=== PATIENT | female | born 1945 | race Caucasian/White ===

== ENCOUNTER → 2018-04-28 08:15 | Outpatient (CLI) | payer MEDICARE, OTHER, SELFPAY ==
[2018-04-28 10:06] LABS: Thyroid Stimulating Hormone 9.02 uIU/mL (0.47-4.68)
== END ==
PROVIDERS: PCP Physician Assistant; Visit Provider Internal Medicine Endocrinology, Diabetes & Metabolism
DX: E03.9 Hypothyroidism, unspecified (principal); Z86.39 Personal history of other endocrine, nutritional and metabolic disease
CPT/HCPCS: 36415; 84443

== ENCOUNTER → 2018-07-01 08:51 | Outpatient (CLI) | payer MEDICARE, OTHER, SELFPAY ==
[2018-07-01 10:56] LABS: Thyroid Stimulating Hormone 1.25 uIU/mL (0.47-4.68)
== END ==
PROVIDERS: PCP Physician Assistant; Visit Provider Internal Medicine Endocrinology, Diabetes & Metabolism
DX: E03.9 Hypothyroidism, unspecified (principal)
CPT/HCPCS: 36415; 84443

== ENCOUNTER → 2018-09-05 15:11 | Outpatient (CLI) | payer MEDICARE, OTHER, SELFPAY ==
--- NOTE | 2018-09-05 | DI.MG.S_ITS ---
BILATERAL DIGITAL SCREENING MAMMOGRAM 3D/2D WITH CAD: 09/05/2018 CLINICAL: Routine screening. Comparison is made to exams dated: 08/25/2017 mammogram, 08/17/2016 mammogram, and 08/16/2015 mammogram - [facility]. The tissue of both breasts is predominantly fatty. Current study was also evaluated with a Computer Aided Detection (CAD) system. No significant masses, calcifications, or other findings are seen in either breast. There has been no significant interval change. IMPRESSION: NEGATIVE There is no mammographic evidence of malignancy. A 1 year screening mammogram is recommended. This exam was interpreted at Station ID: [id number]. NOTE: For mammograms, a report in lay terms will be sent to the patient. Approximately 15% of breast malignancies will not be visualized mammographically. In the management of a palpable breast mass, a negative mammogram must not discourage biopsy of a clinically suspicious lesion. Electronically Signed By: Mayela felix/mal:09/05/2018 15:46:05 letter sent: Normal Exam ACR BI-RADS Category 1: Negative [id number]
== END ==
PROVIDERS: PCP Physician Assistant; Visit Provider Physician Assistant
DX: Z12.31 Encounter for screening mammogram for malignant neoplasm of breast (principal)
CPT/HCPCS: 77063; 77067

== ENCOUNTER → 2018-09-22 11:57 | Outpatient (CLI) | payer MEDICARE, OTHER, SELFPAY | PROVIDERS: Family Provider Physician Assistant; PCP Physician Assistant; Visit Provider Orthopaedic Surgery Foot and Ankle Surgery | DX: Z01.818 Encounter for other preprocedural examination (principal); Z01.812 Encounter for preprocedural laboratory examination; F51.01 Primary insomnia; G47.33 Obstructive sleep apnea (adult) (pediatric) | CPT/HCPCS: 93005; 99214 ==

== ENCOUNTER 2018-09-27 07:42 | Day surgery (SDC) | payer MEDICARE, OTHER, SELFPAY ==
[2018-09-21 14:24] VITALS: BMI 30.2
[2018-09-27] VITALS (7 sets, daily range): BP systolic 120–141; BP diastolic 53–68; PULSE 54–74; RESP 9–17; TEMP 36.3–36.6; O2SAT 90–100; BMI 30.2
[2018-09-27] MEDS: LACTATED RINGERS 1,000 ML 42 ML IV (08:29)
--- NOTE | 2018-09-27 09:18 | PM.PREOP ---
Pre-operative Note Interval Note Pre-op Check: Yes History & Physical Reviewed by Physician and Yes Exam Performed Changes: No
--- NOTE | 2018-09-27 09:32 | P.OP_ITS ---
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 Reconstruction angular deformity toe left, 3rd T2 CPT 22716 2. Removal of painful orthopedic hardware, implant deep, left 2nd toe MTP joint T1 cpt 89307 Same procedure as scheduled: Yes Indications: The patient is a 73-year-old female with history of multiple surgical procedures to her left foot by other physicians. Patient has had a failed angular corrections on the 2nd and 3rd toes. She has a painful angular deformity of the left 3rd toe with lateral collateral ligament failure and crossover and extensor contracture. The patient also has loss of fixation in the metatarsal neck of her 2nd toe with a intra-articular screw causing 2nd MTP pain, joint degeneration and arthritis. The patient has requested revision left 3rd toe angular deformity repair as well as removal of the intra-articular screw at the 2nd MTP joint. The patient understands the object of the surgery is to correct her angular deformity at the 3rd toe. Patient understands that persistent pain, recurrence of deformity, failure of hardware, and general dissatisfaction with the procedure are possibilities. Additionally the patient requests hardware removal from the 2nd MTP joint. Patient understands that this should help with the hardware related pain in this joint but will not change the degenerative changes at the 2nd MTP joint. The risks benefits and alternatives to the procedure were explained to the patient in detail including but not limited to infection, recurrent deformity, incomplete correction, persistent pain, DVT, pulmonary embolism, some interact hardware, progressive arthritis. The patient has elected to proceed with surgery. Consent was signed in the office. Patient understands she will be heel weight-bearing after the surgery and that it is important to elevate above the heart level for the 1st 2 weeks after surgery to reduce swelling and pain. The patient will start the use of aspirin 325 mg for DVT prophylaxis on postoperative day 1. Surgeon: Petrona Hermosillo Click Yes if Unassisted: Yes Anesthesia Type: General and Local Operative Notes Findings: 3rd toe extensor tendon contracture. Angular deformity of the left 3rd toe with incompetence of the lateral collateral ligament. preserved MTPJ articular surface. intact Plantar plate Intra-articular penetration of the small screw at the 2nd MTP joint. extensive Degenerative changes 2nd MTPJ. Closure Type: primary Specimen(s): none sent Implants & Drains: Arthrex 2.2 mm x 4 mm micro titanium corkscrew anchor 0.045 K-wire Applied: other (Dressing) Estimated Blood Loss (mL): 2 Blood products transfused: none Tourniquet time (min): 56 Procedure in detail: Patient was seen in the site of surgery marked in the preoperative area. This was the left foot 2nd and 3rd toes. The patient was then brought back to the operating room placed on the operative table in the supine position and general anesthesia was administered. Bony prominences were padded. A well-padded thigh tourniquet was placed. An SCD was placed on the non operative leg. The left lower extremity was prepped and draped in the standard sterile fashion. Formal time-out procedure was called to confirm the patient, procedure, side and site of surgery, administration of preoperative antibiotics. All personnel were agreed. 2 g of Ancef were administered for the preoperative antibiotic. Correction of angular deformity 3rd toe MTP joint: An Esmarch bandage was used for exsanguination and the tourniquet was elevated to 250 mm of mercury. This stayed there for 56 min. A curved incision was then made over the left 3rd toe MTP joint deviating medially to the interspace between the 2nd and 3rd toes in an Lazy S fashion. Left 3rd toe MTP the joint and extensor tendons were exposed. The extensor tendons were taut. This was Z lengthened for later repair. Capsulotomy was made entering the 3rd MTP joint. Metatarsal head cartilage and proximal phalanx base cartilage was intact. The lateral collateral ligamentous structures were notably deficient and there was medial deviation of the toe at the MTP joint. Plantar plate was visualized and intact. The joint was irrigated. Lateral collateral ligament structures for a very attenuated even back at the metatarsal neck attachment. These were carefully preserved. Lateral collateral ligament was reconstructed using Arthrex micro corkscrew anchor 2.2 x 4 mm. The K-wire guidewire was placed and confirmed on mini C-arm images then the anchor was placed into the base of the proximal phalanx. Additionally due to the attenuated lateral collateral tissues I was concerned for stability of fixation with the suture anchor along therefore a 045 K-wire was placed from the base of the proximal phalanx out the distal phalanx and then retrograde across the MTP joint to hold the MTP joint reduced and act as a temporary back up to the repair. This was confirmed on C- arm. Next The 2 fiber wires from the suturing were then utilized to suture through the remaining lateral collateral tissues at the metatarsal neck. These were tied down. This corrected the deformity well. Final mini C-arm images were taken to confirm hardware placement and alignment. Second MTP joint hardware removal: Attention was then turned to the 2nd MTP joint. The subcutaneous dissection was taken medially over the extensor tendons for the 2nd MTP joint. These were retracted medial and lateral and a capsulotomy was made over the 2nd MTP joint. The loose intra-articular screw was visualized and removed using a rongeur. The MTP joint surface was inspected and found to be significantly degenerative with cartilage loss of sclerosis and osteophytes. The joint was noted to be stable on drawer testing. The wound was then irrigated. The tourniquet was released and hemostasis achieved. The wound was closed in a layered fashion. The extensor tendons over the 3rd MTP joint were repaired using a 4 0 Vicryl. Capsulotomy was closed with 3 O Vicryl. Subcutaneously 4 0 Monocryl was used for repair and then 4 O nylon in the skin. 7 cc of 0.25% Marcaine was used for local anesthesia. Pin cap was placed on the K-wire. A sterile dressing was placed with gauze Xeroform and Kerlix Coleman wrap and the patient was placed into a postoperative boot. Patient was awoken from anesthesia and taken to recovery room in good condition. All counts were correct. There were no known no immediate complications from this procedure. Complications: none Condition: stable Disposition: PACU Plan for aftercare: The patient will be heel weight-bearing in the boot for approximately 4 weeks until her K-wires removed. Sutures remain in place approximately 3 weeks. She will strictly elevate above her heart level the next 2-3 weeks to reduce swelling. She will start taking 325 mg of aspirin daily on postop day 1 for DVT prophylaxis.
[2018-09-27] MEDS: CEFAZOLIN 2 GM/100 ML FROZ.PIGGY IV (09:43)
--- NOTE | 2018-09-27 10:07 | SUR.OPER ---
Supine on padded OR bed, head on pillow, arms secured on padded arm boards at <90 degrees abduction, legs uncrossed, safety belt at abdomen, tape over blanket over nonoperative leg. Blankets as bolsters under operative hip and leg place by surgeon.
[2018-09-27] MEDS: BUPIVACAINE 0.25% (PF) VIAL 30 ML INJ (11:01)
--- NOTE | 2018-09-27 11:21 | SUR.OPER ---
Pump for post operative walker boot sent with patient to Recovery in ziplock bag with patient label attached.
[2018-09-27] MEDS: fentaNYL 100 MCG/2 ML INJ 50 MCG IV ×2 (11:25→11:42)
[2018-09-27] MEDS: HYDROCODONE/ACET 5/325 TABLET 1 TAB PO (12:24)
--- NOTE | 2018-09-27 15:16 | SUR.PHASEII ---
late entry: 1445 assumed care from prem, pt has had her l foot elevated and iced, medicated with po pain meds. pt now states pain in down to 01/01. friend arrived and d/c instructions discussed at length with both, both voiced an understanding. pt then ready to go home, this rn assisted pt to dress and pt left when ready and in stable condition, dressing to l foot remained in boot and c/d/i.
== END 2018-09-27 13:30 | disposition home or self-care (01) ==
PROVIDERS: PCP Physician Assistant; Visit Provider Orthopaedic Surgery Foot and Ankle Surgery
PROC: 0QBP0ZZ Excision of Left Metatarsal, Open Approach (ICD-10-PCS; CPT 28292; principal; 2018-09-27 09:45)
PROC: (CPT 27691; 2018-09-27 09:45)
DX: M20.62 Acquired deformities of toe(s), unspecified, left foot (principal); T84.84XA Pain due to internal orthopedic prosthetic devices, implants and grafts, initial encounter; G47.33 Obstructive sleep apnea (adult) (pediatric); E03.9 Hypothyroidism, unspecified
CPT/HCPCS: 28313; 20680; J0690; J1100; J2704; J3010

== ENCOUNTER → 2018-10-19 08:32 | Outpatient (CLI) | payer MEDICARE, OTHER, SELFPAY ==
[2018-10-19 10:46] LABS: Thyroid Stimulating Hormone 2.34 uIU/mL (0.47-4.68)
== END ==
PROVIDERS: Family Provider Physician Assistant; PCP Physician Assistant; Visit Provider Internal Medicine Endocrinology, Diabetes & Metabolism
DX: E03.9 Hypothyroidism, unspecified (principal)
CPT/HCPCS: 36415; 84443

== ENCOUNTER → 2019-02-27 08:12 | Outpatient (CLI) | payer MEDICARE, OTHER, SELFPAY ==
[2019-02-27 09:00] LABS: Add Manual Diff / Slide Review NO; Basophils Absolute Auto 0 /uL (0-100); Basophils Percent Auto 0.8 % (0-2); Eosinophils Absolute Auto 100 /uL (0-450); Eosinophils Percent Auto 3.8 % (2-4); Hematocrit 38.3 % (36-46); Hemoglobin 12.8 g/dL (12.0-16.0); Lymphocytes Absolute Auto 800 /uL (1100-4500); Lymphocytes Percent Auto 22.8 % (25-40); Mean Corpuscular HGB Conc 33.4 % (30-36); Mean Corpuscular Hemoglobin 30.6 PG (26-34); Mean Corpuscular Volume 91.5 fL (80-100); Monocytes Absolute Auto 300 /uL (0-900); Monocytes Percent Auto 9.8 % (3-14); Neutrophils Absolute Auto 2200 /uL (1500-7000); Neutrophils Percent Auto 62.8 % (50-75); Platelet Count 215 X10^3/uL (150-400); Red Blood Cell Count 4.18 X10^6/uL (4.0-5.2); Red Cell Distribution Width 13.5 % (11.6-14.8); White Blood Cell Count 3.6 X10^3/uL (4.5-11.0)
[2019-02-27 09:30] LABS: Alanine Aminotransferase 28 IU/L (9-52); Albumin 4.3 g/dL (3.5-5.0); Albumin Globulin Ratio 1.5 (1.0-2.8); Alkaline Phosphatase 74 U/L (38-126); Aspartate Aminotransferase 25 IU/L (14-36); BUN Creatinine Ratio 21.7 (6-22); Bilirubin Total 0.5 mg/dL (0.2-1.3); Blood Urea Nitrogen 13 mg/dL (7-17); Carbon Dioxide 28 mmol/L (22-32); Chloride 99 mmol/L (98-107); Cholesterol 141 mg/dL (140-199); Estimated Glomerular Filt Rate > 60.0 mL/min (>60); Globulin 2.8 g/dL (1.7-4.1); Glucose 89 mg/dL (80-110); HDL Cholesterol 49 mg/dL (40-60); HEMOLYSIS < 15 (0-50); LDL Cholesterol Calculated 76 mg/dL (<100); Potassium 4.5 mmol/L (3.4-5.1); Sodium 136 mmol/L (137-145); Total Protein 7.1 g/dL (6.3-8.2); Triglycerides 79 mg/dL (35-150)
[2019-02-27 09:51] LABS: Thyroid Stimulating Hormone 1.17 uIU/mL (0.47-4.68)
== END ==
PROVIDERS: PCP Physician Assistant; Visit Provider Physician Assistant
DX: E78.2 Mixed hyperlipidemia (principal); I10 Essential (primary) hypertension; E03.9 Hypothyroidism, unspecified
CPT/HCPCS: 36415; 80053; 80061; 84443; 85025

== ENCOUNTER → 2019-03-17 08:32 | Outpatient (CLI) | payer MEDICARE, OTHER, SELFPAY ==
--- NOTE | 2019-03-17 | DI.MG.S_ITS ---
UNILATERAL LEFT DIGITAL DIAGNOSTIC MAMMOGRAM 3D/2D: 03/17/2019 CLINICAL: Left lump with pain. Comparison is made to exams dated: 09/05/2018 mammogram, 08/25/2017 mammogram, and 08/17/2016 mammogram - [facility]. There are scattered fibroglandular elements in left breast. No significant masses, calcifications, or other findings are seen in the breast. IMPRESSION: INCOMPLETE: NEEDS ADDITIONAL IMAGING EVALUATION A targeted ultrasound of the left breast is recommended and will be performed immediately following this exam. Ultrasound is recommended. This exam was interpreted at Station ID: [id number]. NOTE: For mammograms, a report in lay terms will be sent to the patient. Approximately 15% of breast malignancies will not be visualized mammographically. In the management of a palpable breast mass, a negative mammogram must not discourage biopsy of a clinically suspicious lesion. Electronically Signed By: Mayela felix/mal:03/17/2019 09:22:48 ACR BI-RADS Category 0: Incomplete [id number]
--- NOTE | 2019-03-17 | DI.US.S_ITS ---
ULTRASOUND OF LEFT BREAST: 03/17/2019 CLINICAL: Left areola tenderness. Comparison is made to exams dated: 03/17/2019 mammogram, 09/05/2018 mammogram, 08/25/2017 mammogram, 08/17/2016 mammogram, and 08/16/2015 mammogram - [facility]. Color flow and real-time ultrasound of the left breast were performed on the areas of interest. Florentino scale images of the real-time examination were reviewed. There is no ultrasound abnormality to correspond with the palpable finding by the patient in the subareolar region. IMPRESSION: SUSPICIOUS OF MALIGNANCY No suspicious lesion within the subareolar region to correspond with the palpable abnormality. Of note, the patient describes a raised, erythematous region on the left areola. Paget's disease cannot be excluded. Surgical consultation for subareolar excisional biopsy is recommended. This exam was interpreted at Station ID: [id number]. Electronically Signed By: Mayela felix/:03/21/2019 15:23:29 letter sent: Biopsy Required Ultrasound BI-RADS: 4 Suspicious abnormality
== END ==
PROVIDERS: PCP Physician Assistant; Visit Provider Physician Assistant
DX: R92.8 Other abnormal and inconclusive findings on diagnostic imaging of breast (principal); N64.4 Mastodynia; M85.851 Other specified disorders of bone density and structure, right thigh; Z78.0 Asymptomatic menopausal state; Z82.62 Family history of osteoporosis
CPT/HCPCS: 76642; 77065; 77080; G0279

== ENCOUNTER 2019-06-26 14:30 | Outpatient (RCR) | payer MEDICARE, OTHER, SELFPAY ==
--- NOTE | 2019-03-14 12:03 | PT.OIE ---
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) Obstructive sleep apnea of adult (Chronic) Primary insomnia (Chronic) Allergic rhinitis (Acute) Chronic cough (Acute) HTN (hypertension) (Acute) Hyperlipidemia (Acute) Hypothyroidism (Acute) Lichen sclerosus et atrophicus (Acute) GLORIA on CPAP (Acute) Osteoarthritis (Acute) Osteopenia (Acute) Vitamin D deficiency (Acute) Past Surgical History (Last Updated 09/21/18 @ 14:50 by Jaclyn Tello RN) History of facelift (Acute) Hx of bilateral breast reduction surgery (Acute) Hx of bladder repair surgery (Acute) Hx of partial thyroidectomy (Acute) Hx of partial thyroidectomy (Acute) S/P UVPP (uvulopalatopharyngoplasty) (Acute) S/P foot surgery, right (Acute) S/P trigger finger release (Acute) History of breast mammoplasty (Resolved) Provider Visit Care Team Role Provider Type Hamida Schaefer PA-C Attending Provider Advanced Rounder And Backer Primary Care Provider Specialty: Internal Medicine Address: [address] [place] [address], [facility] Email: Physical Therapy Initial Evaluation PT-OP-A Visit Information Start: 03/13/19 17:35 Freq: Status: Active Protocol: Document 03/14/19 08:10 [facility] (Rec: 03/14/19 09:10 [facility] [id number]) Out-Patient Physical Therapy Visit Information Visit Information Visit Type Initial Evaluation Visit Start Time 08:15 Visit Stop Time 09:00 Total Visit Minutes 45 Visit Number 1 Number of PREVENTION COORDINATOR Visits 0 PT-OP-B Current Condition Start: 03/13/19 17:35 Freq: Status: Active Protocol: Document 03/14/19 08:10 [facility] (Rec: 03/14/19 09:10 [facility] [id number]) Current Condition History of Current Condition Onset Date 6 weeks ago flare up Current Complaints R shoulder pain History of Current Condition Pt reports a few years ago, she was decorating the [employer] tree and reached up high and it felt like someone stabbed a dagger into her shoulder then saw the MD and got a MRI which showed a small tear in the rotator cuff and a small bone spur and torn biceps. Pt reports she has had 4 instances since then that have set it off. Pt reports when it does it then it sets her back several weeks. There is no specific movement that seems to flare it up. Reports she was travelling this time and her ROM as very limited for reaching out and up and still is. Pt stopped doing her upper body exercises when this initially happened d/t being concerned to hurt it more. Prior Treatments and Tests MRI years ago Future Testing and Treatments Planned Follow up with ortho Treatment Goals Patient/Caregiver Goals Start PT before seeing ortho; make her shoulder managable, livable and reliable. PT-OP-C Subjective Start: 03/13/19 17:35 Freq: Status: Active Protocol: Document 03/14/19 08:10 [facility] (Rec: 03/14/19 09:10 [facility] [id number]) Patient Questionnaires Quick Dash- Upper Extremity Quick Dash UE Score 25 Quick Dash UE Impairment 20 to 39% Impaired (Score 20- 39) OP-PT Pain Assessment Location R shoulder Pain Location Details R ant lat shoulder Scale Used Numeric (1 - 10) Description Sharp Other Pain Aggravating Factors driving, reaching Pain Alleviating Factors Rest Other Pain Alleviating Factors cream PT-OP-J Posture/Palpation/Skin Start: 03/13/19 17:35 Freq: Status: Active Protocol: Document 03/14/19 08:10 [facility] (Rec: 03/14/19 09:10 [facility] [id number]) Posture Evaluation Eddie Postural Classification System Eddie Postural Classifications Vertical/Posterior Comments Posture Comments inc kyphosis & fwd head & shoulders PT-OP-K Range of Motion Start: 03/13/19 17:35 Freq: Status: Active Protocol: Document 03/14/19 08:10 [facility] (Rec: 03/14/19 09:10 [facility] [id number]) Shoulder Goniometric Range of Motion Shoulder Measured in Degrees Right Passive Testing Position Supine Flexion 140 Abduction 114 External Rotation at 90 degrees 78 Abduction Internal Rotation 38 Left Active Testing Position Standing Flexion 168 Extension 71 Abduction 160 External Rotation at 90 degrees 85 Abduction External Rotation at 0 degrees Abduction 78 Internal Rotation 80 Internal Rotation Behind Back (text) T6 Right Active Testing Position Standing Flexion 88 Extension 40 Abduction 93 External Rotation at 0 degrees Abduction 50 Internal Rotation Behind Back (text) sacrum PT-OP-L Special Tests Start: 03/13/19 17:35 Freq: Status: Active Protocol: Document 03/14/19 08:10 [facility] (Rec: 03/14/19 09:10 [facility] [id number]) Special Tests Shoulder Special Tests speeds Test Results positive yergesons Test Results negative Barbosa Agustin Impingement Test Results positive Neer Impingement Test Results positive Empty Can Test Results positive PT-OP-M Strength Start: 03/13/19 17:35 Freq: Status: Active Protocol: Document 03/14/19 08:10 [facility] (Rec: 03/14/19 09:10 [facility] [id number]) Shoulder Strength Shoulder Manual Muscle Testing Right Flexion 3- Fair- Extension 4- Good- Abduction (C5) 3- Fair- External Rotation 4- Good- Internal Rotation 4 Good Left Flexion 4- Good- Extension 4+ Good+ Abduction (C5) 4- Good- External Rotation 5 Normal Internal Rotation 5 Normal PT-OP-Q Treatments Start: 03/13/19 17:35 Freq: Status: Active Protocol: Document 03/14/19 08:10 [facility] (Rec: 03/14/19 09:10 [facility] [id number]) Therapeutic Exercises Standing Exercises shoulder ext Standing Exercise Name row Side bilateral Equipment Used L1 Reps/Minutes 15 stretch Standing Exercise Name UT Side bilateral Reps/Minutes 20 sec Self-Care/Home Management Treatment Education Other Education edu on mechanics & anatomy of shoulder PT-OP-T Assessment and Plan Start: 03/13/19 17:35 Freq: Status: Active Protocol: Document 03/14/19 08:10 [facility] (Rec: 03/14/19 09:10 [facility] [id number]) Physical Therapy Assessment Rehab Potential Rehabilitation Potential Good Evaluation Complexity Number of Personal Factors/Comorbidities 3 or More Number of Body Systems Impaired 4 or More Clinical Presentation at Evaluation Evolving Impairments Impairments Activity Tolerance Functional Activities Functional Mobility Pain Posture ROM Soft Tissue Mobility Strength Goals DASH Skilled Nursing Goal (LTG) DASH score to less than 8 to show improved functional ability LTG Duration 05/14/19 ROM Short Term Goal (STG) Pt will have full PROM to allow improvement in motion. STG Duration 04/13/29 Tiler'S Assistant Goal (LTG) Pt will have R full AROM as compared to L side to allow greater ease with ADLs. LTG Duration 05/14/19 strength Short Term Goal (STG) Pt will be indep with HEP STG Duration 04/13/19 Skilled Nursing Goal (LTG) Pt will have 5/5 in B UE allowing return to typical activities without pain. LTG Duration 05/14/19 Assessment Summary Assessment Pt reports to PT with flare of of R shoulder pain 6 weeks ago with hx of chronic issue and MRI indicating biceps & rotator cuff tears with AC joint calcification. She is motivated to improve her mobility and will follow up with an orthopedic in the next month to determine next step. She has limited ROM, impaired ADLs, dec strength and pain with activity that limits her significantly d/t R shoulder pain. Physical Therapy Plan Frequency and Duration Frequency of Treatment 2x/Week Duration of Treatment 2 months Plan of Care Start Date 03/14/29 Plan of Care End Date 05/14/19 Therapeutic Interventions Therapeutic Interventions Aquatic Therapy Home Exercise Program Joint Mobilizations Manual Therapy Neuromuscular Re-education Patient/Caregiver Education Self-Care/Home Management Soft Tissue Mobilization Taping Therapeutic Activities Therapeutic Exercises Modalities Cold Pack/Ice Massage Electric Stimulation Hot Packs Infrared Therapy Iontophoresis Ultrasound Next Visit Focus/Plan Next Note Type Treatment Note Next Visit Plan LS stretch, scapular stability , PROM & joint GILLIAN mcgrath
--- NOTE | 2019-03-14 12:03 | PT.OPPOC ---
Current Diagnoses Incomplete rotator cuff tear or rupture of right shoulder, not specified as traumatic (03/14/19) Provider Visit Care Team Role Provider Type Hamida Schaefer PA-C Attending Provider Advanced [employer] Primary Care Provider Specialty: Internal Medicine Address: [address] [place] [address], [id number] Email: Plan Of Care PT-OP-T Assessment and Plan Start: 03/13/19 17:35 Freq: Status: Active Protocol: Document 03/14/19 08:10 [facility] (Rec: 03/14/19 09:10 [facility] [id number]) Physical Therapy Assessment Rehab Potential Rehabilitation Potential Good Evaluation Complexity Number of Personal Factors/Comorbidities 3 or More Number of Body Systems Impaired 4 or More Clinical Presentation at Evaluation Evolving Impairments Impairments Activity Tolerance Functional Activities Functional Mobility Pain Posture ROM Soft Tissue Mobility Strength Goals DASH Long-Term Goal (LTG) DASH score to less than 8 to show improved functional ability LTG Duration 05/14/19 ROM Short Term Goal (STG) Pt will have full PROM to allow improvement in motion. STG Duration 04/13/29 Senior Process Analyst Goal (LTG) Pt will have R full AROM as compared to L side to allow greater ease with ADLs. LTG Duration 05/14/19 strength Short Term Goal (STG) Pt will be indep with HEP STG Duration 04/13/19 Senior Process Analyst Goal (LTG) Pt will have 5/5 in B UE allowing return to typical activities without pain. LTG Duration 05/14/19 Assessment Summary Assessment Pt reports to PT with flare of of R shoulder pain 6 weeks ago with hx of chronic issue and MRI indicating biceps & rotator cuff tears with AC joint calcification. She is motivated to improve her mobility and will follow up with an orthopedic in the next month to determine next step. She has limited ROM, impaired ADLs, dec strength and pain with activity that limits her significantly d/t R shoulder pain. Physical Therapy Plan Frequency and Duration Frequency of Treatment 2x/Week Duration of Treatment 2 months Plan of Care Start Date 03/14/29 Plan of Care End Date 05/14/19 Therapeutic Interventions Therapeutic Interventions Aquatic Therapy Home Exercise Program Joint Mobilizations Manual Therapy Neuromuscular Re-education Patient/Caregiver Education Self-Care/Home Management Soft Tissue Mobilization Taping Therapeutic Activities Therapeutic Exercises Modalities Cold Pack/Ice Massage Electric Stimulation Hot Packs Infrared Therapy Iontophoresis Ultrasound Next Visit Focus/Plan Next Note Type Treatment Note Next Visit Plan LS stretch, scapular stability , PROM & joint mobs, AAROM Plan of Care Dates Plan of Care Start Date 03/14/29 Plan of Care End Date 05/14/19 Please Sign and Return: I have reviewed this Plan of Care and certify that the skilled therapy services above are required to meet the patient?s needs. Physician Signature Date Printed Name and Credentials Clinical Instructor Signature Printed Name and Credentials
--- NOTE | 2019-03-17 08:15 | PT.OTN ---
Current Diagnoses Incomplete rotator cuff tear or rupture of right shoulder, not specified as traumatic (03/17/19) Physical Therapy Treatment Note PT-OP-A Visit Information Start: 03/13/19 17:35 Freq: Status: Active Protocol: Document 03/17/19 07:28 [facility] (Rec: 03/17/19 08:15 [facility] [id number]) Out-Patient Physical Therapy Visit Information Visit Information Visit Type Treatment Note Visit Start Time 07:35 Visit Stop Time 08:25 Total Visit Minutes 50 Visit Number 2/10 Number of LICENSED OPTICAL DISPENSER Visits 0 PT-OP-B Current Condition Start: 03/13/19 17:35 Freq: Status: Active Protocol: Document 03/14/19 08:10 [facility] (Rec: 03/14/19 09:10 [facility] [id number]) Current Condition History of Current Condition Onset Date 6 weeks ago flare up Current Complaints R shoulder pain History of Current Condition Pt reports a few years ago, she was decorating the [employer] tree and reached up high and it felt like someone stabbed a dagger into her shoulder then saw the MD and got a MRI which showed a small tear in the rotator cuff and a small bone spur and torn biceps. Pt reports she has had 4 instances since then that have set it off. Pt reports when it does it then it sets her back several weeks. There is no specific movement that seems to flare it up. Reports she was travelling this time and her ROM as very limited for reaching out and up and still is. Pt stopped doing her upper body exercises when this initially happened d/t being concerned to hurt it more. Prior Treatments and Tests MRI years ago Future Testing and Treatments Planned Follow up with ortho Treatment Goals Patient/Caregiver Goals Start PT before seeing ortho; make her shoulder managable, livable and reliable. PT-OP-C Subjective Start: 03/13/19 17:35 Freq: Status: Active Protocol: Document 03/17/19 07:28 [facility] (Rec: 03/17/19 08:15 [facility] [id number]) OP-PT Subjective Patient Comments Patient Comments Pt reports exercises went okay . PT-OP-J Posture/Palpation/Skin Start: 03/13/19 17:35 Freq: Status: Active Protocol: Document 03/14/19 08:10 [facility] (Rec: 03/14/19 09:10 [facility] [id number]) Posture Evaluation Eddie Postural Classification System [facility] Postural Classifications Vertical/Posterior Comments Posture Comments inc kyphosis & fwd head & shoulders PT-OP-K Range of Motion Start: 03/13/19 17:35 Freq: Status: Active Protocol: Document 03/14/19 08:10 [facility] (Rec: 03/14/19 09:10 [facility] [id number]) Shoulder Goniometric Range of Motion Shoulder Measured in Degrees Right Passive Testing Position Supine Flexion 140 Abduction 114 External Rotation at 90 degrees 78 Abduction Internal Rotation 38 Left Active Testing Position Standing Flexion 168 Extension 71 Abduction 160 External Rotation at 90 degrees 85 Abduction External Rotation at 0 degrees Abduction 78 Internal Rotation 80 Internal Rotation Behind Back (text) T6 Right Active Testing Position Standing Flexion 88 Extension 40 Abduction 93 External Rotation at 0 degrees Abduction 50 Internal Rotation Behind Back (text) sacrum PT-OP-L Special Tests Start: 03/13/19 17:35 Freq: Status: Active Protocol: Document 03/14/19 08:10 [facility] (Rec: 03/14/19 09:10 [facility] [id number]) Special Tests Shoulder Special Tests speeds Test Results positive yergesons Test Results negative Barbosa Agustin Impingement Test Results positive Neer Impingement Test Results positive Empty Can Test Results positive PT-OP-M Strength Start: 03/13/19 17:35 Freq: Status: Active Protocol: Document 03/14/19 08:10 [facility] (Rec: 03/14/19 09:10 [facility] [id number]) Shoulder Strength Shoulder Manual Muscle Testing Right Flexion 3- Fair- Extension 4- Good- Abduction (C5) 3- Fair- External Rotation 4- Good- Internal Rotation 4 Good Left Flexion 4- Good- Extension 4+ Good+ Abduction (C5) 4- Good- External Rotation 5 Normal Internal Rotation 5 Normal PT-OP-Q Treatments Start: 03/13/19 17:35 Freq: Status: Active Protocol: Document 03/17/19 07:28 [facility] (Rec: 03/17/19 08:15 [facility] [id number]) Therapeutic Exercises Standing Exercises IR Standing Exercise Name w/towel Reps/Minutes 12 pully Standing Exercise Name flex, abd, IR Reps/Minutes 15 Comments flex & abd seated shoulder ext Standing Exercise Name row Side bilateral Equipment Used L1 Reps/Minutes 15 stretch Standing Exercise Name UT, LS, pec Side bilateral Reps/Minutes 20 sec Manual Therapy Treatment Soft Tissue Mobilization UT Body Location UT Mobilization Type Rolling Intensity/Depth Moderate Joint Mobilizations GH Joint GH Direction distraction, inf glide & post glide PT-OP-R Modalities Start: 03/13/19 17:35 Freq: Status: Active Protocol: Document 03/17/19 07:28 [facility] (Rec: 03/17/19 08:15 [facility] [id number]) Hot Pack/Cold Pack Treatment Cold Pack Location R shoulder Patient Position Supine Treatment Duration (minutes) 10 PT-OP-T Assessment and Plan Start: 03/13/19 17:35 Freq: Status: Active Protocol: Document 03/17/19 07:28 [facility] (Rec: 03/17/19 08:15 [facility] [id number]) Physical Therapy Assessment Goals DASH Prison Goal (LTG) DASH score to less than 8 to show improved functional ability LTG Duration 05/14/19 ROM Short Term Goal (STG) Pt will have full PROM to allow improvement in motion. STG Duration 04/13/29 Plastic Welder Goal (LTG) Pt will have R full AROM as compared to L side to allow greater ease with ADLs. LTG Duration 05/14/19 strength Short Term Goal (STG) Pt will be indep with HEP STG Duration 04/13/19 Prison Goal (LTG) Pt will have 5/5 in B UE allowing return to typical activities without pain. LTG Duration 05/14/19 Assessment Summary Assessment Pt was able to tolerate all exercises without c/o inc in pain. She did well with exercises iwth cueing for form . She felt all stretches appropriately. Improved ROM with repetition with exercises . Physical Therapy Plan Frequency and Duration Frequency of Treatment 2x/Week Duration of Treatment 2 months Plan of Care Start Date 03/14/29 Plan of Care End Date 05/14/19 Next Visit Focus/Plan Next Note Type Treatment Note Next Visit Plan Tbar AAROM, cont to progress ROM
--- NOTE | 2019-03-20 14:32 | PT.OTN ---
Current Diagnoses Incomplete rotator cuff tear or rupture of right shoulder, not specified as traumatic (03/20/19) Physical Therapy Treatment Note PT-OP-A Visit Information Start: 03/13/19 17:35 Freq: Status: Active Protocol: Document 03/20/19 13:47 [facility] (Rec: 03/20/19 14:32 [facility] [id number]) Out-Patient Physical Therapy Visit Information Visit Information Visit Type Treatment Note Visit Start Time 13:50 Visit Stop Time 14:40 Total Visit Minutes 50 Visit Number 3/10 Number of DOLLY DRIVER Visits 0 PT-OP-B Current Condition Start: 03/13/19 17:35 Freq: Status: Active Protocol: Document 03/14/19 08:10 [facility] (Rec: 03/14/19 09:10 [facility] [id number]) Current Condition History of Current Condition Onset Date 6 weeks ago flare up Current Complaints R shoulder pain History of Current Condition Pt reports a few years ago, she was decorating the [employer] tree and reached up high and it felt like someone stabbed a dagger into her shoulder then saw the MD and got a MRI which showed a small tear in the rotator cuff and a small bone spur and torn biceps. Pt reports she has had 4 instances since then that have set it off. Pt reports when it does it then it sets her back several weeks. There is no specific movement that seems to flare it up. Reports she was travelling this time and her ROM as very limited for reaching out and up and still is. Pt stopped doing her upper body exercises when this initially happened d/t being concerned to hurt it more. Prior Treatments and Tests MRI years ago Future Testing and Treatments Planned Follow up with ortho Treatment Goals Patient/Caregiver Goals Start PT before seeing ortho; make her shoulder managable, livable and reliable. PT-OP-C Subjective Start: 03/13/19 17:35 Freq: Status: Active Protocol: Document 03/20/19 13:47 [facility] (Rec: 03/20/19 14:32 [facility] [id number]) OP-PT Subjective Patient Comments Patient Comments Pt reports feeling physically exhausted and arms were tired after last session. She hasn't had a chance to do exercises. Reports she was reaching fwd and had a pain this weekend when making salad PT-OP-J Posture/Palpation/Skin Start: 03/13/19 17:35 Freq: Status: Active Protocol: Document 03/14/19 08:10 [facility] (Rec: 03/14/19 09:10 [facility] [id number]) Posture Evaluation Eddie Postural Classification System Eddie Postural Classifications Vertical/Posterior Comments Posture Comments inc kyphosis & fwd head & shoulders PT-OP-K Range of Motion Start: 03/13/19 17:35 Freq: Status: Active Protocol: Document 03/14/19 08:10 [facility] (Rec: 03/14/19 09:10 [facility] [id number]) Shoulder Goniometric Range of Motion Shoulder Measured in Degrees Right Passive Testing Position Supine Flexion 140 Abduction 114 External Rotation at 90 degrees 78 Abduction Internal Rotation 38 Left Active Testing Position Standing Flexion 168 Extension 71 Abduction 160 External Rotation at 90 degrees 85 Abduction External Rotation at 0 degrees Abduction 78 Internal Rotation 80 Internal Rotation Behind Back (text) T6 Right Active Testing Position Standing Flexion 88 Extension 40 Abduction 93 External Rotation at 0 degrees Abduction 50 Internal Rotation Behind Back (text) sacrum PT-OP-L Special Tests Start: 03/13/19 17:35 Freq: Status: Active Protocol: Document 03/14/19 08:10 [facility] (Rec: 03/14/19 09:10 [facility] [id number]) Special Tests Shoulder Special Tests speeds Test Results positive yergesons Test Results negative Barbosa Agustin Impingement Test Results positive Neer Impingement Test Results positive Empty Can Test Results positive PT-OP-M Strength Start: 03/13/19 17:35 Freq: Status: Active Protocol: Document 03/14/19 08:10 [facility] (Rec: 03/14/19 09:10 [facility] [id number]) Shoulder Strength Shoulder Manual Muscle Testing Right Flexion 3- Fair- Extension 4- Good- Abduction (C5) 3- Fair- External Rotation 4- Good- Internal Rotation 4 Good Left Flexion 4- Good- Extension 4+ Good+ Abduction (C5) 4- Good- External Rotation 5 Normal Internal Rotation 5 Normal PT-OP-Q Treatments Start: 03/13/19 17:35 Freq: Status: Active Protocol: Document 03/20/19 13:47 [facility] (Rec: 03/20/19 14:32 [facility] [id number]) Therapeutic Exercises Supine Exercises tbar Supine Exercise Name flex & ER Side right Reps/Minutes 10 ea Standing Exercises IR Standing Exercise Name w/towel Reps/Minutes 10 pully Standing Exercise Name flex, abd, IR Reps/Minutes 15 Comments flex & abd seated shoulder ext Standing Exercise Name row Side bilateral Equipment Used L1 Reps/Minutes 15 stretch Standing Exercise Name UT, LS, pec Side bilateral Reps/Minutes 30 sec Manual Therapy Treatment Soft Tissue Mobilization UT Body Location UT Mobilization Type Rolling Intensity/Depth Moderate Joint Mobilizations GH Joint GH Direction distraction, inf glide & post glide PT-OP-R Modalities Start: 03/13/19 17:35 Freq: Status: Active Protocol: Document 03/20/19 13:47 [facility] (Rec: 03/20/19 14:32 [facility] [id number]) Hot Pack/Cold Pack Treatment Cold Pack Location R shoulder Patient Position Supine Treatment Duration (minutes) 10 PT-OP-T Assessment and Plan Start: 03/13/19 17:35 Freq: Status: Active Protocol: Document 03/20/19 13:47 [facility] (Rec: 03/20/19 14:32 [facility] [id number]) Physical Therapy Assessment Goals DASH Rice Cleaning Machine Tender Goal (LTG) DASH score to less than 8 to show improved functional ability LTG Duration 05/14/19 ROM Short Term Goal (STG) Pt will have full PROM to allow improvement in motion. STG Duration 04/13/29 Prison Goal (LTG) Pt will have R full AROM as compared to L side to allow greater ease with ADLs. LTG Duration 05/14/19 strength Short Term Goal (STG) Pt will be indep with HEP STG Duration 04/13/19 Prison Goal (LTG) Pt will have 5/5 in B UE allowing return to typical activities without pain. LTG Duration 05/14/19 Assessment Summary Assessment Pt cont to improve with tolerance to inc range with PROM & AAROM exercises. She required very min cueing for HEP exercises with cueing to stay in painfree range. Physical Therapy Plan Frequency and Duration Frequency of Treatment 2x/Week Duration of Treatment 2 months Plan of Care Start Date 03/14/29 Plan of Care End Date 05/14/19 Next Visit Focus/Plan Next Note Type Treatment Note Next Visit Plan Advance ROM as tolerated & scapular stability
--- NOTE | 2019-03-23 11:19 | PT.OTN ---
Current Diagnoses Incomplete rotator cuff tear or rupture of right shoulder, not specified as traumatic (03/23/19) Physical Therapy Treatment Note PT-OP-A Visit Information Start: 03/13/19 17:35 Freq: Status: Active Protocol: Document 03/23/19 10:29 [facility] (Rec: 03/23/19 11:19 [facility] [id number]) Out-Patient Physical Therapy Visit Information Visit Information Visit Type Treatment Note Visit Start Time 10:30 Visit Stop Time 11:20 Total Visit Minutes 50 Visit Number 4/10 Number of SECONDS HANDLER Visits 0 PT-OP-B Current Condition Start: 03/13/19 17:35 Freq: Status: Active Protocol: Document 03/14/19 08:10 [facility] (Rec: 03/14/19 09:10 [facility] [id number]) Current Condition History of Current Condition Onset Date 6 weeks ago flare up Current Complaints R shoulder pain History of Current Condition Pt reports a few years ago, she was decorating the [employer] tree and reached up high and it felt like someone stabbed a dagger into her shoulder then saw the MD and got a MRI which showed a small tear in the rotator cuff and a small bone spur and torn biceps. Pt reports she has had 4 instances since then that have set it off. Pt reports when it does it then it sets her back several weeks. There is no specific movement that seems to flare it up. Reports she was travelling this time and her ROM as very limited for reaching out and up and still is. Pt stopped doing her upper body exercises when this initially happened d/t being concerned to hurt it more. Prior Treatments and Tests MRI years ago Future Testing and Treatments Planned Follow up with ortho Treatment Goals Patient/Caregiver Goals Start PT before seeing ortho; make her shoulder managable, livable and reliable. PT-OP-C Subjective Start: 03/13/19 17:35 Freq: Status: Active Protocol: Document 03/23/19 10:29 [facility] (Rec: 03/23/19 11:19 [facility] [id number]) OP-PT Subjective Patient Comments Patient Comments Pt reports she has done a lot of yard work and hasn't done the exercises d/t fatigue. 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 PT-OP-J Posture/Palpation/Skin Start: 03/13/19 17:35 Freq: Status: Active Protocol: Document 03/14/19 08:10 [facility] (Rec: 03/14/19 09:10 [facility] [id number]) Posture Evaluation Eddie Postural Classification System Eddie Postural Classifications Vertical/Posterior Comments Posture Comments inc kyphosis & fwd head & shoulders PT-OP-K Range of Motion Start: 03/13/19 17:35 Freq: Status: Active Protocol: Document 03/14/19 08:10 [facility] (Rec: 03/14/19 09:10 [facility] [id number]) Shoulder Goniometric Range of Motion Shoulder Measured in Degrees Right Passive Testing Position Supine Flexion 140 Abduction 114 External Rotation at 90 degrees 78 Abduction Internal Rotation 38 Left Active Testing Position Standing Flexion 168 Extension 71 Abduction 160 External Rotation at 90 degrees 85 Abduction External Rotation at 0 degrees Abduction 78 Internal Rotation 80 Internal Rotation Behind Back (text) T6 Right Active Testing Position Standing Flexion 88 Extension 40 Abduction 93 External Rotation at 0 degrees Abduction 50 Internal Rotation Behind Back (text) sacrum PT-OP-L Special Tests Start: 03/13/19 17:35 Freq: Status: Active Protocol: Document 03/14/19 08:10 [facility] (Rec: 03/14/19 09:10 [facility] [id number]) Special Tests Shoulder Special Tests speeds Test Results positive yergesons Test Results negative Barbosa Agustin Impingement Test Results positive Neer Impingement Test Results positive Empty Can Test Results positive PT-OP-M Strength Start: 03/13/19 17:35 Freq: Status: Active Protocol: Document 03/14/19 08:10 [facility] (Rec: 03/14/19 09:10 [facility] [id number]) Shoulder Strength Shoulder Manual Muscle Testing Right Flexion 3- Fair- Extension 4- Good- Abduction (C5) 3- Fair- External Rotation 4- Good- Internal Rotation 4 Good Left Flexion 4- Good- Extension 4+ Good+ Abduction (C5) 4- Good- External Rotation 5 Normal Internal Rotation 5 Normal PT-OP-Q Treatments Start: 03/13/19 17:35 Freq: Status: Active Protocol: Document 03/23/19 10:29 [facility] (Rec: 03/23/19 11:19 [facility] [id number]) Cardio Equipment Upper Body Ergometer (UBE) Duration (Minutes) 4 RPM 60 Seat Position 9 Height 3.5 Other fwd/back Therapeutic Exercises Supine Exercises tbar Supine Exercise Name flex & ER Side right Reps/Minutes 10 ea Standing Exercises ER Standing Exercise Name B ER Side bilateral Equipment Used lvl 1 Reps/Minutes 15 pully Standing Exercise Name flex, abd, IR Reps/Minutes 20 Comments flex & abd seated shoulder ext Standing Exercise Name row Side bilateral Equipment Used L1 Reps/Minutes 15 stretch Standing Exercise Name UT, LS, pec Side bilateral Reps/Minutes 30 sec Manual Therapy Treatment Soft Tissue Mobilization UT Body Location UT Mobilization Type Rolling Intensity/Depth Moderate Joint Mobilizations GH Joint GH Direction distraction, inf glide & post glide PT-OP-R Modalities Start: 03/13/19 17:35 Freq: Status: Active Protocol: Document 03/23/19 10:29 [facility] (Rec: 03/23/19 11:19 [facility] [id number]) Hot Pack/Cold Pack Treatment Cold Pack Location R shoulder Patient Position Supine Treatment Duration (minutes) 10 PT-OP-T Assessment and Plan Start: 03/13/19 17:35 Freq: Status: Active Protocol: Document 03/23/19 10:29 [facility] (Rec: 03/23/19 11:19 [facility] [id number]) Physical Therapy Assessment Goals DASH Retirement Goal (LTG) DASH score to less than 8 to show improved functional ability LTG Duration 05/14/19 ROM Short Term Goal (STG) Pt will have full PROM to allow improvement in motion. STG Duration 04/13/29 Beverage Distiller Goal (LTG) Pt will have R full AROM as compared to L side to allow greater ease with ADLs. LTG Duration 05/14/19 strength Short Term Goal (STG) Pt will be indep with HEP STG Duration 04/13/19 Retirement Goal (LTG) Pt will have 5/5 in B UE allowing return to typical activities without pain. LTG Duration 05/14/19 Assessment Summary Assessment Pt instructed to cont with stretches on days that she has done a lot of fatigueing work and do strengthening at least a few times a week. She is progressing with ROM overall and is tolerating increasing ROM overhead and into IR. Physical Therapy Plan Frequency and Duration Frequency of Treatment 2x/Week Duration of Treatment 2 months Plan of Care Start Date 03/14/29 Plan of Care End Date 05/14/19 Next Visit Focus/Plan Next Note Type Treatment Note Next Visit Plan Advance ROM as tolerated & scapular stability; KT tape
--- NOTE | 2019-04-06 09:50 | PT.OTN ---
Current Diagnoses Incomplete rotator cuff tear or rupture of right shoulder, not specified as traumatic (04/06/19) Physical Therapy Treatment Note PT-OP-A Visit Information Start: 03/13/19 17:35 Freq: Status: Active Protocol: Document 04/06/19 09:04 [facility] (Rec: 04/06/19 09:46 [facility] [id number]) Out-Patient Physical Therapy Visit Information Visit Information Visit Type Treatment Note Visit Start Time 09:00 Visit Stop Time 09:50 Total Visit Minutes 50 Visit Number 5/10 Number of AN/SQQ 89(V)15 SONAR SYSTEM JOURNEYMAN Visits 0 PT-OP-B Current Condition Start: 03/13/19 17:35 Freq: Status: Active Protocol: Document 03/14/19 08:10 [facility] (Rec: 03/14/19 09:10 [facility] [id number]) Current Condition History of Current Condition Onset Date 6 weeks ago flare up Current Complaints R shoulder pain History of Current Condition Pt reports a few years ago, she was decorating the [employer] tree and reached up high and it felt like someone stabbed a dagger into her shoulder then saw the MD and got a MRI which showed a small tear in the rotator cuff and a small bone spur and torn biceps. Pt reports she has had 4 instances since then that have set it off. Pt reports when it does it then it sets her back several weeks. There is no specific movement that seems to flare it up. Reports she was travelling this time and her ROM as very limited for reaching out and up and still is. Pt stopped doing her upper body exercises when this initially happened d/t being concerned to hurt it more. Prior Treatments and Tests MRI years ago Future Testing and Treatments Planned Follow up with ortho Treatment Goals Patient/Caregiver Goals Start PT before seeing ortho; make her shoulder managable, livable and reliable. PT-OP-C Subjective Start: 03/13/19 17:35 Freq: Status: Active Protocol: Document 04/06/19 09:04 [facility] (Rec: 04/06/19 09:46 [facility] [id number]) OP-PT Subjective Patient Comments Patient Comments Pt reports pain comes and goes with random activities. Reports this AM was doing well until just now reaching across body for toilet paper. PT-OP-J Posture/Palpation/Skin Start: 03/13/19 17:35 Freq: Status: Active Protocol: Document 03/14/19 08:10 [facility] (Rec: 03/14/19 09:10 [facility] [id number]) Posture Evaluation Eddie Postural Classification System [facility] Postural Classifications Vertical/Posterior Comments Posture Comments inc kyphosis & fwd head & shoulders PT-OP-K Range of Motion Start: 03/13/19 17:35 Freq: Status: Active Protocol: Document 03/14/19 08:10 [facility] (Rec: 03/14/19 09:10 [facility] [id number]) Shoulder Goniometric Range of Motion Shoulder Measured in Degrees Right Passive Testing Position Supine Flexion 140 Abduction 114 External Rotation at 90 degrees 78 Abduction Internal Rotation 38 Left Active Testing Position Standing Flexion 168 Extension 71 Abduction 160 External Rotation at 90 degrees 85 Abduction External Rotation at 0 degrees Abduction 78 Internal Rotation 80 Internal Rotation Behind Back (text) T6 Right Active Testing Position Standing Flexion 88 Extension 40 Abduction 93 External Rotation at 0 degrees Abduction 50 Internal Rotation Behind Back (text) sacrum PT-OP-L Special Tests Start: 03/13/19 17:35 Freq: Status: Active Protocol: Document 03/14/19 08:10 [facility] (Rec: 03/14/19 09:10 [facility] [id number]) Special Tests Shoulder Special Tests speeds Test Results positive yergesons Test Results negative Barbosa Agustin Impingement Test Results positive Neer Impingement Test Results positive Empty Can Test Results positive PT-OP-M Strength Start: 03/13/19 17:35 Freq: Status: Active Protocol: Document 03/14/19 08:10 [facility] (Rec: 03/14/19 09:10 [facility] [id number]) Shoulder Strength Shoulder Manual Muscle Testing Right Flexion 3- Fair- Extension 4- Good- Abduction (C5) 3- Fair- External Rotation 4- Good- Internal Rotation 4 Good Left Flexion 4- Good- Extension 4+ Good+ Abduction (C5) 4- Good- External Rotation 5 Normal Internal Rotation 5 Normal PT-OP-Q Treatments Start: 03/13/19 17:35 Freq: Status: Active Protocol: Document 04/06/19 09:04 [facility] (Rec: 04/06/19 09:46 [facility] [id number]) Cardio Equipment Upper Body Ergometer (UBE) Duration (Minutes) 6 RPM 60 Seat Position 9 Height 4 Other fwd/back Therapeutic Exercises Standing Exercises ER Standing Exercise Name B ER Side bilateral Equipment Used lvl 1 Reps/Minutes 20 IR Side right Equipment Used lvl 1 Reps/Minutes 15 pully Standing Exercise Name flex, abd, IR Reps/Minutes 20 Comments flex & abd seated shoulder ext Standing Exercise Name ext Side bilateral Equipment Used L1 Reps/Minutes 20 Manual Therapy Treatment Soft Tissue Mobilization pec Body Location Pec Mobilization Type Strumming Intensity/Depth Moderate Joint Mobilizations GH Joint GH Direction post glide & translation Taping KT Body Location R shoulder Treatment Focus for improved scapular mechanics Comments deltoid & supraspinatus Y; y strip over AC for stability PT-OP-R Modalities Start: 03/13/19 17:35 Freq: Status: Active Protocol: Document 04/06/19 09:04 [facility] (Rec: 04/06/19 09:46 [facility] [id number]) Hot Pack/Cold Pack Treatment Cold Pack Location R shoulder Patient Position Supine Treatment Duration (minutes) 10 PT-OP-T Assessment and Plan Start: 03/13/19 17:35 Freq: Status: Active Protocol: Document 04/06/19 09:04 [facility] (Rec: 04/06/19 09:46 [facility] [id number]) Physical Therapy Assessment Goals DASH [facility] Goal (LTG) DASH score to less than 8 to show improved functional ability LTG Duration 05/14/19 ROM Short Term Goal (STG) Pt will have full PROM to allow improvement in motion. STG Duration 04/13/29 [facility] Goal (LTG) Pt will have R full AROM as compared to L side to allow greater ease with ADLs. LTG Duration 05/14/19 strength Short Term Goal (STG) Pt will be indep with HEP STG Duration 04/13/19 It Operations Specialist Goal (LTG) Pt will have 5/5 in B UE allowing return to typical activities without pain. LTG Duration 05/14/19 Assessment Summary Assessment Pt cont to improve with ROM but has cont difficulty with against gravity ROM. She requires cueing for posture Physical Therapy Plan Frequency and Duration Frequency of Treatment 2x/Week Duration of Treatment 2 months Plan of Care Start Date 03/14/29 Plan of Care End Date 05/14/19 Next Visit Focus/Plan Next Note Type Treatment Note Next Visit Plan Advance ROM as tolerated & scapular stability; asess tolerance to KT tape
--- NOTE | 2019-04-10 11:15 | PT.OTN ---
Current Diagnoses Incomplete rotator cuff tear or rupture of right shoulder, not specified as traumatic (04/10/19) Physical Therapy Treatment Note PT-OP-A Visit Information Start: 03/13/19 17:35 Freq: Status: Active Protocol: Document 04/10/19 10:40 [facility] (Rec: 04/10/19 11:15 [facility] [id number]) Out-Patient Physical Therapy Visit Information Visit Information Visit Type Treatment Note Visit Start Time 10:35 Visit Stop Time 11:25 Total Visit Minutes 50 Visit Number 05/01 Number of MOLD PRESSER Visits 0 PT-OP-B Current Condition Start: 03/13/19 17:35 Freq: Status: Active Protocol: Document 03/14/19 08:10 [facility] (Rec: 03/14/19 09:10 [facility] [id number]) Current Condition History of Current Condition Onset Date 6 weeks ago flare up Current Complaints R shoulder pain History of Current Condition Pt reports a few years ago, she was decorating the [employer] tree and reached up high and it felt like someone stabbed a dagger into her shoulder then saw the MD and got a MRI which showed a small tear in the rotator cuff and a small bone spur and torn biceps. Pt reports she has had 4 instances since then that have set it off. Pt reports when it does it then it sets her back several weeks. There is no specific movement that seems to flare it up. Reports she was travelling this time and her ROM as very limited for reaching out and up and still is. Pt stopped doing her upper body exercises when this initially happened d/t being concerned to hurt it more. Prior Treatments and Tests MRI years ago Future Testing and Treatments Planned Follow up with ortho Treatment Goals Patient/Caregiver Goals Start PT before seeing ortho; make her shoulder managable, livable and reliable. PT-OP-C Subjective Start: 03/13/19 17:35 Freq: Status: Active Protocol: Document 04/10/19 10:40 [facility] (Rec: 04/10/19 11:15 [facility] [id number]) OP-PT Subjective Patient Comments Patient Comments Pt reports tape helped. She has had some pains but none this AM so far. Patient Reported Progress Improving PT-OP-J Posture/Palpation/Skin Start: 03/13/19 17:35 Freq: Status: Active Protocol: Document 03/14/19 08:10 [facility] (Rec: 03/14/19 09:10 [facility] [id number]) Posture Evaluation [facility] Postural Classification System [facility] Postural Classifications Vertical/Posterior Comments Posture Comments inc kyphosis & fwd head & shoulders PT-OP-K Range of Motion Start: 03/13/19 17:35 Freq: Status: Active Protocol: Document 03/14/19 08:10 [facility] (Rec: 03/14/19 09:10 [facility] [id number]) Shoulder Goniometric Range of Motion Shoulder Measured in Degrees Right Passive Testing Position Supine Flexion 140 Abduction 114 External Rotation at 90 degrees 78 Abduction Internal Rotation 38 Left Active Testing Position Standing Flexion 168 Extension 71 Abduction 160 External Rotation at 90 degrees 85 Abduction External Rotation at 0 degrees Abduction 78 Internal Rotation 80 Internal Rotation Behind Back (text) T6 Right Active Testing Position Standing Flexion 88 Extension 40 Abduction 93 External Rotation at 0 degrees Abduction 50 Internal Rotation Behind Back (text) sacrum PT-OP-L Special Tests Start: 03/13/19 17:35 Freq: Status: Active Protocol: Document 03/14/19 08:10 [facility] (Rec: 03/14/19 09:10 [facility] [id number]) Special Tests Shoulder Special Tests speeds Test Results positive yergesons Test Results negative Barbosa Agustin Impingement Test Results positive Neer Impingement Test Results positive Empty Can Test Results positive PT-OP-M Strength Start: 03/13/19 17:35 Freq: Status: Active Protocol: Document 03/14/19 08:10 [facility] (Rec: 03/14/19 09:10 [facility] [id number]) Shoulder Strength Shoulder Manual Muscle Testing Right Flexion 3- Fair- Extension 4- Good- Abduction (C5) 3- Fair- External Rotation 4- Good- Internal Rotation 4 Good Left Flexion 4- Good- Extension 4+ Good+ Abduction (C5) 4- Good- External Rotation 5 Normal Internal Rotation 5 Normal PT-OP-Q Treatments Start: 03/13/19 17:35 Freq: Status: Active Protocol: Document 04/10/19 10:40 [facility] (Rec: 04/10/19 11:15 [facility] [id number]) Cardio Equipment Upper Body Ergometer (UBE) Duration (Minutes) 6 RPM 60 Seat Position 9 Height 4 Other fwd/back Therapeutic Exercises Sidelying Exercises abd Sidelying Exercise Name to 90 Side right Reps/Minutes 20 Standing Exercises breathing Standing Exercise Name diaphragmatic Reps/Minutes 20 Comments in mirror flex Standing Exercise Name tbar press up, then flex Reps/Minutes 15 ea Comments in mirror ER Standing Exercise Name B ER Side bilateral Equipment Used lvl 1 Reps/Minutes 20 IR Side right Equipment Used lvl 1 Reps/Minutes 20 shoulder ext Standing Exercise Name ext Side bilateral Equipment Used L1 Reps/Minutes 15 Manual Therapy Treatment Joint Mobilizations GH Joint GH Direction post glide & translation& inf Taping KT Body Location R shoulder Treatment Focus for improved scapular mechanics Comments deltoid & supraspinatus Y; y strip over AC for stability PT-OP-R Modalities Start: 03/13/19 17:35 Freq: Status: Active Protocol: Document 04/10/19 10:40 [facility] (Rec: 04/10/19 11:15 [facility] [id number]) Hot Pack/Cold Pack Treatment Cold Pack Location R shoulder Patient Position Supine Treatment Duration (minutes) 10 PT-OP-T Assessment and Plan Start: 03/13/19 17:35 Freq: Status: Active Protocol: Document 04/10/19 10:40 [facility] (Rec: 04/10/19 11:15 [facility] [id number]) Physical Therapy Assessment Goals DASH Museum Curator Goal (LTG) DASH score to less than 8 to show improved functional ability LTG Duration 05/14/19 ROM Short Term Goal (STG) Pt will have full PROM to allow improvement in motion. STG Duration 04/13/29 Museum Curator Goal (LTG) Pt will have R full AROM as compared to L side to allow greater ease with ADLs. LTG Duration 05/14/19 strength Short Term Goal (STG) Pt will be indep with HEP STG Duration 04/13/19 Museum Curator Goal (LTG) Pt will have 5/5 in B UE allowing return to typical activities without pain. LTG Duration 05/14/19 Assessment Summary Assessment No c/o pain with new exercises . Cont edu to not use neck wjith breathing & UE motions. She had full 90/90 IR after mobs. Physical Therapy Plan Frequency and Duration Frequency of Treatment 2x/Week Duration of Treatment 2 months Plan of Care Start Date 03/14/29 Plan of Care End Date 05/14/19 Next Visit Focus/Plan Next Note Type Treatment Note Next Visit Plan cont to advance scap stability
--- NOTE | 2019-04-12 16:00 | PT.OTN ---
Current Diagnoses Incomplete rotator cuff tear or rupture of right shoulder, not specified as traumatic (04/12/19) Physical Therapy Treatment Note PT-OP-A Visit Information Start: 03/13/19 17:35 Freq: Status: Active Protocol: Document 04/12/19 15:24 [facility] (Rec: 04/12/19 16:00 [facility] [id number]) Out-Patient Physical Therapy Visit Information Visit Information Visit Type Treatment Note Visit Start Time 15:15 Visit Stop Time 16:05 Total Visit Minutes 50 Visit Number 05/31 Number of TWIST MAKER Visits 0 PT-OP-B Current Condition Start: 03/13/19 17:35 Freq: Status: Active Protocol: Document 03/14/19 08:10 [facility] (Rec: 03/14/19 09:10 [facility] [id number]) Current Condition History of Current Condition Onset Date 6 weeks ago flare up Current Complaints R shoulder pain History of Current Condition Pt reports a few years ago, she was decorating the [employer] tree and reached up high and it felt like someone stabbed a dagger into her shoulder then saw the MD and got a MRI which showed a small tear in the rotator cuff and a small bone spur and torn biceps. Pt reports she has had 4 instances since then that have set it off. Pt reports when it does it then it sets her back several weeks. There is no specific movement that seems to flare it up. Reports she was travelling this time and her ROM as very limited for reaching out and up and still is. Pt stopped doing her upper body exercises when this initially happened d/t being concerned to hurt it more. Prior Treatments and Tests MRI years ago Future Testing and Treatments Planned Follow up with ortho Treatment Goals Patient/Caregiver Goals Start PT before seeing ortho; make her shoulder managable, livable and reliable. PT-OP-C Subjective Start: 03/13/19 17:35 Freq: Status: Active Protocol: Document 04/12/19 15:24 [facility] (Rec: 04/12/19 16:00 [facility] [id number]) OP-PT Subjective Patient Comments Patient Comments Pt reports she was doing gardening and had several instances of pain when reaching & digging up PT-OP-J Posture/Palpation/Skin Start: 03/13/19 17:35 Freq: Status: Active Protocol: Document 03/14/19 08:10 [facility] (Rec: 03/14/19 09:10 [facility] [id number]) Posture Evaluation [facility] Postural Classification System [facility] Postural Classifications Vertical/Posterior Comments Posture Comments inc kyphosis & fwd head & shoulders PT-OP-K Range of Motion Start: 03/13/19 17:35 Freq: Status: Active Protocol: Document 03/14/19 08:10 [facility] (Rec: 03/14/19 09:10 [facility] [id number]) Shoulder Goniometric Range of Motion Shoulder Measured in Degrees Right Passive Testing Position Supine Flexion 140 Abduction 114 External Rotation at 90 degrees 78 Abduction Internal Rotation 38 Left Active Testing Position Standing Flexion 168 Extension 71 Abduction 160 External Rotation at 90 degrees 85 Abduction External Rotation at 0 degrees Abduction 78 Internal Rotation 80 Internal Rotation Behind Back (text) T6 Right Active Testing Position Standing Flexion 88 Extension 40 Abduction 93 External Rotation at 0 degrees Abduction 50 Internal Rotation Behind Back (text) sacrum PT-OP-L Special Tests Start: 03/13/19 17:35 Freq: Status: Active Protocol: Document 03/14/19 08:10 [facility] (Rec: 03/14/19 09:10 [facility] [id number]) Special Tests Shoulder Special Tests speeds Test Results positive yergesons Test Results negative Barbosa Agustin Impingement Test Results positive Neer Impingement Test Results positive Empty Can Test Results positive PT-OP-M Strength Start: 03/13/19 17:35 Freq: Status: Active Protocol: Document 03/14/19 08:10 [facility] (Rec: 03/14/19 09:10 [facility] [id number]) Shoulder Strength Shoulder Manual Muscle Testing Right Flexion 3- Fair- Extension 4- Good- Abduction (C5) 3- Fair- External Rotation 4- Good- Internal Rotation 4 Good Left Flexion 4- Good- Extension 4+ Good+ Abduction (C5) 4- Good- External Rotation 5 Normal Internal Rotation 5 Normal PT-OP-Q Treatments Start: 03/13/19 17:35 Freq: Status: Active Protocol: Document 04/12/19 15:24 [facility] (Rec: 04/12/19 16:00 [facility] [id number]) Cardio Equipment Upper Body Ergometer (UBE) Duration (Minutes) 6 RPM 60 Seat Position 9 Height 4.5 Other fwd/back Therapeutic Exercises Supine Exercises serratus punch Supine Exercise Name punch Side right Equipment Used 1# Reps/Minutes 20 Prone Exercises scaption Prone Exercise Name over tball Side bilateral Reps/Minutes 2x10 Comments comfortable range HAbd Prone Exercise Name over tball Side bilateral Reps/Minutes 15 Standing Exercises ball Standing Exercise Name ABC at wall Reps/Minutes 1x flex Standing Exercise Name tbar press up, then flex Reps/Minutes 15 ea Comments in mirror Manual Therapy Treatment Soft Tissue Mobilization pec Body Location Pec Mobilization Type Strumming Intensity/Depth Moderate UT Body Location UT Mobilization Type Rolling Intensity/Depth Moderate Joint Mobilizations AC Joint AC Direction ventral GH Joint GH Direction post glide & translation& inf PT-OP-R Modalities Start: 03/13/19 17:35 Freq: Status: Active Protocol: Document 04/12/19 15:24 [facility] (Rec: 04/12/19 16:00 [facility] [id number]) Hot Pack/Cold Pack Treatment Cold Pack Location R shoulder Patient Position Supine Treatment Duration (minutes) 10 PT-OP-T Assessment and Plan Start: 03/13/19 17:35 Freq: Status: Active Protocol: Document 04/12/19 15:24 [facility] (Rec: 04/12/19 16:00 [facility] [id number]) Physical Therapy Assessment Goals DASH [facility] Goal (LTG) DASH score to less than 8 to show improved functional ability LTG Duration 05/14/19 ROM Short Term Goal (STG) Pt will have full PROM to allow improvement in motion. STG Duration 04/13/29 Jail Goal (LTG) Pt will have R full AROM as compared to L side to allow greater ease with ADLs. LTG Duration 05/14/19 strength Short Term Goal (STG) Pt will be indep with HEP STG Duration 04/13/19 Jail Goal (LTG) Pt will have 5/5 in B UE allowing return to typical activities without pain. LTG Duration 05/14/19 Assessment Summary Assessment Pt able to tolerate progression with strengthening today but does require ceuing for posture and scapular positioning. Physical Therapy Plan Frequency and Duration Frequency of Treatment 2x/Week Duration of Treatment 2 months Plan of Care Start Date 03/14/29 Plan of Care End Date 05/14/19 Next Visit Focus/Plan Next Note Type Treatment Note Next Visit Plan cont to advance scap stability & overhead motion
--- NOTE | 2019-04-19 14:27 | PT.OTN ---
Current Diagnoses Incomplete rotator cuff tear or rupture of right shoulder, not specified as traumatic (04/19/19) Physical Therapy Treatment Note PT-OP-A Visit Information Start: 03/13/19 17:35 Freq: Status: Active Protocol: Document 04/19/19 13:50 [facility] (Rec: 04/19/19 14:27 [facility] [id number]) Out-Patient Physical Therapy Visit Information Visit Information Visit Type Treatment Note Visit Start Time 13:45 Visit Stop Time 14:35 Total Visit Minutes 50 Visit Number 8/10 Number of STEAMER OPERATOR Visits 0 PT-OP-B Current Condition Start: 03/13/19 17:35 Freq: Status: Active Protocol: Document 03/14/19 08:10 [facility] (Rec: 03/14/19 09:10 [facility] [id number]) Current Condition History of Current Condition Onset Date 6 weeks ago flare up Current Complaints R shoulder pain History of Current Condition Pt reports a few years ago, she was decorating the [employer] tree and reached up high and it felt like someone stabbed a dagger into her shoulder then saw the MD and got a MRI which showed a small tear in the rotator cuff and a small bone spur and torn biceps. Pt reports she has had 4 instances since then that have set it off. Pt reports when it does it then it sets her back several weeks. There is no specific movement that seems to flare it up. Reports she was travelling this time and her ROM as very limited for reaching out and up and still is. Pt stopped doing her upper body exercises when this initially happened d/t being concerned to hurt it more. Prior Treatments and Tests MRI years ago Future Testing and Treatments Planned Follow up with ortho Treatment Goals Patient/Caregiver Goals Start PT before seeing ortho; make her shoulder managable, livable and reliable. PT-OP-C Subjective Start: 03/13/19 17:35 Freq: Status: Active Protocol: Document 04/19/19 13:50 [facility] (Rec: 04/19/19 14:27 [facility] [id number]) OP-PT Subjective Patient Comments Patient Comments Reports she has been sporadic with exercises. Pt reports yesterday she woke up with her neck sore and did her exercises and that helped. PT-OP-J Posture/Palpation/Skin Start: 03/13/19 17:35 Freq: Status: Active Protocol: Document 03/14/19 08:10 [facility] (Rec: 03/14/19 09:10 [facility] [id number]) Posture Evaluation Eddie Postural Classification System Eddie Postural Classifications Vertical/Posterior Comments Posture Comments inc kyphosis & fwd head & shoulders PT-OP-K Range of Motion Start: 03/13/19 17:35 Freq: Status: Active Protocol: Document 03/14/19 08:10 [facility] (Rec: 03/14/19 09:10 [facility] [id number]) Shoulder Goniometric Range of Motion Shoulder Measured in Degrees Right Passive Testing Position Supine Flexion 140 Abduction 114 External Rotation at 90 degrees 78 Abduction Internal Rotation 38 Left Active Testing Position Standing Flexion 168 Extension 71 Abduction 160 External Rotation at 90 degrees 85 Abduction External Rotation at 0 degrees Abduction 78 Internal Rotation 80 Internal Rotation Behind Back (text) T6 Right Active Testing Position Standing Flexion 88 Extension 40 Abduction 93 External Rotation at 0 degrees Abduction 50 Internal Rotation Behind Back (text) sacrum PT-OP-L Special Tests Start: 03/13/19 17:35 Freq: Status: Active Protocol: Document 03/14/19 08:10 [facility] (Rec: 03/14/19 09:10 [facility] [id number]) Special Tests Shoulder Special Tests speeds Test Results positive yergesons Test Results negative Barbosa Agustin Impingement Test Results positive Neer Impingement Test Results positive Empty Can Test Results positive PT-OP-M Strength Start: 03/13/19 17:35 Freq: Status: Active Protocol: Document 03/14/19 08:10 [facility] (Rec: 03/14/19 09:10 [facility] [id number]) Shoulder Strength Shoulder Manual Muscle Testing Right Flexion 3- Fair- Extension 4- Good- Abduction (C5) 3- Fair- External Rotation 4- Good- Internal Rotation 4 Good Left Flexion 4- Good- Extension 4+ Good+ Abduction (C5) 4- Good- External Rotation 5 Normal Internal Rotation 5 Normal PT-OP-Q Treatments Start: 03/13/19 17:35 Freq: Status: Active Protocol: Document 04/19/19 13:50 [facility] (Rec: 04/19/19 14:27 [facility] [id number]) Cardio Equipment Upper Body Ergometer (UBE) Duration (Minutes) 6 RPM 60 Seat Position 9 Height 4.5 Other fwd/back Therapeutic Exercises Supine Exercises serratus punch Supine Exercise Name punch Side right Equipment Used 2# Reps/Minutes 20 Prone Exercises scaption Prone Exercise Name over tball Side bilateral Reps/Minutes 15 Comments comfortable range HAbd Prone Exercise Name over tball Side bilateral Equipment Used 1# Reps/Minutes 15 Sidelying Exercises ER Sidelying Exercise Name ER Side right Equipment Used 2# Reps/Minutes 15 abd Sidelying Exercise Name to 90 Side right Equipment Used 1#; 2# Reps/Minutes 15x2 Standing Exercises flex Standing Exercise Name tbar press up, then flex Reps/Minutes 15 ea Comments in mirror Manual Therapy Treatment Soft Tissue Mobilization pec Body Location Pec Mobilization Type Strumming Intensity/Depth Moderate Joint Mobilizations GH Joint GH Direction post glide & translation& inf & distaction PT-OP-R Modalities Start: 03/13/19 17:35 Freq: Status: Active Protocol: Document 04/19/19 13:50 [facility] (Rec: 04/19/19 14:27 [facility] [id number]) Hot Pack/Cold Pack Treatment Cold Pack Location R shoulder Patient Position Supine Treatment Duration (minutes) 10 PT-OP-T Assessment and Plan Start: 03/13/19 17:35 Freq: Status: Active Protocol: Document 04/19/19 13:50 [facility] (Rec: 04/19/19 14:27 [facility] [id number]) Physical Therapy Assessment Goals DASH Veterinarian Helper Goal (LTG) DASH score to less than 8 to show improved functional ability LTG Duration 05/14/19 ROM Short Term Goal (STG) Pt will have full PROM to allow improvement in motion. STG Duration 04/13/29 Prison Goal (LTG) Pt will have R full AROM as compared to L side to allow greater ease with ADLs. LTG Duration 05/14/19 strength Short Term Goal (STG) Pt will be indep with HEP STG Duration 04/13/19 Prison Goal (LTG) Pt will have 5/5 in B UE allowing return to typical activities without pain. LTG Duration 05/14/19 Assessment Summary Assessment Improved soft tissue mobility of pec and UT today. Improved PROM to full without c/o pain. She is improving in tolerance to strengthening exercises. Physical Therapy Plan Frequency and Duration Frequency of Treatment 2x/Week Duration of Treatment 2 months Plan of Care Start Date 03/14/29 Plan of Care End Date 05/14/19 Next Visit Focus/Plan Next Note Type Treatment Note Next Visit Plan cont to advance scap stability & overhead motion
--- NOTE | 2019-04-27 11:18 | PT.OTN ---
Current Diagnoses Incomplete rotator cuff tear or rupture of right shoulder, not specified as traumatic (04/27/19) Physical Therapy Treatment Note PT-OP-A Visit Information Start: 03/13/19 17:35 Freq: Status: Active Protocol: Document 04/27/19 10:35 [facility] (Rec: 04/27/19 11:18 [facility] [id number]) Out-Patient Physical Therapy Visit Information Visit Information Visit Type Treatment Note Visit Start Time 10:37 Visit Stop Time 11:25 Total Visit Minutes 48 Visit Number 08/01 Number of ARMORED CAR GUARD AND DRIVER Visits 0 PT-OP-B Current Condition Start: 03/13/19 17:35 Freq: Status: Active Protocol: Document 03/14/19 08:10 [facility] (Rec: 03/14/19 09:10 [facility] [id number]) Current Condition History of Current Condition Onset Date 6 weeks ago flare up Current Complaints R shoulder pain History of Current Condition Pt reports a few years ago, she was decorating the [employer] tree and reached up high and it felt like someone stabbed a dagger into her shoulder then saw the MD and got a MRI which showed a small tear in the rotator cuff and a small bone spur and torn biceps. Pt reports she has had 4 instances since then that have set it off. Pt reports when it does it then it sets her back several weeks. There is no specific movement that seems to flare it up. Reports she was travelling this time and her ROM as very limited for reaching out and up and still is. Pt stopped doing her upper body exercises when this initially happened d/t being concerned to hurt it more. Prior Treatments and Tests MRI years ago Future Testing and Treatments Planned Follow up with ortho Treatment Goals Patient/Caregiver Goals Start PT before seeing ortho; make her shoulder managable, livable and reliable. PT-OP-C Subjective Start: 03/13/19 17:35 Freq: Status: Active Protocol: Document 04/27/19 10:35 [facility] (Rec: 04/27/19 11:18 [facility] [id number]) OP-PT Subjective Patient Comments Patient Comments Pt reports she feels like her shoulder is doing better and she is working on her mechanics. Patient Reported Progress Improving PT-OP-J Posture/Palpation/Skin Start: 03/13/19 17:35 Freq: Status: Active Protocol: Document 03/14/19 08:10 [facility] (Rec: 03/14/19 09:10 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 (Rec: 03/14/19 09:10 [facility] [id number]) Shoulder Goniometric Range of Motion Shoulder Measured in Degrees Right Passive Testing Position Supine Flexion 140 Abduction 114 External Rotation at 90 degrees 78 Abduction Internal Rotation 38 Left Active Testing Position Standing Flexion 168 Extension 71 Abduction 160 External Rotation at 90 degrees 85 Abduction External Rotation at 0 degrees Abduction 78 Internal Rotation 80 Internal Rotation Behind Back (text) T6 Right Active Testing Position Standing Flexion 88 Extension 40 Abduction 93 External Rotation at 0 degrees Abduction 50 Internal Rotation Behind Back (text) sacrum PT-OP-L Special Tests Start: 03/13/19 17:35 Freq: Status: Active Protocol: Document 03/14/19 08:10 [facility] (Rec: 03/14/19 09:10 [facility] [id number]) Special Tests Shoulder Special Tests speeds Test Results positive yergesons Test Results negative Barbosa Agustin Impingement Test Results positive Neer Impingement Test Results positive Empty Can Test Results positive PT-OP-M Strength Start: 03/13/19 17:35 Freq: Status: Active Protocol: Document 03/14/19 08:10 [facility] (Rec: 03/14/19 09:10 [facility] [id number]) Shoulder Strength Shoulder Manual Muscle Testing Right Flexion 3- Fair- Extension 4- Good- Abduction (C5) 3- Fair- External Rotation 4- Good- Internal Rotation 4 Good Left Flexion 4- Good- Extension 4+ Good+ Abduction (C5) 4- Good- External Rotation 5 Normal Internal Rotation 5 Normal PT-OP-Q Treatments Start: 03/13/19 17:35 Freq: Status: Active Protocol: Document 04/27/19 10:35 [facility] (Rec: 04/27/19 11:18 [facility] [id number]) Cardio Equipment Upper Body Ergometer (UBE) Duration (Minutes) 6 RPM 60 Seat Position 9 Height 4.5 Other fwd/back Therapeutic Exercises Supine Exercises flexion Supine Exercise Name AROM Side right Equipment Used 0#, 1# Reps/Minutes 15x2 Prone Exercises scaption Prone Exercise Name over tball Side bilateral Reps/Minutes 15 Comments comfortable range HAbd Prone Exercise Name over tball Side bilateral Equipment Used 1#, 2# Reps/Minutes 2x10 Sidelying Exercises abd Sidelying Exercise Name to 90 Side right Equipment Used 2# Reps/Minutes 15x2 Standing Exercises pully Standing Exercise Name flex Reps/Minutes 15 Manual Therapy Treatment Soft Tissue Mobilization pec Body Location Pec Mobilization Type Strumming Intensity/Depth Moderate UT Body Location UT Mobilization Type Rolling Intensity/Depth Moderate Joint Mobilizations GH Joint GH Direction post glide & translation& inf & distaction PT-OP-R Modalities Start: 03/13/19 17:35 Freq: Status: Active Protocol: Document 04/27/19 10:35 [facility] (Rec: 04/27/19 11:18 [facility] [id number]) Hot Pack/Cold Pack Treatment Cold Pack Location R shoulder Patient Position Supine Treatment Duration (minutes) 10 PT-OP-T Assessment and Plan Start: 03/13/19 17:35 Freq: Status: Active Protocol: Document 04/27/19 10:35 [facility] (Rec: 04/27/19 11:18 [facility] [id number]) Physical Therapy Assessment Goals DASH Residential Goal (LTG) DASH score to less than 8 to show improved functional ability LTG Duration 05/14/19 ROM Short Term Goal (STG) Pt will have full PROM to allow improvement in motion. STG Duration 04/13/29 Residential Goal (LTG) Pt will have R full AROM as compared to L side to allow greater ease with ADLs. LTG Duration 05/14/19 strength Short Term Goal (STG) Pt will be indep with HEP STG Duration 04/13/19 Production Control Technologist Goal (LTG) Pt will have 5/5 in B UE allowing return to typical activities without pain. LTG Duration 05/14/19 Assessment Summary Assessment Pt was able to tolerate inc resistance and had signifcantly improved scaculohumeral mechanics today . She has difficulty with going into pure flex and IR. Physical Therapy Plan Frequency and Duration Frequency of Treatment 2x/Week Duration of Treatment 2 months Plan of Care Start Date 03/14/29 Plan of Care End Date 05/14/19 Next Visit Focus/Plan Next Note Type Treatment Note Next Visit Plan cont to advance scap stability & overhead motion
--- NOTE | 2019-05-01 12:07 | PT.OTN ---
Current Diagnoses Incomplete rotator cuff tear or rupture of right shoulder, not specified as traumatic (05/01/19) Physical Therapy Treatment Note PT-OP-A Visit Information Start: 03/13/19 17:35 Freq: Status: Active Protocol: Document 05/01/19 11:28 [facility] (Rec: 05/01/19 12:03 [facility] [id number]) Out-Patient Physical Therapy Visit Information Visit Information Visit Type Progress Note Visit Note 10 total visits Visit Start Time 11:15 Visit Stop Time 12:05 Total Visit Minutes 50 Visit Number 12/01 Number of DIAMOND EXPERT Visits 0 PT-OP-B Current Condition Start: 03/13/19 17:35 Freq: Status: Active Protocol: Document 03/14/19 08:10 [facility] (Rec: 03/14/19 09:10 [facility] [id number]) Current Condition History of Current Condition Onset Date 6 weeks ago flare up Current Complaints R shoulder pain History of Current Condition Pt reports a few years ago, she was decorating the [employer] tree and reached up high and it felt like someone stabbed a dagger into her shoulder then saw the MD and got a MRI which showed a small tear in the rotator cuff and a small bone spur and torn biceps. Pt reports she has had 4 instances since then that have set it off. Pt reports when it does it then it sets her back several weeks. There is no specific movement that seems to flare it up. Reports she was travelling this time and her ROM as very limited for reaching out and up and still is. Pt stopped doing her upper body exercises when this initially happened d/t being concerned to hurt it more. Prior Treatments and Tests MRI years ago Future Testing and Treatments Planned Follow up with ortho Treatment Goals Patient/Caregiver Goals Start PT before seeing ortho; make her shoulder managable, livable and reliable. PT-OP-C Subjective Start: 03/13/19 17:35 Freq: Status: Active Protocol: Document 05/01/19 11:28 [facility] (Rec: 05/01/19 12:06 [facility] [id number]) OP-PT Subjective Patient Comments Patient Comments Pt reports she gardened all weekend but didn't get to exercises Patient Reported Progress Improving PT-OP-J Posture/Palpation/Skin Start: 03/13/19 17:35 Freq: Status: Active Protocol: Document 03/14/19 08:10 [facility] (Rec: 03/14/19 09:10 [facility] [id number]) Posture Evaluation [facility] Postural Classification System [facility] Postural Classifications Vertical/Posterior Comments Posture Comments inc kyphosis & fwd head & shoulders PT-OP-K Range of Motion Start: 03/13/19 17:35 Freq: Status: Active Protocol: Document 05/01/19 11:28 [facility] (Rec: 05/01/19 12:03 [facility] [id number]) Shoulder Goniometric Range of Motion Shoulder Measured in Degrees Right Active Flexion 160 Extension 72 Abduction 171 External Rotation at 90 degrees 100 Abduction Internal Rotation 56 Internal Rotation Behind Back (text) T10 PT-OP-L Special Tests Start: 03/13/19 17:35 Freq: Status: Active Protocol: Document 03/14/19 08:10 [facility] (Rec: 03/14/19 09:10 [facility] [id number]) Special Tests Shoulder Special Tests speeds Test Results positive yergesons Test Results negative Barbosa Agustin Impingement Test Results positive Neer Impingement Test Results positive Empty Can Test Results positive PT-OP-M Strength Start: 03/13/19 17:35 Freq: Status: Active Protocol: Document 05/01/19 11:28 [facility] (Rec: 05/01/19 12:03 [facility] [id number]) Shoulder Strength Shoulder Manual Muscle Testing Right Flexion 4 Good Extension 5 Normal Abduction (C5) 4 Good External Rotation 4 Good Internal Rotation 5 Normal Left Flexion 5 Normal Extension 5 Normal Abduction (C5) 5 Normal External Rotation 5 Normal Internal Rotation 5 Normal PT-OP-Q Treatments Start: 03/13/19 17:35 Freq: Status: Active Protocol: Document 05/01/19 11:28 [facility] (Rec: 05/01/19 12:03 [facility] [id number]) Therapeutic Exercises Standing Exercises abd Standing Exercise Name abd Side left Equipment Used L1 Reps/Minutes 20 flex Standing Exercise Name flex Side bilateral Equipment Used L2 Reps/Minutes 15 ER Standing Exercise Name B ER Side bilateral Equipment Used lvl 2 Reps/Minutes 20 Manual Therapy Treatment Soft Tissue Mobilization pec Body Location Pec Mobilization Type Strumming Intensity/Depth Moderate Joint Mobilizations 1st rib Joint 1st & 2nd Direction AP FM PT-OP-R Modalities Start: 03/13/19 17:35 Freq: Status: Active Protocol: Document 05/01/19 11:28 [facility] (Rec: 05/01/19 12:03 [facility] [id number]) Hot Pack/Cold Pack Treatment Cold Pack Location R shoulder Patient Position Supine Treatment Duration (minutes) 10 PT-OP-T Assessment and Plan Start: 03/13/19 17:35 Freq: Status: Active Protocol: Document 05/01/19 11:28 [facility] (Rec: 05/01/19 12:03 [facility] [id number]) Physical Therapy Assessment Goals DASH Burglar Alarm Operator Goal (LTG) DASH score to less than 8 to show improved functional ability LTG Duration 05/14/19 ROM Short Term Goal (STG) Pt will have full PROM to allow improvement in motion. STG Duration achieved Detention Goal (LTG) Pt will have R full AROM as compared to L side to allow greater ease with ADLs. LTG Duration achieved strength Short Term Goal (STG) Pt will be indep with HEP STG Duration achieved Detention Goal (LTG) Pt will have 5/5 in B UE allowing return to typical activities without pain. LTG Duration 05/14/19 Assessment Summary Assessment Pt has full AROM at this time besides minor limits in IR. She has improved in strength and will be working with HEP to cont to strengthen. Physical Therapy Plan Frequency and Duration Frequency of Treatment 2x/Week Duration of Treatment 2 months Plan of Care Start Date 03/14/29 Plan of Care End Date 05/14/19 Next Visit Focus/Plan Next Note Type Treatment Note Next Visit Plan cont to advance scap stability & overhead motion
--- NOTE | 2019-05-08 11:55 | PT.OTN ---
Current Diagnoses Incomplete rotator cuff tear or rupture of right shoulder, not specified as traumatic (05/08/19) Physical Therapy Treatment Note PT-OP-A Visit Information Start: 03/13/19 17:35 Freq: Status: Active Protocol: Document 05/08/19 10:54 [facility] (Rec: 05/08/19 11:55 [facility] [id number]) Out-Patient Physical Therapy Visit Information Visit Information Visit Type Treatment Note Visit Start Time 11:13 Visit Stop Time 12:03 Total Visit Minutes 50 Visit Number 2/ Number of CROWN ASSEMBLY MACHINE SET UP MECHANIC Visits 0 PT-OP-B Current Condition Start: 03/13/19 17:35 Freq: Status: Active Protocol: Document 03/14/19 08:10 [facility] (Rec: 03/14/19 09:10 [facility] [id number]) Current Condition History of Current Condition Onset Date 6 weeks ago flare up Current Complaints R shoulder pain History of Current Condition Pt reports a few years ago, she was decorating the [employer] tree and reached up high and it felt like someone stabbed a dagger into her shoulder then saw the MD and got a MRI which showed a small tear in the rotator cuff and a small bone spur and torn biceps. Pt reports she has had 4 instances since then that have set it off. Pt reports when it does it then it sets her back several weeks. There is no specific movement that seems to flare it up. Reports she was travelling this time and her ROM as very limited for reaching out and up and still is. Pt stopped doing her upper body exercises when this initially happened d/t being concerned to hurt it more. Prior Treatments and Tests MRI years ago Future Testing and Treatments Planned Follow up with ortho Treatment Goals Patient/Caregiver Goals Start PT before seeing ortho; make her shoulder managable, livable and reliable. PT-OP-C Subjective Start: 03/13/19 17:35 Freq: Status: Active Protocol: Document 05/08/19 10:54 [facility] (Rec: 05/08/19 11:55 [facility] [id number]) OP-PT Subjective Patient Comments Patient Comments Reports her shoulder had been doing well overall but did mow the lawn yesterday and shoulder is a little sore from that. Patient Reported Progress Improving PT-OP-J Posture/Palpation/Skin Start: 03/13/19 17:35 Freq: Status: Active Protocol: Document 03/14/19 08:10 [facility] (Rec: 03/14/19 09:10 [facility] [id number]) Posture Evaluation Eddie Postural Classification System Eddie Postural Classifications Vertical/Posterior Comments Posture Comments inc kyphosis & fwd head & shoulders PT-OP-K Range of Motion Start: 03/13/19 17:35 Freq: Status: Active Protocol: Document 05/01/19 11:28 [facility] (Rec: 05/01/19 12:03 [facility] [id number]) Shoulder Goniometric Range of Motion Shoulder Right Active Flexion 160 Extension 72 Abduction 171 External Rotation at 90 degrees 100 Abduction Internal Rotation 56 Internal Rotation Behind Back (text) T10 PT-OP-L Special Tests Start: 03/13/19 17:35 Freq: Status: Active Protocol: Document 03/14/19 08:10 [facility] (Rec: 03/14/19 09:10 [facility] [id number]) Special Tests Shoulder Special Tests speeds Test Results positive yergesons Test Results negative Barbosa Agustin Impingement Test Results positive Neer Impingement Test Results positive Empty Can Test Results positive PT-OP-M Strength Start: 03/13/19 17:35 Freq: Status: Active Protocol: Document 05/01/19 11:28 [facility] (Rec: 05/01/19 12:03 [facility] [id number]) Shoulder Strength Shoulder Manual Muscle Testing Right Flexion 4 Good Extension 5 Normal Abduction (C5) 4 Good External Rotation 4 Good Internal Rotation 5 Normal Left Flexion 5 Normal Extension 5 Normal Abduction (C5) 5 Normal External Rotation 5 Normal Internal Rotation 5 Normal PT-OP-Q Treatments Start: 03/13/19 17:35 Freq: Status: Active Protocol: Document 05/08/19 10:54 [facility] (Rec: 05/08/19 11:55 [facility] [id number]) Cardio Equipment Upper Body Ergometer (UBE) Duration (Minutes) 6 RPM 60 Seat Position 9 Height 4.5 Other fwd/back Gym Equipment Cable Column (Body Solid) Lat Pull Down Resistance 20 Reps/Time 2x10 Therapeutic Exercises Prone Exercises ER Prone Exercise Name 90/90 Side bilateral Reps/Minutes 2x10 Standing Exercises abd Standing Exercise Name abd Side left Equipment Used L1 Reps/Minutes 20 flex Standing Exercise Name flex Side bilateral Equipment Used L2 Reps/Minutes 2x10 ER Standing Exercise Name B ER Side bilateral Equipment Used lvl 2 Reps/Minutes 20 IR Standing Exercise Name stretching Side right Reps/Minutes 20 Comments towel Manual Therapy Treatment Joint Mobilizations thoracic Joint T3-7 Direction PA & UPA R GH Joint GH Direction post glide & translation& inf & distaction PT-OP-R Modalities Start: 03/13/19 17:35 Freq: Status: Active Protocol: Document 05/08/19 10:54 [facility] (Rec: 05/08/19 11:55 [facility] [id number]) Hot Pack/Cold Pack Treatment Cold Pack Location R shoulder Patient Position Supine Treatment Duration (minutes) 10 PT-OP-T Assessment and Plan Start: 03/13/19 17:35 Freq: Status: Active Protocol: Document 05/08/19 10:54 [facility] (Rec: 05/08/19 11:55 [facility] [id number]) Physical Therapy Assessment Goals DASH Freight Rate Clerk Goal (LTG) DASH score to less than 8 to show improved functional ability 05/08-.6 LTG Duration 06/13/19 ROM Short Term Goal (STG) Pt will have full PROM to allow improvement in motion. STG Duration achieved Senior Care Goal (LTG) Pt will have R full AROM as compared to L side to allow greater ease with ADLs. LTG Duration achieved strength Short Term Goal (STG) Pt will be indep with HEP STG Duration achieved Senior Care Goal (LTG) Pt will have 5/5 in B UE allowing return to typical activities without pain. LTG Duration 05/14/19 Assessment Summary Assessment Pt cont to improve with strength, ROM and fucntional mobility. SHe would benefit from cont PT to cont to address current deficits. Physical Therapy Plan Frequency and Duration Frequency of Treatment 1-2x/Week Duration of Treatment 2 months Plan of Care Start Date 05/08/19 Plan of Care End Date 07/08/19 Therapeutic Interventions Therapeutic Interventions Aquatic Therapy Home Exercise Program Joint Mobilizations Manual Therapy Patient/Caregiver Education Self-Care/Home Management Soft Tissue Mobilization Taping Therapeutic Activities Therapeutic Exercises Modalities Cold Pack/Ice Massage Electric Stimulation Hot Packs Infrared Therapy Iontophoresis Ultrasound Next Visit Focus/Plan Next Note Type Treatment Note Next Visit Plan cont to advance scap stability & overhead motion
--- NOTE | 2019-05-08 11:55 | PT.OPPOC ---
Current Diagnoses Incomplete rotator cuff tear or rupture of right shoulder, not specified as traumatic (05/08/19) Provider Visit Care Team Role Provider Type Hamida Schaefer PA-C Attending Provider Advanced Straightener Primary Care Provider Specialty: Internal Medicine Address: [address] [place] [address], [id number] Email: Plan Of Care PT-OP-T Assessment and Plan Start: 03/13/19 17:35 Freq: Status: Active Protocol: Document 05/08/19 10:54 [facility] (Rec: 05/08/19 11:55 [facility] [id number]) Physical Therapy Assessment Goals DASH Vehicle Controls Engineer Goal (LTG) DASH score to less than 8 to show improved functional ability 05/08-.6 LTG Duration 06/13/19 ROM Short Term Goal (STG) Pt will have full PROM to allow improvement in motion. STG Duration achieved Mcc Goal (LTG) Pt will have R full AROM as compared to L side to allow greater ease with ADLs. LTG Duration achieved strength Short Term Goal (STG) Pt will be indep with HEP STG Duration achieved Mcc Goal (LTG) Pt will have 5/5 in B UE allowing return to typical activities without pain. LTG Duration 05/14/19 Assessment Summary Assessment Pt cont to improve with strength, ROM and fucntional mobility. SHe would benefit from cont PT to cont to address current deficits. Physical Therapy Plan Frequency and Duration Frequency of Treatment 1-2x/Week Duration of Treatment 2 months Plan of Care Start Date 05/08/19 Plan of Care End Date 07/08/19 Therapeutic Interventions Therapeutic Interventions Aquatic Therapy Home Exercise Program Joint Mobilizations Manual Therapy Patient/Caregiver Education Self-Care/Home Management Soft Tissue Mobilization Taping Therapeutic Activities Therapeutic Exercises Modalities Cold Pack/Ice Massage Electric Stimulation Hot Packs Infrared Therapy Iontophoresis Ultrasound Next Visit Focus/Plan Next Note Type Treatment Note Next Visit Plan cont to advance scap stability & overhead motion Plan of Care Dates Plan of Care Start Date 05/08/19 Plan of Care End Date 07/08/19 Please Sign and Return: I have reviewed this Plan of Care and certify that the skilled therapy services above are required to meet the patient?s needs. Physician Signature Date Printed Name and Credentials Clinical Instructor Signature Printed Name and Credentials
--- NOTE | 2019-05-24 13:49 | PT.OTN ---
Current Diagnoses Incomplete rotator cuff tear or rupture of right shoulder, not specified as traumatic (05/24/19) Physical Therapy Treatment Note PT-OP-A Visit Information Start: 03/13/19 17:35 Freq: Status: Active Protocol: Document 05/24/19 11:28 [facility] (Rec: 05/24/19 13:49 [facility] [id number]) Out-Patient Physical Therapy Visit Information Visit Information Visit Type Treatment Note Visit Start Time 11:20 Visit Stop Time 12:10 Total Visit Minutes 50 Visit Number 3/ Number of SECURITIES TELLER Visits 0 PT-OP-B Current Condition Start: 03/13/19 17:35 Freq: Status: Active Protocol: Document 03/14/19 08:10 [facility] (Rec: 03/14/19 09:10 [facility] [id number]) Current Condition History of Current Condition Onset Date 6 weeks ago flare up Current Complaints R shoulder pain History of Current Condition Pt reports a few years ago, she was decorating the [employer] tree and reached up high and it felt like someone stabbed a dagger into her shoulder then saw the MD and got a MRI which showed a small tear in the rotator cuff and a small bone spur and torn biceps. Pt reports she has had 4 instances since then that have set it off. Pt reports when it does it then it sets her back several weeks. There is no specific movement that seems to flare it up. Reports she was travelling this time and her ROM as very limited for reaching out and up and still is. Pt stopped doing her upper body exercises when this initially happened d/t being concerned to hurt it more. Prior Treatments and Tests MRI years ago Future Testing and Treatments Planned Follow up with ortho Treatment Goals Patient/Caregiver Goals Start PT before seeing ortho; make her shoulder managable, livable and reliable. PT-OP-C Subjective Start: 03/13/19 17:35 Freq: Status: Active Protocol: Document 05/24/19 11:28 [facility] (Rec: 05/24/19 13:49 [facility] [id number]) OP-PT Subjective Patient Comments Patient Comments Pt reports she had another flare uop when carrying a bucket and it started to fall and she reached fast to catch it and got pain in R bracium. Reports pain is still lingering some. PT-OP-J Posture/Palpation/Skin Start: 03/13/19 17:35 Freq: Status: Active Protocol: Document 03/14/19 08:10 [facility] (Rec: 03/14/19 09:10 [facility] [id number]) Posture Evaluation Eddie Postural Classification System [facility] Postural Classifications Vertical/Posterior Comments Posture Comments inc kyphosis & fwd head & shoulders PT-OP-K Range of Motion Start: 03/13/19 17:35 Freq: Status: Active Protocol: Document 05/01/19 11:28 [facility] (Rec: 05/01/19 12:03 [facility] [id number]) Shoulder Goniometric Range of Motion Shoulder Right Active Flexion 160 Extension 72 Abduction 171 External Rotation at 90 degrees 100 Abduction Internal Rotation 56 Internal Rotation Behind Back (text) T10 PT-OP-L Special Tests Start: 03/13/19 17:35 Freq: Status: Active Protocol: Document 03/14/19 08:10 [facility] (Rec: 03/14/19 09:10 [facility] [id number]) Special Tests Shoulder Special Tests speeds Test Results positive yergesons Test Results negative Barbosa Agustin Impingement Test Results positive Neer Impingement Test Results positive Empty Can Test Results positive PT-OP-M Strength Start: 03/13/19 17:35 Freq: Status: Active Protocol: Document 05/01/19 11:28 [facility] (Rec: 05/01/19 12:03 [facility] [id number]) Shoulder Strength Shoulder Manual Muscle Testing Right Flexion 4 Good Extension 5 Normal Abduction (C5) 4 Good External Rotation 4 Good Internal Rotation 5 Normal Left Flexion 5 Normal Extension 5 Normal Abduction (C5) 5 Normal External Rotation 5 Normal Internal Rotation 5 Normal PT-OP-Q Treatments Start: 03/13/19 17:35 Freq: Status: Active Protocol: Document 05/24/19 11:28 [facility] (Rec: 05/24/19 13:49 [facility] [id number]) Cardio Equipment Upper Body Ergometer (UBE) Duration (Minutes) 6 RPM 60 Seat Position 9 Height 4.5 Other fwd/back Therapeutic Exercises Standing Exercises posture Standing Exercise Name wall posture w/45/90 ER Reps/Minutes 10 Manual Therapy Treatment Soft Tissue Mobilization supraspinatus Body Location tendon TFM pec Body Location Pec Mobilization Type Strumming Intensity/Depth Moderate UT Body Location UT Mobilization Type Rolling Intensity/Depth Moderate Joint Mobilizations AC Joint AC Direction ventral FM GH Joint GH Direction post glide & translation& inf & distaction PT-OP-R Modalities Start: 03/13/19 17:35 Freq: Status: Active Protocol: Document 05/24/19 11:28 [facility] (Rec: 05/24/19 13:49 [facility] [id number]) Hot Pack/Cold Pack Treatment Cold Pack Location R shoulder Patient Position Supine Treatment Duration (minutes) 10 PT-OP-T Assessment and Plan Start: 03/13/19 17:35 Freq: Status: Active Protocol: Document 05/24/19 11:28 [facility] (Rec: 05/24/19 13:49 [facility] [id number]) Physical Therapy Assessment Goals DASH Half-Way Goal (LTG) DASH score to less than 8 to show improved functional ability 05/08-.6 LTG Duration 06/13/19 ROM Short Term Goal (STG) Pt will have full PROM to allow improvement in motion. STG Duration achieved Half-Way Goal (LTG) Pt will have R full AROM as compared to L side to allow greater ease with ADLs. LTG Duration achieved strength Short Term Goal (STG) Pt will be indep with HEP STG Duration achieved Retail Client Solutions Analyst Goal (LTG) Pt will have 5/5 in B UE allowing return to typical activities without pain. LTG Duration 05/14/19 Assessment Summary Assessment Pt had improvement with ROM after manual therapy. She was educated on importance of posture to dec subacromial impingement Physical Therapy Plan Frequency and Duration Frequency of Treatment 1-2x/Week Duration of Treatment 2 months Plan of Care Start Date 05/08/19 Plan of Care End Date 07/08/19 Next Visit Focus/Plan Next Note Type Treatment Note Next Visit Plan cont to advance scap stability & overhead motion
--- NOTE | 2019-05-29 17:07 | PT.OTN ---
Current Diagnoses Incomplete rotator cuff tear or rupture of right shoulder, not specified as traumatic (05/29/19) Physical Therapy Treatment Note PT-OP-A Visit Information Start: 03/13/19 17:35 Freq: Status: Active Protocol: Document 05/29/19 11:23 [facility] (Rec: 05/29/19 17:06 [facility] [id number]) Out-Patient Physical Therapy Visit Information Visit Information Visit Type Treatment Note Visit Start Time 11:17 Visit Stop Time 12:07 Total Visit Minutes 50 Visit Number 4/10 Number of CASH POSTING CLERK Visits 0 PT-OP-B Current Condition Start: 03/13/19 17:35 Freq: Status: Active Protocol: Document 03/14/19 08:10 [facility] (Rec: 03/14/19 09:10 [facility] [id number]) Current Condition History of Current Condition Onset Date 6 weeks ago flare up Current Complaints R shoulder pain History of Current Condition Pt reports a few years ago, she was decorating the [employer] tree and reached up high and it felt like someone stabbed a dagger into her shoulder then saw the MD and got a MRI which showed a small tear in the rotator cuff and a small bone spur and torn biceps. Pt reports she has had 4 instances since then that have set it off. Pt reports when it does it then it sets her back several weeks. There is no specific movement that seems to flare it up. Reports she was travelling this time and her ROM as very limited for reaching out and up and still is. Pt stopped doing her upper body exercises when this initially happened d/t being concerned to hurt it more. Prior Treatments and Tests MRI years ago Future Testing and Treatments Planned Follow up with ortho Treatment Goals Patient/Caregiver Goals Start PT before seeing ortho; make her shoulder managable, livable and reliable. PT-OP-C Subjective Start: 03/13/19 17:35 Freq: Status: Active Protocol: Document 05/29/19 11:23 [facility] (Rec: 05/29/19 17:06 [facility] [id number]) OP-PT Subjective Patient Comments Patient Comments Pt reprots she has not been compliant with exercises with shoulder. Notes PT-OP-J Posture/Palpation/Skin Start: 03/13/19 17:35 Freq: Status: Active Protocol: Document 03/14/19 08:10 [facility] (Rec: 03/14/19 09:10 [facility] [id number]) Posture Evaluation [facility] Postural Classification System [facility] Postural Classifications Vertical/Posterior Comments Posture Comments inc kyphosis & fwd head & shoulders PT-OP-K Range of Motion Start: 03/13/19 17:35 Freq: Status: Active Protocol: Document 05/01/19 11:28 [facility] (Rec: 05/01/19 12:03 [facility] [id number]) Shoulder Goniometric Range of Motion Shoulder Right Active Flexion 160 Extension 72 Abduction 171 External Rotation at 90 degrees 100 Abduction Internal Rotation 56 Internal Rotation Behind Back (text) T10 PT-OP-L Special Tests Start: 03/13/19 17:35 Freq: Status: Active Protocol: Document 03/14/19 08:10 [facility] (Rec: 03/14/19 09:10 [facility] [id number]) Special Tests Shoulder Special Tests speeds Test Results positive yergesons Test Results negative Barbosa Agustin Impingement Test Results positive Neer Impingement Test Results positive Empty Can Test Results positive PT-OP-M Strength Start: 03/13/19 17:35 Freq: Status: Active Protocol: Document 05/01/19 11:28 [facility] (Rec: 05/01/19 12:03 [facility] [id number]) Shoulder Strength Shoulder Manual Muscle Testing Right Flexion 4 Good Extension 5 Normal Abduction (C5) 4 Good External Rotation 4 Good Internal Rotation 5 Normal Left Flexion 5 Normal Extension 5 Normal Abduction (C5) 5 Normal External Rotation 5 Normal Internal Rotation 5 Normal PT-OP-Q Treatments Start: 03/13/19 17:35 Freq: Status: Active Protocol: Document 05/29/19 11:23 [facility] (Rec: 05/29/19 17:06 [facility] [id number]) Cardio Equipment Upper Body Ergometer (UBE) Duration (Minutes) 6 RPM 60 Seat Position 9 Height 4.5 Other fwd/back Therapeutic Exercises Standing Exercises posture Standing Exercise Name wall posture w/45/90 ER Reps/Minutes 10 flex Standing Exercise Name flex Side bilateral Equipment Used L2 Reps/Minutes 2x10 ER Standing Exercise Name B ER Side bilateral Equipment Used lvl 2 Reps/Minutes 20 Manual Therapy Treatment Joint Mobilizations GH Joint GH Direction post glide & translation& inf & distaction Self-Care/Home Management Treatment Education Other Education anatomy & postural anatomy PT-OP-R Modalities Start: 03/13/19 17:35 Freq: Status: Active Protocol: Document 05/29/19 11:23 [facility] (Rec: 05/29/19 17:06 [facility] [id number]) Hot Pack/Cold Pack Treatment Cold Pack Location R shoulder Patient Position Supine Treatment Duration (minutes) 10 PT-OP-T Assessment and Plan Start: 03/13/19 17:35 Freq: Status: Active Protocol: Document 05/29/19 11:23 [facility] (Rec: 05/29/19 17:06 [facility] [id number]) Physical Therapy Assessment Goals DASH [facility] Goal (LTG) DASH score to less than 8 to show improved functional ability 05/08-.6 LTG Duration 06/13/19 ROM Short Term Goal (STG) Pt will have full PROM to allow improvement in motion. STG Duration achieved [facility] Goal (LTG) Pt will have R full AROM as compared to L side to allow greater ease with ADLs. LTG Duration achieved strength Short Term Goal (STG) Pt will be indep with HEP STG Duration achieved Vocal Artist Goal (LTG) Pt will have 5/5 in B UE allowing return to typical activities without pain. LTG Duration 05/14/19 Assessment Summary Assessment Pt improved with flex overhead with cueing. With retraction with flex, she was able to control dec UT use. Physical Therapy Plan Frequency and Duration Frequency of Treatment 1-2x/Week Duration of Treatment 2 months Plan of Care Start Date 05/08/19 Plan of Care End Date 07/08/19 Next Visit Focus/Plan Next Note Type Treatment Note Next Visit Plan cont to advance scap stability & overhead motion
--- NOTE | 2019-06-05 12:03 | PT.OTN ---
Current Diagnoses Incomplete rotator cuff tear or rupture of right shoulder, not specified as traumatic (06/05/19) Physical Therapy Treatment Note PT-OP-A Visit Information Start: 03/13/19 17:35 Freq: Status: Active Protocol: Document 06/05/19 11:24 [facility] (Rec: 06/05/19 12:03 [facility] [id number]) Out-Patient Physical Therapy Visit Information Visit Information Visit Type Treatment Note Visit Start Time 11:18 Visit Stop Time 12:08 Total Visit Minutes 50 Visit Number 5/10 Number of MACHINE CARTON MARKER Visits 0 PT-OP-B Current Condition Start: 03/13/19 17:35 Freq: Status: Active Protocol: Document 03/14/19 08:10 [facility] (Rec: 03/14/19 09:10 [facility] [id number]) Current Condition History of Current Condition Onset Date 6 weeks ago flare up Current Complaints R shoulder pain History of Current Condition Pt reports a few years ago, she was decorating the [employer] tree and reached up high and it felt like someone stabbed a dagger into her shoulder then saw the MD and got a MRI which showed a small tear in the rotator cuff and a small bone spur and torn biceps. Pt reports she has had 4 instances since then that have set it off. Pt reports when it does it then it sets her back several weeks. There is no specific movement that seems to flare it up. Reports she was travelling this time and her ROM as very limited for reaching out and up and still is. Pt stopped doing her upper body exercises when this initially happened d/t being concerned to hurt it more. Prior Treatments and Tests MRI years ago Future Testing and Treatments Planned Follow up with ortho Treatment Goals Patient/Caregiver Goals Start PT before seeing ortho; make her shoulder managable, livable and reliable. PT-OP-C Subjective Start: 03/13/19 17:35 Freq: Status: Active Protocol: Document 06/05/19 11:24 [facility] (Rec: 06/05/19 12:03 [facility] [id number]) OP-PT Subjective Patient Comments Patient Comments Pt reports being sore since last session. Notes did ER & wall posture exercise PT-OP-J Posture/Palpation/Skin Start: 03/13/19 17:35 Freq: Status: Active Protocol: Document 03/14/19 08:10 [facility] (Rec: 03/14/19 09:10 [facility] [id number]) Posture Evaluation [facility] Postural Classification System [facility] Postural Classifications Vertical/Posterior Comments Posture Comments inc kyphosis & fwd head & shoulders PT-OP-K Range of Motion Start: 03/13/19 17:35 Freq: Status: Active Protocol: Document 05/01/19 11:28 [facility] (Rec: 05/01/19 12:03 [facility] [id number]) Shoulder Goniometric Range of Motion Shoulder Right Active Flexion 160 Extension 72 Abduction 171 External Rotation at 90 degrees 100 Abduction Internal Rotation 56 Internal Rotation Behind Back (text) T10 PT-OP-L Special Tests Start: 03/13/19 17:35 Freq: Status: Active Protocol: Document 03/14/19 08:10 [facility] (Rec: 03/14/19 09:10 [facility] [id number]) Special Tests Shoulder Special Tests speeds Test Results positive yergesons Test Results negative Barbosa Agustin Impingement Test Results positive Neer Impingement Test Results positive Empty Can Test Results positive PT-OP-M Strength Start: 03/13/19 17:35 Freq: Status: Active Protocol: Document 05/01/19 11:28 [facility] (Rec: 05/01/19 12:03 [facility] [id number]) Shoulder Strength Shoulder Manual Muscle Testing Right Flexion 4 Good Extension 5 Normal Abduction (C5) 4 Good External Rotation 4 Good Internal Rotation 5 Normal Left Flexion 5 Normal Extension 5 Normal Abduction (C5) 5 Normal External Rotation 5 Normal Internal Rotation 5 Normal PT-OP-Q Treatments Start: 03/13/19 17:35 Freq: Status: Active Protocol: Document 06/05/19 11:24 [facility] (Rec: 06/05/19 12:03 [facility] [id number]) Therapeutic Exercises Standing Exercises isometric Standing Exercise Name ER Side right Reps/Minutes 5 sec x6 posture Standing Exercise Name wall posture w/45/90 ER Reps/Minutes 15 flex Standing Exercise Name flex Side bilateral Equipment Used L2 Reps/Minutes 2x10 ER Standing Exercise Name B ER Side bilateral Equipment Used lvl 2 Reps/Minutes 20x2 Comments at mirror then at wall Manual Therapy Treatment Joint Mobilizations thoracic Joint T3-7 Direction PA & UPA R 1st rib Joint 1st Direction caudaul PT-OP-R Modalities Start: 03/13/19 17:35 Freq: Status: Active Protocol: Document 06/05/19 11:24 [facility] (Rec: 06/05/19 12:03 [facility] [id number]) Hot Pack/Cold Pack Treatment Cold Pack Location R shoulder Patient Position Supine Treatment Duration (minutes) 10 PT-OP-T Assessment and Plan Start: 03/13/19 17:35 Freq: Status: Active Protocol: Document 06/05/19 11:24 [facility] (Rec: 06/05/19 12:03 [facility] [id number]) Physical Therapy Assessment Goals DASH Custodial Goal (LTG) DASH score to less than 8 to show improved functional ability 05/08-.6 LTG Duration 06/13/19 ROM Short Term Goal (STG) Pt will have full PROM to allow improvement in motion. STG Duration achieved Custodial Goal (LTG) Pt will have R full AROM as compared to L side to allow greater ease with ADLs. LTG Duration achieved strength Short Term Goal (STG) Pt will be indep with HEP STG Duration achieved Lead Miner Goal (LTG) Pt will have 5/5 in B UE allowing return to typical activities without pain. LTG Duration 05/14/19 Assessment Summary Assessment Pt required max cueing with exercises for form and posture and with working on staying in comfortable range. FOcus was on her home program and proper performance and disengagment of her UT mm. Physical Therapy Plan Frequency and Duration Frequency of Treatment 1-2x/Week Duration of Treatment 2 months Plan of Care Start Date 05/08/19 Plan of Care End Date 07/08/19 Next Visit Focus/Plan Next Note Type Treatment Note Next Visit Plan cont to advance scap stability & overhead motion
--- NOTE | 2019-06-15 14:41 | PT.OTN ---
Current Diagnoses Incomplete rotator cuff tear or rupture of right shoulder, not specified as traumatic (06/15/19) Physical Therapy Treatment Note PT-OP-A Visit Information Start: 03/13/19 17:35 Freq: Status: Active Protocol: Document 06/15/19 14:37 [facility] (Rec: 06/15/19 14:41 [facility] [id number]) Out-Patient Physical Therapy Visit Information Visit Information Visit Type Treatment Note Visit Start Time 09:00 Visit Stop Time 09:45 Total Visit Minutes 45 Visit Number 6/10 Number of SUPPLY CHAIN VICE PRESIDENT Visits 1 PT-OP-B Current Condition Start: 03/13/19 17:35 Freq: Status: Active Protocol: Document 03/14/19 08:10 [facility] (Rec: 03/14/19 09:10 [facility] [id number]) Current Condition History of Current Condition Onset Date 6 weeks ago flare up Current Complaints R shoulder pain History of Current Condition Pt reports a few years ago, she was decorating the [employer] tree and reached up high and it felt like someone stabbed a dagger into her shoulder then saw the MD and got a MRI which showed a small tear in the rotator cuff and a small bone spur and torn biceps. Pt reports she has had 4 instances since then that have set it off. Pt reports when it does it then it sets her back several weeks. There is no specific movement that seems to flare it up. Reports she was travelling this time and her ROM as very limited for reaching out and up and still is. Pt stopped doing her upper body exercises when this initially happened d/t being concerned to hurt it more. Prior Treatments and Tests MRI years ago Future Testing and Treatments Planned Follow up with ortho Treatment Goals Patient/Caregiver Goals Start PT before seeing ortho; make her shoulder managable, livable and reliable. PT-OP-C Subjective Start: 03/13/19 17:35 Freq: Status: Active Protocol: Document 06/15/19 14:37 [facility] (Rec: 06/15/19 14:41 [facility] [id number]) OP-PT Subjective Patient Comments Patient Comments Pt states she trying to do her HEP. PT-OP-J Posture/Palpation/Skin Start: 03/13/19 17:35 Freq: Status: Active Protocol: Document 03/14/19 08:10 [facility] (Rec: 03/14/19 09:10 [facility] [id number]) Posture Evaluation [facility] Postural Classification System [facility] Postural Classifications Vertical/Posterior Comments Posture Comments inc kyphosis & fwd head & shoulders PT-OP-K Range of Motion Start: 03/13/19 17:35 Freq: Status: Active Protocol: Document 05/01/19 11:28 [facility] (Rec: 05/01/19 12:03 [facility] [id number]) Shoulder Goniometric Range of Motion Shoulder Right Active Flexion 160 Extension 72 Abduction 171 External Rotation at 90 degrees 100 Abduction Internal Rotation 56 Internal Rotation Behind Back (text) T10 PT-OP-L Special Tests Start: 03/13/19 17:35 Freq: Status: Active Protocol: Document 03/14/19 08:10 [facility] (Rec: 03/14/19 09:10 [facility] [id number]) Special Tests Shoulder Special Tests speeds Test Results positive yergesons Test Results negative Barbosa Agustin Impingement Test Results positive Neer Impingement Test Results positive Empty Can Test Results positive PT-OP-M Strength Start: 03/13/19 17:35 Freq: Status: Active Protocol: Document 05/01/19 11:28 [facility] (Rec: 05/01/19 12:03 [facility] [id number]) Shoulder Strength Shoulder Manual Muscle Testing Right Flexion 4 Good Extension 5 Normal Abduction (C5) 4 Good External Rotation 4 Good Internal Rotation 5 Normal Left Flexion 5 Normal Extension 5 Normal Abduction (C5) 5 Normal External Rotation 5 Normal Internal Rotation 5 Normal PT-OP-Q Treatments Start: 03/13/19 17:35 Freq: Status: Active Protocol: Document 06/15/19 14:37 [facility] (Rec: 06/15/19 14:41 [facility] [id number]) Cardio Equipment Upper Body Ergometer (UBE) Duration (Minutes) 6 RPM 60 Seat Position 9 Height 4.5 Other fwd/back Therapeutic Exercises Standing Exercises isometric Standing Exercise Name ER Side right Reps/Minutes 5 sec x6 posture Standing Exercise Name wall posture w/45/90 ER Reps/Minutes 15 flex Standing Exercise Name flex Side bilateral Equipment Used L2 Reps/Minutes 2x10 ER Standing Exercise Name B ER Side bilateral Equipment Used lvl 2 Reps/Minutes 20x2 Comments at mirror then at wall Manual Therapy Treatment Soft Tissue Mobilization UT Body Location UT Mobilization Type Rolling Intensity/Depth Moderate Joint Mobilizations 1st rib Joint 1st Direction caudaul GH Joint GH Direction post glide & translation& inf & distraction PT-OP-R Modalities Start: 03/13/19 17:35 Freq: Status: Active Protocol: Document 06/15/19 14:37 [facility] (Rec: 06/15/19 14:41 [facility] [id number]) Hot Pack/Cold Pack Treatment Cold Pack Comments Pt didn't have time for ice. PT-OP-T Assessment and Plan Start: 03/13/19 17:35 Freq: Status: Active Protocol: Document 06/15/19 14:37 [facility] (Rec: 06/15/19 14:41 [facility] [id number]) Physical Therapy Assessment Assessment Summary Assessment Pt need cues with posture. She had improved ROM with decrease C/O pain. Physical Therapy Plan Frequency and Duration Frequency of Treatment 1-2x/Week Duration of Treatment 2 months Plan of Care Start Date 05/08/19 Plan of Care End Date 07/08/19 Next Visit Focus/Plan Next Note Type Treatment Note Next Visit Plan cont to advance scap stability & overhead motion
--- NOTE | 2019-06-26 15:39 | PT.OTN ---
Current Diagnoses Incomplete rotator cuff tear or rupture of right shoulder, not specified as traumatic (06/26/19) Physical Therapy Treatment Note PT-OP-A Visit Information Start: 03/13/19 17:35 Freq: Status: Active Protocol: Document 06/26/19 14:45 [facility] (Rec: 06/26/19 15:39 [facility] [id number]) Out-Patient Physical Therapy Visit Information Visit Information Visit Type Discharge Summary Visit Start Time 14:35 Visit Stop Time 15:25 Total Visit Minutes 50 Visit Number 05/31 Number of CLINICAL SUPPORT SPECIALIST Visits 0 PT-OP-B Current Condition Start: 03/13/19 17:35 Freq: Status: Active Protocol: Document 03/14/19 08:10 [facility] (Rec: 03/14/19 09:10 [facility] [id number]) Current Condition History of Current Condition Onset Date 6 weeks ago flare up Current Complaints R shoulder pain History of Current Condition Pt reports a few years ago, she was decorating the [employer] tree and reached up high and it felt like someone stabbed a dagger into her shoulder then saw the MD and got a MRI which showed a small tear in the rotator cuff and a small bone spur and torn biceps. Pt reports she has had 4 instances since then that have set it off. Pt reports when it does it then it sets her back several weeks. There is no specific movement that seems to flare it up. Reports she was travelling this time and her ROM as very limited for reaching out and up and still is. Pt stopped doing her upper body exercises when this initially happened d/t being concerned to hurt it more. Prior Treatments and Tests MRI years ago Future Testing and Treatments Planned Follow up with ortho Treatment Goals Patient/Caregiver Goals Start PT before seeing ortho; make her shoulder managable, livable and reliable. PT-OP-C Subjective Start: 03/13/19 17:35 Freq: Status: Active Protocol: Document 06/26/19 14:45 [facility] (Rec: 06/26/19 15:39 [facility] [id number]) OP-PT Subjective Patient Comments Patient Comments Pt reports she feels ready for d/c. She is occasionally doing her exercises but feels like she has hit a plateau. Patient Questionnaires Quick Dash- Upper Extremity Quick Dash UE Score 13 PT-OP-J Posture/Palpation/Skin Start: 03/13/19 17:35 Freq: Status: Active Protocol: Document 03/14/19 08:10 [facility] (Rec: 03/14/19 09:10 [facility] [id number]) Posture Evaluation [facility] Postural Classification System [facility] Postural Classifications Vertical/Posterior Comments Posture Comments inc kyphosis & fwd head & shoulders PT-OP-K Range of Motion Start: 03/13/19 17:35 Freq: Status: Active Protocol: Document 05/01/19 11:28 [facility] (Rec: 05/01/19 12:03 [facility] [id number]) Shoulder Goniometric Range of Motion Shoulder Right Active Flexion 160 Extension 72 Abduction 171 External Rotation at 90 degrees 100 Abduction Internal Rotation 56 Internal Rotation Behind Back (text) T10 PT-OP-L Special Tests Start: 03/13/19 17:35 Freq: Status: Active Protocol: Document 03/14/19 08:10 [facility] (Rec: 03/14/19 09:10 [facility] [id number]) Special Tests Shoulder Special Tests speeds Test Results positive yergesons Test Results negative Barbosa Agustin Impingement Test Results positive Neer Impingement Test Results positive Empty Can Test Results positive PT-OP-M Strength Start: 03/13/19 17:35 Freq: Status: Active Protocol: Document 06/26/19 14:45 [facility] (Rec: 06/26/19 14:49 [facility] [id number]) Shoulder Strength Shoulder Manual Muscle Testing Right Flexion 4 Good Extension 5 Normal Abduction (C5) 4 Good External Rotation 4+ Good+ Internal Rotation 4+ Good+ PT-OP-Q Treatments Start: 03/13/19 17:35 Freq: Status: Active Protocol: Document 06/26/19 14:45 [facility] (Rec: 06/26/19 15:39 [facility] [id number]) Therapeutic Exercises Standing Exercises posture Standing Exercise Name wall posture w/45/90 ER Reps/Minutes 15 abd Standing Exercise Name resisted Side right Equipment Used lvl 1 Reps/Minutes 15 flex Standing Exercise Name flex w/retraction Side bilateral Equipment Used L2 Reps/Minutes 2x10 ER Standing Exercise Name B ER Side bilateral Equipment Used lvl 2 Reps/Minutes 20 shoulder ext Standing Exercise Name row Side bilateral Equipment Used lvl 2 Reps/Minutes 15 stretch Standing Exercise Name elbows straight pec stretch & 90/90 ER Side bilateral Reps/Minutes 30 sec ea Manual Therapy Treatment Soft Tissue Mobilization pec Body Location Pec Mobilization Type Strumming Intensity/Depth Moderate UT Body Location UT Mobilization Type Rolling Intensity/Depth Moderate Joint Mobilizations GH Joint GH Direction post, inf & distraction glides Self-Care/Home Management Treatment Education Other Education review of importance of HEP & posture PT-OP-R Modalities Start: 03/13/19 17:35 Freq: Status: Active Protocol: Document 06/26/19 14:45 [facility] (Rec: 06/26/19 15:39 [facility] [id number]) Hot Pack/Cold Pack Treatment Cold Pack Location R shoulder Patient Position Supine Treatment Duration (minutes) 10 PT-OP-T Assessment and Plan Start: 03/13/19 17:35 Freq: Status: Active Protocol: Document 06/26/19 14:45 [facility] (Rec: 06/26/19 15:39 [facility] [id number]) Physical Therapy Assessment Goals DASH Snf Goal (LTG) DASH score to less than 8 to show improved functional ability 05/08-.6 LTG Duration 06/13/19 ROM Short Term Goal (STG) Pt will have full PROM to allow improvement in motion. STG Duration achieved Snf Goal (LTG) Pt will have R full AROM as compared to L side to allow greater ease with ADLs. LTG Duration achieved strength Short Term Goal (STG) Pt will be indep with HEP STG Duration achieved Snf Goal (LTG) Pt will have 5/5 in B UE allowing return to typical activities without pain. LTG Duration 05/14/19 Assessment Summary Assessment Pt has made good improvement with PT but is starting to plateau with PT at this time. She is encouraged to cont HEP to cont to strengthen shoulders and work on posture in order to improve efficiency of scapular mechanics. Physical Therapy Plan Discharge Physical Therapy Discharge Reasons Plateau in Progress
--- NOTE | 2019-06-26 15:39 | PT.OPDS ---
Current Diagnoses Incomplete rotator cuff tear or rupture of right shoulder, not specified as traumatic (06/26/19) Provider Visit Care Team Role Provider Type Hamida Schaefer PA-C Attending Provider Advanced Electrical Assembly Supervisor Primary Care Provider Specialty: Internal Medicine Address: [address] [place] [address], [facility] Email: Visit Number Visit Number 05/31 Discharge Summary PT-OP-B Current Condition Start: 03/13/19 17:35 Freq: Status: Active Protocol: Document 03/14/19 08:10 [facility] (Rec: 03/14/19 09:10 [facility] [id number]) Current Condition History of Current Condition Onset Date 6 weeks ago flare up Current Complaints R shoulder pain History of Current Condition Pt reports a few years ago, she was decorating the [employer] tree and reached up high and it felt like someone stabbed a dagger into her shoulder then saw the MD and got a MRI which showed a small tear in the rotator cuff and a small bone spur and torn biceps. Pt reports she has had 4 instances since then that have set it off. Pt reports when it does it then it sets her back several weeks. There is no specific movement that seems to flare it up. Reports she was travelling this time and her ROM as very limited for reaching out and up and still is. Pt stopped doing her upper body exercises when this initially happened d/t being concerned to hurt it more. Prior Treatments and Tests MRI years ago Future Testing and Treatments Planned Follow up with ortho Treatment Goals Patient/Caregiver Goals Start PT before seeing ortho; make her shoulder managable, livable and reliable. PT-OP-C Subjective Start: 03/13/19 17:35 Freq: Status: Active Protocol: Document 06/26/19 14:45 [facility] (Rec: 06/26/19 15:39 [facility] [id number]) OP-PT Subjective Patient Comments Patient Comments Pt reports she feels ready for d/c. She is occasionally doing her exercises but feels like she has hit a plateau. Patient Questionnaires Quick Dash- Upper Extremity Quick Dash UE Score 13 PT-OP-J Posture/Palpation/Skin Start: 03/13/19 17:35 Freq: Status: Active Protocol: Document 03/14/19 08:10 [facility] (Rec: 03/14/19 09:10 [facility] [id number]) Posture Evaluation [facility] Postural Classification System [facility] Postural Classifications Vertical/Posterior Comments Posture Comments inc kyphosis & fwd head & shoulders PT-OP-K Range of Motion Start: 03/13/19 17:35 Freq: Status: Active Protocol: Document 05/01/19 11:28 [facility] (Rec: 05/01/19 12:03 [facility] [id number]) Shoulder Goniometric Range of Motion Shoulder Right Active Flexion 160 Extension 72 Abduction 171 External Rotation at 90 degrees 100 Abduction Internal Rotation 56 Internal Rotation Behind Back (text) T10 PT-OP-L Special Tests Start: 03/13/19 17:35 Freq: Status: Active Protocol: Document 03/14/19 08:10 [facility] (Rec: 03/14/19 09:10 [facility] [id number]) Special Tests Shoulder Special Tests speeds Test Results positive yergesons Test Results negative Barbosa Agustin Impingement Test Results positive Neer Impingement Test Results positive Empty Can Test Results positive PT-OP-M Strength Start: 03/13/19 17:35 Freq: Status: Active Protocol: Document 06/26/19 14:45 [facility] (Rec: 06/26/19 14:49 [facility] [id number]) Shoulder Strength Shoulder Manual Muscle Testing Right Flexion 4 Good Extension 5 Normal Abduction (C5) 4 Good External Rotation 4+ Good+ Internal Rotation 4+ Good+ PT-OP-T Assessment and Plan Start: 03/13/19 17:35 Freq: Status: Active Protocol: Document 06/26/19 14:45 [facility] (Rec: 06/26/19 15:39 [facility] [id number]) Physical Therapy Assessment Goals DASH Fpc Goal (LTG) DASH score to less than 8 to show improved functional ability 05/08-13.6 LTG Duration 06/13/19 ROM Short Term Goal (STG) Pt will have full PROM to allow improvement in motion. STG Duration achieved Fpc Goal (LTG) Pt will have R full AROM as compared to L side to allow greater ease with ADLs. LTG Duration achieved strength Short Term Goal (STG) Pt will be indep with HEP STG Duration achieved Dental Therapist Goal (LTG) Pt will have 5/5 in B UE allowing return to typical activities without pain. LTG Duration 05/14/19 Assessment Summary Assessment Pt has made good improvement with PT but is starting to plateau with PT at this time. She is encouraged to cont HEP to cont to strengthen shoulders and work on posture in order to improve efficiency of scapular mechanics. Physical Therapy Plan Discharge Physical Therapy Discharge Reasons Plateau in Progress
== END 2019-06-28 09:46 | disposition home or self-care (01) ==
LOC: PHYS 14:30
PROVIDERS: PCP Physician Assistant; Visit Provider Physician Assistant
DX: M75.111 Incomplete rotator cuff tear or rupture of right shoulder, not specified as traumatic (principal)
CPT/HCPCS: 97110; 97140; 97162; 97535

== ENCOUNTER → 2019-10-09 09:06 | Outpatient (CLI) | payer MEDICARE, OTHER, SELFPAY ==
--- NOTE | 2019-10-09 | DI.RAD.S_ITS ---
PROCEDURE: XR CHEST 2V INDICATIONS: WHEEZING TECHNIQUE: 2 views of the chest were acquired. COMPARISON: None. FINDINGS: Surgical changes and devices: None. Lungs and pleura: Lungs are clear. No pleural effusions or pneumothorax. Mediastinum: Mediastinal contours are normal. Heart size is normal. Bones and chest wall: No suspicious bony abnormalities. Soft tissues appear unremarkable. IMPRESSION: No acute cardiopulmonary disease. Dictated by: Estefani Castillo M.D. on 10/09/2019 at 11:05 Approved by: Estefani Castillo M.D. on 10/09/2019 at 11:05
[2019-10-09 09:55] LABS: Add Manual Diff / Slide Review NO; Basophils Absolute Auto 0 /uL (0-100); Basophils Percent Auto 0.7 % (0-2); Eosinophils Absolute Auto 100 /uL (0-450); Eosinophils Percent Auto 2.7 % (2-4); Hematocrit 36.8 % (36-46); Hemoglobin 12.4 g/dL (12.0-16.0); Lymphocytes Absolute Auto 800 /uL (1100-4500); Lymphocytes Percent Auto 19.1 % (25-40); Mean Corpuscular HGB Conc 33.7 % (30-36); Mean Corpuscular Hemoglobin 31.2 PG (26-34); Mean Corpuscular Volume 92.5 fL (80-100); Monocytes Absolute Auto 400 /uL (0-900); Neutrophils Absolute Auto 3000 /uL (1500-7000); Neutrophils Percent Auto 68.5 % (50-75); Platelet Count 232 X10^3/uL (150-400); Red Blood Cell Count 3.98 X10^6/uL (4.0-5.2); Red Cell Distribution Width 13.1 % (11.6-14.8); White Blood Cell Count 4.3 X10^3/uL (4.5-11.0)
[2019-10-09 10:01] LABS: Alanine Aminotransferase 19 IU/L (<35); Albumin 4.3 g/dL (3.5-5.0); Albumin Globulin Ratio 1.5 (1.0-2.8); Alkaline Phosphatase 78 U/L (38-126); Aspartate Aminotransferase 28 IU/L (14-36); Bilirubin Total 0.5 mg/dL (0.2-1.3); Blood Urea Nitrogen 12 mg/dL (7-17); Calcium 9.1 mg/dL (8.4-10.2); Carbon Dioxide 27 mmol/L (22-32); Chloride 101 mmol/L (98-107); Cholesterol 151 mg/dL (140-199); Estimated Glomerular Filt Rate > 60.0 mL/min (>60); Globulin 2.8 g/dL (1.7-4.1); Glucose 91 mg/dL (80-110); HDL Cholesterol 49 mg/dL (40-60); HEMOLYSIS < 15 (0-50); LDL Cholesterol Calculated 86 mg/dL (<100); Potassium 4.4 mmol/L (3.4-5.1); Sodium 139 mmol/L (137-145); Total Protein 7.1 g/dL (6.3-8.2); Triglycerides 78 mg/dL (35-150)
[2019-10-09 10:17] LABS: Free T4, Direct Thyroxine 1.22 ng/dL (0.78-2.19)
[2019-10-09 10:31] LABS: Thyroid Stimulating Hormone 2.71 uIU/mL (0.47-4.68)
[2019-10-09 10:32] LABS: Ferritin 17.7 ng/mL (11.1-264)
[2019-10-09 17:03] LABS: Vitamin D 25 Hydroxy (D3) 19.1 ng/mL (30.0-100.0)
[2019-10-11 14:57] LABS: Triiodothyronine T3 Total 111 ng/dL (76-181)
== END ==
PROVIDERS: PCP Internal Medicine; Visit Provider Internal Medicine
DX: R91.8 Other nonspecific abnormal finding of lung field (principal); E03.9 Hypothyroidism, unspecified; L65.9 Nonscarring hair loss, unspecified; M85.9 Disorder of bone density and structure, unspecified; E78.2 Mixed hyperlipidemia; I10 Essential (primary) hypertension
CPT/HCPCS: 36415; 71046; 80053; 80061; 82306; 82728; 84439; 84443; 84480; 85025

== ENCOUNTER → 2020-01-31 09:35 | Outpatient (CLI) | payer MEDICARE, OTHER, SELFPAY ==
[2020-01-31 10:08] LABS: Add Manual Diff / Slide Review NO; Basophils Absolute Auto 0 /uL (0-100); Eosinophils Absolute Auto 100 /uL (0-450); Eosinophils Percent Auto 3.9 % (2-4); Hematocrit 36.7 % (36-46); Hemoglobin 12.5 g/dL (12.0-16.0); Lymphocytes Absolute Auto 900 /uL (1100-4500); Lymphocytes Percent Auto 24.1 % (25-40); Mean Corpuscular HGB Conc 34.1 % (30-36); Mean Corpuscular Hemoglobin 31.5 PG (26-34); Mean Corpuscular Volume 92.3 fL (80-100); Monocytes Absolute Auto 400 /uL (0-900); Monocytes Percent Auto 10.7 % (3-14); Neutrophils Absolute Auto 2300 /uL (1500-7000); Neutrophils Percent Auto 60.3 % (50-75); Platelet Count 240 X10^3/uL (150-400); Red Blood Cell Count 3.98 X10^6/uL (4.0-5.2); Red Cell Distribution Width 13.4 % (11.6-14.8); White Blood Cell Count 3.9 X10^3/uL (4.5-11.0)
[2020-01-31 10:14] LABS: Reticulocyte Count, Percent 1.4 % (1.06-2.63)
[2020-01-31 10:55] LABS: HEMOLYSIS < 15 (0-50); Iron 66 ug/dL (37-170)
[2020-01-31 11:05] LABS: Percent Iron Saturation 17 % (15-50); Total Iron Binding Capacity 380 ug/dL (265-497); Transferrin 311 mg/dL (206-381)
[2020-01-31 11:27] LABS: Ferritin 28 ng/mL (11-264)
== END ==
PROVIDERS: PCP Internal Medicine; Referring Provider Internal Medicine; Visit Provider Internal Medicine
DX: E61.1 Iron deficiency (principal)
CPT/HCPCS: 36415; 82728; 83540; 83550; 85025; 85045

== ENCOUNTER → 2020-05-09 14:43 | Outpatient (CLI) | payer MEDICARE, OTHER, SELFPAY ==
--- NOTE | 2020-05-09 | DI.MG.S_ITS ---
BILATERAL DIGITAL SCREENING MAMMOGRAM 3D/2D WITH CAD: 05/09/2020 CLINICAL: Routine screening. Comparison is made to exams dated: 03/17/2019 mammogram, 09/05/2018 mammogram, 08/25/2017 mammogram, and 08/17/2016 mammogram - [facility]. There are scattered fibroglandular elements in both breasts. Current study was also evaluated with a Computer Aided Detection (CAD) system. No significant masses, calcifications, or other findings are seen in either breast. There has been no significant interval change. IMPRESSION: NEGATIVE There is no mammographic evidence of malignancy. A 1 year screening mammogram is recommended. This exam was interpreted at Station ID: [id number]. NOTE: For mammograms, a report in lay terms will be sent to the patient. Approximately 15% of breast malignancies will not be visualized mammographically. In the management of a palpable breast mass, a negative mammogram must not discourage biopsy of a clinically suspicious lesion. Electronically Signed By: Germán gardiner/mal:05/09/2020 16:46:54 letter sent: Normal Exam ACR BI-RADS Category 1: Negative 3341F
== END ==
PROVIDERS: PCP Internal Medicine; Referring Provider Internal Medicine; Visit Provider Internal Medicine
DX: Z12.31 Encounter for screening mammogram for malignant neoplasm of breast (principal)
CPT/HCPCS: 77063; 77067

== ENCOUNTER → 2020-12-30 09:03 | Outpatient (CLI) | payer MEDICARE, OTHER, SELFPAY ==
[2020-12-30 10:18] LABS: Add Manual Diff / Slide Review NO; Basophils Absolute Auto 0 /uL (0-100); Basophils Percent Auto 1.1 % (0-2); Eosinophils Absolute Auto 100 /uL (0-450); Eosinophils Percent Auto 4.6 % (2-4); Hematocrit 38.1 % (36-46); Hemoglobin 12.7 g/dL (12.0-16.0); Lymphocytes Absolute Auto 700 /uL (1100-4500); Lymphocytes Percent Auto 21.2 % (25-40); Mean Corpuscular HGB Conc 33.3 % (30-36); Mean Corpuscular Hemoglobin 31.1 PG (26-34); Mean Corpuscular Volume 93.5 fL (80-100); Monocytes Absolute Auto 300 /uL (0-900); Monocytes Percent Auto 9.9 % (3-14); Neutrophils Absolute Auto 2000 /uL (1500-7000); Neutrophils Percent Auto 63.2 % (50-75); Platelet Count 229 X10^3/uL (150-400); Red Blood Cell Count 4.07 X10^6/uL (4.0-5.2); Red Cell Distribution Width 13.1 % (11.6-14.8); White Blood Cell Count 3.2 X10^3/uL (4.5-11.0)
[2020-12-30 10:47] LABS: Alanine Aminotransferase 23 IU/L (<35); Albumin 4.3 g/dL (3.5-5.0); Albumin Globulin Ratio 1.4 (1.0-2.8); Alkaline Phosphatase 76 U/L (38-126); Aspartate Aminotransferase 29 IU/L (14-36); BUN Creatinine Ratio 35.7 (6-22); Bilirubin Total 0.2 mg/dL (0.2-1.3); Blood Urea Nitrogen 20 mg/dL (7-17); Calcium 9.3 mg/dL (8.4-10.2); Carbon Dioxide 33 mmol/L (22-32); Chloride 102 mmol/L (98-107); Cholesterol 154 mg/dL (140-199); Estimated Glomerular Filt Rate > 60.0 mL/min (>60); Glucose 95 mg/dL (80-110); HDL Cholesterol 54 mg/dL (40-60); HEMOLYSIS < 15 (0-50); LDL Cholesterol Calculated 84 mg/dL (<100); Potassium 4.6 mmol/L (3.4-5.1); Sodium 139 mmol/L (137-145); Total Protein 7.3 g/dL (6.3-8.2); Triglycerides 78 mg/dL (35-150)
[2020-12-30 11:22] LABS: TSH w/ Reflex to FT4 1.09 uIU/mL (0.47-4.68)
== END ==
PROVIDERS: PCP Internal Medicine; Referring Provider Internal Medicine; Visit Provider Internal Medicine
DX: E78.2 Mixed hyperlipidemia (principal); I10 Essential (primary) hypertension; E03.9 Hypothyroidism, unspecified; M19.90 Unspecified osteoarthritis, unspecified site
CPT/HCPCS: 36415; 80053; 80061; 84443; 85025

== ENCOUNTER → 2021-01-16 10:23 | Outpatient (CLI) | payer MEDICARE, OTHER, SELFPAY ==
[2021-01-16 11:14] LABS: Add Manual Diff / Slide Review NO; Basophils Absolute Auto 0 /uL (0-100); Basophils Percent Auto 0.7 % (0-2); Eosinophils Absolute Auto 100 /uL (0-450); Eosinophils Percent Auto 3.4 % (2-4); Hematocrit 37.8 % (36-46); Hemoglobin 12.5 g/dL (12.0-16.0); Lymphocytes Absolute Auto 700 /uL (1100-4500); Lymphocytes Percent Auto 17.9 % (25-40); Mean Corpuscular Hemoglobin 30.5 PG (26-34); Mean Corpuscular Volume 92.5 fL (80-100); Monocytes Absolute Auto 400 /uL (0-900); Monocytes Percent Auto 9.5 % (3-14); Neutrophils Absolute Auto 2800 /uL (1500-7000); Neutrophils Percent Auto 68.5 % (50-75); Platelet Count 229 X10^3/uL (150-400); Red Blood Cell Count 4.09 X10^6/uL (4.0-5.2); Red Cell Distribution Width 13.2 % (11.6-14.8); White Blood Cell Count 4.2 X10^3/uL (4.5-11.0)
== END ==
PROVIDERS: PCP Internal Medicine; Referring Provider Internal Medicine; Visit Provider Internal Medicine
DX: E78.2 Mixed hyperlipidemia (principal); I10 Essential (primary) hypertension; E03.9 Hypothyroidism, unspecified; M19.90 Unspecified osteoarthritis, unspecified site
CPT/HCPCS: 36415; 85025

== ENCOUNTER → 2021-05-13 09:39 | Outpatient (CLI) | payer MEDICARE, OTHER, SELFPAY ==
--- NOTE | 2021-05-13 | DI.MG.S_ITS ---
BILATERAL DIGITAL SCREENING MAMMOGRAM 3D/2D WITH CAD: 05/13/2021 CLINICAL: Routine screening. Comparison is made to exams dated: 05/09/2020 mammogram, 03/17/2019 mammogram, 09/05/2018 mammogram, and 08/25/2017 mammogram - [facility]. There are scattered fibroglandular elements in both breasts. Current study was also evaluated with a Computer Aided Detection (CAD) system. No significant masses, calcifications, or other findings are seen in either breast. There has been no significant interval change. IMPRESSION: NEGATIVE There is no mammographic evidence of malignancy. A 1 year screening mammogram is recommended. This exam was interpreted at Station ID: [id number]. NOTE: For mammograms, a report in lay terms will be sent to the patient. Approximately 15% of breast malignancies will not be visualized mammographically. In the management of a palpable breast mass, a negative mammogram must not discourage biopsy of a clinically suspicious lesion. Electronically Signed By: Juan Jose brizuela/mal:05/13/2021 10:25:50 letter sent: Normal Exam ACR BI-RADS Category 1: Negative 3341F
== END ==
PROVIDERS: PCP Internal Medicine; Referring Provider Internal Medicine; Visit Provider Internal Medicine
DX: Z12.31 Encounter for screening mammogram for malignant neoplasm of breast (principal)
CPT/HCPCS: 77063; 77067

== ENCOUNTER → 2021-06-19 10:09 | Outpatient (CLI) | payer MEDICARE, OTHER, SELFPAY ==
[2021-06-19 11:13] LABS: Add Manual Diff / Slide Review NO; Basophils Absolute Auto 0 /uL (0-100); Eosinophils Absolute Auto 200 /uL (0-450); Eosinophils Percent Auto 4.4 % (2-4); Hematocrit 36.3 % (36-46); Hemoglobin 12.1 g/dL (12.0-16.0); Lymphocytes Absolute Auto 700 /uL (1100-4500); Lymphocytes Percent Auto 19.5 % (25-40); Mean Corpuscular HGB Conc 33.4 % (30-36); Mean Corpuscular Hemoglobin 30.9 PG (26-34); Mean Corpuscular Volume 92.5 fL (80-100); Monocytes Absolute Auto 400 /uL (0-900); Neutrophils Absolute Auto 2500 /uL (1500-7000); Neutrophils Percent Auto 64.1 % (50-75); Platelet Count 237 X10^3/uL (150-400); Red Blood Cell Count 3.93 X10^6/uL (4.0-5.2); Red Cell Distribution Width 13.5 % (11.6-14.8); White Blood Cell Count 3.8 X10^3/uL (4.5-11.0)
[2021-06-19 11:32] LABS: BUN Creatinine Ratio 27.3 (6-22); Blood Urea Nitrogen 15 mg/dL (7-17); Calcium 9.1 mg/dL (8.4-10.2); Carbon Dioxide 25 mmol/L (22-32); Chloride 102 mmol/L (98-107); Estimated Glomerular Filt Rate > 60.0 mL/min (>60); Glucose 83 mg/dL (80-110); HEMOLYSIS < 15 (0-50); Potassium 4.3 mmol/L (3.4-5.1); Sodium 133 mmol/L (137-145)
== END ==
PROVIDERS: PCP Internal Medicine; Referring Provider Internal Medicine; Visit Provider Internal Medicine
DX: I10 Essential (primary) hypertension (principal); D72.819 Decreased white blood cell count, unspecified; I73.00 Raynaud's syndrome without gangrene
CPT/HCPCS: 36415; 80048; 85025

== ENCOUNTER → 2022-05-15 10:28 | Outpatient (CLI) | payer MEDICARE, OTHER, SELFPAY ==
[2022-05-15 11:46] LABS: COVID19 -Nasal RAPID Negative (Negative)
== END ==
PROVIDERS: PCP Internal Medicine; Visit Provider Surgery
DX: Z20.822 Contact with and (suspected) exposure to COVID-19 (principal); Z01.812 Encounter for preprocedural laboratory examination
CPT/HCPCS: 87635; C9803

== ENCOUNTER 2022-05-18 12:19 | Day surgery (SDC) | payer MEDICARE, OTHER, SELFPAY ==
--- NOTE | 2022-05-18 12:46 | PM.HP.1 ---
History of Present Illness History of Present Illness Date Patient Seen: 05/18/22 Time Patient Seen: 12:46 Chief complaint: SDC Narrative: Personal history of colon polyps. Patient History Medical History Allergic rhinitis Chronic cough HTN (hypertension) Hyperlipidemia Hypothyroidism associated with surgical procedure Lichen sclerosus et atrophicus Obstructive sleep apnea of adult Osteoarthritis Osteopenia Primary insomnia Varicosities of leg Vitamin D deficiency Surgical History History of breast mammoplasty History of facelift Hx of bilateral breast reduction surgery Hx of bladder repair surgery Hx of partial thyroidectomy Hx of partial thyroidectomy S/P foot surgery, right S/P trigger finger release S/P UVPP (uvulopalatopharyngoplasty) Family & Social History Family History Mother Heart attack Social History: household members none,other Tobacco & Substance use: Smoking Status Never smoker alcohol intake current Meds Home Medications and Allergies Home Medications Medication Instructions Recorded Confirmed Type atorvastatin 10 mg tablet 10 mg PO DAILY 09/21/18 09/22/19 History levothyroxine 100 mcg tablet 100 mcg PO DAILY 09/21/18 09/22/19 History (Synthroid) lisinopril 10 mg tablet 10 mg PO DAILY 09/21/18 09/22/19 History meloxicam 7.5 mg tablet 7.5 mg PO DAILY 09/21/18 09/22/19 History tolterodine 4 mg capsule,extended 4 mg PO DAILY 09/21/18 09/22/19 History release 24 hr (Detrol LA) Resmed Airsense 10 CPAP #1 ea 03/22/19 09/22/19 History clobetasol 0.025 % topical cream 1 applictn topical DAILY 04/19/19 09/22/19 History conjugated estrogens 0.625 mg/gram vaginal 04/19/19 09/22/19 History vaginal cream (Premarin) Allergies Allergy/AdvReac Type Severity Reaction Status Date / Time codeine [CODEINE] Allergy Mild NAUSEA/VOMI Verified 04/19/19 11:34 TING Review of Systems Review of Systems ROS: Yes All systems reviewed with the patient and are negative except as otherwise documented Exam Const General: cooperative HENMT Head: normal to inspection Eyes General: appearance normal, both eyes and all related structures Neck Neck: normal visual inspection Chest Chest: normal inspection of the chest Resp Effort & Inspection: normal respiratory effort Cardio Rate: regular rate GI Inspection: normal to inspection Skin General: no rashes or lesions noted Neuro General: patient alert and patient awake Extrem General: normal to inspection and no pedal edema Psych Appearance: grossly normal Assessment & Plan Assessment & Plan narrative: 76-year-old female with a personal history of colon polyps here for surveillance. Colonoscopy is pursued today. Time Spent With Patient Critical Care time: I spent a total of [] minutes of critical care time on this patient's care today; this time is exclusive of procedural time.
--- NOTE | 2022-05-18 12:47 | PM.PREOP ---
Pre-operative Note COVID-19 COVID-19 status: Negative Result date/Date tested (Pos, Neg/Pending): 05/15/22 Criteria for continued procedure: Possibility delay results in more complex future surgery or treatment Interval Note History & Physical reviewed/Exam performed by Physician: Yes Changes to H&P: No ASA Class (for procedural sedation): II
[2022-05-18 12:49] VITALS: BP 141/78; PULSE 80; RESP 16; TEMP 36.7; O2SAT 96; BMI 29.2
[2022-05-18] MEDS: SODIUM CHLORIDE 0.9% 1,000 ML 100 ML IV (13:10)
--- NOTE | 2022-05-18 14:49 | P.OP.COLON_ITS ---
Operative Date/Time/Diagnoses Date of procedure: 05/18/22 Time of procedure: 14:49 Pre-op diagnosis: Personal history of colon polyps Post-op diagnosis: same Procedure & Clinicians Study performed: Colonoscopy Same procedure as scheduled: Yes Indications: Personal history of colon polyps Surgeon: Adalid Lowry Procedure Notes SCOAP/Timeout: Done Procedure in detail: After the risks and benefits were explained, written and verbal informed consent was obtained. The patient was brought into the procedure room and placed into the left lateral decubitus position. Please see nurse medical device sales consultant notes for sedation details. Digital rectal examination was accomplished. The scope was introduced into the patient and advanced under direct visualization to the cecum as identified by the appendiceal orifice and ileocecal valve. The scope was slowly withdrawn to carefully examine the mucosa for any defects or lesions. Comprehensive imaging was accomplished throughout the rectum including the dentate line. The colon was decompressed, the scope was then removed from the patient who tolerated the procedure well. Pediatric colonoscope Bowel prep adequate Scope withdrawal time: 6 minutes Sedation minutes: 21 Specimen(s): none sent Complications: none Impression: Patient had a very tortuous rectosigmoid region. Navigation through this location was difficult. In the sigmoid were scattered diverticula. No significant polyps mass lesions or inflammatory features identified throughout. Endoscopic diagnosis 1. Diverticulosis 2. Twisty colon Post-procedure Plan for aftercare: 1. Continue to follow along in primary care. 2. Surveillance colonoscopy would typically be recommended for 7-10 years based on today's examination. Therefore it is not recommended at this time. Disposition: PACU
[2022-05-18 14:52] VITALS: BP 116/57; PULSE 65; RESP 16; TEMP 36.2; O2SAT 97
[2022-05-18 14:57] VITALS: BP 127/60; PULSE 67; RESP 16; O2SAT 97
[2022-05-18 15:02] VITALS: BP 110/69; PULSE 65; RESP 17; O2SAT 98
[2022-05-18 15:03] VITALS: BP 142/75; PULSE 63; RESP 15; O2SAT 100
== END 2022-05-18 15:18 | disposition home or self-care (01) ==
PROVIDERS: PCP Internal Medicine; Referring Provider Internal Medicine Gastroenterology; Visit Provider Internal Medicine Gastroenterology
PROC: 0DJD8ZZ Inspection of Lower Intestinal Tract, Via Natural or Artificial Opening Endoscopic (ICD-10-PCS; CPT 45378; principal; 2022-05-18 13:30)
DX: Z12.11 Encounter for screening for malignant neoplasm of colon (principal); Z86.010 Personal history of colon polyps; K57.30 Diverticulosis of large intestine without perforation or abscess without bleeding; I10 Essential (primary) hypertension; G47.33 Obstructive sleep apnea (adult) (pediatric)
CPT/HCPCS: G0105; J2704

== ENCOUNTER → 2022-05-21 12:25 | Outpatient (CLI) | payer MEDICARE, OTHER, SELFPAY ==
--- NOTE | 2022-05-21 | DI.MG.S_ITS ---
BILATERAL DIGITAL SCREENING MAMMOGRAM 3D/2D WITH CAD: 05/21/2022 CLINICAL: Routine screening. Comparison is made to exams dated: 05/13/2021 mammogram, 05/09/2020 mammogram, and 09/05/2018 mammogram - [facility]. There are scattered fibroglandular elements in both breasts. Current study was also evaluated with a Computer Aided Detection (CAD) system. No significant masses, calcifications, or other findings are seen in either breast. There has been no significant interval change. IMPRESSION: NEGATIVE There is no mammographic evidence of malignancy. A 1 year screening mammogram is recommended. Based on the Tyrer Cuzick model (a risk assessment model) the patient's lifetime risk is 3.7% and her 10 year risk is 3.3%. According to the ACR, ACS, and NCCN guidelines, an annual breast MRI exam along with mammogram is recommended if the patient's lifetime risk is 20% or greater. This exam was interpreted at Station ID: [id number]. NOTE: For mammograms, a report in lay terms will be sent to the patient. Approximately 15% of breast malignancies will not be visualized mammographically. In the management of a palpable breast mass, a negative mammogram must not discourage biopsy of a clinically suspicious lesion. Electronically Signed By: Pravin Vuong M.D., jr/mal:05/21/2022 13:00:52 letter sent: Normal Exam ACR BI-RADS Category 1: Negative 3341F
== END ==
PROVIDERS: PCP Internal Medicine; Referring Provider Internal Medicine; Visit Provider Internal Medicine
DX: Z12.31 Encounter for screening mammogram for malignant neoplasm of breast (principal)
CPT/HCPCS: 77063; 77067

== ENCOUNTER → 2023-05-24 14:33 | Outpatient (CLI) | payer MEDICARE, OTHER, SELFPAY ==
--- NOTE | 2023-05-24 | DI.MG.S_ITS ---
BILATERAL DIGITAL SCREENING MAMMOGRAM 3D/2D WITH CAD: 05/24/2023 Comparison is made to exams dated: 05/21/2022 mammogram, 05/13/2021 mammogram, and 05/09/2020 mammogram - [facility]. There are scattered areas of fibroglandular density in both breasts (category b / 25%-50% glandular tissue). Current study was also evaluated with a Computer Aided Detection (CAD) system. No significant masses, calcifications, or other findings are seen in either breast. There has been no significant interval change. IMPRESSION: NEGATIVE There is no mammographic evidence of malignancy. A 1 year screening mammogram is recommended. Based on the Tyrer Cuzick model (a risk assessment model) the patient's lifetime risk is 3.4% and her 10 year risk is 3.4%. According to the ACR, ACS, and NCCN guidelines, an annual breast MRI exam along with mammogram is recommended if the patient's lifetime risk is 20% or greater. This exam was interpreted at Station ID: [id number]. NOTE: For mammograms, a report in lay terms will be sent to the patient. Approximately 15% of breast malignancies will not be visualized mammographically. In the management of a palpable breast mass, a negative mammogram must not discourage biopsy of a clinically suspicious lesion. Electronically Signed By: Darryn muñiz/mal:05/24/2023 15:18:33 letter sent: Normal Exam ACR BI-RADS Category 1: Negative 3341F
== END ==
PROVIDERS: Family Provider Orthopaedic Surgery Foot and Ankle Surgery; PCP Physician Assistant; Referring Provider Physician Assistant; Visit Provider Physician Assistant
DX: Z12.31 Encounter for screening mammogram for malignant neoplasm of breast (principal)
CPT/HCPCS: 77063; 77067

== ENCOUNTER → 2023-06-18 09:08 | Outpatient (CLI) | payer MEDICARE, OTHER, SELFPAY ==
[2023-06-18 10:36] LABS: Add Manual Diff / Slide Review NO; Basophils Absolute Auto 0 /uL (0-100); Basophils Percent Auto 0.9 % (0-2); Eosinophils Absolute Auto 100 /uL (0-450); Eosinophils Percent Auto 3.4 % (2-4); Hemoglobin 12.6 g/dL (12.0-16.0); Lymphocytes Absolute Auto 600 /uL (1100-4500); Mean Corpuscular Hemoglobin 31.1 PG (26-34); Mean Corpuscular Volume 91.4 fL (80-100); Monocytes Absolute Auto 400 /uL (0-900); Neutrophils Absolute Auto 2500 /uL (1500-7000); Neutrophils Percent Auto 68.7 % (50-75); Platelet Count 239 X10^3/uL (150-400); Red Blood Cell Count 4.04 X10^6/uL (4.0-5.2); Red Cell Distribution Width 13.6 % (11.6-14.8); White Blood Cell Count 3.7 X10^3/uL (4.5-11.0)
[2023-06-18 11:05] LABS: Alanine Aminotransferase 27 IU/L (<35); Albumin 4.3 g/dL (3.5-5.0); Albumin Globulin Ratio 1.5 (1.0-2.8); Alkaline Phosphatase 98 U/L (38-126); Aspartate Aminotransferase 31 IU/L (14-36); BUN Creatinine Ratio 25.9 (6-22); Bilirubin Total 0.5 mg/dL (0.2-1.3); Blood Urea Nitrogen 15 mg/dL (7-17); Calcium 9.1 mg/dL (8.4-10.2); Carbon Dioxide 27 mmol/L (22-32); Chloride 99 mmol/L (98-107); Cholesterol 152 mg/dL (140-199); Estimated Glomerular Filt Rate > 60 mL/min (>60); Globulin 2.8 g/dL (1.7-4.1); Glucose 82 mg/dL (80-110); HDL Cholesterol 53 mg/dL (40-60); HEMOLYSIS < 15 (0-50); LDL Cholesterol Calculated 80 mg/dL (<100); Potassium 4.4 mmol/L (3.4-5.1); Sodium 133 mmol/L (137-145); Total Protein 7.1 g/dL (6.3-8.2); Triglycerides 93 mg/dL (35-150)
[2023-06-18 11:28] LABS: TSH w/ Reflex to FT4 1.69 uIU/mL (0.47-4.68)
== END ==
PROVIDERS: Family Provider Orthopaedic Surgery Foot and Ankle Surgery; PCP Family Medicine; Referring Provider Family Medicine; Visit Provider Family Medicine
DX: D70.9 Neutropenia, unspecified (principal); E78.5 Hyperlipidemia, unspecified; E89.0 Postprocedural hypothyroidism; I10 Essential (primary) hypertension
CPT/HCPCS: 36415; 80053; 80061; 84443; 85025

== ENCOUNTER → 2023-06-21 08:06 | Outpatient (CLI) | payer MEDICARE, OTHER, SELFPAY ==
--- NOTE | 2023-06-21 08:08 | DI.US.S_ITS ---
PROCEDURE: US ABDOMEN LIMITED INDICATIONS: mass RLQ. ? hernia TECHNIQUE: Real-time focused scanning was performed of the inguinal region, with image documentation. COMPARISON: None. FINDINGS: Complex cystic and solid masslike lesion at the palpable area of concern in the right lower quadrant measuring 3.9 x 2.8 x 1.6 cm. IMPRESSION: Complex cystic and solid masslike lesion at the palpable area of concern. A hernia cannot be confirmed based on the provided images. Recommend further characterization with contrast enhanced CT of the pelvis. Approved by: Juan Jose Hartman M.D. on 06/21/2023 at 21:12
== END ==
PROVIDERS: Family Provider Orthopaedic Surgery Foot and Ankle Surgery; PCP Family Medicine; Referring Provider Family Medicine; Visit Provider Family Medicine
DX: R19.03 Right lower quadrant abdominal swelling, mass and lump (principal)
CPT/HCPCS: 76705

== ENCOUNTER → 2023-06-24 13:34 | Outpatient (CLI) | payer MEDICARE, OTHER, SELFPAY ==
--- NOTE | 2023-06-24 13:35 | DI.CT.S_ITS ---
PROCEDURE: CT ABDOMEN PELVIS W CON INDICATIONS: abd mass, f/u on US TECHNIQUE: After the administration of oral and IV contrast, axial sections were acquired from the lung bases to the pubic symphysis. Coronal and sagittal reformats were performed. For radiation dose reduction, the following was used: automated exposure control, adjustment of mA and/or kV according to patient size. COMPARISON: None. FINDINGS: Image quality: Excellent. Lung bases: Unremarkable. There is a small to moderate hiatal hernia seen. Heart: No significant findings. ABDOMEN: Liver: Incidental note is made of focal fatty infiltration adjacent to the falciform ligament, which is not regarded to be pathologic. The liver is normal in size and demonstrates no suspicious lesions. At least 1 calcified granuloma can be seen within the liver. Gallbladder: Unremarkable. Biliary ducts: Unremarkable. Pancreas: Unremarkable. Spleen: Calcified granulomas can be seen within the spleen. The spleen demonstrates normal size and demonstrates no suspicious lesion. Adrenal Glands: Unremarkable. Kidneys and Ureters: Unremarkable. Stomach and Bowel: Stomach, small bowel loops, and colon are unremarkable. Peritoneum: No abnormal intraperitoneal fluid. No free air. Ventral Wall: No hernia. Abdominal Nodes: No retroperitoneal or mesenteric adenopathy by size criteria. Vessels: Aorta and inferior vena cava are normal in size. PELVIS: Pelvic Organs: A fibroid uterus can be seen. No adnexal masses are seen on either side. Bladder: Unremarkable. Pelvic Nodes: There is a prominent right groin lymph node seen that measures 17 x 8 mm in greatest axial dimension. Miscellaneous: Within the right groin, there is a hernia seen, which contains fat and fluid. No bowel can be seen within this hernia. No additional mass can be seen within this region. Bones: [id number] dextroconvex scoliotic curvature is seen. Mild grade 1 L4-L5 anterolisthesis is seen. Degenerative changes are seen, which are overall worst at the L1-L2 level. IMPRESSION: Within the right groin, there is a hernia seen that contains fat and fluid. Prominent (yet not frankly enlarged) right groin lymph node. Additional findings: Small to moderate hiatal hernia Prior granulomatous exposure. Dextroconvex scoliosis Focal L1-L2 degenerative change Dictated by: Derik Sanchez M.D. on 06/24/2023 at 16:06 Approved by: Derik Sanchez M.D. on 06/24/2023 at 16:09
== END ==
PROVIDERS: Family Provider Orthopaedic Surgery Foot and Ankle Surgery; PCP Family Medicine; Referring Provider Family Medicine; Visit Provider Family Medicine
DX: K45.8 Other specified abdominal hernia without obstruction or gangrene (principal); K44.9 Diaphragmatic hernia without obstruction or gangrene; R19.03 Right lower quadrant abdominal swelling, mass and lump; M41.9 Scoliosis, unspecified; M47.816 Spondylosis without myelopathy or radiculopathy, lumbar region
CPT/HCPCS: 74177; Q9967

== ENCOUNTER → 2023-08-27 11:50 | Outpatient (CLI) | payer MEDICARE, OTHER, SELFPAY ==
--- NOTE | 2023-08-27 11:51 | DI.MRI.S_ITS ---
PROCEDURE: MR SHOULDER RT WO CON INDICATIONS: Unspecified rotator cuff tear or rupture of right shoulder, TECHNIQUE: Noncontrast oblique coronal T2 fast spin echo with fat saturation, oblique sagittal T1 spin echo and T2 fast spin echo with fat saturation, axial T1 spin echo and T2 fast spin echo with fat saturation through the shoulder. COMPARISON: Merged With [facility], MR, SHOULDER WITHOUT CONTRAST, 02/25/2015, 16:31. FINDINGS: Image quality: Diagnostic. Patient motion is noted. Rotator cuff: Full-thickness rupture of distal supraspinatus and infraspinatus at their insertions on the humeral head is seen with up to 3.9 cm medial retraction of torn tendon fibers to the level of glenoid. Low-grade intrasubstance partial-thickness tear involving distal subscapularis is seen. Sagittal images demonstrate mild to moderate supraspinatus muscle atrophy and mild infraspinatus muscle atrophy. Bones and bursae: No bone marrow contusions or fractures. Ejdd-lg-mhxkphar acromioclavicular joint osteoarthritic changes are seen with joint space narrowing and marginal osteophyte formation. Superior migration of humeral head is seen. Moderate glenohumeral joint osteoarthritic changes are also noted. The acromion demonstrates conventional anatomy, without an os acromiale. There is moderate to large joint effusion and subacromial subdeltoid bursal fluid. No gross loose bodies. Capsule and soft tissues: Signal abnormality and contour irregularity involving superior anterior labrum at 12 to 1 o'clock position is seen suggestive of superior anterior labral tear. The long head of the biceps tendon is markedly attenuated with surrounding fluid and intrasubstance T2 hyperintense signal. The rotator interval appears normal, without fibrosis. The coracohumeral ligament is normal in thickness. IMPRESSION: 1. Full-thickness rupture of distal supraspinatus and infraspinatus at their insertions on greater tuberosity with up to 3.9 cm medial retraction of torn tendon fibers to the level of glenoid. Low-grade intrasubstance partial-thickness tear involving distal subscapularis. Ifek-zv-ilmsdnrm supraspinatus muscle atrophy and mild infraspinatus muscle atrophy. 2. 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 Superior migration of humeral head in relation to glenoid. Moderate to large joint effusion and subacromial subdeltoid bursal fluid. No gross loose bodies. 3. Finding is suggestive of superior anterior labral tear at 12 to 1 o'clock position. 4. Moderate grade partial-thickness tear involving proximal long head of biceps tendon. Dictated by: Brian Oconnor M.D. on 08/27/2023 at 14:15 Approved by: Brian Oconnor M.D. on 08/27/2023 at 14:29
--- NOTE | 2023-08-27 11:51 | DI.MRI.S_ITS ---
PROCEDURE: MR CERVICAL SPINE WO CON INDICATIONS: radiculopathy, cervical region TECHNIQUE: Noncontrast sagittal T1 spin echo and T2 fast spin echo, sagittal STIR, foraminal oblique sagittal T2 fast spin echo, and axial gradient echo or T2 fast spin echo through the cervical spine. COMPARISON: None. FINDINGS: Image quality: Excellent. Alignment and Curvature: There is normal bony alignment. Bone Marrow: Marrow demonstrates normal overall signal. Spinal Cord: Visualized spinal cord has normal size and signal. No cerebellar tonsillar herniation. Paraspinous Soft Tissues: No paravertebral masses. Prevertebral soft tissues are normal in thickness. C2-C3: Uncovertebral hypertrophy on the right causes mild right foraminal stenosis. The left foramen and central canal are patent. C3-C4: Uncovertebral hypertrophy causes mild bilateral foraminal stenosis. The central canal is patent. C4-C5: Uncovertebral hypertrophy causes moderate right and mild left foraminal stenosis. The central canal is patent. C5-C6: Diffuse disc bulge causes moderate bilateral foraminal stenosis. The central canal is patent. C6-C7: Diffuse disc bulge and uncovertebral hypertrophy. The foramina and central canal are patent. C7-T1: No significant disc bulge. The foramina and central canal are patent. T1-T2: Central disc protrusion. No foraminal or central canal stenosis. IMPRESSION: 1. Multilevel cervical spondylosis causing foraminal stenosis as detailed above. Foraminal stenosis is primarily due to uncovertebral hypertrophy. 2. No abnormal spinal cord signal. Dictated by: Joe Tirado M.D. on 08/27/2023 at 15:35 Approved by: Joe Tirado M.D. on 08/27/2023 at 15:44
== END ==
PROVIDERS: Family Provider Family Medicine; PCP Family Medicine; Referring Provider Orthopaedic Surgery; Visit Provider Physical Medicine & Rehabilitation
DX: M54.12 Radiculopathy, cervical region (principal); M75.101 Unspecified rotator cuff tear or rupture of right shoulder, not specified as traumatic; S46.811A Strain of other muscles, fascia and tendons at shoulder and upper arm level, right arm, initial encounter; M62.511 Muscle wasting and atrophy, not elsewhere classified, right shoulder; M19.011 Primary osteoarthritis, right shoulder; S46.111A Strain of muscle, fascia and tendon of long head of biceps, right arm, initial encounter; M47.812 Spondylosis without myelopathy or radiculopathy, cervical region; M48.02 Spinal stenosis, cervical region
CPT/HCPCS: 72141; 73221

== ENCOUNTER 2023-09-06 12:45 | Outpatient (RCR) | payer MEDICARE, OTHER, SELFPAY ==
--- NOTE | 2023-07-06 17:22 | PT.OPPOC ---
Physical, Occupational & Speech Therapy At [facility] Current Diagnoses Pain in right shoulder (07/06/23) Pain in right knee (07/06/23) Pain in left knee (07/06/23) Cervicalgia (07/06/23) Muscle weakness (generalized) (07/06/23) Difficulty in walking, not elsewhere classified (07/06/23) Abnormal posture (07/06/23) Strain of muscle(s) and tendon(s) of the rotator cuff of right shoulder, initial encounter (07/06/23) Strain of muscle(s) and tendon(s) of the rotator cuff of right shoulder, subsequent encounter (07/06/23) Visit Care Team Role Provider Type Petrona Hermosillo MD Other Providers Physician Specialty: Orthopedics Orthopedic Surgery Address: [address] [place] [address], [address] Email: [email or web address] Ruben Wheeler DO Attending Provider Physician Family Provider Primary Care Provider Referring Provider Specialty: Family Practice Address: [address] [place] [address], [address], [facility] Email: [email or web address] Plan Of Care PT-OP-T Assessment and Plan Start: 07/05/23 18:06 Freq: Status: Active Protocol: Document 07/06/23 13:31 [facility] (Rec: 07/06/23 14:20 [facility] [id number]) Physical Therapy Assessment Rehab Potential Rehabilitation Potential Good Evaluation Complexity Number of Personal Factors/Comorbidities 3 or More Number of Body Systems Impaired 4 or More Clinical Presentation at Evaluation Evolving Impairments Impairments Activity Tolerance,Balance, Functional Activities, Functional Mobility,Gait,Pain, Posture,ROM,Soft Tissue Mobility,Strength Goals activities Short Term Goal (STG) Pt will be able to lay in bed comfortably and sleep w/o inc pain in shoulde ro knees STG Duration 08/22 Coil Rewind Machine Operator Goal (LTG) Pt will be able to return to vacumming and gardening tasks w/o inc B knee or R shoulder pain greater than 2/10 LTG Duration 11 ROM Short Term Goal (STG) Pt will improve AROM flex to at least 110 deg and abd to at least 90 deg STG Duration 08/22 Coil Rewind Machine Operator Goal (LTG) Pt will have AROM equal to that of LUE to allow for ADLs w/o pain including dressing, bathing and doing hair. LTG Duration 09/28/23 quick dash Impairment 61.4 Short Term Goal (STG) Pt will improve score to no higher than 41 to show improved functional ability. STG Duration 08/22 Alf Goal (LTG) Pt will improve score to no higher than 20 to show improved functional ability. LTG Duration 09/28/23 LEFS Impairment 30/80 Short Term Goal (STG) Pt will improve score to at least 40/80 to show improved functional ability w/daily tasks. STG Duration 08/22/23 Alf Goal (LTG) Pt iwll improve score to at least 55/80 to show improved functional ability w/daily tasks. LTG Duration 09/28/23 Assessment Summary Assessment Pt presents w/chronic pain that has worsened in B knees ( L>R) and R shoulder. 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 Pt likely has a neck component to her symptoms as well as she has a history of neck pain along w/radicular symptoms and does have fwd head positioning which likely contributes. Pt's knees are consistant w/OA, which pt has prior dx of and has some issues w/knee tracking likely d/t foot/ankle and hip mechanics. She would benefit from skilled PT to work on LE and core strength B and B scapular and thoracic stability and R shoulder strength in order to improve mechanics and ROM. Physical Therapy Plan Frequency and Duration Frequency of Treatment 2x/Week Duration of treatment (weeks) 12 Plan of Care Start Date 07/06/23 Plan of Care End Date 09/28/23 Therapeutic Interventions Therapeutic Interventions Balance Training,Gait Training ,Home Exercise Program,Joint Mobilizations,Manual Therapy, Neuromuscular Re-education, Orthotic/Prosthetic Management ,Patient/Caregiver Education, Self-Care/Home Management,Soft Tissue Mobilization,Taping, Therapeutic Activities, Therapeutic Exercises Modalities Cold Pack/Ice Massage,Electric Stimulation,Hot Packs, Infrared Therapy,Iontophoresis ,Traction- Mechanical, Ultrasound Next Visit Focus/Plan Next Note Type Treatment Note Next Visit Plan UE neural tension, hip abd/ext testing, cervcal ROM, give core exercises (DL press, bridges), sit to stand, AAROM w/cane UE; manual for AC and SC jt mobility Plan of Care Dates Plan of Care Start Date 07/06/23 Plan of Care End Date 09/28/23 Electronically Signed by: Chaparrita Rebolledo, PT 07/07/23 3891 If you are in agreement with this Plan of Care, please return a signed and dated copy. I have reviewed this Plan of Care and certify that the skilled therapy services above are required to meet the patient?s needs. Physician Signature Date Printed Name and Credentials Clinical Instructor Signature Printed Name and Credentials
--- NOTE | 2023-07-06 18:22 | PT.OIE ---
Current Diagnoses Pain in right shoulder (07/06/23) Pain in right knee (07/06/23) Pain in left knee (07/06/23) Cervicalgia (07/06/23) Muscle weakness (generalized) (07/06/23) Difficulty in walking, not elsewhere classified (07/06/23) Abnormal posture (07/06/23) Strain of muscle(s) and tendon(s) of the rotator cuff of right shoulder, initial encounter (07/06/23) Strain of muscle(s) and tendon(s) of the rotator cuff of right shoulder, subsequent encounter (07/06/23) Past Medical History (Last Updated 06/18/23 @ 08:27 by Ruben Wheeler DO) Allergic rhinitis Chronic cough HTN (hypertension) Hyperlipidemia Hypothyroidism associated with surgical procedure Lichen sclerosus et atrophicus Neutropenia Obstructive sleep apnea of adult Osteoarthritis Osteopenia Primary insomnia Varicosities of leg Vitamin D deficiency Past Surgical History (Last Reviewed 05/18/22 @ 12:46 by Adalid Lowry MD) History of breast mammoplasty History of facelift Hx of bilateral breast reduction surgery Hx of bladder repair surgery Hx of partial thyroidectomy Hx of partial thyroidectomy S/P foot surgery, right S/P trigger finger release S/P UVPP (uvulopalatopharyngoplasty) Visit Care Team Role Provider Type Petrona Hermosillo MD Other Providers Physician Specialty: Orthopedics Orthopedic Surgery Address: [address] [place] [address], [id number] Email: [email or web address] Ruben Wheeler DO Attending Provider Physician Family Provider Primary Care Provider Referring Provider Specialty: Family Practice Address: [address] [place] [address], [address], [address] Email: [email or web address] Physical Therapy Initial Evaluation PT-OP-A Visit Information Start: 07/05/23 18:06 Freq: Status: Active Protocol: Document 07/06/23 13:31 [facility] (Rec: 07/06/23 14:20 [facility] [id number]) Out-Patient Physical Therapy Visit Information Visit Information Visit Type Initial Evaluation Visit Note 12/01 Visit Start Time 13:31 Visit Stop Time 14:20 Total Visit Minutes 49 Visit Number 1 Number of MARKETING PERFORMANCE ANALYST Visits 0 PT-OP-B Current Condition Start: 07/05/23 18:06 Freq: Status: Active Protocol: Document 07/06/23 13:31 [facility] (Rec: 07/06/23 14:20 [facility] [id number]) Current Condition History of Current Condition Current Complaints B knee pain and R shoulder pain History of Current Condition Pt reports R shoulder has periodically flared up. She had a MRI about 8 years ago, which said she had a tear in her RC and a bone spur and a bicep tear. Periodically when we moves wrong, she gets pain and it can tiake a while to go away. She mowed her lawn in early May (not self propelled ) and it aggrevated her R>L shoulder and it started to get better about 3 weeks ago. Recently the bicep gets really 'hard and is creating a lot of pull and stress up neck to base of skull which is new. The pain used to be sharpness on the top on the shoulder w/ reaching up. When she saw the MD, he did a very aggressive testing and flared it again. She notes it can be a real nagging pain sleeping at night . Reaching up, reaching down to wipe and reaching to wash hair is very painful. She has limited what she does d/t pain . She does have history of neck pain. Laying flat on the bed, pulls in ant shoulder and when laying on L side, the arm collapsing fwd hurts. She is avoiding pulling weeds. Pt reports B knee pain and recently even walking to the mailbox is painful. She feels like knees are like a puppet where each 3 bone moves separately. L knee froze the other day when standing and she had to hold to her friend so she could gently release her knee. B knees are problem but L is worse than R. She has seen ortho who is talking about TKA. She had 2 tours set to go where there would be a lot of walking and she knew that would be too much pain. Pt reports she started having falls where her knee collapsed when she was doing yard maintence a few years ago. She never really hurt herself but it hasn't happened often but it happened more in the past few years. Treatment Goals Patient/Caregiver Goals Be able to do ADLs w/o pain, be able to vacuum, be able to go for walks without inc pain PT-OP-C Subjective Start: 07/05/23 18:06 Freq: Status: Active Protocol: Document 07/06/23 13:31 [facility] (Rec: 07/06/23 14:20 [facility] [id number]) Patient Questionnaires Lower Extremity Functional Scale LEFS Score 30/80 Quick Dash- Upper Extremity Quick Dash UE Score 61.4 OP-PT Pain Assessment Location R shoulder Pain Location Details ant brachium & UT region to cranium Description With Movement Frequency Frequent Variations/Patterns ache in post lat forearm ( not sure)-only occ Pain Aggravating Factors ADL's,Lifting Other Pain Aggravating Factors laying, reaching, lifting anything w/o elbow by side Other Pain Alleviating Factors tylenol, maloxicam, aspercream , salonpas, supporting UE B knees Pain Location Details ant knee Description Sharp,With Movement Frequency Frequent Pain Aggravating Factors Standing,Walking,Stair Climbing,Bending Pain Alleviating Factors Medication,Inactivity PT-OP-D Balance Start: 07/05/23 18:06 Freq: Status: Active Protocol: Document 07/06/23 13:31 [facility] (Rec: 07/06/23 14:20 [facility] [id number]) Balance Tests Single Limb Standing Single Limb- Right >30 sec but leans to R and uses UEs Single Limb- Left 20 sec but leans to L and uses UEs PT-OP-G Mobility & Gait Start: 07/05/23 18:06 Freq: Status: Active Protocol: Document 07/06/23 13:31 [facility] (Rec: 07/06/23 14:20 [facility] [id number]) OP Gait Assessment Comments Gait Comments pt has harder impact onto LLE and leans over LLE in stance, occ RLE add PT-OP-J Posture/Palpation/Skin Start: 07/05/23 18:06 Freq: Status: Active Protocol: Document 07/06/23 13:31 [facility] (Rec: 07/06/23 14:20 [facility] [id number]) Posture Evaluation Eddie Postural Classification System Eddie Postural Classifications Posterior/Anterior Comments Posture Comments Fwd head and rounded shoulders PT-OP-K Range of Motion Start: 07/05/23 18:06 Freq: Status: Active Protocol: Document 07/06/23 13:31 [facility] (Rec: 07/06/23 14:20 [facility] [id number]) Cervical Spine Range of Motion Cervical Spine Active Degrees Rotation Left 71 Rotation Right 62 Shoulder Goniometric Range of Motion Shoulder Right Active Flexion 87 Extension 39 Abduction 61 External Rotation at 0 degrees Abduction 35 Internal Rotation Behind Back (text) L2 Left Active Flexion 140 Extension 76 Abduction 158 External Rotation at 90 degrees 87 Abduction External Rotation at 0 degrees Abduction 81 Internal Rotation Behind Back (text) T6 Knee Goniometric Range of Motion Knee Right Flexion Active (degrees) 117 Extension Active (degrees) 12 Comments tight w/flex, discomfort w/ext Left Flexion Active (degrees) 121 Extension Active (degrees) 8 Comments tight w/flex, discomfort w/ext PT-OP-L Special Tests Start: 07/05/23 18:06 Freq: Status: Active Protocol: Document 07/06/23 13:31 [facility] (Rec: 07/06/23 14:20 [facility] [id number]) Special Tests Cervical Spine Special Tests Vertebral Artery Test Results no symptoms Comments ausciltation of heart (4 loc) WNL & carotid WNL Spurling's Test Test Results neg Shoulder Special Tests speeds Test Results positive Barbosa Agustin Impingement Test Results positive Neer Impingement Test Results positive Empty Can Test Results positive PT-OP-M Strength Start: 07/05/23 18:06 Freq: Status: Active Protocol: Document 07/06/23 13:31 [facility] (Rec: 07/06/23 14:20 [facility] [id number]) Shoulder Strength Shoulder Manual Muscle Testing Right Flexion 2+ Poor+ Extension 3+ Fair+ Abduction (C5) 2+ Poor+ External Rotation 3 Fair Internal Rotation 3+ Fair+ Left Flexion 4 Good Extension 4+ Good+ Abduction (C5) 4 Good External Rotation 4 Good Internal Rotation 4+ Good+ Hip Strength Hip Manual Muscle Testing Right Flexion (L2) 3 Fair External Rotation 3+ Fair+ Internal Rotation 3 Fair Left Flexion (L2) 3 Fair External Rotation 3 Fair Internal Rotation 3 Fair Knee Strength Knee Manual Muscle Testing Right Flexion (S2) 4+ Good+ Extension (L3) 4 Good Left Flexion (S2) 4- Good- Extension (L3) 3+ Fair+ Comments pain w/both Ankle/Foot Strength Ankle and Foot Manual Muscle Testing Right Dorsiflexion (L4) 5 Normal Plantarflexion (S1) 5 Normal Comments PF tested setaed B Left Dorsiflexion (L4) 3+ Fair+ Plantarflexion (S1) 5 Normal Comments recently foot and sticks to floor an ddoesn't lift up PT-OP-T Assessment and Plan Start: 07/05/23 18:06 Freq: Status: Active Protocol: Document 07/06/23 13:31 [facility] (Rec: 07/06/23 14:20 [facility] [id number]) Physical Therapy Assessment Rehab Potential Rehabilitation Potential Good Evaluation Complexity Number of Personal Factors/Comorbidities 3 or More Number of Body Systems Impaired 4 or More Clinical Presentation at Evaluation Evolving Impairments Impairments Activity Tolerance,Balance, Functional Activities, Functional Mobility,Gait,Pain, Posture,ROM,Soft Tissue Mobility,Strength Goals activities Short Term Goal (STG) Pt will be able to lay in bed comfortably and sleep w/o inc pain in shoulde ro knees STG Duration 08/22 Clinical Dietician Goal (LTG) Pt will be able to return to vacumming and gardening tasks w/o inc B knee or R shoulder pain greater than 2/10 LTG Duration 09/28 ROM Short Term Goal (STG) Pt will improve AROM flex to at least 110 deg and abd to at least 90 deg STG Duration 08/22 Intermediate Goal (LTG) Pt will have AROM equal to that of LUE to allow for ADLs w/o pain including dressing, bathing and doing hair. LTG Duration 09/28/23 quick dash Impairment 61.4 Short Term Goal (STG) Pt will improve score to no higher than 41 to show improved functional ability. STG Duration 08/22 Clinical Dietician Goal (LTG) Pt will improve score to no higher than 20 to show improved functional ability. LTG Duration 09/28/23 LEFS Impairment 30/80 Short Term Goal (STG) Pt will improve score to at least 40/80 to show improved functional ability w/daily tasks. STG Duration 08/22/23 Intermediate Goal (LTG) Pt iwll improve score to at least 55/80 to show improved functional ability w/daily tasks. LTG Duration 09/28/23 Assessment Summary Assessment Pt presents w/chronic pain that has worsened in B knees ( L>R) and R shoulder. 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 Pt likely has a neck component to her symptoms as well as she has a history of neck pain along w/radicular symptoms and does have fwd head positioning which likely contributes. Pt's knees are consistant w/OA, which pt has prior dx of and has some issues w/knee tracking likely d/t foot/ankle and hip mechanics. She would benefit from skilled PT to work on LE and core strength B and B scapular and thoracic stability and R shoulder strength in order to improve mechanics and ROM. Physical Therapy Plan Frequency and Duration Frequency of Treatment 2x/Week Duration of treatment (weeks) 12 Plan of Care Start Date 07/06/23 Plan of Care End Date 09/28/23 Therapeutic Interventions Therapeutic Interventions Balance Training,Gait Training ,Home Exercise Program,Joint Mobilizations,Manual Therapy, Neuromuscular Re-education, Orthotic/Prosthetic Management ,Patient/Caregiver Education, Self-Care/Home Management,Soft Tissue Mobilization,Taping, Therapeutic Activities, Therapeutic Exercises Modalities Cold Pack/Ice Massage,Electric Stimulation,Hot Packs, Infrared Therapy,Iontophoresis ,Traction- Mechanical, Ultrasound Next Visit Focus/Plan Next Note Type Treatment Note Next Visit Plan UE neural tension, hip abd/ext testing, cervcal ROM, give core exercises (DL press, bridges), sit to stand, AAROM w/cane UE; manual for AC and SC jt mobility
--- NOTE | 2023-07-08 15:48 | PT.OTN ---
Current Diagnoses Pain in right shoulder (07/08/23) Pain in right knee (07/08/23) Pain in left knee (07/08/23) Cervicalgia (07/08/23) Muscle weakness (generalized) (07/08/23) Difficulty in walking, not elsewhere classified (07/08/23) Abnormal posture (07/08/23) Strain of muscle(s) and tendon(s) of the rotator cuff of right shoulder, initial encounter (07/08/23) Strain of muscle(s) and tendon(s) of the rotator cuff of right shoulder, subsequent encounter (07/08/23) Physical Therapy Treatment Note PT-OP-A Visit Information Start: 07/05/23 18:06 Freq: Status: Active Protocol: Document 07/08/23 13:38 [facility] (Rec: 07/08/23 15:48 [facility] [id number]) Out-Patient Physical Therapy Visit Information Visit Information Visit Type Treatment Note Visit Note 01/01 Visit Start Time 13:35 Visit Stop Time 14:15 Total Visit Minutes 40 Visit Number 2 Number of BLUEPRINTING AND PHOTOCOPY SUPERVISOR Visits 0 PT-OP-B Current Condition Start: 07/05/23 18:06 Freq: Status: Active Protocol: Document 07/06/23 13:31 [facility] (Rec: 07/06/23 14:20 [facility] [id number]) Current Condition History of Current Condition Current Complaints B knee pain and R shoulder pain History of Current Condition Pt reports R shoulder has periodically flared up. She had a MRI about 8 years ago, which said she had a tear in her RC and a bone spur and a bicep tear. Periodically when we moves wrong, she gets pain and it can tiake a while to go away. She mowed her lawn in early May (not self propelled ) and it aggrevated her R>L shoulder and it started to get better about 3 weeks ago. Recently the bicep gets really 'hard and is creating a lot of pull and stress up neck to base of skull which is new. The pain used to be sharpness on the top on the shoulder w/ reaching up. When she saw the MD, he did a very aggressive testing and flared it again. She notes it can be a real nagging pain sleeping at night . Reaching up, reaching down to wipe and reaching to wash hair is very painful. She has limited what she does d/t pain . She does have history of neck pain. Laying flat on the bed, pulls in ant shoulder and when laying on L side, the arm collapsing fwd hurts. She is avoiding pulling weeds. Pt reports B knee pain and recently even walking to the mailbox is painful. She feels like knees are like a puppet where each 3 bone moves separately. L knee froze the other day when standing and she had to hold to her friend so she could gently release her knee. B knees are problem but L is worse than R. She has seen ortho who is talking about TKA. She had 2 tours set to go where there would be a lot of walking and she knew that would be too much pain. Pt reports she started having falls where her knee collapsed when she was doing yard maintence a few years ago. She never really hurt herself but it hasn't happened often but it happened more in the past few years. Treatment Goals Patient/Caregiver Goals Be able to do ADLs w/o pain, be able to vacuum, be able to go for walks without inc pain PT-OP-C Subjective Start: 07/05/23 18:06 Freq: Status: Active Protocol: Document 07/08/23 13:38 [facility] (Rec: 07/08/23 15:48 [facility] [id number]) OP-PT Subjective Patient Comments Patient Comments Pt reports R UE had pain from neck to hand after IE PT-OP-D Balance Start: 07/05/23 18:06 Freq: Status: Active Protocol: Document 07/06/23 13:31 [facility] (Rec: 07/06/23 14:20 [facility] [id number]) Balance Tests Single Limb Standing Single Limb- Right >30 sec but leans to R and uses UEs Single Limb- Left 20 sec but leans to L and uses UEs PT-OP-G Mobility & Gait Start: 07/05/23 18:06 Freq: Status: Active Protocol: Document 07/06/23 13:31 [facility] (Rec: 07/06/23 14:20 [facility] [id number]) OP Gait Assessment Comments Gait Comments pt has harder impact onto LLE and leans over LLE in stance, occ RLE add PT-OP-J Posture/Palpation/Skin Start: 07/05/23 18:06 Freq: Status: Active Protocol: Document 07/06/23 13:31 [facility] (Rec: 07/06/23 14:20 [facility] [id number]) Posture Evaluation Eddie Postural Classification System Eddie Postural Classifications Posterior/Anterior Comments Posture Comments Fwd head and rounded shoulders PT-OP-K Range of Motion Start: 07/05/23 18:06 Freq: Status: Active Protocol: Document 07/08/23 13:38 [facility] (Rec: 07/08/23 15:48 [facility] [id number]) Cervical Spine Range of Motion Cervical Spine Active Degrees Flexion 64 Extension 42 Rotation Left 71 Rotation Right 62 Lateral Flexion Left 32 Lateral Flexion Right 17 Comments pull post flex, pull ant w/ext , discomfort in R w/B SB PT-OP-L Special Tests Start: 07/05/23 18:06 Freq: Status: Active Protocol: Document 07/08/23 13:38 [facility] (Rec: 07/08/23 15:48 [facility] [id number]) Special Tests Neural Special Tests- Upper Body Median Nerve Tension Test Results positive R Radial Nerve Tension Test Results pos R Ulnar Nerve Tension Test Results pos R PT-OP-M Strength Start: 07/05/23 18:06 Freq: Status: Active Protocol: Document 07/08/23 13:38 [facility] (Rec: 07/08/23 15:48 [facility] [id number]) Hip Strength Hip Manual Muscle Testing Right Extension (S1) 3 Fair Abduction 3 Fair Left Extension (S1) 3 Fair Abduction 3 Fair PT-OP-Q Treatments Start: 07/05/23 18:06 Freq: Status: Active Protocol: Document 07/08/23 13:38 [facility] (Rec: 07/08/23 15:48 [facility] [id number]) Therapeutic Exercises Supine Exercises axial elongation Reps/Minutes 5 sec x8 shoulder Supine Exercise Name AAROM Side right Reps/Minutes 4 Comments self lifting (tried bar but unable d/t pain) flex Supine Exercise Name DL flex isometric w/DF Side bilateral Reps/Minutes 30 sec Comments inc time for education bridge Side bilateral Reps/Minutes 5 sec x12 Standing Exercises hip abd Standing Exercise Name alt Side bilateral Equipment Used orange band Reps/Minutes 10 sit to stand Side bilateral Reps/Minutes 15 total Comments tried w/ball and w/band around knees-best w/orange band Manual Therapy Treatment Soft Tissue Mobilization superior Body Location R UT, LS, scalenes Mobilization Type Rolling Intensity/Depth Moderate Body Position Supine Comments w/AAROM cervical rot pec Body Location R Mobilization Type Rolling Intensity/Depth Moderate Joint Mobilizations GH Joint R post Grade II PT-OP-T Assessment and Plan Start: 07/05/23 18:06 Freq: Status: Active Protocol: Document 07/08/23 13:38 [facility] (Rec: 07/08/23 15:48 [facility] [id number]) Physical Therapy Assessment Goals activities Short Term Goal (STG) Pt will be able to lay in bed comfortably and sleep w/o inc pain in shoulde ro knees STG Duration 08/22 Health And Nutrition Specialist Goal (LTG) Pt will be able to return to vacumming and gardening tasks w/o inc B knee or R shoulder pain greater than 2/10 LTG Duration 09/28 ROM Short Term Goal (STG) Pt will improve AROM flex to at least 110 deg and abd to at least 90 deg STG Duration 08/22 Health And Nutrition Specialist Goal (LTG) Pt will have AROM equal to that of LUE to allow for ADLs w/o pain including dressing, bathing and doing hair. LTG Duration 09/28/23 quick dash Impairment 61.4 Short Term Goal (STG) Pt will improve score to no higher than 41 to show improved functional ability. STG Duration 08/22 Health And Nutrition Specialist Goal (LTG) Pt will improve score to no higher than 20 to show improved functional ability. LTG Duration 09/28/23 LEFS Impairment 30/80 Short Term Goal (STG) Pt will improve score to at least 40/80 to show improved functional ability w/daily tasks. STG Duration 08/22/23 Health And Nutrition Specialist Goal (LTG) Pt iwll improve score to at least 55/80 to show improved functional ability w/daily tasks. LTG Duration 09/28/23 Assessment Summary Assessment Inc time needed re: training w /exercises and pt did well once education given and adjusted and pt needed to stay in comfortable range and to go slowly Physical Therapy Plan Next Visit Focus/Plan Next Note Type Treatment Note Next Visit Plan Review :core exercises (DL press, bridges), sit to stand, AAROM UE, hip abd standing; manual for AC and SC jt mobility
--- NOTE | 2023-07-13 14:29 | PT.OTN ---
Current Diagnoses Pain in right shoulder (07/13/23) Pain in right knee (07/13/23) Pain in left knee (07/13/23) Cervicalgia (07/13/23) Muscle weakness (generalized) (07/13/23) Difficulty in walking, not elsewhere classified (07/13/23) Abnormal posture (07/13/23) Strain of muscle(s) and tendon(s) of the rotator cuff of right shoulder, initial encounter (07/13/23) Strain of muscle(s) and tendon(s) of the rotator cuff of right shoulder, subsequent encounter (07/13/23) Physical Therapy Treatment Note PT-OP-A Visit Information Start: 07/05/23 18:06 Freq: Status: Active Protocol: Document 07/13/23 13:38 [facility] (Rec: 07/13/23 14:28 [facility] [id number]) Out-Patient Physical Therapy Visit Information Visit Information Visit Type Treatment Note Visit Note 01/29 Visit Start Time 13:37 Visit Stop Time 14:26 Total Visit Minutes 49 Visit Number 3 Number of REIMBURSEMENT MANAGER Visits 0 PT-OP-B Current Condition Start: 07/05/23 18:06 Freq: Status: Active Protocol: Document 07/06/23 13:31 [facility] (Rec: 07/06/23 14:20 [facility] [id number]) Current Condition History of Current Condition Current Complaints B knee pain and R shoulder pain History of Current Condition Pt reports R shoulder has periodically flared up. She had a MRI about 8 years ago, which said she had a tear in her RC and a bone spur and a bicep tear. Periodically when we moves wrong, she gets pain and it can tiake a while to go away. She mowed her lawn in early May (not self propelled ) and it aggrevated her R>L shoulder and it started to get better about 3 weeks ago. Recently the bicep gets really 'hard and is creating a lot of pull and stress up neck to base of skull which is new. The pain used to be sharpness on the top on the shoulder w/ reaching up. When she saw the MD, he did a very aggressive testing and flared it again. She notes it can be a real nagging pain sleeping at night . Reaching up, reaching down to wipe and reaching to wash hair is very painful. She has limited what she does d/t pain . She does have history of neck pain. Laying flat on the bed, pulls in ant shoulder and when laying on L side, the arm collapsing fwd hurts. She is avoiding pulling weeds. Pt reports B knee pain and recently even walking to the mailbox is painful. She feels like knees are like a puppet where each 3 bone moves separately. L knee froze the other day when standing and she had to hold to her friend so she could gently release her knee. B knees are problem but L is worse than R. She has seen ortho who is talking about TKA. She had 2 tours set to go where there would be a lot of walking and she knew that would be too much pain. Pt reports she started having falls where her knee collapsed when she was doing yard maintence a few years ago. She never really hurt herself but it hasn't happened often but it happened more in the past few years. Treatment Goals Patient/Caregiver Goals Be able to do ADLs w/o pain, be able to vacuum, be able to go for walks without inc pain PT-OP-C Subjective Start: 07/05/23 18:06 Freq: Status: Active Protocol: Document 07/13/23 13:38 [facility] (Rec: 07/13/23 14:28 [facility] [id number]) OP-PT Subjective Patient Comments Patient Comments Pt reports R knee gave way in the living room PT-OP-D Balance Start: 07/05/23 18:06 Freq: Status: Active Protocol: Document 07/06/23 13:31 [facility] (Rec: 07/06/23 14:20 [facility] [id number]) Balance Tests Single Limb Standing Single Limb- Right >30 sec but leans to R and uses UEs Single Limb- Left 20 sec but leans to L and uses UEs PT-OP-G Mobility & Gait Start: 07/05/23 18:06 Freq: Status: Active Protocol: Document 07/06/23 13:31 [facility] (Rec: 07/06/23 14:20 [facility] [id number]) OP Gait Assessment Comments Gait Comments pt has harder impact onto LLE and leans over LLE in stance, occ RLE add PT-OP-J Posture/Palpation/Skin Start: 07/05/23 18:06 Freq: Status: Active Protocol: Document 07/06/23 13:31 [facility] (Rec: 07/06/23 14:20 [facility] [id number]) Posture Evaluation [facility] Postural Classification System Eddie Postural Classifications Posterior/Anterior Comments Posture Comments Fwd head and rounded shoulders PT-OP-K Range of Motion Start: 07/05/23 18:06 Freq: Status: Active Protocol: Document 07/08/23 13:38 [facility] (Rec: 07/08/23 15:48 [facility] [id number]) Cervical Spine Range of Motion Cervical Spine Active Degrees Flexion 64 Extension 42 Rotation Left 71 Rotation Right 62 Lateral Flexion Left 32 Lateral Flexion Right 17 Comments pull post flex, pull ant w/ext , discomfort in R w/B SB PT-OP-L Special Tests Start: 07/05/23 18:06 Freq: Status: Active Protocol: Document 07/08/23 13:38 [facility] (Rec: 07/08/23 15:48 [facility] [id number]) Special Tests Neural Special Tests- Upper Body Median Nerve Tension Test Results positive R Radial Nerve Tension Test Results pos R Ulnar Nerve Tension Test Results pos R PT-OP-M Strength Start: 07/05/23 18:06 Freq: Status: Active Protocol: Document 07/08/23 13:38 [facility] (Rec: 07/08/23 15:48 [facility] [id number]) Hip Strength Hip Manual Muscle Testing Right Extension (S1) 3 Fair Abduction 3 Fair Left Extension (S1) 3 Fair Abduction 3 Fair PT-OP-Q Treatments Start: 07/05/23 18:06 Freq: Status: Active Protocol: Document 07/13/23 13:38 [facility] (Rec: 07/13/23 14:28 [facility] [id number]) Therapeutic Exercises Supine Exercises axial elongation Reps/Minutes 15 Comments max cues to avoid lifting shoulder Supine Exercise Name AAROM Side right Reps/Minutes 4 Comments self lifting flex Supine Exercise Name DL flex isometric w/DF Side bilateral Reps/Minutes 30 sec Comments inc time for education bridge Side bilateral Reps/Minutes 5 sec x8; 10 sec x2 Comments cues for segmental lift Standing Exercises hip abd Standing Exercise Name alt Side bilateral Equipment Used orange band Reps/Minutes 10 Comments cues no lean sit to stand Side bilateral Resistance orange band Reps/Minutes 10 Comments w/band around knees Manual Therapy Treatment Soft Tissue Mobilization post Body Location R lats, teres Mobilization Type Sustained Pressure Intensity/Depth Moderate Comments w/PROM flex superior Body Location R UT, LS, scalenes & SCM Mobilization Type Rolling Intensity/Depth Moderate Body Position Supine Comments w/AAROM cervical rot pec Body Location R Mobilization Type Rolling Intensity/Depth Moderate Joint Mobilizations sternum Joint R AP manubrium FM w/cervical Flex AC Joint R calvicle ant FM SC Joint R inf FM s/l GH Joint R post & distraction Grade II PT-OP-R Modalities Start: 07/05/23 18:06 Freq: Status: Active Protocol: Document 07/13/23 13:38 [facility] (Rec: 07/13/23 14:29 [facility] [id number]) Hot Pack/Cold Pack Treatment Cold Pack Location R shoulder Patient Position Supine Treatment Duration (minutes) 10 PT-OP-T Assessment and Plan Start: 07/05/23 18:06 Freq: Status: Active Protocol: Document 07/13/23 13:38 [facility] (Rec: 07/13/23 14:28 [facility] [id number]) Physical Therapy Assessment Goals activities Short Term Goal (STG) Pt will be able to lay in bed comfortably and sleep w/o inc pain in shoulde ro knees STG Duration 08/22 Data Warehouse Administrator Goal (LTG) Pt will be able to return to vacumming and gardening tasks w/o inc B knee or R shoulder pain greater than 2/10 LTG Duration 09/28 ROM Short Term Goal (STG) Pt will improve AROM flex to at least 110 deg and abd to at least 90 deg STG Duration 08/22 [facility] Goal (LTG) Pt will have AROM equal to that of LUE to allow for ADLs w/o pain including dressing, bathing and doing hair. LTG Duration 09/28/23 quick dash Impairment 61.4 Short Term Goal (STG) Pt will improve score to no higher than 41 to show improved functional ability. STG Duration 08/22 Data Warehouse Administrator Goal (LTG) Pt will improve score to no higher than 20 to show improved functional ability. LTG Duration 09/28/23 LEFS Impairment 30/80 Short Term Goal (STG) Pt will improve score to at least 40/80 to show improved functional ability w/daily tasks. STG Duration 08/22/23 [facility] Goal (LTG) Pt iwll improve score to at least 55/80 to show improved functional ability w/daily tasks. LTG Duration 09/28/23 Assessment Summary Assessment Pt had improved tolerance of PROM after manual treatment w/ improved flex. She required cues for all exercises throughout and will require further training with these Physical Therapy Plan Frequency and Duration Frequency of Treatment 2x/Week Duration of treatment (weeks) 12 Plan of Care Start Date 07/06/23 Plan of Care End Date 09/28/23 Next Visit Focus/Plan Next Note Type Treatment Note Next Visit Plan Review :core exercises (DL press, bridges), sit to stand, AAROM UE, hip abd standing; manual for AC and SC jt mobility & GH mobility; try pulleys (gentle) & table slides for AAROM ; STM to pec, teres & lats
--- NOTE | 2023-07-15 14:51 | PT.OTN ---
Current Diagnoses Pain in right shoulder (07/15/23) Pain in right knee (07/15/23) Pain in left knee (07/15/23) Cervicalgia (07/15/23) Muscle weakness (generalized) (07/15/23) Difficulty in walking, not elsewhere classified (07/15/23) Abnormal posture (07/15/23) Strain of muscle(s) and tendon(s) of the rotator cuff of right shoulder, initial encounter (07/15/23) Strain of muscle(s) and tendon(s) of the rotator cuff of right shoulder, subsequent encounter (07/15/23) Physical Therapy Treatment Note PT-OP-A Visit Information Start: 07/05/23 18:06 Freq: Status: Active Protocol: Document 07/15/23 13:46 [facility] (Rec: 07/15/23 14:51 [id number]) Out-Patient Physical Therapy Visit Information Visit Information Visit Type Treatment Note Visit Note 03/01 Visit Start Time 13:47 Visit Stop Time 14:41 Total Visit Minutes 54 Visit Number 4 Number of HI LOW TRUCK DRIVER Visits 1 PT-OP-B Current Condition Start: 07/05/23 18:06 Freq: Status: Active Protocol: Document 07/06/23 13:31 [facility] (Rec: 07/06/23 14:20 [facility] [id number]) Current Condition History of Current Condition Current Complaints B knee pain and R shoulder pain History of Current Condition Pt reports R shoulder has periodically flared up. She had a MRI about 8 years ago, which said she had a tear in her RC and a bone spur and a bicep tear. Periodically when we moves wrong, she gets pain and it can tiake a while to go away. She mowed her lawn in early May (not self propelled ) and it aggrevated her R>L shoulder and it started to get better about 3 weeks ago. Recently the bicep gets really 'hard and is creating a lot of pull and stress up neck to base of skull which is new. The pain used to be sharpness on the top on the shoulder w/ reaching up. When she saw the MD, he did a very aggressive testing and flared it again. She notes it can be a real nagging pain sleeping at night . Reaching up, reaching down to wipe and reaching to wash hair is very painful. She has limited what she does d/t pain . She does have history of neck pain. Laying flat on the bed, pulls in ant shoulder and when laying on L side, the arm collapsing fwd hurts. She is avoiding pulling weeds. Pt reports B knee pain and recently even walking to the mailbox is painful. She feels like knees are like a puppet where each 3 bone moves separately. L knee froze the other day when standing and she had to hold to her friend so she could gently release her knee. B knees are problem but L is worse than R. She has seen ortho who is talking about TKA. She had 2 tours set to go where there would be a lot of walking and she knew that would be too much pain. Pt reports she started having falls where her knee collapsed when she was doing yard maintence a few years ago. She never really hurt herself but it hasn't happened often but it happened more in the past few years. Treatment Goals Patient/Caregiver Goals Be able to do ADLs w/o pain, be able to vacuum, be able to go for walks without inc pain PT-OP-C Subjective Start: 07/05/23 18:06 Freq: Status: Active Protocol: Document 07/15/23 13:46 (Rec: 07/15/23 14:51 [id number]) OP-PT Subjective Patient Comments Patient Comments Pt reports she felt better yesterday than the day before. She has been busy the last few days. PT-OP-D Balance Start: 07/05/23 18:06 Freq: Status: Active Protocol: Document 07/06/23 13:31 [facility] (Rec: 07/06/23 14:20 [facility] [id number]) Balance Tests Single Limb Standing Single Limb- Right >30 sec but leans to R and uses UEs Single Limb- Left 20 sec but leans to L and uses UEs PT-OP-G Mobility & Gait Start: 07/05/23 18:06 Freq: Status: Active Protocol: Document 07/06/23 13:31 [facility] (Rec: 07/06/23 14:20 [facility] [id number]) OP Gait Assessment Comments Gait Comments pt has harder impact onto LLE and leans over LLE in stance, occ RLE add PT-OP-J Posture/Palpation/Skin Start: 07/05/23 18:06 Freq: Status: Active Protocol: Document 07/06/23 13:31 [facility] (Rec: 07/06/23 14:20 [facility] [id number]) Posture Evaluation [facility] Postural Classification System [facility] Postural Classifications Posterior/Anterior Comments Posture Comments Fwd head and rounded shoulders PT-OP-K Range of Motion Start: 07/05/23 18:06 Freq: Status: Active Protocol: Document 07/08/23 13:38 [facility] (Rec: 07/08/23 15:48 [facility] [id number]) Cervical Spine Range of Motion Cervical Spine Active Degrees Flexion 64 Extension 42 Rotation Left 71 Rotation Right 62 Lateral Flexion Left 32 Lateral Flexion Right 17 Comments pull post flex, pull ant w/ext , discomfort in R w/B SB PT-OP-L Special Tests Start: 07/05/23 18:06 Freq: Status: Active Protocol: Document 07/08/23 13:38 [facility] (Rec: 07/08/23 15:48 [facility] [id number]) Special Tests Neural Special Tests- Upper Body Median Nerve Tension Test Results positive R Radial Nerve Tension Test Results pos R Ulnar Nerve Tension Test Results pos R PT-OP-M Strength Start: 07/05/23 18:06 Freq: Status: Active Protocol: Document 07/08/23 13:38 [facility] (Rec: 07/08/23 15:48 [facility] [id number]) Hip Strength Hip Manual Muscle Testing Right Extension (S1) 3 Fair Abduction 3 Fair Left Extension (S1) 3 Fair Abduction 3 Fair PT-OP-Q Treatments Start: 07/05/23 18:06 Freq: Status: Active Protocol: Document 07/15/23 13:46 [facility] (Rec: 07/15/23 14:51 [facility] [id number]) Therapeutic Exercises Supine Exercises shoulder Supine Exercise Name AAROM (done in sitting) Side right Reps/Minutes 4 Comments self lifting flex Supine Exercise Name DL flex isometric w/DF Side bilateral Reps/Minutes 30 sec Comments inc time for education bridge Side bilateral Reps/Minutes 5 sec x8; 10 sec x2 Comments cues for segmental lift Sitting Exercises AAROM Sitting Exercise Name FF, Scaption, Abd Side right Equipment Used Table/pillow case Comments Gentle ROM, not pushing into pain Standing Exercises sit to stand Side bilateral Reps/Minutes 10 Comments w/band around knees Manual Therapy Treatment Soft Tissue Mobilization post Body Location R lats, teres Mobilization Type Sustained Pressure Intensity/Depth Moderate Comments w/PROM flex superior Body Location R UT, LS, scalenes & SCM Mobilization Type Rolling Intensity/Depth Moderate Body Position Supine Comments w/AAROM cervical rot pec Body Location R Mobilization Type Rolling Intensity/Depth Moderate PT-OP-R Modalities Start: 07/05/23 18:06 Freq: Status: Active Protocol: Document 07/15/23 13:46 [facility] (Rec: 07/15/23 14:51 [facility] [id number]) Hot Pack/Cold Pack Treatment Cold Pack Location R shoulder Patient Position Supine Treatment Duration (minutes) 10 Comments bolster under knees PT-OP-T Assessment and Plan Start: 07/05/23 18:06 Freq: Status: Active Protocol: Document 07/15/23 13:46 [facility] (Rec: 07/15/23 14:51 [facility] [id number]) Physical Therapy Assessment Goals activities Short Term Goal (STG) Pt will be able to lay in bed comfortably and sleep w/o inc pain in shoulde ro knees STG Duration 08/22 Usp Goal (LTG) Pt will be able to return to vacumming and gardening tasks w/o inc B knee or R shoulder pain greater than 2/10 LTG Duration 09/28 ROM Short Term Goal (STG) Pt will improve AROM flex to at least 110 deg and abd to at least 90 deg STG Duration 08/22 Usp Goal (LTG) Pt will have AROM equal to that of LUE to allow for ADLs w/o pain including dressing, bathing and doing hair. LTG Duration 09/28/23 quick dash Impairment 61.4 Short Term Goal (STG) Pt will improve score to no higher than 41 to show improved functional ability. STG Duration 08/22 Usp Goal (LTG) Pt will improve score to no higher than 20 to show improved functional ability. LTG Duration 09/28/23 LEFS Impairment 30/80 Short Term Goal (STG) Pt will improve score to at least 40/80 to show improved functional ability w/daily tasks. STG Duration 08/22/23 Case Planner Goal (LTG) Pt iwll improve score to at least 55/80 to show improved functional ability w/daily tasks. LTG Duration 09/28/23 Assessment Summary Assessment Pt tolerated addition of new AAROM well, no increase in pain, staying within pain free range, pt had increased ROM with repititions of AAROM this session. Verbal cues required for decreasing recruitment of cervical musculature during shoulder ROM. Physical Therapy Plan Frequency and Duration Frequency of Treatment 2x/Week Duration of treatment (weeks) 12 Plan of Care Start Date 07/06/23 Plan of Care End Date 09/28/23 Therapeutic Interventions Therapeutic Interventions Balance Training,Gait Training ,Home Exercise Program,Joint Mobilizations,Manual Therapy, Neuromuscular Re-education, Orthotic/Prosthetic Management ,Patient/Caregiver Education, Self-Care/Home Management,Soft Tissue Mobilization,Taping, Therapeutic Activities, Therapeutic Exercises Modalities Cold Pack/Ice Massage,Electric Stimulation,Hot Packs, Infrared Therapy,Iontophoresis ,Traction- Mechanical, Ultrasound Next Visit Focus/Plan Next Note Type Treatment Note Next Visit Plan Review :core exercises (DL press, bridges), sit to stand, AAROM UE, hip abd standing; manual for AC and SC jt mobility & GH mobility; try pulleys (gentle) & table slides for AAROM ; STM to pec, teres & lats
--- NOTE | 2023-07-21 16:04 | PT.OTN ---
Current Diagnoses Pain in right shoulder (07/21/23) Pain in right knee (07/21/23) Pain in left knee (07/21/23) Cervicalgia (07/21/23) Muscle weakness (generalized) (07/21/23) Difficulty in walking, not elsewhere classified (07/21/23) Abnormal posture (07/21/23) Strain of muscle(s) and tendon(s) of the rotator cuff of right shoulder, initial encounter (07/21/23) Strain of muscle(s) and tendon(s) of the rotator cuff of right shoulder, subsequent encounter (07/21/23) Physical Therapy Treatment Note PT-OP-A Visit Information Start: 07/05/23 18:06 Freq: Status: Active Protocol: Document 07/21/23 12:54 SW (Rec: 07/21/23 13:44 SW [id number]) Out-Patient Physical Therapy Visit Information Visit Information Visit Type Treatment Note Visit Note 03/31 Visit Start Time 13:00 Visit Stop Time 13:55 Total Visit Minutes 55 Visit Number 5 Number of GENERAL MERCHANDISE SALESPERSON Visits 2 PT-OP-B Current Condition Start: 07/05/23 18:06 Freq: Status: Active Protocol: Document 07/06/23 13:31 [facility] (Rec: 07/06/23 14:20 [facility] [id number]) Current Condition History of Current Condition Current Complaints B knee pain and R shoulder pain History of Current Condition Pt reports R shoulder has periodically flared up. She had a MRI about 8 years ago, which said she had a tear in her RC and a bone spur and a bicep tear. Periodically when we moves wrong, she gets pain and it can tiake a while to go away. She mowed her lawn in early May (not self propelled ) and it aggrevated her R>L shoulder and it started to get better about 3 weeks ago. Recently the bicep gets really 'hard and is creating a lot of pull and stress up neck to base of skull which is new. The pain used to be sharpness on the top on the shoulder w/ reaching up. When she saw the MD, he did a very aggressive testing and flared it again. She notes it can be a real nagging pain sleeping at night . Reaching up, reaching down to wipe and reaching to wash hair is very painful. She has limited what she does d/t pain . She does have history of neck pain. Laying flat on the bed, pulls in ant shoulder and when laying on L side, the arm collapsing fwd hurts. She is avoiding pulling weeds. Pt reports B knee pain and recently even walking to the mailbox is painful. She feels like knees are like a puppet where each 3 bone moves separately. L knee froze the other day when standing and she had to hold to her friend so she could gently release her knee. B knees are problem but L is worse than R. She has seen ortho who is talking about TKA. She had 2 tours set to go where there would be a lot of walking and she knew that would be too much pain. Pt reports she started having falls where her knee collapsed when she was doing yard maintence a few years ago. She never really hurt herself but it hasn't happened often but it happened more in the past few years. Treatment Goals Patient/Caregiver Goals Be able to do ADLs w/o pain, be able to vacuum, be able to go for walks without inc pain PT-OP-C Subjective Start: 07/05/23 18:06 Freq: Status: Active Protocol: Document 07/21/23 12:54 (Rec: 07/21/23 13:44 [id number]) OP-PT Subjective Patient Comments Patient Comments Pt reports washing duvets and taking sheets off bed, 7/8 pain PT-OP-D Balance Start: 07/05/23 18:06 Freq: Status: Active Protocol: Document 07/06/23 13:31 [facility] (Rec: 07/06/23 14:20 [facility] [id number]) Balance Tests Single Limb Standing Single Limb- Right >30 sec but leans to R and uses UEs Single Limb- Left 20 sec but leans to L and uses UEs PT-OP-G Mobility & Gait Start: 07/05/23 18:06 Freq: Status: Active Protocol: Document 07/06/23 13:31 [facility] (Rec: 07/06/23 14:20 [facility] [id number]) OP Gait Assessment Comments Gait Comments pt has harder impact onto LLE and leans over LLE in stance, occ RLE add PT-OP-J Posture/Palpation/Skin Start: 07/05/23 18:06 Freq: Status: Active Protocol: Document 07/06/23 13:31 [facility] (Rec: 07/06/23 14:20 [facility] [id number]) Posture Evaluation [facility] Postural Classification System Eddie Postural Classifications Posterior/Anterior Comments Posture Comments Fwd head and rounded shoulders PT-OP-K Range of Motion Start: 07/05/23 18:06 Freq: Status: Active Protocol: Document 07/08/23 13:38 [facility] (Rec: 07/08/23 15:48 [facility] [id number]) Cervical Spine Range of Motion Cervical Spine Active Degrees Flexion 64 Extension 42 Rotation Left 71 Rotation Right 62 Lateral Flexion Left 32 Lateral Flexion Right 17 Comments pull post flex, pull ant w/ext , discomfort in R w/B SB PT-OP-L Special Tests Start: 07/05/23 18:06 Freq: Status: Active Protocol: Document 07/08/23 13:38 [facility] (Rec: 07/08/23 15:48 [facility] [id number]) Special Tests Neural Special Tests- Upper Body Median Nerve Tension Test Results positive R Radial Nerve Tension Test Results pos R Ulnar Nerve Tension Test Results pos R PT-OP-M Strength Start: 07/05/23 18:06 Freq: Status: Active Protocol: Document 07/08/23 13:38 [facility] (Rec: 07/08/23 15:48 [facility] [id number]) Hip Strength Hip Manual Muscle Testing Right Extension (S1) 3 Fair Abduction 3 Fair Left Extension (S1) 3 Fair Abduction 3 Fair PT-OP-Q Treatments Start: 07/05/23 18:06 Freq: Status: Active Protocol: Document 07/21/23 12:54 SW (Rec: 07/21/23 13:44 SW [id number]) Therapeutic Exercises Supine Exercises shoulder Supine Exercise Name AAROM Side right Reps/Minutes 4 Comments self lifting flex Supine Exercise Name DL flex isometric w/DF Side bilateral Reps/Minutes 30 sec Comments inc time for education Sitting Exercises Pulleys Sitting Exercise Name AAROM Side right Equipment Used Pulleys Comments Gentle ROM, not pushing into pain AAROM Sitting Exercise Name FF, Scaption, Abd, IR, ER Side right Equipment Used Table/pillow case Comments Gentle ROM, not pushing into pain Manual Therapy Treatment Soft Tissue Mobilization post Body Location R lats, teres Mobilization Type Sustained Pressure Intensity/Depth Moderate Comments w/PROM flex superior Body Location R UT, LS, scalenes & SCM Mobilization Type Rolling Intensity/Depth Moderate Body Position Supine Comments w/AAROM cervical rot pec Body Location R Mobilization Type Rolling Intensity/Depth Moderate PT-OP-R Modalities Start: 07/05/23 18:06 Freq: Status: Active Protocol: Document 07/21/23 12:54 SW (Rec: 07/21/23 13:44 SW [id number]) Hot Pack/Cold Pack Treatment Cold Pack Location R shoulder Patient Position Supine Treatment Duration (minutes) 12 Comments bolster under knees PT-OP-T Assessment and Plan Start: 07/05/23 18:06 Freq: Status: Active Protocol: Document 07/21/23 12:54 SW (Rec: 07/21/23 13:44 SW [id number]) Physical Therapy Assessment Goals activities Short Term Goal (STG) Pt will be able to lay in bed comfortably and sleep w/o inc pain in shoulde ro knees STG Duration 08/22 Vertical Lathe Operator Goal (LTG) Pt will be able to return to vacumming and gardening tasks w/o inc B knee or R shoulder pain greater than 2/10 LTG Duration 09/28 ROM Short Term Goal (STG) Pt will improve AROM flex to at least 110 deg and abd to at least 90 deg STG Duration 08/22 Vertical Lathe Operator Goal (LTG) Pt will have AROM equal to that of LUE to allow for ADLs w/o pain including dressing, bathing and doing hair. LTG Duration 09/28/23 quick dash Impairment 61.4 Short Term Goal (STG) Pt will improve score to no higher than 41 to show improved functional ability. STG Duration 08/22 Vertical Lathe Operator Goal (LTG) Pt will improve score to no higher than 20 to show improved functional ability. LTG Duration 09/28/23 LEFS Impairment 30/80 Short Term Goal (STG) Pt will improve score to at least 40/80 to show improved functional ability w/daily tasks. STG Duration 08/22/23 Nursing Home Goal (LTG) Pt iwll improve score to at least 55/80 to show improved functional ability w/daily tasks. LTG Duration 09/28/23 Assessment Summary Assessment Pt demonstrated decreased pain and increased ROM post manual therapy today. Tolerated addition of derrick's today in gentle pain free range. Pt appeared less guarded today by end of session. Session concentrated on shoulder today , pt has session again tomorrow, plan to focus on knees. Physical Therapy Plan Frequency and Duration Frequency of Treatment 2x/Week Duration of treatment (weeks) 12 Plan of Care Start Date 07/06/23 Plan of Care End Date 09/28/23 Therapeutic Interventions Therapeutic Interventions Balance Training,Gait Training ,Home Exercise Program,Joint Mobilizations,Manual Therapy, Neuromuscular Re-education, Orthotic/Prosthetic Management ,Patient/Caregiver Education, Self-Care/Home Management,Soft Tissue Mobilization,Taping, Therapeutic Activities, Therapeutic Exercises Modalities Cold Pack/Ice Massage,Electric Stimulation,Hot Packs, Infrared Therapy,Iontophoresis ,Traction- Mechanical, Ultrasound
--- NOTE | 2023-07-22 13:18 | PT.OTN ---
Current Diagnoses Pain in right shoulder (07/22/23) Pain in right knee (07/22/23) Pain in left knee (07/22/23) Cervicalgia (07/22/23) Muscle weakness (generalized) (07/22/23) Difficulty in walking, not elsewhere classified (07/22/23) Abnormal posture (07/22/23) Strain of muscle(s) and tendon(s) of the rotator cuff of right shoulder, initial encounter (07/22/23) Strain of muscle(s) and tendon(s) of the rotator cuff of right shoulder, subsequent encounter (07/22/23) Physical Therapy Treatment Note PT-OP-A Visit Information Start: 07/05/23 18:06 Freq: Status: Active Protocol: Document 07/22/23 10:58 SW (Rec: 07/22/23 12:59 [id number]) Out-Patient Physical Therapy Visit Information Visit Information Visit Type Treatment Note Visit Note 05/01 Visit Start Time 11:02 Visit Stop Time 11:57 Total Visit Minutes 55 Visit Number 6 Number of PREPARATION SUPERVISOR CANNING Visits 3 PT-OP-B Current Condition Start: 07/05/23 18:06 Freq: Status: Active Protocol: Document 07/06/23 13:31 [facility] (Rec: 07/06/23 14:20 [facility] [id number]) Current Condition History of Current Condition Current Complaints B knee pain and R shoulder pain History of Current Condition Pt reports R shoulder has periodically flared up. She had a MRI about 8 years ago, which said she had a tear in her RC and a bone spur and a bicep tear. Periodically when we moves wrong, she gets pain and it can tiake a while to go away. She mowed her lawn in early May (not self propelled ) and it aggrevated her R>L shoulder and it started to get better about 3 weeks ago. Recently the bicep gets really 'hard and is creating a lot of pull and stress up neck to base of skull which is new. The pain used to be sharpness on the top on the shoulder w/ reaching up. When she saw the MD, he did a very aggressive testing and flared it again. She notes it can be a real nagging pain sleeping at night . Reaching up, reaching down to wipe and reaching to wash hair is very painful. She has limited what she does d/t pain . She does have history of neck pain. Laying flat on the bed, pulls in ant shoulder and when laying on L side, the arm collapsing fwd hurts. She is avoiding pulling weeds. Pt reports B knee pain and recently even walking to the mailbox is painful. She feels like knees are like a puppet where each 3 bone moves separately. L knee froze the other day when standing and she had to hold to her friend so she could gently release her knee. B knees are problem but L is worse than R. She has seen ortho who is talking about TKA. She had 2 tours set to go where there would be a lot of walking and she knew that would be too much pain. Pt reports she started having falls where her knee collapsed when she was doing yard maintence a few years ago. She never really hurt herself but it hasn't happened often but it happened more in the past few years. Treatment Goals Patient/Caregiver Goals Be able to do ADLs w/o pain, be able to vacuum, be able to go for walks without inc pain PT-OP-C Subjective Start: 07/05/23 18:06 Freq: Status: Active Protocol: Document 07/22/23 10:58 SW (Rec: 07/22/23 13:13 [id number]) OP-PT Subjective Patient Comments Patient Comments Pt reports her shoulder is doing well today just a little sore, she has not demanded too much of it the last day. PT-OP-D Balance Start: 07/05/23 18:06 Freq: Status: Active Protocol: Document 07/06/23 13:31 [facility] (Rec: 07/06/23 14:20 [facility] [id number]) Balance Tests Single Limb Standing Single Limb- Right >30 sec but leans to R and uses UEs Single Limb- Left 20 sec but leans to L and uses UEs PT-OP-G Mobility & Gait Start: 07/05/23 18:06 Freq: Status: Active Protocol: Document 07/06/23 13:31 [facility] (Rec: 07/06/23 14:20 [facility] [id number]) OP Gait Assessment Comments Gait Comments pt has harder impact onto LLE and leans over LLE in stance, occ RLE add PT-OP-J Posture/Palpation/Skin Start: 07/05/23 18:06 Freq: Status: Active Protocol: Document 07/06/23 13:31 [facility] (Rec: 07/06/23 14:20 [facility] [id number]) Posture Evaluation [facility] Postural Classification System [facility] Postural Classifications Posterior/Anterior Comments Posture Comments Fwd head and rounded shoulders PT-OP-K Range of Motion Start: 07/05/23 18:06 Freq: Status: Active Protocol: Document 07/08/23 13:38 [facility] (Rec: 07/08/23 15:48 [facility] [id number]) Cervical Spine Range of Motion Cervical Spine Active Degrees Flexion 64 Extension 42 Rotation Left 71 Rotation Right 62 Lateral Flexion Left 32 Lateral Flexion Right 17 Comments pull post flex, pull ant w/ext , discomfort in R w/B SB PT-OP-L Special Tests Start: 07/05/23 18:06 Freq: Status: Active Protocol: Document 07/08/23 13:38 [facility] (Rec: 07/08/23 15:48 [facility] [id number]) Special Tests Neural Special Tests- Upper Body Median Nerve Tension Test Results positive R Radial Nerve Tension Test Results pos R Ulnar Nerve Tension Test Results pos R PT-OP-M Strength Start: 07/05/23 18:06 Freq: Status: Active Protocol: Document 07/08/23 13:38 [facility] (Rec: 07/08/23 15:48 [facility] [id number]) Hip Strength Hip Manual Muscle Testing Right Extension (S1) 3 Fair Abduction 3 Fair Left Extension (S1) 3 Fair Abduction 3 Fair PT-OP-Q Treatments Start: 07/05/23 18:06 Freq: Status: Active Protocol: Document 07/22/23 10:58 SW (Rec: 07/22/23 12:59 SW [id number]) Therapeutic Exercises Supine Exercises SLR Reps/Minutes 2x10 Comments cues for core stabilization bridge Side bilateral Reps/Minutes 5 sec x8; 10 sec x2 Comments cues for segmental lift Sitting Exercises Shoulder Iso Sitting Exercise Name IR/ER, Flex/ext, abd Side right Resistance Isometric Equipment Used therapist assist Reps/Minutes x20 sec Comments pain free, gentle contraction Standing Exercises hip abd Standing Exercise Name alt Side bilateral Equipment Used Green Band Reps/Minutes 10 Comments cues no lean sit to stand Side bilateral Resistance Level 3 Green Reps/Minutes 10 Comments w/band around knees Manual Therapy Treatment Soft Tissue Mobilization post Body Location R lats, teres Mobilization Type Sustained Pressure Intensity/Depth Moderate Comments w/PROM flex superior Body Location R UT, LS, scalenes & SCM Mobilization Type Rolling Intensity/Depth Moderate Body Position Supine Comments w/AAROM cervical rot pec Body Location R Mobilization Type Rolling Intensity/Depth Moderate PT-OP-R Modalities Start: 07/05/23 18:06 Freq: Status: Active Protocol: Document 07/22/23 10:58 SW (Rec: 07/22/23 13:13 [id number]) Hot Pack/Cold Pack Treatment Cold Pack Location R shoulder Patient Position Supine Treatment Duration (minutes) 12 Comments bolster under knees PT-OP-T Assessment and Plan Start: 07/05/23 18:06 Freq: Status: Active Protocol: Document 07/22/23 10:58 SW (Rec: 07/22/23 12:59 [id number]) Physical Therapy Assessment Goals activities Short Term Goal (STG) Pt will be able to lay in bed comfortably and sleep w/o inc pain in shoulde ro knees STG Duration 08/22 Senior Care Goal (LTG) Pt will be able to return to vacumming and gardening tasks w/o inc B knee or R shoulder pain greater than 2/10 LTG Duration 09/28 ROM Short Term Goal (STG) Pt will improve AROM flex to at least 110 deg and abd to at least 90 deg STG Duration 08/22 Shoe Clerk Goal (LTG) Pt will have AROM equal to that of LUE to allow for ADLs w/o pain including dressing, bathing and doing hair. LTG Duration 09/28/23 quick dash Impairment 61.4 Short Term Goal (STG) Pt will improve score to no higher than 41 to show improved functional ability. STG Duration 08/22 Senior Care Goal (LTG) Pt will improve score to no higher than 20 to show improved functional ability. LTG Duration 09/28/23 LEFS Impairment 30/80 Short Term Goal (STG) Pt will improve score to at least 40/80 to show improved functional ability w/daily tasks. STG Duration 08/22/23 Shoe Clerk Goal (LTG) Pt iwll improve score to at least 55/80 to show improved functional ability w/daily tasks. LTG Duration 09/28/23 Assessment Summary Assessment Pt had good tolerance to prior session shoulder exercises, started gentle isometric shoulder strengthening exercises today. Continued progression of LE strength with increased resistance, focused on hip hinge mechanics at variable heights of the table. Physical Therapy Plan Frequency and Duration Frequency of Treatment 2x/Week Duration of treatment (weeks) 12 Plan of Care Start Date 07/06/23 Plan of Care End Date 09/28/23 Therapeutic Interventions Therapeutic Interventions Balance Training,Gait Training ,Home Exercise Program,Joint Mobilizations,Manual Therapy, Neuromuscular Re-education, Orthotic/Prosthetic Management ,Patient/Caregiver Education, Self-Care/Home Management,Soft Tissue Mobilization,Taping, Therapeutic Activities, Therapeutic Exercises Modalities Cold Pack/Ice Massage,Electric Stimulation,Hot Packs, Infrared Therapy,Iontophoresis ,Traction- Mechanical, Ultrasound Next Visit Focus/Plan Next Note Type Treatment Note Next Visit Plan Review :core exercises (DL press, bridges), sit to stand, AAROM UE, hip abd standing; manual for AC and SC jt mobility & GH mobility; try pulleys (gentle) & table slides for AAROM ; STM to pec, teres & lats
--- NOTE | 2023-07-28 16:34 | PT.OTN ---
Current Diagnoses Pain in right shoulder (07/28/23) Pain in right knee (07/28/23) Pain in left knee (07/28/23) Cervicalgia (07/28/23) Muscle weakness (generalized) (07/28/23) Difficulty in walking, not elsewhere classified (07/28/23) Abnormal posture (07/28/23) Strain of muscle(s) and tendon(s) of the rotator cuff of right shoulder, subsequent encounter (07/28/23) Physical Therapy Treatment Note PT-OP-A Visit Information Start: 07/05/23 18:06 Freq: Status: Active Protocol: Document 07/28/23 10:58 (Rec: 07/28/23 11:46 [id number]) Out-Patient Physical Therapy Visit Information Visit Information Visit Type Treatment Note Visit Note 05/31 Visit Start Time 11:02 Visit Stop Time 11:57 Total Visit Minutes 55 Visit Number 7 Number of INTERNET SPECIALIST Visits 4 PT-OP-B Current Condition Start: 07/05/23 18:06 Freq: Status: Active Protocol: Document 07/06/23 13:31 [facility] (Rec: 07/06/23 14:20 [facility] [id number]) Current Condition History of Current Condition Current Complaints B knee pain and R shoulder pain History of Current Condition Pt reports R shoulder has periodically flared up. She had a MRI about 8 years ago, which said she had a tear in her RC and a bone spur and a bicep tear. Periodically when we moves wrong, she gets pain and it can tiake a while to go away. She mowed her lawn in early May (not self propelled ) and it aggrevated her R>L shoulder and it started to get better about 3 weeks ago. Recently the bicep gets really 'hard and is creating a lot of pull and stress up neck to base of skull which is new. The pain used to be sharpness on the top on the shoulder w/ reaching up. When she saw the MD, he did a very aggressive testing and flared it again. She notes it can be a real nagging pain sleeping at night . Reaching up, reaching down to wipe and reaching to wash hair is very painful. She has limited what she does d/t pain . She does have history of neck pain. Laying flat on the bed, pulls in ant shoulder and when laying on L side, the arm collapsing fwd hurts. She is avoiding pulling weeds. Pt reports B knee pain and recently even walking to the mailbox is painful. She feels like knees are like a puppet where each 3 bone moves separately. L knee froze the other day when standing and she had to hold to her friend so she could gently release her knee. B knees are problem but L is worse than R. She has seen ortho who is talking about TKA. She had 2 tours set to go where there would be a lot of walking and she knew that would be too much pain. Pt reports she started having falls where her knee collapsed when she was doing yard maintence a few years ago. She never really hurt herself but it hasn't happened often but it happened more in the past few years. Treatment Goals Patient/Caregiver Goals Be able to do ADLs w/o pain, be able to vacuum, be able to go for walks without inc pain PT-OP-C Subjective Start: 07/05/23 18:06 Freq: Status: Active Protocol: Document 07/28/23 10:58 (Rec: 07/28/23 11:46 [id number]) OP-PT Subjective Patient Comments Patient Comments Pt reports not good sleep last night, Positioning with shoulder has been difficult. PT-OP-D Balance Start: 07/05/23 18:06 Freq: Status: Active Protocol: Document 07/06/23 13:31 [facility] (Rec: 07/06/23 14:20 [facility] [id number]) Balance Tests Single Limb Standing Single Limb- Right >30 sec but leans to R and uses UEs Single Limb- Left 20 sec but leans to L and uses UEs PT-OP-G Mobility & Gait Start: 07/05/23 18:06 Freq: Status: Active Protocol: Document 07/06/23 13:31 [facility] (Rec: 07/06/23 14:20 [facility] [id number]) OP Gait Assessment Comments Gait Comments pt has harder impact onto LLE and leans over LLE in stance, occ RLE add PT-OP-J Posture/Palpation/Skin Start: 07/05/23 18:06 Freq: Status: Active Protocol: Document 07/06/23 13:31 [facility] (Rec: 07/06/23 14:20 [facility] [id number]) Posture Evaluation Eddie Postural Classification System Eddie Postural Classifications Posterior/Anterior Comments Posture Comments Fwd head and rounded shoulders PT-OP-K Range of Motion Start: 07/05/23 18:06 Freq: Status: Active Protocol: Document 07/08/23 13:38 [facility] (Rec: 07/08/23 15:48 [facility] [id number]) Cervical Spine Range of Motion Cervical Spine Active Degrees Flexion 64 Extension 42 Rotation Left 71 Rotation Right 62 Lateral Flexion Left 32 Lateral Flexion Right 17 Comments pull post flex, pull ant w/ext , discomfort in R w/B SB PT-OP-L Special Tests Start: 07/05/23 18:06 Freq: Status: Active Protocol: Document 07/08/23 13:38 [facility] (Rec: 07/08/23 15:48 [facility] [id number]) Special Tests Neural Special Tests- Upper Body Median Nerve Tension Test Results positive R Radial Nerve Tension Test Results pos R Ulnar Nerve Tension Test Results pos R PT-OP-M Strength Start: 07/05/23 18:06 Freq: Status: Active Protocol: Document 07/08/23 13:38 [facility] (Rec: 07/08/23 15:48 [facility] [id number]) Hip Strength Hip Manual Muscle Testing Right Extension (S1) 3 Fair Abduction 3 Fair Left Extension (S1) 3 Fair Abduction 3 Fair PT-OP-Q Treatments Start: 07/05/23 18:06 Freq: Status: Active Protocol: Document 07/28/23 10:58 [facility] (Rec: 07/28/23 11:46 SW [id number]) Therapeutic Exercises Supine Exercises shoulder Supine Exercise Name AAROM Side right Reps/Minutes 4 Comments self lifting flex Supine Exercise Name DL flex isometric w/DF Side bilateral Reps/Minutes 30 sec Comments inc time for education Sitting Exercises Wand AAROM Side right Reps/Minutes x5 Comments Too painful Scapular retraction Side bilateral Resistance AROM Reps/Minutes x10 Shoulder Iso Sitting Exercise Name IR/ER, Flex/ext, abd Side right Resistance Isometric Equipment Used therapist assist Reps/Minutes x20 sec Comments pain free, gentle contraction AAROM Sitting Exercise Name FF, Scaption, Abd, IR, ER Side right Equipment Used Table/pillow case Comments Gentle ROM, not pushing into pain Manual Therapy Treatment Soft Tissue Mobilization post Body Location R lats, teres Mobilization Type Sustained Pressure Intensity/Depth Moderate Comments w/PROM flex superior Body Location R UT, LS, scalenes & SCM Mobilization Type Rolling Intensity/Depth Moderate Body Position Supine Comments w/AAROM cervical rot pec Body Location R Mobilization Type Rolling Intensity/Depth Moderate Self-Care/Home Management Treatment Education Patient Education Body Mechanics,Joint Protection,Pain Management, Posture Other Education Sleep positioning PT-OP-R Modalities Start: 07/05/23 18:06 Freq: Status: Active Protocol: Document 07/28/23 10:58 [facility] (Rec: 07/28/23 11:46 [id number]) Hot Pack/Cold Pack Treatment Cold Pack Location R shoulder Patient Position Supine Treatment Duration (minutes) 12 Comments bolster under knees PT-OP-T Assessment and Plan Start: 07/05/23 18:06 Freq: Status: Active Protocol: Document 07/28/23 10:58 [facility] (Rec: 07/28/23 11:46 [id number]) Physical Therapy Assessment Goals activities Short Term Goal (STG) Pt will be able to lay in bed comfortably and sleep w/o inc pain in shoulde ro knees STG Duration 08/22 Promotions Coordinator Goal (LTG) Pt will be able to return to vacumming and gardening tasks w/o inc B knee or R shoulder pain greater than 2/10 LTG Duration 09/28 ROM Short Term Goal (STG) Pt will improve AROM flex to at least 110 deg and abd to at least 90 deg STG Duration 08/22 [facility] Goal (LTG) Pt will have AROM equal to that of LUE to allow for ADLs w/o pain including dressing, bathing and doing hair. LTG Duration 09/28/23 quick dash Impairment 61.4 Short Term Goal (STG) Pt will improve score to no higher than 41 to show improved functional ability. STG Duration 08/22 [facility] Goal (LTG) Pt will improve score to no higher than 20 to show improved functional ability. LTG Duration 09/28/23 LEFS Impairment 30/80 Short Term Goal (STG) Pt will improve score to at least 40/80 to show improved functional ability w/daily tasks. STG Duration 08/22/23 [facility] Goal (LTG) Pt iwll improve score to at least 55/80 to show improved functional ability w/daily tasks. LTG Duration 09/28/23 Assessment Summary Assessment Pt. arrived to PT with pain in R shoulder upon awakening this morning, positioning has been difficult. Educated patient on sleep positioning in supine/sidelying. Continued gentle isometric shoulder strengthening today, good feedback from last session w/ out increase in pain. Physical Therapy Plan Frequency and Duration Frequency of Treatment 2x/Week Duration of treatment (weeks) 12 Plan of Care Start Date 07/06/23 Plan of Care End Date 09/28/23 Therapeutic Interventions Therapeutic Interventions Balance Training,Gait Training ,Home Exercise Program,Joint Mobilizations,Manual Therapy, Neuromuscular Re-education, Orthotic/Prosthetic Management ,Patient/Caregiver Education, Self-Care/Home Management,Soft Tissue Mobilization,Taping, Therapeutic Activities, Therapeutic Exercises Modalities Cold Pack/Ice Massage,Electric Stimulation,Hot Packs, Infrared Therapy,Iontophoresis ,Traction- Mechanical, Ultrasound Next Visit Focus/Plan Next Note Type Treatment Note Next Visit Plan Review :core exercises (DL press, bridges), sit to stand, AAROM UE, hip abd standing; manual for AC and SC jt mobility & GH mobility; try pulleys (gentle) & table slides for AAROM ; STM to pec, jelena & lats
--- NOTE | 2023-08-04 18:24 | PT.OTN ---
Current Diagnoses Pain in right shoulder (08/04/23) Pain in right knee (08/04/23) Pain in left knee (08/04/23) Cervicalgia (08/04/23) Muscle weakness (generalized) (08/04/23) Difficulty in walking, not elsewhere classified (08/04/23) Abnormal posture (08/04/23) Strain of muscle(s) and tendon(s) of the rotator cuff of right shoulder, subsequent encounter (08/04/23) Physical Therapy Treatment Note PT-OP-A Visit Information Start: 07/05/23 18:06 Freq: Status: Active Protocol: Document 08/04/23 12:47 [facility] (Rec: 08/04/23 18:24 [facility] [id number]) Out-Patient Physical Therapy Visit Information Visit Information Visit Type Treatment Note Visit Note 07/01 Visit Start Time 12:47 Visit Stop Time 13:45 Total Visit Minutes 58 Visit Number 8 Number of RN CHILD Visits 0 PT-OP-B Current Condition Start: 07/05/23 18:06 Freq: Status: Active Protocol: Document 07/06/23 13:31 [facility] (Rec: 07/06/23 14:20 [facility] [id number]) Current Condition History of Current Condition Current Complaints B knee pain and R shoulder pain History of Current Condition Pt reports R shoulder has periodically flared up. She had a MRI about 8 years ago, which said she had a tear in her RC and a bone spur and a bicep tear. Periodically when we moves wrong, she gets pain and it can tiake a while to go away. She mowed her lawn in early May (not self propelled ) and it aggrevated her R>L shoulder and it started to get better about 3 weeks ago. Recently the bicep gets really 'hard and is creating a lot of pull and stress up neck to base of skull which is new. The pain used to be sharpness on the top on the shoulder w/ reaching up. When she saw the MD, he did a very aggressive testing and flared it again. She notes it can be a real nagging pain sleeping at night . Reaching up, reaching down to wipe and reaching to wash hair is very painful. She has limited what she does d/t pain . She does have history of neck pain. Laying flat on the bed, pulls in ant shoulder and when laying on L side, the arm collapsing fwd hurts. She is avoiding pulling weeds. Pt reports B knee pain and recently even walking to the mailbox is painful. She feels like knees are like a puppet where each 3 bone moves separately. L knee froze the other day when standing and she had to hold to her friend so she could gently release her knee. B knees are problem but L is worse than R. She has seen ortho who is talking about TKA. She had 2 tours set to go where there would be a lot of walking and she knew that would be too much pain. Pt reports she started having falls where her knee collapsed when she was doing yard maintence a few years ago. She never really hurt herself but it hasn't happened often but it happened more in the past few years. Treatment Goals Patient/Caregiver Goals Be able to do ADLs w/o pain, be able to vacuum, be able to go for walks without inc pain PT-OP-C Subjective Start: 07/05/23 18:06 Freq: Status: Active Protocol: Document 08/04/23 12:47 [facility] (Rec: 08/04/23 18:24 [facility] [id number]) OP-PT Subjective Patient Comments Patient Comments Pt reports this AM she washed and curled her hair and that just takes a lot out of her. It typically hits about 30 min after this acivity for exercises. She feels like something else besides the 2 old injuries is going on in R shoulder. PT-OP-D Balance Start: 07/05/23 18:06 Freq: Status: Active Protocol: Document 07/06/23 13:31 [facility] (Rec: 07/06/23 14:20 [facility] [id number]) Balance Tests Single Limb Standing Single Limb- Right >30 sec but leans to R and uses UEs Single Limb- Left 20 sec but leans to L and uses UEs PT-OP-G Mobility & Gait Start: 07/05/23 18:06 Freq: Status: Active Protocol: Document 07/06/23 13:31 [facility] (Rec: 07/06/23 14:20 [facility] [id number]) OP Gait Assessment Comments Gait Comments pt has harder impact onto LLE and leans over LLE in stance, occ RLE add PT-OP-J Posture/Palpation/Skin Start: 07/05/23 18:06 Freq: Status: Active Protocol: Document 07/06/23 13:31 [facility] (Rec: 07/06/23 14:20 [facility] [id number]) Posture Evaluation [facility] Postural Classification System Eddie Postural Classifications Posterior/Anterior Comments Posture Comments Fwd head and rounded shoulders PT-OP-K Range of Motion Start: 07/05/23 18:06 Freq: Status: Active Protocol: Document 07/08/23 13:38 [facility] (Rec: 07/08/23 15:48 [facility] [id number]) Cervical Spine Range of Motion Cervical Spine Active Degrees Flexion 64 Extension 42 Rotation Left 71 Rotation Right 62 Lateral Flexion Left 32 Lateral Flexion Right 17 Comments pull post flex, pull ant w/ext , discomfort in R w/B SB PT-OP-L Special Tests Start: 07/05/23 18:06 Freq: Status: Active Protocol: Document 07/08/23 13:38 [facility] (Rec: 07/08/23 15:48 [facility] [id number]) Special Tests Neural Special Tests- Upper Body Median Nerve Tension Test Results positive R Radial Nerve Tension Test Results pos R Ulnar Nerve Tension Test Results pos R PT-OP-M Strength Start: 07/05/23 18:06 Freq: Status: Active Protocol: Document 07/08/23 13:38 [facility] (Rec: 07/08/23 15:48 [facility] [id number]) Hip Strength Hip Manual Muscle Testing Right Extension (S1) 3 Fair Abduction 3 Fair Left Extension (S1) 3 Fair Abduction 3 Fair PT-OP-Q Treatments Start: 07/05/23 18:06 Freq: Status: Active Protocol: Document 08/04/23 12:47 [facility] (Rec: 08/04/23 18:24 [facility] [id number]) Manual Therapy Treatment Soft Tissue Mobilization post Body Location R lats, teres & subscap Mobilization Type Sustained Pressure Intensity/Depth Moderate Comments w/PROM flex superior Body Location R UT, LS, scalenes & SCM Mobilization Type Rolling Intensity/Depth Moderate Body Position Supine pec Body Location R pec major and minor Mobilization Type Rolling,Sustained Pressure Intensity/Depth Moderate Joint Mobilizations ribs Comments caual rib 1 FM GH Grade II Comments R post translation & lat gapping FM Self-Care/Home Management Treatment Education Other Education 8 min: discussion re: seeing an ortho as another option as they may be able to do an injection or something more to help w/pain. edu re: doing seated table slides as those will likely be a less painful exercise. discussed option of trying tape. PT-OP-R Modalities Start: 07/05/23 18:06 Freq: Status: Active Protocol: Document 08/04/23 12:47 [facility] (Rec: 08/04/23 18:24 [facility] [id number]) Hot Pack/Cold Pack Treatment Cold Pack Location R shoulder Patient Position Supine Treatment Duration (minutes) 15 Comments bolster under knees PT-OP-T Assessment and Plan Start: 07/05/23 18:06 Freq: Status: Active Protocol: Document 08/04/23 12:47 [facility] (Rec: 08/04/23 18:24 [facility] [id number]) Physical Therapy Assessment Goals activities Short Term Goal (STG) Pt will be able to lay in bed comfortably and sleep w/o inc pain in shoulde ro knees STG Duration 08/22 Psychologist Private Practice Goal (LTG) Pt will be able to return to vacumming and gardening tasks w/o inc B knee or R shoulder pain greater than 2/10 LTG Duration 09/28 ROM Short Term Goal (STG) Pt will improve AROM flex to at least 110 deg and abd to at least 90 deg STG Duration 08/22 Psychologist Private Practice Goal (LTG) Pt will have AROM equal to that of LUE to allow for ADLs w/o pain including dressing, bathing and doing hair. LTG Duration 09/28/23 quick dash Impairment 61.4 Short Term Goal (STG) Pt will improve score to no higher than 41 to show improved functional ability. STG Duration 08/22 Psychologist Private Practice Goal (LTG) Pt will improve score to no higher than 20 to show improved functional ability. LTG Duration 09/28/23 LEFS Impairment 30/80 Short Term Goal (STG) Pt will improve score to at least 40/80 to show improved functional ability w/daily tasks. STG Duration 08/22/23 [facility] Goal (LTG) Pt iwll improve score to at least 55/80 to show improved functional ability w/daily tasks. LTG Duration 09/28/23 Assessment Summary Assessment Pt initially would not allow passive flex past about 100 deg and improved to about 135 after manual and improved IR from about 10 deg to about 30 deg after manual. Physical Therapy Plan Frequency and Duration Frequency of Treatment 2x/Week Duration of treatment (weeks) 12 Plan of Care Start Date 07/06/23 Plan of Care End Date 09/28/23 Next Visit Focus/Plan Next Note Type Progress Note Next Visit Plan R shoulder taping, cont to try GH mobs
--- NOTE | 2023-08-05 12:49 | PT.OTN ---
Current Diagnoses Pain in right shoulder (08/05/23) Pain in right knee (08/05/23) Pain in left knee (08/05/23) Cervicalgia (08/05/23) Muscle weakness (generalized) (08/05/23) Difficulty in walking, not elsewhere classified (08/05/23) Abnormal posture (08/05/23) Strain of muscle(s) and tendon(s) of the rotator cuff of right shoulder, subsequent encounter (08/05/23) Physical Therapy Treatment Note PT-OP-A Visit Information Start: 07/05/23 18:06 Freq: Status: Active Protocol: Document 08/05/23 10:05 [facility] (Rec: 08/05/23 12:49 [facility] [id number]) Out-Patient Physical Therapy Visit Information Visit Information Visit Type Progress Note Visit Note 12/01 Visit Start Time 10:05 Visit Number 9 Number of LPN INSTRUCTOR Visits 0 PT-OP-B Current Condition Start: 07/05/23 18:06 Freq: Status: Active Protocol: Document 07/06/23 13:31 [facility] (Rec: 07/06/23 14:20 [facility] [id number]) Current Condition History of Current Condition Current Complaints B knee pain and R shoulder pain History of Current Condition Pt reports R shoulder has periodically flared up. She had a MRI about 8 years ago, which said she had a tear in her RC and a bone spur and a bicep tear. Periodically when we moves wrong, she gets pain and it can tiake a while to go away. She mowed her lawn in early May (not self propelled ) and it aggrevated her R>L shoulder and it started to get better about 3 weeks ago. Recently the bicep gets really 'hard and is creating a lot of pull and stress up neck to base of skull which is new. The pain used to be sharpness on the top on the shoulder w/ reaching up. When she saw the MD, he did a very aggressive testing and flared it again. She notes it can be a real nagging pain sleeping at night . Reaching up, reaching down to wipe and reaching to wash hair is very painful. She has limited what she does d/t pain . She does have history of neck pain. Laying flat on the bed, pulls in ant shoulder and when laying on L side, the arm collapsing fwd hurts. She is avoiding pulling weeds. Pt reports B knee pain and recently even walking to the mailbox is painful. She feels like knees are like a puppet where each 3 bone moves separately. L knee froze the other day when standing and she had to hold to her friend so she could gently release her knee. B knees are problem but L is worse than R. She has seen ortho who is talking about TKA. She had 2 tours set to go where there would be a lot of walking and she knew that would be too much pain. Pt reports she started having falls where her knee collapsed when she was doing yard maintence a few years ago. She never really hurt herself but it hasn't happened often but it happened more in the past few years. Treatment Goals Patient/Caregiver Goals Be able to do ADLs w/o pain, be able to vacuum, be able to go for walks without inc pain PT-OP-C Subjective Start: 07/05/23 18:06 Freq: Status: Active Protocol: Document 08/05/23 10:05 [facility] (Rec: 08/05/23 12:49 [facility] [id number]) OP-PT Subjective Patient Comments Patient Comments Pt reports ached all night in R shoulder and had difficulty w/positioning. Pt did Virool 1/4 mile loop and it felt okay. The less knee felt a little loose PT-OP-D Balance Start: 07/05/23 18:06 Freq: Status: Active Protocol: Document 07/06/23 13:31 [facility] (Rec: 07/06/23 14:20 [facility] [id number]) Balance Tests Single Limb Standing Single Limb- Right >30 sec but leans to R and uses UEs Single Limb- Left 20 sec but leans to L and uses UEs PT-OP-G Mobility & Gait Start: 07/05/23 18:06 Freq: Status: Active Protocol: Document 07/06/23 13:31 [facility] (Rec: 07/06/23 14:20 [facility] [id number]) OP Gait Assessment Comments Gait Comments pt has harder impact onto LLE and leans over LLE in stance, occ RLE add PT-OP-J Posture/Palpation/Skin Start: 07/05/23 18:06 Freq: Status: Active Protocol: Document 07/06/23 13:31 [facility] (Rec: 07/06/23 14:20 [facility] [id number]) Posture Evaluation [facility] Postural Classification System [facility] Postural Classifications Posterior/Anterior Comments Posture Comments Fwd head and rounded shoulders PT-OP-K Range of Motion Start: 07/05/23 18:06 Freq: Status: Active Protocol: Document 08/05/23 10:05 [facility] (Rec: 08/05/23 12:49 [facility] [id number]) Shoulder Goniometric Range of Motion Shoulder Right Active Flexion 87 Extension 48 Abduction 70 External Rotation at 0 degrees Abduction 52 Internal Rotation Behind Back (text) L5 PT-OP-L Special Tests Start: 07/05/23 18:06 Freq: Status: Active Protocol: Document 07/08/23 13:38 [facility] (Rec: 07/08/23 15:48 [facility] [id number]) Special Tests Neural Special Tests- Upper Body Median Nerve Tension Test Results positive R Radial Nerve Tension Test Results pos R Ulnar Nerve Tension Test Results pos R PT-OP-M Strength Start: 07/05/23 18:06 Freq: Status: Active Protocol: Document 07/08/23 13:38 [facility] (Rec: 07/08/23 15:48 [facility] [id number]) Hip Strength Hip Manual Muscle Testing Right Extension (S1) 3 Fair Abduction 3 Fair Left Extension (S1) 3 Fair Abduction 3 Fair PT-OP-Q Treatments Start: 07/05/23 18:06 Freq: Status: Active Protocol: Document 08/05/23 10:05 [facility] (Rec: 08/05/23 12:49 [facility] [id number]) Manual Therapy Treatment Soft Tissue Mobilization quad Body Location L patella tendon & lat quad Mobilization Type Rolling Joint Mobilizations tib fib Joint caudal and AP FM L tibfem Comments AP femur, PA tibia, lat femur, med tib FM patellofemoral Joint sup, inf, med Self-Care/Home Management Treatment Education Other Education 8 min: review discussion re: seeing an ortho as another option as they may be able to do an injection or something more to help w/pain as PN showed small progress w/ shoulder. edu on monitro skin w/tape and to take off in 5 days or if irritates skin. okay to shower. discussion on knee braces and edu that one the there is a hole for patella is bets but sometimes combersome so taping may be better PT-OP-R Modalities Start: 07/05/23 18:06 Freq: Status: Active Protocol: Document 08/04/23 12:47 [facility] (Rec: 08/04/23 18:24 [facility] [id number]) Hot Pack/Cold Pack Treatment Cold Pack Location R shoulder Patient Position Supine Treatment Duration (minutes) 15 Comments bolster under knees PT-OP-T Assessment and Plan Start: 07/05/23 18:06 Freq: Status: Active Protocol: Document 08/05/23 10:05 [facility] (Rec: 08/05/23 12:49 [facility] [id number]) Physical Therapy Assessment Goals activities Short Term Goal (STG) Pt will be able to lay in bed comfortably and sleep w/o inc pain in shoulde ro knees 08/05-last night was uncomfortable d/t shoulder. Every other night seems to have issues w/shoulder sleeping; knees okay STG Duration 08/22 Leather Craftsman Goal (LTG) Pt will be able to return to vacumming and gardening tasks w/o inc B knee or R shoulder pain greater than 2/10 08/05-not vacuuming. She did ok w/pulling weeds but didn't have to do any overhead activity LTG Duration 09/28 ROM Short Term Goal (STG) Pt will improve AROM flex to at least 110 deg and abd to at least 90 deg 08/05-mild improvement in AROM; improved PRM STG Duration 08/22 Leather Craftsman Goal (LTG) Pt will have AROM equal to that of LUE to allow for ADLs w/o pain including dressing, bathing and doing hair. LTG Duration 09/28/23 quick dash Impairment 61.4 Short Term Goal (STG) Pt will improve score to no higher than 41 to show improved functional ability. 08/05-60-.2 STG Duration 08/22 Leather Craftsman Goal (LTG) Pt will improve score to no higher than 20 to show improved functional ability. LTG Duration 09/28/23 LEFS Impairment 30/80 Short Term Goal (STG) Pt will improve score to at least 40/80 to show improved functional ability w/daily tasks. 08/05/36/80 STG Duration 08/22/23 Leather Craftsman Goal (LTG) Pt iwll improve score to at least 55/80 to show improved functional ability w/daily tasks. LTG Duration 09/28/23 Assessment Summary Assessment Focus has primarily been on R shoulder as that was pts main concern. She has made small improvements witht his, and has been compliant w/HEP. Pt encouraged to pursue orthopedic consult at this time as progress ahs been slow . She has focused mroe on UE than LE exercsies at home, so no significant progress seen w /LEs. Plan to transition to more work on LEs to improve knee pain. Cont PT to wrok on B knee paina nd R shoulder pain. Physical Therapy Plan Frequency and Duration Frequency of Treatment 2x/Week Duration of treatment (weeks) 12 Plan of Care Start Date 07/06/23 Plan of Care End Date 09/28/23 Therapeutic Interventions Therapeutic Interventions Balance Training,Gait Training ,Home Exercise Program,Joint Mobilizations,Manual Therapy, Neuromuscular Re-education, Orthotic/Prosthetic Management ,Patient/Caregiver Education, Self-Care/Home Management,Soft Tissue Mobilization,Taping, Therapeutic Activities, Therapeutic Exercises Modalities Cold Pack/Ice Massage,Electric Stimulation,Hot Packs, Infrared Therapy,Iontophoresis ,Traction- Mechanical, Ultrasound Next Visit Focus/Plan Next Note Type Treatment Note Next Visit Plan R shoulder taping, cont to try GH mobs & hip strengthening
--- NOTE | 2023-08-11 13:28 | PT.OTN ---
Current Diagnoses Pain in right shoulder (08/11/23) Pain in right knee (08/11/23) Pain in left knee (08/11/23) Cervicalgia (08/11/23) Muscle weakness (generalized) (08/11/23) Difficulty in walking, not elsewhere classified (08/11/23) Abnormal posture (08/11/23) Strain of muscle(s) and tendon(s) of the rotator cuff of right shoulder, subsequent encounter (08/11/23) Physical Therapy Treatment Note PT-OP-A Visit Information Start: 07/05/23 18:06 Freq: Status: Active Protocol: Document 08/11/23 10:19 [facility] (Rec: 08/11/23 10:58 [facility] [id number]) Out-Patient Physical Therapy Visit Information Visit Information Visit Type Treatment Note Visit Start Time 10:06 Visit Stop Time 10:55 Visit Number 49 Number of HAND DECORATOR Visits 1 PT-OP-B Current Condition Start: 07/05/23 18:06 Freq: Status: Active Protocol: Document 07/06/23 13:31 [facility] (Rec: 07/06/23 14:20 [facility] [id number]) Current Condition History of Current Condition Current Complaints B knee pain and R shoulder pain History of Current Condition Pt reports R shoulder has periodically flared up. She had a MRI about 8 years ago, which said she had a tear in her RC and a bone spur and a bicep tear. Periodically when we moves wrong, she gets pain and it can tiake a while to go away. She mowed her lawn in early May (not self propelled ) and it aggrevated her R>L shoulder and it started to get better about 3 weeks ago. Recently the bicep gets really 'hard and is creating a lot of pull and stress up neck to base of skull which is new. The pain used to be sharpness on the top on the shoulder w/ reaching up. When she saw the MD, he did a very aggressive testing and flared it again. She notes it can be a real nagging pain sleeping at night . Reaching up, reaching down to wipe and reaching to wash hair is very painful. She has limited what she does d/t pain . She does have history of neck pain. Laying flat on the bed, pulls in ant shoulder and when laying on L side, the arm collapsing fwd hurts. She is avoiding pulling weeds. Pt reports B knee pain and recently even walking to the mailbox is painful. She feels like knees are like a puppet where each 3 bone moves separately. L knee froze the other day when standing and she had to hold to her friend so she could gently release her knee. B knees are problem but L is worse than R. She has seen ortho who is talking about TKA. She had 2 tours set to go where there would be a lot of walking and she knew that would be too much pain. Pt reports she started having falls where her knee collapsed when she was doing yard maintence a few years ago. She never really hurt herself but it hasn't happened often but it happened more in the past few years. Treatment Goals Patient/Caregiver Goals Be able to do ADLs w/o pain, be able to vacuum, be able to go for walks without inc pain PT-OP-C Subjective Start: 07/05/23 18:06 Freq: Status: Active Protocol: Document 08/11/23 10:19 (Rec: 08/11/23 10:58 [id number]) OP-PT Subjective Patient Comments Patient Comments Pt reports her shoulder was really sore the first 3 days after taping, eased up on the 4th day. PT-OP-D Balance Start: 07/05/23 18:06 Freq: Status: Active Protocol: Document 07/06/23 13:31 [facility] (Rec: 07/06/23 14:20 [facility] [id number]) Balance Tests Single Limb Standing Single Limb- Right >30 sec but leans to R and uses UEs Single Limb- Left 20 sec but leans to L and uses UEs PT-OP-G Mobility & Gait Start: 07/05/23 18:06 Freq: Status: Active Protocol: Document 07/06/23 13:31 [facility] (Rec: 07/06/23 14:20 [facility] [id number]) OP Gait Assessment Comments Gait Comments pt has harder impact onto LLE and leans over LLE in stance, occ RLE add PT-OP-J Posture/Palpation/Skin Start: 07/05/23 18:06 Freq: Status: Active Protocol: Document 07/06/23 13:31 [facility] (Rec: 07/06/23 14:20 [facility] [id number]) Posture Evaluation [facility] Postural Classification System [facility] Postural Classifications Posterior/Anterior Comments Posture Comments Fwd head and rounded shoulders PT-OP-K Range of Motion Start: 07/05/23 18:06 Freq: Status: Active Protocol: Document 08/05/23 10:05 [facility] (Rec: 08/05/23 12:49 [facility] [id number]) Shoulder Goniometric Range of Motion Shoulder Right Active Flexion 87 Extension 48 Abduction 70 External Rotation at 0 degrees Abduction 52 Internal Rotation Behind Back (text) L5 PT-OP-L Special Tests Start: 07/05/23 18:06 Freq: Status: Active Protocol: Document 07/08/23 13:38 [facility] (Rec: 07/08/23 15:48 [facility] [id number]) Special Tests Neural Special Tests- Upper Body Median Nerve Tension Test Results positive R Radial Nerve Tension Test Results pos R Ulnar Nerve Tension Test Results pos R PT-OP-M Strength Start: 07/05/23 18:06 Freq: Status: Active Protocol: Document 07/08/23 13:38 [facility] (Rec: 07/08/23 15:48 [facility] [id number]) Hip Strength Hip Manual Muscle Testing Right Extension (S1) 3 Fair Abduction 3 Fair Left Extension (S1) 3 Fair Abduction 3 Fair PT-OP-Q Treatments Start: 07/05/23 18:06 Freq: Status: Active Protocol: Document 08/11/23 10:19 [facility] (Rec: 08/11/23 10:58 [facility] [id number]) Cardio Equipment Recumbent Elliptical (Biodex) Duration (Minutes) 5 Resistance 4 Seat Position 7 Therapeutic Exercises Standing Exercises Hip Ext Side bilateral Reps/Minutes @ rail Comments cues for compensations hip abd Standing Exercise Name alt Side bilateral Equipment Used Green Band Reps/Minutes 10 Comments cues no lean sit to stand Side bilateral Resistance Level 3 Green Reps/Minutes 10 Comments w/band around knees, cues for eccentric control Manual Therapy Treatment Soft Tissue Mobilization superior Body Location R UT, LS, scalenes & SCM Mobilization Type Rolling Intensity/Depth Moderate Body Position Supine Joint Mobilizations GH Grade II Comments R post translation & lat gapping FM Self-Care/Home Management Treatment Education Patient Education Safety Other Education 8 min: Reviewed Kinesio Tape. Educated patient on skin protection, max 5 days of taping as long as there are no adverse reactions prior, and importance of time for the skin to breathe between taping . Removal of Ktape/education on correct removal of the tape to protect skin. PT-OP-R Modalities Start: 07/05/23 18:06 Freq: Status: Active Protocol: Document 08/11/23 10:19 [facility] (Rec: 08/11/23 10:58 [id number]) Hot Pack/Cold Pack Treatment Cold Pack Location R shoulder, L knee Patient Position Supine Treatment Duration (minutes) 10 Comments bolster under knees PT-OP-T Assessment and Plan Start: 07/05/23 18:06 Freq: Status: Active Protocol: Document 08/11/23 10:19 [facility] (Rec: 08/11/23 10:58 [id number]) Physical Therapy Assessment Goals activities Short Term Goal (STG) Pt will be able to lay in bed comfortably and sleep w/o inc pain in shoulde ro knees 08/05-last night was uncomfortable d/t shoulder. Every other night seems to have issues w/shoulder sleeping; knees okay STG Duration 08/22 [employer] Tender [employer]els Goal (LTG) Pt will be able to return to vacumming and gardening tasks w/o inc B knee or R shoulder pain greater than 2/10 08/05-not vacuuming. She did ok w/pulling weeds but didn't have to do any overhead activity LTG Duration 09/28 ROM Short Term Goal (STG) Pt will improve AROM flex to at least 110 deg and abd to at least 90 deg 08/05-mild improvement in AROM; improved PRM STG Duration 08/22 Halfway Goal (LTG) Pt will have AROM equal to that of LUE to allow for ADLs w/o pain including dressing, bathing and doing hair. LTG Duration 09/28/23 quick dash Impairment 61.4 Short Term Goal (STG) Pt will improve score to no higher than 41 to show improved functional ability. 08/05-60-.2 STG Duration 08/22 Halfway Goal (LTG) Pt will improve score to no higher than 20 to show improved functional ability. LTG Duration 09/28/23 LEFS Impairment 30/80 Short Term Goal (STG) Pt will improve score to at least 40/80 to show improved functional ability w/daily tasks. 08/05/36/80 STG Duration 08/22/23 Halfway Goal (LTG) Pt iwll improve score to at least 55/80 to show improved functional ability w/daily tasks. LTG Duration 09/28/23 Assessment Summary Assessment Focused on LE strengthening this date, tolerated well with minimal c/o of bilateral knee pain during standing strength exercises. Pt reports she has not been doing as much with her knees d/t her shoulder being more painful. Educated patient on K Tape, see self care. Physical Therapy Plan Frequency and Duration Frequency of Treatment 2x/Week Duration of treatment (weeks) 12 Plan of Care Start Date 07/06/23 Plan of Care End Date 09/28/23 Therapeutic Interventions Therapeutic Interventions Balance Training,Gait Training ,Home Exercise Program,Joint Mobilizations,Manual Therapy, Neuromuscular Re-education, Orthotic/Prosthetic Management ,Patient/Caregiver Education, Self-Care/Home Management,Soft Tissue Mobilization,Taping, Therapeutic Activities, Therapeutic Exercises Modalities Cold Pack/Ice Massage,Electric Stimulation,Hot Packs, Infrared Therapy,Iontophoresis ,Traction- Mechanical, Ultrasound Next Visit Focus/Plan Next Note Type Treatment Note Next Visit Plan R shoulder taping, cont to try GH mobs & hip strengthening
--- NOTE | 2023-08-12 12:14 | PT.OTN ---
Current Diagnoses Pain in right shoulder (08/12/23) Pain in right knee (08/12/23) Pain in left knee (08/12/23) Cervicalgia (08/12/23) Muscle weakness (generalized) (08/12/23) Difficulty in walking, not elsewhere classified (08/12/23) Abnormal posture (08/12/23) Strain of muscle(s) and tendon(s) of the rotator cuff of right shoulder, subsequent encounter (08/12/23) Physical Therapy Treatment Note PT-OP-A Visit Information Start: 07/05/23 18:06 Freq: Status: Active Protocol: Document 08/12/23 11:05 (Rec: 08/12/23 12:14 [id number]) Out-Patient Physical Therapy Visit Information Visit Information Visit Type Treatment Note Visit Start Time 11:01 Visit Stop Time 12:00 Total Visit Minutes 59 Visit Number 11 Number of RN PROGRESSIVE CARE Visits 2 PT-OP-B Current Condition Start: 07/05/23 18:06 Freq: Status: Active Protocol: Document 07/06/23 13:31 [facility] (Rec: 07/06/23 14:20 [facility] [id number]) Current Condition History of Current Condition Current Complaints B knee pain and R shoulder pain History of Current Condition Pt reports R shoulder has periodically flared up. She had a MRI about 8 years ago, which said she had a tear in her RC and a bone spur and a bicep tear. Periodically when we moves wrong, she gets pain and it can tiake a while to go away. She mowed her lawn in early May (not self propelled ) and it aggrevated her R>L shoulder and it started to get better about 3 weeks ago. Recently the bicep gets really 'hard and is creating a lot of pull and stress up neck to base of skull which is new. The pain used to be sharpness on the top on the shoulder w/ reaching up. When she saw the MD, he did a very aggressive testing and flared it again. She notes it can be a real nagging pain sleeping at night . Reaching up, reaching down to wipe and reaching to wash hair is very painful. She has limited what she does d/t pain . She does have history of neck pain. Laying flat on the bed, pulls in ant shoulder and when laying on L side, the arm collapsing fwd hurts. She is avoiding pulling weeds. Pt reports B knee pain and recently even walking to the mailbox is painful. She feels like knees are like a puppet where each 3 bone moves separately. L knee froze the other day when standing and she had to hold to her friend so she could gently release her knee. B knees are problem but L is worse than R. She has seen ortho who is talking about TKA. She had 2 tours set to go where there would be a lot of walking and she knew that would be too much pain. Pt reports she started having falls where her knee collapsed when she was doing yard maintence a few years ago. She never really hurt herself but it hasn't happened often but it happened more in the past few years. Treatment Goals Patient/Caregiver Goals Be able to do ADLs w/o pain, be able to vacuum, be able to go for walks without inc pain PT-OP-C Subjective Start: 07/05/23 18:06 Freq: Status: Active Protocol: Document 08/12/23 11:05 (Rec: 08/12/23 12:14 [id number]) OP-PT Subjective Patient Comments Patient Comments Pt reports shoulder, has been ok, have not asked much of it. Bottom is sore after yesterday. PT-OP-D Balance Start: 07/05/23 18:06 Freq: Status: Active Protocol: Document 07/06/23 13:31 [facility] (Rec: 07/06/23 14:20 [facility] [id number]) Balance Tests Single Limb Standing Single Limb- Right >30 sec but leans to R and uses UEs Single Limb- Left 20 sec but leans to L and uses UEs PT-OP-G Mobility & Gait Start: 07/05/23 18:06 Freq: Status: Active Protocol: Document 07/06/23 13:31 [facility] (Rec: 07/06/23 14:20 [facility] [id number]) OP Gait Assessment Comments Gait Comments pt has harder impact onto LLE and leans over LLE in stance, occ RLE add PT-OP-J Posture/Palpation/Skin Start: 07/05/23 18:06 Freq: Status: Active Protocol: Document 07/06/23 13:31 [facility] (Rec: 07/06/23 14:20 [facility] [id number]) Posture Evaluation Eddie Postural Classification System [facility] Postural Classifications Posterior/Anterior Comments Posture Comments Fwd head and rounded shoulders PT-OP-K Range of Motion Start: 07/05/23 18:06 Freq: Status: Active Protocol: Document 08/05/23 10:05 [facility] (Rec: 08/05/23 12:49 [facility] [id number]) Shoulder Goniometric Range of Motion Shoulder Right Active Flexion 87 Extension 48 Abduction 70 External Rotation at 0 degrees Abduction 52 Internal Rotation Behind Back (text) L5 PT-OP-L Special Tests Start: 07/05/23 18:06 Freq: Status: Active Protocol: Document 07/08/23 13:38 [facility] (Rec: 07/08/23 15:48 [facility] [id number]) Special Tests Neural Special Tests- Upper Body Median Nerve Tension Test Results positive R Radial Nerve Tension Test Results pos R Ulnar Nerve Tension Test Results pos R PT-OP-M Strength Start: 07/05/23 18:06 Freq: Status: Active Protocol: Document 07/08/23 13:38 [facility] (Rec: 07/08/23 15:48 [facility] [id number]) Hip Strength Hip Manual Muscle Testing Right Extension (S1) 3 Fair Abduction 3 Fair Left Extension (S1) 3 Fair Abduction 3 Fair PT-OP-Q Treatments Start: 07/05/23 18:06 Freq: Status: Active Protocol: Document 08/12/23 11:05 SW (Rec: 08/12/23 12:14 SW [id number]) Gym Equipment Shuttle Recovery bilateral squat Resistance 50 (1 old, 1 new) Shuttle Recovery Platform Stable Reps/Time 2 x 20 Therapeutic Exercises Supine Exercises shoulder Supine Exercise Name AAROM, Trialed AROM too painful Side right Reps/Minutes 4 Comments self lifting Sitting Exercises Table slides Sitting Exercise Name AAROM shldr abd, scaption, flexion Side right AAROM Sitting Exercise Name FF, Scaption, Abd, IR, ER Side right Equipment Used Table/pillow case Comments Gentle ROM, not pushing into pain Standing Exercises Side Step Standing Exercise Name lateral step Side bilateral Resistance [place] TB above knees Hip Ext Side bilateral Reps/Minutes @ rail Comments cues for compensations hip abd Standing Exercise Name alt Side bilateral Equipment Used Green Band Reps/Minutes 10 Comments cues no lean sit to stand Side bilateral Resistance Level 3 Green Reps/Minutes 10 Comments w/band around knees, cues for eccentric control Manual Therapy Treatment Soft Tissue Mobilization post Body Location R lats, teres & subscap Mobilization Type Sustained Pressure Intensity/Depth Moderate Comments w/PROM flex superior Body Location R UT, LS, scalenes & SCM Mobilization Type Rolling Intensity/Depth Moderate Body Position Supine pec Body Location R pec major and minor Mobilization Type Rolling,Sustained Pressure Intensity/Depth Moderate PT-OP-R Modalities Start: 07/05/23 18:06 Freq: Status: Active Protocol: Document 08/12/23 11:05 (Rec: 08/12/23 12:14 [id number]) Hot Pack/Cold Pack Treatment Cold Pack Location R shoulder, bilat knee Patient Position Supine Treatment Duration (minutes) 15 Comments bolster under knees PT-OP-T Assessment and Plan Start: 07/05/23 18:06 Freq: Status: Active Protocol: Document 08/12/23 11:05 (Rec: 08/12/23 12:14 [id number]) Physical Therapy Assessment Goals activities Short Term Goal (STG) Pt will be able to lay in bed comfortably and sleep w/o inc pain in shoulde ro knees 08/05-last night was uncomfortable d/t shoulder. Every other night seems to have issues w/shoulder sleeping; knees okay STG Duration 08/22 Halfway Goal (LTG) Pt will be able to return to vacumming and gardening tasks w/o inc B knee or R shoulder pain greater than 2/10 08/05-not vacuuming. She did ok w/pulling weeds but didn't have to do any overhead activity LTG Duration 09/28 ROM Short Term Goal (STG) Pt will improve AROM flex to at least 110 deg and abd to at least 90 deg 08/05-mild improvement in AROM; improved PRM STG Duration 08/22 Halfway Goal (LTG) Pt will have AROM equal to that of LUE to allow for ADLs w/o pain including dressing, bathing and doing hair. LTG Duration 09/28/23 quick dash Impairment 61.4 Short Term Goal (STG) Pt will improve score to no higher than 41 to show improved functional ability. 08/05-60-.2 STG Duration 08/22 Halfway Goal (LTG) Pt will improve score to no higher than 20 to show improved functional ability. LTG Duration 09/28/23 LEFS Impairment 30/80 Short Term Goal (STG) Pt will improve score to at least 40/80 to show improved functional ability w/daily tasks. 36/80 STG Duration 08/22/23 Melon Packer Goal (LTG) Pt iwll improve score to at least 55/80 to show improved functional ability w/daily tasks. LTG Duration 09/28/23 Assessment Summary Assessment Pt reports glutes being a little sore today, denies pain in bialteral knees post last session. Continued LE strength , minimal reproduction of symptoms in bilateral knees throughout ther ex. Re visited shldr manual for pain. Continued R shldr AAROM, trialed progress to AROM, pt unable to tolerate at this time. Pt continues to be compliant with HEP, acknowledges she hasn't been as consistant with all of them , continue encouragement. Patient may benefit from continued skilled PT to progress LE strengthening for bilateral knee pain. Physical Therapy Plan Frequency and Duration Frequency of Treatment 2x/Week Duration of treatment (weeks) 12 Plan of Care Start Date 07/06/23 Plan of Care End Date 09/28/23 Therapeutic Interventions Therapeutic Interventions Balance Training,Gait Training ,Home Exercise Program,Joint Mobilizations,Manual Therapy, Neuromuscular Re-education, Orthotic/Prosthetic Management ,Patient/Caregiver Education, Self-Care/Home Management,Soft Tissue Mobilization,Taping, Therapeutic Activities, Therapeutic Exercises Modalities Cold Pack/Ice Massage,Electric Stimulation,Hot Packs, Infrared Therapy,Iontophoresis ,Traction- Mechanical, Ultrasound Next Visit Focus/Plan Next Note Type Treatment Note Next Visit Plan R shoulder taping, cont to try GH mobs & hip strengthening
--- NOTE | 2023-08-12 12:27 | PT.OTN ---
Current Diagnoses Pain in right shoulder (08/12/23) Pain in right knee (08/12/23) Pain in left knee (08/12/23) Cervicalgia (08/12/23) Muscle weakness (generalized) (08/12/23) Difficulty in walking, not elsewhere classified (08/12/23) Abnormal posture (08/12/23) Strain of muscle(s) and tendon(s) of the rotator cuff of right shoulder, subsequent encounter (08/12/23) Physical Therapy Treatment Note PT-OP-A Visit Information Start: 07/05/23 18:06 Freq: Status: Active Protocol: Document 08/12/23 11:05 (Rec: 08/12/23 12:14 [id number]) Out-Patient Physical Therapy Visit Information Visit Information Visit Type Treatment Note Visit Start Time 11:01 Visit Stop Time 12:00 Total Visit Minutes 59 Visit Number 11 Number of HULL INSPECTOR Visits 2 PT-OP-B Current Condition Start: 07/05/23 18:06 Freq: Status: Active Protocol: Document 07/06/23 13:31 [facility] (Rec: 07/06/23 14:20 [facility] [id number]) Current Condition History of Current Condition Current Complaints B knee pain and R shoulder pain History of Current Condition Pt reports R shoulder has periodically flared up. She had a MRI about 8 years ago, which said she had a tear in her RC and a bone spur and a bicep tear. Periodically when we moves wrong, she gets pain and it can tiake a while to go away. She mowed her lawn in early May (not self propelled ) and it aggrevated her R>L shoulder and it started to get better about 3 weeks ago. Recently the bicep gets really 'hard and is creating a lot of pull and stress up neck to base of skull which is new. The pain used to be sharpness on the top on the shoulder w/ reaching up. When she saw the MD, he did a very aggressive testing and flared it again. She notes it can be a real nagging pain sleeping at night . Reaching up, reaching down to wipe and reaching to wash hair is very painful. She has limited what she does d/t pain . She does have history of neck pain. Laying flat on the bed, pulls in ant shoulder and when laying on L side, the arm collapsing fwd hurts. She is avoiding pulling weeds. Pt reports B knee pain and recently even walking to the mailbox is painful. She feels like knees are like a puppet where each 3 bone moves separately. L knee froze the other day when standing and she had to hold to her friend so she could gently release her knee. B knees are problem but L is worse than R. She has seen ortho who is talking about TKA. She had 2 tours set to go where there would be a lot of walking and she knew that would be too much pain. Pt reports she started having falls where her knee collapsed when she was doing yard maintence a few years ago. She never really hurt herself but it hasn't happened often but it happened more in the past few years. Treatment Goals Patient/Caregiver Goals Be able to do ADLs w/o pain, be able to vacuum, be able to go for walks without inc pain PT-OP-C Subjective Start: 07/05/23 18:06 Freq: Status: Active Protocol: Document 08/12/23 11:05 (Rec: 08/12/23 12:14 [id number]) OP-PT Subjective Patient Comments Patient Comments Pt reports shoulder, has been ok, have not asked much of it. Bottom is sore after yesterday. PT-OP-D Balance Start: 07/05/23 18:06 Freq: Status: Active Protocol: Document 07/06/23 13:31 [facility] (Rec: 07/06/23 14:20 [facility] [id number]) Balance Tests Single Limb Standing Single Limb- Right >30 sec but leans to R and uses UEs Single Limb- Left 20 sec but leans to L and uses UEs PT-OP-G Mobility & Gait Start: 07/05/23 18:06 Freq: Status: Active Protocol: Document 07/06/23 13:31 [facility] (Rec: 07/06/23 14:20 [facility] [id number]) OP Gait Assessment Comments Gait Comments pt has harder impact onto LLE and leans over LLE in stance, occ RLE add PT-OP-J Posture/Palpation/Skin Start: 07/05/23 18:06 Freq: Status: Active Protocol: Document 07/06/23 13:31 [facility] (Rec: 07/06/23 14:20 [facility] [id number]) Posture Evaluation Eddie Postural Classification System [facility] Postural Classifications Posterior/Anterior Comments Posture Comments Fwd head and rounded shoulders PT-OP-K Range of Motion Start: 07/05/23 18:06 Freq: Status: Active Protocol: Document 08/05/23 10:05 [facility] (Rec: 08/05/23 12:49 [facility] [id number]) Shoulder Goniometric Range of Motion Shoulder Right Active Flexion 87 Extension 48 Abduction 70 External Rotation at 0 degrees Abduction 52 Internal Rotation Behind Back (text) L5 PT-OP-L Special Tests Start: 07/05/23 18:06 Freq: Status: Active Protocol: Document 07/08/23 13:38 [facility] (Rec: 07/08/23 15:48 [facility] [id number]) Special Tests Neural Special Tests- Upper Body Median Nerve Tension Test Results positive R Radial Nerve Tension Test Results pos R Ulnar Nerve Tension Test Results pos R PT-OP-M Strength Start: 07/05/23 18:06 Freq: Status: Active Protocol: Document 07/08/23 13:38 [facility] (Rec: 07/08/23 15:48 [facility] [id number]) Hip Strength Hip Manual Muscle Testing Right Extension (S1) 3 Fair Abduction 3 Fair Left Extension (S1) 3 Fair Abduction 3 Fair PT-OP-Q Treatments Start: 07/05/23 18:06 Freq: Status: Active Protocol: Document 08/12/23 11:05 SW (Rec: 08/12/23 12:14 SW [id number]) Gym Equipment Shuttle Recovery bilateral squat Resistance 50 (1 old, 1 new) Shuttle Recovery Platform Stable Reps/Time 2 x 20 Therapeutic Exercises Supine Exercises shoulder Supine Exercise Name AAROM, Trialed AROM too painful Side right Reps/Minutes 4 Comments self lifting Sitting Exercises Table slides Sitting Exercise Name AAROM shldr abd, scaption, flexion Side right AAROM Sitting Exercise Name FF, Scaption, Abd, IR, ER Side right Equipment Used Table/pillow case Comments Gentle ROM, not pushing into pain Standing Exercises Side Step Standing Exercise Name lateral step Side bilateral Resistance [place] TB above knees Hip Ext Side bilateral Reps/Minutes @ rail Comments cues for compensations hip abd Standing Exercise Name alt Side bilateral Equipment Used Green Band Reps/Minutes 10 Comments cues no lean sit to stand Side bilateral Resistance Level 3 Green Reps/Minutes 10 Comments w/band around knees, cues for eccentric control Manual Therapy Treatment Soft Tissue Mobilization post Body Location R lats, teres & subscap Mobilization Type Sustained Pressure Intensity/Depth Moderate Comments w/PROM flex superior Body Location R UT, LS, scalenes & SCM Mobilization Type Rolling Intensity/Depth Moderate Body Position Supine pec Body Location R pec major and minor Mobilization Type Rolling,Sustained Pressure Intensity/Depth Moderate PT-OP-R Modalities Start: 07/05/23 18:06 Freq: Status: Active Protocol: Document 08/12/23 11:05 (Rec: 08/12/23 12:14 [id number]) Hot Pack/Cold Pack Treatment Cold Pack Location R shoulder, bilat knee Patient Position Supine Treatment Duration (minutes) 15 Comments bolster under knees PT-OP-T Assessment and Plan Start: 07/05/23 18:06 Freq: Status: Active Protocol: Document 08/12/23 11:05 (Rec: 08/12/23 12:14 [id number]) Physical Therapy Assessment Goals activities Short Term Goal (STG) Pt will be able to lay in bed comfortably and sleep w/o inc pain in shoulde ro knees 08/05-last night was uncomfortable d/t shoulder. Every other night seems to have issues w/shoulder sleeping; knees okay STG Duration 08/22 Senior Living Goal (LTG) Pt will be able to return to vacumming and gardening tasks w/o inc B knee or R shoulder pain greater than 2/10 08/05-not vacuuming. She did ok w/pulling weeds but didn't have to do any overhead activity LTG Duration 09/28 ROM Short Term Goal (STG) Pt will improve AROM flex to at least 110 deg and abd to at least 90 deg 08/05-mild improvement in AROM; improved PRM STG Duration 08/22 Senior Living Goal (LTG) Pt will have AROM equal to that of LUE to allow for ADLs w/o pain including dressing, bathing and doing hair. LTG Duration 09/28/23 quick dash Impairment 61.4 Short Term Goal (STG) Pt will improve score to no higher than 41 to show improved functional ability. 08/05-60-.2 STG Duration 08/22 Senior Living Goal (LTG) Pt will improve score to no higher than 20 to show improved functional ability. LTG Duration 09/28/23 LEFS Impairment 30/80 Short Term Goal (STG) Pt will improve score to at least 40/80 to show improved functional ability w/daily tasks. 36/80 STG Duration 08/22/23 Reinforcer Goal (LTG) Pt iwll improve score to at least 55/80 to show improved functional ability w/daily tasks. LTG Duration 09/28/23 Assessment Summary Assessment Pt had minor reaction, to K tape that was removed yesterday, redness ~ 1 anterior R shoulder, instructed patient to monitor, pt left K tape on for ~ 5 days. Pt reports glutes being a little sore today, denies pain in bialteral knees post last session. Continued LE strength, minimal reproduction of symptoms in bilateral knees throughout ther ex. Re visited shldr manual for pain. Continued R shldr AAROM, trialed progress to AROM, pt unable to tolerate at this time. Pt continues to be compliant with HEP, acknowledges she hasn't been as consistant with all of them , continue encouragement. Patient may benefit from continued skilled PT to progress LE strengthening for bilateral knee pain. Physical Therapy Plan Frequency and Duration Frequency of Treatment 2x/Week Duration of treatment (weeks) 12 Plan of Care Start Date 07/06/23 Plan of Care End Date 09/28/23 Therapeutic Interventions Therapeutic Interventions Balance Training,Gait Training ,Home Exercise Program,Joint Mobilizations,Manual Therapy, Neuromuscular Re-education, Orthotic/Prosthetic Management ,Patient/Caregiver Education, Self-Care/Home Management,Soft Tissue Mobilization,Taping, Therapeutic Activities, Therapeutic Exercises Modalities Cold Pack/Ice Massage,Electric Stimulation,Hot Packs, Infrared Therapy,Iontophoresis ,Traction- Mechanical, Ultrasound Next Visit Focus/Plan Next Note Type Treatment Note Next Visit Plan R shoulder taping, cont to try GH mobs & hip strengthening
--- NOTE | 2023-08-18 13:00 | PT.OTN ---
Current Diagnoses Pain in right shoulder (08/18/23) Pain in right knee (08/18/23) Pain in left knee (08/18/23) Cervicalgia (08/18/23) Muscle weakness (generalized) (08/18/23) Difficulty in walking, not elsewhere classified (08/18/23) Abnormal posture (08/18/23) Strain of muscle(s) and tendon(s) of the rotator cuff of right shoulder, subsequent encounter (08/18/23) Physical Therapy Treatment Note PT-OP-A Visit Information Start: 07/05/23 18:06 Freq: Status: Active Protocol: Document 08/18/23 11:51 (Rec: 08/18/23 13:00 [id number]) Out-Patient Physical Therapy Visit Information Visit Information Visit Type Treatment Note Visit Note pt late Visit Start Time 11:49 Visit Stop Time 12:30 Total Visit Minutes 56 Visit Number 12 Number of MACHINE SPRAYER Visits 3 PT-OP-B Current Condition Start: 07/05/23 18:06 Freq: Status: Active Protocol: Document 07/06/23 13:31 [facility] (Rec: 07/06/23 14:20 [facility] [id number]) Current Condition History of Current Condition Current Complaints B knee pain and R shoulder pain History of Current Condition Pt reports R shoulder has periodically flared up. She had a MRI about 8 years ago, which said she had a tear in her RC and a bone spur and a bicep tear. Periodically when we moves wrong, she gets pain and it can tiake a while to go away. She mowed her lawn in early May (not self propelled ) and it aggrevated her R>L shoulder and it started to get better about 3 weeks ago. Recently the bicep gets really 'hard and is creating a lot of pull and stress up neck to base of skull which is new. The pain used to be sharpness on the top on the shoulder w/ reaching up. When she saw the MD, he did a very aggressive testing and flared it again. She notes it can be a real nagging pain sleeping at night . Reaching up, reaching down to wipe and reaching to wash hair is very painful. She has limited what she does d/t pain . She does have history of neck pain. Laying flat on the bed, pulls in ant shoulder and when laying on L side, the arm collapsing fwd hurts. She is avoiding pulling weeds. Pt reports B knee pain and recently even walking to the mailbox is painful. She feels like knees are like a puppet where each 3 bone moves separately. L knee froze the other day when standing and she had to hold to her friend so she could gently release her knee. B knees are problem but L is worse than R. She has seen ortho who is talking about TKA. She had 2 tours set to go where there would be a lot of walking and she knew that would be too much pain. Pt reports she started having falls where her knee collapsed when she was doing yard maintence a few years ago. She never really hurt herself but it hasn't happened often but it happened more in the past few years. Treatment Goals Patient/Caregiver Goals Be able to do ADLs w/o pain, be able to vacuum, be able to go for walks without inc pain PT-OP-C Subjective Start: 07/05/23 18:06 Freq: Status: Active Protocol: Document 08/18/23 11:51 (Rec: 08/18/23 13:00 [id number]) OP-PT Subjective Patient Comments Patient Comments Pt reports alergies today, feels appropriate for session today. Pt reports saw Ortho on Wednesday, reported arthritis present but still waiting on MRI results. PT-OP-D Balance Start: 07/05/23 18:06 Freq: Status: Active Protocol: Document 07/06/23 13:31 [facility] (Rec: 07/06/23 14:20 [facility] [id number]) Balance Tests Single Limb Standing Single Limb- Right >30 sec but leans to R and uses UEs Single Limb- Left 20 sec but leans to L and uses UEs PT-OP-G Mobility & Gait Start: 07/05/23 18:06 Freq: Status: Active Protocol: Document 07/06/23 13:31 [facility] (Rec: 07/06/23 14:20 [facility] [id number]) OP Gait Assessment Comments Gait Comments pt has harder impact onto LLE and leans over LLE in stance, occ RLE add PT-OP-J Posture/Palpation/Skin Start: 07/05/23 18:06 Freq: Status: Active Protocol: Document 07/06/23 13:31 [facility] (Rec: 07/06/23 14:20 [facility] [id number]) Posture Evaluation [facility] Postural Classification System [facility] Postural Classifications Posterior/Anterior Comments Posture Comments Fwd head and rounded shoulders PT-OP-K Range of Motion Start: 07/05/23 18:06 Freq: Status: Active Protocol: Document 08/05/23 10:05 [facility] (Rec: 08/05/23 12:49 [facility] [id number]) Shoulder Goniometric Range of Motion Shoulder Right Active Flexion 87 Extension 48 Abduction 70 External Rotation at 0 degrees Abduction 52 Internal Rotation Behind Back (text) L5 PT-OP-L Special Tests Start: 07/05/23 18:06 Freq: Status: Active Protocol: Document 07/08/23 13:38 [facility] (Rec: 07/08/23 15:48 [facility] [id number]) Special Tests Neural Special Tests- Upper Body Median Nerve Tension Test Results positive R Radial Nerve Tension Test Results pos R Ulnar Nerve Tension Test Results pos R PT-OP-M Strength Start: 07/05/23 18:06 Freq: Status: Active Protocol: Document 07/08/23 13:38 [facility] (Rec: 07/08/23 15:48 [facility] [id number]) Hip Strength Hip Manual Muscle Testing Right Extension (S1) 3 Fair Abduction 3 Fair Left Extension (S1) 3 Fair Abduction 3 Fair PT-OP-Q Treatments Start: 07/05/23 18:06 Freq: Status: Active Protocol: Document 08/18/23 11:51 SW (Rec: 08/18/23 13:00 SW [id number]) Therapeutic Exercises Supine Exercises shoulder Supine Exercise Name AAROM Side right Reps/Minutes 4 Comments self lifting Sitting Exercises Wand AAROM Sitting Exercise Name Scaption, FF Side right Reps/Minutes x5 Shoulder Iso Sitting Exercise Name IR/ER, Flex/ext, abd Side right Resistance Isometric Equipment Used @ wall Reps/Minutes x20 sec Comments pain free, gentle contraction Pulleys Sitting Exercise Name AAROM FF, Scaption, Abd Side right Equipment Used Pulleys Comments Gentle ROM, not pushing into pain AAROM Sitting Exercise Name FF, Scaption, Abd, IR, ER Side right Equipment Used Table/pillow case Comments Gentle ROM, not pushing into pain Standing Exercises Rows Standing Exercise Name Rows Side bilateral Resistance [place] TB Reps/Minutes 2 x 10 Manual Therapy Treatment Soft Tissue Mobilization post Body Location R lats, teres & subscap Mobilization Type Sustained Pressure Intensity/Depth Moderate Comments w/PROM flex superior Body Location R UT, LS, scalenes & SCM Mobilization Type Rolling Intensity/Depth Moderate Body Position Supine PT-OP-R Modalities Start: 07/05/23 18:06 Freq: Status: Active Protocol: Document 08/18/23 11:51 SW (Rec: 08/18/23 13:00 SW [id number]) Hot Pack/Cold Pack Treatment Cold Pack Location R shoulder, bilat knee Patient Position Supine Treatment Duration (minutes) 15 Comments bolster under knees PT-OP-T Assessment and Plan Start: 07/05/23 18:06 Freq: Status: Active Protocol: Document 08/18/23 11:51 SW (Rec: 08/18/23 13:00 SW [id number]) Physical Therapy Assessment Goals activities Short Term Goal (STG) Pt will be able to lay in bed comfortably and sleep w/o inc pain in shoulde ro knees 08/05-last night was uncomfortable d/t shoulder. Every other night seems to have issues w/shoulder sleeping; knees okay STG Duration 08/22 Sec Reporting Consultant Goal (LTG) Pt will be able to return to vacumming and gardening tasks w/o inc B knee or R shoulder pain greater than 2/10 08/05-not vacuuming. She did ok w/pulling weeds but didn't have to do any overhead activity LTG Duration 09/28 ROM Short Term Goal (STG) Pt will improve AROM flex to at least 110 deg and abd to at least 90 deg 08/05-mild improvement in AROM; improved PRM STG Duration 08/22 Sec Reporting Consultant Goal (LTG) Pt will have AROM equal to that of LUE to allow for ADLs w/o pain including dressing, bathing and doing hair. LTG Duration 09/28/23 quick dash Impairment 61.4 Short Term Goal (STG) Pt will improve score to no higher than 41 to show improved functional ability. 08/05-60-.2 STG Duration 08/22 Sec Reporting Consultant Goal (LTG) Pt will improve score to no higher than 20 to show improved functional ability. LTG Duration 09/28/23 LEFS Impairment 30/80 Short Term Goal (STG) Pt will improve score to at least 40/80 to show improved functional ability w/daily tasks. 36/80 STG Duration 08/22/23 Sec Reporting Consultant Goal (LTG) Pt iwll improve score to at least 55/80 to show improved functional ability w/daily tasks. LTG Duration 09/28/23 Assessment Summary Assessment Pt had apt w/ ortho, waiting on MRI results. Pt shoulder feeling good today. Visited shoulder isometrics today, FF isometrics reproduced pain, corrected patient posture no relief, relieved with rest. Progressed shoulder strength with rows, tolerated well with no pain reproduction, plan to followup on pt tolerance tomorrow. Pt did not tolerate wand ROM exercises well today, able to do pulleys in a gentle pain free range. Plan to visit bilateral knees tomorrow and progress as tolerated. Plan to apply kinesio tape to Left knee, pt reported good feedback. Continued STM prn today, overall patient able to tolerate more exercises in R shoulder with decreased need for manual therapy. Physical Therapy Plan Frequency and Duration Frequency of Treatment 2x/Week Duration of treatment (weeks) 12 Plan of Care Start Date 07/06/23 Plan of Care End Date 09/28/23 Therapeutic Interventions Therapeutic Interventions Balance Training,Gait Training ,Home Exercise Program,Joint Mobilizations,Manual Therapy, Neuromuscular Re-education, Orthotic/Prosthetic Management ,Patient/Caregiver Education, Self-Care/Home Management,Soft Tissue Mobilization,Taping, Therapeutic Activities, Therapeutic Exercises Modalities Cold Pack/Ice Massage,Electric Stimulation,Hot Packs, Infrared Therapy,Iontophoresis ,Traction- Mechanical, Ultrasound Next Visit Focus/Plan Next Note Type Treatment Note Next Visit Plan R shoulder taping, cont to try GH mobs & hip strengthening
--- NOTE | 2023-08-19 12:58 | PT.OTN ---
Current Diagnoses Pain in right shoulder (08/19/23) Pain in right knee (08/19/23) Pain in left knee (08/19/23) Cervicalgia (08/19/23) Muscle weakness (generalized) (08/19/23) Difficulty in walking, not elsewhere classified (08/19/23) Abnormal posture (08/19/23) Strain of muscle(s) and tendon(s) of the rotator cuff of right shoulder, subsequent encounter (08/19/23) Physical Therapy Treatment Note PT-OP-A Visit Information Start: 07/05/23 18:06 Freq: Status: Active Protocol: Document 08/19/23 11:41 (Rec: 08/19/23 12:58 [id number]) Out-Patient Physical Therapy Visit Information Visit Information Visit Type Treatment Note Visit Start Time 11:45 Visit Stop Time 12:45 Total Visit Minutes 60 Visit Number 13 Number of RN CLINICAL REVIEW Visits 4 PT-OP-B Current Condition Start: 07/05/23 18:06 Freq: Status: Active Protocol: Document 07/06/23 13:31 [facility] (Rec: 07/06/23 14:20 [facility] [id number]) Current Condition History of Current Condition Current Complaints B knee pain and R shoulder pain History of Current Condition Pt reports R shoulder has periodically flared up. She had a MRI about 8 years ago, which said she had a tear in her RC and a bone spur and a bicep tear. Periodically when we moves wrong, she gets pain and it can tiake a while to go away. She mowed her lawn in early May (not self propelled ) and it aggrevated her R>L shoulder and it started to get better about 3 weeks ago. Recently the bicep gets really 'hard and is creating a lot of pull and stress up neck to base of skull which is new. The pain used to be sharpness on the top on the shoulder w/ reaching up. When she saw the MD, he did a very aggressive testing and flared it again. She notes it can be a real nagging pain sleeping at night . Reaching up, reaching down to wipe and reaching to wash hair is very painful. She has limited what she does d/t pain . She does have history of neck pain. Laying flat on the bed, pulls in ant shoulder and when laying on L side, the arm collapsing fwd hurts. She is avoiding pulling weeds. Pt reports B knee pain and recently even walking to the mailbox is painful. She feels like knees are like a puppet where each 3 bone moves separately. L knee froze the other day when standing and she had to hold to her friend so she could gently release her knee. B knees are problem but L is worse than R. She has seen ortho who is talking about TKA. She had 2 tours set to go where there would be a lot of walking and she knew that would be too much pain. Pt reports she started having falls where her knee collapsed when she was doing yard maintence a few years ago. She never really hurt herself but it hasn't happened often but it happened more in the past few years. Treatment Goals Patient/Caregiver Goals Be able to do ADLs w/o pain, be able to vacuum, be able to go for walks without inc pain PT-OP-C Subjective Start: 07/05/23 18:06 Freq: Status: Active Protocol: Document 08/19/23 11:41 (Rec: 08/19/23 12:58 [id number]) OP-PT Subjective Patient Comments Patient Comments Pt reports she slept on shoulder wrong and it is really aggravated today, it was ok until she went to go to bed. Thinks she may have a sinus infection, reports she is ok to participate in PT this session. PT-OP-D Balance Start: 07/05/23 18:06 Freq: Status: Active Protocol: Document 07/06/23 13:31 [facility] (Rec: 07/06/23 14:20 [facility] [id number]) Balance Tests Single Limb Standing Single Limb- Right >30 sec but leans to R and uses UEs Single Limb- Left 20 sec but leans to L and uses UEs PT-OP-G Mobility & Gait Start: 07/05/23 18:06 Freq: Status: Active Protocol: Document 07/06/23 13:31 [facility] (Rec: 07/06/23 14:20 [facility] [id number]) OP Gait Assessment Comments Gait Comments pt has harder impact onto LLE and leans over LLE in stance, occ RLE add PT-OP-J Posture/Palpation/Skin Start: 07/05/23 18:06 Freq: Status: Active Protocol: Document 07/06/23 13:31 [facility] (Rec: 07/06/23 14:20 [facility] [id number]) Posture Evaluation [facility] Postural Classification System [facility] Postural Classifications Posterior/Anterior Comments Posture Comments Fwd head and rounded shoulders PT-OP-K Range of Motion Start: 07/05/23 18:06 Freq: Status: Active Protocol: Document 08/05/23 10:05 [facility] (Rec: 08/05/23 12:49 [facility] [id number]) Shoulder Goniometric Range of Motion Shoulder Right Active Flexion 87 Extension 48 Abduction 70 External Rotation at 0 degrees Abduction 52 Internal Rotation Behind Back (text) L5 PT-OP-L Special Tests Start: 07/05/23 18:06 Freq: Status: Active Protocol: Document 07/08/23 13:38 [facility] (Rec: 07/08/23 15:48 [facility] [id number]) Special Tests Neural Special Tests- Upper Body Median Nerve Tension Test Results positive R Radial Nerve Tension Test Results pos R Ulnar Nerve Tension Test Results pos R PT-OP-M Strength Start: 07/05/23 18:06 Freq: Status: Active Protocol: Document 07/08/23 13:38 [facility] (Rec: 07/08/23 15:48 [facility] [id number]) Hip Strength Hip Manual Muscle Testing Right Extension (S1) 3 Fair Abduction 3 Fair Left Extension (S1) 3 Fair Abduction 3 Fair PT-OP-Q Treatments Start: 07/05/23 18:06 Freq: Status: Active Protocol: Document 08/19/23 11:41 SW (Rec: 08/19/23 12:58 SW [id number]) Cardio Equipment Recumbent Elliptical (Biodex) Duration (Minutes) 6 Resistance 4 Seat Position 7 Gym Equipment Shuttle Recovery bilateral squat Resistance 50 (2 teal) Shuttle Recovery Platform Stable Reps/Time 2 x 20 Therapeutic Exercises Supine Exercises bridge Side bilateral Reps/Minutes 2 x 10 Comments cues for segmental lift Standing Exercises Hip Flex Standing Exercise Name Hip flex, knee extension Side bilateral Resistance Green TB above knee Side Step Standing Exercise Name lateral step Side bilateral Resistance Green TB above knees Hip Ext Side bilateral Resistance Green TB Reps/Minutes @ rail Comments cues for compensations hip abd Standing Exercise Name alt Side bilateral Equipment Used Green Band Reps/Minutes 10 Comments cues no lean sit to stand Side bilateral Resistance Level 3 Green Reps/Minutes 10 Comments w/band around knees, cues for eccentric control Manual Therapy Treatment Taping Knee Body Location bilateral knees Treatment Focus Stabilization Type of Tape Kinesio Tape Skin Inspection clean, intact, no redness present Comments educated patient on safety and duration of K tape PT-OP-R Modalities Start: 07/05/23 18:06 Freq: Status: Active Protocol: Document 08/19/23 11:41 SW (Rec: 08/19/23 12:58 [id number]) Hot Pack/Cold Pack Treatment Cold Pack Location R shoulder, bilat knee Patient Position Supine Treatment Duration (minutes) 15 Comments bolster under knees PT-OP-T Assessment and Plan Start: 07/05/23 18:06 Freq: Status: Active Protocol: Document 08/19/23 11:41 SW (Rec: 08/19/23 12:58 [id number]) Physical Therapy Assessment Goals activities Short Term Goal (STG) Pt will be able to lay in bed comfortably and sleep w/o inc pain in shoulde ro knees 08/05-last night was uncomfortable d/t shoulder. Every other night seems to have issues w/shoulder sleeping; knees okay STG Duration 08/22 Grade Foreman Goal (LTG) Pt will be able to return to vacumming and gardening tasks w/o inc B knee or R shoulder pain greater than 2/10 08/05-not vacuuming. She did ok w/pulling weeds but didn't have to do any overhead activity LTG Duration 09/28 ROM Short Term Goal (STG) Pt will improve AROM flex to at least 110 deg and abd to at least 90 deg 08/05-mild improvement in AROM; improved PRM STG Duration 08/22 Chcf Goal (LTG) Pt will have AROM equal to that of LUE to allow for ADLs w/o pain including dressing, bathing and doing hair. LTG Duration 09/28/23 quick dash Impairment 61.4 Short Term Goal (STG) Pt will improve score to no higher than 41 to show improved functional ability. 08/05-60-.2 STG Duration 08/22 Grade Foreman Goal (LTG) Pt will improve score to no higher than 20 to show improved functional ability. LTG Duration 09/28/23 LEFS Impairment 30/80 Short Term Goal (STG) Pt will improve score to at least 40/80 to show improved functional ability w/daily tasks. 36/80 STG Duration 08/22/23 Chcf Goal (LTG) Pt iwll improve score to at least 55/80 to show improved functional ability w/daily tasks. LTG Duration 09/28/23 Assessment Summary Assessment Pt shoulder aggravated today. Treatment focus on bilateral knees and LE strengthening. Pt has been concentrating on her shoulder and has not been as compliant with her LE HEP, continued previous strengthening exercises and progressed resistance with side stepping, patient tolerated well. Pt c/o pain in back with bridges, relieved with cues to segmentally lift and activate glutes prior to ascending. Physical Therapy Plan Frequency and Duration Frequency of Treatment 2x/Week Duration of treatment (weeks) 12 Plan of Care Start Date 07/06/23 Plan of Care End Date 09/28/23 Therapeutic Interventions Therapeutic Interventions Balance Training,Gait Training ,Home Exercise Program,Joint Mobilizations,Manual Therapy, Neuromuscular Re-education, Orthotic/Prosthetic Management ,Patient/Caregiver Education, Self-Care/Home Management,Soft Tissue Mobilization,Taping, Therapeutic Activities, Therapeutic Exercises Modalities Cold Pack/Ice Massage,Electric Stimulation,Hot Packs, Infrared Therapy,Iontophoresis ,Traction- Mechanical, Ultrasound Next Visit Focus/Plan Next Note Type Treatment Note Next Visit Plan cont to try GH mobs & hip strengthening
--- NOTE | 2023-08-25 16:05 | PT.OTN ---
Current Diagnoses Pain in right shoulder (08/25/23) Pain in right knee (08/25/23) Pain in left knee (08/25/23) Cervicalgia (08/25/23) Muscle weakness (generalized) (08/25/23) Difficulty in walking, not elsewhere classified (08/25/23) Abnormal posture (08/25/23) Strain of muscle(s) and tendon(s) of the rotator cuff of right shoulder, subsequent encounter (08/25/23) Physical Therapy Treatment Note PT-OP-A Visit Information Start: 07/05/23 18:06 Freq: Status: Active Protocol: Document 08/25/23 15:15 [facility] (Rec: 08/25/23 16:05 [facility] [id number]) Out-Patient Physical Therapy Visit Information Visit Information Visit Type Treatment Note Visit Start Time 15:16 Visit Stop Time 16:00 Total Visit Minutes 44 Visit Number 14 Number of CLINICAL VETERINARIAN Visits 0 PT-OP-B Current Condition Start: 07/05/23 18:06 Freq: Status: Active Protocol: Document 07/06/23 13:31 [facility] (Rec: 07/06/23 14:20 [facility] [id number]) Current Condition History of Current Condition Current Complaints B knee pain and R shoulder pain History of Current Condition Pt reports R shoulder has periodically flared up. She had a MRI about 8 years ago, which said she had a tear in her RC and a bone spur and a bicep tear. Periodically when we moves wrong, she gets pain and it can tiake a while to go away. She mowed her lawn in early May (not self propelled ) and it aggrevated her R>L shoulder and it started to get better about 3 weeks ago. Recently the bicep gets really 'hard and is creating a lot of pull and stress up neck to base of skull which is new. The pain used to be sharpness on the top on the shoulder w/ reaching up. When she saw the MD, he did a very aggressive testing and flared it again. She notes it can be a real nagging pain sleeping at night . Reaching up, reaching down to wipe and reaching to wash hair is very painful. She has limited what she does d/t pain . She does have history of neck pain. Laying flat on the bed, pulls in ant shoulder and when laying on L side, the arm collapsing fwd hurts. She is avoiding pulling weeds. Pt reports B knee pain and recently even walking to the mailbox is painful. She feels like knees are like a puppet where each 3 bone moves separately. L knee froze the other day when standing and she had to hold to her friend so she could gently release her knee. B knees are problem but L is worse than R. She has seen ortho who is talking about TKA. She had 2 tours set to go where there would be a lot of walking and she knew that would be too much pain. Pt reports she started having falls where her knee collapsed when she was doing yard maintence a few years ago. She never really hurt herself but it hasn't happened often but it happened more in the past few years. Treatment Goals Patient/Caregiver Goals Be able to do ADLs w/o pain, be able to vacuum, be able to go for walks without inc pain PT-OP-C Subjective Start: 07/05/23 18:06 Freq: Status: Active Protocol: Document 08/25/23 15:15 [facility] (Rec: 08/25/23 16:05 [facility] [id number]) OP-PT Subjective Patient Comments Patient Comments pt reports she started augmentum and she has thrown up the first time. Her stomach doens't feel as certain as it should. She hasn't been able to do her exercises a lot. She she not energy between her R shoulder pain and her sinus infection. She has back to back MRIs scheduled for her shoulder and neck for this Wednesday. PT-OP-D Balance Start: 07/05/23 18:06 Freq: Status: Active Protocol: Document 07/06/23 13:31 [facility] (Rec: 07/06/23 14:20 [facility] [id number]) Balance Tests Single Limb Standing Single Limb- Right >30 sec but leans to R and uses UEs Single Limb- Left 20 sec but leans to L and uses UEs PT-OP-G Mobility & Gait Start: 07/05/23 18:06 Freq: Status: Active Protocol: Document 07/06/23 13:31 [facility] (Rec: 07/06/23 14:20 [facility] [id number]) OP Gait Assessment Comments Gait Comments pt has harder impact onto LLE and leans over LLE in stance, occ RLE add PT-OP-J Posture/Palpation/Skin Start: 07/05/23 18:06 Freq: Status: Active Protocol: Document 07/06/23 13:31 [facility] (Rec: 07/06/23 14:20 [facility] [id number]) Posture Evaluation [facility] Postural Classification System [facility] Postural Classifications Posterior/Anterior Comments Posture Comments Fwd head and rounded shoulders PT-OP-K Range of Motion Start: 07/05/23 18:06 Freq: Status: Active Protocol: Document 08/05/23 10:05 [facility] (Rec: 08/05/23 12:49 [facility] [id number]) Shoulder Goniometric Range of Motion Shoulder Right Active Flexion 87 Extension 48 Abduction 70 External Rotation at 0 degrees Abduction 52 Internal Rotation Behind Back (text) L5 PT-OP-L Special Tests Start: 07/05/23 18:06 Freq: Status: Active Protocol: Document 07/08/23 13:38 [facility] (Rec: 07/08/23 15:48 [facility] [id number]) Special Tests Neural Special Tests- Upper Body Median Nerve Tension Test Results positive R Radial Nerve Tension Test Results pos R Ulnar Nerve Tension Test Results pos R PT-OP-M Strength Start: 07/05/23 18:06 Freq: Status: Active Protocol: Document 07/08/23 13:38 [facility] (Rec: 07/08/23 15:48 [facility] [id number]) Hip Strength Hip Manual Muscle Testing Right Extension (S1) 3 Fair Abduction 3 Fair Left Extension (S1) 3 Fair Abduction 3 Fair PT-OP-Q Treatments Start: 07/05/23 18:06 Freq: Status: Active Protocol: Document 08/25/23 15:15 [facility] (Rec: 08/25/23 16:05 [facility] [id number]) Therapeutic Exercises Supine Exercises bridge Side bilateral Reps/Minutes 5x w/o hold; 6 x 5 sec hold Comments cues for segmental lift Standing Exercises stretch Standing Exercise Name gastroc lean fwd Side bilateral Reps/Minutes 30 sec ea Side Step Standing Exercise Name lateral step Side bilateral Resistance Green TB at ankles Reps/Minutes 20ft ea Hip Ext Side bilateral Resistance Green TB Reps/Minutes 2x10 Comments cues for posture and to slow hip abd Standing Exercise Name alt Side bilateral Equipment Used Green Band Reps/Minutes 2x10 Comments cues no lean & foot fwd sit to stand Side bilateral Resistance Level 3 Green Reps/Minutes 15 Comments w/band around knees, cues for eccentric control Manual Therapy Treatment Soft Tissue Mobilization quad Body Location L patella tendon & lat quad Mobilization Type Rolling Joint Mobilizations hip Joint L on axis ER and inf FM Comments manual facilitaiton at end range patellofemoral Joint sup, inf, med L Taping Knee Body Location bilateral knees; Y for med knee glide for patellar suppor Treatment Focus Stabilization Type of Tape Kinesio Tape Skin Inspection clean, intact, no redness present Comments educated patient on safety and duration of K tape PT-OP-R Modalities Start: 07/05/23 18:06 Freq: Status: Active Protocol: Document 08/19/23 11:41 (Rec: 08/19/23 12:58 [id number]) Hot Pack/Cold Pack Treatment Cold Pack Location R shoulder, bilat knee Patient Position Supine Treatment Duration (minutes) 15 Comments bolster under knees PT-OP-T Assessment and Plan Start: 07/05/23 18:06 Freq: Status: Active Protocol: Document 08/25/23 15:15 [facility] (Rec: 08/25/23 16:05 [facility] [id number]) Physical Therapy Assessment Goals activities Short Term Goal (STG) Pt will be able to lay in bed comfortably and sleep w/o inc pain in shoulde ro knees 08/05-last night was uncomfortable d/t shoulder. Every other night seems to have issues w/shoulder sleeping; knees okay STG Duration 08/22 Halfway Goal (LTG) Pt will be able to return to vacumming and gardening tasks w/o inc B knee or R shoulder pain greater than 2/10 08/05-not vacuuming. She did ok w/pulling weeds but didn't have to do any overhead activity LTG Duration 09/28 ROM Short Term Goal (STG) Pt will improve AROM flex to at least 110 deg and abd to at least 90 deg 08/05-mild improvement in AROM; improved PRM STG Duration 08/22 Halfway Goal (LTG) Pt will have AROM equal to that of LUE to allow for ADLs w/o pain including dressing, bathing and doing hair. LTG Duration 09/28/23 quick dash Impairment 61.4 Short Term Goal (STG) Pt will improve score to no higher than 41 to show improved functional ability. 08/05-60-.2 STG Duration 08/22 Halfway Goal (LTG) Pt will improve score to no higher than 20 to show improved functional ability. LTG Duration 09/28/23 LEFS Impairment 30/80 Short Term Goal (STG) Pt will improve score to at least 40/80 to show improved functional ability w/daily tasks. 36/80 STG Duration 08/22/23 Halfway Goal (LTG) Pt iwll improve score to at least 55/80 to show improved functional ability w/daily tasks. LTG Duration 09/28/23 Assessment Summary Assessment Pt educated on the importance of hip and ankle motion and strength for knee tracking and focus on imprvoing hip track to imrpove pt ability to ER w/ sit to stand as even w/max ceus, pt has difficulty w/this . She requiers ceus for posture and position w/ standing leg exercises. less cues for bridges needed today Physical Therapy Plan Frequency and Duration Frequency of Treatment 2x/Week Duration of treatment (weeks) 12 Plan of Care Start Date 07/06/23 Plan of Care End Date 09/28/23 Next Visit Focus/Plan Next Note Type Treatment Note Next Visit Plan focus on knee pain and working on hip and LE stability
--- NOTE | 2023-09-01 16:57 | PT.OTN ---
Current Diagnoses Pain in right shoulder (09/01/23) Pain in right knee (09/01/23) Pain in left knee (09/01/23) Cervicalgia (09/01/23) Muscle weakness (generalized) (09/01/23) Difficulty in walking, not elsewhere classified (09/01/23) Abnormal posture (09/01/23) Strain of muscle(s) and tendon(s) of the rotator cuff of right shoulder, subsequent encounter (09/01/23) Physical Therapy Treatment Note PT-OP-A Visit Information Start: 07/05/23 18:06 Freq: Status: Active Protocol: Document 09/01/23 13:06 (Rec: 09/01/23 15:39 [id number]) Out-Patient Physical Therapy Visit Information Visit Information Visit Type Treatment Note Visit Start Time 13:02 Visit Stop Time 13:55 Total Visit Minutes 53 Visit Number 15 Number of PRODUCTION SUPPLY EQUIPMENT TENDER Visits 1 PT-OP-B Current Condition Start: 07/05/23 18:06 Freq: Status: Active Protocol: Document 07/06/23 13:31 [facility] (Rec: 07/06/23 14:20 [facility] [id number]) Current Condition History of Current Condition Current Complaints B knee pain and R shoulder pain History of Current Condition Pt reports R shoulder has periodically flared up. She had a MRI about 8 years ago, which said she had a tear in her RC and a bone spur and a bicep tear. Periodically when we moves wrong, she gets pain and it can tiake a while to go away. She mowed her lawn in early May (not self propelled ) and it aggrevated her R>L shoulder and it started to get better about 3 weeks ago. Recently the bicep gets really 'hard and is creating a lot of pull and stress up neck to base of skull which is new. The pain used to be sharpness on the top on the shoulder w/ reaching up. When she saw the MD, he did a very aggressive testing and flared it again. She notes it can be a real nagging pain sleeping at night . Reaching up, reaching down to wipe and reaching to wash hair is very painful. She has limited what she does d/t pain . She does have history of neck pain. Laying flat on the bed, pulls in ant shoulder and when laying on L side, the arm collapsing fwd hurts. She is avoiding pulling weeds. Pt reports B knee pain and recently even walking to the mailbox is painful. She feels like knees are like a puppet where each 3 bone moves separately. L knee froze the other day when standing and she had to hold to her friend so she could gently release her knee. B knees are problem but L is worse than R. She has seen ortho who is talking about TKA. She had 2 tours set to go where there would be a lot of walking and she knew that would be too much pain. Pt reports she started having falls where her knee collapsed when she was doing yard maintence a few years ago. She never really hurt herself but it hasn't happened often but it happened more in the past few years. Treatment Goals Patient/Caregiver Goals Be able to do ADLs w/o pain, be able to vacuum, be able to go for walks without inc pain PT-OP-C Subjective Start: 07/05/23 18:06 Freq: Status: Active Protocol: Document 09/01/23 13:06 (Rec: 09/01/23 15:39 [id number]) OP-PT Subjective Patient Comments Patient Comments Pt reports she is doing ok with all things considered. PT-OP-D Balance Start: 07/05/23 18:06 Freq: Status: Active Protocol: Document 07/06/23 13:31 [facility] (Rec: 07/06/23 14:20 [facility] [id number]) Balance Tests Single Limb Standing Single Limb- Right >30 sec but leans to R and uses UEs Single Limb- Left 20 sec but leans to L and uses UEs PT-OP-G Mobility & Gait Start: 07/05/23 18:06 Freq: Status: Active Protocol: Document 07/06/23 13:31 [facility] (Rec: 07/06/23 14:20 [facility] [id number]) OP Gait Assessment Comments Gait Comments pt has harder impact onto LLE and leans over LLE in stance, occ RLE add PT-OP-J Posture/Palpation/Skin Start: 07/05/23 18:06 Freq: Status: Active Protocol: Document 07/06/23 13:31 [facility] (Rec: 07/06/23 14:20 [facility] [id number]) Posture Evaluation [facility] Postural Classification System [facility] Postural Classifications Posterior/Anterior Comments Posture Comments Fwd head and rounded shoulders PT-OP-K Range of Motion Start: 07/05/23 18:06 Freq: Status: Active Protocol: Document 08/05/23 10:05 [facility] (Rec: 08/05/23 12:49 [facility] [id number]) Shoulder Goniometric Range of Motion Shoulder Right Active Flexion 87 Extension 48 Abduction 70 External Rotation at 0 degrees Abduction 52 Internal Rotation Behind Back (text) L5 PT-OP-L Special Tests Start: 07/05/23 18:06 Freq: Status: Active Protocol: Document 07/08/23 13:38 [facility] (Rec: 07/08/23 15:48 [facility] [id number]) Special Tests Neural Special Tests- Upper Body Median Nerve Tension Test Results positive R Radial Nerve Tension Test Results pos R Ulnar Nerve Tension Test Results pos R PT-OP-M Strength Start: 07/05/23 18:06 Freq: Status: Active Protocol: Document 07/08/23 13:38 [facility] (Rec: 07/08/23 15:48 [facility] [id number]) Hip Strength Hip Manual Muscle Testing Right Extension (S1) 3 Fair Abduction 3 Fair Left Extension (S1) 3 Fair Abduction 3 Fair PT-OP-Q Treatments Start: 07/05/23 18:06 Freq: Status: Active Protocol: Document 09/01/23 13:06 [facility] (Rec: 09/01/23 15:39 [facility] [id number]) Cardio Equipment Recumbent Elliptical (Biodex) Duration (Minutes) 6 Resistance 4 Seat Position 7 Gym Equipment Shuttle Recovery bilateral squat Resistance 50 (2 teal) Shuttle Recovery Platform Stable Reps/Time 2 x 20 Therapeutic Exercises Standing Exercises SLS Standing Exercise Name SLS with mirror feedback Side bilateral Equipment Used @ bar prn Comments verbal/visual cues for compensations Side Step Standing Exercise Name lateral step Side bilateral Resistance Green TB at ankles Reps/Minutes 20ft ea Hip Ext Side bilateral Resistance Green TB Reps/Minutes 2x10 Comments cues for posture and to slow sit to stand Side bilateral Resistance Level 3 Green Reps/Minutes 15 Comments w/band around knees, cues for eccentric control Manual Therapy Treatment Soft Tissue Mobilization quad Body Location L patella tendon & lat quad Mobilization Type Rolling Joint Mobilizations patellofemoral Joint sup, inf, med L PT-OP-R Modalities Start: 07/05/23 18:06 Freq: Status: Active Protocol: Document 09/01/23 13:06 (Rec: 09/01/23 16:44 [id number]) Hot Pack/Cold Pack Treatment Cold Pack Location R shoulder, bilat knee Patient Position Supine Treatment Duration (minutes) 10 Comments bolster under knees, discontinued early today d/t pt discomfort in R shldr PT-OP-T Assessment and Plan Start: 07/05/23 18:06 Freq: Status: Active Protocol: Document 09/01/23 13:06 (Rec: 09/01/23 15:39 [id number]) Physical Therapy Assessment Goals activities Short Term Goal (STG) Pt will be able to lay in bed comfortably and sleep w/o inc pain in shoulde ro knees 08/05-last night was uncomfortable d/t shoulder. Every other night seems to have issues w/shoulder sleeping; knees okay STG Duration 08/22 Clerk Guide Goal (LTG) Pt will be able to return to vacumming and gardening tasks w/o inc B knee or R shoulder pain greater than 2/10 08/05-not vacuuming. She did ok w/pulling weeds but didn't have to do any overhead activity LTG Duration 09/28 ROM Short Term Goal (STG) Pt will improve AROM flex to at least 110 deg and abd to at least 90 deg 08/05-mild improvement in AROM; improved PRM STG Duration 08/22 Clerk Guide Goal (LTG) Pt will have AROM equal to that of LUE to allow for ADLs w/o pain including dressing, bathing and doing hair. LTG Duration 09/28/23 quick dash Impairment 61.4 Short Term Goal (STG) Pt will improve score to no higher than 41 to show improved functional ability. 08/05-60-.2 STG Duration 08/22 Clerk Guide Goal (LTG) Pt will improve score to no higher than 20 to show improved functional ability. LTG Duration 09/28/23 LEFS Impairment 30/80 Short Term Goal (STG) Pt will improve score to at least 40/80 to show improved functional ability w/daily tasks. 08/05/36/80 STG Duration 08/22/23 Clerk Guide Goal (LTG) Pt iwll improve score to at least 55/80 to show improved functional ability w/daily tasks. LTG Duration 09/28/23 Assessment Summary Assessment Progressed SLS for strengthening and LE alignment , mod verbal and visual cueing required. Good tolerance throuhougt session w/ no c/o of increased symptoms in bilateral knees. Pt reports next week is her last session. Physical Therapy Plan Frequency and Duration Frequency of Treatment 2x/Week Duration of treatment (weeks) 12 Plan of Care Start Date 07/06/23 Plan of Care End Date 09/28/23 Therapeutic Interventions Therapeutic Interventions Balance Training,Gait Training ,Home Exercise Program,Joint Mobilizations,Manual Therapy, Neuromuscular Re-education, Orthotic/Prosthetic Management ,Patient/Caregiver Education, Self-Care/Home Management,Soft Tissue Mobilization,Taping, Therapeutic Activities, Therapeutic Exercises Modalities Cold Pack/Ice Massage,Electric Stimulation,Hot Packs, Infrared Therapy,Iontophoresis ,Traction- Mechanical, Ultrasound Next Visit Focus/Plan Next Note Type Treatment Note Next Visit Plan focus on knee pain and working on hip and LE stability
--- NOTE | 2023-09-06 18:21 | PT.OTN ---
Current Diagnoses Pain in right shoulder (09/06/23) Pain in right knee (09/06/23) Pain in left knee (09/06/23) Cervicalgia (09/06/23) Muscle weakness (generalized) (09/06/23) Difficulty in walking, not elsewhere classified (09/06/23) Abnormal posture (09/06/23) Strain of muscle(s) and tendon(s) of the rotator cuff of right shoulder, subsequent encounter (09/06/23) Physical Therapy Treatment Note PT-OP-A Visit Information Start: 07/05/23 18:06 Freq: Status: Active Protocol: Document 09/06/23 12:46 [facility] (Rec: 09/06/23 18:21 [facility] [id number]) Out-Patient Physical Therapy Visit Information Visit Information Visit Type Treatment Note Visit Start Time 12:48 Visit Stop Time 13:30 Total Visit Minutes 42 Visit Number 16 Number of HAIR 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 She had a MRI about 8 years ago, which said she had a tear in her RC and a bone spur and a bicep tear. Periodically when we moves wrong, she gets pain and it can tiake a while to go away. She mowed her lawn in early May (not self propelled ) and it aggrevated her R>L shoulder and it started to get better about 3 weeks ago. Recently the bicep gets really 'hard and is creating a lot of pull and stress up neck to base of skull which is new. The pain used to be sharpness on the top on the shoulder w/ reaching up. When she saw the MD, he did a very aggressive testing and flared it again. She notes it can be a real nagging pain sleeping at night . Reaching up, reaching down to wipe and reaching to wash hair is very painful. She has limited what she does d/t pain . She does have history of neck pain. Laying flat on the bed, pulls in ant shoulder and when laying on L side, the arm collapsing fwd hurts. She is avoiding pulling weeds. Pt reports B knee pain and recently even walking to the mailbox is painful. She feels like knees are like a puppet where each 3 bone moves separately. L knee froze the other day when standing and she had to hold to her friend so she could gently release her knee. B knees are problem but L is worse than R. She has seen ortho who is talking about TKA. She had 2 tours set to go where there would be a lot of walking and she knew that would be too much pain. Pt reports she started having falls where her knee collapsed when she was doing yard maintence a few years ago. She never really hurt herself but it hasn't happened often but it happened more in the past few years. Treatment Goals Patient/Caregiver Goals Be able to do ADLs w/o pain, be able to vacuum, be able to go for walks without inc pain PT-OP-C Subjective Start: 07/05/23 18:06 Freq: Status: Active Protocol: Document 09/06/23 12:46 [facility] (Rec: 09/06/23 18:21 [facility] [id number]) OP-PT Subjective Patient Comments Patient Comments Pt reports she hasn't been doing the HEP for knees. Her knees have been on pretty good behavoir PT-OP-D Balance Start: 07/05/23 18:06 Freq: Status: Active Protocol: Document 07/06/23 13:31 [facility] (Rec: 07/06/23 14:20 [facility] [id number]) Balance Tests Single Limb Standing Single Limb- Right >30 sec but leans to R and uses UEs Single Limb- Left 20 sec but leans to L and uses UEs PT-OP-G Mobility & Gait Start: 07/05/23 18:06 Freq: Status: Active Protocol: Document 07/06/23 13:31 [facility] (Rec: 07/06/23 14:20 [facility] [id number]) OP Gait Assessment Comments Gait Comments pt has harder impact onto LLE and leans over LLE in stance, occ RLE add PT-OP-J Posture/Palpation/Skin Start: 07/05/23 18:06 Freq: Status: Active Protocol: Document 07/06/23 13:31 [facility] (Rec: 07/06/23 14:20 [facility] [id number]) Posture Evaluation [facility] Postural Classification System [facility] Postural Classifications Posterior/Anterior Comments Posture Comments Fwd head and rounded shoulders PT-OP-K Range of Motion Start: 07/05/23 18:06 Freq: Status: Active Protocol: Document 08/05/23 10:05 [facility] (Rec: 08/05/23 12:49 [facility] [id number]) Shoulder Goniometric Range of Motion Shoulder Right Active Flexion 87 Extension 48 Abduction 70 External Rotation at 0 degrees Abduction 52 Internal Rotation Behind Back (text) L5 PT-OP-L Special Tests Start: 07/05/23 18:06 Freq: Status: Active Protocol: Document 07/08/23 13:38 [facility] (Rec: 07/08/23 15:48 [facility] [id number]) Special Tests Neural Special Tests- Upper Body Median Nerve Tension Test Results positive R Radial Nerve Tension Test Results pos R Ulnar Nerve Tension Test Results pos R PT-OP-M Strength Start: 07/05/23 18:06 Freq: Status: Active Protocol: Document 07/08/23 13:38 [facility] (Rec: 07/08/23 15:48 [facility] [id number]) Hip Strength Hip Manual Muscle Testing Right Extension (S1) 3 Fair Abduction 3 Fair Left Extension (S1) 3 Fair Abduction 3 Fair PT-OP-Q Treatments Start: 07/05/23 18:06 Freq: Status: Active Protocol: Document 09/06/23 12:46 [facility] (Rec: 09/06/23 18:21 [facility] [id number]) Therapeutic Exercises Sitting Exercises stretch Sitting Exercise Name seated knee to opp chest & figure 4 Side left Reps/Minutes 30 sec Standing Exercises SLS Standing Exercise Name SLS with mirror feedback Side bilateral Equipment Used @ [facility] prn Comments verbal/visual cues for compensations Side Step Standing Exercise Name lateral step Side bilateral Resistance Green TB at ankles Reps/Minutes 15ft ea Hip Ext Side bilateral Resistance Green TB Reps/Minutes 20 Comments cues for posture and to slow hip abd Standing Exercise Name alt Side bilateral Equipment Used Green Band Reps/Minutes 20 Comments cues no lean & foot fwd sit to stand Side bilateral Resistance Level 3 Green Reps/Minutes 10 Comments w/band around knees, cues for eccentric control Self-Care/Home Management Treatment Education Other Education 24 min:Edu ideas to prep for surgery: discussed how to dress and wash, Edu that a shower chair can sometimes be helpful for the initial few showers and occ ppl find canes helpful for balance when arm is in a sling. Edu re: prepping meals and setting up rides for appts prior to surgery along w/setting up assist for first shower and initial dressing PT-OP-R Modalities Start: 07/05/23 18:06 Freq: Status: Active Protocol: Document 09/01/23 13:06 (Rec: 09/01/23 16:44 [id number]) Hot Pack/Cold Pack Treatment Cold Pack Location R shoulder, bilat knee Patient Position Supine Treatment Duration (minutes) 10 Comments bolster under knees, discontinued early today d/t pt discomfort in R shldr PT-OP-T Assessment and Plan Start: 07/05/23 18:06 Freq: Status: Active Protocol: Document 09/06/23 12:46 [facility] (Rec: 09/06/23 18:21 [facility] [id number]) Physical Therapy Assessment Goals activities Short Term Goal (STG) Pt will be able to lay in bed comfortably and sleep w/o inc pain in shoulde ro knees 08/05-last night was uncomfortable d/t shoulder. Every other night seems to have issues w/shoulder sleeping; knees okay STG Duration shoudler still uncomfortalbe - to get surggery B And B Gang Worker Goal (LTG) Pt will be able to return to vacumming and gardening tasks w/o inc B knee or R shoulder pain greater than 2/10 08/05-not vacuuming. She did ok w/pulling weeds but didn't have to do any overhead activity LTG Duration R shoulder still limits ROM Short Term Goal (STG) Pt will improve AROM flex to at least 110 deg and abd to at least 90 deg 08/05-mild improvement in AROM; improved PRM STG Duration painful w/limited progress w/ PT Fpc Goal (LTG) Pt will have AROM equal to that of LUE to allow for ADLs w/o pain including dressing, bathing and doing hair. LTG Duration painful w/limited progress w/ PT quick dash Impairment 61.4 Short Term Goal (STG) Pt will improve score to no higher than 41 to show improved functional ability. 08/05-60-.2 STG Duration n/t but no change at PN B And B Gang Worker Goal (LTG) Pt will improve score to no higher than 20 to show improved functional ability. LTG Duration n/t but no change at PN LEFS Impairment 30/80 Short Term Goal (STG) Pt will improve score to at least 40/80 to show improved functional ability w/daily tasks. 36 STG Duration n/t but pt reports less instances of knees bothering her B And B Gang Worker Goal (LTG) Pt iwll improve score to at least 55/80 to show improved functional ability w/daily tasks. LTG Duration 09/28/23 Assessment Summary Assessment Pt did well with exercises w/ min cues and was encouraged to work on this at home when able after shoulder surgery. She did not have good progress w/R estuardo w/PT and saw ortho who recommended R reverse TSA which pt plans to pursue. LImited time spent on knees but pt is noting less acting up recently. Pt DC d/t going on vacation then planning to get surgery. Physical Therapy Plan Discharge Physical Therapy Discharge Reasons Patient Request
== END 2023-09-09 08:07 | disposition home or self-care (01) ==
LOC: PHYS 12:45
PROVIDERS: Absent Provider Orthopaedic Surgery Foot and Ankle Surgery; Family Provider Family Medicine; PCP Family Medicine; Referring Provider Family Medicine; Visit Provider Family Medicine
DX: M25.511 Pain in right shoulder (principal); M25.561 Pain in right knee; M25.562 Pain in left knee; S46.011D Strain of muscle(s) and tendon(s) of the rotator cuff of right shoulder, subsequent encounter; M62.81 Muscle weakness (generalized); R29.3 Abnormal posture; R26.2 Difficulty in walking, not elsewhere classified; M54.2 Cervicalgia
CPT/HCPCS: 97010; 97110; 97140; 97162; 97535

== ENCOUNTER → 2023-09-07 14:39 | Outpatient (CLI) | payer MEDICARE, OTHER, SELFPAY ==
[2023-09-07 15:21] LABS: Add Manual Diff / Slide Review NO; Basophils Absolute Auto 0 /uL (0-100); Basophils Percent Auto 0.8 % (0-2); Eosinophils Absolute Auto 200 /uL (0-450); Eosinophils Percent Auto 3.1 % (2-4); Hematocrit 36.3 % (36-46); Hemoglobin 12.2 g/dL (12.0-16.0); Lymphocytes Absolute Auto 800 /uL (1100-4500); Lymphocytes Percent Auto 16.2 % (25-40); Mean Corpuscular HGB Conc 33.7 % (30-36); Mean Corpuscular Hemoglobin 30.7 PG (26-34); Mean Corpuscular Volume 91.2 fL (80-100); Monocytes Absolute Auto 400 /uL (0-900); Monocytes Percent Auto 7.8 % (3-14); Neutrophils Absolute Auto 3600 /uL (1500-7000); Neutrophils Percent Auto 72.1 % (50-75); Platelet Count 280 X10^3/uL (150-400); Red Blood Cell Count 3.98 X10^6/uL (4.0-5.2); Red Cell Distribution Width 13.9 % (11.6-14.8); White Blood Cell Count 5.1 X10^3/uL (4.5-11.0)
[2023-09-07 15:29] LABS: Appearance Urine UA CLEAR; Bilirubin Urine UA NEGATIVE (NEGATIVE); Color Urine UA YELLOW; Glucose Urine UA NEGATIVE (Negative); Ketones Urine UA NEGATIVE (NEGATIVE); Leukocyte Esterase Urine UA TRACE (NEGATIVE); Nitrite Urine UA NEGATIVE (Negative); Occult Blood Urine UA NEGATIVE (Negative); Protein Urine UA NEGATIVE (Negative); Specific Gravity Urine UA <=1.005 (1.000-1.035); Urobilinogen Urine UA 0.2 E.U./dL (0.2)
[2023-09-07 15:51] LABS: BUN Creatinine Ratio 32.1 (6-22); Blood Urea Nitrogen 17 mg/dL (7-17); Calcium 9.2 mg/dL (8.4-10.2); Carbon Dioxide 24 mmol/L (22-32); Chloride 98 mmol/L (98-107); Estimated Glomerular Filt Rate > 60 mL/min (>60); Glucose 89 mg/dL (80-110); HEMOLYSIS < 15 (0-50); Potassium 4.1 mmol/L (3.4-5.1); Sodium 131 mmol/L (137-145)
[2023-09-07 15:58] LABS: Bacteria Urine Occasional (0-1); Culture Indicated Urine Specimen Cultured; RBC Urine None Seen (0-5/HPF); Squamous Epithelial Cell Urine 1-5 /HPF (0-5/HPF); WBC Urine 1-5/HPF (0-5/HPF)
== END ==
PROVIDERS: Family Provider Family Medicine; PCP Family Medicine; Referring Provider Orthopaedic Surgery; Visit Provider Orthopaedic Surgery
DX: Z01.818 Encounter for other preprocedural examination (principal); Z01.812 Encounter for preprocedural laboratory examination; N39.0 Urinary tract infection, site not specified
CPT/HCPCS: 36415; 80048; 81001; 85025; 87086; 93005; 93010

== ENCOUNTER → 2023-09-22 15:14 | Outpatient (CLI) | payer MEDICARE, OTHER, SELFPAY ==
--- NOTE | 2023-09-22 15:16 | DI.CT.S_ITS ---
PROCEDURE: CT SHOULDER RIGHT WITHOUT CON INDICATIONS: Primary osteoarthritis, right shoulder TECHNIQUE: Noncontrast 1-1.5 mm thick sections acquired from the acromioclavicular joint to the inferior scapula, with coronal and sagittal reformatting. COMPARISON: None. FINDINGS: Image quality: Excellent. Bones: There is amlc-pl-rnwiliyh acromioclavicular joint osteoarthritis with joint space narrowing, subchondral sclerosis and downward osteophyte formation depressing the musculotendinous junction of supraspinatus. Moderate glenohumeral joint osteoarthritic changes are also noted with joint space narrowing, subchondral sclerosis and marginal osteophyte formation. There is slight superior migration of humeral head in relation to glenoid. No acute fracture or dislocation. No suspicious bony lesions. Visualized right upper ribs are grossly intact. Soft tissues: There is no definite full-thickness rotator cuff tendon rupture. No significant rotator cuff muscle atrophy is seen on sagittal images. No abnormal soft tissue calcifications are noted. No significant joint effusion or subacromial subdeltoid bursal fluid. Small to moderate amount of subcoracoid bursal fluid is seen. No calcified intra-articular loose bodies. Visualized right lung field is clear. IMPRESSION: 1. Vama-mv-owhzqqxa acromioclavicular joint osteoarthritis and moderate glenohumeral joint osteoarthritis. No shoulder fracture or dislocation. No suspicious bony lesions. 2. Slight superior migration of humeral head in relation to glenoid with narrowing of subacromial space. No definite full-thickness rotator cuff tendon rupture is seen. No significant rotator cuff muscle atrophy. 3. Small to moderate amount of subcoracoid bursal fluid. No gross intra-articular loose bodies. No abnormal soft tissue calcifications. Dictated by: Brian Oconnor M.D. on 09/22/2023 at 17:41 Approved by: Brian Oconnor M.D. on 09/22/2023 at 17:46
== END ==
PROVIDERS: Family Provider Family Medicine; PCP Family Medicine; Referring Provider Orthopaedic Surgery; Visit Provider Orthopaedic Surgery
DX: M19.011 Primary osteoarthritis, right shoulder (principal)
CPT/HCPCS: 73200

== ENCOUNTER 2023-10-06 12:55 | Inpatient (IN) | payer MEDICARE, OTHER, SELFPAY ==
[2023-09-28 09:40] VITALS: BMI 31.5
[2023-10-06] VITALS (8 sets, daily range): BP systolic 126–177; BP diastolic 81–86; PULSE 75–84; RESP 15–23; TEMP 36.1–36.8; O2SAT 93–96; BMI 30.9
--- NOTE | 2023-10-06 06:00 | DI.RAD.S_ITS ---
PROCEDURE: XR SHOULDER RT MIN 2V INDICATIONS: RTSA TECHNIQUE: 1 views of the shoulder were acquired. COMPARISON: None. FINDINGS: Bones: No fractures or dislocations. Postsurgical changes from reverse right shoulder arthroplasty. The hardware appears intact without surrounding fracture or lucency. No suspicious bony lesions. Visualized ribs appear intact. Soft tissues: Overlying postsurgical changes are seen. IMPRESSION: Expected postoperative changes from reverse right shoulder arthroplasty. Dictated by: Jose Morrissey M.D. on 10/06/2023 at 16:15 Approved by: Jose Morrissey M.D. on 10/06/2023 at 16:16
--- NOTE | 2023-10-06 13:35 | PM.PREOP ---
Pre-operative Note Interval Note History & Physical reviewed/Exam performed by Physician: Yes Changes to H&P: No
[2023-10-06] MEDS: LACTATED RINGERS 1,000 ML 42 ML IV (13:42)
--- NOTE | 2023-10-06 14:08 | SUR.PREOP ---
Time out 1348 Block start time 1349 Monitoring initiated and maintained throughout procedure. Oxygen and medications given by anesthesiologist. Patient remained stable throughout procedure, no adverse reactions noted. Block end time 1358 .
[2023-10-06] MEDS: CEFAZOLIN 2 GM/100 ML PREMIX 100 ML IV (14:10)
[2023-10-06] MEDS: TRANEXAMIC ACID 1,000 MG VIAL 1000 MG INJ (14:25)
--- NOTE | 2023-10-06 14:48 | SUR.OPER ---
Beach chair with Maquet shoulder positioner. Lower body on padded OR bed. Head in foam padded head cradle, secured with straps. Non-operative arm secured <90 degrees abduction ON PADDED ARM BOARD. Pillow under knees. Safety belt at thigh. Cloth tape over blanket over lower legs.
--- NOTE | 2023-10-06 15:48 | P.OP_ITS ---
Operative Date/Time/Diagnoses Date of procedure: 10/06/23 Time of procedure: 15:49 Pre-op diagnosis: Right rotator cuff arthropathy Post-op diagnosis: same Procedure & Clinicians Procedure: Right reverse total shoulder arthroplasty Same procedure as scheduled: Yes Indications: Indications: This is a 78-year-old female who has right shoulder rotator cuff arthropathy. Symptoms have been present for years, insidious onset. Patient has failed conservative therapy including injections, physical therapy, anti- inflammatories and activity modification. After extensive discussion in clinic, they wished to go forward with surgery. Risks and benefits were described including the risk of infection, bleeding, damage to internal structures in cluding nerves. We also discussed the risk of failure of surgery and the need for revision surgery as well as the risk of anesthesia. The patient expressed understanding with these risks and wished to go forward with surgery. Surgeon: Jackson Durand Click Yes if Unassisted: Yes Anesthesia Type: General Operative Notes Findings: Findings: Osteoarthritis of the glenoid and humeral head as well as a defient rotator cuff as noted on preoperative imaging and under direct visualization Closure Type: primary Specimen(s): none sent Prosthetic devices, grafts, tissues, transplants, or devices: Tornier implants Base plate: standard 25 mm Glenosphere: Size 33, +3 Stem: Perform 2 Poly: +0 concentric Estimated Blood Loss (mL): 50 Blood products transfused: none Procedure in detail: Patient was seen in the preoperative holding unit. The correct right shoulder was identified and marked with my initials. Again we discussed the risks and benefits of surgery and they wished to go forward with surgery. The patient was brought back to the operating room and placed supine on the operating table. Smooth endotracheal intubation was performed by anesthesia. All prominences were padded and they were placed into the beach chair position. Intravenous antibiotics were given. The right shoulder was then prepped with the standard sterile preparation and draping. A time-out was then performed in my initials were again identified on the correct shoulder. 1 g of IV tranexamic acid was given. A standard deltopectoral incision was made. Skin flaps were made. The cephalic vein was identified and retracted laterally. This was protected throughout the remainder of the case. Sharp dissection was made along the deltoid, subacromial and subcoracoid space to release adhesions. The conjoined tendon was identified and the axillary nerve was palpated and continuous using the tug test. It was protected throughout the remainder of the case. A brown retractor was placed underneath the deltoid muscle and a darach retractor underneath the conjoint tendon. The anterior circumflex artery and associated veins on the lower border of the subscapularis were identified and tied off using 0-Vicryl. The biceps tendon was identified in the bicipital groove. This was released from its sheath, and taken from its origin on the glenoid and tied into the pectoralis tendon for a solid tenodesis. We then began a subscapularis peel. The subscapularis was tagged with an Ethibond suture. A 360 degree circumferential release of the subscapularis was performed with protection of the axillary nerve. The coracohumeral ligament was released at the base of the coracoid. The coracoacromial ligament was left intact. The shoulder was then dislocated. Osteophytes were removed using combination of rongeur and osteotome. The rotator cuff was noted to be insufficient. An intramedullary guide was used set at version of 20?. Using an oscillating saw a conservative humeral head cut was made. Impaction reamers were reamed up to a size 2 stem with a built-in angle 135?. A neck protector was placed. Attention was then turned to the glenoid. After retracting the humeral head posteriorly a circumferential release was performed of the capsule with protection of the axillary nerve. The labrum was then released starting at the biceps anchor and going around the rim a small amount of triceps was released from the inferior glenoid. A center guide pin was then placed using the guide, followed by Reamer. After adequate cartilage was removed the center drill hole was drilled and measured. The base plate was then implanted and screwed into p lace. The superior drill hole was drilled and filled in a nonlocking fashion, followed by the inferior and anterior holes in locking fashion, the posterior hole was also filled. A 33, +3 glenosphere was then selected and screwed into place onto the base plate. Turning back to the humerus, the humeral head was delivered and trialed with a 0 concentric. The arm was taken through range of motion and this was felt to be stable. The trial was then removed and a dilute Betadine wash was then performed with 1 L of sterile saline. Before placing the final implant, drill holes were made in the bicipital groove for the subscapularis repair, and sutures were passed through the drill holes. The final stem was then impacted into the humerus. The shoulder was then reduced and again brought through range of motion and was felt to be stable. The interval was then closed using #2 Ethibond. The subscapularis was then repaired using a modified racking hitch with nice loupes. The deltopectoral interval was then closed with #2 Ethibond. The skin was closed with 2-0 PDS and Monocryl followed by Aquacel dressing. Patient was awoken from anesthesia and brought back to the postoperative recov fabi unit without issue. They were placed into a sling. Complications: none Post-operative Condition: stable Disposition: PACU Plan for aftercare: Postoperative instructions: Sling to remain on for 6 weeks. No external rotation past neutral for 6 weeks. Okay for him to come off her shower. Okay to shower over the Aquacel dressing. If any water gets underneath the dressing, remove the dressing. First postoperative visit in 2 weeks.
== END 2023-10-06 17:00 | disposition home or self-care (01) | DRG 483 ==
PROVIDERS: Admitting Provider Orthopaedic Surgery; Family Provider Family Medicine; PCP Family Medicine; Referring Provider Orthopaedic Surgery; Visit Provider Orthopaedic Surgery
PROC: 0RRJ00Z Replacement of Right Shoulder Joint with Reverse Ball and Socket Synthetic Substitute, Open Approach (ICD-10-PCS; CPT 23472; principal; 2023-10-06 14:45)
DX: M19.011 Primary osteoarthritis, right shoulder (principal)
CPT/HCPCS: 64415; 73030; C1776; J0690; J1100; J2250; J3010

== ENCOUNTER → 2023-12-28 12:11 | Outpatient (CLI) | payer MEDICARE, OTHER, SELFPAY ==
--- NOTE | 2023-12-28 12:14 | DI.RAD.S_ITS ---
Bone Density Report Name: GLORIA ZAMORA Age: 78 Sex: Female Ethnicity: White Date of : 1945 Indication: postmenopausal; screening for osteoporosis; Referring Provider: KUMAR MUIR Study: Bone densitometry was performed. Exam Date: December 28, 2023 Accession number: [id number] Bone Density: Region BMD T-score Z-score Classification AP Spine(L1, L2, L3) 1.079 0.6 3.0 Normal Femoral Neck (Left) 0.624 -2.0 0.1 Osteopenia Total Hip (Left) 0.852 -0.7 1.1 Normal Femoral Neck (Right) 0.602 -2.2 -0.1 Osteopenia Total Hip (Right) 0.804 -1.1 0.7 Osteopenia Total Hip Mean 0.828 -0.9 0.9 Normal World Health Organization criteria for BMD impression classify patients as: Normal (T-score at or above -1.0), Osteopenia (T-score between -1.0 and -2.5), or Osteoporosis (T-score at or below -2.5). 10-year Fracture Risk(1): Major Osteoporotic Fracture 14% Hip Fracture 3.9% Reported Risk Factors: [place] (), Neck BMD=0.602, BMI=31.3 (1) FRAX(R) Version 3.08. Fracture probability calculated for an untreated patient. Fracture probability may be lower if the patient has received treatment. Previous Exams: -- Region Exam Age BMD T-score BMD Change BMD Change Date g/cm2 vs Baseline vs Previous -- AP Spine (L1-L3) 12/28/2023 78 1.079 0.6 0.028 (2.6%)# 0.028 (2.6%)# 03/17/2019 73 1.051 0.3 Total Hip(Left) 12/28/2023 78 0.852 -0.7 -0.050 (-5.6%)# -0.050 (-5.6%)# 03/17/2019 73 0.902 -0.3 Total Hip(Right) 12/28/2023 78 0.804 -1.1 -0.070 (-8.0%)# -0.070 (-8.0%)# 03/17/2019 73 0.875 -0.6 -- *Denotes significance at 95% confidence level, LSC for AP Spine = 0.022 g/cm2, LSC for Total Hip = 0.027 g/cm2 # Denotes dissimilar scan types or analysis methods Impression: The patient has low bone mass, based on the Right Femoral Neck T-score. The patient has an estimated ten-year risk of hip fracture of 3.9% and an estimated ten-year risk of major fracture of 14%, based on the WHO FRAX algorithm. No significant bone loss was observed. Discussion: BONE DENSITY IS LOW AT ONE OR MORE SKELETAL SITES. THE PATIENT'S BMD AND CLINICAL RISK FACTORS CONTRIBUTE TO THIS PATIENT'S INCREASED RISK OF FRACTURE. This patient's lowest T-score is low at one or more skeletal sites. It meets the World Health Organization's (WHO) criteria for low bone mass (T-score between -1.0 and -2.5). The patient's 10-year risk of hip fracture as calculated by FRAX exceeds the threshold where pharmacological therapy is recommended by the National Osteoporosis Foundation (NOF). However, all treatment decisions require clinical judgment and consideration of individual patient factors, including patient preferences, comorbidities, previous drug use, risk factors not captured in the FRAX model (e.g., frailty, falls, vitamin D deficiency, increased bone turnover, interval significant decline in bone density) and possible under or overestimation of fracture risk by FRAX. The patient should follow a healthful lifestyle (good nutrition with adequate calcium and vitamin D, and appropriate weight-bearing exercise). Follow-Up: Consider a repeat BMD and Vertebral Fracture Assessment (VFA) exam in 2 years or sooner if medically necessary, to reassess this patient's status. Reported by: MELANIE GALINDO M.D. on 12/28/2023 12:45:00 PM.
== END ==
PROVIDERS: Family Provider Family Medicine; PCP Family Medicine; Referring Provider Family Medicine; Visit Provider Family Medicine
DX: M81.0 Age-related osteoporosis without current pathological fracture (principal)
CPT/HCPCS: 77080

== ENCOUNTER → 2024-02-08 12:06 | Outpatient (CLI) | payer MEDICARE, OTHER, SELFPAY ==
--- NOTE | 2024-02-08 12:07 | DI.MRI.S_ITS ---
PROCEDURE: MR SHOULDER LT WO CON INDICATIONS: rupture of left shoulder, not specified as traumat TECHNIQUE: Noncontrast oblique coronal T2 fast spin echo with fat saturation, oblique sagittal T1 spin echo and T2 fast spin echo with fat saturation, axial T1 spin echo and T2 fast spin echo with fat saturation through the shoulder. COMPARISON: [facility], MR, MR SHOULDER RT WO CON, 08/27/2023, 12:26. FINDINGS: Image quality: Excellent. Rotator cuff: Low to moderate grade articular and bursal surface partial thickness tear involving distal supraspinatus at its insertion on the humeral head is seen extending to musculotendinous junction. Distal infraspinatus and subscapularis tendinosis is noted. No full-thickness rotator cuff tendon rupture. Sagittal images demonstrate mild to moderate supraspinatus muscle atrophy. Bones and bursae: No bone marrow contusions or fractures. Mild to moderate acromioclavicular joint osteoarthritic changes are seen with joint space narrowing and downward osteophyte formation depressing the musculotendinous junction of supraspinatus. The acromion demonstrates conventional anatomy, without an os acromiale. Small amount of joint effusion and subacromial subdeltoid bursal fluid is seen, no gross loose bodies. Capsule and soft tissues: The labrum is grossly intact. Intrasubstance T2 hyperintense signal within proximal long head of biceps is seen at the level of humeral head. The rotator interval appears normal, without fibrosis. The coracohumeral ligament is normal in thickness. IMPRESSION: 1. Low to moderate grade articular and bursal surface partial thickness tear involving distal supraspinatus extending to musculotendinous junction. Distal infraspinatus and subscapularis tendinosis. No full-thickness rotator cuff tendon rupture. Mild to moderate supraspinatus muscle atrophy. 2. No marrow edema. No fracture or dislocation. [id number] acromioclavicular joint osteoarthritis. Small amount of joint effusion and subacromial subdeltoid bursal fluid, no gross loose bodies. 3. No evidence of focal labral tear. 4. Moderate grade intrasubstance partial-thickness tear involving proximal long head of biceps. Dictated by: Brian Oconnor M.D. on 02/08/2024 at 16:30 Approved by: Brian Oconnor M.D. on 02/08/2024 at 16:33
== END ==
PROVIDERS: Family Provider Family Medicine; PCP Family Medicine; Referring Provider Orthopaedic Surgery; Visit Provider Orthopaedic Surgery
DX: M75.112 Incomplete rotator cuff tear or rupture of left shoulder, not specified as traumatic (principal); M19.012 Primary osteoarthritis, left shoulder; S46.112A Strain of muscle, fascia and tendon of long head of biceps, left arm, initial encounter
CPT/HCPCS: 73221

== ENCOUNTER → 2024-02-24 10:18 | Outpatient (CLI) | payer MEDICARE, OTHER, SELFPAY ==
[2024-02-24 11:45] LABS: TSH w/ Reflex to FT4 2.91 uIU/mL (0.47-4.68)
== END ==
PROVIDERS: Family Provider Family Medicine; PCP Family Medicine; Referring Provider Family Medicine; Visit Provider Family Medicine
DX: E89.0 Postprocedural hypothyroidism (principal)
CPT/HCPCS: 36415; 84443

== ENCOUNTER → 2024-03-19 15:24 | Outpatient (CLI) | payer MEDICARE, OTHER, SELFPAY ==
[2024-03-19 16:20] LABS: Influenza A - CEPHEID Flu A NEGATIVE (NEGATIVE); Influenza B - CEPHEID Flu B NEGATIVE (NEGATIVE); Respiratory Syncytial Virus Negative (Negative)
[2024-03-19 20:13] LABS: COVID-19 CEPHEID 4-PLEX PCR Negative (Negative)
== END ==
PROVIDERS: Family Provider Family Medicine; PCP Family Medicine; Visit Provider Physician Assistant Medical
DX: R05.9 Cough, unspecified (principal)
CPT/HCPCS: 0241U

== ENCOUNTER → 2024-03-19 15:44 | Outpatient (CLI) | payer MEDICARE, OTHER, SELFPAY ==
--- NOTE | 2024-03-19 15:47 | DI.RAD.S_ITS ---
PROCEDURE: XR CHEST 2V INDICATIONS: SOB TECHNIQUE: 2 views of the chest were acquired. COMPARISON: [facility], CR, XR CHEST 2V, 10/09/2019, 9:44. FINDINGS: Surgical changes and devices: Right shoulder arthroplasty. Lungs and pleura: Lungs are clear. No pleural effusions or pneumothorax. Mediastinum: Mediastinal contours are normal. Heart size is normal. Bones and chest wall: No suspicious bony abnormalities. Soft tissues appear unremarkable. IMPRESSION: No acute cardiopulmonary abnormality is seen. Dictated by: Brendon Mcguire M.D. on 03/19/2024 at 16:31 Approved by: Brendon Mcguire M.D. on 03/19/2024 at 16:32
== END ==
PROVIDERS: Family Provider Family Medicine; PCP Family Medicine; Referring Provider Physician Assistant Medical; Visit Provider Physician Assistant Medical
DX: R06.02 Shortness of breath (principal); R05.9 Cough, unspecified
CPT/HCPCS: 0241U; 71046

== ENCOUNTER → 2024-06-12 13:56 | Outpatient (CLI) | payer MEDICARE, OTHER, SELFPAY ==
--- NOTE | 2024-06-12 13:57 | DI.MG.S_ITS ---
BILATERAL DIGITAL SCREENING MAMMOGRAM 3D/2D WITH CAD: 06/12/2024 CLINICAL: Routine screening. Comparison is made to exams dated: 05/24/2023 mammogram, 05/21/2022 mammogram, and 05/13/2021 mammogram - [facility]. There are scattered areas of fibroglandular density in both breasts (category b / 25%-50% glandular tissue). Current study was also evaluated with a Computer Aided Detection (CAD) system. No significant masses, calcifications, or other findings are seen in either breast. There has been no significant interval change. IMPRESSION: NEGATIVE There is no mammographic evidence of malignancy. A 1 year screening mammogram is recommended. Based on the Tyrer Cuzick model (a risk assessment model) the patient's lifetime risk is 3.1% and her 10 year risk is 0.0%. According to the ACR, ACS, and NCCN guidelines, an annual breast MRI exam along with mammogram is recommended if the patient's lifetime risk is 20% or greater. This exam was interpreted at Station ID: [id number]. NOTE: For mammograms, a report in lay terms will be sent to the patient. Approximately 15% of breast malignancies will not be visualized mammographically. In the management of a palpable breast mass, a negative mammogram must not discourage biopsy of a clinically suspicious lesion. Electronically Signed By: Juan Jose brizuela/mal:06/13/2024 09:30:42 letter sent: Normal Exam ACR BI-RADS Category 1: Negative [id number]
== END ==
PROVIDERS: Family Provider Family Medicine; PCP Family Medicine; Referring Provider Family Medicine; Visit Provider Family Medicine
DX: Z12.31 Encounter for screening mammogram for malignant neoplasm of breast (principal); R92.323 Mammographic fibroglandular density, bilateral breasts
CPT/HCPCS: 77063; 77067

== ENCOUNTER → 2024-09-21 10:46 | Outpatient (CLI) | payer MEDICARE, OTHER, SELFPAY ==
--- NOTE | 2024-09-21 10:49 | EKG_ITS ---
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
[2024-09-21 12:22] LABS: Add Manual Diff / Slide Review NO; Basophils Absolute Auto 0 /uL (0-100); Basophils Percent Auto 0.8 % (0-2); Eosinophils Absolute Auto 200 /uL (0-450); Eosinophils Percent Auto 3.5 % (2-4); Hematocrit 37.6 % (36-46); Hemoglobin 12.5 g/dL (12.0-16.0); Lymphocytes Absolute Auto 700 /uL (1100-4500); Lymphocytes Percent Auto 14.5 % (25-40); Mean Corpuscular HGB Conc 33.3 % (30-36); Mean Corpuscular Hemoglobin 30.4 PG (26-34); Mean Corpuscular Volume 91.4 fL (80-100); Monocytes Absolute Auto 400 /uL (0-900); Monocytes Percent Auto 9.2 % (3-14); Neutrophils Absolute Auto 3200 /uL (1500-7000); Platelet Count 280 X10^3/uL (150-400); Red Blood Cell Count 4.11 X10^6/uL (4.0-5.2); Red Cell Distribution Width 14.1 % (11.6-14.8); White Blood Cell Count 4.5 X10^3/uL (4.5-11.0)
[2024-09-21 12:33] LABS: Hemoglobin A1C% w Est Avg Glu 5.8 % (4.0-6.0)
[2024-09-21 13:01] LABS: Appearance Urine UA CLEAR; Bilirubin Urine UA NEGATIVE (NEGATIVE); Color Urine UA YELLOW; Glucose Urine UA NEGATIVE (Negative); Ketones Urine UA NEGATIVE (NEGATIVE); Leukocyte Esterase Urine UA NEGATIVE (NEGATIVE); Nitrite Urine UA NEGATIVE (Negative); Occult Blood Urine UA NEGATIVE (Negative); Protein Urine UA NEGATIVE (Negative); Specific Gravity Urine UA <=1.005 (1.000-1.035); Urobilinogen Urine UA 0.2 E.U./dL (0.2)
[2024-09-21 13:07] LABS: Alanine Aminotransferase 20 IU/L (<35); Albumin 4.3 g/dL (3.5-5.0); Albumin Globulin Ratio 1.5 (1.0-2.8); Alkaline Phosphatase 107 U/L (38-126); Aspartate Aminotransferase 27 IU/L (14-36); BUN Creatinine Ratio 27.6 (6-22); Bilirubin Total 0.6 mg/dL (0.2-1.3); Blood Urea Nitrogen 16 mg/dL (7-17); Calcium 9.4 mg/dL (8.4-10.2); Carbon Dioxide 27 mmol/L (22-32); Chloride 100 mmol/L (98-107); Cholesterol 155 mg/dL (140-199); Estimated Glomerular Filt Rate > 60 mL/min (>60); Globulin 2.9 g/dL (1.7-4.1); Glucose 87 mg/dL (80-110); HDL Cholesterol 57 mg/dL (40-60); HEMOLYSIS < 15 (0-50); LDL Cholesterol Calculated 81 mg/dL (<100); Potassium 4.5 mmol/L (3.4-5.1); Sodium 135 mmol/L (137-145); Total Protein 7.2 g/dL (6.3-8.2); Triglycerides 86 mg/dL (35-150)
[2024-09-21 13:27] LABS: Bacteria Urine None Seen; Culture Indicated Urine Cult Not Indicated; RBC Urine None Seen (0-5/HPF); Squamous Epithelial Cell Urine 1-5 /HPF (0-5/HPF); Urine Volume 10mL (spun); WBC Urine 0-1/HPF (0-5/HPF)
[2024-09-21 13:39] LABS: TSH w/ Reflex to FT4 3.95 uIU/mL (0.47-4.68)
== END ==
PROVIDERS: Family Provider Family Medicine; PCP Family Medicine; Referring Provider Orthopaedic Surgery; Visit Provider Orthopaedic Surgery
DX: Z01.818 Encounter for other preprocedural examination (principal); R73.9 Hyperglycemia, unspecified; I10 Essential (primary) hypertension; E78.5 Hyperlipidemia, unspecified; Z01.812 Encounter for preprocedural laboratory examination; N39.0 Urinary tract infection, site not specified; E89.0 Postprocedural hypothyroidism
CPT/HCPCS: 36415; 80053; 80061; 81001; 83036; 84443; 85025; 93005

== ENCOUNTER 2024-10-10 11:43 | Day surgery (SDC) | payer MEDICARE, OTHER, SELFPAY ==
[2024-10-04 09:24] VITALS: BMI 31.7
[2024-10-10] VITALS (9 sets, daily range): BP systolic 119–159; BP diastolic 53–78; PULSE 73–87; RESP 12–18; TEMP 36.2–37.2; O2SAT 93–97; BMI 31.7
--- NOTE | 2024-10-10 06:00 | DI.RAD.S_ITS ---
PROCEDURE: XR KNEE LT 1TO2V INDICATIONS: TKA TECHNIQUE: 2 view(s) of the knee acquired. COMPARISON: None. FINDINGS: Bones: Patient is status post knee joint arthroplasty. Hardware components are in expected positions. Visualized bony structures are intact. Soft tissues: Overlying postoperative changes are noted. IMPRESSION: Expected post-operative appearance of a knee arthroplasty. Dictated by: Germán Kee M.D. on 10/11/2024 at 14:00 Approved by: Germán Kee M.D. on 10/11/2024 at 14:01
[2024-10-10] MEDS: CELECOXIB 200 MG CAPSULE 400 MG PO (12:39)
[2024-10-10] MEDS: ACETAMINOPHEN 325 MG TABLET 975 MG PO (12:40)
[2024-10-10] MEDS: LACTATED RINGERS 1,000 ML 42 ML IV ×2 (13:27→18:33)
[2024-10-10] MEDS: VANCOMYCIN 1,000 MG/200 ML PIGGYBACK 200 MG IV (14:59)
--- NOTE | 2024-10-10 15:39 | PM.PREOP ---
Pre-operative Note Interval Note History & Physical reviewed/Exam performed by Physician: Yes Changes to H&P: No
--- NOTE | 2024-10-10 15:40 | P.OP_ITS ---
Operative Date/Time/Diagnoses Date of procedure: 10/10/24 Time of procedure: 16:30 Pre-op diagnosis: Left knee OA Post-op diagnosis: same Procedure & Clinicians Procedure: Left total knee arthroplasty Same procedure as scheduled: Yes Indications: The patient has had progressively worsening left knee pain with radiographic changes consistent with arthritis. Non-operative management has failed and the patient has requested total knee replacement. The risks, benefits and alternatives to surgery were discussed with the patient prior to proceeding. Risks discussed included, but were not limited to, failure to relieve pain, stiffness, infection, nerve damage, deep venous thrombosis, pulmonary embolism, stroke, coma, heart attack, permanent paralysis and , as well as the potential need for eventual revision of the prosthetic. Surgeon: Gudelia Ramos Block Feeder: Brice Campbell Anesthesia Type: Spinal and Peripheral nerve block Operative Notes Findings: Severe left knee OA, adequate stability Closure Type: primary Specimen(s): none sent Prosthetic devices, grafts, tissues, transplants, or devices: [facility] BCS 2 size femur 4, tibia size 3, patella 32 x 7-1/2, poly 9 Estimated Blood Loss (mL): 250 Blood products transfused: none Tourniquet time (min): 92 Procedure in detail: The patient was seen in the pre-operative area, where the patient identified the left knee as the operative site and this was marked with my initials. The patient received pre-operative antibiotics, and was taken to the operating room and placed on the operative table in the supine position. After satisfactory anesthesia, a multimedia authoring specialist out was performed. The left leg was encircled with a tourniquet about the proximal thigh, and the leg was prepared from the toes to the tourniquet with ChloroPrep in the usual fashion and draped through sterile drapes. The leg was elevated and exsanguinated with Eschmark bandage and the tourniquet inflated to [250] mmHg pressure. A PA was used during the procedure was essential for intraoperative retraction and safe implantation of the components. The knee was approached through an approximately 18 cm incision centered over t he patella and carried into the knee through a medial parapatellar arthrotomy. Portion of the medial and lateral meniscus was resected. Soft tissue was carefully mobilized around the patella the patella was measured with a caliper. Bone was resected from the patella and the patellar height was reconstituted with up an appropriate sized patellar component. A cover was then placed on the patella. A small amount of additional medial and lateral meniscus was resected. Preston pins were placed for robot assisted navigation. Two pins were placed in the femur and the tibial guide was pinned to the tibia. A plan was taken and meticulously navigated in order to optimize range of motion and stability with good balance throughout range of motion. Cori robotic bur was used for the distal femoral resection. It looked like an appropriate distal femoral cut and the cut was made without difficulty. The rotation was assessed and the appropriate size femoral guide was placed on the distal femur and finishing cuts were made. There was no evidence of notching. The anterior, posterior and chamfer cuts were then made. The posterior osteophytes and soft tissues were then removed. The posterior capsule was injected with part of a mixture of 60 ml 0.25% Marcaine mixed with 20 ml Exparel for post operative pain control. The remainder of this mixture was injected into the capsule and subcutaneous tissues during cement curing. The tibial guide was carefully navigated with a Cori robotic navigation. It looked like an appropriate cut. The cut was made without difficulty.. The rotation was assessed. The patient was placed in extension residual medial and lateral meniscus as well as any residual bone was carefully resected. [No] additional tibia was resected. Hemostasis was achieved especially posteriorly. Additional local was injected into the posterior capsule. The extension gap was assessed. It was checked with the gap pbx inspector. The femoral component was trial was placed and the notch was finished. Trial tibial and femoral components were then placed and the knee placed through a range of motion. Range of motion was [0-130], with good stability throughout the range. The trials were then removed, and the tibia was finished. The bone was prepared with pulsatile lavage, and dried with a sponge. Cement was applied and the final prosthetics placed. Excess cement was removed during and after cement curing. A brief Betadine soak was performed. After confirming there was no extruded cement posteriorly, the final tibial insert was placed. The knee was copiously irrigated and the tourniquet deflated. Hemostasis was obtained with the Bovie cautery. The capsule was closed with interrupted # 1 Vicryl suture. The subcutaneous layer was closed with barbed sutures, and the skin with a running 3-0 V-Lock suture and skin kathleen. A lux dressing was applied and the patient was taken to recovery having tolerated the procedure well. Complications: none Post-operative Condition: stable Disposition: Acute Care Plan for aftercare: The patient will be maintained on a standard total knee replacement protocol with weight bearing as tolerated. The patient will receive aspirin and sequential compression devices for DVT prophylaxis. The patient will be discharged home when safe for the home environment.
--- NOTE | 2024-10-10 15:40 | PM.PREOP ---
Pre-operative Note Interval Note History & Physical reviewed/Exam performed by Physician: Yes Changes to H&P: No
[2024-10-10] MEDS: CEFAZOLIN 2 GM/100 ML PREMIX 100 ML IV (17:50)
--- NOTE | 2024-10-10 18:05 | SUR.OPER ---
Supine on padded OR bed. Pillow under head, arms secured on padded armboards <90 degree abduction. Safety belt across torso. Non-operative leg secured with tape over blanket over lower leg. Operative leg secured in DeMayo/Gordy/Nathe positioner. Foam padded brace at thigh of operative leg.
[2024-10-10] MEDS: BUPIVACAINE LIPOSOME 266 MG/20 ML VIAL INJ (18:11)
[2024-10-10] MEDS: BUPIVACAINE 0.25% (PF) 60 ML, EPINEPHrine 0.3 MG INJ (18:11)
[2024-10-10] MEDS: TRANEXAMIC ACID 1,000 MG VIAL 1000 MG INJ ×2 (18:12→19:32)
[2024-10-10] MEDS: ACETAMINOPHEN 325 MG TABLET 650 MG PO (20:24)
[2024-10-10] MEDS: OXYCODONE IR 5 MG TABLET PO ×2 (20:24→23:06)
[2024-10-10] MEDS: ONDANSETRON 4 MG/2 ML INJ IV ×2 (20:24→23:06)
[2024-10-10] MEDS: LACTATED RINGERS 1,000 ML 100 ML IV (21:02)
[2024-10-10] MEDS: ATORVASTATIN 20 MG TABLET 10 MG PO (21:04)
[2024-10-10] MEDS: ASPIRIN EC 81 MG TABLET PO (21:04)
[2024-10-10] MEDS: DOCUSATE 100 MG CAPSULE PO (21:04)
[2024-10-10] MEDS: lisinopriL 10 MG TABLET PO (21:04)
[2024-10-10] MEDS: IBUPROFEN 400 MG TABLET PO (21:05)
[2024-10-11] VITALS: BP 128/61; PULSE 72; RESP 16; O2SAT 94
[2024-10-11] MEDS: CEFAZOLIN 2 GM/100 ML PREMIX 100 ML IV (01:25)
[2024-10-11] MEDS: ACETAMINOPHEN 325 MG TABLET 650 MG PO ×2 (03:34→11:01)
[2024-10-11 04:00] VITALS: BP 144/66; PULSE 67; RESP 16; TEMP 36.4; O2SAT 99
[2024-10-11 05:06] LABS: Hematocrit 30.9 % (36-46); Hemoglobin 10.3 g/dL (12.0-16.0)
[2024-10-11] MEDS: LEVOTHYROXINE 100 MCG TABLET PO (06:06)
[2024-10-11] MEDS: OXYCODONE IR 5 MG TABLET PO ×2 (06:42→11:00)
--- NOTE | 2024-10-11 08:22 | P.DS_ITS ---
History of Present Illness History of Present Illness Chief complaint: OPB Narrative: Kaila is a pleasant 79-year-old female who is postop day#1 s/p left total knee arthroplasty by Dr. Ramos. This morning she reports she is doing well, pain mild-moderate but well controlled w/ oral oxycodone. Denies history of blood clot, plans take ASA b.i.d. for DVT prophylaxis postop. Has postop pain medication at home already, has postop physical therapy appointments already scheduled with [facility]. She does live alone but has a family friend who will be staying with her for the first few days home from the hospital. Has walker and ice machine at home. She davis been up and urinating on her own w/o issue. Denies fever, chills, chest pain, SOB, nausea, vomiting. Discharge Providers Provider Discharge Date: 10/11/24 Primary care physician: Ruben Wheeler DO Consults: 10/10/24 06:00 Consult to Anesthesiology Routine Comment: Consulting Provider: Anesthesiologist Reason for consultation: Regional block for post operative pain control Has provider been notified: No 10/10/24 20:01 Consult to Discharge Planning Routine Comment: Consult to Occupational Therapy Evaluate & Treat Comment: Physician Instructions: Evaluate and treat Consult to Physical Therapy Evaluate & Treat Comment: Physician Instructions: postop TKA protocol Discharge provider: Chantal Christopher PA-C Summary Hospital Course Discharge Diagnosis: Stable status post left total knee arthroplasty Hospital Course: Uncomplicated hospital course Exam Vital Signs (past 8 hours): - 10/11/24 04:00 Temperature 97.6 F Pulse Rate 67 Respiratory Rate 16 Blood Pressure 144/66 H Pulse Oximetry 99 Oxygen Flow Rate 0 Oxygen Delivery Method Room Air Oxygen Flow Rate 0 Narrative Exam Narrative: Patient lying comfortably in bed during our interview today. No acute distress. AOx3. Grossly normal alignment of the LLE with moderate swelling to the left knee/ankle. 5/5 strength with DF, PF, EHL bilaterally. Gross sensation intact throughout bilateral lower extremities. Calves soft and non-tender bilaterally. SCDs are on and functioning Brisk capillary refill, pulses intact. Post-surgical lux dressing clean, dry, functioning and intact over the left knee without drainage. 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 Allergic rhinitis Osteoarthritis (~1997) Obstructive sleep apnea of adult Primary insomnia Lichen sclerosus et atrophicus Vitamin D deficiency Chronic cough Osteopenia HTN (hypertension) (~2009) Hyperlipidemia Surgical History (Updated 10/04/24 @ 10:01 by Jaclyn Tello RN) 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) Hx of LASIK Anesthesia History of hand surgery (~2022) History of breast mammoplasty S/P foot surgery, right S/P UVPP (uvulopalatopharyngoplasty) Hx of bilateral breast reduction surgery S/P trigger finger release History of facelift Hx of bladder repair surgery Hx of partial thyroidectomy Hx of partial thyroidectomy Family History Mother Heart attack Brother History of heart disease Social History household members: none occupational status: previously employed Smoking Status: Never smoker alcohol intake: current substance use type: does not use Discharge Assessment & Plan Assessment and Plan Assessment: Stable status post left total knee arthroplasty Plan of Treatment: 1) Plan to discharge to home today with family friend pending PT evaluation. 2) Continue multimodal pain management with ice to the knee for additional pain control. Has postop pain medication at already. 3) ASA b.i.d. for DVT prophylaxis. 4) Start outpatient physical therapy to work on range of motion and mobility. Weightbearing as tolerated. 5) Keep dressing intact, clean, dry until 2 week postop appointment. No soaking the incision site in pools or tubs. No topical ointments or creams to the incision site. 6) Follow up at [facility] in 2 weeks for a postop appointment and wound check. All patient's questions were answered, they demonstrates understanding and are in agreement with the plan. Call our office if any questions or concerns arise. Discharge Plan Discharge Plan Patient Disposition: Home Discharge orders & Medications Discharge Orders: Discharge (Order); Ordered 10/11/24 Ordered By: Chantal Christopher Prescriptions: New aspirin 81 mg Tablet,Delayed Release (Dr/Ec) 81 mg PO BID Qty: 90 0RF docusate sodium 100 mg Capsule 100 mg PO BID PRN (Reason: Constipation) Qty: 30 0RF ondansetron 4 mg Tablet,Disintegrating 4 mg PO Q4-8H PRN (Reason: Nausea And Vomiting) Qty: 10 0RF oxycodone 5 mg Tablet 5 mg PO Q4-6H PRN (Reason: Pain, Moderate (4-6)) Qty: 30 0RF Continued pantoprazole [Protonix] 40 mg tablet,delayed release (DR/EC) 40 mg PO DAILY Qty: 30 2RF Patient Comments: not taking atorvastatin 10 mg tablet 10 mg PO DAILY Qty: 90 3RF levothyroxine [Synthroid] 100 mcg tablet 100 mcg PO DAILY Qty: 90 3RF lisinopril 10 mg tablet 10 mg PO BEDTIME Qty: 90 3RF meloxicam 15 mg tablet 15 mg PO DAILY Qty: 90 3RF clobetasol 0.05 % cream 1 applic topical DAILY Qty: 60 3RF Premarin 0.625 mg/gram cream 0.3125 mg Vaginal QWEEK Qty: 30 3RF (DME) Resmed Airsense 10 CPAP Qty: 1 Dose Instruction: As directed Patient Comments: Pressure: 5-12 cmH2O DME: [facility] Instructions: As directed Changed acetaminophen 650 mg Tablet Extended Release 650 mg PO Q6H PRN (Reason: Pain) Qty: 90 0RF Follow up/Referrals: Ruben Wheeler DO [Primary Care Provider] - Gudelia Ramos MD [Physician] - 10/25/24 2:00 pm (appt:10/25 @ 2:[address] Ramos @ [facility] maggy herrera please arrive 15 pior to your scheduled appointment time ) Diet/Activity/Treatments Diet: Diet as Tolerated Activity: Weightbearing as tolerated. Walk frequently! Cold/Heat Therapy: Ice to knee as needed for pain. Skin/Wound/Dressing Care Report to your healthcare provider any signs of infection, such as:: chills, fever, night sweats, unusual drainage and unusual redness Dressing: May remove LISSY wrap and shower on 10/13/2024. Leave dressing in place until follow up in office. No bathing or otherwise soaking incision. Call the office if the dressing becomes saturated inside. Visit Report/Discharge Packet Instructions: DI for Knee Replacement, DI for Prescription Opioid Use Stand Alone Forms: Patient Portal/API Discharge Data Primary Care Provider: Ruben Wheeler Attending Provider: Gudelia Ramos
[2024-10-11] MEDS: DOCUSATE 100 MG CAPSULE PO (08:55)
[2024-10-11] MEDS: IBUPROFEN 400 MG TABLET PO (08:55)
[2024-10-11] MEDS: ASPIRIN EC 81 MG TABLET PO (08:55)
--- NOTE | 2024-10-11 09:10 | PT.IIE ---
Current Diagnoses Unilateral primary osteoarthritis, left knee (10/10/24) Surgery Performed Operation Date: 10/10/24 13:45 Actual Procedures p Total Knee Arthroplasty - Robot(Left) - Gudelia Ramos MD Surgical History (Last Updated 10/04/24 @ 10:01 by Jaclyn Tello, RN) Anesthesia History of breast mammoplasty History of facelift History of hand surgery (~2022) 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) Hx of bilateral breast reduction surgery Hx of bladder repair surgery Hx of LASIK Hx of partial thyroidectomy Hx of partial thyroidectomy S/P foot surgery, right S/P trigger finger release S/P UVPP (uvulopalatopharyngoplasty) Medical History (Last Updated 10/04/24 @ 10:16 by Jaclyn Tello, RN) Allergic rhinitis Cataracts, bilateral (~2014) Chicken pox (~1949) Chronic cough Encounter for subsequent annual wellness visit (AWV) in Medicare patient Foot pain Hearing loss (~2021) Hiatal hernia History of COVID-19 (05/2024) History of urinary incontinence HTN (hypertension) (~2009) Hyperlipidemia Hypothyroidism associated with surgical procedure (~1959) Lichen sclerosus et atrophicus Measles Neutropenia Obstructive sleep apnea of adult Osteoarthritis (~1997) Osteopenia Primary insomnia Rosacea Serum sodium decreased Shoulder pain (~2014) Varicosities of leg Vision disorder Vitamin D deficiency Physical Therapy Inpatient Evaluation/Re-Eval M1 PT/OT-IP Prior Functional Status Start: 10/11/24 11:02 Freq: NEEDED Status: Discharge Protocol: Document 10/11/24 11:03 [facility] (Rec: 10/11/24 11:11 [facility] [id number]) Medical Review Prior Functional Status Communication I Mobility and Gait Pt states had pain when walking. Activities of Daily Living and IADL's Pt had pain during ADL and ADL needs. Social History Household Members none Living Arrangements House Number of Floors (Floors) One Floor Number of Stairs To Enter/Railing? 1 step to enter. Home Environment High Toilet,Walk in Shower Home Equipment Front Wheel Walker,Hand Held Shower,Leak Operator Paraffin Plant Additional Social History Comment Pt's friends to stay with her initially and help take her to outpt PT appointments. M1 PT/OT-IP Prior Functional Status Start: 10/11/24 12:41 Freq: NEEDED Status: Active Protocol: Document 10/11/24 09:10 AB (Rec: 10/11/24 12:58 AB [id number]) Medical Review Prior Functional Status Medical History Reviewed Yes Communication able to make needs known Mobility and Gait pt stated that she was independent with all mobilities and ambulation without AD but started using her trekking poles for outdoor /uneven surfaces ambulation Activities of Daily Living and IADL's per OT note: Pt had pain during ADL and ADL needs. Social History Household Members none Living Arrangements House Number of Floors (Floors) One Floor Number of Stairs To Enter/Railing? 1 step to enter Home Environment Standard Height Toilet,Walk in Shower Home Equipment Front Wheel Walker,Shower Seat without Backrest,Hand Held Shower,Leak Operator Paraffin Plant,Grab Bars Near Toilet Additional Social History Comment pt stated that her friend Emmie will stay with her for a few days and afterwards, will have her other friends to assist if needed M2 PT-IP Current Condition Start: 10/11/24 12:41 Freq: NEEDED Status: Active Protocol: Document 10/11/24 09:10 AB (Rec: 10/11/24 12:58 AB [id number]) Physical Therapy Current Condition Current Condition Evaluation Date 10/11/24 Treatment Diagnosis s/p L TKA; difficulty in walking Onset Date 10/10/24 M3 PT-IP Subjective Start: 10/11/24 12:41 Freq: NEEDED Status: Active Protocol: Document 10/11/24 09:10 AB (Rec: 10/11/24 12:58 [id number]) Subjective Physical Therapy Visit Type Type Initial Evaluation Visit Start Time 09:10 Visit Stop Time 10:15 Number of REGISTER REPAIRER Visits 0 Physical Therapy Visit Comments Patient Comments agreeable to do PT Therapy Pain Assessment Pain When Pain Assessed At Rest Pain Present Pain Present Pain Reported Location left knee Intensity 4 Scale Used Numeric (0 - 10) Pain Management Techniques Apply Cold,Distraction, Elevation,Modification of Treatment,Re-positioning, Timing of Activity with Medications M4 PT-IP Mobility and Gait Start: 10/11/24 12:41 Freq: NEEDED Status: Active Protocol: Document 10/11/24 09:10 AB (Rec: 10/11/24 12:58 AB [id number]) PT-Bed Mobility Assessment Supine to Sit Supine to Sit Standby Assistance Sit to Supine Sit to Supine Standby Assistance PT-Transfer Assessment Sit to and From Stand Sit to and from Stand Minimal Assistance,1 Person Assistance,Use of Upper Extremities Equipment Transfer Assistive Device Gait Belt,Front Wheeled Walker Orthotic/Prosthetic Devices or Brace: No Transfers Transfer Destination Bed,Chair Transfer Technique ambulated Transfer Ability Level of Assist Contact Guard Assistance,1 Person Assistance,Use of Upper Extremities Comments Mobility Comments pt supine in bed. pt caregiver / friends in room with her. obtained PLOF and home set up. post-op folder provided and reviewed contents. HEP reviewed with pt. completed heel slides and seated flexion stretching on chair. pt c/o nausea but does not want to take nausea medication. BP sittin/61 .completed sit to stand from chair min A and cues. ambulated from chair to EOB using FWW CGA. continues to c/o nausea. completed sit<>supine SBA with cues provided for techniques. informed caregiver on cueing pt to complete bed mboility. caregiver training conducted. educated caregiver on how to use safety belt and how to assist pt. caregiver was able to put safety belt on pt and assisted pt with sit to stand. pt ambulated out to the hallway. completed up/down platform step using FWW with caregiver assisting. PT educated on techniques. pt c/ o increase nausea and needing to sit down. pt sat on chair. pt asked for nausea medication. nurse aware. pt transfered from chair to w/ c using FWW CGA. assisted pt back to her room. pt refused further activities. call light and table placed next to pt. ice pack provided. Left pt with friends in room. pt and friends without further concerns. Gait Assessment Gait Gait Assistance Required: Contact Guard Assist Distance (Feet) 20 Able to Maintain Weight Bearing Status Yes During Gait Assistive Devices Assistive Device Gait Belt,Front Wheeled Walker Orthotic/Prosthetic Devices or Brace: Yes Gait Deviations General Gait Pattern Antalgic,Decreased Stride Length,Decreased Feet Clearance,Flexed Trunk Factors Limiting Gait Function Factors Limiting Gait Function Decreased Activity Tolerance, Decreased Strength,Limited Range of Motion,Pain,Poor Balance,Poor Safety Awareness Stair Climbing Assessment Evaluation Level of Assist On Stairs Minimal Assistance Devices Stair Climbing Assistive Devices Front Wheel Walker Technique/Endurance Stair Climbing Direction Ascend and Descend Stair Climbing Technique Step to Step Number of Steps Climbed 1 Query Text: Stair Climbing Set # Repetitions (reps) 1 PT-Balance Assessment Sitting Balance and Reactions Static Sitting Balance Ability Normal Dynamic Sitting Balance Ability Good Standing Balance and Reactions Static Standing Balance Ability Fair Dynamic Standing Balance Ability Fair Device Used FWW M5 PT-IP Objective Assessments Start: 10/11/24 12:41 Freq: NEEDED Status: Active Protocol: Document 10/11/24 09:10 AB (Rec: 10/11/24 12:58 AB [id number]) Orientation Orientation/Cognition Level of Alertness Alert Orientation Name,Place,Situation Safety Awareness Decreased Safety Awareness Memory Description No Deficits Noted Gross Range of Motion Lower Extremity ROM Impairments L knee flexion: ~ 70 deg Strength Lower Extremity Strength Assessment Left Impaired Hip 4-/5 Knee 4-/5 Coordination Assessment Gross Coordination Gross Coordination WNL Sensation Assessment Sensation Gross Sensation WNL Muscle Tone Muscle Tone WNL Yes M6 PT-IP Treatment Start: 10/11/24 12:41 Freq: NEEDED Status: Active Protocol: Document 10/11/24 09:10 AB (Rec: 10/11/24 12:58 AB [id number]) Physical Therapy Treatment Exercises Exercises Heel Slides,Seated Knee Flexion/Extension Education Education Provided Precautions,Weight Bearing Status,Post-Op Packet,Safety M7 PT-IP Assessment and Plan Start: 10/11/24 12:41 Freq: NEEDED Status: Active Protocol: Document 10/11/24 09:10 AB (Rec: 10/11/24 12:58 AB [id number]) PT Summary Assessment and Plan Potential Rehabilitation Potential Good Status of Condition at Evaluation Evolving Summary Impairments Pain,ROM,Strength,Balance, Coordination,Sensation,Tone, Cognition,Bed Mobility, Transfers,Gait,Activity Tolerance Assessment Summary pt is a 79 y/o F s/p L TKA POD 1. pt is WBAT LLE. pt requiring CGA to min A for transfers and ambulation using a FWW. pt plans to go home and her friend will be able to assist her. caregiver training conducted and pt's friend was able to assist pt safely. pt plans to go home today. Goals Bed Mobility Goal Independent Transfer Goal Independent,Front Wheeled Walker Gait Goal Independent,Front Wheel Walker Gait Distance 200 Other Goals up/down 1 step using FWW mod I Days to Meet Goals 5 Frequency of Treatment Frequency Of Treatment Twice a Day Treatment Plan Physical Therapy Treatment Plan Bed Mobility Training,Transfer Training,Gait Training, Therapeutic Exercise,Balance Retraining,Post Op Education, Discharge Planning,Hot or Cold Pack,Neuromuscular Re-ed, Coordination Retraining,Manual Therapy Weight Bearing Status Weight Bearing Status Weight Bear as Tolerated Allowed Weight Bearing Amount (enter % LLE WBAT or #) (%) Recommendations To Nursing Amount of Assist Needed 1 Person Assist Discharge Recommendations PT Discharge Recommendations Home with Assistance, Outpatient PT Transportation Needs at Discharge Private Vehicle
--- NOTE | 2024-10-11 09:15 | CM.DANOTE ---
DCP Assessment Note Pt is a 79yo F here POD1 from left knee surgery with Dr. Ramos PCP Ruben Wheeler Payer Medicare and [facility] SCIENCE SPECIALIST reviewed EMR. dc order in. Per RN, pt OOB to commode, no obvious DCP needs. lots of family SCIENCE SPECIALIST entered room and introduced self and role. Pt accompanied by sister Heather (p [phone]) and granddaughter. Normally lives alone but granddaughter to stay with pt for minimum 5 days but able to stay longer. has walker, bath bench, ice machines, and can install grab bars in shower if needed. 1/2 step into house. Denies CM needs. PT/OT pending. P: anticipate home with family support today. no identified barriers to safe dc home at this time. CM team will continue to follow as needed PERLA Linares Discharge Planning/Care Management Advanced directive,confirm from FACILITY Start: 10/10/24 22:22 Freq: Q24H Status: Active Protocol: Document 10/10/24 22:22 AT (Rec: 10/10/24 22:24 AT [id number]) Advance Directive, confirm on record Time 22:24 Person contacted self Copy received No CM Discharge Assessment Start: 10/11/24 09:13 Freq: Status: Active Protocol: Document 10/11/24 09:13 SL (Rec: 10/11/24 09:15 [id number]) Discharge Planning Assessment Assigned [place] PERLA Sanches DPOA/Assigned Designee Name kasandra Mario Contact Information [phone] Advance Directives? Yes Advance Directives on File No History Provided By Patient Prior Living Arrangements House Household Members none Type of transporation used prior to Drives own vehicle admit Independent with ADL's Yes Is patient alert and oriented? Yes DME Already Rented / Owned Bath Bench,FWW / Walker Patient/Family Preference OP PT Therapy Barriers to Discharge No Discharge Plan Home Transportation Arrangement family in POV Referrals Initiated None needed Whiteboard Updated in Patient Room with Yes name and ext. # of Landman Review Status In Process Please Provide Date Initial DC 10/11/24 Assessment Was Performed Next Review Type Continued Stay Review Pre-Anesthesia Assessment Start: 10/04/24 09:24 Freq: Status: Active Protocol: Document 10/04/24 09:24 CAB (Rec: 10/04/24 10:21 [facility] [id number]) Pre-Anesthesia Assessment PAC Comment Phone assessment with patient Preferred Name Kaila Patient Information Reviewed Via Phone Assessment Diagnostic Results BMP/CMP,CBC,EKG Comment Labs/EKG @ 09/21/24 Primary Care Provider Ruben Wheeler Seen Specialist in Last 12 Months Yes Specialist Seen Orthopedist Primary Language Cuban Preferred Language Cuban Training And Development Project Leader Required No Height 149.86 cm Weight 71.214 kg Body Mass Index (BMI) 31.7 Hearing Ability Hearing Impaired,Use of Hearing Aid Visual Assist None Dentition Type Teeth, Natural Present,Dental Implants Barriers to Learning Auditory Hx Anesthesia Reactions No Hx Family Anesthesia Reaction No Hx Malignant Hyperthermia No Hx Blood Transfusions No Hx Blood Transfusion Reaction No Anesthesia Review Requested No Public Safety Police No alcohol intake current alcohol intake frequency a few times a week Smoking Status Never smoker Substance Use Type does not use Pain Present Pain Reported Musculoskeletal Symptoms Abnormal Gait,Joint Pain History of Falling (Recent or History of Yes ) Patient is completely paralyzed or No completely immobile Prosthesis or Orthotic Device Front Wheel Walker Mental Status Oriented to own ability Is patient on oxygen? No Does patient have SHERIFF/SOB Yes: with exertion, deconditioning Hx Sleep Apnea Yes CPAP/BIPAP use prescribed and used routinely Will Bring CPAP/BIPAP DOS Yes Currently Taking a Beta Santana No Can You Climb a Flight of Stairs Without No SOB Hx Chest Pain No Hx SOB Yes: with exertion, deconditioning Hx Syncope or Dizziness No Anti-Coagulant Therapy No Has a Dress Shoe Inspector No Cardiac Testing No Hx Pacemaker/ICD No Pacemaker Rep Required? No Cardiac Clearance Received Not Applicable Diet Type At Home Regular Dysphagia No Gastrointestinal Symptoms None Bladder Pattern Urgency Urinary Catheter Present No Hx Urinary Self Catheterization No Diabetes No HgbA1C 5.8 Date 09/21/24 Patient No Lactating No Presence of External or Internal Medical Yes: CPAP, hearing aids, right Devices knee prosthesis Received a COVID vaccine? Yes Comment No Covid symptoms Marital Status / Lives With none Current Living Arrangements House Number of Floors (Floors) One Floor Number of Stairs To Enter/Railing? 1 Support System Friend(s) Does the Patient Have Assistance After Yes: Friends will stay with pt Surgery at [facility] to assist with care Patient Discharge Plan Description Return Home Comment Pt not advised on length of stay, would like to spend the night Feels Safe in Current Environment Yes Been Physically Hurt or Threatened By a No Person in Current Environment Do you have thoughts of harming yourself None or others? Are you currently considering suicide? No Do you have a plan to hurt yourself or No Plan others? Do You Have Any Spiritual Beliefs That No May Affect Your HC Choices? Do You Have Any Cultural Practices That No May Affect Your HC Choices? Comment Restorationist Who Can We Speak to About Patient's Care Family, friends Identifying Code for Release of Patient Declines to issue Information Health Care Proxy/Next of Kin Kirby (son) Health Care Proxy Emergency Contact Name Heather & Ayo Lang (good friends) Emergency Contact Phone Number Heather: [phone] or [phone] Advance Directives? Yes Advance Directives on File No Power of Injection Molding Operator Yes Power of Injection Molding Operator Name Kirby (son) Power of Injection Molding Operator PAC Instructions Assistance for 24 hours post- op,Bring CPAP/BIPAP,Do not shave/clip surgical site, Durable medical equipment, Medications to take/avoid, Nasal antibiotic,No ETOH/ petroleum product on skin DOS, NPO,Post-op transportation,Pre -surgical wash,Sturdy shoes/ comfortable clothes,Do not bring valuables and remove jewelry
[2024-10-11] MEDS: ONDANSETRON 4 MG ODT PO (10:02)
--- NOTE | 2024-10-11 11:00 | OT.IP.EVAL ---
Current Diagnoses Unilateral primary osteoarthritis, left knee (10/10/24) Surgery Performed Operation Date: 10/10/24 13:45 Actual Procedures p Total Knee Arthroplasty - Robot(Left) - Gudelia Ramos MD Past Medical History (Last Updated 10/04/24 @ 10:16 by Jaclyn Tello, RN) Allergic rhinitis Cataracts, bilateral (~2014) Chicken pox (~1949) Chronic cough Encounter for subsequent annual wellness visit (AWV) in Medicare patient Foot pain Hearing loss (~2021) Hiatal hernia History of COVID-19 (05/2024) History of urinary incontinence HTN (hypertension) (~2009) Hyperlipidemia Hypothyroidism associated with surgical procedure (~1959) Lichen sclerosus et atrophicus Measles Neutropenia Obstructive sleep apnea of adult Osteoarthritis (~1997) Osteopenia Primary insomnia Rosacea Serum sodium decreased Shoulder pain (~2014) Varicosities of leg Vision disorder Vitamin D deficiency Surgical History (Last Updated 10/04/24 @ 10:01 by Jaclyn Tello, RN) Anesthesia History of breast mammoplasty History of facelift History of hand surgery (~2022) 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) Hx of bilateral breast reduction surgery Hx of bladder repair surgery Hx of LASIK Hx of partial thyroidectomy Hx of partial thyroidectomy S/P foot surgery, right S/P trigger finger release S/P UVPP (uvulopalatopharyngoplasty) Occupational Therapy Inpatient Evaluation/Re-Eval M1 PT/OT-IP Prior Functional Status Start: 10/11/24 11:02 Freq: NEEDED Status: Active Protocol: Document 10/11/24 11:03 [facility] (Rec: 10/11/24 11:11 [facility] [id number]) Medical Review Prior Functional Status Communication I Mobility and Gait Pt states had pain when walking. Activities of Daily Living and IADL's Pt had pain during ADL and ADL needs. Social History Household Members none Living Arrangements House Number of Floors (Floors) One Floor Number of Stairs To Enter/Railing? 1 step to enter. Home Environment High Toilet,Walk in Shower Home Equipment Front Wheel Walker,Hand Held Shower,Spring Setter Additional Social History Comment Pt's friends to stay with her initially and help take her to outpt PT appointments. M2 OT-IP Current Condition Start: 10/11/24 11:02 Freq: Status: Active Protocol: Document 10/11/24 11:03 [facility] (Rec: 10/11/24 11:11 [facility] [id number]) Occupational Therapy Current Condition Current Condition Evaluation Date 10/11/24 Treatment Diagnosis S/P L TKA Diagnosis Onset Date 10/10/24 M3 OT- IP Subjective and Pain Start: 10/11/24 11:02 Freq: Status: Active Protocol: Document 10/11/24 11:03 [facility] (Rec: 10/11/24 11:11 [facility] [id number]) OT- Subjective Occupational Therapy Visit Type Type Initial Evaluation Visit Start Time 10:20 Visit Stop Time 11:00 Occupational Therapy Visit Comments Patient Comments Pt wanting to get dressed. Patient/Caregiver Goals TO go home. OT Pain Assessment Pain When Pain Assessed At Rest Pain Present Pain Present Pain Reported Location left knee Intensity 5 Scale Used Numeric (0 - 10) M4 OT- IP ADL's Start: 10/11/24 11:02 Freq: Status: Active Protocol: Document 10/11/24 11:03 [facility] (Rec: 10/11/24 11:11 [facility] [id number]) OT VIB-Xbmw-[place] General Evaluation Self-Feeding Ability Independent OT ADL-Grooming General Evaluation Grooming Ability Standby Assistance Comments OT Grooming Comments Pt able to wash her face after set-up. OT ADL-Oral Care Comments Oral Care Comments NOt performed. OT ADL-Dressing General Eval Upper Body Dressing Ability Minimal Assistance Lower Body Dressing Ability Moderate Assistance Comments OT Dressing Comments Assist to pull down shirt in back and for shoes. Educated pt on use of sock aid. Educated to dress the LLE first and take out last. OT ADL-Toileting Comments OT Toileting Comments Pt will benefit from getting a BSC. Educated to be mindful not to twist her left knee especially during ADL needs. OT ADL-Bathing Comments OT Bathing Comments Pt states to shower at home. Best to get a shower chair. M5 OT- IP IADL's Start: 10/11/24 11:02 Freq: Status: Active Protocol: Document 10/11/24 11:03 [facility] (Rec: 10/11/24 11:11 [facility] [id number]) OT-Instrumental Activities of Daily Living Home Safety Awareness Awareness of Need for Assistance at Home Good Awareness Ability to Problem Solve Emergency Able to Problem Solve Situations Home Safety Comments Pt is a little groggy, best to have her friend assist fro her needs. Meal Preparation Meal Preparation Caregiver Provides Assist Plaster Form Maker Plaster Form Maker Caregiver Provides Assist M6 OT- IP Functional Cognition Start: 10/11/24 11:02 Freq: Status: Active Protocol: Document 10/11/24 11:03 [facility] (Rec: 10/11/24 11:11 [facility] [id number]) Cognitive Factors Limiting Selfcare Function Cognitive Ability Level of Alertness Drowsy Patient Orientation Name,Place,Situation Attention Span Ability Capable of Focused Attention, Capable of Sustained Attention Ability to Follow Commands Able to Follow One Step Commands with Increased Time, Able to Follow One Step Commands with Repetition Cognitive Comments Cognitive Assessment Comments Pt is a bit groggy and needing vc for safety at this time. M7 OT- IP Mobility and Balance Start: 10/11/24 11:02 Freq: Status: Active Protocol: Document 10/11/24 11:03 [facility] (Rec: 10/11/24 11:11 [facility] [id number]) OT-Transfer Assessment Sit to and From Stand Sit to and from Stand Contact Guard Assistance Comments Mobility Comments CGA to stand, pt will need more assist to stand from lower surfaces. Pt feeling groggy but BP remained the same and increased after standing. OT- Balance Assessment Sitting Balance and Reactions Static Sitting Balance Ability Normal Dynamic Sitting Balance Ability Good Standing Balance and Reactions Static Standing Balance Ability Fair M8 OT- IP Objective Assessments Start: 10/11/24 11:02 Freq: Status: Active Protocol: Document 10/11/24 11:03 [facility] (Rec: 10/11/24 11:11 [facility] [id number]) OT Gross Range of Motion Upper Extremity Range of Motion Assessment Right Impaired M9 OT- IP Assessment and Plan Start: 10/11/24 11:02 Freq: Status: Active Protocol: Document 10/11/24 11:03 [facility] (Rec: 10/11/24 11:11 [facility] [id number]) OT Summary Assessment and Plan Potential Rehabilitation Potential Good Analytic Complexity at Evaluation Low Summary OT Impairments Pain,Balance,Functional Mobility,Dressing,Toileting, Bathing,Toilet Transfers, Shower Transfers Progress Towards Goals Progressing Toward Goals Assessment Summary Pt low complexity and main barriers are pain, and will benefit from assist for ADL need at this time. Pt will benefit from getting LB dressing equipment, shower chair, and BSC. Pt to go home with 14/06 assist and outpt PT. Goals Grooming Goal Independent Dressing Goal Independent,Spring Setter,Sock Aid Toileting Goal Independent Bathing Goal Minimal Assistance Toilet Transfer Goal Independent Shower Transfer Goal Standby Assistance Days to Meet Goals 7 Frequency of Treatment Other frequency 5x/week Treatment Plan OT Treatment Plan ADL Training,Functional Mobility,Patient/Family Education,Discharge Planning Discharge Recommendations OT Discharge Recommendations Home with 14/06 Assist Available,Outpatient PT Home Equipment Needs LB dressing equipment, BSC, shower chair Transportation Needs at Discharge Private Vehicle
== END 2024-10-11 11:44 | disposition home or self-care (01) ==
LOC: OR 11:44 → AC 11:45
PROVIDERS: Family Provider Family Medicine; PCP Family Medicine; Referring Provider Orthopaedic Surgery; Visit Provider Orthopaedic Surgery
PROC: 0SRD0JZ Replacement of Left Knee Joint with Synthetic Substitute, Open Approach (ICD-10-PCS; CPT 27447; principal; 2024-10-10 13:45)
DX: M17.12 Unilateral primary osteoarthritis, left knee (principal); G89.18 Other acute postprocedural pain; I10 Essential (primary) hypertension; G47.33 Obstructive sleep apnea (adult) (pediatric); M25.762 Osteophyte, left knee
CPT/HCPCS: 27447; 36415; 64450; 73560; 85014; 85018; 97162; 97165; 97530; 97535; C1776; C9290; J0171; J0690; J2405; J2704; J3010

== ENCOUNTER 2024-12-03 15:42 | Inpatient (IN) | payer MEDICARE, OTHER, SELFPAY ==
[2024-10-10 21:00] VITALS: BMI 31.7
[2024-12-03] VITALS (13 sets, daily range): BP systolic 124–169; BP diastolic 59–93; PULSE 86–103; RESP 16–37; TEMP 36.4–37.5; O2SAT 88–98; BMI 30.2
--- NOTE | 2024-12-03 | PATH_ITS ---
[facility] Accession Number: [id number] No. of containers..01 Tissue . 01 Material submitted: . small bowel - INCARCERATED SMALL BOWEL . 01 Diagnosis: SMALL BOWEL, SEGMENTAL RESECTION: Segment of small bowel with perforation, extensive mucosal ulceration, and transmural hemorrhagic necrosis. Resection margins are viable. No evidence of malignancy. See comment. MRV 12/06/2024 1308 Local . 01 Comment: Differential diagnosis of the ulceration includes ischemia, drug/toxin effects, amongst other etiologies. Clinical correlation is recommended. . 01 Electronically signed: . Qing Hodge MD, Pathologist NPI- [id number] . 01 Gross description: . Received in formalin with two patient identifiers and incarcerated small bowel, are two fragments of tissue. The first is an unoriented segment of bowel, 8.0 cm in length by 1.2 cm in diameter. The serosa is thomas to violaceous with a full thickness defect, 0.9 cm in greatest dimension. One staple line is inked blue, the opposite staple line is inked black, and the defect is inked orange. The mucosa is hardin to brown and ragged with attenuated folds. The long range from 0.1-0.2 cm thick with no diverticula identified. No lymph nodes are identified upon palpation. . The second fragment is hardin to yellow, ragged soft tissue measuring 5.0 x 3.7 x 2.4 cm. The cut surface is hardin to yellow with no distinct lesions identified. Cru[employer] Packer sections are submitted as follows: . A1: Rep margins en face. A2: Area of defect. A3: Additional full thickness sections. A4: Second fragment. ([id number]) /MRV 12/05/2024 1408 Local . 01 Pathologist provided ICD-10: K56.600 . 01 CPT . 878580 Specimen Comment: A courtesy copy of this report has been sent to [facility] Pathology Performed at: [address] [id number] MD Germán White MD Phone: [phone]
--- NOTE | 2024-12-03 17:09 | ED_ITS ---
HPI - Abdominal Pain <Jing Del Rio PA-C - Last Filed: 12/03/24 18:56> General Chief Complaint: Abdominal Pain Stated Complaint: dehydration, urinary problem Time Seen by Provider: 12/03/24 17:08 Source: patient Mode of arrival: Family Vehicle History of Present Illness HPI narrative: Ms. Wells is a very pleasant 79-year-old female with a past medical history of hypertension, hyperlipidemia, hypothyroidism, GLORIA, s/p left knee surgery 8 weeks ago who presents to the emergency department for feeling unwell and with nausea/vomiting x5 days. Patient states her symptoms started 5 days ago with some lower abdominal pain and frequent nausea and vomiting. Reports decreased p.o. intake and she has not had a bowel movement since Wednesday. States that she has pushed out her right lower quadrant hernia from all of the vomiting but it is not hurting her. States she had subjective fevers on Wednesday. She continues to feel more weak and fatigued because she has not been eating and drinking normally. Denies dysuria but states she has been having very minimal and very dark urine. Denies back pain, chest pain, shortness of breath. Reports 1 episode of coughing earlier this week. Related Data Home Medications Medication Instructions Recorded Confirmed Resmed Airsense 10 CPAP #1 ea 03/22/19 10/10/24 Previous Rx's Medication Instructions Recorded atorvastatin 10 mg tablet 10 mg PO DAILY #90 tabs 09/25/24 clobetasol 0.05 % topical cream 1 applic topical DAILY #60 grams 09/25/24 conjugated estrogens 0.625 mg/gram 0.3125 mg vaginal QWEEK #30 grams 09/25/24 vaginal cream (Premarin) levothyroxine 100 mcg tablet 100 mcg PO DAILY #90 tabs 09/25/24 (Synthroid) lisinopril 10 mg tablet 10 mg PO BEDTIME #90 tabs 09/25/24 meloxicam 15 mg tablet 15 mg PO DAILY #90 tabs 09/25/24 pantoprazole 40 mg tablet,delayed 40 mg PO DAILY #30 tabs 10/03/24 release (Protonix) acetaminophen 650 mg 650 mg PO Q6H PRN Pain #90 tabs 10/11/24 tablet,extended release aspirin 81 mg tablet,delayed 81 mg PO BID #90 tabs 10/11/24 release docusate sodium 100 mg capsule 100 mg PO BID PRN Constipation #30 10/11/24 caps ondansetron 4 mg disintegrating 4 mg PO Q4-8H PRN Nausea And 10/11/24 tablet Vomiting #10 tabs oxycodone 5 mg tablet 5 mg PO Q4-6H PRN Pain, Moderate 10/11/24 (4-6) #30 tabs Allergies Allergy/AdvReac Type Severity Reaction Status Date / Time sulfamethoxazole Allergy Intermediate Delayed Verified 10/10/24 12:24 [From Bactrim] skin rash trimethoprim [From Bactrim] Allergy Intermediate Delayed Verified 10/10/24 12:24 skin rash clavulanic acid AdvReac Severe It made Verified 10/10/24 12:24 [From Augmentin] me sick codeine [CODEINE] AdvReac Mild NAUSEA/VOMI Verified 10/10/24 12:24 TING Review of Systems <Jing Del Rio PA-C - Last Filed: 12/03/24 18:56> Review of Systems ROS Unobtainable: All systems reviewed & are unremarkable except as noted in HPI and below Patient History <Jing Del Rio PA-C - Last Filed: 12/03/24 18:56> Medical History History of COVID-19 (05/2024) Hiatal hernia Serum sodium decreased Encounter for subsequent annual wellness visit (AWV) in Medicare patient Vision disorder Rosacea Shoulder pain (~2014) Foot pain Measles Chicken pox (~1949) Hearing loss (~2021) Cataracts, bilateral (~2014) History of urinary incontinence Neutropenia 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 Allergic rhinitis Osteoarthritis (~1997) Obstructive sleep apnea of adult Primary insomnia Lichen sclerosus et atrophicus Vitamin D deficiency Chronic cough Osteopenia HTN (hypertension) (~2009) Hyperlipidemia Surgical History 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) Hx of LASIK Anesthesia History of hand surgery (~2022) History of breast mammoplasty S/P foot surgery, right S/P UVPP (uvulopalatopharyngoplasty) Hx of bilateral breast reduction surgery S/P trigger finger release History of facelift Hx of bladder repair surgery Hx of partial thyroidectomy Hx of partial thyroidectomy Family History Mother Heart attack Brother History of heart disease Social History household members: none occupational status: previously employed Smoking Status: Never smoker alcohol intake: current substance use type: does not use Smoking Status: Never smoker alcohol intake frequency: a few times a week Exam <ROB Ro Last Filed: 12/03/24 18:56> Narrative Exam Narrative: GENERAL: 79 year old patient appears stated age. Well-developed patient, in no acute distress. HEAD: Atraumatic. Normocephalic. NECK: Trachea midline. Cervical ROM intact. CARDIOVASCULAR: Regular rate and rhythm. RESPIRATORY: ?Nonlabored respirations. ?Speaking in clear, full sentences. ?Clear to auscultation. ? GASTROINTESTINAL: Firm mass palpated in right lower quadrant of abdomen. Erythema and increased warmth overlying this area of the abdomen and the suprapubic region. Abdomen is protuberant but nontender. No rebound or guarding. EXTREMITIES: No edema or joint tenderness. Left knee surgical incision clean, dry, intact. BACK: Nontender without deformity or crepitance. No flank tenderness. NEURO: AOx3. ?Clear speech. ?Moves all 4 extremities appropriately. Initial Vital Signs Initial Vital Signs: Vital Signs Temperature 97.6 F 12/03/24 16:11 Pulse Rate 90 12/03/24 16:11 Respiratory Rate 16 12/03/24 16:11 Blood Pressure 162/70 H 12/03/24 16:11 Pulse Oximetry 98 12/03/24 16:11 Oxygen Delivery Method Room Air 12/03/24 16:11 <Dami Hutchinson DO - Last Filed: 12/04/24 00:14> Initial Vital Signs Initial Vital Signs: Vital Signs Temperature 97.6 F 12/03/24 16:11 Pulse Rate 90 12/03/24 16:11 Respiratory Rate 16 12/03/24 16:11 Blood Pressure 162/70 H 12/03/24 16:11 Pulse Oximetry 98 12/03/24 16:11 Oxygen Delivery Method Room Air 12/03/24 16:11 Course <ROB Ro Last Filed: 12/03/24 18:56> Orders Ordered: ED Orders 12/03/24 17:19 CT abdomen pelvis w con Stat XR chest 1V Stat 12/03/24 17:50 Complete Blood Count AUTO DIFF Stat Comprehensive Metabolic Panel Stat Free T4, Direct Thyroxine Stat Lactate (Lactic Acid) Stat Lipase Stat PTT Partial Thromboplastin Smith Stat Procalcitonin Stat Prothrombin Time INR Stat TSH [Thyroid Stimulating Hormone] Stat 12/03/24 18:29 EKG-12 Lead Stat 12/03/24 18:45 Blood Culture Stat 12/03/24 18:55 Covid-19 + FLU A/B + RSV - PCR Stat 12/03/24 19:30 Consult to General Surgery Stat 12/03/24 19:47 Education, smoking cessation ONGOING 12/03/24 19:57 BMP [Basic Metabolic Panel] Stat 12/03/24 20:31 Urinalysis and Microscopic Stat Acetaminophen (Acetaminophen 325 Mg Tablet) 650 mg PO Q6H PRN PRN Reason: Fever/Mild Pain (1-3) Hydrocodone Bitart/Acetaminophen (Hydrocodone/Acet 5/325 Tablet) 1 tab PO Q4H PRN PRN Reason: Pain, Moderate (4-6) Aspirin (Aspirin Ec 81 Mg Tablet) 81 mg PO BID LANDRY Atorvastatin Calcium (Atorvastatin 20 Mg Tablet) 10 mg PO BEDTIME LANDRY Fentanyl (Fentanyl 100 Mcg/2 Ml Inj) 0 mcg IV Q5MIN PRN PRN Reason: Pain, Mild (1-3) Fentanyl (Fentanyl 100 Mcg/2 Ml Inj) 0 mcg IV Q5M PRN PRN Reason: Pain, Moderate (4-6) Fentanyl (Fentanyl 100 Mcg/2 Ml Inj) 0 mcg IV Q5M PRN PRN Reason: Pain, Severe (7-10) Hydromorphone HCl (Hydromorphone 0.5 Mg Inj) 0.5 mg IV Q2H PRN PRN Reason: Pain, Severe (7-10) Hydromorphone HCl (Hydromorphone 1 Mg Inj) 0 mg IV Q5MIN PRN PRN Reason: Pain, Mild (1-3) Hydromorphone HCl (Hydromorphone 1 Mg Inj) 0 mg IV Q5MIN PRN PRN Reason: Pain, Moderate (4-6) Last Admin: 12/03/24 23:26 Dose: 0.5 mg Documented By: Admin: 12/03/24 23:09 Dose: 0.5 mg Documented By: CG Hydromorphone HCl (Hydromorphone 1 Mg Inj) 0 mg IV Q5MIN PRN PRN Reason: Pain, Severe (7-10) Sodium Chloride (Normal Saline 0.9%) 1,000 mls @ 100 mls/hr IV CONT LANDRY Last Admin: 12/03/24 21:41 Dose: 100 mls/hr Documented By: BENITEZ Lactated Ringer's (Lactated Ringers) 1,000 mls @ 42 mls/hr IV CONT LANDRY Last Admin: 12/03/24 20:50 Dose: 42 mls/hr Documented By: TONE Levothyroxine Sodium (Levothyroxine 100 Mcg Tablet) 100 mcg PO 0600 LANDRY Naloxone HCl (Naloxone 0.4 Mg/Ml Vial) 0.2 mg IV Q2MIN PRN PRN Reason: Opiate Reversal Ondansetron HCl (Ondansetron 4 Mg/2 Ml Inj) 4 mg IV Q8HR PRN PRN Reason: Nausea And Vomiting Last Admin: 12/03/24 23:08 Dose: 4 mg Documented By: TONE Ondansetron HCl (Ondansetron 4 Mg/2 Ml Inj) 4 mg IV NOW PRN PRN Reason: Nausea And Vomiting Oxycodone HCl (Oxycodone Ir 5 Mg Tablet) 5 mg PO PACUNOW PRN PRN Reason: Mild or moderate pain Discontinued Medications Bupivacaine HCl/Epinephrine Bitart (Bupivacaine 0.5% W/ Epi (Pf) 30 Ml Vial) 30 ml INJ NOW ONE Stop: 12/03/24 22:37 Last Admin: 12/03/24 22:36 Dose: 30 ml Documented By: PH Sodium Chloride (Normal Saline 0.9%) 1,000 mls @ 1,000 mls/hr IV BOLUS ONE Stop: 12/03/24 18:18 Last Infusion: 12/03/24 20:00 Dose: Infused Documented By: Admin: 12/03/24 18:05 Dose: 1,000 mls/hr Documented By: SPF Piperacillin Sod/Tazobactam (Sod 4.5 gm/ Sodium Chloride) 100 mls @ 200 mls/hr IV NOW ONE Stop: 12/03/24 19:31 Last Infusion: 12/03/24 21:26 Dose: Infused Documented By: Admin: 12/03/24 20:14 Dose: 200 mls/hr Documented By: CATHY Albumin Human (Alburx) 12.5 gm in 250 mls @ 250 mls/hr IV NOW ONE Stop: 12/03/24 21:32 Calcium Chloride 1,000 mg/ (Sodium Chloride) 110 mls @ 110 mls/hr IV NOW ONE Stop: 12/03/24 21:54 Non-Formulary Medication (Atorvastatin) 10 mg PO DAILY LANDRY Ondansetron HCl (Ondansetron 4 Mg/2 Ml Inj) 4 mg IV NOW ONE Stop: 12/03/24 17:11 Last Admin: 12/03/24 18:05 Dose: 4 mg Documented By: JOSEPH Vital Signs Vital signs: Vital Signs - 8 hr 12/03/24 18:29 12/03/24 19:11 12/03/24 19:30 Pulse Rate 90 96 H 90 Respiratory Rate 18 19 25 H Blood Pressure 137/77 Pulse Oximetry 97 88 L 98 Oxygen Delivery Method Room Air Room Air <Dami Hutchinson, - Last Filed: 12/04/24 00:14> Orders Ordered: ED Orders 12/03/24 17:19 CT abdomen pelvis w con Stat XR chest 1V Stat 12/03/24 17:50 Complete Blood Count AUTO DIFF Stat Comprehensive Metabolic Panel Stat Free T4, Direct Thyroxine Stat Lactate (Lactic Acid) Stat Lipase Stat PTT Partial Thromboplastin Smith Stat Procalcitonin Stat Prothrombin Time INR Stat TSH [Thyroid Stimulating Hormone] Stat 12/03/24 18:29 EKG-12 Lead Stat 12/03/24 18:45 Blood Culture Stat 12/03/24 18:55 Covid-19 + FLU A/B + RSV - PCR Stat 12/03/24 19:30 Consult to General Surgery Stat 12/03/24 19:47 Education, smoking cessation ONGOING 12/03/24 19:57 BMP [Basic Metabolic Panel] Stat 12/03/24 20:31 Urinalysis and Microscopic Stat Acetaminophen (Acetaminophen 325 Mg Tablet) 650 mg PO Q6H PRN PRN Reason: Fever/Mild Pain (1-3) Hydrocodone Bitart/Acetaminophen (Hydrocodone/Acet 5/325 Tablet) 1 tab PO Q4H PRN PRN Reason: Pain, Moderate (4-6) Aspirin (Aspirin Ec 81 Mg Tablet) 81 mg PO BID REPLACED BY [facility] Atorvastatin Calcium (Atorvastatin 20 Mg Tablet) 10 mg PO BEDTIME REPLACED BY [facility] Fentanyl (Fentanyl 100 Mcg/2 Ml Inj) 0 mcg IV Q5MIN PRN PRN Reason: Pain, Mild (1-3) Fentanyl (Fentanyl 100 Mcg/2 Ml Inj) 0 mcg IV Q5M PRN PRN Reason: Pain, Moderate (4-6) Fentanyl (Fentanyl 100 Mcg/2 Ml Inj) 0 mcg IV Q5M PRN PRN Reason: Pain, Severe (7-10) Hydromorphone HCl (Hydromorphone 0.5 Mg Inj) 0.5 mg IV Q2H PRN PRN Reason: Pain, Severe (7-10) Hydromorphone HCl (Hydromorphone 1 Mg Inj) 0 mg IV Q5MIN PRN PRN Reason: Pain, Mild (1-3) Hydromorphone HCl (Hydromorphone 1 Mg Inj) 0 mg IV Q5MIN PRN PRN Reason: Pain, Moderate (4-6) Last Admin: 12/03/24 23:26 Dose: 0.5 mg Documented By: Admin: 12/03/24 23:09 Dose: 0.5 mg Documented By: CG Hydromorphone HCl (Hydromorphone 1 Mg Inj) 0 mg IV Q5MIN PRN PRN Reason: Pain, Severe (7-10) Sodium Chloride (Normal Saline 0.9%) 1,000 mls @ 100 mls/hr IV CONT REPLACED BY [facility] Last Admin: 12/03/24 21:41 Dose: 100 mls/hr Documented By: Lactated Ringer's (Lactated Ringers) 1,000 mls @ 42 mls/hr IV CONT REPLACED BY [facility] Last Admin: 12/03/24 20:50 Dose: 42 mls/hr Documented By: Levothyroxine Sodium (Levothyroxine 100 Mcg Tablet) 100 mcg PO 0600 REPLACED BY [facility] Naloxone HCl (Naloxone 0.4 Mg/Ml Vial) 0.2 mg IV Q2MIN PRN PRN Reason: Opiate Reversal Ondansetron HCl (Ondansetron 4 Mg/2 Ml Inj) 4 mg IV Q8HR PRN PRN Reason: Nausea And Vomiting Last Admin: 12/03/24 23:08 Dose: 4 mg Documented By: CG Ondansetron HCl (Ondansetron 4 Mg/2 Ml Inj) 4 mg IV NOW PRN PRN Reason: Nausea And Vomiting Oxycodone HCl (Oxycodone Ir 5 Mg Tablet) 5 mg PO PACUNOW PRN PRN Reason: Mild or moderate pain Discontinued Medications Bupivacaine HCl/Epinephrine Bitart (Bupivacaine 0.5% W/ Epi (Pf) 30 Ml Vial) 30 ml INJ NOW ONE Stop: 12/03/24 22:37 Last Admin: 12/03/24 22:36 Dose: 30 ml Documented By: MARLO Sodium Chloride (Normal Saline 0.9%) 1,000 mls @ 1,000 mls/hr IV BOLUS ONE Stop: 12/03/24 18:18 Last Infusion: 12/03/24 20:00 Dose: Infused Documented By: Admin: 12/03/24 18:05 Dose: 1,000 mls/hr Documented By: JOSEPH Piperacillin Sod/Tazobactam (Sod 4.5 gm/ Sodium Chloride) 100 mls @ 200 mls/hr IV NOW ONE Stop: 12/03/24 19:31 Last Infusion: 12/03/24 21:26 Dose: Infused Documented By: Admin: 12/03/24 20:14 Dose: 200 mls/hr Documented By: CATHY Albumin Human (Alburx) 12.5 gm in 250 mls @ 250 mls/hr IV NOW ONE Stop: 12/03/24 21:32 Calcium Chloride 1,000 mg/ (Sodium Chloride) 110 mls @ 110 mls/hr IV NOW ONE Stop: 12/03/24 21:54 Non-Formulary Medication (Atorvastatin) 10 mg PO DAILY LANDRY Ondansetron HCl (Ondansetron 4 Mg/2 Ml Inj) 4 mg IV NOW ONE Stop: 12/03/24 17:11 Last Admin: 12/03/24 18:05 Dose: 4 mg Documented By: JOSEPH Vital Signs Vital signs: Vital Signs - 8 hr 12/03/24 18:29 12/03/24 19:11 12/03/24 19:30 Pulse Rate 90 96 H 90 Respiratory Rate 18 19 25 H Blood Pressure 137/77 Pulse Oximetry 97 88 L 98 Oxygen Delivery Method Room Air Room Air MDM - Abdominal Pain <Jing Del Rio PA-C - Last Filed: 12/03/24 18:56> Medical Records Attestation: I reviewed the patient's medical records. Lab Data 12/03/24 17:50 12/03/24 19:57 Labs: Lab Results 12/03/24 12/03/24 Range/Units 17:50 18:55 WBC 15.3 H (4.5-11.0) X10^3/uL RBC 3.78 L (4.0-5.2) X10^6/uL Hgb 11.1 L (12.0-16.0) g/dL Hct 32.7 L (36-46) % MCV 86.6 (80-100) fL MCH 29.3 (26-34) PG MCHC 33.9 (30-36) % RDW 14.1 (11.6-14.8) % Plt Count 379 (150-400) X10^3/uL Neut % (Auto) 92.0 H (50-75) % Lymph % (Auto) 2.0 L (25-40) % Hitchcock % (Auto) 5.2 (3-14) % Eos % (Auto) 0.4 L (2-4) % Baso % (Auto) 0.4 (0-2) % Neut # (Auto) 99513 H (0889-3234) /uL Lymph # (Auto) 300 L (5020-2349) /uL Hitchcock # (Auto) 800 (0-900) /uL Eos # (Auto) 100 (0-450) /uL Baso # (Auto) 100 (0-100) /uL PT 12.8 H (9.4-12.5) SECONDS INR 1.1 (0.9-1.3) APTT 29 (25.1-36.5) SECONDS Sodium 112 L* (137-145) mmol/L Potassium 3.5 (3.4-5.1) mmol/L Chloride 74 L* (98-107) mmol/L Carbon Dioxide 29 (22-32) mmol/L BUN 24 H (7-17) mg/dL Creatinine 0.76 (0.52-1.04) mg/dL Estimated GFR > 60 (>60) mL/min BUN/Creatinine Ratio 31.6 H (6-22) Glucose 126 H (80-110) mg/dL Lactate 1.4 (0.7-2.1) mmol/L Calcium 8.5 (8.4-10.2) mg/dL Total Bilirubin 1.3 (0.2-1.3) mg/dL AST 31 (14-36) IU/L ALT 24 (<35) IU/L Alkaline Phosphatase 130 H (38-126) U/L Total Creatine Kinase 39 (30-135) U/L Troponin I < 0.012 (0.01-0.034) ng/mL Total Protein 7.1 (6.3-8.2) g/dL Albumin 4.0 (3.5-5.0) g/dL Globulin 3.1 (1.7-4.1) g/dL Albumin/Globulin Ratio 1.3 (1.0-2.8) Lipase 43 (23-300) U/L Procalcitonin 0.378 (<0.5) ng/mL TSH 6.25 H (0.47-4.68) uIU/mL Free T4 1.61 (0.78-2.19) ng/dL SARS-CoV-2 (PCR) Negative (Negative) Influenza A (RT-PCR) Flu a negative (NEGATIVE) Influenza B (RT-PCR) Flu b negative (NEGATIVE) RSV (PCR) Negative (Negative) Point of care testing: Urine Dip Bedside Urine Glucose Negative Bedside Urine Bilirubin + 1 Bedside Urine Ketone ++ 40 Urine Specific [place] 1.030 Bedside Urine Occult Blood + Bedside Urine pH 6.0 Bedside Urine Protein ++ 100 Bedside Urine Urobilinogen 1+ 2mg Bedside Urine Nitrite - Negative Bedside Urine Leukocytes +++ 500 Esterase Imaging Data Chest x-ray: Radiologist's Impression: PROCEDURE: XR CHEST 1V INDICATIONS: sepsis concern ; abd pain N/V TECHNIQUE: One view of the chest was acquired. COMPARISON: Located Within [facility], , XR CHEST 2V, 03/19/2024, 15:46. FINDINGS: Surgical changes and devices: Right shoulder arthroplasty hardware is seen. Lungs and pleura: On this semiupright portable chest examination, no large pneumothorax or large pleural effusions are seen. No focal infiltrates are seen. Mediastinum: Mediastinal contours appear normal. Heart size is mildly enlarged. Bones and chest wall: No suspicious bony lesions. Age-appropriate bony degenerative changes are seen. Overlying soft tissues appear unremarkable. IMPRESSION: Cardiomegaly, without a focal pulmonary abnormality. [facility] Narrative Medical decision making narrative: 79-year-old female with a past medical history of hypertension, hyperlipidemia, hypothyroidism, GLORIA, s/p left knee surgery 8 weeks ago who presents to the emergency department for feeling unwell and with nausea/vomiting x5 days. Differential diagnosis includes but is not limited to JAZMIN, electrolyte abnormalities, dehydration, incarcerated hernia, strangulated hernia, necrotic hernia, UTI, abdominal wall cellulitis, abdominal wall abscess, viral syndrome, gastroenteritis, bowel obstruction, urinary obstruction, etc. On exam patient is in no acute distress, nontoxic appearing. She has no abdominal pain or tenderness but she does have a hard mass in the right lower quadrant of her abdomen with overlying erythema and warmth. Will obtain labs including lactate, blood cultures, flu swab, treat with fluids and Zofran. We will obtain CT abdomen pelvis with IV contrast. Unable to obtain bladder scan due to hernia. Patient's workup was initiated in the fast-track department of the ED, however she will be moved to the main ED for higher level of care once a bed is available. EKG ordered. Patient's lab revealed WBC count of 15.3, hemoglobin 11.1, hematocrit 32.7. Neutrophils 92%. Critical sodium of 112, chloride of 74. Her potassium is 3.5, BUN 24 creatinine 0.76. At this time patient has been transferred to the main emergency department and she is still pending her CT imaging. I discussed the case with the nighttime attending physician, Dr. Hutchinson, who will continue the patient's care, imaging still pending at this time. <Dami Hutchinson, DO - Last Filed: 12/04/24 00:14> Lab Data Labs: Lab Results 12/03/24 12/03/24 Range/Units 17:50 18:55 WBC 15.3 H (4.5-11.0) X10^3/uL RBC 3.78 L (4.0-5.2) X10^6/uL Hgb 11.1 L (12.0-16.0) g/dL Hct 32.7 L (36-46) % MCV 86.6 (80-100) fL MCH 29.3 (26-34) PG MCHC 33.9 (30-36) % RDW 14.1 (11.6-14.8) % Plt Count 379 (150-400) X10^3/uL Neut % (Auto) 92.0 H (50-75) % Lymph % (Auto) 2.0 L (25-40) % Hitchcock % (Auto) 5.2 (3-14) % Eos % (Auto) 0.4 L (2-4) % Baso % (Auto) 0.4 (0-2) % Neut # (Auto) 36261 H (2048-1047) /uL Lymph # (Auto) 300 L (0683-9571) /uL Hitchcock # (Auto) 800 (0-900) /uL Eos # (Auto) 100 (0-450) /uL Baso # (Auto) 100 (0-100) /uL PT 12.8 H (9.4-12.5) SECONDS INR 1.1 (0.9-1.3) APTT 29 (25.1-36.5) SECONDS Sodium 112 L* (137-145) mmol/L Potassium 3.5 (3.4-5.1) mmol/L Chloride 74 L* (98-107) mmol/L Carbon Dioxide 29 (22-32) mmol/L BUN 24 H (7-17) mg/dL Creatinine 0.76 (0.52-1.04) mg/dL Estimated GFR > 60 (>60) mL/min BUN/Creatinine Ratio 31.6 H (6-22) Glucose 126 H (80-110) mg/dL Lactate 1.4 (0.7-2.1) mmol/L Calcium 8.5 (8.4-10.2) mg/dL Total Bilirubin 1.3 (0.2-1.3) mg/dL AST 31 (14-36) IU/L ALT 24 (<35) IU/L Alkaline Phosphatase 130 H (38-126) U/L Total Creatine Kinase 39 (30-135) U/L Troponin I < 0.012 (0.01-0.034) ng/mL Total Protein 7.1 (6.3-8.2) g/dL Albumin 4.0 (3.5-5.0) g/dL Globulin 3.1 (1.7-4.1) g/dL Albumin/Globulin Ratio 1.3 (1.0-2.8) Lipase 43 (23-300) U/L Procalcitonin 0.378 (<0.5) ng/mL TSH 6.25 H (0.47-4.68) uIU/mL Free T4 1.61 (0.78-2.19) ng/dL SARS-CoV-2 (PCR) Negative (Negative) Influenza A (RT-PCR) Flu a negative (NEGATIVE) Influenza B (RT-PCR) Flu b negative (NEGATIVE) RSV (PCR) Negative (Negative) Point of care testing: Urine Dip Bedside Urine Glucose Negative Bedside Urine Bilirubin + 1 Bedside Urine Ketone ++ 40 Urine Specific [place] 1.030 Bedside Urine Occult Blood + Bedside Urine pH 6.0 Bedside Urine Protein ++ 100 Bedside Urine Urobilinogen 1+ 2mg Bedside Urine Nitrite - Negative Bedside Urine Leukocytes +++ [address] scan - abdomen/pelvis: Radiologist's Impression: PROCEDURE: CT ABDOMEN PELVIS W CON INDICATIONS: N/V; RLQ hernia with overlying erythema TECHNIQUE: After the administration of intravenous contrast, axial sections acquired from the lung bases to the pubic symphysis. Coronal and sagittal reformats were performed. For radiation dose reduction, the following was used: automated exposure control, adjustment of mA and/or kV according to patient size. Scan is performed during Valsalva maneuver. COMPARISON: Located Within [facility], CR, XR CHEST 1V, 12/03/2024, 17:24. Located Within [facility], CT, CT ABDOMEN PELVIS W CON, 06/24/2023, 13:52. FINDINGS: Image quality: Diagnostic. Lower Chest: There is a moderate hiatal hernia, with wall thickening seen involving the distal esophagus. ABDOMEN: Liver: No solid mass. Gallbladder: No radiopaque gallstones or wall thickening. Biliary ducts: No biliary dilation. Pancreas: No ductal dilation. Spleen: Size is within normal limits. Adrenal Glands: No adrenal nodules. Kidneys and Ureters: No hydronephrosis. No solid mass. No complex renal cystic lesion which requires follow up. Stomach and Bowel: Abnormally dilated loops of fluid-filled small bowel can be seen, measuring up to 3.3 cm. This leads down to a right groin hernia, where there is a transition point seen. Distal to this point, the small bowel is decompressed. The the stomach is full of fluid. No significant colonic abnormality is seen. Peritoneum: No abnormal intraperitoneal fluid. No free air. Ventral Wall: No significant ventral hernia. Abdominal Nodes: No retroperitoneal or mesenteric adenopathy by size criteria. Vessels: Aorta and inferior vena cava are normal in size. PELVIS: Pelvic Organs: Calcified uterine fibroids are seen. Adnexal Bladder: No bladder wall thickening, accounting for underdistention. Pelvic Nodes: Mild prominence of right groin lymph nodes can be seen. Miscellaneous: There is a right groin hernia seen, which contains a dilated loop of small bowel entering at and a decompressed loop of small bowel exiting it. Surrounding inflammatory change can be seen. Bones: No aggressive osseous abnormality. Moderate levoconvex lumbar scoliosis is seen. Multiple levels of lumbar spine degenerative change can be seen. IMPRESSION: Right groin hernia containing a small bowel loop, causing a small-bowel obstruction, with a transition point identified within the hernia. There is a moderate hiatal hernia, with wall thickening involving the distal esophagus. Please correlate with esophagitis/reflux. Additional findings: Moderate levoconvex lumbar scoliosis Calcified uterine fibroids Note: Case discussed by telephone with Dr. Hutchinson at 7:37 p.m. [place] time on December 03, 2024. [facility] Narrative Medical decision making narrative: 79-year-old female with a past medical history of hypertension, hyperlipidemia, hypothyroidism, GLORIA, s/p left knee surgery 8 weeks ago who presents to the emergency department for feeling unwell and with nausea/vomiting x5 days. Differential diagnosis includes but is not limited to JAZMIN, electrolyte abnormalities, dehydration, incarcerated hernia, strangulated hernia, necrotic hernia, UTI, abdominal wall cellulitis, abdominal wall abscess, viral syndrome, gastroenteritis, bowel obstruction, urinary obstruction, etc. On exam patient is in no acute distress, nontoxic appearing. She has no abdominal pain or tenderness but she does have a hard mass in the right lower quadrant of her abdomen with overlying erythema and warmth. Will obtain labs including lactate, blood cultures, flu swab, treat with fluids and Zofran. We will obtain CT abdomen pelvis with IV contrast. Unable to obtain bladder scan due to hernia. Patient's workup was initiated in the fast-track department of the ED, however she will be moved to the main ED for higher level of care once a bed is available. EKG ordered. Patient's lab revealed WBC count of 15.3, hemoglobin 11.1, hematocrit 32.7. Neutrophils 92%. Critical sodium of 112, chloride of 74. Her potassium is 3.5, BUN 24 creatinine 0.76. At this time patient has been transferred to the main emergency department and she is still pending her CT imaging. I discussed the case with the nighttime attending physician, Dr. Hutchinson, who will continue the patient's care, imaging still pending at this time. Dr Hutchinson: CT scan shows incarcerated inguinal hernia with associated bowel obstruction. Discussed the case with Dr. Singh who evaluated the patient here in the emergency department of the plan to take her to the operating room for surgical fixation. Patient was also hyponatremic which I suspect is because of her dehydration. Discussed the case with Dr. Robbins hospitalist who is on-call who will admit the patient after surgery. I did discuss the findings of the CT scan in the need for admission with the patient. She expressed understanding and agreement with the plan. Discharge Plan Departure Patient Disposition: Admitted As Inpatient Clinical Impression: Hyponatremia, Complete small bowel obstruction Admit Date/Time: 12/03/24 19:49 Admit Provider: Quinn Robbins
--- NOTE | 2024-12-03 17:19 | DI.RAD.S_ITS ---
PROCEDURE: XR CHEST 1V INDICATIONS: sepsis concern ; abd pain N/V TECHNIQUE: One view of the chest was acquired. COMPARISON: [facility], CR, XR CHEST 2V, 03/19/2024, 15:46. FINDINGS: Surgical changes and devices: Right shoulder arthroplasty hardware is seen. Lungs and pleura: On this semiupright portable chest examination, no large pneumothorax or large pleural effusions are seen. No focal infiltrates are seen. Mediastinum: Mediastinal contours appear normal. Heart size is mildly enlarged. Bones and chest wall: No suspicious bony lesions. Age-appropriate bony degenerative changes are seen. Overlying soft tissues appear unremarkable. IMPRESSION: Cardiomegaly, without a focal pulmonary abnormality. Dictated by: Derik Sanchez M.D. on 12/03/2024 at 16:45 Approved by: Derik Sanchez M.D. on 12/03/2024 at 16:45
--- NOTE | 2024-12-03 17:19 | DI.CT.S_ITS ---
PROCEDURE: CT ABDOMEN PELVIS W CON INDICATIONS: N/V; RLQ hernia with overlying erythema TECHNIQUE: After the administration of intravenous contrast, axial sections acquired from the lung bases to the pubic symphysis. Coronal and sagittal reformats were performed. For radiation dose reduction, the following was used: automated exposure control, adjustment of mA and/or kV according to patient size. Scan is performed during Valsalva maneuver. COMPARISON: [facility], CR, XR CHEST 1V, 12/03/2024, 17:24. [facility], CT, CT ABDOMEN PELVIS W CON, 06/24/2023, 13:52. FINDINGS: Image quality: Diagnostic. Lower Chest: There is a moderate hiatal hernia, with wall thickening seen involving the distal esophagus. ABDOMEN: Liver: No solid mass. Gallbladder: No radiopaque gallstones or wall thickening. Biliary ducts: No biliary dilation. Pancreas: No ductal dilation. Spleen: Size is within normal limits. Adrenal Glands: No adrenal nodules. Kidneys and Ureters: No hydronephrosis. No solid mass. No complex renal cystic lesion which requires follow up. Stomach and Bowel: Abnormally dilated loops of fluid-filled small bowel can be seen, measuring up to 3.3 cm. This leads down to a right groin hernia, where there is a transition point seen. Distal to this point, the small bowel is decompressed. The the stomach is full of fluid. No significant colonic abnormality is seen. Peritoneum: No abnormal intraperitoneal fluid. No free air. Ventral Wall: No significant ventral hernia. Abdominal Nodes: No retroperitoneal or mesenteric adenopathy by size criteria. Vessels: Aorta and inferior vena cava are normal in size. PELVIS: Pelvic Organs: Calcified uterine fibroids are seen. Adnexal Bladder: No bladder wall thickening, accounting for underdistention. Pelvic Nodes: Mild prominence of right groin lymph nodes can be seen. Miscellaneous: There is a right groin hernia seen, which contains a dilated loop of small bowel entering at and a decompressed loop of small bowel exiting it. Surrounding inflammatory change can be seen. Bones: No aggressive osseous abnormality. Moderate levoconvex lumbar scoliosis is seen. Multiple levels of lumbar spine degenerative change can be seen. IMPRESSION: Right groin hernia containing a small bowel loop, causing a small-bowel obstruction, with a transition point identified within the hernia. There is a moderate hiatal hernia, with wall thickening involving the distal esophagus. Please correlate with esophagitis/reflux. Additional findings: Moderate levoconvex lumbar scoliosis Calcified uterine fibroids Note: Case discussed by telephone with Dr. Hutchinson at 7:37 p.m. [place] time on December 03, 2024. Dictated by: Derik Sanchez M.D. on 12/03/2024 at 18:34 Approved by: Derik Sanchez M.D. on 12/03/2024 at 18:39
[2024-12-03] MEDS: SODIUM CHLORIDE 0.9% 1,000 ML 1000 ML IV (18:05)
[2024-12-03] MEDS: ONDANSETRON 4 MG/2 ML INJ IV ×2 (18:05→23:08)
[2024-12-03 18:10] LABS: Add Manual Diff / Slide Review NO; Basophils Absolute Auto 100 /uL (0-100); Basophils Percent Auto 0.4 % (0-2); Eosinophils Absolute Auto 100 /uL (0-450); Eosinophils Percent Auto 0.4 % (2-4); Hematocrit 32.7 % (36-46); Hemoglobin 11.1 g/dL (12.0-16.0); Lymphocytes Absolute Auto 300 /uL (1100-4500); Mean Corpuscular HGB Conc 33.9 % (30-36); Mean Corpuscular Hemoglobin 29.3 PG (26-34); Mean Corpuscular Volume 86.6 fL (80-100); Monocytes Absolute Auto 800 /uL (0-900); Monocytes Percent Auto 5.2 % (3-14); Neutrophils Absolute Auto 14100 /uL (1500-7000); Platelet Count 379 X10^3/uL (150-400); Red Blood Cell Count 3.78 X10^6/uL (4.0-5.2); Red Cell Distribution Width 14.1 % (11.6-14.8); White Blood Cell Count 15.3 X10^3/uL (4.5-11.0)
[2024-12-03 18:15] LABS: INR 1.1 (0.9-1.3); Prothrombin Time 12.8 SECONDS (9.4-12.5)
[2024-12-03 18:19] LABS: Lactate (Lactic Acid) 1.4 mmol/L (0.7-2.1)
[2024-12-03 18:23] LABS: PTT Partial Thromboplastin Tim 29 SECONDS (25.1-36.5)
[2024-12-03 18:24] LABS: Alanine Aminotransferase 24 IU/L (<35); Albumin Globulin Ratio 1.3 (1.0-2.8); Alkaline Phosphatase 130 U/L (38-126); Aspartate Aminotransferase 31 IU/L (14-36); BUN Creatinine Ratio 31.6 (6-22); Bilirubin Total 1.3 mg/dL (0.2-1.3); Blood Urea Nitrogen 24 mg/dL (7-17); Calcium 8.5 mg/dL (8.4-10.2); Carbon Dioxide 29 mmol/L (22-32); Estimated Glomerular Filt Rate > 60 mL/min (>60); Globulin 3.1 g/dL (1.7-4.1); Glucose 126 mg/dL (80-110); HEMOLYSIS < 15 (0-50); Lipase 43 U/L (23-300); Potassium 3.5 mmol/L (3.4-5.1); Total Protein 7.1 g/dL (6.3-8.2)
--- NOTE | 2024-12-03 18:29 | EKG_ITS ---
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
[2024-12-03 18:33] LABS: Sodium 112 mmol/L (137-145)
[2024-12-03 18:34] LABS: Chloride 74 mmol/L (98-107)
--- NOTE | 2024-12-03 18:40 | PC.NURSE ---
Pt stated she only gave a couple of drops in her urine sample. CHEMICAL PLANT WORKER at bedside to do bladder scan, but was unable to get a bladder scan reading d/t abdominal / groin distention. CHERYL Del Rio notified.
[2024-12-03 18:51] LABS: Procalcitonin 0.378 ng/mL (<0.5)
--- NOTE | 2024-12-03 19:43 | P.HP_ITS ---
History of Present Illness History of Present Illness Date Patient Seen: 12/03/24 Time Patient Seen: 19:43 Date of Onset of Symptoms: 11/29/24 Chief complaint: dehydration, urinary problem Narrative: 79-year-old white female with abdominal pain nausea and vomiting since Wednesday. She has a known right inguinal hernia for over a year. She has had increasing nausea and inability to move her bowels since Wednesday. Today she has just been sipping on Pedialyte. She presents to the ER and found to have a leukocytosis and reddening of the skin over her right groin. CT scan demonstrates a bowel obstruction at the hernia. 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 Allergic rhinitis Osteoarthritis (~1997) Obstructive sleep apnea of adult Primary insomnia Lichen sclerosus et atrophicus Vitamin D deficiency Chronic cough Osteopenia HTN (hypertension) (~2009) Hyperlipidemia Surgical History 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) Hx of LASIK Anesthesia History of hand surgery (~2022) History of breast mammoplasty S/P foot surgery, right S/P UVPP (uvulopalatopharyngoplasty) Hx of bilateral breast reduction surgery S/P trigger finger release History of facelift Hx of bladder repair surgery Hx of partial thyroidectomy Hx of partial thyroidectomy Family History Mother Heart attack Brother History of heart disease Social History household members: none occupational status: previously employed Smoking Status: Never smoker alcohol intake: current substance use type: does not use Meds Home Medications and Allergies Home Medications Medication Instructions Recorded Confirmed Type Resmed Airsense 10 CPAP #1 ea 03/22/19 10/10/24 History atorvastatin 10 mg tablet 10 mg PO DAILY #90 tabs 09/25/24 10/10/24 Rx clobetasol 0.05 % topical cream 1 applic topical DAILY #60 grams 09/25/24 10/04/24 Rx conjugated estrogens 0.625 mg/gram 0.3125 mg vaginal QWEEK #30 grams 09/25/24 10/04/24 Rx vaginal cream (Premarin) levothyroxine 100 mcg tablet 100 mcg PO DAILY #90 tabs 09/25/24 10/10/24 Rx (Synthroid) lisinopril 10 mg tablet 10 mg PO BEDTIME #90 tabs 09/25/24 10/10/24 Rx meloxicam 15 mg tablet 15 mg PO DAILY #90 tabs 09/25/24 10/10/24 Rx pantoprazole 40 mg tablet,delayed 40 mg PO DAILY #30 tabs 10/03/24 10/04/24 Rx release (Protonix) acetaminophen 650 mg 650 mg PO Q6H PRN Pain #90 tabs 10/11/24 10/04/24 Rx tablet,extended release aspirin 81 mg tablet,delayed 81 mg PO BID #90 tabs 10/11/24 Rx release docusate sodium 100 mg capsule 100 mg PO BID PRN Constipation #30 10/11/24 Rx caps ondansetron 4 mg disintegrating 4 mg PO Q4-8H PRN Nausea And 10/11/24 Rx tablet Vomiting #10 tabs oxycodone 5 mg tablet 5 mg PO Q4-6H PRN Pain, Moderate 10/11/24 Rx (4-6) #30 tabs Allergies Allergy/AdvReac Type Severity Reaction Status Date / Time sulfamethoxazole Allergy Intermediate Delayed Verified 10/10/24 12:24 [From Bactrim] skin rash trimethoprim [From Bactrim] Allergy Intermediate Delayed Verified 10/10/24 12:24 skin rash clavulanic acid AdvReac Severe It made Verified 10/10/24 12:24 [From Augmentin] me sick codeine [CODEINE] AdvReac Mild NAUSEA/VOMI Verified 10/10/24 12:24 TING Review of Systems Review of Systems ROS: Yes All systems reviewed with the patient and are negative except as otherwise documented Exam Vital Signs (past 8 hours): - 12/03/24 16:11 01/12/25 18:29 Temperature 97.6 F Pulse Rate 90 90 Respiratory Rate 16 18 Blood Pressure 162/70 H 137/77 Pulse Oximetry 98 97 Oxygen Delivery Method Room Air Room Air Oxygen Delivery Method Room Air Narrative Exam Narrative: Gen: NAD, sitting comfortably in bed, appears well HEENT: Sclera are anicteric, head is normocephalic and atraumatic, trachea is midline. CV: RRR, no JVD Resp: clear to auscultation bilaterally, equal chest wall movement bilaterally Abd: soft, cellulitis over the right groin with tender incarcerated and likely strangulated right inguinal hernia Ext: no edema, full range of motion Neuro: Cranial nerves II-XII grossly intact, no focal deficits Skin: No erythema or ecchymosis Objective Labs 12/03/24 17:50 12/03/24 17:50 Labs: Laboratory Results - last 24 hr 12/03/24 17:50 WBC 15.3 H RBC 3.78 L Hgb 11.1 L Hct 32.7 L MCV 86.6 MCH 29.3 MCHC 33.9 RDW 14.1 Plt Count 379 Neut % (Auto) 92.0 H Lymph % (Auto) 2.0 L [place] % (Auto) 5.2 Eos % (Auto) 0.4 L Baso % (Auto) 0.4 Neut # (Auto) 50822 H Lymph # (Auto) 300 L [place] # (Auto) 800 Eos # (Auto) 100 Baso # (Auto) 100 PT 12.8 H INR 1.1 APTT 29 Sodium 112 L* Potassium 3.5 Chloride 74 L* Carbon Dioxide 29 BUN 24 H Creatinine 0.76 Estimated GFR > 60 BUN/Creatinine Ratio 31.6 H Glucose 126 H Lactate 1.4 Calcium 8.5 Total Bilirubin 1.3 AST 31 ALT 24 Alkaline Phosphatase 130 H Total Protein 7.1 Albumin 4.0 Globulin 3.1 Albumin/Globulin Ratio 1.3 Lipase 43 Procalcitonin 0.378 Assessment & Plan Assessment and plan (1) Complete small bowel obstruction: Status: Acute (2) Inguinal hernia with obstruction: Status: Acute (3) Hyponatremia: Status: Acute Assessment & Plan narrative: Given the patient's leukocytosis and skin changes, urgent surgery is needed. We will take the patient to the operating room tonight. Risks, benefits, and alternatives explained to the patient, including the possibility for need for bowel resection, potential inability to use mesh to give a more durable repair for the hernia, and high likelihood of recurrence of the hernia were all explained. Patient agrees to proceed with open right inguinal hernia repair with or without mesh, possible bowel resection. Medical team for management of hyponatremia and hypothyroidism Time-Based Coding :: [TOTAL MINUTES] spent with patient and on the chart (including review of chart, obtaining history, exam, reviewing outside data, placing orders, documenting exam and treatment plan, and counseling patient) on [DATE].
[2024-12-03] MEDS: PIPERACILLIN/TAZO 4.5 GM in SODIUM CHLORIDE 0.9% 100 ML IV (20:14)
[2024-12-03 20:22] LABS: BUN Creatinine Ratio 34.4 (6-22); Blood Urea Nitrogen 21 mg/dL (7-17); Calcium 7.7 mg/dL (8.4-10.2); Carbon Dioxide 29 mmol/L (22-32); Chloride 77 mmol/L (98-107); Estimated Glomerular Filt Rate > 60 mL/min (>60); Glucose 112 mg/dL (80-110); HEMOLYSIS < 15 (0-50); Potassium 3.5 mmol/L (3.4-5.1)
[2024-12-03 20:27] LABS: Sodium 113 mmol/L (137-145)
[2024-12-03 20:31] LABS: Free T4, Direct Thyroxine 1.61 ng/dL (0.78-2.19)
[2024-12-03 20:32] LABS: Influenza A - CEPHEID Flu A NEGATIVE (NEGATIVE); Influenza B - CEPHEID Flu B NEGATIVE (NEGATIVE); Respiratory Syncytial Virus Negative (Negative)
[2024-12-03 20:33] LABS: COVID-19 CEPHEID 4-PLEX PCR Negative (Negative)
[2024-12-03 20:43] LABS: Appearance Urine UA CLEAR; Bilirubin Urine UA 1+ (NEGATIVE); Color Urine UA YELLOW; Glucose Urine UA NEGATIVE (Negative); Ketones Urine UA 1+ (NEGATIVE); Leukocyte Esterase Urine UA NEGATIVE (NEGATIVE); Nitrite Urine UA NEGATIVE (Negative); Occult Blood Urine UA NEGATIVE (Negative); Protein Urine UA 1+ (Negative)
[2024-12-03 20:45] LABS: Thyroid Stimulating Hormone 6.25 uIU/mL (0.47-4.68)
[2024-12-03] MEDS: LACTATED RINGERS 1,000 ML 42 ML IV (20:50)
[2024-12-03 21:17] LABS: Amorphous Sediment Urine 1+; Bacteria Urine None Seen; Culture Indicated Urine Cult Not Indicated; Ictotest Urine Negative (Negative); RBC Urine None Seen (0-5/HPF); Squamous Epithelial Cell Urine 1-5 /HPF (0-5/HPF); Urine Volume 10mL (spun); WBC Urine None Seen (0-5/HPF)
--- NOTE | 2024-12-03 21:35 | SUR.OPER ---
Supine on padded OR bed, head on pillow, arms secured on padded arm boards at <90 degrees abduction, legs uncrossed, safety belt at thigh, tape over blanket over lower legs.
[2024-12-03] MEDS: SODIUM CHLORIDE 0.9% 1,000 ML 100 ML IV (21:41)
[2024-12-03 22:09] LABS: Creatine Kinase 39 U/L (30-135)
[2024-12-03 22:21] LABS: Troponin I < 0.012 ng/mL (0.01-0.034)
[2024-12-03] MEDS: BUPIVACAINE 0.5% W/ EPI (PF) 30 ML VIAL INJ (22:36)
--- NOTE | 2024-12-03 22:46 | P.OP_ITS ---
Operative Date/Time/Diagnoses Date of procedure: 12/03/24 Time of procedure: 22:46 Pre-op diagnosis: Strangulated inguinal hernia Post-op diagnosis: same (Gangrenous small bowel with perforation) Procedure & Clinicians Procedure: 1. Small bowel resection with anastomosis 2. Open repair of right femoral hernia, primary repair with suture Same procedure as scheduled: Yes Indications: Patient presented with bowel obstruction x5 days with leukocytosis and cellulitis concerning for strangulated small bowel Surgeon: Fuad Casanova Yes if Unassisted: No Anesthesia Type: General Operative Notes Findings: Gangrenous segment of small bowel with perforation and peritonitis Closure Type: primary Specimen(s): other (1. Small bowel 2. Right groin swab for culture) Estimated Blood Loss (mL): 25 Blood products transfused: none Procedure in detail: Patient was brought to the operating room suite from PACU following the ER. Consent was obtained. Patient was intubated and an OG was placed which returned significant gastric contents. The right groin was prepped and draped in the usual fashion. Total of 30 mL of 0.5% Marcaine were used for ilioinguinal nerve block and field block. A transverse incision was made in the right groin and carried down to the external oblique fibers. The external oblique fibers were followed down to the femoral space. There was gangrenous foul-smelling hernia sac in the space. This hernia sac was opened revealing gangrenous perforated small bowel with peritonitis. The inguinal floor was opened with Bovie electrocautery. The small bowel was delivered through the wound. 55 mm GI stapler was fired across healthy proximal and distal small bowel. The mesentery was clamped and ligated with silk sutures. The gangrenous specimen is small bowel was passed off the field. A [id number] functional end to end anti peristaltic anastomosis was fashioned with 55 mm stapler. The common enterotomy was closed with 55 mm stapler. The wound was copiously irrigated. Attention was then turned to the hernia sac which was also gangrenous. This was excised. I suspect that a portion of the hernia sac was also the bladder. This was repaired with running 2-0 PDS. A Jami style repair was then performed using the 2-0 PDS. The ileal inguinal ligament was brought down to Malick's ligament. A transition stitch was made over to the ileal pubic tract and this was run laterally and back medially in 2 layers. A channel drain was placed in the area of the gangrene and brought out below the incision. A silk drain stitch was used.. Selam's was closed with 3-0 Vicryl. Skin was closed with 4 Monocryl a nd Dermabond. Patient had some suspected ST segment changes at the start of the case. She will be watched in the ICU under guarded condition. Complications: none Post-operative Condition: critical Disposition: PACU Plan for aftercare: ICU
--- NOTE | 2024-12-03 22:58 | EKG_ITS ---
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
[2024-12-03] MEDS: HYDROMORPHONE 1 MG INJ IV ×2 (23:09→23:26)
--- NOTE | 2024-12-03 23:52 | PM.HP.1 ---
History of Present Illness History of Present Illness Chief complaint: dehydration, urinary problem Narrative: 79 year old female with past medical history of hypothyroidism, HTN, HLD, GLORIA and recent left knee surgery 8 weeks ago presents with nausea and vomiting. Per the patient's report, over the last 5 days, the patient letty been feeling overall sick with nausea and vomiting. The patient also has lower abdominal pain that is sharp and intermittent. The patient symptoms was severe yesterday and the patient has not able to drink or eat any food yesterday. The patient feels fatigue and generalized weakness. The patient otherwise denies any GIB, fever, chills, chest pain, shortness of breath, coughing or dysuria. In our ER, the patient was found to have incarcerated inguinal hernia per CT. Lab shows no sign of sepsis (though WBC 15 but normal lactic acid) but sodium was 112 with low chloride. General surgery was consulted and patient was given NS, IV Zosyn and Zofran. General surgery plan for urgent need for surgery. Continue antibiotics according to general surgery reccomendation. [facility] Medical History History of COVID-19 (05/2024) Hiatal hernia Serum sodium decreased Encounter for subsequent annual wellness visit (AWV) in Medicare patient Vision disorder Rosacea Shoulder pain (~2014) Foot pain Measles Chicken pox (~1949) Hearing loss (~2021) Cataracts, bilateral (~2014) History of urinary incontinence Neutropenia 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 Allergic rhinitis Osteoarthritis (~1997) Obstructive sleep apnea of adult Primary insomnia Lichen sclerosus et atrophicus Vitamin D deficiency Chronic cough Osteopenia HTN (hypertension) (~2009) Hyperlipidemia Surgical History 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) Hx of LASIK Anesthesia History of hand surgery (~2022) History of breast mammoplasty S/P foot surgery, right S/P UVPP (uvulopalatopharyngoplasty) Hx of bilateral breast reduction surgery S/P trigger finger release History of facelift Hx of bladder repair surgery Hx of partial thyroidectomy Hx of partial thyroidectomy Family History Mother Heart attack Brother History of heart disease Social History household members: none occupational status: previously employed Smoking Status: Never smoker alcohol intake: current substance use type: does not use Meds Home Medications and Allergies Home Medications Medication Instructions Recorded Confirmed Type Resmed Airsense 10 CPAP #1 ea 03/22/19 10/10/24 History atorvastatin 10 mg tablet 10 mg PO DAILY #90 tabs 09/25/24 10/10/24 Rx clobetasol 0.05 % topical cream 1 applic topical DAILY #60 grams 09/25/24 10/04/24 Rx conjugated estrogens 0.625 mg/gram 0.3125 mg vaginal QWEEK #30 grams 09/25/24 10/04/24 Rx vaginal cream (Premarin) levothyroxine 100 mcg tablet 100 mcg PO DAILY #90 tabs 09/25/24 10/10/24 Rx (Synthroid) lisinopril 10 mg tablet 10 mg PO BEDTIME #90 tabs 09/25/24 10/10/24 Rx meloxicam 15 mg tablet 15 mg PO DAILY #90 tabs 09/25/24 10/10/24 Rx pantoprazole 40 mg tablet,delayed 40 mg PO DAILY #30 tabs 10/03/24 10/04/24 Rx release (Protonix) acetaminophen 650 mg 650 mg PO Q6H PRN Pain #90 tabs 10/11/24 10/04/24 Rx tablet,extended release aspirin 81 mg tablet,delayed 81 mg PO BID #90 tabs 10/11/24 Rx release docusate sodium 100 mg capsule 100 mg PO BID PRN Constipation #30 10/11/24 Rx caps ondansetron 4 mg disintegrating 4 mg PO Q4-8H PRN Nausea And 10/11/24 Rx tablet Vomiting #10 tabs oxycodone 5 mg tablet 5 mg PO Q4-6H PRN Pain, Moderate 10/11/24 Rx (4-6) #30 tabs Allergies Allergy/AdvReac Type Severity Reaction Status Date / Time sulfamethoxazole Allergy Intermediate Delayed Verified 10/10/24 12:24 [From Bactrim] skin rash trimethoprim [From Bactrim] Allergy Intermediate Delayed Verified 10/10/24 12:24 skin rash clavulanic acid AdvReac Severe It made Verified 10/10/24 12:24 [From Augmentin] me sick codeine [CODEINE] AdvReac Mild NAUSEA/VOMI Verified 10/10/24 12:24 TING Review of Systems Review of Systems ROS: Yes All systems reviewed with the patient and are negative except as otherwise documented Exam Vital Signs (past 8 hours): - 12/03/24 16:11 12/03/24 18:29 12/03/24 19:11 Temperature 97.6 F Pulse Rate 90 90 96 H Respiratory Rate 16 18 19 Blood Pressure 162/70 H 137/77 Pulse Oximetry 98 97 88 L Oxygen Delivery Method Room Air Room Air Oxygen Flow Rate 12/03/24 19:30 12/03/24 19:55 12/03/24 19:55 Temperature Pulse Rate 90 92 H Respiratory Rate 25 H 29 H Blood Pressure 167/93 H Pulse Oximetry 98 96 Oxygen Delivery Method Room Air Oxygen Flow Rate 12/03/24 20:00 12/03/24 20:00 12/03/24 20:30 Temperature Pulse Rate 90 103 H Respiratory Rate 29 H 37 H Blood Pressure 169/81 H Pulse Oximetry 97 96 Oxygen Delivery Method Room Air Oxygen Flow Rate 12/03/24 20:30 12/03/24 20:30 12/03/24 22:52 Temperature 99.5 F 98.4 F Pulse Rate 93 H 86 Respiratory Rate 16 20 Blood Pressure 165/77 H 161/83 H 132/61 Pulse Oximetry 97 95 Oxygen Delivery Method Room Air Nasal Cannula Oxygen Flow Rate 3 12/03/24 23:02 12/03/24 23:06 12/03/24 23:16 Temperature Pulse Rate 90 89 86 Respiratory Rate 20 20 17 Blood Pressure 148/59 H 160/64 H 126/68 Pulse Oximetry 94 95 95 Oxygen Delivery Method Nasal Cannula Nasal Cannula Nasal Cannula Oxygen Flow Rate 3 3 3 12/03/24 23:21 Temperature Pulse Rate 87 Respiratory Rate 18 Blood Pressure 132/60 Pulse Oximetry 96 Oxygen Delivery Method Nasal Cannula Oxygen Flow Rate 3 Oxygen Delivery Method Nasal Cannula Oxygen Flow Rate 3 Narrative Exam Narrative: Physical Exam: GENERAL: The patient is not in any acute distressed. Awake and alert. HEENT: Nonicteric sclerae, PERRLA, EOMI. Oropharynx clear. Moist mucous membranes. Conjunctivae appear well perfused. HEART: Regular rate and rhythm without murmurs. No lower extremities edema. LUNGS: Clear to auscultation bilaterally. No wheezing, crackles or rhonchi ABDOMEN: Soft, positive bowel sounds, tenderness in lower abdomen without rebound SKIN: No rash, no excessive bruising, petechiae, or purpura. NEUROLOGIC: AxO x 3. Cranial nerves II-XII intact without motor/sensory deficit. Objective Labs 12/03/24 17:50 12/03/24 19:57 Labs: Laboratory Results - last 24 hr 12/03/24 12/03/24 12/03/24 17:50 18:55 19:57 WBC 15.3 H RBC 3.78 L Hgb 11.1 L Hct 32.7 L MCV 86.6 MCH 29.3 MCHC 33.9 RDW 14.1 Plt Count 379 Neut % (Auto) 92.0 H Lymph % (Auto) 2.0 L [place] % (Auto) 5.2 Eos % (Auto) 0.4 L Baso % (Auto) 0.4 Neut # (Auto) 15411 H Lymph # (Auto) 300 L [place] # (Auto) 800 Eos # (Auto) 100 Baso # (Auto) 100 PT 12.8 H INR 1.1 APTT 29 Sodium 112 L* 113 L* Potassium 3.5 3.5 Chloride 74 L* 77 L Carbon Dioxide 29 29 BUN 24 H 21 H Creatinine 0.76 0.61 Estimated GFR > 60 > 60 BUN/Creatinine Ratio 31.6 H 34.4 H Glucose 126 H 112 H Lactate 1.4 Calcium 8.5 7.7 L Total Bilirubin 1.3 AST 31 ALT 24 Alkaline Phosphatase 130 H Total Creatine Kinase 39 Troponin I < 0.012 Total Protein 7.1 Albumin 4.0 Globulin 3.1 Albumin/Globulin Ratio 1.3 Lipase 43 Procalcitonin 0.378 TSH 6.25 H Free T4 1.61 Urine Color Urine Appearance Urine pH Ur Specific [place] Urine Protein Urine Glucose (UA) Urine Ketones Urine Occult Blood Urine Nitrate Urine Bilirubin Ur Bilirubin Confirm Urine Urobilinogen Ur Leukocyte Esterase Urine RBC Urine WBC Ur Squamous Epith Cells Amorphous Sediment Urine Bacteria Ur Culture Indicated? Vol Urine Centrifuged SARS-CoV-2 (PCR) Negative Influenza A (RT-PCR) Flu a negative Influenza B (RT-PCR) Flu b negative RSV (PCR) Negative 12/03/24 20:31 WBC RBC Hgb Hct MCV MCH MCHC RDW Plt Count Neut % (Auto) Lymph % (Auto) [place] % (Auto) Eos % (Auto) Baso % (Auto) Neut # (Auto) Lymph # (Auto) [place] # (Auto) Eos # (Auto) Baso # (Auto) PT INR APTT Sodium Potassium Chloride Carbon Dioxide BUN Creatinine Estimated GFR BUN/Creatinine Ratio Glucose Lactate Calcium Total Bilirubin AST ALT Alkaline Phosphatase Total Creatine Kinase Troponin I Total Protein Albumin Globulin Albumin/Globulin Ratio Lipase Procalcitonin TSH Free T4 Urine Color Yellow Urine Appearance Clear Urine pH 6.0 Ur Specific [place] 1.010 Urine Protein 1+ H Urine Glucose (UA) Negative Urine Ketones 1+ H Urine Occult Blood Negative Urine Nitrate Negative Urine Bilirubin 1+ H Ur Bilirubin Confirm Negative Urine Urobilinogen 2.0 H Ur Leukocyte Esterase Negative Urine RBC None seen Urine WBC None seen Ur Squamous Epith Cells 1-5 /hpf Amorphous Sediment 1+ Urine Bacteria None seen Ur Culture Indicated? Cult not indicated Vol Urine Centrifuged 10ml (spun) SARS-CoV-2 (PCR) Influenza A (RT-PCR) Influenza B (RT-PCR) RSV (PCR) Assessment & Plan Assessment & Plan narrative: Incarcerated inguinal hernia. Admit the patient to medical telememtry inpatient. General surgery will take the patient straight from OR. The patient is medically stable for OR. Will continue however to correct sodium. Hyponatremia hypovolemia. Likely from dehydration since patient has severe nausea and vomiting. NS and monitor sodium closely. Note patient sodium is 112 -> 113 after some NS. Will also follow up TSH/T4. Also patient mentation is normal and oriented x 4 without any seizure. Hypothyroidism. Resume home Synthroid in AM. Follow up TSH/T4 ordered. HTN. Monitor BP and resume home medications accordingly. HLD. Resume home medications when patient can take PO. DVT PPx SCDs and defer chemical PPx to general surgery Code status full code Disposition home in 2-3 days Time-Based Coding :: [TOTAL MINUTES] spent with patient and on the chart (including review of chart, obtaining history, exam, reviewing outside data, placing orders, documenting exam and treatment plan, and counseling patient) on [DATE].
[2024-12-04] VITALS (62 sets, daily range): BP systolic 88–141; BP diastolic 49–79; PULSE 93–115; RESP 17–45; TEMP 36.4–37.3; O2SAT 90–99
[2024-12-04 00:41] LABS: Blood Urea Nitrogen 16 mg/dL (7-17); Calcium 7.8 mg/dL (8.4-10.2); Carbon Dioxide 25 mmol/L (22-32); Chloride 85 mmol/L (98-107); Creatine Kinase 56 U/L (30-135); Estimated Glomerular Filt Rate > 60 mL/min (>60); Glucose 130 mg/dL (80-110); HEMOLYSIS 30 (0-50); Potassium 3.6 mmol/L (3.4-5.1)
[2024-12-04 00:53] LABS: Troponin I < 0.012 ng/mL (0.01-0.034)
[2024-12-04] MEDS: PIPERACILLIN/TAZO 3.375 GM in SODIUM CHLORIDE 0.9% 100 ML IV ×3 (00:53→16:55)
[2024-12-04 00:55] LABS: Sodium 116 mmol/L (137-145)
[2024-12-04 02:20] LABS: MRSA (Nasal) PCR NOT DETECTED (Not Detect)
[2024-12-04] MEDS: HYDROMORPHONE 0.5 MG INJ IV ×2 (02:21→08:38)
[2024-12-04 05:12] LABS: Hematocrit 33.3 % (36-46); Hemoglobin 11.3 g/dL (12.0-16.0); Mean Corpuscular Hemoglobin 29.7 PG (26-34); Mean Corpuscular Volume 87.3 fL (80-100); Platelet Count 355 X10^3/uL (150-400); Red Blood Cell Count 3.82 X10^6/uL (4.0-5.2); Red Cell Distribution Width 14.2 % (11.6-14.8)
[2024-12-04 05:13] LABS: Add Manual Diff / Slide Review YES
[2024-12-04 05:14] LABS: White Blood Cell Count 1.6 X10^3/uL (4.5-11.0)
[2024-12-04 05:16] LABS: Alanine Aminotransferase 16 IU/L (<35); Albumin 2.7 g/dL (3.5-5.0); Alkaline Phosphatase 82 U/L (38-126); Aspartate Aminotransferase 24 IU/L (14-36); BUN Creatinine Ratio 31.4 (6-22); Bilirubin Total 1.2 mg/dL (0.2-1.3); Blood Urea Nitrogen 16 mg/dL (7-17); Calcium 7.5 mg/dL (8.4-10.2); Carbon Dioxide 24 mmol/L (22-32); Chloride 87 mmol/L (98-107); Estimated Glomerular Filt Rate > 60 mL/min (>60); Globulin 2.6 g/dL (1.7-4.1); Glucose 100 mg/dL (80-110); HEMOLYSIS < 15 (0-50); Potassium 3.4 mmol/L (3.4-5.1); Total Protein 5.3 g/dL (6.3-8.2)
[2024-12-04 05:36] LABS: Sodium 117 mmol/L (137-145)
[2024-12-04 05:55] LABS: Neutrophils Absolute Manual 1136 /uL (3000-5900); Total Cells Counted 100
[2024-12-04 05:56] LABS: Platelet Estimate Adequate on smear; RBC Morphology Normal Morphology
--- NOTE | 2024-12-04 08:23 | PM.PN.1 ---
Subjective Subjective Date Patient Seen: 12/04/24 Interval history: She is seen today to follow-up her hyponatremia, hypothyroidism and abdominal surgery. The sodium level is 117 with a potassium of 3.4. The white blood count is 1.6 with a hemoglobin of 11.3. The albumin is 2.7 and the TSH is 6.25. She has a nasogastric tube in the right nostril. She seems to be somewhat lonely and frightened by this sudden illness. Exam Vital Signs (past 8 hours): - 12/04/24 00:30 12/04/24 01:47 12/04/24 02:00 Temperature 97.9 F 97.6 F Pulse Rate 102 H 102 H Respiratory Rate 20 18 Blood Pressure 138/60 114/56 L Pulse Oximetry 92 96 Oxygen Flow Rate 0 12/04/24 02:00 12/04/24 02:30 12/04/24 02:30 Temperature Pulse Rate 103 H 101 H Respiratory Rate 18 17 Blood Pressure 123/60 Pulse Oximetry 96 93 Oxygen Flow Rate 12/04/24 03:00 12/04/24 03:00 12/04/24 03:30 Temperature Pulse Rate 104 H 104 H Respiratory Rate 18 20 Blood Pressure 124/57 L Pulse Oximetry 95 97 Oxygen Flow Rate 12/04/24 04:00 12/04/24 04:00 12/04/24 04:09 Temperature Pulse Rate 101 H 104 H Respiratory Rate 18 22 Blood Pressure 117/53 L Pulse Oximetry 96 97 Oxygen Flow Rate 12/04/24 04:09 12/04/24 04:10 12/04/24 04:10 Temperature 98.8 F Pulse Rate 104 H Respiratory Rate 22 Blood Pressure 111/58 L 113/56 L Pulse Oximetry 96 Oxygen Flow Rate 12/04/24 04:30 12/04/24 05:00 12/04/24 05:00 Temperature Pulse Rate 103 H 104 H Respiratory Rate 19 21 Blood Pressure 108/54 L Pulse Oximetry 96 96 Oxygen Flow Rate 12/04/24 05:30 12/04/24 06:00 12/04/24 06:00 Temperature Pulse Rate 102 H 104 H Respiratory Rate 20 20 Blood Pressure 114/58 L Pulse Oximetry 95 95 Oxygen Flow Rate Fraction of Inspired Oxygen 28 SaO2/FiO2 Ratio 328 Oxygen Delivery Method Nasal Cannula Oxygen Flow Rate 0 Narrative Exam Narrative: Alert and oriented x3. Mild anxiety/distress. Right nasogastric tube. Heart is regular rate and rhythm without murmur Lungs are clear to auscultation bilaterally Abdomen is soft, bowel sounds diminished, mildly tender midline lower abdominal incision intact. Extremities no ankle edema. Objective Labs 12/04/24 04:10 12/04/24 04:10 Labs: Laboratory Results - last 24 hr 12/03/24 12/03/24 12/03/24 17:50 18:55 19:57 WBC 15.3 H RBC 3.78 L Hgb 11.1 L Hct 32.7 L MCV 86.6 MCH 29.3 MCHC 33.9 RDW 14.1 Plt Count 379 Neut % (Auto) 92.0 H Lymph % (Auto) 2.[address] [facility] % (Auto) 5.2 Eos % (Auto) 0.4 L Baso % (Auto) 0.4 Neut # (Auto) 37210 H Lymph # (Auto) [address] [facility] # (Auto) 800 Eos # (Auto) 100 Baso # (Auto) 100 Total Counted Seg Neutrophils % Band Neutrophils % Lymphocytes % (Manual) Monocytes % (Manual) Eosinophils % (Manual) Neutrophils # (Manual) Platelet Estimate RBC Morphology PT 12.8 H INR 1.1 APTT 29 Sodium 112 L* 113 L* Potassium 3.5 3.5 Chloride 74 L* 77 L Carbon Dioxide 29 29 BUN 24 H 21 H Creatinine 0.76 0.61 Estimated GFR > 60 > 60 BUN/Creatinine Ratio 31.6 H 34.4 H Glucose 126 H 112 H Lactate 1.4 Calcium 8.5 7.7 L Total Bilirubin 1.3 AST 31 ALT 24 Alkaline Phosphatase 130 H Total Creatine Kinase 39 Troponin I < 0.012 Total Protein 7.1 Albumin 4.0 Globulin 3.1 Albumin/Globulin Ratio 1.3 Lipase 43 Procalcitonin 0.378 TSH 6.25 H Free T4 1.61 Urine Color Urine Appearance Urine pH Ur Specific [place] Urine Protein Urine Glucose (UA) Urine Ketones Urine Occult Blood Urine Nitrate Urine Bilirubin Ur Bilirubin Confirm Urine Urobilinogen Ur Leukocyte Esterase Urine RBC Urine WBC Ur Squamous Epith Cells Amorphous Sediment Urine Bacteria Ur Culture Indicated? Vol Urine Centrifuged Nasal Screen MRSA (PCR) SARS-CoV-2 (PCR) Negative Influenza A (RT-PCR) Flu a negative Influenza B (RT-PCR) Flu b negative RSV (PCR) Negative 12/03/24 12/04/24 12/04/24 20:31 00:20 00:25 WBC RBC Hgb Hct MCV MCH MCHC RDW Plt Count Neut % (Auto) Lymph % (Auto) [facility] % (Auto) Eos % (Auto) Baso % (Auto) Neut # (Auto) Lymph # (Auto) [facility] # (Auto) Eos # (Auto) Baso # (Auto) Total Counted Seg Neutrophils % Band Neutrophils % Lymphocytes % (Manual) Monocytes % (Manual) Eosinophils % (Manual) Neutrophils # (Manual) Platelet Estimate RBC Morphology PT INR APTT Sodium 116 L* Potassium 3.6 Chloride 85 L Carbon Dioxide 25 BUN 16 Creatinine 0.50 L Estimated GFR > 60 BUN/Creatinine Ratio 32.0 H Glucose 130 H Lactate Calcium 7.8 L Total Bilirubin AST ALT Alkaline Phosphatase Total Creatine Kinase 56 Troponin I < 0.012 Total Protein Albumin Globulin Albumin/Globulin Ratio Lipase Procalcitonin TSH Free T4 Urine Color Yellow Urine Appearance Clear Urine pH 6.0 Ur Specific [place] 1.010 Urine Protein 1+ H Urine Glucose (UA) Negative Urine Ketones 1+ H Urine Occult Blood Negative Urine Nitrate Negative Urine Bilirubin 1+ H Ur Bilirubin Confirm Negative Urine Urobilinogen 2.0 H Ur Leukocyte Esterase Negative Urine RBC None seen Urine WBC None seen Ur Squamous Epith Cells 1-5 /hpf Amorphous Sediment 1+ Urine Bacteria None seen Ur Culture Indicated? Cult not indicated Vol Urine Centrifuged 10ml (spun) Nasal Screen MRSA (PCR) Not detected SARS-CoV-2 (PCR) Influenza A (RT-PCR) Influenza B (RT-PCR) RSV (PCR) 12/04/24 04:10 WBC 1.6 L* D RBC 3.82 L Hgb 11.3 L Hct 33.3 L MCV 87.3 MCH 29.7 MCHC 34.0 RDW 14.2 Plt Count 355 Neut % (Auto) Not Reportable Lymph % (Auto) Not Reportable [facility] % (Auto) Not Reportable Eos % (Auto) Not Reportable Baso % (Auto) Not Reportable Neut # (Auto) Lymph # (Auto) Not Reportable [facility] # (Auto) Not Reportable Eos # (Auto) Baso # (Auto) Not Reportable Total Counted 100 Seg Neutrophils % 24.0 L Band Neutrophils % 47.0 H Lymphocytes % (Manual) 15.0 L Monocytes % (Manual) 12.0 H Eosinophils % (Manual) 2.0 Neutrophils # (Manual) 1136 L Platelet Estimate Adequate on smear RBC Morphology Normal morphology PT INR APTT Sodium 117 L* Potassium 3.4 Chloride 87 L Carbon Dioxide 24 BUN 16 Creatinine 0.51 L Estimated GFR > 60 BUN/Creatinine Ratio 31.4 H Glucose 100 Lactate Calcium 7.5 L Total Bilirubin 1.2 AST 24 ALT 16 Alkaline Phosphatase 82 Total Creatine Kinase Troponin I Total Protein 5.3 L Albumin 2.7 L Globulin 2.6 Albumin/Globulin Ratio 1.0 Lipase Procalcitonin TSH Free T4 Urine Color Urine Appearance Urine pH Ur Specific [place] Urine Protein Urine Glucose (UA) Urine Ketones Urine Occult Blood Urine Nitrate Urine Bilirubin Ur Bilirubin Confirm Urine Urobilinogen Ur Leukocyte Esterase Urine RBC Urine WBC Ur Squamous Epith Cells Amorphous Sediment Urine Bacteria Ur Culture Indicated? Vol Urine Centrifuged Nasal Screen MRSA (PCR) SARS-CoV-2 (PCR) Influenza A (RT-PCR) Influenza B (RT-PCR) RSV (PCR) [facility] Medical History History of COVID-19 (05/2024) Hiatal hernia Serum sodium decreased Encounter for subsequent annual wellness visit (AWV) in Medicare patient Vision disorder Rosacea Shoulder pain (~2014) Foot pain Measles Chicken pox (~1949) Hearing loss (~2021) Cataracts, bilateral (~2014) History of urinary incontinence Neutropenia 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 Allergic rhinitis Osteoarthritis (~1997) Obstructive sleep apnea of adult Primary insomnia Lichen sclerosus et atrophicus Vitamin D deficiency Chronic cough Osteopenia HTN (hypertension) (~2009) Hyperlipidemia Surgical History 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) Hx of LASIK Anesthesia History of hand surgery (~2022) History of breast mammoplasty S/P foot surgery, right S/P UVPP (uvulopalatopharyngoplasty) Hx of bilateral breast reduction surgery S/P trigger finger release History of facelift Hx of bladder repair surgery Hx of partial thyroidectomy Hx of partial thyroidectomy Family History Mother Heart attack Brother History of heart disease Social History household members: none occupational status: previously employed Smoking Status: Never smoker alcohol intake: current substance use type: does not use Assessment & Plan Assessment & Plan narrative: Incarcerated inguinal hernia. S/P Strangulated inguinal hernia (Gangrenous small bowel with perforation). Small bowel resection with anastomosis. Open repair of right femoral hernia on 12/03/24. -Continue to correct sodium. -Zosyn IV Neutropenia. WBC 1.6 on 12/04. Continue Zosyn and follow CBC. Hyponatremia hypovolemia. Likely from dehydration since patient has severe nausea and vomiting. NS and monitor sodium closely. NA slowly correcting to 117 today. Also patient mentation is normal and oriented x 4 without any seizure. Hypothyroidism. Resumed home Synthroid. TSH 6.25. HTN. Monitor BP and resumed home medications. HLD. Resume home medications when patient can take PO. DVT PPx SCDs and defer chemical PPx to general surgery Code status full code Disposition home in 2-3 days Time-Based Coding :: [TOTAL MINUTES] spent with patient and on the chart (including review of chart, obtaining history, exam, reviewing outside data, placing orders, documenting exam and treatment plan, and counseling patient) on [DATE].
[2024-12-04] MEDS: LEVOTHYROXINE 100 MCG TABLET PO (08:36)
[2024-12-04] MEDS: ASPIRIN EC 81 MG TABLET PO ×2 (09:32→20:42)
[2024-12-04] MEDS: SODIUM CHLORIDE 0.9% FLUSH 10 ML IV ×2 (09:32→20:42)
[2024-12-04] MEDS: POTASSIUM CHLORIDE 20 MEQ TAB 40 MEQ PO (09:32)
[2024-12-04] MEDS: ACETAMINOPHEN 325 MG TABLET 650 MG PO (09:32)
--- NOTE | 2024-12-04 10:54 | DIET.CONS ---
Dietary Consultation Note Admission Date: 12/03/2024 19:49 Assessment: 79 y F admitted for inguinal hernia with obstruction. Had surgery yesterday evening. RD consulted for GI surgery, lack of appetite. Met with pt at bedside. Pt reports last normal intake was Wednesday of last week during day. Since then pt estimates <200 calories per day, reporting very little intake d/t nausea/vomiting such as some applesauce one day and yogurt another day. Reports since knee surgery 2 months ago, has noted some taste changes, which resulted in a little reduction in PO intakes. Has sustained a 3-4 lb weight loss from this (-2.5% loss within 2 months, non-significant). Her weight 2 months ago was 157 lb (71.36 kg). Reports 2-3 weeks ago her weight was 153 lb (69.5 kg) Nutrition focused physical exam performed with no significant findings. Assessed temples, clavicle region (noting pt had right shoulder surgery and pt reports shoulder looks different than her left), interosseous, buccal and orbital fat pads. Pt had questions regarding diet progression. Discussed that surgery would determine diet advancements and discussed a typical diet progression and food available during the progressions. Ht: 149.86 cm Wt: 68.039 kg BMI: 30.2 UBW: 71.214 kg on 10/10/24 (-4.5% loss within 2 months, non-severe) 69.5 kg 2-3 weeks ago per pt (-2% weight loss within 1 month, non-severe) Last BM: 11/29/24 (12/03/24 21:00) MNA: 10 Avinash Score: 17 Diet: 12/03/24 19:51 NPO Diet Diet Modifications: NPO Type: Strict Labs: RBC 3.82 X10^6/uL (4.0-5.2) L 12/04/24 04:10 Hgb 11.3 g/dL (12.0-16.0) L 12/04/24 04:10 Hct 33.3 % (36-46) L 12/04/24 04:10 Creatinine 0.51 mg/dL (0.52-1.04) L 12/04/24 04:10 Lactate 1.4 mmol/L (0.7-2.1) 12/03/24 17:50 Nutrition Diagnosis: Inadequate oral intake r/t alterations in GI tract aeb 5 days <25% of EER based on diet recall Interventions: 1. Will monitor for diet progressions per surgery EER: 1400 kcals (MSJ x1.25 per BMI) 60-70 g protein (1-1.2 g per adjusted IBW per post op) Electronically Signed by: Jocelyn Hinds 12/04/24 10:54 Clinical Dietitian [address] [id number]
--- NOTE | 2024-12-04 12:24 | PM.PNPO.1 ---
Subjective Subjective Date Patient Seen: 12/04/24 Time Patient Seen: 12:24 Interval history: Patient is sitting up in a chair working with physical therapy. Making good urine. Reviewed that she is neutropenic today and has intermittent tachycardia. Denies fevers or chills. Exam Vital Signs (past 8 hours): - 12/04/24 04:30 12/04/24 05:00 12/04/24 05:00 Temperature Pulse Rate 103 H 104 H Respiratory Rate 19 21 Blood Pressure 108/54 L Pulse Oximetry 96 96 Oxygen Delivery Method 12/04/24 05:30 12/04/24 06:00 12/04/24 06:00 Temperature Pulse Rate 102 H 104 H Respiratory Rate 20 20 Blood Pressure 114/58 L Pulse Oximetry 95 95 Oxygen Delivery Method 12/04/24 06:30 12/04/24 07:00 12/04/24 07:00 Temperature Pulse Rate 106 H Respiratory Rate 24 Blood Pressure 108/58 L Pulse Oximetry 95 Oxygen Delivery Method Room Air 12/04/24 07:00 12/04/24 07:30 12/04/24 08:00 Temperature Pulse Rate 108 H 110 H Respiratory Rate 25 H 24 Blood Pressure 102/52 L Pulse Oximetry 95 94 Oxygen Delivery Method 12/04/24 08:00 12/04/24 08:30 12/04/24 09:00 Temperature Pulse Rate 108 H 115 H 109 H Respiratory Rate 25 H 31 H 28 H Blood Pressure Pulse Oximetry 95 95 94 Oxygen Delivery Method 12/04/24 09:30 12/04/24 09:30 12/04/24 10:00 Temperature 97.9 F Pulse Rate 108 H 104 H Respiratory Rate 34 H 22 Blood Pressure 97/53 L 106/52 L Pulse Oximetry 95 95 Oxygen Delivery Method 12/04/24 10:00 12/04/24 10:00 12/04/24 10:18 Temperature Pulse Rate 104 H Respiratory Rate 27 H Blood Pressure 90/51 L 106/52 L Pulse Oximetry 94 Oxygen Delivery Method 12/04/24 10:18 12/04/24 10:30 12/04/24 11:00 Temperature Pulse Rate 105 H 104 H 101 H Respiratory Rate 34 H 31 H 40 H Blood Pressure Pulse Oximetry 96 96 95 Oxygen Delivery Method 12/04/24 11:01 12/04/24 11:01 12/04/24 11:04 Temperature Pulse Rate 103 H Respiratory Rate 36 H Blood Pressure 93/49 L 94/52 L Pulse Oximetry 95 Oxygen Delivery Method 12/04/24 11:04 12/04/24 11:30 12/04/24 11:49 Temperature Pulse Rate 100 H 98 H 96 H Respiratory Rate 28 H 17 36 H Blood Pressure Pulse Oximetry 96 96 95 Oxygen Delivery Method 12/04/24 11:49 12/04/24 11:52 12/04/24 11:52 Temperature Pulse Rate 100 H Respiratory Rate 37 H Blood Pressure 88/52 L 106/53 L Pulse Oximetry 96 Oxygen Delivery Method Fraction of Inspired Oxygen 28 SaO2/FiO2 Ratio 328 Oxygen Delivery Method Room Air Oxygen Flow Rate 0 Narrative Exam Narrative: Gen: NAD, sitting comfortably in bed, appears well HEENT: Sclera are anicteric, head is normocephalic and atraumatic, trachea is midline. CV: RRR, no JVD Resp: clear to auscultation bilaterally, equal chest wall movement bilaterally Abd: soft, nontender, normoactive bowel sounds. INDU drain is serosanguineous. Ext: no edema, full range of motion Neuro: Cranial nerves II-XII grossly intact, no focal deficits Skin: No erythema or ecchymosis Objective Labs 12/04/24 04:10 12/04/24 04:10 Labs: Laboratory Results - last 24 hr 12/03/24 12/03/24 12/03/24 17:50 18:55 19:57 WBC 15.3 H RBC 3.78 L Hgb 11.1 L Hct 32.7 L MCV 86.6 MCH 29.3 MCHC 33.9 RDW 14.1 Plt Count 379 Neut % (Auto) 92.0 H Lymph % (Auto) 2.0 L [place] % (Auto) 5.2 Eos % (Auto) 0.4 L Baso % (Auto) 0.4 Neut # (Auto) 80993 H Lymph # (Auto) 300 L [place] # (Auto) 800 Eos # (Auto) 100 Baso # (Auto) 100 Total Counted Seg Neutrophils % Band Neutrophils % Lymphocytes % (Manual) Monocytes % (Manual) Eosinophils % (Manual) Neutrophils # (Manual) Platelet Estimate RBC Morphology PT 12.8 H INR 1.1 APTT 29 Sodium 112 L* 113 L* Potassium 3.5 3.5 Chloride 74 L* 77 L Carbon Dioxide 29 29 BUN 24 H 21 H Creatinine 0.76 0.61 Estimated GFR > 60 > 60 BUN/Creatinine Ratio 31.6 H 34.4 H Glucose 126 H 112 H Lactate 1.4 Calcium 8.5 7.7 L Total Bilirubin 1.3 AST 31 ALT 24 Alkaline Phosphatase 130 H Total Creatine Kinase 39 Troponin I < 0.012 Total Protein 7.1 Albumin 4.0 Globulin 3.1 Albumin/Globulin Ratio 1.3 Lipase 43 Procalcitonin 0.378 TSH 6.25 H Free T4 1.61 Urine Color Urine Appearance Urine pH Ur Specific [place] Urine Protein Urine Glucose (UA) Urine Ketones Urine Occult Blood Urine Nitrate Urine Bilirubin Ur Bilirubin Confirm Urine Urobilinogen Ur Leukocyte Esterase Urine RBC Urine WBC Ur Squamous Epith Cells Amorphous Sediment Urine Bacteria Ur Culture Indicated? Vol Urine Centrifuged Nasal Screen MRSA (PCR) SARS-CoV-2 (PCR) Negative Influenza A (RT-PCR) Flu a negative Influenza B (RT-PCR) Flu b negative RSV (PCR) Negative 12/03/24 12/04/24 12/04/24 20:31 00:20 00:25 WBC RBC Hgb Hct MCV MCH MCHC RDW Plt Count Neut % (Auto) Lymph % (Auto) [place] % (Auto) Eos % (Auto) Baso % (Auto) Neut # (Auto) Lymph # (Auto) [place] # (Auto) Eos # (Auto) Baso # (Auto) Total Counted Seg Neutrophils % Band Neutrophils % Lymphocytes % (Manual) Monocytes % (Manual) Eosinophils % (Manual) Neutrophils # (Manual) Platelet Estimate RBC Morphology PT INR APTT Sodium 116 L* Potassium 3.6 Chloride 85 L Carbon Dioxide 25 BUN 16 Creatinine 0.50 L Estimated GFR > 60 BUN/Creatinine Ratio 32.0 H Glucose 130 H Lactate Calcium 7.8 L Total Bilirubin AST ALT Alkaline Phosphatase Total Creatine Kinase 56 Troponin I < 0.012 Total Protein Albumin Globulin Albumin/Globulin Ratio Lipase Procalcitonin TSH Free T4 Urine Color Yellow Urine Appearance Clear Urine pH 6.0 Ur Specific [place] 1.010 Urine Protein 1+ H Urine Glucose (UA) Negative Urine Ketones 1+ H Urine Occult Blood Negative Urine Nitrate Negative Urine Bilirubin 1+ H Ur Bilirubin Confirm Negative Urine Urobilinogen 2.0 H Ur Leukocyte Esterase Negative Urine RBC None seen Urine WBC None seen Ur Squamous Epith Cells 1-5 /hpf Amorphous Sediment 1+ Urine Bacteria None seen Ur Culture Indicated? Cult not indicated Vol Urine Centrifuged 10ml (spun) Nasal Screen MRSA (PCR) Not detected SARS-CoV-2 (PCR) Influenza A (RT-PCR) Influenza B (RT-PCR) RSV (PCR) 12/04/24 04:10 WBC 1.6 L* D RBC 3.82 L Hgb 11.3 L Hct 33.3 L MCV 87.3 MCH 29.7 MCHC 34.0 RDW 14.2 Plt Count 355 Neut % (Auto) Not Reportable Lymph % (Auto) Not Reportable [place] % (Auto) Not Reportable Eos % (Auto) Not Reportable Baso % (Auto) Not Reportable Neut # (Auto) Lymph # (Auto) Not Reportable [place] # (Auto) Not Reportable Eos # (Auto) Baso # (Auto) Not Reportable Total Counted 100 Seg Neutrophils % 24.0 L Band Neutrophils % 47.0 H Lymphocytes % (Manual) 15.0 L Monocytes % (Manual) 12.0 H Eosinophils % (Manual) 2.0 Neutrophils # (Manual) 1136 L Platelet Estimate Adequate on smear RBC Morphology Normal morphology PT INR APTT Sodium 117 L* Potassium 3.4 Chloride 87 L Carbon Dioxide 24 BUN 16 Creatinine 0.51 L Estimated GFR > 60 BUN/Creatinine Ratio 31.4 H Glucose 100 Lactate Calcium 7.5 L Total Bilirubin 1.2 AST 24 ALT 16 Alkaline Phosphatase 82 Total Creatine Kinase Troponin I Total Protein 5.3 L Albumin 2.7 L Globulin 2.6 Albumin/Globulin Ratio 1.0 Lipase Procalcitonin TSH Free T4 Urine Color Urine Appearance Urine pH Ur Specific [place] Urine Protein Urine Glucose (UA) Urine Ketones Urine Occult Blood Urine Nitrate Urine Bilirubin Ur Bilirubin Confirm Urine Urobilinogen Ur Leukocyte Esterase Urine RBC Urine WBC Ur Squamous Epith Cells Amorphous Sediment Urine Bacteria Ur Culture Indicated? 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 Allergic rhinitis Osteoarthritis (~1997) Obstructive sleep apnea of adult Primary insomnia Lichen sclerosus et atrophicus Vitamin D deficiency Chronic cough Osteopenia HTN (hypertension) (~2009) Hyperlipidemia Surgical History 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) Hx of LASIK Anesthesia History of hand surgery (~2022) History of breast mammoplasty S/P foot surgery, right S/P UVPP (uvulopalatopharyngoplasty) Hx of bilateral breast reduction surgery S/P trigger finger release History of facelift Hx of bladder repair surgery Hx of partial thyroidectomy Hx of partial thyroidectomy Family History Mother Heart attack Brother History of heart disease Social History household members: none occupational status: previously employed Smoking Status: Never smoker alcohol intake: current substance use type: does not use Assessment & Plan Post-op Postoperative Procedures: Procedures Operation Date: 12/03/24 22:15 Actual Procedure Side Surgeon p Hernia Repair - Inguinal, small bowel resection Right Fuad Singh MD Postoperative day: 1 Postoperative status narrative: Continue nasogastric tube until some flatus. Continue urinary catheter until sepsis resolves. Time Spent With Patient Time with patient: less than 15 minutes
--- NOTE | 2024-12-04 12:36 | PT.IIE ---
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) Hx of bilateral breast reduction surgery Hx of bladder repair surgery Hx of LASIK Hx of partial thyroidectomy Hx of partial thyroidectomy S/P foot surgery, right S/P trigger finger release S/P UVPP (uvulopalatopharyngoplasty) Medical History (Last Reviewed 12/03/24 @ 19:44 by Fuad Singh MD) Allergic rhinitis Cataracts, bilateral (~2014) Chicken pox (~1949) Chronic cough Encounter for subsequent annual wellness visit (AWV) in Medicare patient Foot pain Hearing loss (~2021) Hiatal hernia History of COVID-19 (05/2024) History of urinary incontinence HTN (hypertension) (~2009) Hyperlipidemia Hypothyroidism associated with surgical procedure (~1959) Lichen sclerosus et atrophicus Measles Neutropenia Obstructive sleep apnea of adult Osteoarthritis (~1997) Osteopenia Primary insomnia Rosacea Serum sodium decreased Shoulder pain (~2014) Varicosities of leg Vision disorder Vitamin D deficiency Physical Therapy Inpatient Evaluation/Re-Eval M1 PT/OT-IP Prior Functional Status Start: 12/04/24 11:12 Freq: NEEDED Status: Active Protocol: Document 12/04/24 11:44 MB (Rec: 12/04/24 12:36 MB [id number]) Medical Review Prior Functional Status Medical History Reviewed Yes Diet/Fluid Consistency Regular Communication Good communicator Mobility and Gait Mod I with 4WRW or RW Activities of Daily Living and IADL's Mod I, drove, her bathroom is getting renovated and it is taking a long time Social History Household Members none Living Arrangements House Number of Floors (Floors) One Floor Number of Stairs To Enter/Railing? 1 small step without rail to get into house, can hold onto doorway Home Environment Standard Height Toilet,Tub/ Shower Home Equipment Front Wheel Walker,Four Wheel Walker,Straight Cane,Shower Seat with Backrest,Hand Held Shower,Grab Bars In Shower Employment Status Retired M2 PT-IP Current Condition Start: 12/04/24 11:12 Freq: NEEDED Status: Active Protocol: Document 12/04/24 11:44 MB (Rec: 12/04/24 12:36 MB [id number]) Physical Therapy Current Condition Current Condition Evaluation Date 12/04/24 Treatment Diagnosis Small bowel resection, hernia repair, has drain and catheter M3 PT-IP Subjective Start: 12/04/24 11:12 Freq: NEEDED Status: Active Protocol: Document 12/04/24 11:44 MB (Rec: 12/04/24 12:36 MB [id number]) Subjective Physical Therapy Visit Type Type Initial Evaluation Visit Start Time 11:44 Visit Stop Time 12:24 Number of COMPUTER REPAIR TECHNICIAN Visits 0 Physical Therapy Visit Comments Patient Comments Pt states she has some abdominal pain and she is reluctantly agreeable to PT. Therapy Pain Assessment Pain When Pain Assessed At Rest Pain Present Pain Present Pain Reported Location abdomen Intensity 3 Scale Used Numeric (0 - 10) M4 PT-IP Mobility and Gait Start: 12/04/24 11:12 Freq: NEEDED Status: Active Protocol: Document 12/04/24 11:44 MB (Rec: 12/04/24 12:36 MB [id number]) PT-Bed Mobility Assessment Rolling Type of Rolling Roll to Right Level of Assist Standby Assistance Supine to Sit Supine to Sit Maximum Assistance,1 Person Assistance,Bedrails Scooting Scooting to Edge of Bed Contact Guard Assistance PT-Transfer Assessment Sit to and From Stand Sit to and from Stand Minimal Assistance,1 Person Assistance,Use of Upper Extremities Equipment Transfer Assistive Device Gait Belt,Front Wheeled Walker Orthotic/Prosthetic Devices or Brace: No Transfers Transfer Destination Chair Transfer Technique Stepping Transfer Ability Level of Assist Minimal Assistance,1 Person Assistance,Use of Upper Extremities Comments Mobility Comments BP is in the 80s/50s at start of treatment and increases to the low 100s/50s and O2 sats WNLs and HR in the 90s, right elbow IV line falls out during treatment and nsg sets up fluids in left UE IV site Gait Assessment Gait Gait Assistance Required: Minimum Assistance Distance (Feet) 1 Able to Maintain Weight Bearing Status Yes During Gait Assistive Devices Assistive Device Gait Belt,Front Wheeled Walker Orthotic/Prosthetic Devices or Brace: No Gait Deviations General Gait Pattern Antalgic,Decreased Stride Length,Flexed Trunk Factors Limiting Gait Function Factors Limiting Gait Function Decreased Activity Tolerance, Pain Comments Gait Comments Stepping from bed to chair today, many lines, assist from PT and nsg and use of RW in room at lowest height and it is too tall for patient PT-Balance Assessment Sitting Balance and Reactions Static Sitting Balance Ability Good Dynamic Sitting Balance Ability Good Standing Balance and Reactions Static Standing Balance Ability Good Dynamic Standing Balance Ability Good Device Used RW M5 PT-IP Objective Assessments Start: 12/04/24 11:12 Freq: NEEDED Status: Active Protocol: Document 12/04/24 11:44 MB (Rec: 12/04/24 12:36 MB [id number]) Orientation Orientation/Cognition Level of Alertness Alert Orientation Name,Age,Birthday,Month,Date, Year,Day of Week,Place, Situation Language Function Ability No Deficits Noted Safety Awareness Understands Safety Issues Memory Description No Deficits Noted Gross Range of Motion Upper Extremity ROM Impairments Defer to OT Lower Extremity ROM Assessment Within Functional Limits Impairments Recent LTKR and scar healing well and good function in leg today Strength Lower Extremity Strength Assessment Within Functional Limits Coordination Assessment Assessment Coordination Comments NT Sensation Assessment Comments Sensation Comments NT Muscle Tone Muscle Tone WNL Yes M6 PT-IP Treatment Start: 12/04/24 11:12 Freq: NEEDED Status: Active Protocol: Document 12/04/24 11:44 MB (Rec: 12/04/24 12:36 [id number]) Physical Therapy Treatment Education Education Provided Precautions,Post-Op Packet, Safety Other Treatments Other Treatment Performed Log rolling practice and education, ankle pumps, HS, discussion about d/c recs M7 PT-IP Assessment and Plan Start: 12/04/24 11:12 Freq: NEEDED Status: Active Protocol: Document 12/04/24 11:44 MB (Rec: 12/04/24 12:36 [id number]) PT Summary Assessment and Plan Potential Rehabilitation Potential Good Status of Condition at Evaluation Evolving Summary Impairments Pain,Balance Progress Towards Goals Slow Progress due to Pain,Slow Progress due to Activity Tolerance Assessment Summary Pt is a 79 y/o female s/p abdominal surgery last date and she has many lines today. Her BP is low in bed upon arrival and systolic BP increases with mobility. Instructed in log rolling today and provided abdominal surgery handout. Pt requires increased time and encouragement for mobility. She has no help at home and will benefit from SNF at d/c. Recommend up to chair and BSC with nsg. Goals Bed Mobility Goal Independent Transfer Goal Independent,Front Wheeled Walker Gait Goal Independent,Front Wheel Walker Gait Distance 100 Other Goals Pt will ascend and descend 1 low step with LRAD and no more than CGA to allow safe home entrance. Days to Meet Goals 5 Frequency of Treatment Frequency Of Treatment Once a Day Treatment Plan Physical Therapy Treatment Plan Bed Mobility Training,Transfer Training,Gait Training, Therapeutic Exercise,Balance Retraining,Post Op Education, Discharge Planning,Hot or Cold Pack,Neuromuscular Re-ed, Coordination Retraining,Manual Therapy Precautions Abdominal Surgery Precautions Log Roll,Lifting Restrictions, Gait Belt above Incisional Area Recommendations To Nursing Amount of Assist Needed 1 Person Assist Discharge Recommendations PT Discharge Recommendations SNF Rehab Transportation Needs at Discharge Private Vehicle,Wheelchair/ Cabulance
[2024-12-04] MEDS: SODIUM CHLORIDE 0.9% 1,000 ML 100 ML IV ×2 (13:16→23:01)
--- NOTE | 2024-12-04 13:24 | CM.DANOTE ---
Initial DCP Assessment Visit Note Reviewed EMR and team rounds for pt's medical status and updates. Met with pt at bedside to introduce self and role, pt was found to be alert, oriented, very hard of hearing. Pt resides modified independently at baseline with the use of a 4WW, she has a neighbor friend that she can depend on, but both her sons live in [place]. Plan is SNF rehab at d/, referral placed with [facility]. KIANA: 12/06. Payor: Medicare PCP: Dr. Wheeler Pt is a 79 year-old F who presented to the ED yesterday evening with c/o 5-days of lower abdominal pain, nausea/vomiting, decreased PO intake, weakness, and fatigue. She shared that her lower hernia popped out due to all of the vomiting she's been doing, although it wasn't painful at first. She also has not had a BM in the last 4-days. She was started on IV fluids and Zofran. CT abd/pelvis showed the R-groin hernia wrapped in small bowel loop. Surgery was consulted, and the plan was made to make pt NPO for surgical correction, which was completed last night. Pt is concerned today that she has not been out of bed, and is worried about returning home postoperatively with little care assistance and limited mobility following surgery. She did work with PT, who is recommending SNF rehab at d/. Sent referral to [facility]. DCP will continue to monitor for any further evolving needs in relation to transition to rehab. Discharge Planning/Care Management CM Discharge Assessment Start: 12/04/24 13:15 Freq: Status: Active Protocol: Document 12/04/24 13:15 DPL (Rec: 12/04/24 13:20 DPL [id number]) Discharge Planning Assessment Assigned Business Development Sales Executive PERLA Chirinos Advance Directives? Yes Advance Directives on File No History Provided By Patient,Medical Record Has Patient been admitted in last 30 No days? Prior Living Arrangements House Household Members none Type of transporation used prior to Drives own vehicle admit Independent with ADL's No: modified independent with a 4WW Is patient alert and oriented? Yes Caregiver for Another No DME Already Rented / Owned Bath Bench,Elevated Toilet Seat,FWW / Walker,Cane Comment 4WW Patient/Family Preference Long Term Facility Comment Per PT eval recommendation. Barriers to Discharge No Discharge Plan Long Term Facility Transportation Arrangement Facility Referrals Initiated Long Term If patient plan is SNF: Has PASSR been No completed? Medicare Choice List Provided Yes Medicare choice list reviewed on patient electronic tablet with SNF/HH Preference [facility] Has Agency SNF been contacted Yes Whiteboard Updated in Patient Room with Yes name and ext. # of Business Development Sales Executive Review Status In Process Please Provide Date Initial DC 12/04/24 Assessment Was Performed
--- NOTE | 2024-12-04 14:15 | OT.IP.EVAL ---
Current Diagnoses Hypo-osmolality and hyponatremia (12/03/24) Unilateral inguinal hernia, with obstruction, without gangrene, not specified as recurrent (12/03/24) Complete intestinal obstruction, unspecified as to cause (12/03/24) Surgery Performed Operation Date: 12/03/24 22:15 Actual Procedures p Hernia Repair - Inguinal, small bowel resection(Right) - Fuad Singh MD Past Medical History (Last Reviewed 12/03/24 @ 19:44 by Fuad Singh MD) Allergic rhinitis Cataracts, bilateral (~2014) Chicken pox (~1949) Chronic cough Encounter for subsequent annual wellness visit (AWV) in Medicare patient Foot pain Hearing loss (~2021) Hiatal hernia History of COVID-19 (05/2024) History of urinary incontinence HTN (hypertension) (~2009) Hyperlipidemia Hypothyroidism associated with surgical procedure (~1959) Lichen sclerosus et atrophicus Measles Neutropenia Obstructive sleep apnea of adult Osteoarthritis (~1997) Osteopenia Primary insomnia Rosacea Serum sodium decreased Shoulder pain (~2014) Varicosities of leg Vision disorder Vitamin D deficiency Surgical History (Last Reviewed 12/03/24 @ 19:44 by Fuad Singh MD) Anesthesia History of breast mammoplasty History of facelift History of hand surgery (~2022) 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) Hx of bilateral breast reduction surgery Hx of bladder repair surgery Hx of LASIK Hx of partial thyroidectomy Hx of partial thyroidectomy S/P foot surgery, right S/P trigger finger release S/P UVPP (uvulopalatopharyngoplasty) Occupational Therapy Inpatient Evaluation/Re-Eval M1 PT/OT-IP Prior Functional Status Start: 12/04/24 11:12 Freq: NEEDED Status: Active Protocol: Document 12/04/24 14:19 CGR (Rec: 12/04/24 15:01 CGR [id number]) Medical Review Prior Functional Status Medical History Reviewed Yes Diet/Fluid Consistency Regular Communication Pt is an effective verbal communicator. Mobility and Gait Mod I with 4WRW or RW Activities of Daily Living and IADL's Mod I, drove, uses a shower chair. Currently pt is renovating her master bathroom and is using the guest bath. Social History Household Members none Living Arrangements House Number of Floors (Floors) One Floor Number of Stairs To Enter/Railing? 1 small step without rail to get into house, can hold onto doorway Home Environment Standard Height Toilet,Tub/ Shower Home Equipment Front Wheel Walker,Four Wheel Walker,Straight Cane,Shower Seat with Backrest,Hand Held Shower,Grab Bars In Shower Employment Status Retired Additional Social History Comment Pt is currently redoing her bathroom and is using the tub shower in her guest bath. M2 OT-IP Current Condition Start: 12/04/24 14:19 Freq: Status: Active Protocol: Document 12/04/24 14:19 CGR (Rec: 12/04/24 15:01 CGR [id number]) Occupational Therapy Current Condition Current Condition Evaluation Date 12/04/24 Treatment Diagnosis incarcerated inguinal hernia, 12/03 small bowel resection Diagnosis Onset Date 12/03/24 M3 OT- IP Subjective and Pain Start: 12/04/24 14:19 Freq: Status: Active Protocol: Document 12/04/24 14:19 CGR (Rec: 12/04/24 15:01 CGR [id number]) OT- Subjective Occupational Therapy Visit Type Type Initial Evaluation Visit Start Time 13:37 Visit Stop Time 14:15 Notes Pt limited by tubes and wires. OT Pain Assessment Pain When Pain Assessed At Rest Pain Present Pain Present Pain Reported Location abdomen Intensity 4 Scale Used Numeric (0 - 10) Management Techniques Modification of Treatment,Re- positioning M4 OT- IP ADL's Start: 12/04/24 14:19 Freq: Status: Active Protocol: Document 12/04/24 14:19 CGR (Rec: 12/04/24 15:01 CGR [id number]) OT [id number] Comments OT Self-Feeding Comments not meal time OT ADL-Grooming General Evaluation Grooming Ability Standby Assistance Areas Needing Assistance Retrieving/Set-up of Grooming Items,Face Washing Comments OT Grooming Comments seated in chair as pt's NG tube is not long enough to reach to the sink OT ADL-Oral Care General Eval Oral Care Ability Standby Assistance Areas of Assistance Brushing Teeth,Retrieving/Set- Up of Items Comments Oral Care Comments seated in chair as pt's NG tube is not long enough to reach to the sink OT ADL-Dressing Comments OT Dressing Comments not performed OT ADL-Toileting General Evaluation Toileting Ability Total Assistance Comments OT Toileting Comments landis OT ADL-Bathing Comments OT Bathing Comments not performed M5 OT- IP IADL's Start: 12/04/24 14:19 Freq: Status: Active Protocol: Document 12/04/24 14:19 CGR (Rec: 12/04/24 15:01 R [id number]) OT-Instrumental Activities of Daily Living Deficits IADL Deficits Identified No Deficits Home Safety Awareness Awareness of Need for Assistance at Home Good Awareness Ability to Problem Solve Emergency Able to Problem Solve Situations Medication Management Medication Management No Deficits Identified Money Management Money Management No Deficits Identified Meal Preparation Meal Preparation No Deficits Identified Cuff Setter Overlock Cuff Setter Overlock No Deficits Identified Driving Driving Comments 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 M6 OT- IP Functional Cognition Start: 12/04/24 14:19 Freq: Status: Active Protocol: Document 12/04/24 14:19 CGR (Rec: 12/04/24 15:01 R [id number]) Cognitive Factors Limiting Selfcare Function Cognitive Ability Level of Alertness Alert Patient Orientation Name,Age,Birthday,Month,Date, Year,Day of Week,Place, Situation Attention Span Ability Capable of Focused Attention, Capable of Sustained Attention Ability to Follow Commands Able to Follow Multi-Step Commands OT- Vision and Hearing OT- Hearing Assessment OT- Hearing Assessment Hearing Impaired,Use of Hearing Aids OT- Vision Assessment Visual Acuity Glasses For Reading Visual Attentiveness WFL Occular Pursuits WFL Vision Assessment Comments Pt states she wears glasses for reading and driving. M7 OT- IP Mobility and Balance Start: 12/04/24 14:19 Freq: Status: Active Protocol: Document 12/04/24 14:19 CGR (Rec: 12/04/24 15:01 R [id number]) OT-Transfer Assessment Sit to and From Stand Sit to and from Stand Contact Guard Assistance Transfers Transfer Ability Contact Guard Assistance Technique Transfer Destination Chair Transfer Technique Stand Step Pivot Devices Transfer Assistive Devices Gait Belt,Front Wheeled Walker Comments Mobility Comments Obtained size small walker for patient and adjusted to the right height. Pt stood and took 3 steps forward and backward x3. Pt is limited by her tubes and wires. OT- Gait Assessment Comments Gait Ability Comments not performed OT- Balance Assessment Sitting Balance and Reactions Static Sitting Balance Ability Good Dynamic Sitting Balance Ability Good M8 OT- IP Objective Assessments Start: 12/04/24 14:19 Freq: Status: Active Protocol: Document 12/04/24 14:19 CGR (Rec: 12/04/24 15:01 CGR [id number]) OT Gross Range of Motion Upper Extremity Range of Motion Assessment Within Functional Limits OT Strength Upper Extremity Strength Assessment Within Functional Limits Comments Strength Comments grossly 4/5 OT- Coordination Assessment Upper Extremity Finger to Nose Test Within Functional Limits Finger Tapping Test Within Functional Limits OT-Muscle Tone Assessment Muscle Tone WNL Yes OT Sensation Assessment Edema Edema Absent M9 OT- IP Assessment and Plan Start: 12/04/24 14:19 Freq: Status: Active Protocol: Document 12/04/24 14:19 CGR (Rec: 12/04/24 15:01 CGR [id number]) OT Summary Assessment and Plan Potential Rehabilitation Potential Good Analytic Complexity at Evaluation Moderate Summary OT Impairments Pain,Strength,Balance, Functional Mobility,Grooming, Dressing,Toileting,Bathing, Toilet Transfers,Shower Transfers,Activity Tolerance Progress Towards Goals Progressing Toward Goals,Slow Progress due to Medical Issues Assessment Summary Pt presents as a moderate complexity evaluation s/p admit for incarcerated inguinal hernia and underwent 12/03 small bowel resection. Pt appears to be moving well but is mostly limited by her lines and tubes. Pt is likely to progress quickly but would benefit from SNF at discharge as she does not have any family to assist and lives alone. Goals Grooming Goal Independent Dressing Goal Independent Toileting Goal Independent Bathing Goal Independent Toilet Transfer Goal Independent Shower Transfer Goal Independent Days to Meet Goals 15 Frequency of Treatment Other frequency 5x a week Treatment Plan OT Treatment Plan ADL Training,Functional Mobility,Patient/Family Education,Discharge Planning Other Treatment Recommendations and Next ADLs at sink, LB dressing Treatment Focus after abdominal sx, shower if ok Discharge Recommendations OT Discharge Recommendations SNF Rehab Transportation Needs at Discharge Private Vehicle
--- NOTE | 2024-12-04 18:07 | PC.NURSE ---
Pt stable throughout shift. HR primarily ST, physicians notified. Pt remains NPO with NGT to LIS, bowel sounds hypoactive. Pain controlled with PRN medications. Up to chair x1 assist. Son called, updated.
[2024-12-04] MEDS: HYDROCODONE/ACET 5/325 TABLET 1 TAB PO (19:42)
[2024-12-04] MEDS: ATORVASTATIN 20 MG TABLET 10 MG PO (20:42)
[2024-12-04] MEDS: lisinopriL 10 MG TABLET PO (20:42)
[2024-12-05] VITALS (30 sets, daily range): BP systolic 105–124; BP diastolic 52–58; PULSE 94–106; RESP 18–34; TEMP 36.8; O2SAT 93–100
[2024-12-05] MEDS: PIPERACILLIN/TAZO 3.375 GM in SODIUM CHLORIDE 0.9% 100 ML IV ×3 (02:05→17:12)
[2024-12-05 05:13] LABS: Add Manual Diff / Slide Review NO; Basophils Absolute Auto 0 /uL (0-100); Eosinophils Absolute Auto 100 /uL (0-450); Eosinophils Percent Auto 0.6 % (2-4); Hematocrit 26.7 % (36-46); Lymphocytes Absolute Auto 300 /uL (1100-4500); Lymphocytes Percent Auto 2.4 % (25-40); Mean Corpuscular HGB Conc 33.7 % (30-36); Mean Corpuscular Hemoglobin 29.4 PG (26-34); Mean Corpuscular Volume 87.1 fL (80-100); Monocytes Absolute Auto 400 /uL (0-900); Monocytes Percent Auto 3.5 % (3-14); Neutrophils Absolute Auto 11200 /uL (1500-7000); Neutrophils Percent Auto 93.5 % (50-75); Platelet Count 282 X10^3/uL (150-400); Red Blood Cell Count 3.07 X10^6/uL (4.0-5.2); Red Cell Distribution Width 14.4 % (11.6-14.8)
[2024-12-05 05:28] LABS: Blood Urea Nitrogen 21 mg/dL (7-17); Calcium 7.2 mg/dL (8.4-10.2); Carbon Dioxide 21 mmol/L (22-32); Chloride 92 mmol/L (98-107); Estimated Glomerular Filt Rate > 60 mL/min (>60); Glucose 74 mg/dL (80-110); HEMOLYSIS < 15 (0-50); Magnesium 1.5 mg/dL (1.6-2.3); Potassium 3.4 mmol/L (3.4-5.1); Sodium 121 mmol/L (137-145)
[2024-12-05] MEDS: SODIUM CHLORIDE 0.9% 1,000 ML 100 ML IV ×2 (05:42→17:14)
--- NOTE | 2024-12-05 08:15 | PM.PN.1 ---
Subjective Subjective Date Patient Seen: 12/05/24 Interval history: She is seen today to follow-up her low magnesium, blood loss anemia, hyponatremia and weakness. The magnesium level is 1.5. That is treated with 2 g of IV magnesium. The sodium level has risen from 117 up to 121. The potassium is 3.4. The hemoglobin has dropped from 11.3 down to 9.0. The white blood count has risen from 1.6 up to 12.0. She has orangish urine in her Lara. There is a nasogastric tube in the right nostril. She is feeling stronger and is continuing to engage at a very high level. Exam Vital Signs (past 8 hours): - 12/05/24 00:30 12/05/24 01:00 12/05/24 01:00 Temperature Pulse Rate 96 H 98 H Respiratory Rate 18 20 Blood Pressure 108/58 L Pulse Oximetry 99 99 Oxygen Delivery Method 12/05/24 01:30 12/05/24 02:00 12/05/24 02:00 Temperature Pulse Rate 95 H 94 H Respiratory Rate 18 20 Blood Pressure 120/56 L Pulse Oximetry 99 99 Oxygen Delivery Method 12/05/24 02:30 12/05/24 03:00 12/05/24 03:00 Temperature Pulse Rate 103 H 100 H Respiratory Rate 26 H 26 H Blood Pressure 118/52 L Pulse Oximetry 98 98 Oxygen Delivery Method 12/05/24 03:30 12/05/24 04:00 12/05/24 04:00 Temperature Pulse Rate 96 H Respiratory Rate 19 Blood Pressure 119/56 L Pulse Oximetry 96 Oxygen Delivery Method Nasal Cannula 12/05/24 04:00 12/05/24 04:30 12/05/24 05:00 Temperature Pulse Rate 99 H 100 H Respiratory Rate 26 H 23 Blood Pressure 116/57 L Pulse Oximetry 98 97 Oxygen Delivery Method 12/05/24 05:00 12/05/24 05:30 Temperature 98.2 F Pulse Rate 98 H 96 H Respiratory Rate 23 19 Blood Pressure Pulse Oximetry 98 98 Oxygen Delivery Method Fraction of Inspired Oxygen 28 SaO2/FiO2 Ratio 328 Oxygen Delivery Method Nasal Cannula Oxygen Flow Rate 0 Narrative Exam Narrative: Alert and oriented x3. Appears weak. No apparent distress. Heart is regular rate and rhythm without murmur Lungs are clear to auscultation bilaterally Abdomen is soft, nontender, no organomegaly, obese, intact lower abdominal midline incision. Bowel sounds are suppressed. There is no ankle edema Garza appearing urine in the Lara catheter Right nasogastric tube present. Objective Labs 12/05/24 04:08 12/05/24 04:08 Labs: Laboratory Results - last 24 hr 12/05/24 04:08 WBC 12.0 H D RBC 3.07 L Hgb 9.0 L Hct 26.7 L MCV 87.1 MCH 29.4 MCHC 33.7 RDW 14.4 Plt Count 282 Neut % (Auto) 93.5 H Lymph % (Auto) 2.4 L Angelina % (Auto) 3.5 Eos % (Auto) 0.6 L Baso % (Auto) 0.0 Neut # (Auto) 39530 H Lymph # (Auto) 300 L Angelina # (Auto) 400 Eos # (Auto) 100 Baso # (Auto) 0 Sodium 121 L Potassium 3.4 Chloride 92 L Carbon Dioxide 21 L BUN 21 H Creatinine 0.70 Estimated GFR > 60 BUN/Creatinine Ratio 30.0 H Glucose 74 L Calcium 7.2 L Magnesium 1.5 L PFSH Medical History History of COVID-19 (05/2024) Hiatal hernia Serum sodium decreased Encounter for subsequent annual wellness visit (AWV) in Medicare patient Vision disorder Rosacea Shoulder pain (~2014) Foot pain Measles Chicken pox (~1949) Hearing loss (~2021) Cataracts, bilateral (~2014) History of urinary incontinence Neutropenia 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 Allergic rhinitis Osteoarthritis (~1997) Obstructive sleep apnea of adult Primary insomnia Lichen sclerosus et atrophicus Vitamin D deficiency Chronic cough Osteopenia HTN (hypertension) (~2009) Hyperlipidemia Surgical History 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) Hx of LASIK Anesthesia History of hand surgery (~2022) History of breast mammoplasty S/P foot surgery, right S/P UVPP (uvulopalatopharyngoplasty) Hx of bilateral breast reduction surgery S/P trigger finger release History of facelift Hx of bladder repair surgery Hx of partial thyroidectomy Hx of partial thyroidectomy Family History Mother Heart attack Brother History of heart disease Social History household members: none occupational status: previously employed Smoking Status: Never smoker alcohol intake: current substance use type: does not use Assessment & Plan Assessment & Plan narrative: Incarcerated femoral hernia. S/P Strangulated femoral hernia (Gangrenous small bowel with perforation). Small bowel resection with anastomosis. Open repair of right femoral hernia on 12/03/24. -Continue to correct sodium. -NGT, NPO -Zosyn IV Neutropenia. WBC 1.6 on 12/04. 12.0 on 12/05. Continue Zosyn and follow CBC. ABLA -Postop hgb 9.0, follow. Hyponatremia hypovolemia. Likely from dehydration since patient has severe nausea and vomiting. NS and monitor sodium closely. NA slowly correcting from 117 to 121 today. Mentation is normal and oriented x 4 without any seizures. Hypothyroidism. Resumed home Synthroid. TSH 6.25. HTN. Monitor BP and resumed home medications. Hypomagnesemia -Mg 1.5 on 12/05/24. Supplement and follow. HLD. Resume home medications when patient can take PO. DVT PPx SCDs and defer chemical PPx to general surgery Code status full code Disposition home in 2-3 days Time-Based Coding :: [TOTAL MINUTES] spent with patient and on the chart (including review of chart, obtaining history, exam, reviewing outside data, placing orders, documenting exam and treatment plan, and counseling patient) on [DATE].
[2024-12-05] MEDS: PANTOPRAZOLE 40 MG VIAL IV (08:24)
[2024-12-05] MEDS: POTASSIUM CHLORIDE IN WATER 10 MEQ/100 ML PIGGYBACK 100 MEQ IV ×2 (08:24→09:48)
[2024-12-05] MEDS: ASPIRIN EC 81 MG TABLET PO ×2 (08:24→21:22)
[2024-12-05] MEDS: SODIUM CHLORIDE 0.9% FLUSH 10 ML IV ×2 (08:24→21:23)
[2024-12-05] MEDS: MAGNESIUM SULFATE 2 GM/50 ML PIGGYBACK IV (08:24)
--- NOTE | 2024-12-05 11:27 | OT.IP.TRT ---
Current Diagnoses Hypo-osmolality and hyponatremia (12/03/24) Unilateral inguinal hernia, with obstruction, without gangrene, not specified as recurrent (12/03/24) Complete intestinal obstruction, unspecified as to cause (12/03/24) Surgery Performed Operation Date: 12/03/24 22:15 Actual Procedures p Hernia Repair - Inguinal, small bowel resection(Right) - Fuad Singh MD Occupational Therapy Treatment Note M2 OT-IP Current Condition Start: 12/04/24 14:19 Freq: Status: Active Protocol: Document 12/04/24 14:19 CGR (Rec: 12/04/24 15:01 CGR [id number]) Occupational Therapy Current Condition Current Condition Evaluation Date 12/04/24 Treatment Diagnosis incarcerated inguinal hernia, 12/03 small bowel resection Diagnosis Onset Date 12/03/24 M3 OT- IP Subjective and Pain Start: 12/04/24 14:19 Freq: Status: Active Protocol: Document 12/05/24 12:39 [facility] (Rec: 12/05/24 12:50 [facility] [id number]) OT- Subjective Occupational Therapy Visit Type Type Treatment Note Visit Start Time 11:00 Visit Stop Time 11:27 Occupational Therapy Visit Comments Patient Comments Pt agreed to get up after encouragement. Patient/Caregiver Goals To get better. OT Pain Assessment Pain When Pain Assessed At Rest Pain Present Pain Present Pain Reported Location abdomen Pain Behaviors Facial Grimacing M4 OT- IP ADL's Start: 12/04/24 14:19 Freq: Status: Active Protocol: Document 12/05/24 12:39 [facility] (Rec: 12/05/24 12:50 [facility] [id number]) OT [id number] Comments OT Self-Feeding Comments Pt just able to have ice chips . OT ADL-Grooming General Evaluation Grooming Ability Standby Assistance Comments OT Grooming Comments Pt able to do after set-up while seated. OT ADL-Oral Care General Eval Oral Care Ability Standby Assistance OT ADL-Dressing Comments OT Dressing Comments Pt has LB dressing equipment to assist. OT ADL-Toileting Comments OT Toileting Comments Able to practice with use of toilet paper aid to reach back appropriate and able to follow her abdominal precautions. Pt states to look into getting one. OT ADL-Bathing Comments OT Bathing Comments not performed M5 OT- IP IADL's Start: 12/04/24 14:19 Freq: Status: Active Protocol: Document 12/04/24 14:19 CGR (Rec: 12/04/24 15:01 R [id number]) OT-Instrumental Activities of Daily Living Deficits IADL Deficits Identified No Deficits Home Safety Awareness Awareness of Need for Assistance at Home Good Awareness Ability to Problem Solve Emergency Able to Problem Solve Situations Medication Management Medication Management No Deficits Identified Money Management Money Management No Deficits Identified Meal Preparation Meal Preparation No Deficits Identified Lead Driver Lead Driver No Deficits Identified Driving 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 OT- IP Functional Cognition Start: 12/04/24 14:19 Freq: Status: Active Protocol: Document 12/05/24 12:39 [facility] (Rec: 12/05/24 12:50 [facility] [id number]) Cognitive Factors Limiting Selfcare Function Cognitive Comments Cognitive Assessment Comments Intact M7 OT- IP Mobility and Balance Start: 12/04/24 14:19 Freq: Status: Active Protocol: Document 12/05/24 12:39 [facility] (Rec: 12/05/24 12:50 [facility] [id number]) OT-Transfer Assessment Sit to and From Stand Sit to and from Stand Contact Guard Assistance, Minimal Assistance Comments Mobility Comments Pt able to come to stand with RAMONA. Pt able to practice use of toilet paper aid OT- Balance Assessment Sitting Balance and Reactions Static Sitting Balance Ability Good Dynamic Sitting Balance Ability Good Standing Balance and Reactions Static Standing Balance Ability Good M8 OT- IP Objective Assessments Start: 12/04/24 14:19 Freq: Status: Active Protocol: Document 12/04/24 14:19 CGR (Rec: 12/04/24 15:01 R [id number]) OT Gross Range of Motion Upper Extremity Range of Motion Assessment Within Functional Limits OT Strength Upper Extremity Strength Assessment Within Functional Limits Comments Strength Comments grossly 4/5 OT- Coordination Assessment Upper Extremity Finger to Nose Test Within Functional Limits Finger Tapping Test Within Functional Limits OT-Muscle Tone Assessment Muscle Tone WNL Yes OT Sensation Assessment Edema Edema Absent M9 OT- IP Assessment and Plan Start: 12/04/24 14:19 Freq: Status: Active Protocol: Document 12/05/24 12:39 [facility] (Rec: 12/05/24 12:50 [facility] [id number]) OT Summary Assessment and Plan Potential Rehabilitation Potential Good Analytic Complexity at Evaluation Moderate Summary OT Impairments Pain,Strength,Balance, Functional Mobility,Grooming, Dressing,Toileting,Bathing, Toilet Transfers,Shower Transfers,Activity Tolerance Progress Towards Goals Progressing Toward Goals,Slow Progress due to Medical Issues Assessment Summary Pt able to practice use of toilet paper aid while standing so better able to follow her abdominal precautions. Pt gets tired easily and still on ice chips. Pt will benefit from skilled rehab prior to going home. Goals Grooming Goal Independent Dressing Goal Independent Toileting Goal Independent Bathing Goal Independent Toilet Transfer Goal Independent Shower Transfer Goal Independent Days to Meet Goals 14 Frequency of Treatment Other frequency 5x a week Treatment Plan OT Treatment Plan ADL Training,Functional Mobility,Patient/Family Education,Discharge Planning Other Treatment Recommendations and Next ADLs at sink, LB dressing Treatment Focus after abdominal sx, shower if ok Discharge Recommendations OT Discharge Recommendations SNF Rehab Transportation Needs at Discharge Private Vehicle
--- NOTE | 2024-12-05 11:46 | PT-IP ANOTE ---
Pt declined PT. Pt reports too fatigued post session with OT and comfortable in chair. Pt requests to come back at a later time, if time permits.
--- NOTE | 2024-12-05 12:45 | PT.IPTN ---
Current Diagnoses Hypo-osmolality and hyponatremia (12/03/24) Unilateral inguinal hernia, with obstruction, without gangrene, not specified as recurrent (12/03/24) Complete intestinal obstruction, unspecified as to cause (12/03/24) Surgery Performed Operation Date: 12/03/24 22:15 Actual Procedures p Hernia Repair - Inguinal, small bowel resection(Right) - Fuad Singh MD Physical Therapy Treatment Note M2 PT-IP Current Condition Start: 12/04/24 11:12 Freq: NEEDED Status: Active Protocol: Document 12/04/24 11:44 MB (Rec: 12/04/24 12:36 MB [id number]) Physical Therapy Current Condition Current Condition Evaluation Date 12/04/24 Treatment Diagnosis Small bowel resection, hernia repair, has drain and catheter M3 PT-IP Subjective Start: 12/04/24 11:12 Freq: NEEDED Status: Active Protocol: Document 12/05/24 13:11 SW (Rec: 12/05/24 13:42 SW [id number]) Subjective Physical Therapy Visit Type Type Treatment Note Visit Start Time 12:45 Visit Stop Time 13:10 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 Pt agreeable to PT. M4 PT-IP Mobility and Gait Start: 12/04/24 11:12 Freq: NEEDED Status: Active Protocol: Document 12/05/24 13:11 SW (Rec: 12/05/24 13:42 SW [id number]) PT-Transfer Assessment Sit to and From Stand Sit to and from Stand Minimal Assistance,1 Person Assistance,Use of Upper Extremities Equipment Transfer Assistive Device Gait Belt,Front Wheeled Walker Orthotic/Prosthetic Devices or Brace: No Transfers Transfer Destination Chair Transfer Technique Stepping Transfer Ability Level of Assist Minimal Assistance,1 Person Assistance,Use of Upper Extremities Comments Mobility Comments RN removed many lines prior to PT treatment. Gait Assessment Gait Gait Assistance Required: Contact Guard Assist Distance (Feet) 20 Able to Maintain Weight Bearing Status Yes During Gait Assistive Devices Assistive Device Gait Belt,Front Wheeled Walker Orthotic/Prosthetic Devices or Brace: No Gait Deviations General Gait Pattern Antalgic,Decreased Stride Length,Flexed Trunk Factors Limiting Gait Function Factors Limiting Gait Function Decreased Activity Tolerance, Decreased Strength Comments Gait Comments Forward/backward stepping d/t limitation with lines. PT-Balance Assessment Sitting Balance and Reactions Static Sitting Balance Ability Good Dynamic Sitting Balance Ability Good Standing Balance and Reactions Static Standing Balance Ability Good Dynamic Standing Balance Ability Fair Device Used FWW Comments Other Balance Tests/Deviations/Treatment Standing marches in place, : increased UE assist on FWW, CGA gait belt donned M5 PT-IP Objective Assessments Start: 12/04/24 11:12 Freq: NEEDED Status: Active Protocol: Document 12/04/24 11:44 MB (Rec: 12/04/24 12:36 MB [id number]) Orientation Orientation/Cognition Level of Alertness Alert Orientation Name,Age,Birthday,Month,Date, Year,Day of Week,Place, Situation Language Function Ability No Deficits Noted Safety Awareness Understands Safety Issues Memory Description No Deficits Noted Gross Range of Motion Upper Extremity ROM Impairments Defer to OT Lower Extremity ROM Assessment Within Functional Limits Impairments Recent LTKR and scar healing well and good function in leg today Strength Lower Extremity Strength Assessment Within Functional Limits Coordination Assessment Assessment Coordination Comments NT Sensation Assessment Comments Sensation Comments NT Muscle Tone Muscle Tone WNL Yes M6 PT-IP Treatment Start: 12/04/24 11:12 Freq: NEEDED Status: Active Protocol: Document 12/05/24 13:11 SW (Rec: 12/05/24 13:42 SW [id number]) Physical Therapy Treatment Education Education Provided Precautions,Safety Other Treatments Other Treatment Performed ankle pumps, HS curls M7 PT-IP Assessment and Plan Start: 12/04/24 11:12 Freq: NEEDED Status: Active Protocol: Document 12/05/24 13:11 SW (Rec: 12/05/24 13:42 SW [id number]) PT Summary Assessment and Plan Potential Rehabilitation Potential Good Status of Condition at Evaluation Evolving Summary Impairments Balance,Activity Tolerance Progress Towards Goals Slow Progress due to Activity Tolerance,Slow Progress - Other Assessment Summary 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 Pt pleasant and agreeable to PT. Gait belt donned above incision. Pt reports feeling good between each position change, denies dizziness/light headed. Increased gait distance today, though limited d/t lines and decreased activity tolerance. Pt required min assist for sit to stand and CGA for stand to sit with cues for slow controlled descent and to locate chair prior to sitting. Pt has good static balance with use of UE on FWW and fair standing dynamic balance with heavy use of UE. Pt ambulates with decreased step length, small base of support, and cautious with steps. Pt demonstrated good awareness to safety and precautions during treatment. Patient positioned for comfort in chair, call button within reach. Recommend discharge to SNF to increase activity tolerance, balance, and strength to return to PLOF . Goals Bed Mobility Goal Independent Transfer Goal Independent,Front Wheeled Walker Gait Goal Independent,Front Wheel Walker Gait Distance 100 Other Goals Pt will ascend and descend 1 low step with LRAD and no more than CGA to allow safe home entrance. Frequency of Treatment Frequency Of Treatment Once a Day Treatment Plan Physical Therapy Treatment Plan Bed Mobility Training,Transfer Training,Gait Training, Therapeutic Exercise,Balance Retraining,Post Op Education, Discharge Planning,Hot or Cold Pack,Neuromuscular Re-ed, Coordination Retraining,Manual Therapy Precautions Abdominal Surgery Precautions Log Roll,Lifting Restrictions, Gait Belt above Incisional Area Recommendations To Nursing Amount of Assist Needed 1 Person Assist Discharge Recommendations PT Discharge Recommendations SNF Rehab Transportation Needs at Discharge Private Vehicle,Wheelchair/ Cabulance
--- NOTE | 2024-12-05 12:58 | CM.DPC ---
DCP Cont. Reviewed EMR and team rounds for status updates. [facility] can accept for tomorrow, 12/06 at 11:30am if pt is able to tolerate a diet and has had a BM by then. If not, we will delay until she has met those 2-requirements for admission. Following closely.
--- NOTE | 2024-12-05 13:28 | P.PN_ITS ---
Subjective Subjective Date Patient Seen: 12/05/24 Time Patient Seen: 13:28 Interval history: Patient is doing well. Denies abdominal pain. Denies any flatus or bowel movement, but nasogastric tube has less output. Exam Vital Signs (past 8 hours): - 12/05/24 05:30 12/05/24 06:00 12/05/24 06:00 Temperature 98.2 F Pulse Rate 96 H 97 H Respiratory Rate 19 22 Blood Pressure 117/54 L Pulse Oximetry 98 98 Oxygen Delivery Method Oxygen Flow Rate 12/05/24 06:30 12/05/24 07:00 12/05/24 07:30 Temperature Pulse Rate 95 H 104 H 101 H Respiratory Rate 19 26 H 20 Blood Pressure Pulse Oximetry 98 97 99 Oxygen Delivery Method Oxygen Flow Rate 12/05/24 07:46 12/05/24 07:46 12/05/24 08:00 Temperature Pulse Rate 100 H Respiratory Rate 30 H Blood Pressure 117/58 L 105/54 L Pulse Oximetry 98 Oxygen Delivery Method Oxygen Flow Rate 12/05/24 08:00 12/05/24 08:00 12/05/24 08:00 Temperature 98.3 F Pulse Rate 97 H 101 H Respiratory Rate 29 H 25 H Blood Pressure 117/58 L Pulse Oximetry 98 95 Oxygen Delivery Method Room Air Oxygen Flow Rate 0 12/05/24 08:30 12/05/24 09:07 12/05/24 09:30 Temperature Pulse Rate 96 H 103 H 100 H Respiratory Rate 31 H 28 H 22 Blood Pressure Pulse Oximetry 100 97 98 Oxygen Delivery Method Oxygen Flow Rate 12/05/24 10:00 Temperature Pulse Rate 96 H Respiratory Rate 28 H Blood Pressure Pulse Oximetry 100 Oxygen Delivery Method Oxygen Flow Rate Fraction of Inspired Oxygen 28 SaO2/FiO2 Ratio 328 Oxygen Delivery Method Room Air Oxygen Flow Rate 0 Narrative Exam Narrative: Incisions are clean, dry, intact. Objective Labs 12/05/24 04:08 12/05/24 04:08 Labs: Laboratory Results - last 24 hr 12/05/24 04:08 WBC 12.0 H D RBC 3.07 L Hgb 9.0 L Hct 26.7 L MCV 87.1 MCH 29.4 MCHC 33.7 RDW 14.4 Plt Count 282 Neut % (Auto) 93.5 H Lymph % (Auto) 2.4 L [place] % (Auto) 3.5 Eos % (Auto) 0.6 L Baso % (Auto) 0.0 Neut # (Auto) 66079 H Lymph # (Auto) 300 L [place] # (Auto) 400 Eos # (Auto) 100 Baso # (Auto) 0 Sodium 121 L Potassium 3.4 Chloride 92 L Carbon Dioxide 21 L BUN 21 H Creatinine 0.70 Estimated GFR > 60 BUN/Creatinine Ratio 30.0 H Glucose 74 L Calcium 7.2 L Magnesium 1.5 L PFSH Medical History History of COVID-19 (05/2024) Hiatal hernia Serum sodium decreased Encounter for subsequent annual wellness visit (AWV) in Medicare patient Vision disorder Rosacea Shoulder pain (~2014) Foot pain Measles Chicken pox (~1949) Hearing loss (~2021) Cataracts, bilateral (~2014) History of urinary incontinence Neutropenia 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 Allergic rhinitis Osteoarthritis (~1997) Obstructive sleep apnea of adult Primary insomnia Lichen sclerosus et atrophicus Vitamin D deficiency Chronic cough Osteopenia HTN (hypertension) (~2009) Hyperlipidemia Surgical History 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) Hx of LASIK Anesthesia History of hand surgery (~2022) History of breast mammoplasty S/P foot surgery, right S/P UVPP (uvulopalatopharyngoplasty) Hx of bilateral breast reduction surgery S/P trigger finger release History of facelift Hx of bladder repair surgery Hx of partial thyroidectomy Hx of partial thyroidectomy Family History Mother Heart attack Brother History of heart disease Social History household members: none occupational status: previously employed Smoking Status: Never smoker alcohol intake: current substance use type: does not use Assessment & Plan Post-op Postoperative Procedures: Procedures Operation Date: 12/03/24 22:15 Actual Procedure Side Surgeon p Hernia Repair - Inguinal, small bowel resection Right Fuad Singh MD Postoperative day: 2 Postoperative status: doing well Postoperative status narrative: Discontinue nasogastric tube and attempt to clear liquid diet. We will continue drain, cultures pending.
[2024-12-05] MEDS: ATORVASTATIN 20 MG TABLET 10 MG PO (21:22)
[2024-12-05] MEDS: lisinopriL 10 MG TABLET PO (21:23)
[2024-12-06] VITALS (29 sets, daily range): BP systolic 142–158; BP diastolic 67–76; PULSE 78–97; RESP 19–24; TEMP 36.6–36.9; O2SAT 90–99
[2024-12-06] MEDS: PIPERACILLIN/TAZO 3.375 GM in SODIUM CHLORIDE 0.9% 100 ML IV ×3 (01:10→18:02)
[2024-12-06] MEDS: SODIUM CHLORIDE 0.9% 1,000 ML 100 ML IV (02:49)
[2024-12-06 05:17] LABS: BUN Creatinine Ratio 33.9 (6-22); Blood Urea Nitrogen 19 mg/dL (7-17); Calcium 7.5 mg/dL (8.4-10.2); Carbon Dioxide 23 mmol/L (22-32); Chloride 97 mmol/L (98-107); Estimated Glomerular Filt Rate > 60 mL/min (>60); Glucose 100 mg/dL (80-110); HEMOLYSIS 20 (0-50); Magnesium 2.5 mg/dL (1.6-2.3); Potassium 3.2 mmol/L (3.4-5.1); Sodium 126 mmol/L (137-145)
[2024-12-06] MEDS: LEVOTHYROXINE 100 MCG TABLET PO (06:46)
--- NOTE | 2024-12-06 06:46 | PC.NURSE ---
0630 pt woke up w/audible wheezing, SOB, and disinclination to lie flat. Exp wheezes/ronchi auscultated. Provider/charge nurse notified. BNP, d/c fluids, 20 mg Lasix ordered
[2024-12-06 07:19] LABS: NT-proBNP (BNP-Adult 18+) 379 pg/mL (<450)
--- NOTE | 2024-12-06 07:53 | PM.PN.1 ---
Subjective Subjective Date Patient Seen: 12/06/24 Interval history: Overnight she experienced respiratory deterioration likely related to IV fluid overload so the fluid was stopped and a dose of Lasix IV was given. This morning the sodium is 126 with a potassium of 3.2. The magnesium level is 2.5. 40 mEq of oral potassium have been given. She has wheezing on exam so a chest x-ray will be done. The blood pressure is 158/70 and the heart rate is 95. Exam Vital Signs (past 8 hours): - 12/06/24 06:30 Temperature 98.1 F Pulse Rate 95 H Respiratory Rate 24 Blood Pressure 158/70 H Pulse Oximetry 95 Oxygen Flow Rate 2 Fraction of Inspired Oxygen 28 SaO2/FiO2 Ratio 328 Oxygen Delivery Method Room Air Oxygen Flow Rate 2 Narrative Exam Narrative: She is alert and oriented x3. She is in moderate distress from coughing and wheezing. Her voice sounds hoarse and weak. Heart is regular rate and rhythm without murmur Lungs have wheezing bilaterally Extremities have no ankle edema Abdomen is bloated with a mildly tender but intact right groin incision. Objective Labs 12/05/24 04:08 12/06/24 04:07 Labs: Laboratory Results - last 24 hr 12/06/24 12/06/24 04:07 07:02 Sodium 126 L Potassium 3.2 L Chloride 97 L Carbon Dioxide 23 BUN 19 H Creatinine 0.56 Estimated GFR > 60 BUN/Creatinine Ratio 33.9 H Glucose 100 Calcium 7.5 L Magnesium 2.5 H NT-Pro-B Natriuret Pep 379 PFSH Medical History History of COVID-19 (05/2024) Hiatal hernia Serum sodium decreased Encounter for subsequent annual wellness visit (AWV) in Medicare patient Vision disorder Rosacea Shoulder pain (~2014) Foot pain Measles Chicken pox (~1949) Hearing loss (~2021) Cataracts, bilateral (~2014) History of urinary incontinence Neutropenia 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 Allergic rhinitis Osteoarthritis (~1997) Obstructive sleep apnea of adult Primary insomnia Lichen sclerosus et atrophicus Vitamin D deficiency Chronic cough Osteopenia HTN (hypertension) (~2009) Hyperlipidemia Surgical History 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) Hx of LASIK Anesthesia History of hand surgery (~2022) History of breast mammoplasty S/P foot surgery, right S/P UVPP (uvulopalatopharyngoplasty) Hx of bilateral breast reduction surgery S/P trigger finger release History of facelift Hx of bladder repair surgery Hx of partial thyroidectomy Hx of partial thyroidectomy Family History Mother Heart attack Brother History of heart disease Social History household members: none occupational status: previously employed Smoking Status: Never smoker alcohol intake: current substance use type: does not use Assessment & Plan Assessment & Plan narrative: Incarcerated femoral hernia. S/P Strangulated femoral hernia (Gangrenous small bowel with perforation). Small bowel resection with anastomosis. Open repair of right femoral hernia on 12/03/24. -Continue to correct sodium. -NGT, NPO -Zosyn IV Neutropenia. WBC 1.6 on 12/04. 12.0 on 12/05. Continue Zosyn and follow CBC. Respiratory Symptoms -12/06/24, fluid overload? IVF stopped and Lasix given overnight. -CXR pending. ABLA -Postop hgb 9.0, follow. Hyponatremia hypovolemia. Likely from dehydration since patient has severe nausea and vomiting. NS and monitor sodium closely. NA slowly correcting from 121 to 126 today. Mentation is normal and oriented x 4 without any seizures. Hypothyroidism. Resumed home Synthroid. TSH 6.25. HTN. Monitor BP and resumed home medications. Hypomagnesemia -Mg 1.5 on 12/05/24. Supplemented and up to 2.5 on 12/06/24. HLD. Resume home medications when patient can take PO. DVT PPx SCDs and defer chemical PPx to general surgery Code status full code Disposition home in 2-3 days Time-Based Coding :: [TOTAL MINUTES] spent with patient and on the chart (including review of chart, obtaining history, exam, reviewing outside data, placing orders, documenting exam and treatment plan, and counseling patient) on [DATE].
[2024-12-06] MEDS: ASPIRIN EC 81 MG TABLET PO ×2 (08:23→20:33)
[2024-12-06] MEDS: PANTOPRAZOLE 40 MG VIAL IV (08:23)
[2024-12-06] MEDS: FUROSEMIDE 20 MG/2 ML VIAL IV (08:24)
[2024-12-06] MEDS: SODIUM CHLORIDE 0.9% FLUSH 10 ML IV ×2 (08:24→20:41)
[2024-12-06] MEDS: POTASSIUM CHLORIDE 20 MEQ/15 ML UDC 40 MEQ PO (10:30)
--- NOTE | 2024-12-06 10:40 | OT.IP.TRT ---
Current Diagnoses Hypo-osmolality and hyponatremia (12/03/24) Unilateral inguinal hernia, with obstruction, without gangrene, not specified as recurrent (12/03/24) Complete intestinal obstruction, unspecified as to cause (12/03/24) Surgery Performed Operation Date: 12/03/24 22:15 Actual Procedures p Hernia Repair - Inguinal, small bowel resection(Right) - Fuad Singh MD Occupational Therapy Treatment Note M2 OT-IP Current Condition Start: 12/04/24 14:19 Freq: Status: Active Protocol: Document 12/04/24 14:19 CGR (Rec: 12/04/24 15:01 CGR [id number]) Occupational Therapy Current Condition Current Condition Evaluation Date 12/04/24 Treatment Diagnosis incarcerated inguinal hernia, 12/03 small bowel resection Diagnosis Onset Date 12/03/24 M3 OT- IP Subjective and Pain Start: 12/04/24 14:19 Freq: Status: Active Protocol: Document 12/06/24 11:36 CGR (Rec: 12/06/24 12:12 CGR [id number]) OT- Subjective Occupational Therapy Visit Type Type Treatment Note Visit Start Time 10:02 Visit Stop Time 10:40 Notes Pt is requesting to wash her hair. OT Pain Assessment Pain When Pain Assessed At Rest Pain Present Pain Present Denied Pain M4 OT- IP ADL's Start: 12/04/24 14:19 Freq: Status: Active Protocol: Document 12/06/24 11:36 CGR (Rec: 12/06/24 12:12 CGR [id number]) OT [id number] Comments OT Self-Feeding Comments not meal time OT ADL-Grooming General Evaluation Grooming Ability Standby Assistance Areas Needing Assistance Combing/Brushing Hair,Face Washing Comments OT Grooming Comments pt standing sink for for washing face and brushing hair . OT ADL-Oral Care General Eval Oral Care Ability Standby Assistance Areas of Assistance Brushing Teeth,Retrieving/Set- Up of Items Comments Oral Care Comments standing at sink for brushing teeth OT ADL-Dressing Comments OT Dressing Comments not performed OT ADL-Toileting General Evaluation Toileting Ability Total Assistance Comments OT Toileting Comments Lara OT ADL-Bathing Bathing Type Bathing Type Sponge Bath General Evaluation Bathing Ability Maximal Assistance Comments OT Bathing Comments Pt stood at sink for washing hair. Pt was able to lean over the sink for washing out hair . 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 M6 OT- IP Functional Cognition Start: 12/04/24 14:19 Freq: Status: Active Protocol: Document 12/06/24 11:36 CGR (Rec: 12/06/24 12:12 CGR [id number]) Cognitive Factors Limiting Selfcare Function Cognitive Ability Level of Alertness Alert Patient Orientation Name,Age,Birthday,Month,Date, Year,Day of Week,Place, Situation Attention Span Ability Capable of Focused Attention, Capable of Sustained Attention OT- Vision and Hearing OT- Hearing Assessment OT- Hearing Assessment Hearing Impaired,Use of Hearing Aids M7 OT- IP Mobility and Balance Start: 12/04/24 14:19 Freq: Status: Active Protocol: Document 12/06/24 11:36 CGR (Rec: 12/06/24 12:12 CGR [id number]) OT-Transfer Assessment Sit to and From Stand Sit to and from Stand Contact Guard Assistance Transfers Transfer Ability Standby Assistance Technique Transfer Destination Chair Transfer Technique Stand Step Pivot Devices Transfer Assistive Devices Gait Belt,Front Wheeled Walker Comments Mobility Comments Pt stood at sink for ADLs and ambulated back and forth to sink ~15 feet each direction. OT- Balance Assessment Sitting Balance and Reactions Static Sitting Balance Ability Good Dynamic Sitting Balance Ability Good M8 OT- IP Objective Assessments Start: 12/04/24 14:19 Freq: Status: Active Protocol: Document 12/04/24 14:19 CGR (Rec: 12/04/24 15:01 CGR [id number]) OT Gross Range of Motion Upper Extremity Range of Motion Assessment Within Functional Limits OT Strength Upper Extremity Strength Assessment Within Functional Limits Comments Strength Comments grossly 4/5 OT- Coordination Assessment Upper Extremity Finger to Nose Test Within Functional Limits Finger Tapping Test Within Functional Limits OT-Muscle Tone Assessment Muscle Tone WNL Yes OT Sensation Assessment Edema Edema Absent M9 OT- IP Assessment and Plan Start: 12/04/24 14:19 Freq: Status: Active Protocol: Document 12/06/24 11:36 CGR (Rec: 12/06/24 12:12 CGR [id number]) OT Summary Assessment and Plan Potential Rehabilitation Potential Good Analytic Complexity at Evaluation Moderate Summary OT Impairments Pain,Strength,Balance, Functional Mobility,Grooming, Dressing,Toileting,Bathing, Toilet Transfers,Shower Transfers,Activity Tolerance Progress Towards Goals Progressing Toward Goals,Slow Progress due to Medical Issues Assessment Summary Pt with increased endurance today with ambulation to the sink and ADLS standing including washing her hair. Pt returned to sitting in chair at end of session, slightly SOB with upright activities. Pt will likely benefit from SNF prior to discharge. Goals Grooming Goal Independent Dressing Goal Independent Toileting Goal Independent Bathing Goal Independent Toilet Transfer Goal Independent Shower Transfer Goal Independent Days to Meet Goals 14 Frequency of Treatment Other frequency 5x a week Treatment Plan OT Treatment Plan ADL Training,Functional Mobility,Patient/Family Education,Discharge Planning Other Treatment Recommendations and Next ADLs at sink, LB dressing Treatment Focus after abdominal sx, shower if ok Discharge Recommendations OT Discharge Recommendations SNF Rehab Transportation Needs at Discharge Private Vehicle
--- NOTE | 2024-12-06 11:54 | DI.RAD.S_ITS ---
PROCEDURE: XR CHEST 1V INDICATIONS: Cough TECHNIQUE: One view of the chest was acquired. COMPARISON: [facility], CR, XR CHEST 1V, 12/03/2024, 17:24. FINDINGS: Surgical changes and devices: Right shoulder arthroplasty Lungs and pleura: Small left pleural effusion and probable associated left basilar atelectasis. Mediastinum: Mediastinal contours appear normal. Cardiomegaly, as before Bones and chest wall: No suspicious bony lesions. Overlying soft tissues appear unremarkable. IMPRESSION: Cardiomegaly. Development of small left pleural effusion and probable associated left basilar atelectasis. Dictated by: Reginald Israel M.D. on 12/06/2024 at 13:18 Approved by: Reginald Israel M.D. on 12/06/2024 at 13:18
--- NOTE | 2024-12-06 13:06 | PM.PNPO.1 ---
Subjective Subjective Date Patient Seen: 12/06/24 Time Patient Seen: 13:06 Interval history: Patient had some concern of breathing issues overnight thought to be due to volume overload. Denies any nausea or vomiting. No bowel function yet. Tolerating nasogastric tube removal well. Exam Vital Signs (past 8 hours): - 12/06/24 06:19 12/06/24 06:30 12/06/24 06:30 Temperature 98.1 F Pulse Rate 96 H 95 H 92 H Respiratory Rate 24 Blood Pressure 158/70 H Pulse Oximetry 92 95 96 Oxygen Flow Rate 2 12/06/24 06:52 12/06/24 06:52 12/06/24 07:00 Temperature Pulse Rate 95 H 91 H Respiratory Rate Blood Pressure 158/70 H Pulse Oximetry 97 99 Oxygen Flow Rate 12/06/24 07:30 12/06/24 08:00 12/06/24 08:20 Temperature Pulse Rate 87 86 Respiratory Rate Blood Pressure 149/67 H Pulse Oximetry 98 98 Oxygen Flow Rate 12/06/24 08:20 12/06/24 08:30 12/06/24 09:00 Temperature Pulse Rate 90 85 86 Respiratory Rate Blood Pressure Pulse Oximetry 99 98 98 Oxygen Flow Rate 12/06/24 09:40 Temperature Pulse Rate 78 Respiratory Rate Blood Pressure Pulse Oximetry Oxygen Flow Rate Fraction of Inspired Oxygen 28 SaO2/FiO2 Ratio 328 Oxygen Delivery Method Room Air Oxygen Flow Rate 2 Narrative Exam Narrative: INDU drain is serosanguineous Objective Labs 12/05/24 04:08 12/06/24 04:07 Labs: Laboratory Results - last 24 hr 12/06/24 12/06/24 04:07 07:02 Sodium 126 L Potassium 3.2 L Chloride 97 L Carbon Dioxide 23 BUN 19 H Creatinine 0.56 Estimated GFR > 60 BUN/Creatinine Ratio 33.9 H Glucose 100 Calcium 7.5 L Magnesium 2.5 H NT-Pro-B Natriuret Pep 379 PFSH Medical History History of COVID-19 (05/2024) Hiatal hernia Serum sodium decreased Encounter for subsequent annual wellness visit (AWV) in Medicare patient Vision disorder Rosacea Shoulder pain (~2014) Foot pain Measles Chicken pox (~1949) Hearing loss (~2021) Cataracts, bilateral (~2014) History of urinary incontinence Neutropenia 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 Allergic rhinitis Osteoarthritis (~1997) Obstructive sleep apnea of adult Primary insomnia Lichen sclerosus et atrophicus Vitamin D deficiency Chronic cough Osteopenia HTN (hypertension) (~2009) Hyperlipidemia Surgical History 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) Hx of LASIK Anesthesia History of hand surgery (~2022) History of breast mammoplasty S/P foot surgery, right S/P UVPP (uvulopalatopharyngoplasty) Hx of bilateral breast reduction surgery S/P trigger finger release History of facelift Hx of bladder repair surgery Hx of partial thyroidectomy Hx of partial thyroidectomy Family History Mother Heart attack Brother History of heart disease Social History household members: none occupational status: previously employed Smoking Status: Never smoker alcohol intake: current substance use type: does not use Assessment & Plan Post-op Postoperative Procedures: Procedures Operation Date: 12/03/24 22:15 Actual Procedure Side Surgeon p Hernia Repair - Inguinal, small bowel resection Right Fuad Singh MD Postoperative day: 3 Postoperative status: doing well Postoperative status narrative: Continue liquid diet until bowel movement, then started on a soft diet. Encourage ambulation
[2024-12-06] MEDS: FLUTICASONE 120 SPRAY/16 GM SPRAY.SUSP NASAL (19:34)
[2024-12-06] MEDS: lisinopriL 10 MG TABLET PO (20:34)
[2024-12-06] MEDS: ATORVASTATIN 20 MG TABLET 10 MG PO (20:36)
[2024-12-07] VITALS (54 sets, daily range): BP systolic 133–178; BP diastolic 59–82; PULSE 68–93; RESP 18–20; TEMP 36.3–37.2; O2SAT 91–99
[2024-12-07] MEDS: PIPERACILLIN/TAZO 3.375 GM in SODIUM CHLORIDE 0.9% 100 ML IV ×3 (01:13→18:05)
[2024-12-07 05:22] LABS: Add Manual Diff / Slide Review NO; Basophils Absolute Auto 0 /uL (0-100); Basophils Percent Auto 0.3 % (0-2); Eosinophils Absolute Auto 300 /uL (0-450); Hematocrit 27.4 % (36-46); Hemoglobin 9.1 g/dL (12.0-16.0); Lymphocytes Absolute Auto 500 /uL (1100-4500); Lymphocytes Percent Auto 3.9 % (25-40); Mean Corpuscular HGB Conc 33.3 % (30-36); Mean Corpuscular Hemoglobin 29.2 PG (26-34); Mean Corpuscular Volume 87.7 fL (80-100); Monocytes Absolute Auto 900 /uL (0-900); Monocytes Percent Auto 7.1 % (3-14); Neutrophils Absolute Auto 11500 /uL (1500-7000); Neutrophils Percent Auto 86.7 % (50-75); Platelet Count 321 X10^3/uL (150-400); Red Blood Cell Count 3.12 X10^6/uL (4.0-5.2); Red Cell Distribution Width 14.9 % (11.6-14.8); White Blood Cell Count 13.3 X10^3/uL (4.5-11.0)
[2024-12-07 05:29] LABS: BUN Creatinine Ratio 32.6 (6-22); Blood Urea Nitrogen 15 mg/dL (7-17); Calcium 7.7 mg/dL (8.4-10.2); Carbon Dioxide 28 mmol/L (22-32); Chloride 97 mmol/L (98-107); Estimated Glomerular Filt Rate > 60 mL/min (>60); Glucose 108 mg/dL (80-110); HEMOLYSIS < 15 (0-50); Potassium 3.1 mmol/L (3.4-5.1); Sodium 129 mmol/L (137-145)
[2024-12-07] MEDS: LEVOTHYROXINE 100 MCG TABLET PO (06:40)
--- NOTE | 2024-12-07 08:13 | P.PN_ITS ---
Subjective Subjective Date Patient Seen: 12/07/24 Interval history: She is seen here in her room to follow-up the femoral hernia surgery, hypokalemia and upper respiratory infection. She continues with wheezing but no significant hypoxia. Her sodium level is 129 and the potassium is 3.1. We will give additional 60 mEq of oral potassium today as 40 yesterday did not seem to do much. She says she is sleeping much better now by using her CPAP from home. She continues with poor appetite. The hemoglobin is stable at 9.1 and the white blood count is 13.3. She has been accepted to [facility] for rehab when stable. Exam Vital Signs (past 8 hours): - 12/07/24 00:30 12/07/24 01:00 12/07/24 01:30 Temperature Pulse Rate 79 79 76 Respiratory Rate Blood Pressure Pulse Oximetry 92 94 95 Oxygen Flow Rate 12/07/24 02:00 12/07/24 02:30 12/07/24 03:00 Temperature Pulse Rate 77 76 77 Respiratory Rate Blood Pressure Pulse Oximetry 94 93 95 Oxygen Flow Rate 12/07/24 03:30 12/07/24 04:00 12/07/24 04:00 Temperature 97.5 F L Pulse Rate 78 86 83 Respiratory Rate 18 Blood Pressure 164/77 H Pulse Oximetry 95 96 97 Oxygen Flow Rate 0 12/07/24 04:02 12/07/24 04:02 12/07/24 04:04 Temperature Pulse Rate 85 Respiratory Rate Blood Pressure 178/82 H 164/77 H Pulse Oximetry 96 Oxygen Flow Rate 12/07/24 04:04 12/07/24 04:30 12/07/24 05:00 Temperature Pulse Rate 83 85 77 Respiratory Rate Blood Pressure Pulse Oximetry 96 96 96 Oxygen Flow Rate 12/07/24 05:30 12/07/24 06:00 12/07/24 06:30 Temperature Pulse Rate 78 79 83 Respiratory Rate Blood Pressure Pulse Oximetry 95 95 96 Oxygen Flow Rate 12/07/24 07:00 12/07/24 07:30 Temperature Pulse Rate 79 82 Respiratory Rate Blood Pressure Pulse Oximetry 95 96 Oxygen Flow Rate Fraction of Inspired Oxygen 28 SaO2/FiO2 Ratio 328 Oxygen Delivery Method Room Air Oxygen Flow Rate 0 Narrative Exam Narrative: Alert and oriented x3. No apparent distress Wheezing bilaterally Heart is regular rate and rhythm without murmur Extremities have no ankle edema Abdomen mild right lower quadrant incisional tenderness. Objective Labs 12/07/24 04:09 12/07/24 04:09 Labs: Laboratory Results - last 24 hr 12/07/24 04:09 WBC 13.3 H RBC 3.12 L Hgb 9.1 L Hct 27.4 L MCV 87.7 MCH 29.2 MCHC 33.3 RDW 14.9 H Plt Count 321 Neut % (Auto) 86.7 H Lymph % (Auto) 3.9 L [place] % (Auto) 7.1 Eos % (Auto) 2.0 Baso % (Auto) 0.3 Neut # (Auto) 13573 H Lymph # (Auto) 500 L [place] # (Auto) 900 Eos # (Auto) 300 Baso # (Auto) 0 Sodium 129 L Potassium 3.1 L Chloride 97 L Carbon Dioxide 28 BUN 15 Creatinine 0.46 L Estimated GFR > 60 BUN/Creatinine Ratio 32.6 H Glucose 108 Calcium 7.7 L PFSH Medical History History of COVID-19 (05/2024) Hiatal hernia Serum sodium decreased Encounter for subsequent annual wellness visit (AWV) in Medicare patient Vision disorder Rosacea Shoulder pain (~2014) Foot pain Measles Chicken pox (~1949) Hearing loss (~2021) Cataracts, bilateral (~2014) History of urinary incontinence Neutropenia 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 Allergic rhinitis Osteoarthritis (~1997) Obstructive sleep apnea of adult Primary insomnia Lichen sclerosus et atrophicus Vitamin D deficiency Chronic cough Osteopenia HTN (hypertension) (~2009) Hyperlipidemia Surgical History 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) Hx of LASIK Anesthesia History of hand surgery (~2022) History of breast mammoplasty S/P foot surgery, right S/P UVPP (uvulopalatopharyngoplasty) Hx of bilateral breast reduction surgery S/P trigger finger release History of facelift Hx of bladder repair surgery Hx of partial thyroidectomy Hx of partial thyroidectomy Family History Mother Heart attack Brother History of heart disease Social History household members: none occupational status: previously employed Smoking Status: Never smoker alcohol intake: current substance use type: does not use Assessment & Plan Assessment & Plan narrative: Incarcerated femoral hernia. S/P Strangulated femoral hernia (Gangrenous small bowel with perforation). Small bowel resection with anastomosis, open repair of right femoral hernia on 12/03/24. -Continue to correct sodium. -now on a liquid diet -Zosyn IV Neutropenia. Resolved Respiratory Symptoms -12/06/24, fluid overload? IVF stopped and Lasix given overnight. -CXR without signs of pneumonia. Cardiomegaly. Development of small left pleural effusion and probable associated left basilar atelectasis. -wheezing without signs of hypoxia. Continues with albuterol. ABLA -Postop hgb 9.1, follow. Hyponatremia hypovolemia. Likely from dehydration since patient has severe nausea and vomiting. NS and monitor sodium closely. NA slowly correcting from 126 to 129 today. Hypothyroidism. Resumed home Synthroid. TSH 6.25. HTN. Monitor BP and resumed home medications. Hypomagnesemia -Mg 1.5 on 12/05/24. Supplemented IV X 1 and up to 2.5 on 12/06/24. HLD. Atorvastatin. DVT PPx SCDs and defer chemical PPx to general surgery Code status full code Disposition home in 2-3 days Time-Based Coding :: [TOTAL MINUTES] spent with patient and on the chart (including review of chart, obtaining history, exam, reviewing outside data, placing orders, documenting exam and treatment plan, and counseling patient) on [DATE].
[2024-12-07] MEDS: PANTOPRAZOLE 40 MG VIAL IV (08:51)
[2024-12-07] MEDS: POTASSIUM CHLORIDE 20 MEQ/15 ML UDC 60 MEQ PO (08:51)
[2024-12-07] MEDS: ASPIRIN EC 81 MG TABLET PO ×2 (08:51→21:23)
[2024-12-07] MEDS: FLUTICASONE 120 SPRAY/16 GM SPRAY.SUSP NASAL ×2 (08:51→21:24)
[2024-12-07] MEDS: SODIUM CHLORIDE 0.9% FLUSH 10 ML IV ×2 (08:52→21:25)
--- NOTE | 2024-12-07 12:26 | PM.PNPO.1 ---
Subjective Subjective Date Patient Seen: 12/07/24 Time Patient Seen: 12:26 Interval history: Patient is tolerating clear liquid diet without nausea or vomiting. Nursing states that they can hear some bowel sounds, but no flatus or bowel movement yet. INDU drain is serous and about 25 mL out for the last 12 hours. Exam Vital Signs (past 8 hours): - 12/07/24 04:30 12/07/24 05:00 12/07/24 05:30 Pulse Rate 85 77 78 Blood Pressure Pulse Oximetry 96 96 95 Oxygen Delivery Method 12/07/24 06:00 12/07/24 06:30 12/07/24 07:00 Pulse Rate 79 83 79 Blood Pressure Pulse Oximetry 95 96 95 Oxygen Delivery Method 12/07/24 07:30 12/07/24 08:00 12/07/24 08:23 Pulse Rate 82 80 Blood Pressure Pulse Oximetry 96 96 Oxygen Delivery Method Room Air 12/07/24 08:30 12/07/24 09:02 12/07/24 09:30 Pulse Rate 81 91 H 88 Blood Pressure Pulse Oximetry 98 94 97 Oxygen Delivery Method 12/07/24 10:00 12/07/24 10:30 12/07/24 11:00 Pulse Rate 92 H 85 87 Blood Pressure Pulse Oximetry 98 97 97 Oxygen Delivery Method 12/07/24 11:30 12/07/24 12:00 12/07/24 12:12 Pulse Rate 87 83 88 Blood Pressure Pulse Oximetry 96 97 97 Oxygen Delivery Method 12/07/24 12:13 Pulse Rate Blood Pressure 133/71 Pulse Oximetry Oxygen Delivery Method Fraction of Inspired Oxygen 28 SaO2/FiO2 Ratio 328 Oxygen Delivery Method Room Air Oxygen Flow Rate 0 Narrative Exam Narrative: Incision is clean, dry, intact. INDU drain is serous Objective Labs 12/07/24 04:09 12/07/24 04:09 Labs: Laboratory Results - last 24 hr 12/07/24 04:09 WBC 13.3 H RBC 3.12 L Hgb 9.1 L Hct 27.4 L MCV 87.7 MCH 29.2 MCHC 33.3 RDW 14.9 H Plt Count 321 Neut % (Auto) 86.7 H Lymph % (Auto) 3.9 L [place] % (Auto) 7.1 Eos % (Auto) 2.0 Baso % (Auto) 0.3 Neut # (Auto) 52961 H Lymph # (Auto) 500 L [place] # (Auto) 900 Eos # (Auto) 300 Baso # (Auto) 0 Sodium 129 L Potassium 3.1 L Chloride 97 L Carbon Dioxide 28 BUN 15 Creatinine 0.46 L Estimated GFR > 60 BUN/Creatinine Ratio 32.6 H Glucose 108 Calcium 7.7 L PFSH Medical History History of COVID-19 (05/2024) Hiatal hernia Serum sodium decreased Encounter for subsequent annual wellness visit (AWV) in Medicare patient Vision disorder Rosacea Shoulder pain (~2014) Foot pain Measles Chicken pox (~1949) Hearing loss (~2021) Cataracts, bilateral (~2014) History of urinary incontinence Neutropenia 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 Allergic rhinitis Osteoarthritis (~1997) Obstructive sleep apnea of adult Primary insomnia Lichen sclerosus et atrophicus Vitamin D deficiency Chronic cough Osteopenia HTN (hypertension) (~2009) Hyperlipidemia Surgical History 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) Hx of LASIK Anesthesia History of hand surgery (~2022) History of breast mammoplasty S/P foot surgery, right S/P UVPP (uvulopalatopharyngoplasty) Hx of bilateral breast reduction surgery S/P trigger finger release History of facelift Hx of bladder repair surgery Hx of partial thyroidectomy Hx of partial thyroidectomy Family History Mother Heart attack Brother History of heart disease Social History household members: none occupational status: previously employed Smoking Status: Never smoker alcohol intake: current substance use type: does not use Assessment & Plan Post-op Postoperative Procedures: Procedures Operation Date: 12/03/24 22:15 Actual Procedure Side Surgeon p Hernia Repair - Inguinal, small bowel resection Right Fuad Singh MD Postoperative day: 4 Postoperative status: doing well Postoperative status narrative: Continue clears until flatus or bowel movement. We will likely remove drain tomorrow given diminishing output and no signs of infection. Time Spent With Patient Time with patient: less than 15 minutes
--- NOTE | 2024-12-07 12:31 | PT-IP ANOTE ---
Checked in on pt who reports that she is tired after being up about 10' with [employer] including walking to window and up to sink. She does not think that she can work with PT at this time. Con't PT efforts.
--- NOTE | 2024-12-07 13:42 | CM.DPC ---
DCP Cont. Reviewed EMR and team rounds for status updates. Pt was going to d/c to [facility] today, however she is not medically ready. Per Hospitalist, likely won't be ready until Wednesday or Wednesday. Called [facility] and cancelled the admit for today, rescheduled for Monday 12/11. Transport time will need to be confirmed that am, and the PASSAR also needs to be done.
[2024-12-07] MEDS: HEPARIN 5,000 UNIT/ML VIAL 5000 UNIT SUBCUT ×2 (14:13→21:25)
--- NOTE | 2024-12-07 14:31 | OT.IP.TRT ---
Current Diagnoses Hypo-osmolality and hyponatremia (12/03/24) Unilateral inguinal hernia, with obstruction, without gangrene, not specified as recurrent (12/03/24) Complete intestinal obstruction, unspecified as to cause (12/03/24) Surgery Performed Operation Date: 12/03/24 22:15 Actual Procedures p Hernia Repair - Inguinal, small bowel resection(Right) - Fuad Singh MD Occupational Therapy Treatment Note M2 OT-IP Current Condition Start: 12/04/24 14:19 Freq: Status: Active Protocol: Document 12/04/24 14:19 CGR (Rec: 12/04/24 15:01 R [id number]) Occupational Therapy Current Condition Current Condition Evaluation Date 12/04/24 Treatment Diagnosis incarcerated inguinal hernia, 12/03 small bowel resection Diagnosis Onset Date 12/03/24 M3 OT- IP Subjective and Pain Start: 12/04/24 14:19 Freq: Status: Active Protocol: Document 12/07/24 14:33 [facility] (Rec: 12/07/24 14:37 [facility] [id number]) OT- Subjective Occupational Therapy Visit Type Type Treatment Note Visit Start Time 14:00 Visit Stop Time 14:31 Occupational Therapy Visit Comments Patient Comments Pt agreed to go over energy conservation strategies and equipment suggestions. Patient/Caregiver Goals TO get better and go to skilled rehab. OT Pain Assessment Pain When Pain Assessed During Mobility Pain Present Pain Present Pain Reported Location abdomen Pain Behaviors Facial Grimacing M4 OT- IP ADL's Start: 12/04/24 14:19 Freq: Status: Active Protocol: Document 12/07/24 14:33 [facility] (Rec: 12/07/24 14:37 [facility] [id number]) OT [id number] Comments OT Self-Feeding Comments Pt still on clear liquids. OT ADL-Bathing Comments OT Bathing Comments Pt could benefit from a transfer pole at home while her walk in shower in currently being remodeled and that she has to use the tub/shower for now. M5 OT- IP IADL's Start: 12/04/24 14:19 Freq: Status: Active Protocol: Document 12/04/24 14:19 [facility] (Rec: 12/04/24 15:01 [facility] [id number]) OT-Instrumental Activities of Daily Living Deficits IADL Deficits Identified No Deficits Home Safety Awareness Awareness of Need for Assistance at Home Good Awareness Ability to Problem Solve Emergency Able to Problem Solve Situations Medication Management Medication Management No Deficits Identified Money Management Money Management No Deficits Identified Meal Preparation Meal Preparation No Deficits Identified Family Helper Family Helper No Deficits Identified Driving 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 OT- IP Functional Cognition Start: 12/04/24 14:19 Freq: Status: Active Protocol: Document 12/07/24 14:33 [facility] (Rec: 12/07/24 14:37 [facility] [id number]) Cognitive Factors Limiting Selfcare Function Cognitive Ability Level of Alertness Alert Patient Orientation Name,Age,Birthday,Month,Date, Year,Day of Week,Place, Situation Attention Span Ability Capable of Focused Attention, Capable of Sustained Attention Cognitive Comments Cognitive Assessment Comments ABle to go over energy conservation needs and talked about what can be done to assist her at home equipment and set-up ruano. M7 OT- IP Mobility and Balance Start: 12/04/24 14:19 Freq: Status: Active Protocol: Document 12/06/24 11:36 [facility] (Rec: 12/06/24 12:12 CGR [id number]) OT-Transfer Assessment Sit to and From Stand Sit to and from Stand Contact Guard Assistance Transfers Transfer Ability Standby Assistance Technique Transfer Destination Chair Transfer Technique Stand Step Pivot Devices Transfer Assistive Devices Gait Belt,Front Wheeled Walker Comments Mobility Comments Pt stood at sink for ADLs and ambulated back and forth to sink ~15 feet each direction. OT- Balance Assessment Sitting Balance and Reactions Static Sitting Balance Ability Good Dynamic Sitting Balance Ability Good M8 OT- IP Objective Assessments Start: 12/04/24 14:19 Freq: Status: Active Protocol: Document 12/04/24 14:19 [facility] (Rec: 12/04/24 15:01 CGR [id number]) OT Gross Range of Motion Upper Extremity Range of Motion Assessment Within Functional Limits OT Strength Upper Extremity Strength Assessment Within Functional Limits Comments Strength Comments grossly 4/5 OT- Coordination Assessment Upper Extremity Finger to Nose Test Within Functional Limits Finger Tapping Test Within Functional Limits OT-Muscle Tone Assessment Muscle Tone WNL Yes OT Sensation Assessment Edema Edema Absent M9 OT- IP Assessment and Plan Start: 12/04/24 14:19 Freq: Status: Active Protocol: Document 12/07/24 14:33 [facility] (Rec: 12/07/24 14:37 [facility] [id number]) OT Summary Assessment and Plan Potential Rehabilitation Potential Good Analytic Complexity at Evaluation Moderate Summary OT Impairments Pain,Strength,Balance, Functional Mobility,Grooming, Dressing,Toileting,Bathing, Toilet Transfers,Shower Transfers,Activity Tolerance Progress Towards Goals Progressing Toward Goals,Slow Progress due to Medical Issues Assessment Summary Pt states able to walk a little more today but gets tired quickly. OT able to go over energy conservation strategies for ADL and IADL needs. Pt to go to skilled rehab when medically stable. Goals Grooming Goal Independent Dressing Goal Independent Toileting Goal Independent Bathing Goal Independent Toilet Transfer Goal Independent Shower Transfer Goal Independent Days to Meet Goals 20 Frequency of Treatment Other frequency 5x a week Treatment Plan OT Treatment Plan ADL Training,Functional Mobility,Patient/Family Education,Discharge Planning Other Treatment Recommendations and Next ADLs at sink, LB dressing Treatment Focus after abdominal sx, shower if ok Discharge Recommendations OT Discharge Recommendations SNF Rehab Transportation Needs at Discharge Private Vehicle,Wheelchair/ Cabulance
[2024-12-07] MEDS: lisinopriL 10 MG TABLET PO (21:23)
[2024-12-07] MEDS: ATORVASTATIN 20 MG TABLET 10 MG PO (21:25)
[2024-12-08] VITALS (36 sets, daily range): BP systolic 124–195; BP diastolic 63–91; PULSE 74–93; RESP 18; TEMP 36.2–37.1; O2SAT 93–98
[2024-12-08] MEDS: PIPERACILLIN/TAZO 3.375 GM in SODIUM CHLORIDE 0.9% 100 ML IV ×3 (01:25→17:53)
[2024-12-08 05:41] LABS: Alanine Aminotransferase 19 IU/L (<35); Albumin 2.7 g/dL (3.5-5.0); Alkaline Phosphatase 123 U/L (38-126); Aspartate Aminotransferase 33 IU/L (14-36); Bilirubin Total 0.8 mg/dL (0.2-1.3); Blood Urea Nitrogen 13 mg/dL (7-17); Calcium 7.4 mg/dL (8.4-10.2); Carbon Dioxide 27 mmol/L (22-32); Chloride 97 mmol/L (98-107); Estimated Glomerular Filt Rate > 60 mL/min (>60); Globulin 2.8 g/dL (1.7-4.1); Glucose 111 mg/dL (80-110); HEMOLYSIS 20 (0-50); Potassium 3.3 mmol/L (3.4-5.1); Sodium 126 mmol/L (137-145); Total Protein 5.5 g/dL (6.3-8.2)
[2024-12-08 05:43] LABS: Hematocrit 27.9 % (36-46); Hemoglobin 9.3 g/dL (12.0-16.0); Mean Corpuscular HGB Conc 33.2 % (30-36); Mean Corpuscular Hemoglobin 29.2 PG (26-34); Mean Corpuscular Volume 88.1 fL (80-100); Platelet Count 338 X10^3/uL (150-400); Red Blood Cell Count 3.17 X10^6/uL (4.0-5.2); White Blood Cell Count 12.5 X10^3/uL (4.5-11.0)
[2024-12-08 05:47] LABS: Add Manual Diff / Slide Review YES
[2024-12-08 06:11] LABS: Neutrophils Absolute Manual 11125 /uL (3000-5900); RBC Morphology Normal Morphology; Total Cells Counted 100
[2024-12-08] MEDS: HEPARIN 5,000 UNIT/ML VIAL 5000 UNIT SUBCUT ×3 (06:45→21:13)
[2024-12-08] MEDS: LEVOTHYROXINE 100 MCG TABLET PO ×2 (06:45→08:20)
--- NOTE | 2024-12-08 08:22 | P.PN_ITS ---
Subjective Subjective Date Patient Seen: 12/08/24 Interval history: She is seen today to follow-up her bowel obstruction, femoral hernia repair, anemia and fluid overload. She has significant edema today and remains hypokalemic with a potassium of 3.3. The albumin is low at 2.7. The sodium is also low at 126. She has a Lara catheter in with clear urine noted. Surgery is advancing her diet and she is passing gas. Exam Vital Signs (past 8 hours): - 12/08/24 00:30 12/08/24 01:00 12/08/24 01:30 Temperature Pulse Rate 81 79 82 Respiratory Rate Blood Pressure Pulse Oximetry 95 95 94 Oxygen Flow Rate 12/08/24 02:00 12/08/24 02:30 12/08/24 03:00 Temperature Pulse Rate 77 80 82 Respiratory Rate Blood Pressure Pulse Oximetry 97 95 97 Oxygen Flow Rate 12/08/24 03:30 12/08/24 04:00 12/08/24 04:00 Temperature 97.5 F L Pulse Rate 84 86 78 Respiratory Rate 18 Blood Pressure 171/76 H Pulse Oximetry 95 96 95 Oxygen Flow Rate 0 12/08/24 04:23 12/08/24 04:23 12/08/24 04:25 Temperature Pulse Rate 83 Respiratory Rate Blood Pressure 195/84 H 194/91 H Pulse Oximetry 95 Oxygen Flow Rate 12/08/24 04:25 12/08/24 04:30 12/08/24 04:46 Temperature Pulse Rate 85 85 Respiratory Rate Blood Pressure 171/76 H Pulse Oximetry 96 97 Oxygen Flow Rate 12/08/24 04:46 12/08/24 05:00 12/08/24 05:30 Temperature Pulse Rate 85 77 74 Respiratory Rate Blood Pressure Pulse Oximetry 96 96 97 Oxygen Flow Rate 12/08/24 06:00 12/08/24 06:30 12/08/24 07:00 Temperature Pulse Rate 75 78 76 Respiratory Rate Blood Pressure Pulse Oximetry 95 97 97 Oxygen Flow Rate 12/08/24 07:30 12/08/24 07:53 12/08/24 07:53 Temperature Pulse Rate 86 83 Respiratory Rate Blood Pressure 156/74 H Pulse Oximetry 95 95 Oxygen Flow Rate 12/08/24 08:00 Temperature Pulse Rate 81 Respiratory Rate Blood Pressure Pulse Oximetry 96 Oxygen Flow Rate Fraction of Inspired Oxygen 28 SaO2/FiO2 Ratio 328 Oxygen Delivery Method Room Air Oxygen Flow Rate 0 Narrative Exam Narrative: She is alert and oriented, in no apparent distress. Heart is regular rate and rhythm without murmur Lungs are clear to auscultation bilaterally Abdomen is soft, bowel sounds are active There is 1+ edema in both ankles. Objective Labs 12/08/24 04:30 12/08/24 04:30 Labs: Laboratory Results - last 24 hr 12/08/24 04:30 WBC 12.5 H RBC 3.17 L Hgb 9.3 L Hct 27.9 L MCV 88.1 MCH 29.2 MCHC 33.2 RDW 15.0 H Plt Count 338 Neut % (Auto) Not Reportable Lymph % (Auto) Not Reportable [place] % (Auto) Not Reportable Eos % (Auto) Not Reportable Baso % (Auto) Not Reportable Lymph # (Auto) Not Reportable [place] # (Auto) Not Reportable Baso # (Auto) Not Reportable Total Counted 100 Seg Neutrophils % 82.0 H Band Neutrophils % 7.0 Lymphocytes % (Manual) 4.0 L Monocytes % (Manual) 6.0 Metamyelocytes % 1.0 H Neutrophils # (Manual) 47717 H RBC Morphology Normal morphology Sodium 126 L Potassium 3.3 L Chloride 97 L Carbon Dioxide 27 BUN 13 Creatinine 0.42 L Estimated GFR > 60 BUN/Creatinine Ratio 31.0 H Glucose 111 H Calcium 7.4 L Total Bilirubin 0.8 AST 33 ALT 19 Alkaline Phosphatase 123 Total Protein 5.5 L Albumin 2.7 L Globulin 2.8 Albumin/Globulin Ratio 1.0 [facility] Medical History History of COVID-19 (05/2024) Hiatal hernia Serum sodium decreased Encounter for subsequent annual wellness visit (AWV) in Medicare patient Vision disorder Rosacea Shoulder pain (~2014) Foot pain Measles Chicken pox (~1949) Hearing loss (~2021) Cataracts, bilateral (~2014) History of urinary incontinence Neutropenia 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 Allergic rhinitis Osteoarthritis (~1997) Obstructive sleep apnea of adult Primary insomnia Lichen sclerosus et atrophicus Vitamin D deficiency Chronic cough Osteopenia HTN (hypertension) (~2009) Hyperlipidemia Surgical History 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) Hx of LASIK Anesthesia History of hand surgery (~2022) History of breast mammoplasty S/P foot surgery, right S/P UVPP (uvulopalatopharyngoplasty) Hx of bilateral breast reduction surgery S/P trigger finger release History of facelift Hx of bladder repair surgery Hx of partial thyroidectomy Hx of partial thyroidectomy Family History Mother Heart attack Brother History of heart disease Social History household members: none occupational status: previously employed Smoking Status: Never smoker alcohol intake: current substance use type: does not use Assessment & Plan Assessment & Plan narrative: Incarcerated femoral hernia. S/P Strangulated femoral hernia (Gangrenous small bowel with perforation). Small bowel resection with anastomosis, open repair of right femoral hernia on 12/03/24. -Continue to correct sodium. -progressing diet today per surgery -Zosyn IV Neutropenia. Resolved Respiratory Symptoms -12/06/24, fluid overload? IVF stopped and Lasix given overnight. -CXR without signs of pneumonia. Cardiomegaly. Development of small left pleural effusion and probable associated left basilar atelectasis. -wheezing without signs of hypoxia. Continues with albuterol. -additional Lasix given on 12/08 ABLA -Postop hgb 9.1, follow. Hypokalemia -begin potassium chloride 20 mEq b.i.d. p.o. Hyponatremia hypovolemia. Likely from dehydration since patient has severe nausea and vomiting. NS and monitor sodium closely. NA slowly correcting and is currently in the 126-129 range. Hypothyroidism. Resumed home Synthroid. TSH 6.25. HTN. Monitor BP and resumed home medications. Hypomagnesemia -Mg 1.5 on 12/05/24. Supplemented IV X 1 and up to 2.5 on 12/06/24. HLD. Atorvastatin. DVT PPx SCDs and defer chemical PPx to general surgery Code status full code Disposition home in 2-3 days Time-Based Coding :: [TOTAL MINUTES] spent with patient and on the chart (including review of chart, obtaining history, exam, reviewing outside data, placing orders, documenting exam and treatment plan, and counseling patient) on [DATE].
[2024-12-08] MEDS: ASPIRIN EC 81 MG TABLET PO ×2 (09:04→20:59)
[2024-12-08] MEDS: FLUTICASONE 120 SPRAY/16 GM SPRAY.SUSP NASAL ×2 (09:04→20:56)
[2024-12-08] MEDS: PANTOPRAZOLE 40 MG VIAL IV (09:05)
[2024-12-08] MEDS: SODIUM CHLORIDE 0.9% FLUSH 10 ML IV ×2 (09:05→21:01)
[2024-12-08] MEDS: FUROSEMIDE 20 MG/2 ML VIAL IV (10:06)
--- NOTE | 2024-12-08 10:55 | PT.IPTN ---
Current Diagnoses Hypo-osmolality and hyponatremia (12/03/24) Unilateral inguinal hernia, with obstruction, without gangrene, not specified as recurrent (12/03/24) Complete intestinal obstruction, unspecified as to cause (12/03/24) Surgery Performed Operation Date: 12/03/24 22:15 Actual Procedures p Hernia Repair - Inguinal, small bowel resection(Right) - Fuad Singh MD Physical Therapy Treatment Note M2 PT-IP Current Condition Start: 12/04/24 11:12 Freq: NEEDED Status: Active Protocol: Document 12/04/24 11:44 MB (Rec: 12/04/24 12:36 MB [id number]) Physical Therapy Current Condition Current Condition Evaluation Date 12/04/24 Treatment Diagnosis Small bowel resection, hernia repair, has drain and catheter M3 PT-IP Subjective Start: 12/04/24 11:12 Freq: NEEDED Status: Active Protocol: Document 12/08/24 10:55 AB (Rec: 12/08/24 13:03 AB [id number]) Subjective Physical Therapy Visit Type Type Treatment Note Visit Start Time 10:55 Visit Stop Time 11:35 Number of REVERBERATORY SKIMMER Visits 0 Physical Therapy Visit Comments Patient Comments agreeable to do PT; refused to do bed mobility and steps M4 PT-IP Mobility and Gait Start: 12/04/24 11:12 Freq: NEEDED Status: Active Protocol: Document 12/08/24 10:55 AB (Rec: 12/08/24 13:03 AB [id number]) PT-Transfer Assessment Sit to and From Stand Sit to and from Stand Standby Assistance Equipment Transfer Assistive Device Gait Belt,Front Wheeled Walker Orthotic/Prosthetic Devices or Brace: No Comments Mobility Comments pt sitting on chair and agreed to do PT. agreed to walk but refused to do bed mobility. informed pt regarding stairs and pt also refused. completed sit to stand from chair SBA and ambulated in the hallway ~ 500 ft SBA using fWW. presents with slow paced gait and needing a few standing rest breaks in between walks. pt requested to brush her teeth by the sink . pt was able to maintain standing SBA while completing grooming. pt ambulated back to her chair. positioned pt on the chair. call light and table placed within reach. Gait Assessment Gait Gait Assistance Required: Standby Assistance Distance (Feet) 500 Assistive Devices Assistive Device Gait Belt,Front Wheeled Walker Orthotic/Prosthetic Devices or Brace: No Gait Deviations General Gait Pattern Decreased Stride Length, Decreased Feet Clearance Factors Limiting Gait Function Factors Limiting Gait Function Decreased Activity Tolerance, Decreased Strength,Limited Range of Motion,Poor Balance M5 PT-IP Objective Assessments Start: 12/04/24 11:12 Freq: NEEDED Status: Active Protocol: Document 12/04/24 11:44 MB (Rec: 12/04/24 12:36 MB [id number]) Orientation Orientation/Cognition Level of Alertness Alert Orientation Name,Age,Birthday,Month,Date, Year,Day of Week,Place, Situation Language Function Ability No Deficits Noted Safety Awareness Understands Safety Issues Memory Description No Deficits Noted Gross Range of Motion Upper Extremity ROM Impairments Defer to OT Lower Extremity ROM Assessment Within Functional Limits Impairments Recent LTKR and scar healing well and good function in leg today Strength Lower Extremity Strength Assessment Within Functional Limits Coordination Assessment Assessment Coordination Comments NT Sensation Assessment Comments Sensation Comments NT Muscle Tone Muscle Tone WNL Yes M6 PT-IP Treatment Start: 12/04/24 11:12 Freq: NEEDED Status: Active Protocol: Document 12/08/24 10:55 AB (Rec: 12/08/24 13:03 AB [id number]) Physical Therapy Treatment Education Education Provided Safety M7 PT-IP Assessment and Plan Start: 12/04/24 11:12 Freq: NEEDED Status: Active Protocol: Document 12/08/24 10:55 AB (Rec: 12/08/24 13:03 AB [id number]) PT Summary Assessment and Plan Potential Rehabilitation Potential Fair Summary Impairments Pain,ROM,Strength,Balance, Coordination,Sensation,Tone, Cognition,Bed Mobility, Transfers,Gait,Activity Tolerance Progress Towards Goals Slow Progress due to Medical Issues,Slow Progress due to Activity Tolerance Assessment Summary pt improving slowly with mobility and able to ambulate using FWW SBA. pt lives alone and stated that she plans to go to SNF rehab. Goals Bed Mobility Goal Independent Transfer Goal Independent,Front Wheeled Walker Gait Goal Independent,Front Wheel Walker Gait Distance 100 Other Goals Pt will ascend and descend 1 low step with LRAD and no more than CGA to allow safe home entrance. Days to Meet Goals 10 Frequency of Treatment Frequency Of Treatment Once a Day Treatment Plan Physical Therapy Treatment Plan Bed Mobility Training,Transfer Training,Gait Training, Therapeutic Exercise,Balance Retraining,Post Op Education, Discharge Planning,Hot or Cold Pack,Neuromuscular Re-ed, Coordination Retraining,Manual Therapy Precautions Abdominal Surgery Precautions Log Roll,Lifting Restrictions, Gait Belt above Incisional Area Recommendations To Nursing Amount of Assist Needed 1 Person Assist Discharge Recommendations PT Discharge Recommendations SNF Rehab Transportation Needs at Discharge Private Vehicle,Wheelchair/ Cabulance
--- NOTE | 2024-12-08 12:15 | PM.PNPO.1 ---
Subjective Subjective Date Patient Seen: 12/08/24 Time Patient Seen: 12:15 Interval history: Patient was sitting up in a chair. Is passing flatus per both the patient and nursing. No nausea or vomiting. Tolerating clear liquids. Drain output was only 20 mL overnight, drain removed by me today. Exam Vital Signs (past 8 hours): - 12/08/24 04:23 12/08/24 04:23 12/08/24 04:25 Pulse Rate 83 Blood Pressure 195/84 H 194/91 H Pulse Oximetry 95 Oxygen Delivery Method 12/08/24 04:25 12/08/24 04:30 12/08/24 04:46 Pulse Rate 85 85 Blood Pressure 171/76 H Pulse Oximetry 96 97 Oxygen Delivery Method 12/08/24 04:46 12/08/24 05:00 12/08/24 05:30 Pulse Rate 85 77 74 Blood Pressure Pulse Oximetry 96 96 97 Oxygen Delivery Method 12/08/24 06:00 12/08/24 06:30 12/08/24 07:00 Pulse Rate 75 78 76 Blood Pressure Pulse Oximetry 95 97 97 Oxygen Delivery Method 12/08/24 07:00 12/08/24 07:30 12/08/24 07:53 Pulse Rate 86 Blood Pressure 156/74 H Pulse Oximetry 95 Oxygen Delivery Method Room Air 12/08/24 07:53 12/08/24 08:00 Pulse Rate 83 81 Blood Pressure Pulse Oximetry 95 96 Oxygen Delivery Method Fraction of Inspired Oxygen 28 SaO2/FiO2 Ratio 328 Oxygen Delivery Method Room Air Oxygen Flow Rate 0 Narrative Exam Narrative: Gen: NAD, sitting comfortably in chair, appears well HEENT: Sclera are anicteric, head is normocephalic and atraumatic, trachea is midline. CV: RRR, no JVD Resp: clear to auscultation bilaterally, equal chest wall movement bilaterally Abd: soft, nontender, normoactive bowel sounds. Incision is clean, dry intact. Drain removed. Ext: no edema, full range of motion Neuro: Cranial nerves II-XII grossly intact, no focal deficits Skin: No erythema or ecchymosis Objective Labs 12/08/24 04:30 12/08/24 04:30 Labs: Laboratory Results - last 24 hr 12/08/24 04:30 WBC 12.5 H RBC 3.17 L Hgb 9.3 L Hct 27.9 L MCV 88.1 MCH 29.2 MCHC 33.2 RDW 15.0 H Plt Count 338 Neut % (Auto) Not Reportable Lymph % (Auto) Not Reportable [place] % (Auto) Not Reportable Eos % (Auto) Not Reportable Baso % (Auto) Not Reportable Lymph # (Auto) Not Reportable [place] # (Auto) Not Reportable Baso # (Auto) Not Reportable Total Counted 100 Seg Neutrophils % 82.0 H Band Neutrophils % 7.0 Lymphocytes % (Manual) 4.0 L Monocytes % (Manual) 6.0 Metamyelocytes % 1.0 H Neutrophils # (Manual) 37706 H RBC Morphology Normal morphology Sodium 126 L Potassium 3.3 L Chloride 97 L Carbon Dioxide 27 BUN 13 Creatinine 0.42 L Estimated GFR > 60 BUN/Creatinine Ratio 31.0 H Glucose 111 H Calcium 7.4 L Total Bilirubin 0.8 AST 33 ALT 19 Alkaline Phosphatase 123 Total Protein 5.5 L Albumin 2.7 L Globulin 2.8 Albumin/Globulin Ratio 1.0 PFSH Medical History History of COVID-19 (05/2024) Hiatal hernia Serum sodium decreased Encounter for subsequent annual wellness visit (AWV) in Medicare patient Vision disorder Rosacea Shoulder pain (~2014) Foot pain Measles Chicken pox (~1949) Hearing loss (~2021) Cataracts, bilateral (~2014) History of urinary incontinence Neutropenia 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 Allergic rhinitis Osteoarthritis (~1997) Obstructive sleep apnea of adult Primary insomnia Lichen sclerosus et atrophicus Vitamin D deficiency Chronic cough Osteopenia HTN (hypertension) (~2009) Hyperlipidemia Surgical History 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) Hx of LASIK Anesthesia History of hand surgery (~2022) History of breast mammoplasty S/P foot surgery, right S/P UVPP (uvulopalatopharyngoplasty) Hx of bilateral breast reduction surgery S/P trigger finger release History of facelift Hx of bladder repair surgery Hx of partial thyroidectomy Hx of partial thyroidectomy Family History Mother Heart attack Brother History of heart disease Social History household members: none occupational status: previously employed Smoking Status: Never smoker alcohol intake: current substance use type: does not use Assessment & Plan Post-op Postoperative Procedures: Procedures Operation Date: 12/03/24 22:15 Actual Procedure Side Surgeon p Hernia Repair - Inguinal, small bowel resection Right Fuad Singh MD Postoperative day: 5 Postoperative status: doing well Postoperative status narrative: Soft diet. Activity as tolerated Postoperative plan: ambulate and advance diet Time Spent With Patient Time with patient: less than 15 minutes
--- NOTE | 2024-12-08 12:24 | CM.DPC ---
DCP Continued: Reviewed EMR and team rounds for pt?s medical status. Per hospitalist, SNF is still the recommended dc plan. PASRR completed by this VEHICLE MODIFICATION TECHNICIAN, PASRR negative and with facesheet. [facility] still tracking for a Wednesday, 12/11, transport time TBD the day prior to dc. Plan: Anticipating [facility] dc on Wednesday, 12/11, transport time still pending. CM Team will continue to follow for coordination of discharge plans. FRANCISCO Rees
--- NOTE | 2024-12-08 13:00 | DIET.PN1 ---
Dietary Progress Note Assessment: Diet advanced to soft, low fiber. Will monitor tolerance to diet and continue ONS BID Ht: 149.86 cm Wt: 68.039 kg BMI: 30.2 UBW: Last BM: 11/29/24 (12/03/24 21:00) MNA: 10 Avinash Score: 18 Diet: 12/05/24 Dinner Clear Liquid Diet Diet Modifications: 12/08/24 Dinner Soft,Low Fiber (Low residue) Diet Diet Modifications: Food Texture: Level 7 - Regular Liquid Consistency: Level 0 - Thin Nutrition Percent Meal Consumed 50% 12/07/24 19:17 Percent Meal Consumed 30 12/07/24 18:00 Labs: RBC 3.17 X10^6/uL (4.0-5.2) L 12/08/24 04:30 Hgb 9.3 g/dL (12.0-16.0) L 12/08/24 04:30 Hct 27.9 % (36-46) L 12/08/24 04:30 Creatinine 0.42 mg/dL (0.52-1.04) L 12/08/24 04:30 Lactate 1.4 mmol/L (0.7-2.1) 12/03/24 17:50 NT-Pro-B Natriuret Pep 379 pg/mL (<450) 12/06/24 07:02 Electronically Signed by: Jocelyn Hinds 12/08/24 13:00 Clinical Dietitian [address] [address]
--- NOTE | 2024-12-08 14:47 | OT.IP.TRT ---
Current Diagnoses Hypo-osmolality and hyponatremia (12/03/24) Unilateral inguinal hernia, with obstruction, without gangrene, not specified as recurrent (12/03/24) Complete intestinal obstruction, unspecified as to cause (12/03/24) Surgery Performed Operation Date: 12/03/24 22:15 Actual Procedures p Hernia Repair - Inguinal, small bowel resection(Right) - Fuad Singh MD Occupational Therapy Treatment Note M2 OT-IP Current Condition Start: 12/04/24 14:19 Freq: Status: Active Protocol: Document 12/04/24 14:19 CGR (Rec: 12/04/24 15:01 R [id number]) Occupational Therapy Current Condition Current Condition Evaluation Date 12/04/24 Treatment Diagnosis incarcerated inguinal hernia, 12/03 small bowel resection Diagnosis Onset Date 12/03/24 M3 OT- IP Subjective and Pain Start: 12/04/24 14:19 Freq: Status: Active Protocol: Document 12/08/24 14:47 [facility] (Rec: 12/08/24 15:34 [facility] [id number]) OT- Subjective Occupational Therapy Visit Type Type Treatment Note Visit Start Time 14:03 Visit Stop Time 14:47 Occupational Therapy Visit Comments Patient Comments Pt wanting to wash her hair at the sink. Patient/Caregiver Goals TO get better. OT Pain Assessment Pain When Pain Assessed During Mobility Pain Present Pain Present Pain Reported M4 OT- IP ADL's Start: 12/04/24 14:19 Freq: Status: Active Protocol: Document 12/08/24 14:47 [facility] (Rec: 12/08/24 15:34 [facility] [id number]) OT [id number] Comments OT Self-Feeding Comments Pt states able to eat egg salad sandwich today. OT ADL-Grooming General Evaluation Grooming Ability Standby Assistance Areas Needing Assistance Combing/Brushing Hair,Face Washing Comments OT Grooming Comments Pt able to stand at the sink for 20 mins to get her hair washed, and to wash her face and comb her hair. M5 OT- IP IADL's Start: 12/04/24 14:19 Freq: Status: Active Protocol: Document 12/04/24 14:19 CGR (Rec: 12/04/24 15:01 R [id number]) OT-Instrumental Activities of Daily Living Deficits IADL Deficits Identified No Deficits Home Safety Awareness Awareness of Need for Assistance at Home Good Awareness Ability to Problem Solve Emergency Able to Problem Solve Situations Medication Management Medication Management No Deficits Identified Money Management Money Management No Deficits Identified Meal Preparation Meal Preparation No Deficits Identified Aquatic Habitat Biologist Aquatic Habitat Biologist No Deficits Identified Driving Driving Comments Pt is an active driver wheelchair. M6 OT- IP Functional Cognition Start: 12/04/24 14:19 Freq: Status: Active Protocol: Document 12/08/24 14:47 [facility] (Rec: 12/08/24 15:34 [facility] [id number]) Cognitive Factors Limiting Selfcare Function Cognitive Ability Level of Alertness Alert Patient Orientation Name,Age,Birthday,Month,Date, Year,Day of Week,Place, Situation Attention Span Ability Capable of Focused Attention, Capable of Sustained Attention Cognitive Comments Cognitive Assessment Comments Pt has good awareness for safety and energy conservation for ADL needs today. M7 OT- IP Mobility and Balance Start: 12/04/24 14:19 Freq: Status: Active Protocol: Document 12/08/24 14:47 [facility] (Rec: 12/08/24 15:34 [facility] [id number]) OT-Transfer Assessment Sit to and From Stand Sit to and from Stand Contact Guard Assistance Transfers Transfer Ability Contact Guard Assistance Technique Transfer Destination Chair Transfer Technique Stand Step Pivot Devices Transfer Assistive Devices Gait Belt,Front Wheeled Walker Comments Mobility Comments Pt able to walk to and from the sink and stand at the sink for 20 min for ADL needs while holding onto the FWW and counter. OT- Balance Assessment Sitting Balance and Reactions Static Sitting Balance Ability Good Dynamic Sitting Balance Ability Good Standing Balance and Reactions Static Standing Balance Ability Good Dynamic Standing Balance Ability Fair M8 OT- IP Objective Assessments Start: 12/04/24 14:19 Freq: Status: Active Protocol: Document 12/04/24 14:19 CGR (Rec: 12/04/24 15:01 CGR [id number]) OT Gross Range of Motion Upper Extremity Range of Motion Assessment Within Functional Limits OT Strength Upper Extremity Strength Assessment Within Functional Limits Comments Strength Comments grossly 4/5 OT- Coordination Assessment Upper Extremity Finger to Nose Test Within Functional Limits Finger Tapping Test Within Functional Limits OT-Muscle Tone Assessment Muscle Tone WNL Yes OT Sensation Assessment Edema Edema Absent M9 OT- IP Assessment and Plan Start: 12/04/24 14:19 Freq: Status: Active Protocol: Document 12/08/24 14:47 [facility] (Rec: 12/08/24 15:34 [facility] [id number]) OT Summary Assessment and Plan Potential Rehabilitation Potential Good Analytic Complexity at Evaluation Moderate Summary OT Impairments Pain,Strength,Balance, Functional Mobility,Grooming, Dressing,Toileting,Bathing, Toilet Transfers,Shower Transfers,Activity Tolerance Progress Towards Goals Progressing Toward Goals,Slow Progress due to Medical Issues Assessment Summary Pt able to stand for 20 minutes today for grooming and hair washing at the sink. Pt still having to move slowly and will greatly benefit from skilled rehab prior to going home. Goals Grooming Goal Independent Dressing Goal Independent Toileting Goal Independent Bathing Goal Independent Toilet Transfer Goal Independent Shower Transfer Goal Independent Days to Meet Goals 19 Frequency of Treatment Other frequency 5x a week Treatment Plan OT Treatment Plan ADL Training,Functional Mobility,Patient/Family Education,Discharge Planning Other Treatment Recommendations and Next ADLs at sink, LB dressing Treatment Focus after abdominal sx, shower if ok Discharge Recommendations OT Discharge Recommendations SNF Rehab Transportation Needs at Discharge Private Vehicle,Wheelchair/ Cabulance
--- NOTE | 2024-12-08 15:46 | PC.NURSE ---
4932--Dr Singh here to see pt; INDU drain removed; pt tolerated well; diet advanced; pt up in chair; has been ambulating in jasso w/ FWW
--- NOTE | 2024-12-08 16:55 | PC.NURSE ---
1650--Pt transferred to room 218 via chair; report given to Oscar LANCASTER; all belongings sent w/ pt
[2024-12-08] MEDS: POTASSIUM CHLORIDE 20 MEQ TAB PO (17:54)
[2024-12-08] MEDS: MAGNESIUM HYDROXIDE 30 ML UDC PO (20:56)
[2024-12-08] MEDS: ATORVASTATIN 20 MG TABLET 10 MG PO (20:57)
[2024-12-08] MEDS: lisinopriL 10 MG TABLET PO (20:58)
[2024-12-09] VITALS: BP 142/70; PULSE 83; RESP 16; TEMP 35.8; O2SAT 95
[2024-12-09] MEDS: PIPERACILLIN/TAZO 3.375 GM in SODIUM CHLORIDE 0.9% 100 ML IV ×3 (01:06→16:50)
[2024-12-09] MEDS: HEPARIN 5,000 UNIT/ML VIAL 5000 UNIT SUBCUT ×3 (05:36→20:14)
[2024-12-09] MEDS: LEVOTHYROXINE 100 MCG TABLET PO (05:36)
[2024-12-09 06:00] VITALS: BP 146/70; PULSE 79; RESP 18; TEMP 36.3; O2SAT 92
[2024-12-09 06:06] LABS: Hematocrit 27.8 % (36-46); Hemoglobin 9.2 g/dL (12.0-16.0); Mean Corpuscular HGB Conc 33.3 % (30-36); Mean Corpuscular Hemoglobin 29.1 PG (26-34); Mean Corpuscular Volume 87.4 fL (80-100); Platelet Count 362 X10^3/uL (150-400); Red Blood Cell Count 3.18 X10^6/uL (4.0-5.2); Red Cell Distribution Width 15.1 % (11.6-14.8); White Blood Cell Count 10.5 X10^3/uL (4.5-11.0)
[2024-12-09 06:09] LABS: Add Manual Diff / Slide Review YES
[2024-12-09 06:12] LABS: BUN Creatinine Ratio 21.7 (6-22); Blood Urea Nitrogen 10 mg/dL (7-17); Calcium 7.1 mg/dL (8.4-10.2); Carbon Dioxide 33 mmol/L (22-32); Chloride 94 mmol/L (98-107); Estimated Glomerular Filt Rate > 60 mL/min (>60); Glucose 108 mg/dL (80-110); HEMOLYSIS < 15 (0-50); Potassium 2.9 mmol/L (3.4-5.1); Sodium 128 mmol/L (137-145)
[2024-12-09 06:28] LABS: Neutrophils Absolute Manual 9345 /uL (3000-5900); RBC Morphology Norm; Total Cells Counted 100
[2024-12-09] MEDS: PANTOPRAZOLE DR 40 MG TABLET PO (06:35)
--- NOTE | 2024-12-09 07:38 | P.PN_ITS ---
Subjective Subjective Date Patient Seen: 12/09/24 Interval history: She is seen today to follow-up her hypokalemia, femoral hernia repair and peripheral edema. She continues to have a Lara catheter and says that she really still needs it and isn't able to get up as often as she would need to not have a catheter. She will be going to the [facility] nursing [facility] for rehab in 2 more days. Her hemoglobin is 9.2 and her potassium is 2.9 today after receiving additional Lasix yesterday. Forty mEq of potassium IV is prescribed. She says that she slept very poorly last night. Exam Vital Signs (past 8 hours): - 12/09/24 00:00 12/09/24 06:00 Temperature 96.5 F L 97.3 F L Pulse Rate 83 79 Respiratory Rate 16 18 Blood Pressure 142/70 H 146/70 H Pulse Oximetry 95 92 Oxygen Flow Rate 0 0 Fraction of Inspired Oxygen 28 SaO2/FiO2 Ratio 328 Oxygen Delivery Method Room Air Oxygen Flow Rate 0 Narrative Exam Narrative: Alert and oriented x3. No apparent distress. Heart is regular rate and rhythm without murmur Lungs have mild wheezing bilaterally There is 1+ pitting ankle edema present. Abdomen is more distended today. There is no tenderness. Bowel sounds are diminished. Lara catheter is still present. Objective Labs 12/09/24 05:30 12/09/24 05:30 Labs: Laboratory Results - last 24 hr 12/09/24 05:30 WBC 10.5 RBC 3.18 L Hgb 9.2 L Hct 27.8 L MCV 87.4 MCH 29.1 MCHC 33.3 RDW 15.1 H Plt Count 362 Neut % (Auto) Not Reportable Lymph % (Auto) Not Reportable [place] % (Auto) Not Reportable Eos % (Auto) Not Reportable Baso % (Auto) Not Reportable Lymph # (Auto) Not Reportable [place] # (Auto) Not Reportable Baso # (Auto) Not Reportable Total Counted 100 Seg Neutrophils % 77.0 H Band Neutrophils % 12.0 H Lymphocytes % (Manual) 5.0 L Monocytes % (Manual) 5.0 Eosinophils % (Manual) 1.0 L Neutrophils # (Manual) 9345 H RBC Morphology Norm Sodium 128 L Potassium 2.9 L Chloride 94 L Carbon Dioxide 33 H BUN 10 Creatinine 0.46 L Estimated GFR > 60 BUN/Creatinine Ratio 21.7 Glucose 108 Calcium 7.1 L [facility] Medical History History of COVID-19 (05/2024) Hiatal hernia Serum sodium decreased Encounter for subsequent annual wellness visit (AWV) in Medicare patient Vision disorder Rosacea Shoulder pain (~2014) Foot pain Measles Chicken pox (~1949) Hearing loss (~2021) Cataracts, bilateral (~2014) History of urinary incontinence Neutropenia 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 Allergic rhinitis Osteoarthritis (~1997) Obstructive sleep apnea of adult Primary insomnia Lichen sclerosus et atrophicus Vitamin D deficiency Chronic cough Osteopenia HTN (hypertension) (~2009) Hyperlipidemia Surgical History 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) Hx of LASIK Anesthesia History of hand surgery (~2022) History of breast mammoplasty S/P foot surgery, right S/P UVPP (uvulopalatopharyngoplasty) Hx of bilateral breast reduction surgery S/P trigger finger release History of facelift Hx of bladder repair surgery Hx of partial thyroidectomy Hx of partial thyroidectomy Family History Mother Heart attack Brother History of heart disease Social History household members: none occupational status: previously employed Smoking Status: Never smoker alcohol intake: current substance use type: does not use Assessment & Plan Assessment & Plan narrative: Incarcerated femoral hernia. S/P Strangulated femoral hernia (Gangrenous small bowel with perforation). Small bowel resection with anastomosis, open repair of right femoral hernia on 12/03/24. -Continue to correct sodium and potassium. -now taking regular diet -Zosyn IV per General surgery Neutropenia. Resolved Respiratory Symptoms -12/09/2024 continues to have peripheral edema -CXR without signs of pneumonia. Cardiomegaly. Development of small left pleural effusion and probable associated left basilar atelectasis. -wheezing without signs of hypoxia. Continues with albuterol. -additional Lasix given on 12/08 ABLA -Postop hgb 9.1, follow. Hypokalemia -Potassium chloride 20 mEq b.i.d. p.o. -40 mEq IV potassium on 12/09/2024 Hyponatremia hypovolemia. Likely from dehydration since patient has severe nausea and vomiting. NS and monitor sodium closely. NA slowly correcting and is currently in the 126-129 range. Hypothyroidism. Resumed home Synthroid. TSH 6.25. HTN. Monitor BP and resumed home medications. Hypomagnesemia -Mg 1.5 on 12/05/24. Supplemented IV X 1 and up to 2.5 on 12/06/24. HLD. Atorvastatin. DVT PPx SCDs and defer chemical PPx to general surgery Code status full code Disposition [facility] in 2 days Time-Based Coding :: [TOTAL MINUTES] spent with patient and on the chart (including review of chart, obtaining history, exam, reviewing outside data, placing orders, documenting exam and treatment plan, and counseling patient) on [DATE].
[2024-12-09] MEDS: POTASSIUM CHLORIDE 20 MEQ TAB PO ×2 (07:54→16:51)
[2024-12-09] MEDS: POTASSIUM CHLORIDE IN WATER 10 MEQ/100 ML PIGGYBACK 100 MEQ IV ×4 (07:54→12:28)
[2024-12-09 08:00] VITALS: BP 162/68; PULSE 84; RESP 18; TEMP 36.2; O2SAT 96
[2024-12-09] MEDS: ASPIRIN EC 81 MG TABLET PO ×2 (08:03→20:09)
[2024-12-09] MEDS: FLUTICASONE 120 SPRAY/16 GM SPRAY.SUSP NASAL ×2 (08:03→20:13)
[2024-12-09] MEDS: MAGNESIUM HYDROXIDE 30 ML UDC PO ×2 (08:03→20:09)
[2024-12-09] MEDS: SODIUM CHLORIDE 0.9% FLUSH 10 ML IV (09:55)
--- NOTE | 2024-12-09 11:04 | CM.DPNOTE ---
DCP note [employer] reviewed EMR Per chart review, pt had a BM this morning. Per provider in morning rounds, should be stable to dc Wednesday to . Per Dede at , able to accept pt Monday 12/11. transport planned for around 11:15-11:30am. [employer] met with pt in room, reviewed plan. pt remains in agreement, frustrated that she was not updated on the plan/told she was approved at prior to now. relieved to know it's been settled. asked about if she could bring her meds from home to to avoid an OOP cost. [employer] referred her to ask about their policy on bringing home meds. P: dc to Monday 12/11. transport around 11:15-11:30. PASRR completed. CM team will continue to follow for coordination of DCP PERLA Linares
--- NOTE | 2024-12-09 15:45 | PT-IP ANOTE ---
checked on pt x 2 and pt refused PT. stated that she has a bad day and just does not have strength to do PT today. pt agreed for PT to checked back again. PT checked back after ~ 2 hours and pt continues to refuse PT. informed pt to ambulate with nursing staff when able later today. pt agreed.
[2024-12-09 16:00] VITALS: BP 153/64; PULSE 100; RESP 17; TEMP 36.7; O2SAT 97
[2024-12-09 20:00] VITALS: BP 142/55; PULSE 92; RESP 20; TEMP 36.8; O2SAT 97
[2024-12-09] MEDS: ATORVASTATIN 20 MG TABLET 10 MG PO (20:06)
[2024-12-09 20:07] VITALS: BP 125/60; PULSE 95
[2024-12-09] MEDS: lisinopriL 10 MG TABLET PO (20:07)
[2024-12-10 01:00] VITALS: BP 143/73; PULSE 86; RESP 18; TEMP 35.8; O2SAT 96
[2024-12-10] MEDS: PIPERACILLIN/TAZO 3.375 GM in SODIUM CHLORIDE 0.9% 100 ML IV (01:44)
[2024-12-10] MEDS: POTASSIUM CHLORIDE 20 MEQ TAB 40 MEQ PO (06:09)
[2024-12-10] MEDS: LEVOTHYROXINE 100 MCG TABLET PO (06:10)
[2024-12-10] MEDS: PANTOPRAZOLE DR 40 MG TABLET PO (06:10)
[2024-12-10] MEDS: HEPARIN 5,000 UNIT/ML VIAL 5000 UNIT SUBCUT ×2 (06:10→14:43)
[2024-12-10 06:38] LABS: BUN Creatinine Ratio 20.9 (6-22); Blood Urea Nitrogen 9 mg/dL (7-17); Calcium 7.3 mg/dL (8.4-10.2); Carbon Dioxide 33 mmol/L (22-32); Chloride 94 mmol/L (98-107); Estimated Glomerular Filt Rate > 60 mL/min (>60); Glucose 109 mg/dL (80-110); HEMOLYSIS < 15 (0-50); Potassium 3.4 mmol/L (3.4-5.1); Sodium 127 mmol/L (137-145)
--- NOTE | 2024-12-10 07:55 | PM.PN.1 ---
Subjective Subjective Date Patient Seen: 12/10/24 Interval history: She is seen today follow-up the hypokalemia, the peripheral edema and the femoral hernia/bowel obstruction surgery recovery. The potassium has risen from 2.9 up to 3.4. The creatinine is 0.43. Her Lara catheter will be removed today. Her IVs have been failing. She is coughing. She has 2+ pedal edema so will be started on oral Lasix. She is already on oral potassium. Exam Vital Signs (past 8 hours): - 12/10/24 01:00 Temperature 96.4 F L Pulse Rate 86 Respiratory Rate 18 Blood Pressure 143/73 H Pulse Oximetry 96 Oxygen Flow Rate 0 Fraction of Inspired Oxygen 28 SaO2/FiO2 Ratio 328 Oxygen Delivery Method Room Air Oxygen Flow Rate 0 Narrative Exam Narrative: Alert and oriented x3. No apparent distress. Heart is regular rate and rhythm without murmur Bibasilar lung crackles heard Extremities have 2+ pitting ankle edema bilaterally Her abdomen is less distended. There is no right groin tenderness. A Lara catheter is present. Objective Labs 12/09/24 05:30 12/10/24 05:10 Labs: Laboratory Results - last 24 hr 12/10/24 05:10 Sodium 127 L Potassium 3.4 Chloride 94 L Carbon Dioxide 33 H BUN 9 Creatinine 0.43 L Estimated GFR > 60 BUN/Creatinine Ratio 20.9 Glucose 109 Calcium 7.3 L [facility] Medical History History of COVID-19 (05/2024) Hiatal hernia Serum sodium decreased Encounter for subsequent annual wellness visit (AWV) in Medicare patient Vision disorder Rosacea Shoulder pain (~2014) Foot pain Measles Chicken pox (~1949) Hearing loss (~2021) Cataracts, bilateral (~2014) History of urinary incontinence Neutropenia 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 Allergic rhinitis Osteoarthritis (~1997) Obstructive sleep apnea of adult Primary insomnia Lichen sclerosus et atrophicus Vitamin D deficiency Chronic cough Osteopenia HTN (hypertension) (~2009) Hyperlipidemia Surgical History 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) Hx of LASIK Anesthesia History of hand surgery (~2022) History of breast mammoplasty S/P foot surgery, right S/P UVPP (uvulopalatopharyngoplasty) Hx of bilateral breast reduction surgery S/P trigger finger release History of facelift Hx of bladder repair surgery Hx of partial thyroidectomy Hx of partial thyroidectomy Family History Mother Heart attack Brother History of heart disease Social History household members: none occupational status: previously employed Smoking Status: Never smoker alcohol intake: current substance use type: does not use Assessment & Plan Assessment & Plan narrative: Incarcerated femoral hernia. S/P Strangulated femoral hernia (Gangrenous small bowel with perforation). Small bowel resection with anastomosis, open repair of right femoral hernia on 12/03/24. -Continue to correct sodium and potassium. -now taking regular diet -Zosyn IV per General surgery, changed to Cipro on 12/10 due to IV failures. Neutropenia. Resolved Respiratory Symptoms -12/09/2024 continues to have peripheral edema -CXR without signs of pneumonia. Cardiomegaly. Development of small left pleural effusion and probable associated left basilar atelectasis. -wheezing without signs of hypoxia. Continues with albuterol. -additional Lasix given on 12/08, regular oral Lasix started on 12/10. ABLA -Postop hgb 9.1, follow. Hypokalemia -Potassium chloride 20 mEq b.i.d. p.o. -40 mEq IV potassium on 12/09/2024 Hyponatremia hypovolemia. Likely from dehydration since patient has severe nausea and vomiting. NS and monitor sodium closely. NA slowly correcting and is currently in the 126-129 range. Hypothyroidism. Resumed home Synthroid. TSH 6.25. HTN. Monitor BP and resumed home medications. Hypomagnesemia -Mg 1.5 on 12/05/24. Supplemented IV X 1 and up to 2.5 on 12/06/24. HLD. Atorvastatin. DVT PPx SCDs and defer chemical PPx to general surgery Code status full code Disposition [facility] in 1 day Time-Based Coding :: [TOTAL MINUTES] spent with patient and on the chart (including review of chart, obtaining history, exam, reviewing outside data, placing orders, documenting exam and treatment plan, and counseling patient) on [DATE].
[2024-12-10] MEDS: ASPIRIN EC 81 MG TABLET PO (08:37)
[2024-12-10] MEDS: FLUTICASONE 120 SPRAY/16 GM SPRAY.SUSP NASAL (08:39)
[2024-12-10 08:46] VITALS: BP 144/75; PULSE 87; RESP 19; TEMP 36.1; O2SAT 97
[2024-12-10] MEDS: FUROSEMIDE 40 MG TABLET PO ×2 (09:22→16:46)
[2024-12-10] MEDS: CIPROFLOXACIN 250 MG TABLET 500 MG PO (09:22)
--- NOTE | 2024-12-10 12:40 | PT-IP ANOTE ---
Pt refuses PT again this AM due to recent ambulation in her room w/ nursing staff. Reports she is too tired to participate. Will check on pt tomorrow.
--- NOTE | 2024-12-10 16:26 | PC.NURSE ---
1625: Notified Dr. Singh regarding redness and new drainage noted to surgical incision site. Drainage is noted as serous with minimal blood. Will come in to see patient.
[2024-12-10] MEDS: POTASSIUM CHLORIDE 20 MEQ TAB PO (16:46)
--- NOTE | 2024-12-10 16:48 | PM.PNPO.1 ---
Subjective Subjective Date Patient Seen: 12/10/24 Time Patient Seen: 16:48 Interval history: CTSP RE: new redness and drainage from wound. Patient denies fevers, she is ambulating well and her WBC is normal. She has not been showering or being bathed (according to the patient) and is wearing a brief over her incision. Exam Vital Signs (past 8 hours): Fraction of Inspired Oxygen 28 SaO2/FiO2 Ratio 328 Oxygen Delivery Method Room Air Oxygen Flow Rate 0 Narrative Exam Narrative: mild cellulitis over wound, slight opening with serous drainage, no odor --- packed with gauze. 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 Allergic rhinitis Osteoarthritis (~1997) Obstructive sleep apnea of adult Primary insomnia Lichen sclerosus et atrophicus Vitamin D deficiency Chronic cough Osteopenia HTN (hypertension) (~2009) Hyperlipidemia Surgical History 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) Hx of LASIK Anesthesia History of hand surgery (~2022) History of breast mammoplasty S/P foot surgery, right S/P UVPP (uvulopalatopharyngoplasty) Hx of bilateral breast reduction surgery S/P trigger finger release History of facelift Hx of bladder repair surgery Hx of partial thyroidectomy Hx of partial thyroidectomy Family History Mother Heart attack Brother History of heart disease Social History household members: none occupational status: previously employed Smoking Status: Never smoker alcohol intake: current substance use type: does not use Assessment & Plan Post-op Postoperative Procedures: Procedures Operation Date: 12/03/24 22:15 Actual Procedure Side Surgeon p Hernia Repair - Inguinal, small bowel resection Right Fuad Singh MD Postoperative day: 7 Postoperative status narrative: wash wound with mild soap and water daily. Pack open area of wound daily. She is already on Cipro for UTI - flagyl added for fecal coverage given that she is wearing a brief over an open wound. Time Spent With Patient Time with patient: less than 15 minutes
[2024-12-10 16:55] VITALS: BP 129/68; PULSE 102; RESP 20; TEMP 36.4; O2SAT 98
[2024-12-10] MEDS: metroNIDAZOLE 500 MG TABLET PO (17:52)
--- NOTE | 2024-12-10 18:27 | DI.CT.S_ITS ---
PROCEDURE: CT ABDOMEN PELVIS W CON INDICATIONS: incisional wound drainage TECHNIQUE: After the administration of intravenous contrast, axial sections acquired from the lung bases to the pubic symphysis. Coronal and sagittal reformats were performed. For radiation dose reduction, the following was used: automated exposure control, adjustment of mA and/or kV according to patient size. COMPARISON: [facility], CT, CT ABDOMEN PELVIS W CON, 12/03/2024, 18:52. FINDINGS: Image quality: Diagnostic. Lower Chest: Mild right effusion slightly increased compared to prior exam. ABDOMEN: Liver: No solid mass. Gallbladder: No radiopaque gallstones or wall thickening. Biliary ducts: No biliary dilation. Pancreas: No ductal dilation. Spleen: Size is within normal limits. Adrenal Glands: No adrenal nodules. Kidneys and Ureters: No hydronephrosis. No solid mass. No complex renal cystic lesion which requires follow up. Stomach and Bowel: Normal colonic caliber, without significant wall thickening. Prominent hiatal hernia. Peritoneum: Scattered mild abdominal and dependent pelvic fluid. No free air. Ventral Wall: No significant ventral hernia. Abdominal Nodes: No retroperitoneal or mesenteric adenopathy by size criteria. Vessels: Aorta and inferior vena cava are normal in size. PELVIS: Pelvic Organs: Unremarkable. Bladder: No bladder wall thickening, accounting for underdistention. Pelvic Nodes: No enlarged lymph nodes. Miscellaneous: Presumed incisional site is present in the right inguinal region. There are scattered foci air extending from the subcutaneous to the superior aspect of the floor musculature. Several small foci of air are also identified within the pelvis particularly along the right aspect of the bladder. There is amorphous heterogeneous attenuation with air within the inguinal region measuring 4.6 x 4.3 cm. Fat stranding is also present. Bones: No aggressive osseous abnormality. IMPRESSION: Right inguinal postsurgical changes demonstrating subcutaneous air as well as heterogeneous attenuation collection. The latter is suspicious for phlegmon/developing abscess at the surgical site. In addition, several small punctate areas of air are also present in the lower right pelvis extending from the inguinal region toward the bladder. These appear most likely related to recent surgery. Dictated by: Nicole Christopher M.D. on 12/10/2024 at 23:46 Approved by: Nicole Christopher M.D. on 12/10/2024 at 23:53
--- NOTE | 2024-12-10 18:59 | PC.NURSE ---
this nurse called to room, patient reports abd. wound is leaking through breif and gown. This nurse undressed wound to find sero/sang drainage along with some brown colored drainage (which appears to look like stool). This nurse immediately consulted with Dr. Leon to come and take a look at the surgical incision. New orders where placed, Stat labs pending. Per Dr. Leon to notified Dr. Singh and/or noc provider with results. CT scan is pending, patient has to be NPO for 5 hours post food intake.
[2024-12-10 19:00] VITALS: BP 132/71; PULSE 103; RESP 20; TEMP 36.7; O2SAT 96
[2024-12-10 19:09] LABS: Hematocrit 33.5 % (36-46); Hemoglobin 10.8 g/dL (12.0-16.0); Mean Corpuscular HGB Conc 32.3 % (30-36); Mean Corpuscular Hemoglobin 28.4 PG (26-34); Mean Corpuscular Volume 87.7 fL (80-100); Platelet Count 508 X10^3/uL (150-400); Red Blood Cell Count 3.82 X10^6/uL (4.0-5.2); Red Cell Distribution Width 14.9 % (11.6-14.8); White Blood Cell Count 14.8 X10^3/uL (4.5-11.0)
[2024-12-10 19:12] LABS: Add Manual Diff / Slide Review YES
[2024-12-10 19:34] LABS: Prealbumin 7.5 mg/dL (17.6-36.0)
[2024-12-10 19:45] LABS: Neutrophils Absolute Manual 14208 /uL (3000-5900); RBC Morphology Normal Morphology; Total Cells Counted 100; Toxic Granulation Present
[2024-12-10] MEDS: SODIUM CHLORIDE 0.9% 1,000 ML 84 ML IV (20:14)
--- NOTE | 2024-12-10 22:16 | PC.WOUNDPHOT ---
^ right side of abdomen/groin area ^right abdominal incision
--- NOTE | 2024-12-10 23:46 | PM.EVENT ---
Event Note Date Patient Seen: 12/10/24 Time Patient Seen: 23:46 Event Note (Rapid Response, Code, or fall): CT scan reviewed by me. Awaiting radiology report. No free air or significant free fluid to obviate reoperation. Possible RLQ fluid collection, but may be contiguous with incision. No definite high-output fistula, but certainly edema and fluid in the operative area. Continue dressing changes, and may place ostomy bag over wound if output is enough to be measured. On oral cipro/flagyl until cellulitis resolves. PreAlbumin ordered to assess severe protein calorie malnutrition as a result of poor oral intake for the week pre-operative and the days immediately after surgery.
[2024-12-11] MEDS: ATORVASTATIN 20 MG TABLET 10 MG PO ×2 (00:30→20:48)
[2024-12-11] MEDS: ASPIRIN EC 81 MG TABLET PO ×3 (00:30→20:48)
[2024-12-11] MEDS: lisinopriL 10 MG TABLET PO ×2 (00:31→20:51)
[2024-12-11] MEDS: HEPARIN 5,000 UNIT/ML VIAL 5000 UNIT SUBCUT ×4 (00:31→21:09)
[2024-12-11] MEDS: PIPERACILLIN/TAZO 3.375 GM in SODIUM CHLORIDE 0.9% 100 ML IV ×2 (00:32→08:23)
[2024-12-11] MEDS: FLUTICASONE 120 SPRAY/16 GM SPRAY.SUSP NASAL ×3 (01:01→21:04)
[2024-12-11 02:00] VITALS: BP 132/64; PULSE 88; RESP 18; TEMP 37.2; O2SAT 95
--- NOTE | 2024-12-11 05:18 | PC.NURSE ---
Addendum entered by Margoth Ramos R.N. 12/11/24 06:55: wound care done again this am around 0600. wound still draining serosanguinous, no changes noted to wound bed since last night, no pain. Original Note: Pt was started back on IVF tonight as well as IV Antibiotics. Oral antibiotics on hold now per security shift manager MD. dressing to abdominal incision was change and pictures taken and logged in the computer. CT of the abdomen done, pt back on a regular diet.
[2024-12-11] MEDS: LEVOTHYROXINE 100 MCG TABLET PO (05:51)
[2024-12-11] MEDS: PANTOPRAZOLE DR 40 MG TABLET PO (05:51)
[2024-12-11 06:07] LABS: Hematocrit 30.1 % (36-46); Hemoglobin 9.9 g/dL (12.0-16.0); Mean Corpuscular Hemoglobin 28.9 PG (26-34); Mean Corpuscular Volume 87.7 fL (80-100); Platelet Count 439 X10^3/uL (150-400); Red Blood Cell Count 3.43 X10^6/uL (4.0-5.2); Red Cell Distribution Width 15.5 % (11.6-14.8); White Blood Cell Count 12.4 X10^3/uL (4.5-11.0)
[2024-12-11 06:11] LABS: Add Manual Diff / Slide Review YES
[2024-12-11 06:17] LABS: BUN Creatinine Ratio 16.7 (6-22); Blood Urea Nitrogen 9 mg/dL (7-17); Calcium 7.5 mg/dL (8.4-10.2); Carbon Dioxide 32 mmol/L (22-32); Chloride 91 mmol/L (98-107); Estimated Glomerular Filt Rate > 60 mL/min (>60); Glucose 110 mg/dL (80-110); HEMOLYSIS < 15 (0-50); Potassium 3.5 mmol/L (3.4-5.1); Sodium 126 mmol/L (137-145)
[2024-12-11 06:33] LABS: Neutrophils Absolute Manual 11532 /uL (3000-5900); Total Cells Counted 100
[2024-12-11 06:34] LABS: Polychromasia 1+
--- NOTE | 2024-12-11 07:41 | P.PN_ITS ---
Subjective Subjective Interval history: She is seen today to follow-up her right femoral hernia/bowel obstruction surgery, new right femoral incisional abscess, hyponatremia and peripheral edema. Last night the right femoral hernia incision began draining brownish material that has turned to normal color overnight. This appears to have been a small abscess that was present in the incision. The CT scan does not show any other definite intra-abdominal process. He was changed back to IV Zosyn last night. Surgery is also following. The hemoglobin has dropped down to 9.9. The white count yesterday was 14.8 and now is 12.4. The sodium is 126. She has some edema so the IV fluid will be stopped. Exam Vital Signs (past 8 hours): - 12/11/24 02:00 Temperature 98.9 F Pulse Rate 88 Respiratory Rate 18 Blood Pressure 132/64 Pulse Oximetry 95 Oxygen Flow Rate 0 Fraction of Inspired Oxygen 28 SaO2/FiO2 Ratio 328 Oxygen Delivery Method Room Air Oxygen Flow Rate 0 Narrative Exam Narrative: Alert and oriented x3. No apparent distress She is feeling much better than she was last night. The right femoral incision is now draining a yellowish fluid that looks more like a normal wound drainage and the redness around the incision is improved. Heart is regular rate and rhythm without murmur Lungs are clear to auscultation bilaterally Extremities have 2+ pitting bilateral ankle edema Abdomen has some tenderness in the right lower quadrant. Objective Labs 12/11/24 05:40 12/11/24 05:40 Labs: Laboratory Results - last 24 hr 12/10/24 12/11/24 18:50 05:40 WBC 14.8 H 12.4 H RBC 3.82 L 3.43 L Hgb 10.8 L 9.9 L Hct 33.5 L 30.1 L MCV 87.7 87.7 MCH 28.4 28.9 MCHC 32.3 33.0 RDW 14.9 H 15.5 H Plt Count 508 H 439 H Neut % (Auto) Not Reportable Not Reportable Lymph % (Auto) Not Reportable Not Reportable [place] % (Auto) Not Reportable Not Reportable Eos % (Auto) Not Reportable Not Reportable Baso % (Auto) Not Reportable Not Reportable Lymph # (Auto) Not Reportable Not Reportable [place] # (Auto) Not Reportable Not Reportable Baso # (Auto) Not Reportable Not Reportable Total Counted 100 100 Seg Neutrophils % 95.0 H 88.0 H Band Neutrophils % 1.0 L 5.0 Lymphocytes % (Manual) 3.0 L 4.0 L Atypical Lymphs % 1.0 H Monocytes % (Manual) 2.0 Metamyelocytes % 1.0 H Neutrophils # (Manual) 93939 H 97624 H Toxic Granulation Present H RBC Morphology Normal morphology See below Polychromasia 1+ H Sodium 126 L Potassium 3.5 Chloride 91 L Carbon Dioxide 32 BUN 9 Creatinine 0.54 Estimated GFR > 60 BUN/Creatinine Ratio 16.7 Glucose 110 Calcium 7.5 L Prealbumin 7.5 L PFSH Medical History History of COVID-19 (05/2024) Hiatal hernia Serum sodium decreased Encounter for subsequent annual wellness visit (AWV) in Medicare patient Vision disorder Rosacea Shoulder pain (~2014) Foot pain Measles Chicken pox (~1949) Hearing loss (~2021) Cataracts, bilateral (~2014) History of urinary incontinence Neutropenia 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 Allergic rhinitis Osteoarthritis (~1997) Obstructive sleep apnea of adult Primary insomnia Lichen sclerosus et atrophicus Vitamin D deficiency Chronic cough Osteopenia HTN (hypertension) (~2009) Hyperlipidemia Surgical History 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) Hx of LASIK Anesthesia History of hand surgery (~2022) History of breast mammoplasty S/P foot surgery, right S/P UVPP (uvulopalatopharyngoplasty) Hx of bilateral breast reduction surgery S/P trigger finger release History of facelift Hx of bladder repair surgery Hx of partial thyroidectomy Hx of partial thyroidectomy Family History Mother Heart attack Brother History of heart disease Social History household members: none occupational status: previously employed Smoking Status: Never smoker alcohol intake: current substance use type: does not use Assessment & Plan Assessment & Plan narrative: Incarcerated femoral hernia. S/P Strangulated femoral hernia (Gangrenous small bowel with perforation). Small bowel resection with anastomosis, open repair of right femoral hernia on 12/03/24. -Continue to correct sodium and potassium. -now taking regular diet -Zosyn IV per General surgery, changed to Cipro and Flagyl on 12/10 due to IV failures. -right femoral incisional abscess drained spontaneously on 12/10. Culture is pending. Now back on Zosyn. -no evidence of an intra-abdominal infection or fistula on CT scan 12/10 Respiratory Symptoms -12/09/2024 continues to have peripheral edema -CXR without signs of pneumonia. Cardiomegaly. Development of small left pleural effusion and probable associated left basilar atelectasis. -wheezing without signs of hypoxia. Continues with albuterol. -additional Lasix given on 12/08, regular oral Lasix started on 12/10. ABLA -Postop hgb 9.1, follow. -hemoglobin 9.9 on 12/11 Hypokalemia -Potassium chloride 20 mEq b.i.d. p.o. -40 mEq IV potassium on 12/09/2024 Hyponatremia hypovolemia. Likely from dehydration since patient has severe nausea and vomiting. NS and monitor sodium closely. NA slowly correcting and is currently in the 126-129 range. Hypothyroidism. Resumed home Synthroid. TSH 6.25. HTN. Monitor BP and resumed home medications. Hypomagnesemia -Mg 1.5 on 12/05/24. Supplemented IV X 1 and up to 2.5 on 12/06/24. HLD. Atorvastatin. DVT PPx SCDs and defer chemical PPx to general surgery Code status full code Disposition [facility] in 1-2 days Time-Based Coding :: [TOTAL MINUTES] spent with patient and on the chart (including review of chart, obtaining history, exam, reviewing outside data, placing orders, documenting exam and treatment plan, and counseling patient) on [DATE].
[2024-12-11 08:00] VITALS: BP 132/53; PULSE 86; RESP 16; TEMP 37.1; O2SAT 96
[2024-12-11] MEDS: metroNIDAZOLE 500 MG TABLET PO ×3 (08:22→21:00)
[2024-12-11] MEDS: FUROSEMIDE 40 MG TABLET PO ×2 (08:23→16:47)
[2024-12-11] MEDS: MAGNESIUM HYDROXIDE 30 ML UDC PO ×2 (08:23→20:48)
[2024-12-11] MEDS: POTASSIUM CHLORIDE 20 MEQ TAB PO ×2 (08:23→16:47)
--- NOTE | 2024-12-11 11:12 | PT-IP ANOTE ---
Pt pleasantly declines PT stating that she just got to the chair and settled in after a shower this morning. Con't PT efforts at another time.
--- NOTE | 2024-12-11 11:13 | CM.DPC ---
DCP SNF Planning Cont: Per MD, pt with new post surgical site abscess and Surgeon able to drain bedside and no further abscess noted and not quite ready for d/c to SNF yet and likely another 1-2 more days. SW updated [facility] admissions that pt not yet stable for discharge today and they will continue to follow for pt likely discharging in another day or two when stable. PERLA Avalos
--- NOTE | 2024-12-11 11:16 | PC.NURSE ---
Pt up to br to void at 1030 and then in to shower. Wound area cleaned with soap and water per instructions and then new gauze and abd applied to absorb drainage and protect site.
--- NOTE | 2024-12-11 11:58 | OT.IPNOTE ---
Approached pt for OT treatment and pt states already did showering earlier with nursing aid and able to do most of it on her own. Pt ,per aid just needing assist with her back and socks. To check on the pt tomorrow too tired from showering.
[2024-12-11 12:00] VITALS: BP 126/62; PULSE 91; RESP 12; O2SAT 98
--- NOTE | 2024-12-11 12:11 | DIET.PN1 ---
Addendum entered by Jocelyn Hinds 12/11/24 15:35: Pt reports tolerating the Enlive over Original. Will continue. Original Note: Dietary Progress Note Assessment: Met with patient. Pt reporting intake of protein based options at meals. Reporting early satiety. Tolerating Ensure BID. Drinks one throughout the afternoon for lunch. Open to changing Ensure to Ensure Enlive for additional calories and protein. Open to continuing them BID, will work to increase intake of 2nd Ensure provided on dinner tray. Estimating based on ordered food and ONS, pt will be receiving 75% EER for protein. Discussed other food options that would be tolerated to add on to meals. Will monitor for PO intakes and tolerance of different Ensure option. Ht: 149.86 cm Wt: 68.039 kg BMI: 30.2 UBW: 71.214 kg on 10/10/24 (-4.5% loss within 2 months, non-severe) 69.5 kg 1 month ago per pt (-2% weight loss within 1 month, non-severe) Last BM: 12/11/24 (12/11/24 11:12) MNA: 10 Avinash Score: 21 Diet: 12/11/24 Breakfast Soft,Low Fiber (Low residue) Diet Diet Modifications: Food Texture: Level 7 - Regular Liquid Consistency: Level 0 - Thin Nutrition Percent Meal Consumed 50% 12/09/24 18:00 Labs: RBC 3.43 X10^6/uL (4.0-5.2) L 12/11/24 05:40 Hgb 9.9 g/dL (12.0-16.0) L 12/11/24 05:40 Hct 30.1 % (36-46) L 12/11/24 05:40 Creatinine 0.54 mg/dL (0.52-1.04) 12/11/24 05:40 Lactate 1.4 mmol/L (0.7-2.1) 12/03/24 17:50 NT-Pro-B Natriuret Pep 379 pg/mL (<450) 12/06/24 07:02 Electronically Signed by: Jocelyn Hinds 12/11/24 12:11 Clinical Dietitian [address] [id number]
--- NOTE | 2024-12-11 12:47 | PM.PNPO.1 ---
Subjective Subjective Date Patient Seen: 12/11/24 Time Patient Seen: 12:47 Interval history: Patient get up and take a shower today. Dressings are clean and dry without ongoing drainage. Cellulitis has improved. Exam Vital Signs (past 8 hours): - 12/11/24 08:00 12/11/24 12:00 Temperature 98.8 F Pulse Rate 86 91 H Respiratory Rate 16 12 Blood Pressure 132/53 L 126/62 Pulse Oximetry 96 98 Oxygen Flow Rate 0 0 Fraction of Inspired Oxygen 28 SaO2/FiO2 Ratio 328 Oxygen Delivery Method Room Air Oxygen Flow Rate 0 Narrative Exam Narrative: Gen: NAD, sitting comfortably in bed, appears well HEENT: Sclera are anicteric, head is normocephalic and atraumatic, trachea is midline. CV: RRR, no JVD Resp: clear to auscultation bilaterally, equal chest wall movement bilaterally Abd: soft, nontender, normoactive bowel sounds. Incision is clean and dry. Dressing is in place. No cellulitis. Ext: no edema, full range of motion Neuro: Cranial nerves II-XII grossly intact, no focal deficits Skin: No erythema or ecchymosis Objective Labs 12/11/24 05:40 12/11/24 05:40 Labs: Laboratory Results - last 24 hr 12/10/24 12/11/24 18:50 05:40 WBC 14.8 H 12.4 H RBC 3.82 L 3.43 L Hgb 10.8 L 9.9 L Hct 33.5 L 30.1 L MCV 87.7 87.7 MCH 28.4 28.9 MCHC 32.3 33.0 RDW 14.9 H 15.5 H Plt Count 508 H 439 H Neut % (Auto) Not Reportable Not Reportable Lymph % (Auto) Not Reportable Not Reportable [place] % (Auto) Not Reportable Not Reportable Eos % (Auto) Not Reportable Not Reportable Baso % (Auto) Not Reportable Not Reportable Lymph # (Auto) Not Reportable Not Reportable [place] # (Auto) Not Reportable Not Reportable Baso # (Auto) Not Reportable Not Reportable Total Counted 100 100 Seg Neutrophils % 95.0 H 88.0 H Band Neutrophils % 1.0 L 5.0 Lymphocytes % (Manual) 3.0 L 4.0 L Atypical Lymphs % 1.0 H Monocytes % (Manual) 2.0 Metamyelocytes % 1.0 H Neutrophils # (Manual) 05841 H 27452 H Toxic Granulation Present H RBC Morphology Normal morphology See below Polychromasia 1+ H Sodium 126 L Potassium 3.5 Chloride 91 L Carbon Dioxide 32 BUN 9 Creatinine 0.54 Estimated GFR > 60 BUN/Creatinine Ratio 16.7 Glucose 110 Calcium 7.5 L Prealbumin 7.5 L PFSH Medical History History of COVID-19 (05/2024) Hiatal hernia Serum sodium decreased Encounter for subsequent annual wellness visit (AWV) in Medicare patient Vision disorder Rosacea Shoulder pain (~2014) Foot pain Measles Chicken pox (~1949) Hearing loss (~2021) Cataracts, bilateral (~2014) History of urinary incontinence Neutropenia 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 Allergic rhinitis Osteoarthritis (~1997) Obstructive sleep apnea of adult Primary insomnia Lichen sclerosus et atrophicus Vitamin D deficiency Chronic cough Osteopenia HTN (hypertension) (~2009) Hyperlipidemia Surgical History 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) Hx of LASIK Anesthesia History of hand surgery (~2022) History of breast mammoplasty S/P foot surgery, right S/P UVPP (uvulopalatopharyngoplasty) Hx of bilateral breast reduction surgery S/P trigger finger release History of facelift Hx of bladder repair surgery Hx of partial thyroidectomy Hx of partial thyroidectomy Family History Mother Heart attack Brother History of heart disease Social History household members: none occupational status: previously employed Smoking Status: Never smoker alcohol intake: current substance use type: does not use Assessment & Plan Post-op Postoperative Procedures: Procedures Operation Date: 12/03/24 22:15 Actual Procedure Side Surgeon p Hernia Repair - Inguinal, small bowel resection Right Fuad Singh MD Postoperative day: 8 Postoperative status narrative: Expression of fluid yesterday seems to have resolved cellulitis. May take 5 days of oral Cipro Flagyl. Patient's pre albumin was low, combined with poor oral intake for the week prior to presentation are consistent with severe protein calorie malnutrition. Discussed with patient need for protein supplementation with a goal of extra 60 g of protein shakes per day. Time Spent With Patient Time with patient: less than 15 minutes
--- NOTE | 2024-12-11 14:21 | PT.IPTN ---
Current Diagnoses Hypo-osmolality and hyponatremia (12/03/24) Unilateral inguinal hernia, with obstruction, without gangrene, not specified as recurrent (12/03/24) Complete intestinal obstruction, unspecified as to cause (12/03/24) Surgery Performed Operation Date: 12/03/24 22:15 Actual Procedures p Hernia Repair - Inguinal, small bowel resection(Right) - Fuad Singh MD Physical Therapy Treatment Note M2 PT-IP Current Condition Start: 12/04/24 11:12 Freq: NEEDED Status: Active Protocol: Document 12/04/24 11:44 MB (Rec: 12/04/24 12:36 MB [id number]) Physical Therapy Current Condition Current Condition Evaluation Date 12/04/24 Treatment Diagnosis Small bowel resection, hernia repair, has drain and catheter M3 PT-IP Subjective Start: 12/04/24 11:12 Freq: NEEDED Status: Active Protocol: Document 12/11/24 13:45 MB (Rec: 12/11/24 14:21 MB [id number]) Subjective Physical Therapy Visit Type Type Treatment Note Visit Start Time 13:45 Visit Stop Time 14:10 Number of SEO EXPERT Visits 0 Physical Therapy Visit Comments Patient Comments Pt is agreeable to PT, asks to use BR M4 PT-IP Mobility and Gait Start: 12/04/24 11:12 Freq: NEEDED Status: Active Protocol: Document 12/11/24 13:45 MB (Rec: 12/11/24 14:21 MB [id number]) PT-Transfer Assessment Sit to and From Stand Sit to and from Stand Standby Assistance Equipment Transfer Assistive Device Gait Belt,Front Wheeled Walker Orthotic/Prosthetic Devices or Brace: No Transfers Transfer Destination Chair,Toilet Transfer Technique Ambulation Transfer Ability Level of Assist Standby Assistance,1 Person Assistance,Use of Upper Extremities Comments Mobility Comments Slow mobility and PT manages IV pole. Pt asks PT to give her a hand to allow pt to pull up and PT cues pt to push up from the chair with both hands and she is able to do this. See OT notes for assistance with toileting, max A to doff brief that has draining from right abdominal wound on it and nsg to arrive to redress as able. Gait Assessment Gait Gait Assistance Required: Standby Assistance,1 Person Assist Distance (Feet) 40 Assistive Devices Assistive Device Gait Belt,Front Wheeled Walker Orthotic/Prosthetic Devices or Brace: No Gait Deviations General Gait Pattern Decreased Stride Length, Decreased Feet Clearance, Flexed Trunk Factors Limiting Gait Function Factors Limiting Gait Function Decreased Activity Tolerance Comments Gait Comments 40'x1, 15'x1, 25'x1 with RW and SBA and PT manages IV pole . Pt is very slow with all ADL tasks toileting, washing hands, brushing teeth PT-Balance Assessment Sitting Balance and Reactions Static Sitting Balance Ability Good Dynamic Sitting Balance Ability Good Standing Balance and Reactions Static Standing Balance Ability Good Dynamic Standing Balance Ability Good Device Used RW M5 PT-IP Objective Assessments Start: 12/04/24 11:12 Freq: NEEDED Status: Active Protocol: Document 12/04/24 11:44 MB (Rec: 12/04/24 12:36 MB [id number]) Orientation Orientation/Cognition Level of Alertness Alert Orientation Name,Age,Birthday,Month,Date, Year,Day of Week,Place, Situation Language Function Ability No Deficits Noted Safety Awareness Understands Safety Issues Memory Description No Deficits Noted Gross Range of Motion Upper Extremity ROM Impairments Defer to OT Lower Extremity ROM Assessment Within Functional Limits Impairments Recent LTKR and scar healing well and good function in leg today Strength Lower Extremity Strength Assessment Within Functional Limits Coordination Assessment Assessment Coordination Comments NT Sensation Assessment Comments Sensation Comments NT Muscle Tone Muscle Tone WNL Yes M6 PT-IP Treatment Start: 12/04/24 11:12 Freq: NEEDED Status: Active Protocol: Document 12/08/24 10:55 AB (Rec: 12/08/24 13:03 AB [id number]) Physical Therapy Treatment Education Education Provided Safety M7 PT-IP Assessment and Plan Start: 12/04/24 11:12 Freq: NEEDED Status: Active Protocol: Document 12/11/24 13:45 MB (Rec: 12/11/24 14:21 MB [id number]) PT Summary Assessment and Plan Potential Rehabilitation Potential Good Status of Condition at Evaluation Evolving Summary Impairments Pain,ROM,Strength,Balance, Coordination,Bed Mobility, Transfers,Gait,Activity Tolerance Progress Towards Goals Progressing Toward Goals Assessment Summary Pt with purulent drainage from right abdominal wound today onto brief. She gait trains well and requires cues and encouragement to transfer herself, pushing up from the chair. She is improving with activity tolerance and functional I. PT is concerned about wound drainage today. Goals Bed Mobility Goal Independent Transfer Goal Independent,Front Wheeled Walker Gait Goal Independent,Front Wheel Walker Gait Distance 150 Other Goals Pt will ascend and descend 1 low step with LRAD and no more than CGA to allow safe home entrance. Days to Meet Goals 5 Frequency of Treatment Frequency Of Treatment Once a Day Treatment Plan Physical Therapy Treatment Plan Bed Mobility Training,Transfer Training,Gait Training, Therapeutic Exercise,Balance Retraining,Post Op Education, Discharge Planning,Hot or Cold Pack,Neuromuscular Re-ed, Coordination Retraining,Manual Therapy Precautions Abdominal Surgery Precautions Log Roll,Lifting Restrictions, Gait Belt above Incisional Area Recommendations To Nursing Amount of Assist Needed 1 Person Assist Discharge Recommendations PT Discharge Recommendations SNF Rehab Transportation Needs at Discharge Private Vehicle,Wheelchair/ Cabulance
--- NOTE | 2024-12-11 14:25 | OT.IP.TRT ---
Current Diagnoses Hypo-osmolality and hyponatremia (12/03/24) Unilateral inguinal hernia, with obstruction, without gangrene, not specified as recurrent (12/03/24) Complete intestinal obstruction, unspecified as to cause (12/03/24) Surgery Performed Operation Date: 12/03/24 22:15 Actual Procedures p Hernia Repair - Inguinal, small bowel resection(Right) - Fuad Singh MD Occupational Therapy Treatment Note M2 OT-IP Current Condition Start: 12/04/24 14:19 Freq: Status: Active Protocol: Document 12/04/24 14:19 CGR (Rec: 12/04/24 15:01 CGR [id number]) Occupational Therapy Current Condition Current Condition Evaluation Date 12/04/24 Treatment Diagnosis incarcerated inguinal hernia, 12/03 small bowel resection Diagnosis Onset Date 12/03/24 M3 OT- IP Subjective and Pain Start: 12/04/24 14:19 Freq: Status: Active Protocol: Document 12/11/24 14:26 [facility] (Rec: 12/11/24 14:32 [facility] [id number]) OT- Subjective Occupational Therapy Visit Type Type Treatment Note Visit Start Time 13:55 Visit Stop Time 14:25 Occupational Therapy Visit Comments Patient Comments Pt wanting to use the bathroom and do oral care needs. Patient/Caregiver Goals TO get better. OT Pain Assessment Pain When Pain Assessed During Mobility Pain Present Pain Present Pain Reported Location abdomen Pain Behaviors Facial Grimacing M4 OT- IP ADL's Start: 12/04/24 14:19 Freq: Status: Active Protocol: Document 12/11/24 14:26 [facility] (Rec: 12/11/24 14:32 [facility] [id number]) OT ADL-Grooming General Evaluation Grooming Ability Standby Assistance OT ADL-Oral Care General Eval Oral Care Ability Independent Comments Oral Care Comments WHile standing at the sink. OT ADL-Dressing General Eval Lower Body Dressing Ability Moderate Assistance Comments OT Dressing Comments Asssit to yulia brief over her left LE. OT ADL-Toileting General Evaluation Toileting Ability Moderate Assistance Areas Needing Assistance Manage Clothing,Perform Perineal Hygiene Comments OT Toileting Comments Assist to wipe for completeness and help bet brief over her feet initially. Pt tends to wipe from the front but careful no to pull forwards. Re-suggested pt get a bidet or use of toilet paper aid. OT ADL-Bathing Comments OT Bathing Comments Pt states showered earlier with nursing. M5 OT- IP IADL's Start: 12/04/24 14:19 Freq: Status: Active Protocol: Document 12/04/24 14:19 CGR (Rec: 12/04/24 15:01 CGR [id number]) OT-Instrumental Activities of Daily Living Deficits IADL Deficits Identified No Deficits Home Safety Awareness Awareness of Need for Assistance at Home Good Awareness Ability to Problem Solve Emergency Able to Problem Solve Situations Medication Management Medication Management No Deficits Identified Money Management Money Management No Deficits Identified Meal Preparation Meal Preparation No Deficits Identified Kraft Digester Operator Kraft Digester Operator No Deficits Identified Driving Driving Comments 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 M6 OT- IP Functional Cognition Start: 12/04/24 14:19 Freq: Status: Active Protocol: Document 12/08/24 14:47 [facility] (Rec: 12/08/24 15:34 [facility] [id number]) Cognitive Factors Limiting Selfcare Function Cognitive Ability Level of Alertness Alert Patient Orientation Name,Age,Birthday,Month,Date, Year,Day of Week,Place, Situation Attention Span Ability Capable of Focused Attention, Capable of Sustained Attention Cognitive Comments Cognitive Assessment Comments Pt has good awareness for safety and energy conservation for ADL needs today. M7 OT- IP Mobility and Balance Start: 12/04/24 14:19 Freq: Status: Active Protocol: Document 12/11/24 14:26 [facility] (Rec: 12/11/24 14:32 [facility] [id number]) OT-Transfer Assessment Sit to and From Stand Sit to and from Stand Standby Assistance Transfers Transfer Ability Standby Assistance,Contact Guard Assistance Technique Transfer Destination Chair,Toilet Transfer Technique Stand Step Pivot Devices Transfer Assistive Devices Gait Belt,Front Wheeled Walker Comments Mobility Comments Pt CGA to stand and sit back to the recliner for safety. Once on her feet SBA with FWW. OT- Balance Assessment Sitting Balance and Reactions Static Sitting Balance Ability Good Dynamic Sitting Balance Ability Good Standing Balance and Reactions Static Standing Balance Ability Good Dynamic Standing Balance Ability Fair M8 OT- IP Objective Assessments Start: 12/04/24 14:19 Freq: Status: Active Protocol: Document 12/04/24 14:19 CGR (Rec: 12/04/24 15:01 CGR [id number]) OT Gross Range of Motion Upper Extremity Range of Motion Assessment Within Functional Limits OT Strength Upper Extremity Strength Assessment Within Functional Limits Comments Strength Comments grossly 4/5 OT- Coordination Assessment Upper Extremity Finger to Nose Test Within Functional Limits Finger Tapping Test Within Functional Limits OT-Muscle Tone Assessment Muscle Tone WNL Yes OT Sensation Assessment Edema Edema Absent M9 OT- IP Assessment and Plan Start: 12/04/24 14:19 Freq: Status: Active Protocol: Document 12/11/24 14:26 [facility] (Rec: 12/11/24 14:32 [facility] [id number]) OT Summary Assessment and Plan Potential Rehabilitation Potential Good Analytic Complexity at Evaluation Moderate Summary OT Impairments Pain,Strength,Balance, Functional Mobility,Grooming, Dressing,Toileting,Bathing, Toilet Transfers,Shower Transfers,Activity Tolerance Progress Towards Goals Progressing Toward Goals,Slow Progress due to Medical Issues Assessment Summary Pt able to tolerate showering in AM with nursing and oral care and toileting this PM. Pt doing better overall. Pt still having medical issues. Pt to go to skilled rehab. Goals Grooming Goal Independent Dressing Goal Independent Toileting Goal Independent Bathing Goal Independent Toilet Transfer Goal Independent Shower Transfer Goal Independent Days to Meet Goals 15 Frequency of Treatment Other frequency 5x a week Treatment Plan OT Treatment Plan ADL Training,Functional Mobility,Patient/Family Education,Discharge Planning Discharge Recommendations OT Discharge Recommendations SNF Rehab Transportation Needs at Discharge Private Vehicle,Wheelchair/ Cabulance
[2024-12-11 17:00] VITALS: BP 132/87; PULSE 66; RESP 12; TEMP 36.6; O2SAT 100
[2024-12-11 19:00] VITALS: BP 123/67; PULSE 95; RESP 20; TEMP 36.7; O2SAT 95
[2024-12-11 20:51] VITALS: BP 132/87; PULSE 66
[2024-12-11] MEDS: CIPROFLOXACIN 250 MG TABLET 500 MG PO (20:51)
[2024-12-11] MEDS: SODIUM CHLORIDE 0.9% FLUSH 10 ML IV (21:09)
[2024-12-12 06:14] LABS: BUN Creatinine Ratio 23.1 (6-22); Blood Urea Nitrogen 12 mg/dL (7-17); Calcium 7.4 mg/dL (8.4-10.2); Carbon Dioxide 32 mmol/L (22-32); Chloride 91 mmol/L (98-107); Estimated Glomerular Filt Rate > 60 mL/min (>60); Glucose 104 mg/dL (80-110); HEMOLYSIS < 15 (0-50); Potassium 3.8 mmol/L (3.4-5.1); Sodium 125 mmol/L (137-145)
[2024-12-12 06:16] LABS: Hematocrit 26.4 % (36-46); Hemoglobin 8.9 g/dL (12.0-16.0); Mean Corpuscular HGB Conc 33.8 % (30-36); Mean Corpuscular Hemoglobin 29.5 PG (26-34); Mean Corpuscular Volume 87.2 fL (80-100); Platelet Count 456 X10^3/uL (150-400); Red Blood Cell Count 3.03 X10^6/uL (4.0-5.2); Red Cell Distribution Width 15.2 % (11.6-14.8)
[2024-12-12 06:20] LABS: Add Manual Diff / Slide Review YES
[2024-12-12] MEDS: PANTOPRAZOLE DR 40 MG TABLET PO (06:29)
[2024-12-12] MEDS: LEVOTHYROXINE 100 MCG TABLET PO (06:29)
[2024-12-12] MEDS: CIPROFLOXACIN 250 MG TABLET 500 MG PO ×2 (06:29→22:04)
[2024-12-12] MEDS: HEPARIN 5,000 UNIT/ML VIAL 5000 UNIT SUBCUT ×3 (06:30→22:02)
[2024-12-12 06:34] LABS: Neutrophils Absolute Manual 9570 /uL (3000-5900); Total Cells Counted 100
[2024-12-12 06:35] LABS: RBC Morphology Normal Morphology
[2024-12-12 07:00] VITALS: BP 148/69; PULSE 88; RESP 17; TEMP 36.1; O2SAT 98
--- NOTE | 2024-12-12 07:48 | P.PN_ITS ---
Subjective Subjective Date Patient Seen: 12/12/24 Interval history: She is seen today to follow-up the right groin wound infection/cellulitis and her progressive anemia. The wound culture is growing mixed skin chiara. She continues on Cipro/Flagyl by mouth. The hemoglobin has dropped steadily from 10.8, down to 9.9 and then 8.9 today. We will give her an iron infusion today. The wound continues to drain brownish material consistent with necrotic tissue left over from the surgery. The sodium level is 125. The potassium is 3.8. The creatinine is 0.52. She has a new problem of slow swallowing consistent with esophageal dysfunction/stenosis. We will see if we can do an esophagram while she is here. She will ultimately need EGD and potentially esophageal balloon dilation. Exam Vital Signs (past 8 hours): Fraction of Inspired Oxygen 28 SaO2/FiO2 Ratio 328 Oxygen Delivery Method Room Air Oxygen Flow Rate 0 Narrative Exam Narrative: She is alert and oriented x3. She continues to show increased energy each day. Her appetite is good. Heart is regular rate and rhythm without murmur Lungs are clear to auscultation bilaterally Abdomen is soft, obese, moderate right lower quadrant tenderness. Copious brownish purulent discharge from all along the right groin incision with skin above and below swollen and red. There is no ankle edema Objective Labs 12/12/24 05:10 12/12/24 05:10 Labs: Laboratory Results - last 24 hr 12/12/24 05:10 WBC 11.0 RBC 3.03 L Hgb 8.9 L Hct 26.4 L MCV 87.2 MCH 29.5 MCHC 33.8 RDW 15.2 H Plt Count 456 H Neut % (Auto) Not Reportable Lymph % (Auto) Not Reportable [place] % (Auto) Not Reportable Eos % (Auto) Not Reportable Baso % (Auto) Not Reportable Lymph # (Auto) Not Reportable [place] # (Auto) Not Reportable Baso # (Auto) Not Reportable Total Counted 100 Seg Neutrophils % 77.0 H Band Neutrophils % 10.0 H Lymphocytes % (Manual) 7.0 L Monocytes % (Manual) 6.0 Neutrophils # (Manual) 9570 H RBC Morphology Normal morphology Sodium 125 L Potassium 3.8 Chloride 91 L Carbon Dioxide 32 BUN 12 Creatinine 0.52 Estimated GFR > 60 BUN/Creatinine Ratio 23.1 H Glucose 104 Calcium 7.4 L PFSH Medical History History of COVID-19 (05/2024) Hiatal hernia Serum sodium decreased Encounter for subsequent annual wellness visit (AWV) in Medicare patient Vision disorder Rosacea Shoulder pain (~2014) Foot pain Measles Chicken pox (~1949) Hearing loss (~2021) Cataracts, bilateral (~2014) History of urinary incontinence Neutropenia 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 Allergic rhinitis Osteoarthritis (~1997) Obstructive sleep apnea of adult Primary insomnia Lichen sclerosus et atrophicus Vitamin D deficiency Chronic cough Osteopenia HTN (hypertension) (~2009) Hyperlipidemia Surgical History 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) Hx of LASIK Anesthesia History of hand surgery (~2022) History of breast mammoplasty S/P foot surgery, right S/P UVPP (uvulopalatopharyngoplasty) Hx of bilateral breast reduction surgery S/P trigger finger release History of facelift Hx of bladder repair surgery Hx of partial thyroidectomy Hx of partial thyroidectomy Family History Mother Heart attack Brother History of heart disease Social History household members: none occupational status: previously employed Smoking Status: Never smoker alcohol intake: current substance use type: does not use Assessment & Plan Assessment & Plan narrative: Incarcerated femoral hernia. S/P Strangulated femoral hernia (Gangrenous small bowel with perforation). Small bowel resection with anastomosis, open repair of right femoral hernia on 12/03/24. -Continue to correct sodium and potassium. -now taking regular diet -Zosyn IV per General surgery, changed to Cipro and Flagyl on 12/10 due to IV failures. -right femoral incisional necrotic fluid collection draining spontaneously since 12/10. Culture is mixed skin chiara. -no evidence of an intra-abdominal infection or fistula on CT scan 12/10 Respiratory Symptoms -12/09/2024 continues to have peripheral edema -CXR without signs of pneumonia. Cardiomegaly. Development of small left pleural effusion and probable associated left basilar atelectasis. -wheezing without signs of hypoxia. Continues with albuterol. -additional Lasix given on 12/08, regular oral Lasix started on 12/10. ABLA -Postop hgb 9.1, follow. -hemoglobin 9.9 on 12/11 -Hemoglobin 8.9 on 12/12 -give IV iron X 2 Hypokalemia -Potassium chloride 20 mEq b.i.d. p.o. -40 mEq IV potassium on 12/09/2024 Hyponatremia hypovolemia. Likely from dehydration since patient has severe nausea and vomiting. NS and monitor sodium closely. NA slowly correcting and is currently in the 125-129 range. Hypothyroidism. Resumed home Synthroid. TSH 6.25. HTN. Monitor BP and resumed home medications. Hypomagnesemia -Mg 1.5 on 12/05/24. Supplemented IV X 1 and up to 2.5 on 12/06/24. HLD. Atorvastatin. Dysphagia -reported on 12/12. She points at her lower neck and mentions slow movement of food after swallowing. -likely to need EGD as outpatient. Ordered esophagram. DVT PPx SCDs and defer chemical PPx to general surgery Code status full code Disposition [facility] [place] in 1 day. Time-Based Coding :: [TOTAL MINUTES] spent with patient and on the chart (including review of chart, obtaining history, exam, reviewing outside data, placing orders, documenting exam and treatment plan, and counseling patient) on [DATE].
[2024-12-12] MEDS: POTASSIUM CHLORIDE 20 MEQ TAB PO ×2 (08:51→16:57)
[2024-12-12] MEDS: metroNIDAZOLE 500 MG TABLET PO ×3 (08:52→22:01)
[2024-12-12] MEDS: FUROSEMIDE 40 MG TABLET PO ×2 (08:52→16:57)
[2024-12-12] MEDS: MAGNESIUM HYDROXIDE 30 ML UDC PO ×2 (08:52→22:02)
[2024-12-12] MEDS: ASPIRIN EC 81 MG TABLET PO ×2 (08:52→22:01)
[2024-12-12] MEDS: SODIUM CHLORIDE 0.9% FLUSH 10 ML IV ×2 (08:55→22:03)
[2024-12-12] MEDS: FLUTICASONE 120 SPRAY/16 GM SPRAY.SUSP NASAL ×2 (08:56→22:01)
--- NOTE | 2024-12-12 12:00 | PT.IPTN ---
Current Diagnoses Hypo-osmolality and hyponatremia (12/03/24) Unilateral inguinal hernia, with obstruction, without gangrene, not specified as recurrent (12/03/24) Complete intestinal obstruction, unspecified as to cause (12/03/24) Surgery Performed Operation Date: 12/03/24 22:15 Actual Procedures p Hernia Repair - Inguinal, small bowel resection(Right) - Fuad Singh MD Physical Therapy Treatment Note M2 PT-IP Current Condition Start: 12/04/24 11:12 Freq: NEEDED Status: Active Protocol: Document 12/04/24 11:44 MB (Rec: 12/04/24 12:36 MB [id number]) Physical Therapy Current Condition Current Condition Evaluation Date 12/04/24 Treatment Diagnosis Small bowel resection, hernia repair, has drain and catheter M3 PT-IP Subjective Start: 12/04/24 11:12 Freq: NEEDED Status: Active Protocol: Document 12/12/24 12:00 AB (Rec: 12/12/24 14:00 AB [id number]) Subjective Physical Therapy Visit Type Type Treatment Note Visit Start Time 12:00 Visit Stop Time 12:15 Number of TRANSPLANTER ORCHID Visits 0 Physical Therapy Visit Comments Patient Comments agreed to do PT M4 PT-IP Mobility and Gait Start: 12/04/24 11:12 Freq: NEEDED Status: Active Protocol: Document 12/12/24 12:00 AB (Rec: 12/12/24 14:00 AB [id number]) PT-Transfer Assessment Sit to and From Stand Sit to and from Stand Standby Assistance,1 Person Assistance,Use of Upper Extremities Equipment Transfer Assistive Device Gait Belt,Front Wheeled Walker Comments Mobility Comments pt sitting on the chair and agreeable to do PT. sit to stand SBA. ambulated in the hallway using FWW SBA ~ 125 ft . pt requested to use the toilet and ambulated to the toilet using FWW SBA. pt wanting to use the toilet for a few minutes. nurse in room and took over pt's care. Gait Assessment Gait Gait Assistance Required: Standby Assistance Distance (Feet) 125 Able to Maintain Weight Bearing Status Yes During Gait Assistive Devices Assistive Device Gait Belt,Front Wheeled Walker Orthotic/Prosthetic Devices or Brace: No Gait Deviations General Gait Pattern Decreased Stride Length, Decreased Feet Clearance,Step- to Gait Factors Limiting Gait Function Factors Limiting Gait Function Decreased Activity Tolerance, Decreased Strength,Limited Range of Motion,Pain,Poor Balance,Poor Safety Awareness M5 PT-IP Objective Assessments Start: 12/04/24 11:12 Freq: NEEDED Status: Active Protocol: Document 12/04/24 11:44 MB (Rec: 12/04/24 12:36 MB [id number]) Orientation Orientation/Cognition Level of Alertness Alert Orientation Name,Age,Birthday,Month,Date, Year,Day of Week,Place, Situation Language Function Ability No Deficits Noted Safety Awareness Understands Safety Issues Memory Description No Deficits Noted Gross Range of Motion Upper Extremity ROM Impairments Defer to OT Lower Extremity ROM Assessment Within Functional Limits Impairments Recent LTKR and scar healing well and good function in leg today Strength Lower Extremity Strength Assessment Within Functional Limits Coordination Assessment Assessment Coordination Comments NT Sensation Assessment Comments Sensation Comments NT Muscle Tone Muscle Tone WNL Yes M6 PT-IP Treatment Start: 12/04/24 11:12 Freq: NEEDED Status: Active Protocol: Document 12/12/24 12:00 AB (Rec: 12/12/24 14:00 AB [id number]) Physical Therapy Treatment Education Education Provided Safety M7 PT-IP Assessment and Plan Start: 12/04/24 11:12 Freq: NEEDED Status: Active Protocol: Document 12/12/24 12:00 AB (Rec: 12/12/24 14:00 AB [id number]) PT Summary Assessment and Plan Potential Rehabilitation Potential Fair Summary Impairments Pain,ROM,Strength,Balance,Bed Mobility,Transfers,Gait, Activity Tolerance Assessment Summary pt requiring SBA with transfers and ambulation using FWW. continues to have decrease activity tolerance affecting functional independence. pt plans to d/c to SNF rehab. Goals Bed Mobility Goal Independent Transfer Goal Independent,Front Wheeled Walker Gait Goal Independent,Front Wheel Walker Gait Distance 150 Other Goals Pt will ascend and descend 1 low step with LRAD and no more than CGA to allow safe home entrance. Days to Meet Goals 5 Frequency of Treatment Frequency Of Treatment Once a Day Treatment Plan Physical Therapy Treatment Plan Bed Mobility Training,Transfer Training,Gait Training, Therapeutic Exercise,Balance Retraining,Post Op Education, Discharge Planning,Hot or Cold Pack,Neuromuscular Re-ed, Coordination Retraining,Manual Therapy Precautions Abdominal Surgery Precautions Log Roll,Lifting Restrictions, Gait Belt above Incisional Area Recommendations To Nursing Amount of Assist Needed 1 Person Assist Discharge Recommendations PT Discharge Recommendations SNF Rehab Transportation Needs at Discharge Private Vehicle,Wheelchair/ Cabulance
--- NOTE | 2024-12-12 12:36 | P.PN_ITS ---
Subjective Subjective Date Patient Seen: 12/12/24 Time Patient Seen: 12:36 Interval history: Dressing change by nursing staff today. Some purulent, creamy/brown drainage was on the dressing. Patient tolerated bathing fine. She is eating well. No pain. Exam Vital Signs (past 8 hours): Fraction of Inspired Oxygen 28 SaO2/FiO2 Ratio 328 Oxygen Delivery Method Room Air Oxygen Flow Rate 0 Objective Labs 12/12/24 05:10 12/12/24 05:10 Labs: Laboratory Results - last 24 hr 12/12/24 05:10 WBC 11.0 RBC 3.03 L Hgb 8.9 L Hct 26.4 L MCV 87.2 MCH 29.5 MCHC 33.8 RDW 15.2 H Plt Count 456 H Neut % (Auto) Not Reportable Lymph % (Auto) Not Reportable [place] % (Auto) Not Reportable Eos % (Auto) Not Reportable Baso % (Auto) Not Reportable Lymph # (Auto) Not Reportable [place] # (Auto) Not Reportable Baso # (Auto) Not Reportable Total Counted 100 Seg Neutrophils % 77.0 H Band Neutrophils % 10.0 H Lymphocytes % (Manual) 7.0 L Monocytes % (Manual) 6.0 Neutrophils # (Manual) 9570 H RBC Morphology Normal morphology Sodium 125 L Potassium 3.8 Chloride 91 L Carbon Dioxide 32 BUN 12 Creatinine 0.52 Estimated GFR > 60 BUN/Creatinine Ratio 23.1 H Glucose 104 Calcium 7.4 L [facility] Medical History History of COVID-19 (05/2024) Hiatal hernia Serum sodium decreased Encounter for subsequent annual wellness visit (AWV) in Medicare patient Vision disorder Rosacea Shoulder pain (~2014) Foot pain Measles Chicken pox (~1949) Hearing loss (~2021) Cataracts, bilateral (~2014) History of urinary incontinence Neutropenia 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 Allergic rhinitis Osteoarthritis (~1997) Obstructive sleep apnea of adult Primary insomnia Lichen sclerosus et atrophicus Vitamin D deficiency Chronic cough Osteopenia HTN (hypertension) (~2009) Hyperlipidemia Surgical History 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) Hx of LASIK Anesthesia History of hand surgery (~2022) History of breast mammoplasty S/P foot surgery, right S/P UVPP (uvulopalatopharyngoplasty) Hx of bilateral breast reduction surgery S/P trigger finger release History of facelift Hx of bladder repair surgery Hx of partial thyroidectomy Hx of partial thyroidectomy Family History Mother Heart attack Brother History of heart disease Social History household members: none occupational status: previously employed Smoking Status: Never smoker alcohol intake: current substance use type: does not use Assessment & Plan Post-op Postoperative Procedures: Procedures Operation Date: 12/03/24 22:15 Actual Procedure Side Surgeon p Hernia Repair - Inguinal, small bowel resection Right Fuad Singh MD Postoperative day: 9 Postoperative status: doing well Postoperative status narrative: Daily dressing changes. Plan to skilled facility tomorrow. Time Spent With Patient Time with patient: less than 15 minutes
[2024-12-12] MEDS: SODIUM FERRIC GLUCONAT/SUCROSE 125 MG in SODIUM CHLORIDE 0.9% 100 ML 110 MG IV (14:06)
--- NOTE | 2024-12-12 14:07 | OT.IP.TRT ---
Current Diagnoses Hypo-osmolality and hyponatremia (12/03/24) Unilateral inguinal hernia, with obstruction, without gangrene, not specified as recurrent (12/03/24) Complete intestinal obstruction, unspecified as to cause (12/03/24) Surgery Performed Operation Date: 12/03/24 22:15 Actual Procedures p Hernia Repair - Inguinal, small bowel resection(Right) - Fuad Singh MD Occupational Therapy Treatment Note M2 OT-IP Current Condition Start: 12/04/24 14:19 Freq: Status: Active Protocol: Document 12/04/24 14:19 CGR (Rec: 12/04/24 15:01 CGR [id number]) Occupational Therapy Current Condition Current Condition Evaluation Date 12/04/24 Treatment Diagnosis incarcerated inguinal hernia, 12/03 small bowel resection Diagnosis Onset Date 12/03/24 M3 OT- IP Subjective and Pain Start: 12/04/24 14:19 Freq: Status: Active Protocol: Document 12/12/24 14:06 CCC (Rec: 12/12/24 14:19 [facility] [id number]) OT- Subjective Occupational Therapy Visit Type Type Treatment Note Visit Start Time 11:18 Visit Stop Time 14:06 Notes Pt seen from [id number], [id number] 1407 Occupational Therapy Visit Comments Patient Comments Pt states able to shower this morning. Patient/Caregiver Goals TO get better. OT Pain Assessment Pain When Pain Assessed During Mobility Pain Present Pain Present Pain Reported Location abdomen Pain Behaviors Facial Grimacing M4 OT- IP ADL's Start: 12/04/24 14:19 Freq: Status: Active Protocol: Document 12/12/24 14:06 CCC (Rec: 12/12/24 14:19 [facility] [id number]) OT [id number] Comments OT Self-Feeding Comments Pt states needing to take over an hour to eat and that she has to chew the food thoroughly and that it seem to sit in her esophagus per pt and needing time to get her food down. Spoke to the hospitalist to see if CALCULATION REVIEWER eval might be helpful and/or possibly need of change in texture. Educated to pt to be sure to sit upright while eating. Educated maybe easier for the kitchen to send up softer foods. OT ADL-Grooming Comments OT Grooming Comments Pt able to do with SBA. M5 OT- IP IADL's Start: 12/04/24 14:19 Freq: Status: Active Protocol: Document 12/04/24 14:19 CGR (Rec: 12/04/24 15:01 CGR [id number]) OT-Instrumental Activities of Daily Living Deficits IADL Deficits Identified No Deficits Home Safety Awareness Awareness of Need for Assistance at Home Good Awareness Ability to Problem Solve Emergency Able to Problem Solve Situations Medication Management Medication Management No Deficits Identified Money Management Money Management No Deficits Identified Meal Preparation Meal Preparation No Deficits Identified Financial Operations Analyst Financial Operations Analyst No Deficits Identified Driving Driving Comments 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 M6 OT- IP Functional Cognition Start: 12/04/24 14:19 Freq: Status: Active Protocol: Document 12/08/24 14:47 CCC (Rec: 12/08/24 15:34 CCC [id number]) Cognitive Factors Limiting Selfcare Function Cognitive Ability Level of Alertness Alert Patient Orientation Name,Age,Birthday,Month,Date, Year,Day of Week,Place, Situation Attention Span Ability Capable of Focused Attention, Capable of Sustained Attention Cognitive Comments Cognitive Assessment Comments Pt has good awareness for safety and energy conservation for ADL needs today. M7 OT- IP Mobility and Balance Start: 12/04/24 14:19 Freq: Status: Active Protocol: Document 12/12/24 14:06 CCC (Rec: 12/12/24 14:19 CCC [id number]) OT-Transfer Assessment Comments Mobility Comments Pt states having difficulty to get into the bed and wanting pt to try as able to tilt the bed by 5 degrees which will be helpful for her. Able to educate pt's nurse for bed mobility needs. Pt not wanting to try bed mobility at this time. OT- Balance Assessment Sitting Balance and Reactions Static Sitting Balance Ability Good Dynamic Sitting Balance Ability Good M8 OT- IP Objective Assessments Start: 12/04/24 14:19 Freq: Status: Active Protocol: Document 12/04/24 14:19 CGR (Rec: 12/04/24 15:01 CGR [id number]) OT Gross Range of Motion Upper Extremity Range of Motion Assessment Within Functional Limits OT Strength Upper Extremity Strength Assessment Within Functional Limits Comments Strength Comments grossly 4/5 OT- Coordination Assessment Upper Extremity Finger to Nose Test Within Functional Limits Finger Tapping Test Within Functional Limits OT-Muscle Tone Assessment Muscle Tone WNL Yes OT Sensation Assessment Edema Edema Absent M9 OT- IP Assessment and Plan Start: 12/04/24 14:19 Freq: Status: Active Protocol: Document 12/12/24 14:06 [facility] (Rec: 12/12/24 14:19 [facility] [id number]) OT Summary Assessment and Plan Potential Rehabilitation Potential Good Analytic Complexity at Evaluation Moderate Summary OT Impairments Pain,Strength,Balance, Functional Mobility,Grooming, Dressing,Toileting,Bathing, Toilet Transfers,Shower Transfers,Activity Tolerance Progress Towards Goals Progressing Toward Goals,Slow Progress due to Medical Issues Assessment Summary Able to talk to the pt about bed mobility and educated nurse that will be easier to tilt the bed by 5 degrees to make it shorter so able to make it lower to get onto and off the bed. Pt to go to skilled rehab when medically stable. Goals Toileting Goal Independent Bathing Goal Independent Toilet Transfer Goal Independent Shower Transfer Goal Independent Days to Meet Goals 14 Frequency of Treatment Other frequency 5x a week Treatment Plan OT Treatment Plan ADL Training,Functional Mobility,Patient/Family Education,Discharge Planning Discharge Recommendations OT Discharge Recommendations SNF Rehab Transportation Needs at Discharge Private Vehicle,Wheelchair/ Cabulance
[2024-12-12] MEDS: SODIUM CHLORIDE 1,000 MG TABLET 1000 MG PO (16:57)
--- NOTE | 2024-12-12 17:24 | PC.NURSE ---
Patient with x2 ABD and 4 4x4's dressing to RLQ incision. It is saturated twice this shift. Patient showered and open incision cleansed with soap and water. Dressing this evening soaked through with fecal appearing and smelling brown output leaking out of it. Per MD, explained it is not enough output at this time requiring colostomy. Patient did have x2 small loose bowels in the toilet today as well. Continuous monitoring.
[2024-12-12 20:00] VITALS: BP 133/60; PULSE 89; RESP 18; TEMP 36.6; O2SAT 94
[2024-12-12 21:57] VITALS: BP 148/69; PULSE 88
[2024-12-12] MEDS: lisinopriL 10 MG TABLET PO (21:57)
[2024-12-12] MEDS: ACETAMINOPHEN 325 MG TABLET 650 MG PO (22:01)
[2024-12-12] MEDS: ATORVASTATIN 20 MG TABLET 10 MG PO (22:02)
[2024-12-12] MEDS: DOXYCYCLINE HYCLATE 100 MG TABLET PO (23:50)
--- NOTE | 2024-12-12 23:53 | DI.CT.S_ITS ---
PROCEDURE: CT CHEST ABD PEL W CON INDICATIONS: concern for absces and complications from surgery TECHNIQUE: After the administration of intravenous contrast, 5 mm thick sections acquired from the lung apices to the symphysis. 5 mm coronal and sagittal reformats were performed, with additional 7 mm MIP reformats through the lungs. For radiation dose reduction, the following was used: automated exposure control, adjustment of mA and/or kV according to patient size. COMPARISON: [facility], CT, CT ABDOMEN PELVIS W CON, 12/10/2024, 23:30. FINDINGS: Image quality: Excellent. CHEST: Lower Neck: No enlarged lymph nodes. Thyroid: No thyroid nodules which require sonographic follow up, per consensus guidelines. Axillae: No enlarged lymph nodes. Chest Wall: Unremarkable. Lungs and Pleura: No pneumothorax or pleural effusions. No consolidation or suspicious nodules. Heart: Heart size is enlarged . No pericardial effusion. Thoracic Vessels: The aorta and pulmonary arteries demonstrate normal size. Mediastinum and Toña: No enlarged lymph nodes. Esophagus: No wall thickening. Moderate hiatal hernia. ABDOMEN: Liver: No solid mass. Steatosis. Gallbladder: No radiopaque gallstones or wall thickening. Biliary ducts: No biliary dilation. Pancreas: No ductal dilation. Spleen: Size is within normal limits. Adrenal Glands: No adrenal nodules. Kidneys and Ureters: No hydronephrosis. No solid mass. No complex renal cystic lesion which requires follow up. Stomach and Bowel: Previously identified incisional site in the right lower quadrant continues to demonstrate soft tissue density with areas of air and fluid. It is overall mildly less prominent. Previously identified areas of free air within the lower pelvis are again identified appearing similar. There are areas of hyperdensity suggested to be related potentially to either suture material or with cysts oral contrast. Ill-defined areas of low-attenuation fluid are present. Numerous overlying bowel loops are present. Fluid along the right paracolic gutter is unchanged compared to prior exam. There is no rim enhancement. Peritoneum: Dependent fluid and free intraperitoneal air remain present. Ventral Wall: Fat containing ventral ventral hernia. Abdominal Nodes: No retroperitoneal or mesenteric adenopathy by size criteria. Vessels: Aorta and inferior vena cava are normal in size. PELVIS: Pelvic Organs: Unremarkable. Bladder: No bladder wall thickening, accounting for underdistention. Pelvic Nodes: No enlarged lymph nodes. Miscellaneous: Bones: No aggressive osseous abnormality. IMPRESSION: Fluid soft tissue density and air remain in the right inguinal region at surgical site slightly less prominent when compared to prior exam. However, there remains areas fluid, air and overlapping bowel loops within the right lower pelvis at the surgical site. Overall appearance is relatively unchanged compared to prior exam. Area of developing abscess/phlegmon or potentially perforation cannot be excluded given confluent structures of fluid, bowel, soft tissue and air. Further delineation of structures within the surgical region may be better evaluated with contrast within the small bowel within this region. Otherwise, surgical consultation is recommended. Dictated by: Nicole Christopher M.D. on 12/13/2024 at 1:37 Approved by: Nicole Christopher M.D. on 12/13/2024 at 1:50
--- NOTE | 2024-12-13 02:08 | PC.NURSE ---
Addendum entered by Crys Ramos R.N. 12/13/24 06:30: 0600 dressing changed Pt tolerated well with out complaint. Addendum entered by Crys Ramos R.N. 12/13/24 05:14: Dressing changed and purwick changed, complete linen change due to drainage leaking from wound. Pt tolerated without complaint. VS taken WNL. Addendum entered by Crys Ramos R.N. 12/13/24 03:27: Dressing changed Pt tolerated well no complaints of pain. Addendum entered by Crys Ramos R.N. 12/13/24 02:33: Dressing change done and wound reinforced with steri strips to prevent wound from opening. Pt tolerated dressing change well VS WNL Pt denied pain. Original Note: Nightshift, Since start of shift patient has required wound care/dressing changes [id number],RN notified health education teacher Dr Figueroa of frequent dressing changes and discharge from wound. CT with contrast was ordered (view in [facility]). Pt has mild HTN, but all other VS WNL. Pt denies pain/nausea/vomit/chills/fever but patient skin is hot touch at wound site but no measurable fever oral or temporal. churner notified and aware of situation. Dr Figueroa placed Pt on telemetry and ordered additional oral antibiotics. RN will continue to monitor patient and update churner/ MD of any changes.
[2024-12-13] MEDS: HEPARIN 5,000 UNIT/ML VIAL 5000 UNIT SUBCUT ×3 (06:21→21:59)
[2024-12-13] MEDS: LEVOTHYROXINE 100 MCG TABLET PO (06:21)
[2024-12-13] MEDS: ACETAMINOPHEN 325 MG TABLET 650 MG PO ×2 (06:21→21:58)
[2024-12-13] MEDS: PANTOPRAZOLE DR 40 MG TABLET PO (06:21)
[2024-12-13] MEDS: CIPROFLOXACIN 250 MG TABLET 500 MG PO (06:21)
[2024-12-13 06:33] LABS: Add Manual Diff / Slide Review NO; Basophils Absolute Auto 100 /uL (0-100); Basophils Percent Auto 0.9 % (0-2); Eosinophils Absolute Auto 100 /uL (0-450); Eosinophils Percent Auto 1.1 % (2-4); Hematocrit 30.5 % (36-46); Hemoglobin 10.2 g/dL (12.0-16.0); Lymphocytes Absolute Auto 600 /uL (1100-4500); Lymphocytes Percent Auto 5.1 % (25-40); Mean Corpuscular HGB Conc 33.4 % (30-36); Mean Corpuscular Hemoglobin 29.1 PG (26-34); Mean Corpuscular Volume 87.3 fL (80-100); Monocytes Absolute Auto 400 /uL (0-900); Monocytes Percent Auto 3.4 % (3-14); Neutrophils Absolute Auto 10900 /uL (1500-7000); Neutrophils Percent Auto 89.5 % (50-75); Platelet Count 562 X10^3/uL (150-400); Red Blood Cell Count 3.49 X10^6/uL (4.0-5.2); Red Cell Distribution Width 15.5 % (11.6-14.8); White Blood Cell Count 12.2 X10^3/uL (4.5-11.0)
[2024-12-13 06:45] LABS: Blood Urea Nitrogen 14 mg/dL (7-17); Calcium 7.7 mg/dL (8.4-10.2); Carbon Dioxide 28 mmol/L (22-32); Chloride 91 mmol/L (98-107); Estimated Glomerular Filt Rate > 60 mL/min (>60); Glucose 115 mg/dL (80-110); HEMOLYSIS < 15 (0-50); Sodium 122 mmol/L (137-145)
[2024-12-13 07:00] VITALS: BP 118/60; PULSE 88; RESP 14; TEMP 37; O2SAT 98
--- NOTE | 2024-12-13 07:18 | PC.WOUNDPHOT ---
Updated wound photo 12/12/24 at 2330, TONNY Spangler.
[2024-12-13] MEDS: POTASSIUM CHLORIDE 20 MEQ TAB PO ×2 (08:27→16:33)
[2024-12-13] MEDS: FLUTICASONE 120 SPRAY/16 GM SPRAY.SUSP NASAL ×2 (08:27→22:00)
[2024-12-13] MEDS: DOXYCYCLINE HYCLATE 100 MG TABLET PO (08:27)
[2024-12-13] MEDS: MAGNESIUM HYDROXIDE 30 ML UDC PO (08:27)
[2024-12-13] MEDS: ASPIRIN EC 81 MG TABLET PO ×2 (08:27→21:55)
[2024-12-13] MEDS: metroNIDAZOLE 500 MG TABLET PO ×2 (08:27→15:40)
[2024-12-13] MEDS: SODIUM CHLORIDE 1,000 MG TABLET 1000 MG PO ×3 (08:27→16:33)
[2024-12-13] MEDS: FUROSEMIDE 40 MG TABLET PO ×2 (08:33→16:33)
[2024-12-13] MEDS: SODIUM CHLORIDE 0.9% FLUSH 10 ML IV ×2 (08:34→22:00)
[2024-12-13] MEDS: SODIUM FERRIC GLUCONAT/SUCROSE 125 MG in SODIUM CHLORIDE 0.9% 100 ML 110 MG IV (09:06)
--- NOTE | 2024-12-13 10:22 | P.PN_ITS ---
Subjective Subjective Date Patient Seen: 12/13/24 Time Patient Seen: 10:22 Interval history: Patient is continuing to have some drainage. The drainage has not been quantified by nursing, I have asked them to place an ostomy bag to help quantify the output. There was a repeat CT scan done yesterday, but no oral contrast was given. My review of the CT scan does not show any free air or free fluid without the abdomen to make this seemed that there was an uncontrolled infection. Exam Vital Signs (past 8 hours): Fraction of Inspired Oxygen 28 SaO2/FiO2 Ratio 328 Oxygen Delivery Method Room Air Oxygen Flow Rate 0 Narrative Exam Narrative: Wound is packed with fresh dressing Objective Labs 12/13/24 05:20 12/13/24 05:20 Labs: Laboratory Results - last 24 hr 12/13/24 05:20 WBC 12.2 H RBC 3.49 L Hgb 10.2 L Hct 30.5 L MCV 87.3 MCH 29.1 MCHC 33.4 RDW 15.5 H Plt Count 562 H Neut % (Auto) 89.5 H Lymph % (Auto) 5.1 L [place] % (Auto) 3.4 Eos % (Auto) 1.1 L Baso % (Auto) 0.9 Neut # (Auto) 93157 H Lymph # (Auto) 600 L [place] # (Auto) 400 Eos # (Auto) 100 Baso # (Auto) 100 Sodium 122 L Potassium 4.0 Chloride 91 L Carbon Dioxide 28 BUN 14 Creatinine 0.50 L Estimated GFR > 60 BUN/Creatinine Ratio 28.0 H Glucose 115 H Calcium 7.7 L [facility] Medical History History of COVID-19 (05/2024) Hiatal hernia Serum sodium decreased Encounter for subsequent annual wellness visit (AWV) in Medicare patient Vision disorder Rosacea Shoulder pain (~2014) Foot pain Measles Chicken pox (~1949) Hearing loss (~2021) Cataracts, bilateral (~2014) History of urinary incontinence Neutropenia 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 Allergic rhinitis Osteoarthritis (~1997) Obstructive sleep apnea of adult Primary insomnia Lichen sclerosus et atrophicus Vitamin D deficiency Chronic cough Osteopenia HTN (hypertension) (~2009) Hyperlipidemia Surgical History 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) Hx of LASIK Anesthesia History of hand surgery (~2022) History of breast mammoplasty S/P foot surgery, right S/P UVPP (uvulopalatopharyngoplasty) Hx of bilateral breast reduction surgery S/P trigger finger release History of facelift Hx of bladder repair surgery Hx of partial thyroidectomy Hx of partial thyroidectomy Family History Mother Heart attack Brother History of heart disease Social History household members: none occupational status: previously employed Smoking Status: Never smoker alcohol intake: current substance use type: does not use Assessment & Plan Post-op Postoperative Procedures: Procedures Operation Date: 12/03/24 22:15 Actual Procedure Side Surgeon p Hernia Repair - Inguinal, small bowel resection Right Fuad Singh MD Postoperative day: 10 Postoperative status narrative: Patient is draining through the right lower quadrant incision. She has severe protein calorie malnutrition. We have not yet quantified of the output. If the output is greater than 250 mL per day, would recommend TPN supplementation and decreased oral intake. If the output is less than 250 mL per day, continue protein shakes and local dressing. May be a candidate for a wound VAC prior to discharge. Time Spent With Patient Time with patient: less than 15 minutes
--- NOTE | 2024-12-13 12:55 | CM.DPC ---
DCP Cont. Reviewed EMR and team rounds for status updates. Dr. Singh placed a new wound vac on pt today, he states that she can d/c to [facility] after today if they have their own wound vac in place, and have a bed. Emailed [facility] to update. Will continue to monitor for transport time/day for admit.
--- NOTE | 2024-12-13 16:15 | DIET.PN1 ---
Dietary Progress Note Assessment: Pt doing 3 Ensure Enlive per day. Not ordering much food options. Met with pt and discussed options they are open to. Patient expressing not having enough of an appetite to eat much food and doesn't like much of the food options. Went over menu options and ordered a dinner and breakfast patient would be able to tolerate better. Pt wanting small portions. Ht: 149.86 cm Wt: 68.039 kg BMI: 30.2 Last BM: 12/13/24 (12/13/24 08:30) MNA: 10 Avinash Score: 17 Diet: 12/11/24 Breakfast Soft,Low Fiber (Low residue) Diet Diet Modifications: Fluid restriction of 1500ml per day Food Texture: Level 7 - Regular Liquid Consistency: Level 0 - Thin Nutrition Percent Meal Consumed 50% 12/13/24 08:00 Percent Meal Consumed 50% 12/12/24 18:00 Percent Meal Consumed 100% 12/11/24 18:00 Labs: RBC 3.49 X10^6/uL (4.0-5.2) L 12/13/24 05:20 Hgb 10.2 g/dL (12.0-16.0) L 12/13/24 05:20 Hct 30.5 % (36-46) L 12/13/24 05:20 Creatinine 0.50 mg/dL (0.52-1.04) L 12/13/24 05:20 Lactate 1.4 mmol/L (0.7-2.1) 12/03/24 17:50 NT-Pro-B Natriuret Pep 379 pg/mL (<450) 12/06/24 07:02 Electronically Signed by: Jocelyn Hinds 12/13/24 16:15 Clinical Dietitian [address] [address]
--- NOTE | 2024-12-13 16:25 | OT.IPNOTE ---
Pt now having wound vac and has been getting up with nursing to [facility]SC. Pt too tired to do OT today and just wanting to rest.
--- NOTE | 2024-12-13 16:33 | PM.EVENT ---
Event Note Date Patient Seen: 12/13/24 Time Patient Seen: 16:33 Event Note (Rapid Response, Code, or fall): Wound VAC placed on the wound to help quantify output. She has had over 250 mL of output and about 4 hours. The consistency of the output appears to be fistulous output. Patient has had her protein shakes today, so would not be able to do a procedure today. We will make her NPO, start octreotide and plan for a laparotomy, wound VAC exchange and possible ileostomy tomorrow.
--- NOTE | 2024-12-13 16:42 | PM.PN.1 ---
Subjective Subjective Date Patient Seen: 12/13/24 Interval history: She is seen today to follow-up her right femoral wound infection, anemia of chronic disease, hyponatremia and for discharge planning. Her sodium level has dropped from 12/16 down to 122. The potassium is 4.0 and the creatinine is stable at 0.5. The hemoglobin has risen from 8.9 up to 10.2. The white blood count toribio slightly to 12.2. She continues to have copious brownish discharge which is not malodorous from the right femoral wound. Later in the day surgery applied a wound VAC which apparently began draining bowel contents thus indicating the presence of a fistula. She is now NPO with IV fluid maintenance pending surgery for tomorrow. A PICC line has been placed. TPN will be started soon. Exam Vital Signs (past 8 hours): Fraction of Inspired Oxygen 28 SaO2/FiO2 Ratio 328 Oxygen Delivery Method Room Air Oxygen Flow Rate 0 Narrative Exam Narrative: Alert and oriented x3. No apparent distress Heart is regular rate and rhythm without murmur Lungs are clear to auscultation bilaterally Abdomen is soft, bowel sounds positive, nontender, no organomegaly She has a ostomy bag over the draining site on the right groin which subsequently today was changed to a wound VAC. The drainage is brown in color. Objective Labs 12/13/24 05:20 12/13/24 05:20 Labs: Laboratory Results - last 24 hr 12/13/24 05:20 WBC 12.2 H RBC 3.49 L Hgb 10.2 L Hct 30.5 L MCV 87.3 MCH 29.1 MCHC 33.4 RDW 15.5 H Plt Count 562 H Neut % (Auto) 89.5 H Lymph % (Auto) 5.1 L [place] % (Auto) 3.4 Eos % (Auto) 1.1 L Baso % (Auto) 0.9 Neut # (Auto) 15356 H Lymph # (Auto) 600 L [place] # (Auto) 400 Eos # (Auto) 100 Baso # (Auto) 100 Sodium 122 L Potassium 4.0 Chloride 91 L Carbon Dioxide 28 BUN 14 Creatinine 0.50 L Estimated GFR > 60 BUN/Creatinine Ratio 28.0 H Glucose 115 H Calcium 7.7 L [facility] Medical History History of COVID-19 (05/2024) Hiatal hernia Serum sodium decreased Encounter for subsequent annual wellness visit (AWV) in Medicare patient Vision disorder Rosacea Shoulder pain (~2014) Foot pain Measles Chicken pox (~1949) Hearing loss (~2021) Cataracts, bilateral (~2014) History of urinary incontinence Neutropenia 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 Allergic rhinitis Osteoarthritis (~1997) Obstructive sleep apnea of adult Primary insomnia Lichen sclerosus et atrophicus Vitamin D deficiency Chronic cough Osteopenia HTN (hypertension) (~2009) Hyperlipidemia Surgical History 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) Hx of LASIK Anesthesia History of hand surgery (~2022) History of breast mammoplasty S/P foot surgery, right S/P UVPP (uvulopalatopharyngoplasty) Hx of bilateral breast reduction surgery S/P trigger finger release History of facelift Hx of bladder repair surgery Hx of partial thyroidectomy Hx of partial thyroidectomy Family History Mother Heart attack Brother History of heart disease Social History household members: none occupational status: previously employed Smoking Status: Never smoker alcohol intake: current substance use type: does not use Assessment & Plan Assessment & Plan narrative: Incarcerated femoral hernia. S/P Strangulated femoral hernia (Gangrenous small bowel with perforation). Small bowel resection with anastomosis, open repair of right femoral hernia on 12/03/24. 12/13/2024 confirmed fistula formation at the femoral hernia repair site, now pending resection of the fistula, potential ileostomy 12/14. -changed to NPO, started on IV fluids. -begin TPN when available -Zosyn IV per General surgery Respiratory Symptoms -peripheral edema secondary to low protein oncotic pressure -wheezing without signs of hypoxia. Continues with albuterol. -additional Lasix given on 12/08, regular oral Lasix started on 12/10. ABLA -Postop hgb 9.1, follow. -hemoglobin 9.9 on 12/11 -Hemoglobin 8.9 on 12/12 -IV iron X 2 -Hemoglobin 10.2 on 12/13 Hypokalemia -40 mEq IV potassium on 12/09/2024 -4.0 on 12/13 Hyponatremic hypovolemia. Likely initially from dehydration of severe nausea and vomiting. NS and monitor sodium closely. NA was correcting but has drifted down to 122. -Salt Tablets and 1,500 cc fluid restriction (all on hold for pending surgery) Hypothyroidism. Resumed home Synthroid. TSH 6.25. HTN. Monitor BP and resumed home medications. Hypomagnesemia -Mg 1.5 on 12/05/24. Supplemented IV X 1 and up to 2.5 on 12/06/24. -Starting on TPN on 12/14/24 HLD. Atorvastatin. Dysphagia -reported on 12/12. She points at her lower neck and mentions slow movement of food after swallowing. -likely to need EGD as outpatient. Ordered esophagram but there was no inhouse radiology and then the new surgical plans took precedence. DVT PPx SCDs and defer chemical PPx to general surgery Code status full code Disposition [facility] eventually. Time-Based Coding :: [TOTAL MINUTES] spent with patient and on the chart (including review of chart, obtaining history, exam, reviewing outside data, placing orders, documenting exam and treatment plan, and counseling patient) on [DATE].
--- NOTE | 2024-12-13 17:01 | PT-IP ANOTE ---
checked on pt and pt refused PT. stated that they put wound vac on this morning and has been getting up with nursing staff to use the toilet and is tired at this time.
--- NOTE | 2024-12-13 17:20 | DI.RAD.S_ITS ---
PROCEDURE: XR CHEST FOR PICC 1V INDICATIONS: line placement COMPARISON: [facility], CR, XR CHEST 1V, 12/06/2024, 12:00. [facility], CR, XR CHEST 1V, 12/03/2024, 17:24. FINDINGS: PICC was placed by the intravenous therapy team from the left side. Fluoroscopic spot film demonstrates the tip of PICC projecting to the area of mid SVC. Degenerative osseous changes. Right shoulder arthroplasty. Chest findings better assessed on CT. IMPRESSION: Tip of PICC projects to the area of mid SVC. Dictated by: Darryn Gutierrez M.D. on 12/13/2024 at 17:37 Approved by: Darryn Gutierrez M.D. on 12/13/2024 at 17:41
[2024-12-13] MEDS: OCTREOTIDE 100 MCG/ML VIAL SUBCUT ×2 (17:49→21:57)
[2024-12-13] MEDS: SODIUM CHLORIDE 0.9% 1,000 ML 75 ML IV (17:49)
[2024-12-13] MEDS: PIPERACILLIN/TAZO 4.5 GM in SODIUM CHLORIDE 0.9% 100 ML IV (17:49)
--- NOTE | 2024-12-13 18:50 | PC.NURSE ---
Copious amounts of purulent, brown drainage from abd incision requiring multiple dressing changes noted this morning. Attending physician and consulting surgeon notified. Instructed to place ostomy bag for output collection and quantification but resulted in poor seal and continued leaking, surgeon notified. Surgeon came to bedside and placed wound vac. Wound vac initially working with good seal but required several episodes of reinforcement with continued leaking. Surgeon notified of wound vac output of 250 ml since placement and continued leaking. Surgeon came back to bedside and replaced wound vac, see new orders. 1854 wound vac noted to have pooling of stool under the dressing, surgeon notified via telephone. No new orders at this time.
[2024-12-13 20:00] VITALS: BP 136/58; PULSE 92; RESP 17; TEMP 36; O2SAT 94
[2024-12-13 21:56] VITALS: BP 136/58; PULSE 92
[2024-12-13] MEDS: ATORVASTATIN 20 MG TABLET 10 MG PO (21:56)
[2024-12-13] MEDS: lisinopriL 10 MG TABLET PO (21:56)
[2024-12-13] MEDS: PIPERACILLIN/TAZO 3.375 GM in SODIUM CHLORIDE 0.9% 100 ML IV (21:59)
[2024-12-14] VITALS (18 sets, daily range): BP systolic 92–165; BP diastolic 44–86; PULSE 77–120; RESP 14–27; TEMP 35.6–37; O2SAT 90–98; BMI 30.2
[2024-12-14] MEDS: PIPERACILLIN/TAZO 3.375 GM in SODIUM CHLORIDE 0.9% 100 ML IV ×3 (05:32→21:37)
[2024-12-14] MEDS: HEPARIN 5,000 UNIT/ML VIAL 5000 UNIT SUBCUT ×2 (05:34→21:42)
[2024-12-14] MEDS: LEVOTHYROXINE 100 MCG TABLET PO (05:47)
[2024-12-14] MEDS: SODIUM CHLORIDE 0.9% 1,000 ML 75 ML IV (06:12)
[2024-12-14] MEDS: PANTOPRAZOLE DR 40 MG TABLET PO (06:12)
[2024-12-14 06:20] LABS: Add Manual Diff / Slide Review NO; Basophils Absolute Auto 100 /uL (0-100); Basophils Percent Auto 0.6 % (0-2); Eosinophils Absolute Auto 200 /uL (0-450); Eosinophils Percent Auto 1.5 % (2-4); Hematocrit 25.8 % (36-46); Hemoglobin 8.7 g/dL (12.0-16.0); Lymphocytes Absolute Auto 600 /uL (1100-4500); Lymphocytes Percent Auto 5.7 % (25-40); Mean Corpuscular HGB Conc 33.8 % (30-36); Mean Corpuscular Hemoglobin 29.7 PG (26-34); Mean Corpuscular Volume 87.8 fL (80-100); Monocytes Absolute Auto 600 /uL (0-900); Monocytes Percent Auto 5.8 % (3-14); Neutrophils Absolute Auto 9300 /uL (1500-7000); Neutrophils Percent Auto 86.4 % (50-75); Platelet Count 540 X10^3/uL (150-400); Red Blood Cell Count 2.94 X10^6/uL (4.0-5.2); Red Cell Distribution Width 15.6 % (11.6-14.8); White Blood Cell Count 10.8 X10^3/uL (4.5-11.0)
[2024-12-14 06:26] LABS: BUN Creatinine Ratio 21.8 (6-22); Blood Urea Nitrogen 12 mg/dL (7-17); Calcium 7.4 mg/dL (8.4-10.2); Carbon Dioxide 30 mmol/L (22-32); Chloride 95 mmol/L (98-107); Estimated Glomerular Filt Rate > 60 mL/min (>60); Glucose 116 mg/dL (80-110); HEMOLYSIS < 15 (0-50); Potassium 4.5 mmol/L (3.4-5.1); Sodium 127 mmol/L (137-145)
--- NOTE | 2024-12-14 07:57 | PM.PN.1 ---
Subjective Subjective Interval history: Interval history: She is seen today to follow-up her right femoral wound infection, anemia of chronic disease, hyponatremia and for discharge planning. Her sodium level has dropped from 12/16 down to 122. The potassium is 4.0 and the creatinine is stable at 0.5. The hemoglobin has risen from 8.9 up to 10.2. The white blood count toribio slightly to 12.2. She continues to have copious brownish discharge which is not malodorous from the right femoral wound. Later in the day surgery applied a wound VAC which apparently began draining bowel contents thus indicating the presence of a fistula. She is now NPO with IV fluid maintenance pending surgery for tomorrow. A PICC line has been placed. TPN will be started soon. S: She was doing well after surgery. She had a limited small-bowel resection with anastomosis. She has multiple drains and a wound VAC in place. She declines any [place] wants to try to use just Tylenol for postoperative pain. Exam Vital Signs (past 8 hours): - 12/14/24 00:00 12/14/24 04:00 Temperature 96.7 F L 96.4 F L Pulse Rate 85 84 Respiratory Rate 18 18 Blood Pressure 128/62 140/58 L Pulse Oximetry 94 94 Oxygen Flow Rate 0 0 Fraction of Inspired Oxygen 28 SaO2/FiO2 Ratio 328 Oxygen Delivery Method Room Air Oxygen Flow Rate 0 Narrative Exam Narrative: NAD, alert and oriented. Fluent speech. Lungs are clear, normal rate and effort. Heart is regular, no murmur gallop or rub. Abdomen is soft, non distended. Multiple drains and a wound VAC in place, midline incision is dressed. Extremities are free of edema. Objective Labs 12/14/24 05:40 12/14/24 14:50 Labs: Laboratory Results - last 24 hr 12/14/24 05:40 WBC 10.8 RBC 2.94 L Hgb 8.7 L Hct 25.8 L MCV 87.8 MCH 29.7 MCHC 33.8 RDW 15.6 H Plt Count 540 H Neut % (Auto) 86.4 H Lymph % (Auto) 5.7 L [place] % (Auto) 5.8 Eos % (Auto) 1.5 L Baso % (Auto) 0.6 Neut # (Auto) 9300 H Lymph # (Auto) 600 L [place] # (Auto) 600 Eos # (Auto) 200 Baso # (Auto) 100 Sodium 127 L Potassium 4.5 Chloride 95 L Carbon Dioxide 30 BUN 12 Creatinine 0.55 Estimated GFR > 60 BUN/Creatinine Ratio 21.8 Glucose 116 H Calcium 7.4 L PFSH Medical History History of COVID-19 (05/2024) Hiatal hernia Serum sodium decreased Encounter for subsequent annual wellness visit (AWV) in Medicare patient Vision disorder Rosacea Shoulder pain (~2014) Foot pain Measles Chicken pox (~1949) Hearing loss (~2021) Cataracts, bilateral (~2014) History of urinary incontinence Neutropenia 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 Allergic rhinitis Osteoarthritis (~1997) Obstructive sleep apnea of adult Primary insomnia Lichen sclerosus et atrophicus Vitamin D deficiency Chronic cough Osteopenia HTN (hypertension) (~2009) Hyperlipidemia Surgical History 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) Hx of LASIK Anesthesia History of hand surgery (~2022) History of breast mammoplasty S/P foot surgery, right S/P UVPP (uvulopalatopharyngoplasty) Hx of bilateral breast reduction surgery S/P trigger finger release History of facelift Hx of bladder repair surgery Hx of partial thyroidectomy Hx of partial thyroidectomy Family History Mother Heart attack Brother History of heart disease Social History household members: none occupational status: previously employed Smoking Status: Never smoker alcohol intake: current substance use type: does not use Assessment & Plan Assessment & Plan narrative: 1. Incarcerated femoral hernia. S/P Strangulated femoral hernia (Gangrenous small bowel with perforation). Small bowel resection with anastomosis, open repair of right femoral hernia on 12/03/24. 12/13/2024 confirmed fistula formation at the femoral hernia repair site, now pending resection of the fistula, potential ileostomy 12/14. -changed to NPO, started on IV fluids. -begin TPN when available -Zosyn IV per General surgery Status post resection of small bowel with primary anastomosis today. 2. Acute blood loss anemia, present on admission stable. -Postop hgb 9.1, follow. -hemoglobin 9.9 on 12/11 -Hemoglobin 8.9 on 12/12 -IV iron X 2 -Hemoglobin 10.2 on 12/13 3. Hypokalemia, improved. -40 mEq IV potassium on 12/09/2024 -4.0 on 12/13 4. Hyponatremic hypovolemia. Improved. 5. Hypothyroidism. Resumed home Synthroid. TSH 6.25. HTN. Monitor BP and resumed home medications. 6. Hypomagnesemia, improved. -Mg 1.5 on 12/05/24. Supplemented IV X 1 and up to 2.5 on 12/06/24. -Starting on TPN on 12/14/24 7. HLD. Atorvastatin. Stable. 8. Dysphagia, improved. -reported on 12/12. She points at her lower neck and mentions slow movement of food after swallowing. -likely to need EGD as outpatient. Ordered esophagram but there was no inhouse radiology and then the new surgical plans took precedence. DVT PPx SCDs and defer chemical PPx to general surgery Code status full code Time-Based Coding :: [TOTAL MINUTES] spent with patient and on the chart (including review of chart, obtaining history, exam, reviewing outside data, placing orders, documenting exam and treatment plan, and counseling patient) on [DATE].
--- NOTE | 2024-12-14 08:20 | DIET.PN1 ---
Dietary Progress Note Assessment: Pt now NPO r/t to high output fistula. Starting TPN. TPN reccs below. Prior to today for last 3-4 days has been consistently doing 2-3 Ensures plus minimal PO intakes of food. Spoke to pharmacy on starting rate and labs in rounds. Ht: 149.86 cm Wt: 68.039 kg BMI: 30.2 UBW: 71.214 kg on 10/10/24 (-4.5% loss within 2 months, non-severe) 69.5 kg 2-3 weeks ago per pt (-2% weight loss within 1 month, non-severe) Last BM: 12/13/24 (12/13/24 08:30) MNA: 10 Avinash Score: 17 Diet: 12/13/24 16:29 NPO Diet Diet Modifications: NPO Type: NPO except for Meds Nutrition Percent Meal Consumed 50% 12/13/24 08:00 Percent Meal Consumed 50% 12/12/24 18:00 Labs: RBC 2.94 X10^6/uL (4.0-5.2) L 12/14/24 05:40 Hgb 8.7 g/dL (12.0-16.0) L 12/14/24 05:40 Hct 25.8 % (36-46) L 12/14/24 05:40 Creatinine 0.55 mg/dL (0.52-1.04) 12/14/24 05:40 Lactate 1.4 mmol/L (0.7-2.1) 12/03/24 17:50 NT-Pro-B Natriuret Pep 379 pg/mL (<450) 12/06/24 07:02 Nutrition Diagnosis: Inadequate oral intake r/t alterations in GI structure/function aeb high output fistula, pt NPO Interventions: 1. Recc continuous TPN via PICC as follows: Day 1: 0.75 L Clinimix 5/20 starting at 31 mL/hr, if pt tolerates with no signs of refeeding syndrome, advance to day 2 Day 2: 1 L Clinimix 5/20 running at 42 mL/hr, if pt tolerates with no signs of refeeding syndrome, advance to day 3 Day 3: Goal rate of 1.5 L Clinimix 5/20 running at 62 mL/hr with 250 mL IVFE 3x/week. Goal rate Clinimix 5/20 plus IVFE provides 1534 kcals and 75 grams protein meeting 100% EER. 2. K+, Mg, and phos were drawn before start of TPN and within normal limits. Recc monitoring potassium, magnesium, and phos for first 3 days. Replete per pharmacy as needed. 3. Triglycerides were drawn before initiation of TPN this morning. Recc monitoring level once weekly. 4. Recc thiamin 100 mg for 5 days due to moderate risk for refeeding EER: [id number] kcals (MSJ x1.2-1.4 per s/p surgery and fistula, per BMI) 75-90 g protein (1.2-1.5 g protein/kg s/p surgery) Monitoring/Evaluations: TPN start, labs, rate Electronically Signed by: Jocelyn Hinds 12/14/24 08:20 Clinical Dietitian [address] [id number]
--- NOTE | 2024-12-14 08:40 | PT-IP ANOTE ---
Confirmed fistula formation at femoral hernia site and to undergo surgery today. Will d/c PT and will need new orders post-op. Thank you.
[2024-12-14] MEDS: FLUTICASONE 120 SPRAY/16 GM SPRAY.SUSP NASAL ×2 (08:53→21:41)
[2024-12-14] MEDS: SODIUM CHLORIDE 0.9% FLUSH 10 ML IV ×2 (08:57→21:43)
[2024-12-14] MEDS: FUROSEMIDE 40 MG TABLET PO ×2 (09:10→17:13)
[2024-12-14] MEDS: OCTREOTIDE 100 MCG/ML VIAL SUBCUT ×3 (09:10→21:42)
--- NOTE | 2024-12-14 09:27 | OT.IPNOTE ---
Pt to have sx today, therefore discharge OT eval orders.
[2024-12-14 09:56] LABS: Magnesium 2.2 mg/dL (1.6-2.3); Phosphorous 3.1 mg/dL (2.8-4.1); Triglycerides 76 mg/dL (35-150)
--- NOTE | 2024-12-14 10:22 | CM.DPC ---
DCP Cont. Reviewed EMR and team rounds for status updates. Pt will need surgery today due to new stool coming through her wound vac. Called [facility] and cancelled her admission today, will update SV once we have a new estimated d/c date.
[2024-12-14] MEDS: LACTATED RINGERS 1,000 ML 42 ML IV (12:06)
[2024-12-14] MEDS: BUPIVACAINE 0.5% W/ EPI (PF) 30 ML VIAL INJ (12:57)
[2024-12-14] MEDS: BUPIVACAINE LIPOSOME 266 MG/20 ML VIAL INJ (13:00)
--- NOTE | 2024-12-14 14:22 | PM.OP.1 ---
Operative Date/Time/Diagnoses Date of procedure: 12/14/24 Time of procedure: 14:22 Pre-op diagnosis: Enterocutaneous Fistula Post-op diagnosis: same Procedure & Clinicians Procedure: 1. Laparotomy with small-bowel resection 2. Exchange of wound VAC Same procedure as scheduled: Yes Indications: Patient underwent small bowel resection for strangulated femoral hernia or 10 days ago. She developed an enterocutaneous fistula became high output and difficult to contained. Surgeon: Fuad Casanova Yes if Unassisted: Yes Anesthesia Type: General Operative Notes Findings: Localized enterocutaneous fistula to right groin from the previous anastomosis, no gross contamination of the rest of the abdomen. Closure Type: non-primary (Wound VAC placed to right groin, midline stapled) Specimen(s): other (Segment of ileum with anastomosis) Estimated Blood Loss (mL): 50 Blood products transfused: none Procedure in detail: Patient was brought to the operating room suite. Abdomen was prepped with Betadine after induction of general anesthesia. Orogastric tube was placed. Previous wound VAC was removed. Combination of Exparel and 0.5% Marcaine was used to perform bilateral transversus abdominis plane blocks, field blocks and rectus blocks. Midline laparotomy was performed and the abdomen was entered. There was not gross contamination of the abdomen. The anastomotic failure seemed to be staple line leak between 2 kathleen along the common enterotomy.. Blunt dissection was used to free up the right lower quadrant enterocutaneous fistula from the previous anastomosis site. Healthy proximal and distal bowel was identified and 75 mm stapler was fired across the proximal and distal to the anastomosis. LigaSure was used to carry across the mesentery. After resection the total length of remaining bowel was greater than 200 cm without any concern for short gut. A [id number] functional end-to-end anti-peristaltic anastomosis was made with 4 fires of the 75 mm stapler. The anastomosis was in the ileum approximately 80 cm from the ileocecal valve. Sigmoid colon was inspected there was probably some evidence of previous diverticulitis with adhesions to the omentum. These omental adhesions were freed up to prevent any undue tension on the anastomosis. The abdomen was copiously irrigated and suctioned free.as placed in the pelvis and brought out through the left lower quadrant. Drain was placed across the upper abdomen and right pericolic gutter and brought out through the left upper quadrant. The drain location was selected to stay away from the wound VAC. midline was closed with running 2-0 PDS. Skin was closed with kathleen. New wound VAC was applied to the right lower quadrant and good suction was achieved. Complications: none Post-operative Condition: stable Disposition: PACU Plan for aftercare: TPN, IV antibiotics x 4 days
--- NOTE | 2024-12-14 14:30 | P.PN_ITS ---
Subjective Subjective Date Patient Seen: 12/14/24 Time Patient Seen: 14:30 Interval history: Patient underwent re-resection of the anastomosis. There was not gross contamination within the abdomen. Wound VAC was replaced the right groin. Exam Vital Signs (past 8 hours): - 12/14/24 08:00 12/14/24 11:59 Temperature 96.7 F L 98.6 F Pulse Rate 78 77 Respiratory Rate 20 15 Blood Pressure 108/44 L 136/77 Pulse Oximetry 94 96 Oxygen Delivery Method Room Air Oxygen Flow Rate 0 Fraction of Inspired Oxygen 28 SaO2/FiO2 Ratio 328 Oxygen Delivery Method Room Air Oxygen Flow Rate 0 Narrative Exam Narrative: Midline laparotomyWith kathleen 2 left-sided drains, inferior drain to the pelvis, superior drain across the upper abdomen to the right pericolic gutter Wound VAC on the wound measuring 4 cm x 9 cm Objective Labs 12/14/24 05:40 12/14/24 05:40 Labs: Laboratory Results - last 24 hr 12/14/24 05:40 WBC 10.8 RBC 2.94 L Hgb 8.7 L Hct 25.8 L MCV 87.8 MCH 29.7 MCHC 33.8 RDW 15.6 H Plt Count 540 H Neut % (Auto) 86.4 H Lymph % (Auto) 5.7 L [place] % (Auto) 5.8 Eos % (Auto) 1.5 L Baso % (Auto) 0.6 Neut # (Auto) 9300 H Lymph # (Auto) 600 L [place] # (Auto) 600 Eos # (Auto) 200 Baso # (Auto) 100 Sodium 127 L Potassium 4.5 Chloride 95 L Carbon Dioxide 30 BUN 12 Creatinine 0.55 Estimated GFR > 60 BUN/Creatinine Ratio 21.8 Glucose 116 H Calcium 7.4 L Phosphorus 3.1 Magnesium 2.2 Triglycerides 76 [facility] Medical History History of COVID-19 (05/2024) Hiatal hernia Serum sodium decreased Encounter for subsequent annual wellness visit (AWV) in Medicare patient Vision disorder Rosacea Shoulder pain (~2014) Foot pain Measles Chicken pox (~1949) Hearing loss (~2021) Cataracts, bilateral (~2014) History of urinary incontinence Neutropenia 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 Allergic rhinitis Osteoarthritis (~1997) Obstructive sleep apnea of adult Primary insomnia Lichen sclerosus et atrophicus Vitamin D deficiency Chronic cough Osteopenia HTN (hypertension) (~2009) Hyperlipidemia Surgical History 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) Hx of LASIK Anesthesia History of hand surgery (~2022) History of breast mammoplasty S/P foot surgery, right S/P UVPP (uvulopalatopharyngoplasty) Hx of bilateral breast reduction surgery S/P trigger finger release History of facelift Hx of bladder repair surgery Hx of partial thyroidectomy Hx of partial thyroidectomy Family History Mother Heart attack Brother History of heart disease Social History household members: none occupational status: previously employed Smoking Status: Never smoker alcohol intake: current substance use type: does not use Assessment & Plan Post-op Postoperative Procedures: Procedures Operation Date: 12/03/24 22:15 Actual Procedure Side Surgeon p Hernia Repair - Inguinal, small bowel resection Right Fuad Singh MD Operation Date: 12/14/24 12:30 Actual Procedure Side Surgeon p Laparotomy, wound vac exchange, SMALL BOWEL RESECTION Fuad Singh MD Postoperative day: 0 Postoperative status narrative: 1. TPN and calorie counts on full liquid diet with protein supplements; repeat pre-albumin every 4 days 2. Monitor drain outputs and wound VAC. Time Spent With Patient Time with patient: Greater than 35 minutes
[2024-12-14] MEDS: SODIUM CHLORIDE 0.9% 1,000 ML 45 ML IV (15:17)
[2024-12-14 15:18] LABS: Alanine Aminotransferase 21 IU/L (<35); Albumin 2.6 g/dL (3.5-5.0); Alkaline Phosphatase 94 U/L (38-126); Aspartate Aminotransferase 43 IU/L (14-36); BUN Creatinine Ratio 18.6 (6-22); Bilirubin Total 0.3 mg/dL (0.2-1.3); Blood Urea Nitrogen 11 mg/dL (7-17); Calcium 7.6 mg/dL (8.4-10.2); Carbon Dioxide 28 mmol/L (22-32); Chloride 94 mmol/L (98-107); Estimated Glomerular Filt Rate > 60 mL/min (>60); Globulin 2.7 g/dL (1.7-4.1); Glucose 150 mg/dL (80-110); HEMOLYSIS 15 (0-50); Sodium 127 mmol/L (137-145); Total Protein 5.3 g/dL (6.3-8.2)
[2024-12-14] MEDS: HYDROCODONE/ACET 5/325 TABLET 1 TAB PO (16:17)
[2024-12-14] MEDS: MULTIVITAMIN IV (18:04)
[2024-12-14] MEDS: LYTES IV (18:04)
[2024-12-14] MEDS: DEXT IV (18:04)
[2024-12-14] MEDS: CALCIUM IV (18:04)
[2024-12-14] MEDS: [UNRECOGNIZED DRUG - OTHER] IV (18:04)
[2024-12-14] MEDS: TRACE ELEMENTS IV (18:04)
[2024-12-14 21:09] LABS: Prealbumin 8.8 mg/dL (17.6-36.0)
[2024-12-14] MEDS: ACETAMINOPHEN 325 MG TABLET 650 MG PO (21:41)
[2024-12-14] MEDS: ASPIRIN EC 81 MG TABLET PO (21:42)
[2024-12-14] MEDS: ATORVASTATIN 20 MG TABLET 10 MG PO (21:42)
[2024-12-15] VITALS (11 sets, daily range): BP systolic 87–116; BP diastolic 45–59; PULSE 86–99; RESP 16–22; TEMP 36.1–36.4; O2SAT 95–96
[2024-12-15] MEDS: SODIUM CHLORIDE 0.9% 1,000 ML 45 ML IV ×2 (00:54→15:44)
[2024-12-15] MEDS: SODIUM CHLORIDE 0.9% 500 ML 1000 ML IV (01:26)
[2024-12-15] MEDS: INSULIN LISPRO 100 UNIT/ML 3ML VIAL SUBCUT (01:55)
[2024-12-15] MEDS: PIPERACILLIN/TAZO 3.375 GM in SODIUM CHLORIDE 0.9% 100 ML IV ×3 (04:31→21:06)
[2024-12-15] MEDS: SODIUM CHLORIDE 0.9% 500 ML IV ×2 (04:38→05:59)
[2024-12-15 05:04] LABS: Hematocrit 29.8 % (36-46); Hemoglobin 9.7 g/dL (12.0-16.0); Mean Corpuscular HGB Conc 32.5 % (30-36); Mean Corpuscular Hemoglobin 28.8 PG (26-34); Mean Corpuscular Volume 88.7 fL (80-100); Platelet Count 563 X10^3/uL (150-400); Red Blood Cell Count 3.36 X10^6/uL (4.0-5.2); Red Cell Distribution Width 15.9 % (11.6-14.8); White Blood Cell Count 15.4 X10^3/uL (4.5-11.0)
[2024-12-15 05:18] LABS: Alanine Aminotransferase 22 IU/L (<35); Albumin 2.2 g/dL (3.5-5.0); Albumin Globulin Ratio 0.9 (1.0-2.8); Alkaline Phosphatase 63 U/L (38-126); Aspartate Aminotransferase 32 IU/L (14-36); BUN Creatinine Ratio 20.3 (6-22); Bilirubin Total 0.2 mg/dL (0.2-1.3); Blood Urea Nitrogen 16 mg/dL (7-17); Carbon Dioxide 25 mmol/L (22-32); Chloride 95 mmol/L (98-107); Estimated Glomerular Filt Rate > 60 mL/min (>60); Globulin 2.4 g/dL (1.7-4.1); Glucose 182 mg/dL (80-110); HEMOLYSIS < 15 (0-50); Magnesium 1.8 mg/dL (1.6-2.3); Phosphorous 3.4 mg/dL (2.8-4.1); Sodium 125 mmol/L (137-145); Total Protein 4.6 g/dL (6.3-8.2)
[2024-12-15] MEDS: LEVOTHYROXINE 100 MCG TABLET PO (06:17)
[2024-12-15] MEDS: HEPARIN 5,000 UNIT/ML VIAL 5000 UNIT SUBCUT ×3 (06:18→21:27)
[2024-12-15] MEDS: PANTOPRAZOLE DR 40 MG TABLET PO (06:18)
--- NOTE | 2024-12-15 06:52 | PC.NURSE ---
shift boss: Patient hypotensive overnight (documented VS), notified MD Robbins, x3 500cc NS boluses ordered and given overnight (see MAR). Patient is AxOx4, denies dizziness, nausea, SOB. Patient states she is tired and not ready to get OOB yet, will work with PT later. Abdominal dressings CDI, wound vac in place suctioning dark brown/red fluid, x2 INDU drains with 20-30cc serosanguinous fluid output. Bowel tones hypoactive, tolerating PO fluid intake fairly well with some mild reflux. Lara in place. Pain controlled w/ tylenol. Oriented to call-light, plan of care ongoing.
--- NOTE | 2024-12-15 07:58 | PM.PN.1 ---
Subjective Subjective Interval history: Summary: She presented with evidence of an anterior cutaneous fistula. She underwent a limited small-bowel resection on December 14 with primary anastomosis. In the postoperative. She was doing well but did have site hypotension overnight. She was multiple drains and a wound VAC in place in the postoperative phase. There was no gross contamination within the abdomen identified operatively. S: She feels better today. She was not lightheaded. Her abdominal pain is controlled with Tylenol. She was eating small amounts at a time and having some belching. No vomiting. No flatus. Her abdomen is not distended. She denies any shortness a breath. She does note some dysphagia symptoms, these are relatively new. She describes having a tight feeling lower in her chest at this time when it started out at the top of her chest. Exam Vital Signs (past 8 hours): - 12/15/24 00:00 12/15/24 01:06 12/15/24 02:00 Temperature 97.1 F L Pulse Rate 99 H 99 H 94 H Respiratory Rate 16 Blood Pressure 88/47 L 94/47 L 97/52 L Pulse Oximetry 95 12/15/24 04:54 12/15/24 05:47 12/15/24 06:27 Temperature 96.9 F L Pulse Rate 92 H 89 86 Respiratory Rate 17 Blood Pressure 87/45 L 96/48 L 103/51 L Pulse Oximetry 96 Fraction of Inspired Oxygen 28 SaO2/FiO2 Ratio 328 Oxygen Delivery Method Nasal Cannula,CPAP Oxygen Flow Rate 2 Narrative Exam Narrative: NAD, alert and oriented. Fluent speech. Lungs are clear, normal rate and effort. Heart is regular, no murmur gallop or rub. Abdomen is soft, non distended. Hypoactive bowel tones, multiple drains, a midline wound dressing, and a groin wound VAC. Extremities are free of edema. Objective Labs 12/15/24 04:16 12/15/24 04:16 Labs: Laboratory Results - last 24 hr 12/14/24 12/14/24 12/14/24 05:40 14:50 20:40 WBC RBC Hgb Hct MCV MCH MCHC RDW Plt Count Sodium 127 L Potassium 4.0 Chloride 94 L Carbon Dioxide 28 BUN 11 Creatinine 0.59 Estimated GFR > 60 BUN/Creatinine Ratio 18.6 Glucose 150 H Calcium 7.6 L Phosphorus 3.1 Magnesium 2.2 Total Bilirubin 0.3 AST 43 H ALT 21 Alkaline Phosphatase 94 Total Protein 5.3 L Albumin 2.6 L Globulin 2.7 Albumin/Globulin Ratio 1.0 Prealbumin 8.8 L Triglycerides 76 12/15/24 04:16 WBC 15.4 H RBC 3.36 L Hgb 9.7 L Hct 29.8 L MCV 88.7 MCH 28.8 MCHC 32.5 RDW 15.9 H Plt Count 563 H Sodium 125 L Potassium 4.0 Chloride 95 L Carbon Dioxide 25 BUN 16 Creatinine 0.79 Estimated GFR > 60 BUN/Creatinine Ratio 20.3 Glucose 182 H Calcium 7.0 L Phosphorus 3.4 Magnesium 1.8 Total Bilirubin 0.2 AST 32 ALT 22 Alkaline Phosphatase 63 Total Protein 4.6 L Albumin 2.2 L Globulin 2.4 Albumin/Globulin Ratio 0.9 L Prealbumin Triglycerides [facility] Medical History History of COVID-19 (05/2024) Hiatal hernia Serum sodium decreased Encounter for subsequent annual wellness visit (AWV) in Medicare patient Vision disorder Rosacea Shoulder pain (~2014) Foot pain Measles Chicken pox (~1949) Hearing loss (~2021) Cataracts, bilateral (~2014) History of urinary incontinence Neutropenia 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 Allergic rhinitis Osteoarthritis (~1997) Obstructive sleep apnea of adult Primary insomnia Lichen sclerosus et atrophicus Vitamin D deficiency Chronic cough Osteopenia HTN (hypertension) (~2009) Hyperlipidemia Surgical History 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) Hx of LASIK Anesthesia History of hand surgery (~2022) History of breast mammoplasty S/P foot surgery, right S/P UVPP (uvulopalatopharyngoplasty) Hx of bilateral breast reduction surgery S/P trigger finger release History of facelift Hx of bladder repair surgery Hx of partial thyroidectomy Hx of partial thyroidectomy Family History Mother Heart attack Brother History of heart disease Social History household members: none occupational status: previously employed Smoking Status: Never smoker alcohol intake: current substance use type: does not use Assessment & Plan Assessment & Plan narrative: 1. Incarcerated femoral hernia. S/P Strangulated femoral hernia (Gangrenous small bowel with perforation). Small bowel resection with anastomosis, open repair of right femoral hernia on 12/03/24. 12/13/2024 confirmed fistula formation at the femoral hernia repair site, now pending resection of the fistula, potential ileostomy 12/14. Status post resection of small bowel with primary anastomosis 12/14. 2. Acute blood loss anemia, present on admission stable. -Postop hgb 9.1, follow. 3. Hypokalemia, improved. 4. Hyponatremic hypovolemia. Active. 5. Hypothyroidism. Stable. 6. HTN. Stable. 7. Hypomagnesemia, improved. -Mg 1.5 on 12/05/24. Supplemented IV X 1 and up to 2.5 on 12/06/24. -Starting on TPN on 12/14/24 8. HLD. Stable. 9. Dysphagia, improved. -reported on 12/12. She points at her lower neck and mentions slow movement of food after swallowing. -likely to need EGD as outpatient. Ordered esophagram but there was no inhouse radiology and then the new surgical plans took precedence. 10. Hypotension overnight, new and improved. -was given fluids with improvement of pressure. PLAN: She was doing well with slow progression. We will continue antibiotics, slow advance of diet. Continue protein shakes. She also has interval TPN support which will continue. Monitor dysphagia symptoms. We will advance activity as tolerated as well. KIANA: 12/18. DVT PPx SCDs and defer chemical PPx to general surgery Code status full code Time-Based Coding :: [TOTAL MINUTES] spent with patient and on the chart (including review of chart, obtaining history, exam, reviewing outside data, placing orders, documenting exam and treatment plan, and counseling patient) on [DATE].
--- NOTE | 2024-12-15 08:26 | PM.PNPO.1 ---
Subjective Subjective Date Patient Seen: 12/15/24 Time Patient Seen: 08:26 Interval history: POD# 1 and 12, small bowel resections, and now wound vac, in her right groin, I read dietitian's note, and EXCELLENT plan of action, with TPN. Exam very good, except for the still red RIght inguinal incision, On Zosyn, continue. Prtoein shakes 25 gm each, with every meal, she is VERY GOOD PATIENT, and understands the importance of protein, and is drinking them. Exam Vital Signs (past 8 hours): - 12/15/24 01:06 12/15/24 02:00 12/15/24 04:54 Temperature 96.9 F L Pulse Rate 99 H 94 H 92 H Respiratory Rate 17 Blood Pressure 94/47 L 97/52 L 87/45 L Pulse Oximetry 96 12/15/24 05:47 12/15/24 06:27 Temperature Pulse Rate 89 86 Respiratory Rate Blood Pressure 96/48 L 103/51 L Pulse Oximetry Fraction of Inspired Oxygen 28 SaO2/FiO2 Ratio 328 Oxygen Delivery Method Nasal Cannula,CPAP Oxygen Flow Rate 2 Narrative Exam Narrative: Red right groin incision, wound vac is on, drains both serosanguinous, NO succus, no leaks. Objective Labs 12/15/24 04:16 12/15/24 04:16 Labs: Laboratory Results - last 24 hr 12/14/24 12/14/24 12/14/24 05:40 14:50 20:40 WBC RBC Hgb Hct MCV MCH MCHC RDW Plt Count Sodium 127 L Potassium 4.0 Chloride 94 L Carbon Dioxide 28 BUN 11 Creatinine 0.59 Estimated GFR > 60 BUN/Creatinine Ratio 18.6 Glucose 150 H Calcium 7.6 L Phosphorus 3.1 Magnesium 2.2 Total Bilirubin 0.3 AST 43 H ALT 21 Alkaline Phosphatase 94 Total Protein 5.3 L Albumin 2.6 L Globulin 2.7 Albumin/Globulin Ratio 1.0 Prealbumin 8.8 L Triglycerides 76 12/15/24 04:16 WBC 15.4 H RBC 3.36 L Hgb 9.7 L Hct 29.8 L MCV 88.7 MCH 28.8 MCHC 32.5 RDW 15.9 H Plt Count 563 H Sodium 125 L Potassium 4.0 Chloride 95 L Carbon Dioxide 25 BUN 16 Creatinine 0.79 Estimated GFR > 60 BUN/Creatinine Ratio 20.3 Glucose 182 H Calcium 7.0 L Phosphorus 3.4 Magnesium 1.8 Total Bilirubin 0.2 AST 32 ALT 22 Alkaline Phosphatase 63 Total Protein 4.6 L Albumin 2.2 L Globulin 2.4 Albumin/Globulin Ratio 0.9 L Prealbumin Triglycerides [facility] Medical History History of COVID-19 (05/2024) Hiatal hernia Serum sodium decreased Encounter for subsequent annual wellness visit (AWV) in Medicare patient Vision disorder Rosacea Shoulder pain (~2014) Foot pain Measles Chicken pox (~1949) Hearing loss (~2021) Cataracts, bilateral (~2014) History of urinary incontinence Neutropenia 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 Allergic rhinitis Osteoarthritis (~1997) Obstructive sleep apnea of adult Primary insomnia Lichen sclerosus et atrophicus Vitamin D deficiency Chronic cough Osteopenia HTN (hypertension) (~2009) Hyperlipidemia Surgical History 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) Hx of LASIK Anesthesia History of hand surgery (~2022) History of breast mammoplasty S/P foot surgery, right S/P UVPP (uvulopalatopharyngoplasty) Hx of bilateral breast reduction surgery S/P trigger finger release History of facelift Hx of bladder repair surgery Hx of partial thyroidectomy Hx of partial thyroidectomy Family History Mother Heart attack Brother History of heart disease Social History household members: none occupational status: previously employed Smoking Status: Never smoker alcohol intake: current substance use type: does not use Assessment & Plan Post-op Postoperative Procedures: Procedures Operation Date: 12/03/24 22:15 Actual Procedure Side Surgeon p Hernia Repair - Inguinal, small bowel resection Right Fuad Singh MD Operation Date: 12/14/24 12:30 Actual Procedure Side Surgeon p Laparotomy, wound vac exchange, SMALL BOWEL RESECTION Fuad Singh MD Postoperative status narrative: POD# 1 and 12, small bowel resections, and now wound vac, in her right groin, I read dietitian's note, and EXCELLENT plan of action, with TPN. Exam very good, except for the still red RIght inguinal incision, On Zosyn, continue. Prtoein shakes 25 gm each, with every meal, she is VERY GOOD PATIENT, and understands the importance of protein, and is drinking them.
[2024-12-15] MEDS: ASPIRIN EC 81 MG TABLET PO ×2 (09:23→21:06)
[2024-12-15] MEDS: FUROSEMIDE 40 MG TABLET PO ×2 (09:23→17:13)
[2024-12-15] MEDS: OCTREOTIDE 100 MCG/ML VIAL SUBCUT ×2 (09:23→15:13)
[2024-12-15] MEDS: FLUTICASONE 120 SPRAY/16 GM SPRAY.SUSP NASAL ×2 (09:24→21:01)
[2024-12-15] MEDS: ACETAMINOPHEN 325 MG TABLET 650 MG PO ×2 (09:31→21:21)
--- NOTE | 2024-12-15 11:00 | DIET.PN1 ---
Dietary Progress Note Assessment: RD f/u K+, Mg, phos within normal limits, advancing TPN to day 2 of 1 L Clinimix. Spoke to pharmacist who reports that surgeon ordered TPN despite pt tolerating full liquids d/t suspecting that patient is not absorbing nutritional intake through the gut. Thus, will plan to meet estimated energy and protein needs via TPN until d/c by surgery. Surgery ordered and encouraged patient intake of Ensure max protein TID in addition to TPN. With TPN goal rate and Ensure max, patient getting 165 g protein, exceeding estimated needs (185% of protein needs). However, surgery suspect pt not absorbing nutritional intake through the gut. Spoke to pharmacy to continue monitoring kidney in liver function via labs and will re-eval TPN/ONS options as needed. Patient expressing those drinks are all she wants on the trays. Patient anxious about drinking adequate protein and prefers only the Ensure max per surgery recc. Assured patient that protein needs are meet through TPN. Ht: 149.86 cm Wt: 68.039 kg BMI: 30.2 Last BM: 12/13/24 (12/14/24 11:59) MNA: 10 Avinash Score: 17 Diet: 12/14/24 Dinner Full Liquid Diet Diet Modifications: Labs: RBC 3.36 X10^6/uL (4.0-5.2) L 12/15/24 04:16 Hgb 9.7 g/dL (12.0-16.0) L 12/15/24 04:16 Hct 29.8 % (36-46) L 12/15/24 04:16 Creatinine 0.79 mg/dL (0.52-1.04) 12/15/24 04:16 Lactate 1.4 mmol/L (0.7-2.1) 12/03/24 17:50 NT-Pro-B Natriuret Pep 379 pg/mL (<450) 12/06/24 07:02 Electronically Signed by: Jocelyn Hinds 12/15/24 11:00 Clinical Dietitian [address] [id number]
[2024-12-15] MEDS: SIMETHICONE 80 MG TABLET PO ×2 (12:27→21:21)
--- NOTE | 2024-12-15 12:43 | CM.DPC ---
DCP Continued: Reviewed EMR and team rounds for pt?s medical status. Pt to start TPN 12/15/24 and still requiring SNF as discharge plan. DCP confirmed with [facility] that pt is slotted for 12/17 admission, time pending. Plan: Pending discharge on Wednesday, 12/17, to [facility], if medically cleared. CM Team will continue to follow for coordination of discharge plans. VIKTOR ReesSW
[2024-12-15] MEDS: AA 5 %/CALCIUM/LYTES/DEXT 20 % 1,000 ML with MULTIVITAMIN 10 ML, TRACE ELEMENTS 1 ML, T... 42.25 ML IV (18:12)
[2024-12-15] MEDS: FAT EMULSIONS 50 GM/250 ML EMULSION IV (18:12)
[2024-12-15] MEDS: ATORVASTATIN 20 MG TABLET 10 MG PO (21:05)
[2024-12-15] MEDS: PANTOPRAZOLE 40 MG VIAL IV (21:05)
[2024-12-15] MEDS: SODIUM CHLORIDE 0.9% FLUSH 10 ML IV (21:09)
[2024-12-16] MEDS: PIPERACILLIN/TAZO 3.375 GM in SODIUM CHLORIDE 0.9% 100 ML IV ×3 (05:00→21:23)
[2024-12-16 05:33] LABS: Alanine Aminotransferase 17 IU/L (<35); Albumin 2.2 g/dL (3.5-5.0); Albumin Globulin Ratio 0.8 (1.0-2.8); Alkaline Phosphatase 61 U/L (38-126); Aspartate Aminotransferase 26 IU/L (14-36); BUN Creatinine Ratio 28.6 (6-22); Bilirubin Total 0.1 mg/dL (0.2-1.3); Blood Urea Nitrogen 18 mg/dL (7-17); Calcium 6.6 mg/dL (8.4-10.2); Carbon Dioxide 28 mmol/L (22-32); Chloride 95 mmol/L (98-107); Estimated Glomerular Filt Rate > 60 mL/min (>60); Globulin 2.6 g/dL (1.7-4.1); Glucose 145 mg/dL (80-110); HEMOLYSIS < 15 (0-50); Magnesium 1.7 mg/dL (1.6-2.3); Phosphorous 2.4 mg/dL (2.8-4.1); Potassium 2.9 mmol/L (3.4-5.1); Sodium 127 mmol/L (137-145); Total Protein 4.8 g/dL (6.3-8.2)
[2024-12-16] MEDS: PANTOPRAZOLE DR 40 MG TABLET PO (06:30)
[2024-12-16] MEDS: LEVOTHYROXINE 100 MCG TABLET PO (06:30)
[2024-12-16] MEDS: HEPARIN 5,000 UNIT/ML VIAL 5000 UNIT SUBCUT ×3 (06:30→21:22)
[2024-12-16 07:00] VITALS: BP 135/59; PULSE 80; RESP 18; TEMP 36.2; O2SAT 92
[2024-12-16] MEDS: FUROSEMIDE 40 MG TABLET PO ×2 (08:21→17:53)
[2024-12-16] MEDS: MAGNESIUM HYDROXIDE 30 ML UDC PO (09:09)
[2024-12-16] MEDS: ASPIRIN EC 81 MG TABLET PO ×2 (09:09→21:23)
[2024-12-16] MEDS: FLUTICASONE 120 SPRAY/16 GM SPRAY.SUSP NASAL ×2 (09:09→21:23)
[2024-12-16] MEDS: PANTOPRAZOLE 40 MG VIAL IV ×2 (09:10→21:22)
[2024-12-16] MEDS: SODIUM CHLORIDE 0.9% FLUSH 10 ML IV ×2 (09:12→21:23)
--- NOTE | 2024-12-16 10:56 | PC.NURSE ---
Pt alert and oriented, directive of care, follows commands, up to chair with some assist due to IV and landis Pt offers no overt c/o pain. Up tho chair for b'fast.
[2024-12-16] MEDS: POTASSIUM CHLORIDE IN WATER 10 MEQ/100 ML PIGGYBACK 100 MEQ IV ×6 (12:06→23:08)
--- NOTE | 2024-12-16 12:16 | PM.PNPO.1 ---
Subjective Subjective Date Patient Seen: 12/16/24 Time Patient Seen: 12:16 Exam Vital Signs (past 8 hours): - 12/16/24 07:00 Temperature 97.1 F L Pulse Rate 80 Respiratory Rate 18 Blood Pressure 135/59 L Pulse Oximetry 92 Oxygen Flow Rate 0 Fraction of Inspired Oxygen 28 SaO2/FiO2 Ratio 328 Oxygen Delivery Method Nasal Cannula,CPAP Oxygen Flow Rate 0 Narrative Exam Narrative: Her right groin erythema is improving..? Eating protein, and on Protein in TPN, will follow. Objective Labs 12/15/24 04:16 12/16/24 04:38 Labs: Laboratory Results - last 24 hr 12/16/24 04:38 Sodium 127 L Potassium 2.9 L Chloride 95 L Carbon Dioxide 28 BUN 18 H Creatinine 0.63 Estimated GFR > 60 BUN/Creatinine Ratio 28.6 H Glucose 145 H Calcium 6.6 L Phosphorus 2.4 L D Magnesium 1.7 Total Bilirubin 0.1 L AST 26 ALT 17 Alkaline Phosphatase 61 Total Protein 4.8 L Albumin 2.2 L Globulin 2.6 Albumin/Globulin Ratio 0.8 L [facility] Medical History History of COVID-19 (05/2024) Hiatal hernia Serum sodium decreased Encounter for subsequent annual wellness visit (AWV) in Medicare patient Vision disorder Rosacea Shoulder pain (~2014) Foot pain Measles Chicken pox (~1949) Hearing loss (~2021) Cataracts, bilateral (~2014) History of urinary incontinence Neutropenia 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 Allergic rhinitis Osteoarthritis (~1997) Obstructive sleep apnea of adult Primary insomnia Lichen sclerosus et atrophicus Vitamin D deficiency Chronic cough Osteopenia HTN (hypertension) (~2009) Hyperlipidemia Surgical History 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) Hx of LASIK Anesthesia History of hand surgery (~2022) History of breast mammoplasty S/P foot surgery, right S/P UVPP (uvulopalatopharyngoplasty) Hx of bilateral breast reduction surgery S/P trigger finger release History of facelift Hx of bladder repair surgery Hx of partial thyroidectomy Hx of partial thyroidectomy Family History Mother Heart attack Brother History of heart disease Social History household members: none occupational status: previously employed Smoking Status: Never smoker alcohol intake: current substance use type: does not use Assessment & Plan Post-op Postoperative Procedures: Procedures Operation Date: 12/03/24 22:15 Actual Procedure Side Surgeon p Hernia Repair - Inguinal, small bowel resection Right Fuad Singh MD Operation Date: 12/14/24 12:30 Actual Procedure Side Surgeon p Laparotomy, wound vac exchange, SMALL BOWEL RESECTION Fuad Singh MD Postoperative status narrative: Her right groin erythema is improving..? Eating protein, and on Protein in TPN, will follow.
--- NOTE | 2024-12-16 14:04 | CM.DPC ---
DCP SNF Planning: Per MD, pt continues currently on TPN for increased healing and nutrition and encouraging Ensure Protein drinks and continues with wound vac. PT/OT reordered since it was d/c'd for surgery. SW spoke to admissions at [facility] and confirmed they cannot accept pt on TPN and she will need to show she can tolerate 50-75% of her diet prior to safely accepting her. They are currently holding a bed for her. Plan: SW to follow closely for TPN to be discontinued and confirm she is tolerating her protein drinks before d/c to [facility]. PERLA Avalos
[2024-12-16] MEDS: INSULIN LISPRO 100 UNIT/ML 3ML VIAL SUBCUT (15:22)
[2024-12-16] MEDS: ACETAMINOPHEN 325 MG TABLET 650 MG PO ×2 (15:28→21:30)
[2024-12-16] MEDS: AA 5 %/CALCIUM/LYTES/DEXT 20 % 1,500 ML with MULTIVITAMIN 10 ML, TRACE ELEMENTS 1 ML, T... 63.292 ML IV (17:52)
--- NOTE | 2024-12-16 18:24 | P.PN_ITS ---
Subjective Subjective Interval history: 79 yo female w/hypothyroidism, HTN, HLD, GLORIA and LTKA for OA in September admitted w/incarcerated hernia 12/03/24.? She underwent small bowel resection w/open repair of right femora hernia on the day of admit.? She developed an enterocutaneous fistula post-op which had highout put that had been difficult to contain.? On 12/14 she returned to the OR for laparotomy with small bowel resection and wound vac exchange. Patient report she has been primarily drinking ensure protein. She is receiving TPN as well. Today, her surgeon had her eat a protein based ice cream. Since then, she states she has had a burning in her stomach every time she has tried to drink ensure. She was planning to try to in a salad mixed with a eggs for dinner tonight. However, she notes she has not had any solid food yet. Exam Vital Signs (past 8 hours): Fraction of Inspired Oxygen 28 SaO2/FiO2 Ratio 328 Oxygen Delivery Method Nasal Cannula,CPAP Oxygen Flow Rate 0 Narrative Exam Narrative: GEN: Alert and oriented x 3, NAD HEENT:NC, Face symmetric CHEST: Respiratory excursions symmetric, CTAB CV: RRR, no M/R/G ABD: Soft, diffuse tenderness/ND, BT present in all 4 quadrants EXTR: warm, well perfused, no C/C/E SKIN: warm and dry, no rash NEURO: Alert and oriented x 3, nonfocal Objective Labs 12/15/24 04:16 12/16/24 04:38 Labs: Laboratory Results - last 24 hr 12/16/24 04:38 Sodium 127 L Potassium 2.9 L Chloride 95 L Carbon Dioxide 28 BUN 18 H Creatinine 0.63 Estimated GFR > 60 BUN/Creatinine Ratio 28.6 H Glucose 145 H Calcium 6.6 L Phosphorus 2.4 L D Magnesium 1.7 Total Bilirubin 0.1 L AST 26 ALT 17 Alkaline Phosphatase 61 Total Protein 4.8 L Albumin 2.2 L Globulin 2.6 Albumin/Globulin Ratio 0.8 L [facility] Medical History History of COVID-19 (05/2024) Hiatal hernia Serum sodium decreased Encounter for subsequent annual wellness visit (AWV) in Medicare patient Vision disorder Rosacea Shoulder pain (~2014) Foot pain Measles Chicken pox (~1949) Hearing loss (~2021) Cataracts, bilateral (~2014) History of urinary incontinence Neutropenia 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 Allergic rhinitis Osteoarthritis (~1997) Obstructive sleep apnea of adult Primary insomnia Lichen sclerosus et atrophicus Vitamin D deficiency Chronic cough Osteopenia HTN (hypertension) (~2009) Hyperlipidemia Surgical History 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) Hx of LASIK Anesthesia History of hand surgery (~2022) History of breast mammoplasty S/P foot surgery, right S/P UVPP (uvulopalatopharyngoplasty) Hx of bilateral breast reduction surgery S/P trigger finger release History of facelift Hx of bladder repair surgery Hx of partial thyroidectomy Hx of partial thyroidectomy Family History Mother Heart attack Brother History of heart disease Social History household members: none occupational status: previously employed Smoking Status: Never smoker alcohol intake: current substance use type: does not use Assessment & Plan Assessment & Plan narrative: 1. Postoperative day 2. From small-bowel resection and wound VAC exchange for a high volume enterocutaneous fistula after initial small-bowel resection with open repair of right femoral hernia. Patient is slowly trying to advance her diet. She did not tolerate her protein base ice cream shake today. She is now having more trouble with drinking her ensure due to burning in her stomach when she drinks. She is also having that with water. I have encouraged her to hold off on additional intake today. 2. Acute blood loss anemia Hemoglobin was stable at 9.7 yesterday. Will repeat labs in the morning. 3. Electrolyte derangements including hypokalemia and hypophosphatemia Continue to replete with IV electrolyte replacement. This can not be addressed with the TPN as she is receiving premix Clinimax. 4. Hyponatremia Sodium is stable and slowly improving. Currently 127. 5. Hypothyroidism Continue levothyroxine 6. Hypertension Blood pressures are stable Code status Full Prophylaxis On b.i.d. aspirin 81 mg Disposition [facility], but can not be taken on TPN. She will not be able to discharge there until she is tolerating 50-75% of her diet. Time-Based Coding :: [TOTAL MINUTES] spent with patient and on the chart (including review of chart, obtaining history, exam, reviewing outside data, placing orders, documenting exam and treatment plan, and counseling patient) on [DATE].
[2024-12-16 20:00] VITALS: BP 120/57; PULSE 86; RESP 24; TEMP 36.6; O2SAT 96
[2024-12-16] MEDS: MAG HYDROX/ALUMINUM/SIMETH SUS 20 ML, LIDOCAINE VISCOUS 2% 15 ML PO (20:14)
[2024-12-16] MEDS: ATORVASTATIN 20 MG TABLET 10 MG PO (21:22)
[2024-12-16] MEDS: lisinopriL 10 MG TABLET PO (21:22)
--- NOTE | 2024-12-16 22:17 | PC.NURSE ---
Wound vac dressing leaking small amount of light colored, thin fluid around tegaderm. Reinforced with abd pad. Wound vac is working and draining fluid through tube. Both INDU dressing changed and applied drain sponge, CDI. Stat lock to landis changed, landis care complete. Will monitor.
[2024-12-17] MEDS: PIPERACILLIN/TAZO 3.375 GM in SODIUM CHLORIDE 0.9% 100 ML IV ×3 (04:48→20:33)
[2024-12-17 05:03] LABS: Add Manual Diff / Slide Review NO; Basophils Absolute Auto 0 /uL (0-100); Basophils Percent Auto 0.6 % (0-2); Eosinophils Absolute Auto 200 /uL (0-450); Eosinophils Percent Auto 2.5 % (2-4); Hematocrit 22.7 % (36-46); Hemoglobin 7.6 g/dL (12.0-16.0); Lymphocytes Absolute Auto 600 /uL (1100-4500); Mean Corpuscular HGB Conc 33.6 % (30-36); Mean Corpuscular Hemoglobin 29.6 PG (26-34); Mean Corpuscular Volume 88.1 fL (80-100); Monocytes Absolute Auto 600 /uL (0-900); Monocytes Percent Auto 8.7 % (3-14); Neutrophils Absolute Auto 5300 /uL (1500-7000); Neutrophils Percent Auto 79.2 % (50-75); Platelet Count 470 X10^3/uL (150-400); Red Blood Cell Count 2.58 X10^6/uL (4.0-5.2); Red Cell Distribution Width 15.6 % (11.6-14.8); White Blood Cell Count 6.7 X10^3/uL (4.5-11.0)
[2024-12-17 05:13] LABS: Alanine Aminotransferase 14 IU/L (<35); Albumin 2.3 g/dL (3.5-5.0); Albumin Globulin Ratio 0.9 (1.0-2.8); Alkaline Phosphatase 72 U/L (38-126); Aspartate Aminotransferase 28 IU/L (14-36); BUN Creatinine Ratio 33.9 (6-22); Bilirubin Total 0.2 mg/dL (0.2-1.3); Blood Urea Nitrogen 19 mg/dL (7-17); Carbon Dioxide 32 mmol/L (22-32); Chloride 94 mmol/L (98-107); Estimated Glomerular Filt Rate > 60 mL/min (>60); Globulin 2.6 g/dL (1.7-4.1); Glucose 132 mg/dL (80-110); HEMOLYSIS < 15 (0-50); Phosphorous 2.2 mg/dL (2.8-4.1); Potassium 3.3 mmol/L (3.4-5.1); Sodium 127 mmol/L (137-145); Total Protein 4.9 g/dL (6.3-8.2)
[2024-12-17] MEDS: HEPARIN 5,000 UNIT/ML VIAL 5000 UNIT SUBCUT ×3 (06:10→22:30)
[2024-12-17] MEDS: PANTOPRAZOLE DR 40 MG TABLET PO (06:11)
[2024-12-17] MEDS: LEVOTHYROXINE 100 MCG TABLET PO (06:11)
[2024-12-17 07:00] VITALS: BP 130/58; PULSE 77; RESP 18; TEMP 36.3; O2SAT 97
[2024-12-17] MEDS: POTASSIUM PHOSPHATE 15 MMOL in SODIUM CHLORIDE 0.9% 250 ML 127.5 MMOL IV (07:54)
[2024-12-17] MEDS: ACETAMINOPHEN 325 MG TABLET 650 MG PO ×2 (08:15→20:40)
[2024-12-17] MEDS: ASPIRIN EC 81 MG TABLET PO ×2 (09:36→20:37)
[2024-12-17] MEDS: FUROSEMIDE 40 MG TABLET PO ×2 (09:50→18:00)
[2024-12-17] MEDS: FLUTICASONE 120 SPRAY/16 GM SPRAY.SUSP NASAL ×2 (09:51→20:44)
[2024-12-17] MEDS: POTASSIUM CHLORIDE IN WATER 10 MEQ/100 ML PIGGYBACK 100 MEQ IV ×2 (09:56→11:21)
--- NOTE | 2024-12-17 09:58 | P.PN_ITS ---
Subjective Subjective Date Patient Seen: 12/17/24 Time Patient Seen: 09:58 Interval history: Wound vac changed today, wound nicely healing, purulent discharge noted, though.. and cleaned with betadine BEFORE applying the new wound vac, she tolerated everything very well, and will see her tomorrow. Exam Vital Signs (past 8 hours): Fraction of Inspired Oxygen 28 SaO2/FiO2 Ratio 328 Oxygen Delivery Method Room Air Oxygen Flow Rate 0 Objective Labs 12/17/24 04:43 12/17/24 04:43 Labs: Laboratory Results - last 24 hr 12/17/24 04:43 WBC 6.7 RBC 2.58 L Hgb 7.6 L Hct 22.7 L MCV 88.1 MCH 29.6 MCHC 33.6 RDW 15.6 H Plt Count 470 H Neut % (Auto) 79.2 H Lymph % (Auto) 9.0 L [place] % (Auto) 8.7 Eos % (Auto) 2.5 Baso % (Auto) 0.6 Neut # (Auto) 5300 Lymph # (Auto) 600 L [place] # (Auto) 600 Eos # (Auto) 200 Baso # (Auto) 0 Sodium 127 L Potassium 3.3 L Chloride 94 L Carbon Dioxide 32 BUN 19 H Creatinine 0.56 Estimated GFR > 60 BUN/Creatinine Ratio 33.9 H Glucose 132 H Calcium 7.0 L Phosphorus 2.2 L Magnesium 2.0 Total Bilirubin 0.2 AST 28 ALT 14 Alkaline Phosphatase 72 Total Protein 4.9 L Albumin 2.3 L Globulin 2.6 Albumin/Globulin Ratio 0.9 L [facility] Medical History History of COVID-19 (05/2024) Hiatal hernia Serum sodium decreased Encounter for subsequent annual wellness visit (AWV) in Medicare patient Vision disorder Rosacea Shoulder pain (~2014) Foot pain Measles Chicken pox (~1949) Hearing loss (~2021) Cataracts, bilateral (~2014) History of urinary incontinence Neutropenia 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 Allergic rhinitis Osteoarthritis (~1997) Obstructive sleep apnea of adult Primary insomnia Lichen sclerosus et atrophicus Vitamin D deficiency Chronic cough Osteopenia HTN (hypertension) (~2009) Hyperlipidemia Surgical History 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) Hx of LASIK Anesthesia History of hand surgery (~2022) History of breast mammoplasty S/P foot surgery, right S/P UVPP (uvulopalatopharyngoplasty) Hx of bilateral breast reduction surgery S/P trigger finger release History of facelift Hx of bladder repair surgery Hx of partial thyroidectomy Hx of partial thyroidectomy Family History Mother Heart attack Brother History of heart disease Social History household members: none occupational status: previously employed Smoking Status: Never smoker alcohol intake: current substance use type: does not use Assessment & Plan Post-op Postoperative Procedures: Procedures Operation Date: 12/03/24 22:15 Actual Procedure Side Surgeon p Hernia Repair - Inguinal, small bowel resection Right Fuad Singh MD Operation Date: 12/14/24 12:30 Actual Procedure Side Surgeon p Laparotomy, wound vac exchange, SMALL BOWEL RESECTION Fuad Singh MD Postoperative status narrative: Wound vac changed today, wound nicely healing, purulent discharge noted, though.. and cleaned with betadine BEFORE applying the new wound vac, she tolerated everything very well, and will see her tomorrow.
[2024-12-17] MEDS: SODIUM CHLORIDE 0.9% FLUSH 10 ML IV ×2 (10:00→20:38)
--- NOTE | 2024-12-17 11:08 | PT-IP ANOTE ---
New PT order put in after pt underwent a second abdominal surgery on 12/14/24: laparatomy and SB resection. Pt had wound vac changed this a.m. and she does not wish to do therapy today. Recommend OOB to chair with nsg as pt tolerates and will attempt re-eval next date.
[2024-12-17 12:56] LABS: Hematocrit 24.8 % (36-46); Hemoglobin 8.5 g/dL (12.0-16.0)
[2024-12-17] MEDS: INSULIN LISPRO 100 UNIT/ML 3ML VIAL SUBCUT (14:50)
--- NOTE | 2024-12-17 16:41 | PM.PN.1 ---
Subjective Subjective Interval history: 79 yo female w/hypothyroidism, HTN, HLD, GLORIA and LTKA for OA in September admitted w/incarcerated hernia 12/03/24.? She underwent small bowel resection w/open repair of right femora hernia on the day of admit.? She developed an enterocutaneous fistula post-op which had highout put that had been difficult to contain.? On 12/14 she returned to the OR for laparotomy with small bowel resection and wound vac exchange. Patient developed a burning pain in her lower chest/upper abdomen after eating an ice cream protein shake yesterday. It finally seemed to resolve last evening after she had a GI cocktail. She reports she had a good bowel movement this morning that was well formed. She subsequently had a loose 1 after that. She plans to just drink broth today after all of the discomfort she had yesterday. She states the surgeon told her she can eat whatever she wants. She denies any other new complaints today. She was able to get better sleep after her cares were clustered overnight. She is very pleased with that. Exam Vital Signs (past 8 hours): Fraction of Inspired Oxygen 28 SaO2/FiO2 Ratio 328 Oxygen Delivery Method Room Air Oxygen Flow Rate 0 Narrative Exam Narrative: GEN: Alert and oriented x 3, NAD HEENT:NC, Face symmetric CHEST: Respiratory excursions symmetric, CTAB CV: RRR, no M/R/G ABD: Soft, diffuse tenderness/ND, BT present in all 4 quadrants, 2 INDU is noted in the left mid quadrant, 1 with serosanguineous drainage and 1 with serous drainage EXTR: warm, well perfused, no C/C, 2+ bilateral lower extremity pitting edema SKIN: warm and dry, no rash NEURO: Alert and oriented x 3, nonfocal Objective Labs 12/17/24 12:42 12/17/24 04:43 Labs: Laboratory Results - last 24 hr 12/17/24 12/17/24 04:43 12:42 WBC 6.7 RBC 2.58 L Hgb 7.6 L 8.5 L Hct 22.7 L 24.8 L MCV 88.1 MCH 29.6 MCHC 33.6 RDW 15.6 H Plt Count 470 H Neut % (Auto) 79.2 H Lymph % (Auto) 9.0 L Lucas % (Auto) 8.7 Eos % (Auto) 2.5 Baso % (Auto) 0.6 Neut # (Auto) 5300 Lymph # (Auto) 600 L Lucas # (Auto) 600 Eos # (Auto) 200 Baso # (Auto) 0 Sodium 127 L Potassium 3.3 L Chloride 94 L Carbon Dioxide 32 BUN 19 H Creatinine 0.56 Estimated GFR > 60 BUN/Creatinine Ratio 33.9 H Glucose 132 H Calcium 7.0 L Phosphorus 2.2 L Magnesium 2.0 Total Bilirubin 0.2 AST 28 ALT 14 Alkaline Phosphatase 72 Total Protein 4.9 L Albumin 2.3 L Globulin 2.6 Albumin/Globulin Ratio 0.9 L [facility] Medical History History of COVID-19 (05/2024) Hiatal hernia Serum sodium decreased Encounter for subsequent annual wellness visit (AWV) in Medicare patient Vision disorder Rosacea Shoulder pain (~2014) Foot pain Measles Chicken pox (~1949) Hearing loss (~2021) Cataracts, bilateral (~2014) History of urinary incontinence Neutropenia 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 Allergic rhinitis Osteoarthritis (~1997) Obstructive sleep apnea of adult Primary insomnia Lichen sclerosus et atrophicus Vitamin D deficiency Chronic cough Osteopenia HTN (hypertension) (~2009) Hyperlipidemia Surgical History 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) Hx of LASIK Anesthesia History of hand surgery (~2022) History of breast mammoplasty S/P foot surgery, right S/P UVPP (uvulopalatopharyngoplasty) Hx of bilateral breast reduction surgery S/P trigger finger release History of facelift Hx of bladder repair surgery Hx of partial thyroidectomy Hx of partial thyroidectomy Family History Mother Heart attack Brother History of heart disease Social History household members: none occupational status: previously employed Smoking Status: Never smoker alcohol intake: current substance use type: does not use Assessment & Plan Assessment & Plan narrative: 1. Postoperative day #3 from small-bowel resection and wound VAC exchange for a high volume enterocutaneous fistula after initial small-bowel resection with open repair of right femoral hernia. Patient is slowly trying to advance her diet. She did not tolerate an ice-cream protein shakes yesterday. Today, she is trying just broth again. Plan to advanced diet as tolerated. She will not be able to go to intermediate facility until she is tolerating 50-75% of her diet, as they are unable to take the patient on TPN. She continues TPN for now. 2. Acute blood loss anemia Hemoglobin was stable at 9.7 on 12/15/2024. This morning's labs showed her hemoglobin at 7.6. I have no good reason for a drop 2 g. It may be hemodilutional, but with her burning abdominal pain yesterday, will recheck to ensure that her hemoglobin is stable. 3. Electrolyte derangements including hypokalemia and hypophosphatemia Continue to replete with IV electrolyte replacement. This can not be addressed with the TPN as she is receiving premix Clinimax. Her potassium is improved from 2.9-3.3 today. Phosphorus is stable at 2.2 down slightly from 2.4 yesterday. 4. Hyponatremia Sodium is stable at 127. 5. Hypothyroidism Continue levothyroxine 6. Hypertension Blood pressures are stable Code status Full Prophylaxis On b.i.d. aspirin 81 mg Disposition She has been accepted [facility], but can not be taken on TPN. She will not be able to discharge there until she is tolerating 50-75% of her diet. Time-Based Coding :: [TOTAL MINUTES] spent with patient and on the chart (including review of chart, obtaining history, exam, reviewing outside data, placing orders, documenting exam and treatment plan, and counseling patient) on [DATE].
[2024-12-17 16:47] LABS: Clostridium Difficile Tox PCR Negative for C. diff (Negative)
--- NOTE | 2024-12-17 18:36 | PC.NURSE ---
Addendum entered by Iris Natarajan R.N. 12/17/24 18:37: INDU site on top draining serous liquid continues to soak through drainage pads, bulb irrigated x2. Original Note: woundvac removed, wound cleansed, and woundvac replaced by MD Jane this a.m. at bedside.
[2024-12-17] MEDS: AA 5 %/CALCIUM/LYTES/DEXT 20 % 1,500 ML with MULTIVITAMIN 10 ML, TRACE ELEMENTS 1 ML, T... 63.292 ML IV (19:49)
[2024-12-17 20:00] VITALS: BP 112/57; PULSE 80; RESP 18; TEMP 36.2; O2SAT 97
--- NOTE | 2024-12-17 20:00 | PC.NURSE ---
LLQ Indu drain output within 2 hours is 125ml serosanguinous fluid. INDU bulb will not charge. Dr Jane notified and stated to monitor drain output frequently and to keep dressing CDI.
[2024-12-17] MEDS: PANTOPRAZOLE 40 MG VIAL IV (20:37)
[2024-12-17] MEDS: lisinopriL 10 MG TABLET PO (20:37)
[2024-12-17] MEDS: ATORVASTATIN 20 MG TABLET 10 MG PO (20:37)
[2024-12-18] MEDS: HEPARIN 5,000 UNIT/ML VIAL 5000 UNIT SUBCUT ×3 (05:52→21:35)
[2024-12-18] MEDS: PIPERACILLIN/TAZO 3.375 GM in SODIUM CHLORIDE 0.9% 100 ML IV ×3 (05:53→21:34)
[2024-12-18] MEDS: LEVOTHYROXINE 100 MCG TABLET PO (05:53)
[2024-12-18] MEDS: ACETAMINOPHEN 325 MG TABLET 650 MG PO ×2 (05:59→13:43)
--- NOTE | 2024-12-18 07:58 | P.PN_ITS ---
Subjective Subjective Interval history: Summary: 79 yo female w/hypothyroidism, HTN, HLD, GLORIA and LTKA for OA in September admitted w/incarcerated hernia 12/03/24.? She underwent small bowel resection w/open repair of right femora hernia on the day of admit.? She developed an enterocutaneous fistula post-op which had highout put that had been difficult to contain.? On 12/14 she returned to the OR for laparotomy with small bowel resection and wound vac exchange. S: She was improving on a daily basis. Her appetite is improving. She would 2 bowel movements yesterday. Her drains are still putting out a fair amount of serous material. Her wound VAC was changed on Wednesday. Her abdominal pain is well-controlled. No nausea. Exam Vital Signs (past 8 hours): Fraction of Inspired Oxygen 28 SaO2/FiO2 Ratio 328 Oxygen Delivery Method Room Air Oxygen Flow Rate 0 Narrative Exam Narrative: NAD, alert and oriented. Fluent speech. Lungs are clear, normal rate and effort. Heart is regular, no murmur gallop or rub. Abdomen is soft, non distended. Midline incisional wound distress, 2 drains. There is a right groin wound VAC in place. There is no pain with palpation. Extremities are free of edema. Objective Labs 12/17/24 12:42 12/17/24 04:43 Labs: Laboratory Results - last 24 hr 12/17/24 12/17/24 12:42 15:20 Hgb 8.5 L Hct 24.8 L C. difficile Tox (PCR) Negative for c. diff [facility] Medical History History of COVID-19 (05/2024) Hiatal hernia Serum sodium decreased Encounter for subsequent annual wellness visit (AWV) in Medicare patient Vision disorder Rosacea Shoulder pain (~2014) Foot pain Measles Chicken pox (~1949) Hearing loss (~2021) Cataracts, bilateral (~2014) History of urinary incontinence Neutropenia 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 Allergic rhinitis Osteoarthritis (~1997) Obstructive sleep apnea of adult Primary insomnia Lichen sclerosus et atrophicus Vitamin D deficiency Chronic cough Osteopenia HTN (hypertension) (~2009) Hyperlipidemia Surgical History 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) Hx of LASIK Anesthesia History of hand surgery (~2022) History of breast mammoplasty S/P foot surgery, right S/P UVPP (uvulopalatopharyngoplasty) Hx of bilateral breast reduction surgery S/P trigger finger release History of facelift Hx of bladder repair surgery Hx of partial thyroidectomy Hx of partial thyroidectomy Family History Mother Heart attack Brother History of heart disease Social History household members: none occupational status: previously employed Smoking Status: Never smoker alcohol intake: current substance use type: does not use Assessment & Plan Assessment & Plan narrative: 1. Postoperative day #4 from small-bowel resection and wound VAC exchange for a high volume enterocutaneous fistula after initial small-bowel resection with open repair of right femoral hernia. Patient is slowly trying to advance her diet. She did not tolerate an ice-cream protein shakes yesterday. Today, she is trying just broth again. Plan to advanced diet as tolerated. She will not be able to go to detention facility until she is tolerating 50-75% of her diet, as they are unable to take the patient on TPN. She continues TPN for now. 2. Acute blood loss anemia, stable. Hemoglobin was stable at 9.7 on 12/15/2024. This morning's labs showed her hemoglobin at 7.6. I have no good reason for a drop 2 g. It may be hemodilutional, but with her burning abdominal pain yesterday, will recheck to ensure that her hemoglobin is stable. 3. Electrolyte derangements including hypokalemia and hypophosphatemia, improved. Continue to replete with IV electrolyte replacement. This can not be addressed with the TPN as she is receiving premix Clinimax. Her potassium is improved from 2.9-3.3 today. Phosphorus is stable at 2.2 down slightly from 2.4 yesterday. 4. Hyponatremia, stable. Sodium is stable at 127. 5. Hypothyroidism, stable Continue levothyroxine 6. Hypertension, stable Blood pressures are stable Plan: -continue to advance diet with the goal of weaning off from TPN. -surgical drains when to be discontinued when output is acceptable. -continue right groin wound VAC. -[facility] when she was able to be off TPN, likely around December 20 through . Code status Full Prophylaxis On b.i.d. aspirin 81 mg Disposition She has been accepted [facility], but can not be taken on TPN. She will not be able to discharge there until she is tolerating 50-75% of her diet. Time-Based Coding :: [TOTAL MINUTES] spent with patient and on the chart (including review of chart, obtaining history, exam, reviewing outside data, placing orders, documenting exam and treatment plan, and counseling patient) on [DATE].
[2024-12-18 08:00] VITALS: BP 121/51; PULSE 72; RESP 17; TEMP 35.9; O2SAT 96
[2024-12-18] MEDS: PANTOPRAZOLE 40 MG VIAL IV ×2 (08:36→21:35)
[2024-12-18] MEDS: ASPIRIN EC 81 MG TABLET PO ×2 (08:37→21:35)
[2024-12-18] MEDS: INSULIN LISPRO 100 UNIT/ML 3ML VIAL SUBCUT (08:37)
[2024-12-18] MEDS: FLUTICASONE 120 SPRAY/16 GM SPRAY.SUSP NASAL ×2 (08:37→21:37)
[2024-12-18] MEDS: FUROSEMIDE 40 MG TABLET PO ×2 (08:38→17:46)
[2024-12-18] MEDS: SODIUM CHLORIDE 0.9% FLUSH 10 ML IV ×2 (08:39→22:00)
--- NOTE | 2024-12-18 11:01 | CM.DPC ---
DCP Cont: Per MD, pt remains on TPN currently but actively attempting to wean her off the TPN and onto diet of at least protein shakes and things she can tolerate for healing. [facility] continues to follow for accepting when off TPN. PERLA Avalos
--- NOTE | 2024-12-18 11:02 | DIET.PN1 ---
Dietary Progress Note Assessment: RD f/u Spoke to nursing, patient tolerated 100% of cream of rice this morning with cream. Nursing staff tracking PO intakes today. Met with patient. Has been tolerating protein supplementation. Switched back to Ensure Enlive, able to do 2-3 per day. Ordered soup and fruit for lunch. Patient working to increase PO intakes from food in addition to Ensures. Plan to wean off TPN. Will reduce to 1 L Clinimix 5/20 this evening. If patient is able to tolerate adequate PO intakes today and breakfast tomorrow with protein supplementation, can d/c the TPN tomorrow, weaning per protocol. Spoke to pharmacist on plan. Pharmacy repleted phos and K+ per protocol and monitoring. Following PO intakes closely. Will f/u tomorrow. Ht: 149.86 cm Wt: 68.039 kg BMI: 30.2 Last BM: 12/18/24 (12/18/24 04:00) MNA: 10 Avinash Score: 17 Diet: 12/17/24 Dinner General (Regular) Diet Diet Modifications: Food Texture: Level 7 - Regular Liquid Consistency: Level 0 - Thin Nutrition Percent Meal Consumed 100% 12/18/24 10:00 Percent Meal Consumed 0% 12/16/24 18:00 Labs: RBC 2.58 X10^6/uL (4.0-5.2) L 12/17/24 04:43 Hgb 8.5 g/dL (12.0-16.0) L 12/17/24 12:42 Hct 24.8 % (36-46) L 12/17/24 12:42 Creatinine 0.56 mg/dL (0.52-1.04) 12/17/24 04:43 Lactate 1.4 mmol/L (0.7-2.1) 12/03/24 17:50 NT-Pro-B Natriuret Pep 379 pg/mL (<450) 12/06/24 07:02 Electronically Signed by: Jocelyn Hinds 12/18/24 11:02 Clinical Dietitian [address] [address]
--- NOTE | 2024-12-18 11:22 | PT.IPRE ---
Current Diagnoses Hypo-osmolality and hyponatremia (12/03/24) Unilateral inguinal hernia, with obstruction, without gangrene, not specified as recurrent (12/03/24) Complete intestinal obstruction, unspecified as to cause (12/03/24) Surgery Performed Operation Date: 12/03/24 22:15 Actual Procedures p Hernia Repair - Inguinal, small bowel resection(Right) - Fuad Singh MD Operation Date: 12/14/24 12:30 Actual Procedures p Laparotomy, wound vac exchange, SMALL BOWEL RESECTION - Fuad Singh MD Surgical History (Last Reviewed 12/14/24 @ 07:57 by Matt Amanda MD) Anesthesia History of breast mammoplasty History of facelift History of hand surgery (~2022) 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) Hx of bilateral breast reduction surgery Hx of bladder repair surgery Hx of LASIK Hx of partial thyroidectomy Hx of partial thyroidectomy S/P foot surgery, right S/P trigger finger release S/P UVPP (uvulopalatopharyngoplasty) Medical History (Last Reviewed 12/14/24 @ 07:57 by Matt Amanda MD) Allergic rhinitis Cataracts, bilateral (~2014) Chicken pox (~1949) Chronic cough Encounter for subsequent annual wellness visit (AWV) in Medicare patient Foot pain Hearing loss (~2021) Hiatal hernia History of COVID-19 (05/2024) History of urinary incontinence HTN (hypertension) (~2009) Hyperlipidemia Hypothyroidism associated with surgical procedure (~1959) Lichen sclerosus et atrophicus Measles Neutropenia Obstructive sleep apnea of adult Osteoarthritis (~1997) Osteopenia Primary insomnia Rosacea Serum sodium decreased Shoulder pain (~2014) Varicosities of leg Vision disorder Vitamin D deficiency Physical Therapy Inpatient Evaluation/Re-Eval M1 PT/OT-IP Prior Functional Status Start: 12/04/24 11:12 Freq: NEEDED Status: Active Protocol: Document 12/18/24 10:45 MB (Rec: 12/18/24 11:22 MB [id number]) Medical Review Prior Functional Status Medical History Reviewed Yes Diet/Fluid Consistency Regular Communication Pt is an effective verbal communicator. Mobility and Gait Mod I with 4WRW or RW Activities of Daily Living and IADL's Mod I, drove, uses a shower chair. Currently pt is renovating her master bathroom and is using the guest bath. Social History Household Members none Living Arrangements House Number of Floors (Floors) One Floor Number of Stairs To Enter/Railing? 1 small step without rail to get into house, can hold onto doorway M2 PT-IP Current Condition Start: 12/04/24 11:12 Freq: NEEDED Status: Active Protocol: Document 12/04/24 11:44 MB (Rec: 12/04/24 12:36 MB [id number]) Physical Therapy Current Condition Current Condition Evaluation Date 12/04/24 Treatment Diagnosis Small bowel resection, hernia repair, has drain and catheter M3 PT-IP Subjective Start: 12/04/24 11:12 Freq: NEEDED Status: Active Protocol: Document 12/18/24 10:45 MB (Rec: 12/18/24 11:22 MB [id number]) Subjective Physical Therapy Visit Type Type Re-Evaluation Visit Start Time 10:45 Visit Stop Time 11:08 Number of MEDICAL POLICY SPECIALIST Visits 0 Physical Therapy Visit Comments Patient Comments Pt agreeable to therapies for re-eval after second abdominal procedure, laparatomy and SB resection 12/14/24. Pt does not answer pain question, reports tingling in legs from edema. M4 PT-IP Mobility and Gait Start: 12/04/24 11:12 Freq: NEEDED Status: Active Protocol: Document 12/18/24 10:45 MB (Rec: 12/18/24 11:22 MB [id number]) PT-Transfer Assessment Sit to and From Stand Sit to and from Stand Standby Assistance,1 Person Assistance,Use of Upper Extremities Equipment Transfer Assistive Device Gait Belt,Front Wheeled Walker Transfer Ability Level of Assist Standby Assistance,1 Person Assistance,Use of Upper Extremities Comments Mobility Comments Pt on BSC with INFORMAL WAITER/WAITRESS upon arrival and therapists arrive and take over to allow for re- eval. See OT note as well: pt pushes up from BSC and tends to lean heavily over RW, dependent for hygiene after using commode. Gait Assessment Gait Gait Assistance Required: Standby Assistance Distance (Feet) 20 Able to Maintain Weight Bearing Status Yes During Gait Assistive Devices Assistive Device Gait Belt,Front Wheeled Walker Orthotic/Prosthetic Devices or Brace: No Gait Deviations General Gait Pattern Decreased Stride Length, Decreased Feet Clearance,Step- to Gait Factors Limiting Gait Function Factors Limiting Gait Function Decreased Activity Tolerance, Decreased Strength Comments Gait Comments Therapist manages IV pole and wound vac, pt now with two drains as well, slow gait and decreased foot clearance, flexed posture 20'x1, 10'x1 PT-Balance Assessment Sitting Balance and Reactions Static Sitting Balance Ability Good Dynamic Sitting Balance Ability Good Standing Balance and Reactions Static Standing Balance Ability Good Dynamic Standing Balance Ability Good Device Used RW M5 PT-IP Objective Assessments Start: 12/04/24 11:12 Freq: NEEDED Status: Active Protocol: Document 12/04/24 11:44 MB (Rec: 12/04/24 12:36 MB [id number]) Orientation Orientation/Cognition Level of Alertness Alert Orientation Name,Age,Birthday,Month,Date, Year,Day of Week,Place, Situation Language Function Ability No Deficits Noted Safety Awareness Understands Safety Issues Memory Description No Deficits Noted Gross Range of Motion Upper Extremity ROM Impairments Defer to OT Lower Extremity ROM Assessment Within Functional Limits Impairments Recent LTKR and scar healing well and good function in leg today Strength Lower Extremity Strength Assessment Within Functional Limits Coordination Assessment Assessment Coordination Comments NT Sensation Assessment Comments Sensation Comments NT Muscle Tone Muscle Tone WNL Yes M6 PT-IP Treatment Start: 12/04/24 11:12 Freq: NEEDED Status: Active Protocol: Document 12/18/24 10:45 MB (Rec: 12/18/24 11:22 MB [id number]) Physical Therapy Treatment Education Education Provided Safety Other Treatments Other Treatment Performed Transfer training, balance training in standing, short gait x2 M7 PT-IP Assessment and Plan Start: 12/04/24 11:12 Freq: NEEDED Status: Active Protocol: Document 12/18/24 10:45 MB (Rec: 12/18/24 11:22 MB [id number]) PT Summary Assessment and Plan Potential Rehabilitation Potential Good Status of Condition at Evaluation Evolving Summary Impairments Pain,ROM,Strength,Balance,Bed Mobility,Transfers,Gait, Activity Tolerance Progress Towards Goals Progressing Toward Goals Assessment Summary Pt is now s/p a second abdominal surgery and she has a wound vac and drains. Pt makes a good effort with therapy and mobility and she tends to guide her own treatment and states she does not want to try to assist herself with hygiene today. Con't encouragement to improve pt participation in mobility and other tasks. Goals Bed Mobility Goal Independent Transfer Goal Independent,Front Wheeled Walker Gait Goal Independent,Front Wheel Walker Gait Distance 150 Other Goals Pt will ascend and descend 1 low step with LRAD and no more than CGA to allow safe home entrance. Days to Meet Goals 5 Frequency of Treatment Frequency Of Treatment Once a Day Treatment Plan Physical Therapy Treatment Plan Bed Mobility Training,Transfer Training,Gait Training, Therapeutic Exercise,Balance Retraining,Post Op Education, Discharge Planning,Hot or Cold Pack,Neuromuscular Re-ed, Coordination Retraining,Manual Therapy Precautions Abdominal Surgery Precautions Log Roll,Lifting Restrictions, Gait Belt above Incisional Area Other Precautions Wound vac and drains Recommendations To Nursing Amount of Assist Needed 1 Person Assist Discharge Recommendations PT Discharge Recommendations SNF Rehab Transportation Needs at Discharge Private Vehicle,Wheelchair/ Cabulance
--- NOTE | 2024-12-18 11:35 | OT.IPRE ---
Current Diagnoses Hypo-osmolality and hyponatremia (12/03/24) Unilateral inguinal hernia, with obstruction, without gangrene, not specified as recurrent (12/03/24) Complete intestinal obstruction, unspecified as to cause (12/03/24) Surgery Performed Operation Date: 12/03/24 22:15 Actual Procedures p Hernia Repair - Inguinal, small bowel resection(Right) - Fuad Singh MD Operation Date: 12/14/24 12:30 Actual Procedures p Laparotomy, wound vac exchange, SMALL BOWEL RESECTION - Fuad Singh MD Past Medical History (Last Reviewed 12/14/24 @ 07:57 by Matt Amanda MD) Allergic rhinitis Cataracts, bilateral (~2014) Chicken pox (~1949) Chronic cough Encounter for subsequent annual wellness visit (AWV) in Medicare patient Foot pain Hearing loss (~2021) Hiatal hernia History of COVID-19 (05/2024) History of urinary incontinence HTN (hypertension) (~2009) Hyperlipidemia Hypothyroidism associated with surgical procedure (~1959) Lichen sclerosus et atrophicus Measles Neutropenia Obstructive sleep apnea of adult Osteoarthritis (~1997) Osteopenia Primary insomnia Rosacea Serum sodium decreased Shoulder pain (~2014) Varicosities of leg Vision disorder Vitamin D deficiency Surgical History (Last Reviewed 12/14/24 @ 07:57 by Matt Amanda MD) Anesthesia History of breast mammoplasty History of facelift History of hand surgery (~2022) 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) Hx of bilateral breast reduction surgery Hx of bladder repair surgery Hx of LASIK Hx of partial thyroidectomy Hx of partial thyroidectomy S/P foot surgery, right S/P trigger finger release S/P UVPP (uvulopalatopharyngoplasty) Occupational Therapy Inpatient Evaluation/Re-Eval M1 PT/OT-IP Prior Functional Status Start: 12/04/24 11:12 Freq: NEEDED Status: Active Protocol: Document 12/18/24 11:57 [facility] (Rec: 12/18/24 12:07 [facility] [id number]) Medical Review Prior Functional Status Medical History Reviewed Yes Diet/Fluid Consistency Regular Communication Pt is an effective verbal communicator. Mobility and Gait Mod I with 4WRW or RW Activities of Daily Living and IADL's Mod I, drove, uses a shower chair. Currently pt is renovating her master bathroom and is using the guest bath. Social History Household Members none Living Arrangements House Number of Floors (Floors) One Floor Number of Stairs To Enter/Railing? 1 small step without rail to get into house, can hold onto doorway Home Environment High Toilet,Walk in Shower,Tub /Shower Home Equipment Front Wheel Walker,Four Wheel Walker,Shower Seat with Backrest,Hand Held Shower, Pattern Scratcher M2 OT-IP Current Condition Start: 12/04/24 14:19 Freq: Status: Active Protocol: Document 12/18/24 11:57 [facility] (Rec: 12/18/24 12:07 [facility] [id number]) Occupational Therapy Current Condition Current Condition Evaluation Date 12/18/24 Treatment Diagnosis Small Bowel resection, hernia repair drain and cath. Diagnosis Onset Date 12/14/24 Post Operative Precautions Abdominal Surgery Precautions Log Roll,Lifting Restrictions, Gait Belt above Incisional Area M3 OT- IP Subjective and Pain Start: 12/04/24 14:19 Freq: Status: Active Protocol: Document 12/18/24 11:57 [facility] (Rec: 12/18/24 12:07 [facility] [id number]) OT- Subjective Occupational Therapy Visit Type Type Re-Evaluation Visit Start Time 10:53 Visit Stop Time 11:23 Occupational Therapy Visit Comments Patient Comments Pt agreed to get up to use the BSC. Patient/Caregiver Goals TO get better. OT Pain Assessment Pain When Pain Assessed At Rest Pain Present Pain Present Denied Pain M4 OT- IP ADL's Start: 12/04/24 14:19 Freq: Status: Active Protocol: Document 12/18/24 11:57 [facility] (Rec: 12/18/24 12:07 [facility] [id number]) OT [id number] Comments OT Self-Feeding Comments Not at meal time. OT ADL-Grooming General Evaluation Grooming Ability Standby Assistance Comments OT Grooming Comments set-up OT ADL-Oral Care General Eval Oral Care Ability Independent Comments Oral Care Comments while standing with FWW OT ADL-Toileting General Evaluation Toileting Ability Maximum Assistance Areas Needing Assistance Manage Clothing,Perform Perineal Hygiene Comments OT Toileting Comments Assist to wipe and for brief management needs. Pt heavily lean on the FWW while getting assist to wipe. Spoke of getting a toilet paper aid and use of wet ones to assist. OT ADL-Bathing Comments OT Bathing Comments Not performed M5 OT- IP IADL's Start: 12/04/24 14:19 Freq: Status: Active Protocol: Document 12/04/24 14:19 [facility] (Rec: 12/04/24 15:01 [facility] [id number]) OT-Instrumental Activities of Daily Living Deficits IADL Deficits Identified No Deficits Home Safety Awareness Awareness of Need for Assistance at Home Good Awareness Ability to Problem Solve Emergency Able to Problem Solve Situations Medication Management Medication Management No Deficits Identified Money Management Money Management No Deficits Identified Meal Preparation Meal Preparation No Deficits Identified Cage Manager Cage Manager No Deficits Identified Driving Driving Comments 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 M6 OT- IP Functional Cognition Start: 12/04/24 14:19 Freq: Status: Active Protocol: Document 12/18/24 11:57 [facility] (Rec: 12/18/24 12:07 [facility] [id number]) Cognitive Factors Limiting Selfcare Function Cognitive Ability Level of Alertness Alert Patient Orientation Name,Age,Birthday,Month,Date, Year,Day of Week,Place, Situation Attention Span Ability Capable of Focused Attention, Capable of Sustained Attention Ability to Follow Commands Able to Follow Multi-Step Commands Cognitive Comments Cognitive Assessment Comments Pt intact and very vocal of her needs and wants. OT- Vision and Hearing OT- Hearing Assessment OT- Hearing Assessment Hearing Impaired,Use of Hearing Aids OT- Vision Assessment Visual Acuity Glasses For Reading Visual Attentiveness WFL Occular Pursuits WFL Vision Assessment Comments Pt has glasses for reading and driving. M7 OT- IP Mobility and Balance Start: 12/04/24 14:19 Freq: Status: Active Protocol: Document 12/18/24 11:57 [facility] (Rec: 12/18/24 12:07 [facility] [id number]) OT-Transfer Assessment Sit to and From Stand Sit to and from Stand Contact Guard Assistance Transfers Transfer Ability Standby Assistance,Contact Guard Assistance Technique Transfer Destination Bedside Commode,Chair Transfer Technique Stand Step Pivot Devices Transfer Assistive Devices Gait Belt,Front Wheeled Walker Comments Mobility Comments Pt CGA at times but mainly assist to help with all the line and wound vac. while pt able to walk with the FWW. M8 OT- IP Objective Assessments Start: 12/04/24 14:19 Freq: Status: Active Protocol: Document 12/18/24 11:57 [facility] (Rec: 12/18/24 12:07 [facility] [id number]) OT Gross Range of Motion Upper Extremity Range of Motion Assessment Within Functional Limits OT Strength Upper Extremity Strength Assessment Within Functional Limits M9 OT- IP Assessment and Plan Start: 12/04/24 14:19 Freq: Status: Active Protocol: Document 12/18/24 11:57 [facility] (Rec: 12/18/24 12:07 [facility] [id number]) OT Summary Assessment and Plan Potential Rehabilitation Potential Good Analytic Complexity at Evaluation Moderate Summary OT Impairments Pain,Strength,Balance, Functional Mobility,Dressing, Toileting,Bathing,Toilet Transfers,Shower Transfers, Activity Tolerance Progress Towards Goals Progressing Toward Goals,Slow Progress due to Medical Issues Assessment Summary Pt able to participate in ADL and and walking in the room with her FWW with mainly SBA. Pt at times needing CGA while backing up with the FWW and to manage all the lines and wound vac. Pt to go to skilled rehab when medically stable. Goals Toileting Goal Independent Bathing Goal Independent Toilet Transfer Goal Independent Shower Transfer Goal Independent Days to Meet Goals 15 Frequency of Treatment Other frequency 5x/week Treatment Plan OT Treatment Plan ADL Training,Functional Mobility,Patient/Family Education,Discharge Planning Discharge Recommendations OT Discharge Recommendations SNF Rehab Transportation Needs at Discharge Private Vehicle,Wheelchair/ Cabulance
--- NOTE | 2024-12-18 12:39 | PM.PNPO.1 ---
Subjective Subjective Date Patient Seen: 12/18/24 Time Patient Seen: 12:39 Interval history: The INDU # 2, is leaking air, because it was half pulled out.. but still draining, so I secured it in place with tape, and put a lot of gauze, and will keep it till it falls off. Doing very well otherwise and ready for regular diet, will follow. Exam Vital Signs (past 8 hours): - 12/18/24 08:00 Temperature 96.6 F L Pulse Rate 72 Respiratory Rate 17 Blood Pressure 121/51 L Pulse Oximetry 96 Oxygen Flow Rate 0 Fraction of Inspired Oxygen 28 SaO2/FiO2 Ratio 328 Oxygen Delivery Method Room Air Oxygen Flow Rate 0 Objective Labs 12/17/24 12:42 12/17/24 04:43 Labs: Laboratory Results - last 24 hr 12/17/24 12/17/24 12:42 15:20 Hgb 8.5 L Hct 24.8 L C. difficile Tox (PCR) Negative for c. 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 Allergic rhinitis Osteoarthritis (~1997) Obstructive sleep apnea of adult Primary insomnia Lichen sclerosus et atrophicus Vitamin D deficiency Chronic cough Osteopenia HTN (hypertension) (~2009) Hyperlipidemia Surgical History 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) Hx of LASIK Anesthesia History of hand surgery (~2022) History of breast mammoplasty S/P foot surgery, right S/P UVPP (uvulopalatopharyngoplasty) Hx of bilateral breast reduction surgery S/P trigger finger release History of facelift Hx of bladder repair surgery Hx of partial thyroidectomy Hx of partial thyroidectomy Family History Mother Heart attack Brother History of heart disease Social History household members: none occupational status: previously employed Smoking Status: Never smoker alcohol intake: current substance use type: does not use Assessment & Plan Post-op Postoperative Procedures: Procedures Operation Date: 12/03/24 22:15 Actual Procedure Side Surgeon p Hernia Repair - Inguinal, small bowel resection Right Fuad Singh MD Operation Date: 12/14/24 12:30 Actual Procedure Side Surgeon p Laparotomy, wound vac exchange, SMALL BOWEL RESECTION Fuad Singh MD Postoperative status narrative: 12/18/24: The INDU # 2, is leaking air, because it was half pulled out.. but still draining, so I secured it in place with tape, and put a lot of gauze, and will keep it till it falls off. Doing very well otherwise and ready for regular diet, will follow.
[2024-12-18] MEDS: AA 5 %/CALCIUM/LYTES/DEXT 20 % 1,000 ML with MULTIVITAMIN 10 ML, TRACE ELEMENTS 1 ML, T... 42.458 ML IV (17:46)
[2024-12-18 20:00] VITALS: BP 119/54; PULSE 78; RESP 18; TEMP 36.4; O2SAT 98
[2024-12-18] MEDS: ATORVASTATIN 20 MG TABLET 10 MG PO (21:39)
--- NOTE | 2024-12-18 23:56 | PC.NURSE ---
Wound vac to R groin intact, suctioning serosanguinous fluid. Midline incision w/ aquacel CDI. LLQ INDU drain bulb remains round w/ serous fluid draining around INDU site, frequent dressing changes performed. LUQ INDU drain bulb suction appears intact. Patient reports minimal abdominal pain, denies nausea. Drank 1 ensure before bed. Oriented to call-light, plan of care ongoing.
--- NOTE | 2024-12-19 | PATH_ITS ---
[facility] Accession Number: [id number] No. of containers..01 Tissue . 01 Material submitted: . colon - ILEUM WITH ANASTAMOSIS . 01 Diagnosis: ILEUM WITH ANASTAMOSIS: Segment of small bowel with active serositis and focal abscess formation. No dysplasia, malignancy, or infectious organisms identified. . Specimen Comments: The micro- and macroscopic features are compatible with the history of prior surgery with failure of the anastomosis. [facility] 12/21/2024 1833 Local . 01 Electronically signed: . Germán White MD, Pathologist NPI- [id number] . 01 Gross description: . Received in formalin with two identifiers and ileum with anastomosis, is a convoluted unoriented segment of bowel (37.7 cm in length and averaging 2.0 cm in diameter) with three areas of bowel adherent to itself. The serosa is hardin to brown and diffusely roughened with five areas of full thickness defect with visuble mucosa ranging from 0.7 to 5.2 cm in greatest dimension. The closest defect to the margin is 1.5 cm from a staple line and the staple line is inked blue, while the opposite staple line is inked black. The edges of the defects are inked orange. The lumen contains a small amount of green mucoid material. The lumen is diffusely probed patent. A staple line and sutures are identified at the area of adhesion nearest the black inked margin and is consistent with previous anastomosis. The largest full thickness defect is identified directly adjacent to the healed staple line and sutures. . The mucosa is hardin and velvety with normal-appearing folds and no polyps or lesions identified. The long average 0.3 cm thick. Palpation reveals 7 hardin lymph node candidates ranging from 0.1 to 0.5 cm in greates dimension. . Sales Clerk Supervisor sections are submitted as follows: A1: Sales Clerk Supervisor margins en face. A2: Sections adjacent to anastomosis and associated defect. A3: Other areas of defect. A4-A5: Other areas of adhesion. A6: Full thickess unremarkable sections. A7: Four intact lymph node candidates. A8: Three intact lymph node candidates. ([id number]) /JOSEPH 12/21/2024 1833 Local . 01 Microscopic: . ILEUM WITH ANASTAMOSIS: Sections show small bowel with active serositis, with several foci of abscess and microabscess formation in which there is foreign body type inflammation as well as focal dense neutrophilic inflammation. Four reactive lymph nodes are present. No dysplasia is seen. . 01 Pathologist provided ICD-10: K63.2 . 01 CPT . 329972 Performed at: [address] [id number] MD Germán White MD Phone: [phone]
[2024-12-19] MEDS: PIPERACILLIN/TAZO 3.375 GM in SODIUM CHLORIDE 0.9% 100 ML IV ×3 (04:38→20:22)
[2024-12-19] MEDS: HEPARIN 5,000 UNIT/ML VIAL 5000 UNIT SUBCUT ×3 (05:10→22:52)
[2024-12-19] MEDS: LEVOTHYROXINE 100 MCG TABLET PO (05:10)
[2024-12-19 05:43] LABS: Mean Corpuscular HGB Conc 33.3 % (30-36); Mean Corpuscular Hemoglobin 29.7 PG (26-34); Mean Corpuscular Volume 89.1 fL (80-100); Platelet Count 521 X10^3/uL (150-400); Red Cell Distribution Width 16.2 % (11.6-14.8); White Blood Cell Count 6.8 X10^3/uL (4.5-11.0)
[2024-12-19 06:04] LABS: Alanine Aminotransferase 33 IU/L (<35); Albumin 2.7 g/dL (3.5-5.0); Albumin Globulin Ratio 0.9 (1.0-2.8); Alkaline Phosphatase 97 U/L (38-126); Aspartate Aminotransferase 63 IU/L (14-36); BUN Creatinine Ratio 33.3 (6-22); Bilirubin Total 0.1 mg/dL (0.2-1.3); Blood Urea Nitrogen 18 mg/dL (7-17); Calcium 7.4 mg/dL (8.4-10.2); Carbon Dioxide 30 mmol/L (22-32); Chloride 94 mmol/L (98-107); Estimated Glomerular Filt Rate > 60 mL/min (>60); Globulin 2.9 g/dL (1.7-4.1); Glucose 116 mg/dL (80-110); HEMOLYSIS < 15 (0-50); Magnesium 2.2 mg/dL (1.6-2.3); Phosphorous 2.7 mg/dL (2.8-4.1); Potassium 3.4 mmol/L (3.4-5.1); Sodium 128 mmol/L (137-145); Total Protein 5.6 g/dL (6.3-8.2)
[2024-12-19 08:00] VITALS: BP 131/60; PULSE 82; RESP 18; TEMP 36.5; O2SAT 100
[2024-12-19] MEDS: ACETAMINOPHEN 325 MG TABLET 650 MG PO ×2 (08:51→17:22)
[2024-12-19] MEDS: PANTOPRAZOLE 40 MG VIAL IV ×2 (08:51→20:24)
[2024-12-19] MEDS: ASPIRIN EC 81 MG TABLET PO ×2 (08:51→20:22)
[2024-12-19] MEDS: FUROSEMIDE 40 MG TABLET PO ×2 (08:51→17:22)
[2024-12-19] MEDS: FLUTICASONE 120 SPRAY/16 GM SPRAY.SUSP NASAL ×2 (08:53→20:23)
[2024-12-19] MEDS: POTASSIUM CHLORIDE 20 MEQ/15 ML UDC 40 MEQ PO (09:50)
[2024-12-19] MEDS: SODIUM CHLORIDE 0.9% FLUSH 10 ML IV ×2 (09:51→20:24)
--- NOTE | 2024-12-19 10:11 | PT-IP ANOTE ---
PT checks in on pt who states that she just got done taking medication and having dressing reinforced and she does not want to get up with PT/walk. Recommend con't efforts up to commode and up in room with nsg.
--- NOTE | 2024-12-19 10:17 | DIET.PN1 ---
Dietary Progress Note Assessment: Tolerated 100% breakfast and lunch yesterday, 50% dinner and 2 Ensure+. This morning 50% breakfast and working on Ensure+. Estimated meeting 75% or more of energy-protein needs through oral intake. TPN will be weaned off today, discussed in rounds. Continued to encourage 2-3 Ensure+ per day + meals and increasing meal volume. Spoke to pharmacy. Will replete phos per protocol. Ht: 149.86 cm Wt: 68.039 kg BMI: 30.2 Last BM: 12/18/24 (12/18/24 18:00) MNA: 10 Avinash Score: 20 Diet: 12/17/24 Dinner General (Regular) Diet Diet Modifications: Food Texture: Level 7 - Regular Liquid Consistency: Level 0 - Thin Nutrition Percent Meal Consumed 100% 12/18/24 10:00 Labs: RBC 2.70 X10^6/uL (4.0-5.2) L 12/19/24 04:54 Hgb 8.0 g/dL (12.0-16.0) L 12/19/24 04:54 Hct 24.0 % (36-46) L 12/19/24 04:54 Creatinine 0.54 mg/dL (0.52-1.04) 12/19/24 04:54 Lactate 1.4 mmol/L (0.7-2.1) 12/03/24 17:50 NT-Pro-B Natriuret Pep 379 pg/mL (<450) 12/06/24 07:02 Electronically Signed by: Jocelyn Hinds 12/19/24 10:17 Clinical Dietitian [address] [address]
[2024-12-19] MEDS: POTASSIUM PHOSPHATE 15 MMOL in SODIUM CHLORIDE 0.9% 250 ML 127.5 MMOL IV (12:58)
--- NOTE | 2024-12-19 13:56 | CM.DPC ---
DCP Cont. Reviewed EMR and team rounds for status updates. Pt is now off of TPN, advancing diet tomorrow. Will update [facility] once she gets close to being able to eat at least 50% of solid diet.
--- NOTE | 2024-12-19 15:20 | PT.IPTN ---
Current Diagnoses Hypo-osmolality and hyponatremia (12/03/24) Unilateral inguinal hernia, with obstruction, without gangrene, not specified as recurrent (12/03/24) Complete intestinal obstruction, unspecified as to cause (12/03/24) Surgery Performed Operation Date: 12/03/24 22:15 Actual Procedures p Hernia Repair - Inguinal, small bowel resection(Right) - Fuad Singh MD Operation Date: 12/14/24 12:30 Actual Procedures p Laparotomy, wound vac exchange, SMALL BOWEL RESECTION - Fuad Singh MD Physical Therapy Treatment Note M2 PT-IP Current Condition Start: 12/04/24 11:12 Freq: NEEDED Status: Active Protocol: Document 12/04/24 11:44 MB (Rec: 12/04/24 12:36 MB [id number]) Physical Therapy Current Condition Current Condition Evaluation Date 12/04/24 Treatment Diagnosis Small bowel resection, hernia repair, has drain and catheter M3 PT-IP Subjective Start: 12/04/24 11:12 Freq: NEEDED Status: Active Protocol: Document 12/19/24 15:20 AB (Rec: 12/19/24 16:05 AB [id number]) Subjective Physical Therapy Visit Type Type Treatment Note Visit Start Time 15:20 Visit Stop Time 15:45 Number of DRILLING FLUIDS SPECIALIST Visits 0 Physical Therapy Visit Comments Patient Comments agreeable to do PT M4 PT-IP Mobility and Gait Start: 12/04/24 11:12 Freq: NEEDED Status: Active Protocol: Document 12/19/24 15:20 AB (Rec: 12/19/24 16:05 AB [id number]) PT-Transfer Assessment Sit to and From Stand Sit to and from Stand Standby Assistance Equipment Transfer Assistive Device Front Wheeled Walker Orthotic/Prosthetic Devices or Brace: No Comments Mobility Comments pt sitting on the chair and agreed to do PT. completed sit to stand SBA and ambulated using FWW ~ 80 ft SBA. presents with slow paced gait. pt sat back on chair. positioned on chair. call light and table placed within reach. Gait Assessment Gait Gait Assistance Required: Standby Assistance Distance (Feet) 80 Able to Maintain Weight Bearing Status Yes During Gait Assistive Devices Assistive Device Gait Belt,Front Wheeled Walker Orthotic/Prosthetic Devices or Brace: No Gait Deviations General Gait Pattern Decreased Stride Length, Decreased Feet Clearance Factors Limiting Gait Function Factors Limiting Gait Function Decreased Activity Tolerance, Decreased Strength,Limited Range of Motion,Pain,Poor Safety Awareness M5 PT-IP Objective Assessments Start: 12/04/24 11:12 Freq: NEEDED Status: Active Protocol: Document 12/04/24 11:44 MB (Rec: 12/04/24 12:36 MB [id number]) Orientation Orientation/Cognition Level of Alertness Alert Orientation Name,Age,Birthday,Month,Date, Year,Day of Week,Place, Situation Language Function Ability No Deficits Noted Safety Awareness Understands Safety Issues Memory Description No Deficits Noted Gross Range of Motion Upper Extremity ROM Impairments Defer to OT Lower Extremity ROM Assessment Within Functional Limits Impairments Recent LTKR and scar healing well and good function in leg today Strength Lower Extremity Strength Assessment Within Functional Limits Coordination Assessment Assessment Coordination Comments NT Sensation Assessment Comments Sensation Comments NT Muscle Tone Muscle Tone WNL Yes M6 PT-IP Treatment Start: 12/04/24 11:12 Freq: NEEDED Status: Active Protocol: Document 12/19/24 15:20 AB (Rec: 12/19/24 16:05 AB [id number]) Physical Therapy Treatment Education Education Provided Safety M7 PT-IP Assessment and Plan Start: 12/04/24 11:12 Freq: NEEDED Status: Active Protocol: Document 12/19/24 15:20 AB (Rec: 12/19/24 16:05 AB [id number]) PT Summary Assessment and Plan Potential Rehabilitation Potential Fair Summary Impairments Pain,ROM,Strength,Balance,Bed Mobility,Transfers,Gait, Activity Tolerance Progress Towards Goals Slow Progress due to Medical Issues,Slow Progress due to Activity Tolerance Assessment Summary pt requiring SBA with ambulation using FWW and with decrease activity tolerance affecting level of assistance. pt lives alone and will require SNF rehab to improve overall strength and independence. Goals Bed Mobility Goal Independent Transfer Goal Independent,Front Wheeled Walker Gait Goal Independent,Front Wheel Walker Gait Distance 150 Other Goals Pt will ascend and descend 1 low step with LRAD and no more than CGA to allow safe home entrance. Days to Meet Goals 10 Frequency of Treatment Frequency Of Treatment Once a Day Treatment Plan Physical Therapy Treatment Plan Bed Mobility Training,Transfer Training,Gait Training, Therapeutic Exercise,Balance Retraining,Post Op Education, Discharge Planning,Hot or Cold Pack,Neuromuscular Re-ed, Coordination Retraining,Manual Therapy Precautions Abdominal Surgery Precautions Log Roll,Lifting Restrictions, Gait Belt above Incisional Area Other Precautions Wound vac and drains Recommendations To Nursing Amount of Assist Needed 1 Person Assist Discharge Recommendations PT Discharge Recommendations SNF Rehab Transportation Needs at Discharge Private Vehicle,Wheelchair/ Cabulance
--- NOTE | 2024-12-19 17:14 | P.PN_ITS ---
Subjective Subjective Date Patient Seen: 12/19/24 Time Patient Seen: 17:14 Exam Vital Signs (past 8 hours): Fraction of Inspired Oxygen 28 SaO2/FiO2 Ratio 328 Oxygen Delivery Method Room Air Oxygen Flow Rate 0 Objective Labs 12/19/24 04:54 12/19/24 04:54 Labs: Laboratory Results - last 24 hr 12/19/24 04:54 WBC 6.8 RBC 2.70 L Hgb 8.0 L Hct 24.0 L MCV 89.1 MCH 29.7 MCHC 33.3 RDW 16.2 H Plt Count 521 H Sodium 128 L Potassium 3.4 Chloride 94 L Carbon Dioxide 30 BUN 18 H Creatinine 0.54 Estimated GFR > 60 BUN/Creatinine Ratio 33.3 H Glucose 116 H Calcium 7.4 L Phosphorus 2.7 L Magnesium 2.2 Total Bilirubin 0.1 L AST 63 H ALT 33 Alkaline Phosphatase 97 Total Protein 5.6 L Albumin 2.7 L Globulin 2.9 Albumin/Globulin Ratio 0.9 L [facility] Medical History History of COVID-19 (05/2024) Hiatal hernia Serum sodium decreased Encounter for subsequent annual wellness visit (AWV) in Medicare patient Vision disorder Rosacea Shoulder pain (~2014) Foot pain Measles Chicken pox (~1949) Hearing loss (~2021) Cataracts, bilateral (~2014) History of urinary incontinence Neutropenia 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 Allergic rhinitis Osteoarthritis (~1997) Obstructive sleep apnea of adult Primary insomnia Lichen sclerosus et atrophicus Vitamin D deficiency Chronic cough Osteopenia HTN (hypertension) (~2009) Hyperlipidemia Surgical History 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) Hx of LASIK Anesthesia History of hand surgery (~2022) History of breast mammoplasty S/P foot surgery, right S/P UVPP (uvulopalatopharyngoplasty) Hx of bilateral breast reduction surgery S/P trigger finger release History of facelift Hx of bladder repair surgery Hx of partial thyroidectomy Hx of partial thyroidectomy Family History Mother Heart attack Brother History of heart disease Social History household members: none occupational status: previously employed Smoking Status: Never smoker alcohol intake: current substance use type: does not use Assessment & Plan Post-op Postoperative Procedures: Procedures Operation Date: 12/03/24 22:15 Actual Procedure Side Surgeon p Hernia Repair - Inguinal, small bowel resection Right Fuad Singh MD Operation Date: 12/14/24 12:30 Actual Procedure Side Surgeon p Laparotomy, wound vac exchange, SMALL BOWEL RESECTION Fuad Singh MD Postoperative status narrative: She is doing VERY well, thank God, the #2 drain is STILL draining SOME, will keep it x 1-2 at the most days, and I will remove it .
[2024-12-19] MEDS: polyethylene glycoL 3350 17 GM POWD.PACK PO (18:15)
--- NOTE | 2024-12-19 19:39 | P.PN_ITS ---
Subjective Subjective Interval history: Summary: 79 yo female w/hypothyroidism, HTN, HLD, GLORIA and LTKA for OA in September admitted w/incarcerated hernia 12/03/24.? She underwent small bowel resection w/open repair of right femora hernia on the day of admit.? She developed an enterocutaneous fistula post-op which had highout put that had been difficult to contain.? On 12/14 she returned to the OR for laparotomy with small bowel resection and wound vac exchange. S: She was improving on a daily basis. Her appetite is improving. TPN is being discontinued this afternoon with improving oral intake. Exam Vital Signs (past 8 hours): Fraction of Inspired Oxygen 28 SaO2/FiO2 Ratio 328 Oxygen Delivery Method Room Air Oxygen Flow Rate 0 Narrative Exam Narrative: NAD, alert and oriented. Fluent speech. Lungs are clear, normal rate and effort. Heart is regular, no murmur gallop or rub. Abdomen is soft, non distended. Midline incisional wound distress, 2 drains. There is a right groin wound VAC in place. There is no pain with palpation. Extremities are free of edema. Objective Labs 12/19/24 04:54 12/19/24 04:54 Labs: Laboratory Results - last 24 hr 12/19/24 04:54 WBC 6.8 RBC 2.70 L Hgb 8.0 L Hct 24.0 L MCV 89.1 MCH 29.7 MCHC 33.3 RDW 16.2 H Plt Count 521 H Sodium 128 L Potassium 3.4 Chloride 94 L Carbon Dioxide 30 BUN 18 H Creatinine 0.54 Estimated GFR > 60 BUN/Creatinine Ratio 33.3 H Glucose 116 H Calcium 7.4 L Phosphorus 2.7 L Magnesium 2.2 Total Bilirubin 0.1 L AST 63 H ALT 33 Alkaline Phosphatase 97 Total Protein 5.6 L Albumin 2.7 L Globulin 2.9 Albumin/Globulin Ratio 0.9 L [facility] Medical History History of COVID-19 (05/2024) Hiatal hernia Serum sodium decreased Encounter for subsequent annual wellness visit (AWV) in Medicare patient Vision disorder Rosacea Shoulder pain (~2014) Foot pain Measles Chicken pox (~1949) Hearing loss (~2021) Cataracts, bilateral (~2014) History of urinary incontinence Neutropenia 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 Allergic rhinitis Osteoarthritis (~1997) Obstructive sleep apnea of adult Primary insomnia Lichen sclerosus et atrophicus Vitamin D deficiency Chronic cough Osteopenia HTN (hypertension) (~2009) Hyperlipidemia Surgical History 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) Hx of LASIK Anesthesia History of hand surgery (~2022) History of breast mammoplasty S/P foot surgery, right S/P UVPP (uvulopalatopharyngoplasty) Hx of bilateral breast reduction surgery S/P trigger finger release History of facelift Hx of bladder repair surgery Hx of partial thyroidectomy Hx of partial thyroidectomy Family History Mother Heart attack Brother History of heart disease Social History household members: none occupational status: previously employed Smoking Status: Never smoker alcohol intake: current substance use type: does not use Assessment & Plan Assessment & Plan narrative: 1. Postoperative from small-bowel resection and wound VAC exchange for a high volume enterocutaneous fistula after initial small-bowel resection with open repair of right femoral hernia. Her diet is slowly improving, will stop TPN after today's bag finishes. Continue to monitor caloric intake and progress as TPN shut off. 2. Acute blood loss anemia, stable. Hemoglobin was stable at 9.7 on 12/15/2024. Sudden drop without obvious cause yesterday, repeat improved now stable x3 around Hg of 8.0. 3. Electrolyte derangements including hypokalemia and hypophosphatemia, improved. Continue to replete with IV electrolyte replacement. potassium now improved at 3.4. 4. Hyponatremia, stable. Sodium is stable at 128 today. 5. Hypothyroidism, stable Continue levothyroxine 6. Hypertension, stable Blood pressures are stable Plan: -off TPN today. -surgical drains when to be discontinued when output is acceptable. -continue right groin wound VAC. -[facility] when off TPN for 24 hours. Possibly 12/21. Code status Full Prophylaxis On b.i.d. aspirin 81 mg Disposition She has been accepted to [facility], but can not be taken on TPN. She will not be able to discharge there until she is tolerating 50-75% of her diet. Time-Based Coding :: [TOTAL MINUTES] spent with patient and on the chart (including review of chart, obtaining history, exam, reviewing outside data, placing orders, documenting exam and treatment plan, and counseling patient) on [DATE].
[2024-12-19 20:00] VITALS: BP 120/59; PULSE 84; RESP 19; TEMP 36.1; O2SAT 97
[2024-12-19 20:23] VITALS: BP 120/59; PULSE 84
[2024-12-19] MEDS: ATORVASTATIN 20 MG TABLET 10 MG PO (20:23)
[2024-12-19] MEDS: lisinopriL 10 MG TABLET PO (20:23)
[2024-12-20] MEDS: PIPERACILLIN/TAZO 3.375 GM in SODIUM CHLORIDE 0.9% 100 ML IV (04:47)
[2024-12-20 05:08] LABS: Hemoglobin 8.2 g/dL (12.0-16.0); Mean Corpuscular HGB Conc 32.7 % (30-36); Mean Corpuscular Hemoglobin 29.2 PG (26-34); Mean Corpuscular Volume 89.3 fL (80-100); Platelet Count 530 X10^3/uL (150-400); Red Cell Distribution Width 16.9 % (11.6-14.8); White Blood Cell Count 7.8 X10^3/uL (4.5-11.0)
[2024-12-20 05:30] LABS: Alanine Aminotransferase 52 IU/L (<35); Albumin 2.9 g/dL (3.5-5.0); Alkaline Phosphatase 109 U/L (38-126); Aspartate Aminotransferase 67 IU/L (14-36); BUN Creatinine Ratio 33.3 (6-22); Bilirubin Total 0.2 mg/dL (0.2-1.3); Blood Urea Nitrogen 20 mg/dL (7-17); Calcium 7.8 mg/dL (8.4-10.2); Carbon Dioxide 30 mmol/L (22-32); Chloride 96 mmol/L (98-107); Estimated Glomerular Filt Rate > 60 mL/min (>60); Glucose 95 mg/dL (80-110); HEMOLYSIS < 15 (0-50); Magnesium 2.1 mg/dL (1.6-2.3); Phosphorous 2.9 mg/dL (2.8-4.1); Potassium 4.2 mmol/L (3.4-5.1); Sodium 130 mmol/L (137-145); Total Protein 5.9 g/dL (6.3-8.2)
[2024-12-20] MEDS: ACETAMINOPHEN 325 MG TABLET 650 MG PO ×3 (06:39→22:31)
[2024-12-20] MEDS: HEPARIN 5,000 UNIT/ML VIAL 5000 UNIT SUBCUT ×3 (06:39→22:32)
[2024-12-20] MEDS: LEVOTHYROXINE 100 MCG TABLET PO (06:39)
[2024-12-20] MEDS: FUROSEMIDE 40 MG TABLET PO ×2 (08:45→17:17)
[2024-12-20] MEDS: ASPIRIN EC 81 MG TABLET PO ×2 (08:45→21:04)
[2024-12-20] MEDS: FLUTICASONE 120 SPRAY/16 GM SPRAY.SUSP NASAL ×2 (08:46→21:05)
[2024-12-20] MEDS: PANTOPRAZOLE 40 MG VIAL IV (08:47)
[2024-12-20] MEDS: polyethylene glycoL 3350 17 GM POWD.PACK PO (08:47)
[2024-12-20] MEDS: SODIUM CHLORIDE 0.9% FLUSH 10 ML IV ×2 (08:47→21:07)
--- NOTE | 2024-12-20 10:59 | DIET.PN1 ---
Dietary Progress Note Assessment: TPN d/c. Met with patient and checked calorie count: 12/19: Patient had 2 Ensure Enlives, 50% breakfast and dinner, 100% milk carton and 100% lunch 12/20: this morning patient had 100% of breakfast including milk Patient continues to meet >75% estimated energy and protein needs on oral intake only. Will d/c calorie count. Patient is able to accurately describe her intakes. Recc Ensures BID-TID upon d/c to support meals Ht: 149.86 cm Wt: 68.039 kg BMI: 30.2 Last BM: 12/18/24 (12/18/24 18:00) MNA: 10 Avinash Score: 19 Diet: 12/17/24 Dinner General (Regular) Diet Diet Modifications: Food Texture: Level 7 - Regular Liquid Consistency: Level 0 - Thin Nutrition Percent Meal Consumed 50% 12/19/24 18:00 Labs: RBC 2.80 X10^6/uL (4.0-5.2) L 12/20/24 04:41 Hgb 8.2 g/dL (12.0-16.0) L 12/20/24 04:41 Hct 25.0 % (36-46) L 12/20/24 04:41 Creatinine 0.60 mg/dL (0.52-1.04) 12/20/24 04:41 Lactate 1.4 mmol/L (0.7-2.1) 12/03/24 17:50 NT-Pro-B Natriuret Pep 379 pg/mL (<450) 12/06/24 07:02 Electronically Signed by: Jocelyn Hinds 12/20/24 10:59 Clinical Dietitian [address] [address]
[2024-12-20 12:00] VITALS: BP 135/57; PULSE 77; RESP 18; TEMP 36.3; O2SAT 99
--- NOTE | 2024-12-20 13:13 | PM.PNPO.1 ---
Subjective Subjective Date Patient Seen: 12/20/24 Time Patient Seen: 13:13 Exam Vital Signs (past 8 hours): Fraction of Inspired Oxygen 28 SaO2/FiO2 Ratio 328 Oxygen Delivery Method Room Air Oxygen Flow Rate 0 Objective Labs 12/20/24 04:41 12/20/24 04:41 Labs: Laboratory Results - last 24 hr 12/20/24 04:41 WBC 7.8 RBC 2.80 L Hgb 8.2 L Hct 25.0 L MCV 89.3 MCH 29.2 MCHC 32.7 RDW 16.9 H Plt Count 530 H Sodium 130 L Potassium 4.2 Chloride 96 L Carbon Dioxide 30 BUN 20 H Creatinine 0.60 Estimated GFR > 60 BUN/Creatinine Ratio 33.3 H Glucose 95 Calcium 7.8 L Phosphorus 2.9 Magnesium 2.1 Total Bilirubin 0.2 AST 67 H ALT 52 H Alkaline Phosphatase 109 Total Protein 5.9 L Albumin 2.9 L Globulin 3.0 Albumin/Globulin Ratio 1.0 PFSH Medical History History of COVID-19 (05/2024) Hiatal hernia Serum sodium decreased Encounter for subsequent annual wellness visit (AWV) in Medicare patient Vision disorder Rosacea Shoulder pain (~2014) Foot pain Measles Chicken pox (~1949) Hearing loss (~2021) Cataracts, bilateral (~2014) History of urinary incontinence Neutropenia 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 Allergic rhinitis Osteoarthritis (~1997) Obstructive sleep apnea of adult Primary insomnia Lichen sclerosus et atrophicus Vitamin D deficiency Chronic cough Osteopenia HTN (hypertension) (~2009) Hyperlipidemia Surgical History 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) Hx of LASIK Anesthesia History of hand surgery (~2022) History of breast mammoplasty S/P foot surgery, right S/P UVPP (uvulopalatopharyngoplasty) Hx of bilateral breast reduction surgery S/P trigger finger release History of facelift Hx of bladder repair surgery Hx of partial thyroidectomy Hx of partial thyroidectomy Family History Mother Heart attack Brother History of heart disease Social History household members: none occupational status: previously employed Smoking Status: Never smoker alcohol intake: current substance use type: does not use Assessment & Plan Post-op Postoperative Procedures: Procedures Operation Date: 12/03/24 22:15 Actual Procedure Side Surgeon p Hernia Repair - Inguinal, small bowel resection Right Fuad Singh MD Operation Date: 12/14/24 12:30 Actual Procedure Side Surgeon p Laparotomy, wound vac exchange, SMALL BOWEL RESECTION Fuad Singh MD Postoperative status narrative: She is doing well, taking PO protein well, and the INDU #2 is less draining.. will dc-it tomorrow. Could switch Zosyn to Augmentin, for the purulence noted in her wound vac, right groin, continue x 5-7 days, and should Re-evaluate.
--- NOTE | 2024-12-20 13:34 | CM.DPC ---
DCP Cont. Reviewed EMR and team rounds for status updates. Per Surgeon, pt will have her wound vac changed on 12/21, and [facility] on Wednesday, transport time TBD.
[2024-12-20] MEDS: BISACODYL 10 MG SUPP PR (15:22)
--- NOTE | 2024-12-20 16:00 | OT.IPNOTE ---
Pt not wanting to do therapy as waiting to get her drains and dressing taken care of with nursing.
--- NOTE | 2024-12-20 16:05 | PT-IP ANOTE ---
OT informed PT that pt wants to let PT know that she cannot do PT today. stated that her dressing/drains will be work on by nursing and that she will not be able to do PT.
--- NOTE | 2024-12-20 16:06 | P.PN_ITS ---
Subjective Subjective Interval history: Summary: 79 yo female w/hypothyroidism, HTN, HLD, GLORIA and LTKA for OA in September admitted w/incarcerated hernia 12/03/24.? She underwent small bowel resection w/open repair of right femora hernia on the day of admit.? She developed an enterocutaneous fistula post-op which had highout put that had been difficult to contain.? On 12/14 she returned to the OR for laparotomy with small bowel resection and wound vac exchange. S: Feels bloated and swoolen but improving. Feels like she has to have a bowel movement but this has been difficult the last few days. Exam Vital Signs (past 8 hours): Fraction of Inspired Oxygen 28 SaO2/FiO2 Ratio 328 Oxygen Delivery Method Room Air Oxygen Flow Rate 0 Narrative Exam Narrative: NAD, alert and oriented. Fluent speech. Lungs are clear, normal rate and effort. Heart is regular, no murmur gallop or rub. Abdomen is soft, non distended. Midline incisional wound distress, 2 drains. There is a right groin wound VAC in place. There is no pain with palpation. Extremities are free of edema. Objective Labs 12/20/24 04:41 12/20/24 04:41 Labs: Laboratory Results - last 24 hr 12/20/24 04:41 WBC 7.8 RBC 2.80 L Hgb 8.2 L Hct 25.0 L MCV 89.3 MCH 29.2 MCHC 32.7 RDW 16.9 H Plt Count 530 H Sodium 130 L Potassium 4.2 Chloride 96 L Carbon Dioxide 30 BUN 20 H Creatinine 0.60 Estimated GFR > 60 BUN/Creatinine Ratio 33.3 H Glucose 95 Calcium 7.8 L Phosphorus 2.9 Magnesium 2.1 Total Bilirubin 0.2 AST 67 H ALT 52 H Alkaline Phosphatase 109 Total Protein 5.9 L Albumin 2.9 L Globulin 3.0 Albumin/Globulin Ratio 1.0 [facility] Medical History History of COVID-19 (05/2024) Hiatal hernia Serum sodium decreased Encounter for subsequent annual wellness visit (AWV) in Medicare patient Vision disorder Rosacea Shoulder pain (~2014) Foot pain Measles Chicken pox (~1949) Hearing loss (~2021) Cataracts, bilateral (~2014) History of urinary incontinence Neutropenia 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 Allergic rhinitis Osteoarthritis (~1997) Obstructive sleep apnea of adult Primary insomnia Lichen sclerosus et atrophicus Vitamin D deficiency Chronic cough Osteopenia HTN (hypertension) (~2009) Hyperlipidemia Surgical History 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) Hx of LASIK Anesthesia History of hand surgery (~2022) History of breast mammoplasty S/P foot surgery, right S/P UVPP (uvulopalatopharyngoplasty) Hx of bilateral breast reduction surgery S/P trigger finger release History of facelift Hx of bladder repair surgery Hx of partial thyroidectomy Hx of partial thyroidectomy Family History Mother Heart attack Brother History of heart disease Social History household members: none occupational status: previously employed Smoking Status: Never smoker alcohol intake: current substance use type: does not use Assessment & Plan Assessment & Plan narrative: 1. Postoperative from small-bowel resection and wound VAC exchange for a high volume enterocutaneous fistula after initial small-bowel resection with open repair of right femoral hernia. Her diet is slowly improving, will stop TPN after today's bag finishes. Continue to monitor caloric intake and progress as TPN shut off. appreciate discussion with surgery today, changed from zosyn to augmentin. Surgeon plans to change wound vac dressing tomorrow. If it appears clear may discontinue antibiotics. States patient can transition to rehab on Wednesday if everything appears well. 2. Acute blood loss anemia, stable. Hemoglobin was stable at 9.7 on 12/15/2024. Sudden drop without obvious cause yesterday, repeat improved now stable x4 around Hg of 8.0. 3. Electrolyte derangements including hypokalemia and hypophosphatemia, improved. Continue to replete with IV electrolyte replacement. potassium now improved at 4.2 today. 4. Hyponatremia, stable. Sodium is improved today up to 130 now. 5. Hypothyroidism, stable Continue levothyroxine 6. Hypertension, stable Blood pressures are stable Plan: -off TPN -surgeon to change wound vac dressing tomorrow. -continue right groin wound VAC. -[facility] nursing facility when off TPN for 24 hours. Per surgery okay for discharge likely on Wednesday, but will depend on dressing change tomorrow. Code status Full Prophylaxis On b.i.d. aspirin 81 mg Disposition She has been accepted [facility]. Tolerating diet. Surgery still with local wound care here in the hospital. Possible discharge to SNF if 2 days. Time-Based Coding :: [TOTAL MINUTES] spent with patient and on the chart (including review of chart, obtaining history, exam, reviewing outside data, placing orders, documenting exam and treatment plan, and counseling patient) on [DATE].
--- NOTE | 2024-12-20 17:06 | PC.NURSE ---
Pt back to bed for INDU drain removal x 2. Pt tolerated well, allevyn dsg's applied to drain holes and blister on top of left thigh. Suppository given. Pt now receiving a bed bath and fresh gown.
[2024-12-20 20:00] VITALS: BP 147/68; PULSE 95; RESP 19; TEMP 35.8; O2SAT 95
[2024-12-20] MEDS: AMOXICILLIN/CLAV 875/125 MG 1 TAB PO (21:04)
[2024-12-20] MEDS: ATORVASTATIN 20 MG TABLET 10 MG PO (21:05)
[2024-12-20 21:06] VITALS: BP 147/68; PULSE 95
[2024-12-20] MEDS: lisinopriL 10 MG TABLET PO (21:06)
[2024-12-21] MEDS: HEPARIN 5,000 UNIT/ML VIAL 5000 UNIT SUBCUT ×3 (06:11→21:46)
[2024-12-21] MEDS: LEVOTHYROXINE 100 MCG TABLET PO (06:11)
[2024-12-21] MEDS: PANTOPRAZOLE DR 40 MG TABLET PO (06:11)
--- NOTE | 2024-12-21 09:10 | PT-IP ANOTE ---
Kaila was sitting up in her bedside chair eating her breakfast when I checked in with her for PT treatment. She reported she had already been up and walked in the room with walker and is now eating and did not wish to walk again of work with PT She reports being up all night as he wound vac was beeping. She notes she did have a bowel movement last night as well.
[2024-12-21 09:49] VITALS: BP 122/52; PULSE 83; RESP 19; TEMP 36.4; O2SAT 93
[2024-12-21] MEDS: AMOXICILLIN/CLAV 875/125 MG 1 TAB PO ×2 (11:01→20:11)
[2024-12-21] MEDS: ASPIRIN EC 81 MG TABLET PO ×2 (11:01→20:11)
[2024-12-21] MEDS: SODIUM CHLORIDE 0.9% FLUSH 10 ML IV ×2 (11:01→20:15)
[2024-12-21] MEDS: ACETAMINOPHEN 325 MG TABLET 650 MG PO ×2 (11:01→20:11)
[2024-12-21] MEDS: FUROSEMIDE 40 MG TABLET PO ×2 (11:01→17:54)
--- NOTE | 2024-12-21 14:05 | PC.NURSE ---
Patients wound vac dressing changed by surgeon. Wound to r.lower abdomen cleaned out with betadine, area looked beefy red and clean. Every other staple taken out of ml incision with several still in. She tolerated all of this well. Patient has been up to use the bsc a couple of times now and is resting comfortable. She is particular about everything but pleasant and cooperative.
--- NOTE | 2024-12-21 14:53 | PM.PNPO.1 ---
Subjective Subjective Date Patient Seen: 12/21/24 Time Patient Seen: 10:00 Exam Vital Signs (past 8 hours): - 12/21/24 09:49 Temperature 97.6 F Pulse Rate 83 Respiratory Rate 19 Blood Pressure 122/52 L Pulse Oximetry 93 Oxygen Flow Rate 0 Fraction of Inspired Oxygen 28 SaO2/FiO2 Ratio 328 Oxygen Delivery Method Room Air Oxygen Flow Rate 0 Narrative Exam Narrative: The right groin wound is nicely healing, NO MAJOR PURULENT DISCHARGE anymore, will stop the Augmentin after 3 more days, and we removed every other staple of her midline laparotomy, next they NEED TO REMOVE ALL THE REMAINING DEMARIO. She is doing VERY WELL!, THANK GOD. Objective Labs 12/20/24 04:41 12/20/24 04:41 [facility] Medical History History of COVID-19 (05/2024) Hiatal hernia Serum sodium decreased Encounter for subsequent annual wellness visit (AWV) in Medicare patient Vision disorder Rosacea Shoulder pain (~2014) Foot pain Measles Chicken pox (~1949) Hearing loss (~2021) Cataracts, bilateral (~2014) History of urinary incontinence Neutropenia 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 Allergic rhinitis Osteoarthritis (~1997) Obstructive sleep apnea of adult Primary insomnia Lichen sclerosus et atrophicus Vitamin D deficiency Chronic cough Osteopenia HTN (hypertension) (~2009) Hyperlipidemia Surgical History 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) Hx of LASIK Anesthesia History of hand surgery (~2022) History of breast mammoplasty S/P foot surgery, right S/P UVPP (uvulopalatopharyngoplasty) Hx of bilateral breast reduction surgery S/P trigger finger release History of facelift Hx of bladder repair surgery Hx of partial thyroidectomy Hx of partial thyroidectomy Family History Mother Heart attack Brother History of heart disease Social History household members: none occupational status: previously employed Smoking Status: Never smoker alcohol intake: current substance use type: does not use Assessment & Plan Post-op Postoperative Procedures: Procedures Operation Date: 12/03/24 22:15 Actual Procedure Side Surgeon p Hernia Repair - Inguinal, small bowel resection Right Fuad Singh MD Operation Date: 12/14/24 12:30 Actual Procedure Side Surgeon p Laparotomy, wound vac exchange, SMALL BOWEL RESECTION Fuad Singh MD Postoperative status narrative: The right groin wound is nicely healing, NO MAJOR PURULENT DISCHARGE anymore, will stop the Augmentin after 3 more days, and we removed every other staple of her midline laparotomy, next they NEED TO REMOVE ALL THE REMAINING DEMARIO. She is doing VERY WELL!, THANK GOD.
--- NOTE | 2024-12-21 18:30 | PM.PN.1 ---
Subjective Subjective Interval history: Summary: 79 yo female w/hypothyroidism, HTN, HLD, GLORIA and LTKA for OA in September admitted w/incarcerated hernia 12/03/24.? She underwent small bowel resection w/open repair of right femora hernia on the day of admit.? She developed an enterocutaneous fistula post-op which had highout put that had been difficult to contain.? On 12/14 she returned to the OR for laparotomy with small bowel resection and wound vac exchange. S: No changes today. No purulent drainage at wound vac change today. Exam Vital Signs (past 8 hours): Fraction of Inspired Oxygen 28 SaO2/FiO2 Ratio 328 Oxygen Delivery Method Room Air Oxygen Flow Rate 0 Narrative Exam Narrative: NAD, alert and oriented. Fluent speech. Lungs are clear, normal rate and effort. Heart is regular, no murmur gallop or rub. Abdomen is soft, non distended. Objective Labs 12/20/24 04:41 12/20/24 04:41 [facility] Medical History History of COVID-19 (05/2024) Hiatal hernia Serum sodium decreased Encounter for subsequent annual wellness visit (AWV) in Medicare patient Vision disorder Rosacea Shoulder pain (~2014) Foot pain Measles Chicken pox (~1949) Hearing loss (~2021) Cataracts, bilateral (~2014) History of urinary incontinence Neutropenia 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 Allergic rhinitis Osteoarthritis (~1997) Obstructive sleep apnea of adult Primary insomnia Lichen sclerosus et atrophicus Vitamin D deficiency Chronic cough Osteopenia HTN (hypertension) (~2009) Hyperlipidemia Surgical History 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) Hx of LASIK Anesthesia History of hand surgery (~2022) History of breast mammoplasty S/P foot surgery, right S/P UVPP (uvulopalatopharyngoplasty) Hx of bilateral breast reduction surgery S/P trigger finger release History of facelift Hx of bladder repair surgery Hx of partial thyroidectomy Hx of partial thyroidectomy Family History Mother Heart attack Brother History of heart disease Social History household members: none occupational status: previously employed Smoking Status: Never smoker alcohol intake: current substance use type: does not use Assessment & Plan Assessment & Plan narrative: 1. Postoperative from small-bowel resection and wound VAC exchange for a high volume enterocutaneous fistula after initial small-bowel resection with open repair of right femoral hernia. Her diet is slowly improving, will stop TPN after today's bag finishes. Continue to monitor caloric intake and progress as TPN shut off. appreciate discussion with surgery today, changed from zosyn to augmentin. Augmentin can be discontinued after 3 days. Can transition to rehab tomorrow needs remaining kathleen removed in 1 week per surgeon. 2. Acute blood loss anemia, stable. Hemoglobin was stable at 9.7 on 12/15/2024. Sudden drop without obvious cause yesterday, repeat improved now stable x4 around Hg of 8.0. 3. Electrolyte derangements including hypokalemia and hypophosphatemia, improved. Continue to replete with IV electrolyte replacement. potassium now improved at 4.2 today. 4. Hyponatremia, stable. Sodium is improved today up to 130 now. 5. Hypothyroidism, stable Continue levothyroxine 6. Hypertension, stable Blood pressures are stable Plan: - SNF tomorrow. Code status Full Prophylaxis On b.i.d. aspirin 81 mg Disposition She has [facility] accepted [facility]. Tolerating diet. Plan for tomorrow after surgery eval today. Time-Based Coding :: [TOTAL MINUTES] spent with patient and on the chart (including review of chart, obtaining history, exam, reviewing outside data, placing orders, documenting exam and treatment plan, and counseling patient) on [DATE].
[2024-12-21 20:00] VITALS: BP 127/61; PULSE 96; RESP 18; TEMP 36.7; O2SAT 95
[2024-12-21 20:13] VITALS: BP 120/50; PULSE 83
[2024-12-21] MEDS: ATORVASTATIN 20 MG TABLET 10 MG PO (20:14)
[2024-12-21] MEDS: FLUTICASONE 120 SPRAY/16 GM SPRAY.SUSP NASAL (20:15)
[2024-12-22] MEDS: HEPARIN 5,000 UNIT/ML VIAL 5000 UNIT SUBCUT (06:38)
[2024-12-22] MEDS: LEVOTHYROXINE 100 MCG TABLET PO (06:38)
[2024-12-22] MEDS: PANTOPRAZOLE DR 40 MG TABLET PO (06:38)
[2024-12-22] MEDS: ASPIRIN EC 81 MG TABLET PO (09:17)
[2024-12-22] MEDS: ACETAMINOPHEN 325 MG TABLET 650 MG PO (09:17)
[2024-12-22] MEDS: polyethylene glycoL 3350 17 GM POWD.PACK PO (09:18)
[2024-12-22] MEDS: FUROSEMIDE 40 MG TABLET PO (09:18)
[2024-12-22] MEDS: SODIUM CHLORIDE 0.9% FLUSH 10 ML IV (09:18)
[2024-12-22] MEDS: AMOXICILLIN/CLAV 875/125 MG 1 TAB PO (09:18)
--- NOTE | 2024-12-22 10:20 | PC.NURSE ---
Addendum entered by Gill Nunes R.N. 12/22/24 13:09: Report called to [facility], patient will be picked up at 1330. Original Note: Patient is happy today, she has a wound vac in place at 125mm of suction, red drainage in canister. Plan is for patient to discharge across the [facility] to [facility] today at 1330. Dressing was replaced to r.groin area yesterday and she tolerated this well, tolerating wound vac suction well.
[2024-12-22 12:05] VITALS: BP 117/54; PULSE 84; RESP 19; TEMP 36.9; O2SAT 97
--- NOTE | 2024-12-22 12:31 | P.DS_ITS ---
History of Present Illness History of Present Illness Date Patient Seen: 12/22/24 Time Patient Seen: 08:30 Date of Onset of Symptoms: 12/03/24 Chief complaint: dehydration, urinary problem Narrative: 79 year old female with past medical history of hypothyroidism, HTN, HLD, GLORIA and recent left knee surgery 8 weeks ago presents with nausea and vomiting. Per the patient's report, over the last 5 days, the patient letty been feeling overall sick with nausea and vomiting. The patient also has lower abdominal pain that is sharp and intermittent. The patient symptoms was severe yesterday and the patient has not able to drink or eat any food yesterday. The patient feels fatigue and generalized weakness. The patient otherwise denies any GIB, fever, chills, chest pain, shortness of breath, coughing or dysuria. In our ER, the patient was found to have incarcerated inguinal hernia per CT. Lab shows no sign of sepsis (though WBC 15 but normal lactic acid) but sodium was 112 with low chloride. General surgery was consulted and patient was given NS, IV Zosyn and Zofran. General surgery plan for urgent need for surgery. Continue antibiotics according to general surgery reccomendation. Discharge Providers Provider Date of admission: 12/03/24 19:49 Discharge Date: 12/22/24 Primary care physician: Ruben Wheeler DO Consults: 12/03/24 19:30 Consult to General Surgery Stat Comment: Consulting Provider: Fuad Singh Reason for consultation: Small-bowel obstruction Has provider been notified: Yes 12/03/24 19:54 Consult to Occupational Therapy Evaluate & Treat Comment: Physician Instructions: Evaluate and treat Consult to Physical Therapy Evaluate & Treat Comment: Physician Instructions: Evaluate and Treat 12/04/24 00:44 Consult to Dietitian, Adult Routine Comment: Reason For Exam: GI surgery, bowel problems/lack of appetite 12/14/24 09:12 Consult to Dietitian, Adult Routine Comment: Reason For Exam: TPN 12/16/24 14:10 Consult to Occupational Therapy Evaluate & Treat Comment: Physician Instructions: Evaluate and treat Consult to Physical Therapy Evaluate & Treat Comment: Physician Instructions: Evaluate and Treat Discharge provider: Yanick Chin MD Summary Hospital Course Discharge Diagnosis: 1. Strangulated right femoral hernia, status post small bowel resection with anastomosis and open repair of right femoral hernia on 12/03/2024. 2. Enterocutaneous fistula complicating primary repair, status post laparotomy with small-bowel resection and exchange of wound VAC on 12/14/2024. 3. Acute blood loss anemia. 4. Electrolyte derangements including hypokalemia and hypophosphatemia. 5. Hyponatremia. 6. Hypothyroidism. 7. Hypertension. 8. Peripheral edema due to volume resuscitation. Hospital Course: The patient was admitted and underwent small-bowel resection with anastomosis and open repair of a strangulated right femoral hernia on 12/03/[address] Fuad Singh without incident. The postoperative diagnosis was gangrenous small bowel with perforation, with pathology showing a segment of small bowel with perforation, extensive mucosal ulceration, and transmural hemorrhagic necrosis, resection margins viable, and no evidence of malignancy. She had a prolonged postoperative course notable for blood-loss anemia, hyponatremia, ileus and weakness, and was treated with bowel rest, TPN, IV hydration, pain control and electrolyte management. Her sodium improved from a cole of 117 to 130 at the time of discharge. Most of her postoperative course was due to ongoing severe weakness, dehydration and postoperative ileus. Her wounds demonstrated evidence of postoperative infection and was packed and ultimately a wound VAC placed. Unfortunately, the patient's developed an enterocutaneous fistula that became high output and underwent laparotomy with small-bowel resection and exchange of wound VAC on 12/14/2024. Pathology showed a segment of small bowel with active serositis and focal abscess formation and no dysplasia, malignancy, or infectious organisms identified. All cultures remained negative throughout the hospitalization. Subsequent review of the 12/03/2024 pathology reported that the micro- and macroscopic features are compatible with the history of prior surgery with failure of the anastomosis. She subsequently was treated with ongoing antibiotics, transitioned to oral antibiotics, with every other staple removed on 12/21/2024 with plans to remove remaining kathleen on 12/28/2024 at her nursing facility, and ongoing wound VAC to be directed by surgery. She was able to tolerate a general diet at the time of discharge with supplementation as advised by dietary. Arrangements arrange for ongoing rehabilitation at a local longterm facility. Status at Discharge Cognitive/behavioral status at discharge: oriented Functional status at discharge: uses cane/walker Overall status at discharge: patient is progressing back to baseline Exam Vital Signs (past 8 hours): - 12/22/24 12:05 Temperature 98.4 F Pulse Rate 84 Respiratory Rate 19 Blood Pressure 117/54 L Pulse Oximetry 97 Oxygen Flow Rate 0 Fraction of Inspired Oxygen 28 SaO2/FiO2 Ratio 328 Oxygen Delivery Method Room Air Oxygen Flow Rate 0 Narrative Exam Narrative: NAD, alert and oriented. Fluent speech. Lungs are clear, normal rate and effort. Heart is regular, no murmur gallop or rub. Abdomen is soft, non distended. Low midline abdominal kathleen in place, incision without erythema, discharge, wound edges well apposed, right lower quadrant wound VAC in place. Extremities with 1+ edema Objective Imaging *: Radiologist's impression: 1. Abdomen/pelvis CT 12/03/2024: Right groin hernia containing a small bowel loop, causing a small-bowel obstruction, with a transition point identified within the hernia. There is a moderate hiatal hernia, with wall thickening involving the distal esophagus. Please correlate with esophagitis/reflux. Additional findings: Moderate levoconvex lumbar scoliosis Calcified uterine fibroids 2. Chest x-ray 12/03/2024: Cardiomegaly, without a focal pulmonary abnormality. 3. Chest x-ray 12/06/2024: Cardiomegaly. Development of small left pleural effusion and probable associated left basilar atelectasis. 4. Abdomen/pelvis CT 12/10/2024: Right inguinal postsurgical changes demonstrating subcutaneous air as well as heterogeneous attenuation collection. The latter is suspicious for phlegmon/developing abscess at the surgical site. In addition, several small punctate areas of air are also present in the lower right pelvis extending from the inguinal region toward the bladder. These appear most likely related to recent surgery. 6. Chest/abdomen/pelvis CT 12/12/2024: Fluid soft tissue density and air remain in the right inguinal region at surgical site slightly less prominent when compared to prior exam. However, there remains areas fluid, air and overlapping bowel loops within the right lower pelvis at the surgical site. Overall appearance is relatively unchanged compared to prior exam. Area of developing abscess/phlegmon or potentially perforation cannot be excluded given confluent structures of fluid, bowel, soft tissue and air. Further delineation of structures within the surgical region may be better evaluated with contrast within the small bowel within this region. Otherwise, surgical consultation is recommended. 7. Chest x-ray 12/13/2024: Tip of PICC projects to the area of mid SVC. Labs 12/20/24 04:41 12/20/24 04:41 PENDING SALE TO [facility] Medical History Allergic rhinitis Cataracts, bilateral (~2014) Chicken pox (~1949) Chronic cough Encounter for subsequent annual wellness visit (AWV) in Medicare patient Foot pain Hearing loss (~2021) Hiatal hernia History of COVID-19 (05/2024) History of urinary incontinence HTN (hypertension) (~2009) Hyperlipidemia Hypothyroidism associated with surgical procedure (~1959) Lichen sclerosus et atrophicus Measles Neutropenia Obstructive sleep apnea of adult Osteoarthritis (~1997) Osteopenia Primary insomnia Rosacea Serum sodium decreased Shoulder pain (~2014) Varicosities of leg Vision disorder Vitamin D deficiency Surgical History Anesthesia History of breast mammoplasty History of facelift History of hand surgery (~2022) 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) Hx of bilateral breast reduction surgery Hx of bladder repair surgery Hx of LASIK Hx of partial thyroidectomy Hx of partial thyroidectomy S/P foot surgery, right S/P trigger finger release S/P UVPP (uvulopalatopharyngoplasty) Family History Mother Heart attack Brother History of heart disease Social History household members: none occupational status: previously employed Smoking Status: Never smoker alcohol intake: current substance use type: does not use Discharge Plan Discharge Plan Patient Disposition: SNF Transfer to: [facility] Consult as needed: Dental, Hearing, Mental health, Podiatry and Vision Provider Discharge Comment: Check BMP and CBC 1 week; woundvac management per surgery with surgery followup as directed Discharge orders & Medications Prescriptions: New furosemide 40 mg Tablet 40 mg PO 0800,1700 7 Days Qty: 14 0RF amoxicillin-pot clavulanate 875-125 mg Tablet 1 tab PO BID 3 Days Qty: 6 0RF Continued pantoprazole [Protonix] 40 mg tablet,delayed release (DR/EC) 40 mg PO DAILY Qty: 30 2RF Patient Comments: not taking atorvastatin 10 mg tablet 10 mg PO DAILY Qty: 90 3RF levothyroxine [Synthroid] 100 mcg tablet 100 mcg PO DAILY Qty: 90 3RF lisinopril 10 mg tablet 10 mg PO BEDTIME Qty: 90 3RF meloxicam 15 mg tablet 15 mg PO DAILY Qty: 90 3RF clobetasol 0.05 % cream 1 applic topical DAILY Qty: 60 3RF Premarin 0.625 mg/gram cream 0.3125 mg Vaginal QWEEK Qty: 30 3RF aspirin 81 mg Tablet,Delayed Release (Dr/Ec) 81 mg PO BID Qty: 90 0RF docusate sodium 100 mg Capsule 100 mg PO BID PRN (Reason: Constipation) Qty: 30 0RF ondansetron 4 mg Tablet,Disintegrating 4 mg PO Q4-8H PRN (Reason: Nausea And Vomiting) Qty: 10 0RF acetaminophen 650 mg Tablet Extended Release 650 mg PO Q6H PRN (Reason: Pain) Qty: 90 0RF (DME) Resmed Airsense 10 CPAP Qty: 1 Dose Instruction: As directed Patient Comments: Pressure: 5-12 cmH2O DME: [facility] Instructions: As directed Discontinued oxycodone 5 mg Tablet 5 mg PO Q4-6H PRN (Reason: Pain, Moderate (4-6)) Qty: 30 0RF Follow up/Referrals: Ruben Wheeler DO [Primary Care Provider] - Diet/Activity/Treatments Diet: Regular and Low-sodium Skin/Wound/Dressing Care Report to your healthcare provider any signs of infection, such as:: chills, fever, night sweats, increased pain, unusual drainage and unusual redness Special Rehabilitation Services Rehab type: Physical therapy and Occupational therapy Visit Report/Discharge Packet Stand Alone Forms: Patient Portal/API Discharge Data Primary Care Provider: Ruben Wheeler Quality MIPS - Admit I confirm the patient?s Advance Care Plan is present, Code status is documented, Surrogate decision maker is in patient?s record [If Yes, STOP here]: Yes MIPS - Meds 'Current medications' to include all prescriptions, [id number] products, herbals, cannabis/cannabidiol products, and vitamin/mineral/dietary (nutritional) supplements. I have utilized all available resources to obtain, update, or review the patient?s current medications. [If Yes, STOP here]: Yes MIPS - DC The patient has a history of heart transplant or Left Ventricular Assist Device (LVAD). If yes, STOP here.: No The patient has current or prior documentation of left ventricular ejection fraction (LVEF) less than or equal to 40%, or moderate or severely depressed left ventricular systolic function.: No A. The patient was prescribed or already taking an Angiotensin-Converting Enzyme (LISSY) Inhibitor, or Angiotensin Receptor Santana (ARB).: Yes B. The patient was prescribed or already taking a beta-santana. [If Yes to Both A & B, STOP here]: No Patient not prescribed/taking LISSY or ARB, no reason given.: No Patient not prescribed/taking beta-santana, no reason given.: No PROFEE Charge Codes Discharge inpatient/observation: [id number]
--- NOTE | 2024-12-22 12:44 | CM.DPC ---
SNF DCP Continued: Reviewed EMR and team rounds for pt?s medical status. Per hospitalist, pt medically cleared to discharge to [facility]. [facility] accepts for 1:30pm wheelchair transport. DCP discussed above with hospitalist, RN, ROSENDA and patient. PASRR, Signed Med List and DC Summary all sent to [facility]. Plan: [facility] discharge on 12/22 at 1:30pm via their facility van. CM Team will continue to follow for coordination of discharge plans. FRANCISCO Rees
== END 2024-12-22 14:19 | DRG 329 ==
LOC: ED 19:30 → AC 19:49 → ICU 12-04 00:08 → AC 12-08 17:13
PROVIDERS: Family Medicine; Hospitalist; Internal Medicine; Nurse Anesthetist, Certified Registered; Physician Assistant; Surgery; Admitting Provider Internal Medicine; Emergency Provider Emergency Medicine; Family Provider Family Medicine; PCP Family Medicine; Referring Provider Emergency Medicine; Visit Provider Internal Medicine
PROC: 0DB80ZZ Excision of Small Intestine, Open Approach (ICD-10-PCS; principal; 2024-12-03 22:15)
PROC: 0DBB0ZZ Excision of Ileum, Open Approach (ICD-10-PCS; CPT 49000; principal; 2024-12-14 12:30)
DX: K41.40 Unilateral femoral hernia, with gangrene, not specified as recurrent (principal); E43 Unspecified severe protein-calorie malnutrition; K63.1 Perforation of intestine (nontraumatic); K65.9 Peritonitis, unspecified; E87.1 Hypo-osmolality and hyponatremia; D62 Acute posthemorrhagic anemia; T81.41XA Infection following a procedure, superficial incisional surgical site, initial encounter; L02.214 Cutaneous abscess of groin; K63.2 Fistula of intestine; K91.89 Other postprocedural complications and disorders of digestive system; E86.0 Dehydration; E03.9 Hypothyroidism, unspecified; I10 Essential (primary) hypertension; E78.5 Hyperlipidemia, unspecified; E83.42 Hypomagnesemia; E87.70 Fluid overload, unspecified; G47.33 Obstructive sleep apnea (adult) (pediatric); E87.6 Hypokalemia; R13.10 Dysphagia, unspecified; E86.1 Hypovolemia; Y83.2 Surgical operation with anastomosis, bypass or graft as the cause of abnormal reaction of the patient, or of later complication, without mention of misadventure at the time of the procedure; Y73.3 Surgical instruments, materials and gastroenterology and urology devices (including sutures) associated with adverse incidents; I95.9 Hypotension, unspecified; E83.39 Other disorders of phosphorus metabolism; Z96.652 Presence of left artificial knee joint; Z68.30 Body mass index [BMI] 30.0-30.9, adult; Z79.890 Hormone replacement therapy
CPT/HCPCS: 0241U; 36415; 36569; 71045; 71260; 74177; 80048; 80053; 81001; 81003; 82550; 82962; 83605; 83690; 83735; 83880; 84100; 84134; 84145; 84439; 84443; 84478; 84484; 85007; 85014; 85018; 85025; 85027; 85610; 85730; 87040; 87070; 87075; 87147; 87205; 87493; 87797; 93005; 93010; 94762; 96361; 96365; 96375; 97116; 97162; 97164; 97166; 97530; 97535; 99285; B4185; B4189; J0330; J0666; J1100; J1171; J1642; J1644; J1815; J1940; J2250; J2354; J2405; J2470; J2543; J2704; J2916; J3010; J3475; J3490; Q9967

== ENCOUNTER → 2025-01-12 02:03 | Outpatient (ROUT) | payer MEDICARE, OTHER, SELFPAY ==
[2024-12-03 21:00] VITALS: BMI 30.2
[2025-01-12 02:08] LABS: Appearance Urine UA CLEAR; Bilirubin Urine UA NEGATIVE (NEGATIVE); Color Urine UA YELLOW; Glucose Urine UA NEGATIVE (Negative); Ketones Urine UA NEGATIVE (NEGATIVE); Leukocyte Esterase Urine UA NEGATIVE (NEGATIVE); Nitrite Urine UA NEGATIVE (Negative); Occult Blood Urine UA NEGATIVE (Negative); Protein Urine UA NEGATIVE (Negative); Urobilinogen Urine UA 0.2 E.U./dL (0.2)
[2025-01-12 02:16] LABS: Bacteria Urine None Seen; Culture Indicated Urine Cult Not Indicated; RBC Urine None Seen (0-5/HPF); Squamous Epithelial Cell Urine 0-1 /HPF (0-5/HPF); Urine Volume 10mL (spun); WBC Urine None Seen (0-5/HPF)
== END ==
PROVIDERS: Family Provider Family Medicine; PCP Family Medicine; Visit Provider Hospitalist
DX: M19.90 Unspecified osteoarthritis, unspecified site (principal); Z48.815 Encounter for surgical aftercare following surgery on the digestive system; K40.30 Unilateral inguinal hernia, with obstruction, without gangrene, not specified as recurrent; K56.601 Complete intestinal obstruction, unspecified as to cause; E87.1 Hypo-osmolality and hyponatremia; I10 Essential (primary) hypertension; E78.5 Hyperlipidemia, unspecified
CPT/HCPCS: 81001

== ENCOUNTER → 2025-01-15 10:17 | Outpatient (CLI) | payer MEDICARE, OTHER, SELFPAY ==
[2024-12-03 21:00] VITALS: BMI 30.2
== END ==
PROVIDERS: Family Provider Family Medicine; PCP Family Medicine; Referring Provider Hospitalist; Visit Provider Surgery
DX: T81.89XA Other complications of procedures, not elsewhere classified, initial encounter (principal); S31.103A Unspecified open wound of abdominal wall, right lower quadrant without penetration into peritoneal cavity, initial encounter; S31.105A Unspecified open wound of abdominal wall, periumbilic region without penetration into peritoneal cavity, initial encounter
CPT/HCPCS: 11042; 97605; 99203; 99214

== ENCOUNTER → 2025-01-18 09:31 | Outpatient (CLI) | payer MEDICARE, OTHER, SELFPAY ==
[2024-12-03 21:00] VITALS: BMI 30.2
== END ==
PROVIDERS: Family Provider Family Medicine; PCP Family Medicine; Referring Provider Family Medicine; Visit Provider Surgery
DX: T81.89XA Other complications of procedures, not elsewhere classified, initial encounter (principal); S31.103A Unspecified open wound of abdominal wall, right lower quadrant without penetration into peritoneal cavity, initial encounter
CPT/HCPCS: 97605

== ENCOUNTER → 2025-01-22 15:33 | Outpatient (CLI) | payer MEDICARE, OTHER, SELFPAY ==
[2025-01-19 14:12] VITALS: BMI 30.2
== END ==
PROVIDERS: Family Provider Family Medicine; PCP Family Medicine; Referring Provider Hospitalist; Visit Provider Surgery
DX: T81.89XA Other complications of procedures, not elsewhere classified, initial encounter (principal); S31.103A Unspecified open wound of abdominal wall, right lower quadrant without penetration into peritoneal cavity, initial encounter; S31.105A Unspecified open wound of abdominal wall, periumbilic region without penetration into peritoneal cavity, initial encounter; I10 Essential (primary) hypertension
CPT/HCPCS: 11042; 97605

== ENCOUNTER → 2025-01-29 08:38 | Outpatient (CLI) | payer MEDICARE, OTHER, SELFPAY ==
[2025-01-19 14:12] VITALS: BMI 30.2
[2025-01-29 09:55] LABS: Hematocrit 27.7 % (36-46); Hemoglobin 9.2 g/dL (12.0-16.0); Mean Corpuscular HGB Conc 33.2 % (30-36); Mean Corpuscular Hemoglobin 28.5 PG (26-34); Mean Corpuscular Volume 85.8 fL (80-100); Platelet Count 435 X10^3/uL (150-400); Red Blood Cell Count 3.23 X10^6/uL (4.0-5.2); Red Cell Distribution Width 19.8 % (11.6-14.8); White Blood Cell Count 6.6 X10^3/uL (4.5-11.0)
[2025-01-29 09:57] LABS: BUN Creatinine Ratio 55.7 (6-22); Blood Urea Nitrogen 34 mg/dL (7-17); Calcium 9.3 mg/dL (8.4-10.2); Carbon Dioxide 25 mmol/L (22-32); Chloride 95 mmol/L (98-107); Estimated Glomerular Filt Rate > 60 mL/min (>60); Glucose 103 mg/dL (80-110); HEMOLYSIS 27 (0-50); Magnesium 2.2 mg/dL (1.6-2.3); Sodium 129 mmol/L (137-145)
[2025-01-29 10:18] LABS: Add Manual Diff / Slide Review YES
[2025-01-29 11:37] LABS: Neutrophils Absolute Manual 5346 /uL (3000-5900); Total Cells Counted 100
[2025-01-29 11:38] LABS: Anisocytosis 2+; Platelet Estimate Adeq
== END ==
PROVIDERS: Family Provider Family Medicine; PCP Family Medicine; Referring Provider Family Medicine; Visit Provider Family Medicine
DX: E87.1 Hypo-osmolality and hyponatremia (principal); I10 Essential (primary) hypertension; D64.9 Anemia, unspecified; E83.42 Hypomagnesemia; E87.6 Hypokalemia
CPT/HCPCS: 36415; 80048; 83735; 85007; 85025

== ENCOUNTER → 2025-01-29 15:07 | Outpatient (CLI) | payer MEDICARE, OTHER, SELFPAY ==
[2025-01-19 14:12] VITALS: BMI 30.2
== END ==
PROVIDERS: Family Provider Family Medicine; PCP Family Medicine; Referring Provider Hospitalist; Visit Provider Surgery
DX: T81.89XA Other complications of procedures, not elsewhere classified, initial encounter (principal); S31.103A Unspecified open wound of abdominal wall, right lower quadrant without penetration into peritoneal cavity, initial encounter; S31.105A Unspecified open wound of abdominal wall, periumbilic region without penetration into peritoneal cavity, initial encounter
CPT/HCPCS: 11042; 97605

== ENCOUNTER → 2025-02-05 15:40 | Outpatient (CLI) | payer MEDICARE, OTHER, SELFPAY ==
[2025-01-19 14:12] VITALS: BMI 30.2
== END ==
PROVIDERS: Family Provider Family Medicine; PCP Family Medicine; Referring Provider Family Medicine; Visit Provider Surgery
DX: S31.103A Unspecified open wound of abdominal wall, right lower quadrant without penetration into peritoneal cavity, initial encounter (principal); S31.105A Unspecified open wound of abdominal wall, periumbilic region without penetration into peritoneal cavity, initial encounter
CPT/HCPCS: 11042

== ENCOUNTER → 2025-02-12 10:56 | Outpatient (CLI) | payer MEDICARE, OTHER, SELFPAY ==
[2025-01-19 14:12] VITALS: BMI 30.2
--- NOTE | 2025-02-12 | OV.WND_ITS ---
PROGRESS NOTE DETAILS PATIENT NAME: GLORIA ZAMORA PATIENT NUMBER: [id number] CLINICIAN: GEORGI SOSA PATIENT DATE OF : 1945 PHYSICIAN / AUTOMATIC DEVELOPER: DUC MENENDEZ PATIENT SUBJECTIVE CHIEF COMPLAINT THIS INFORMATION WAS OBTAINED FROM THE PATIENT. MAY HAVE GOTTEN WET IN SHOWER WOUNDS TO ABD ALLERGIES CLAVULANIC ACID, CODEINE, SULFAMETHOXAZOLE, TRIMETHOPRIM HPI THIS INFORMATION WAS OBTAINED FROM THE PATIENT. THE FOLLOWING HPI ELEMENTS WERE DOCUMENTED FOR THE PATIENT'S WOUND: LOCATION: R GROIN, MID ABDOMEN DURATION: 12/03/24 CONTEXT: SURGICAL THE PATIENT IS A 79-YEAR-OLD FEMALE WITH HYPOTHYROIDISM, OBSTRUCTIVE SLEEP APNEA, AND HYPERTENSION WHO RETURNS TODAY FOR FOLLOW UP OF SURGICAL WOUND RIGHT GROIN AND LOWER MID ABDOMEN. SHE ORIGINALLY UNDERWENT OPEN REPAIR OF A STRANGULATED RIGHT FEMORAL HERNIA AND SMALL BOWEL RESECTION WITH THE ANASTOMOSIS ON DECEMBER 03, 2024. SHE DEVELOPED AN ENTERO-CUTANEOUS FISTULA AND UNDERWENT LAPAROTOMY WITH SMALL BOWEL RESECTION ON DECEMBER 14, 2024. THE PATIENT IS CURRENTLY RECEIVING DRESSING CHANGES WITH SILVER COLLAGEN TO BOTH WOUNDS. ON TODAY'S VISIT SHE DENIES HAVING ANY PAIN OR DISCOMFORT NOR HAS SHE HAD ANY RECENT FEVER OR CHILLS. THE PATIENT REPORTS A GOOD APPETITE AND IS TAKING PROTEIN SUPPLEMENTS. HER STRENGTH IS CONTINUING TO IMPROVE. THE PATIENT IS NOT CURRENTLY ON ANY ANTIBIOTIC THERAPY. ON EXAM TODAY BOTH WOUNDS ARE HEALED. LABS 12/20/24: WBC 7.8, HEMOGLOBIN 8.2, HCT 25.0, SODIUM 130, ELECTROLYTES OTHERWISE UNREMARKABLE, GFR GREATER THAN 60, AST 67, ALT 52 FAMILY HISTORY THIS INFORMATION WAS OBTAINED FROM THE CHART, PATIENT. HEART DISEASE- S[place] SOCIAL HISTORY THIS INFORMATION WAS OBTAINED FROM THE CHART, PATIENT. NEVER SMOKER CHILDREN LIVES IN: PRIVATE HOME INDEPENDENTLY MARITAL STATUS: GLORIA ZAMORA [id number] 1945 MEDICAL HISTORY THIS INFORMATION WAS OBTAINED FROM THE CHART, PATIENT. PATIENT HAS A MEDICAL HISTORY OF: HYPO-OSMOLALITY AND HYPONATREMIA DIAPHRAGMATIC HERNIA WITHOUT OBSTRUCTION OR GANGRENE HYEPRLIPIDEMIA ESSENTIAL HYPERTENSION OBSTRUCTIVE SLEEP APNEA PRIMARY INSOMNIA ANEMIA HYPOTHYROIDISM ROSACEA OSTEOARTHRITIS ADDITIONAL INFORMATION DOES PATIENT HAVE A HISTORY OF CANCER? YES? COMPLETE ALL QUESTIONS.: NO SURGICAL HISTORY THIS INFORMATION WAS OBTAINED FROM THE CHART, PATIENT. PATIENT HAS A SURGICAL HISTORY OF: TOTAL REPLACEMENT OF RIGHT SHOULDER JOINT- 09/28/2023 LASIK- ANESTHESIA- HAND SURGERY - (2022) BREAST MAMOPLASTY- FOOT SURGERY RIGHT- UVULOPALATOPHARYNGOPLASTY- BILATERAL BREAST REDUCTION- TRIGGER FINGER RELEASE- FACELIFT- BLADDER REPAIR - PARTIAL THYROIDECTOMY - HX OF LEFT KNEE REPLACEMENT- REVIEW OF SYSTEMS (ROS) THIS INFORMATION WAS OBTAINED FROM THE PATIENT. COMPLAINTS AND SYMPTOMS PATIENT COM PLAINS OF: CO-MORBID CONDITIONS: HYPERTENSION PRIOR WOUND HISTORY: DRAINAGE PATIENT DENIES COM PLAINTS OR SY M PTOM S RELATED TO: CARDIOVASCULAR (CENTRAL): CHEST PAIN, DYSPNEA ON EXERTION CONSTITUTIONAL SYMPTOMS (GENERAL HEALTH): CHILLS, FEVER, LOSS OF APPETITE PRIOR WOUND HISTORY: BLEEDING, ERYTHEMA, MALODOR RESPIRATORY: COUGH, SHORTNESS OF BREATH GLORIA ZAMORA [id number] 1945 OBJECTIVE VITALS HEIGHT/LENGTH: 59 IN (149.86 CM), WEIGHT: 154 LBS (70 KGS), BMI: 31.1, TEMPERATURE: 98.3 ?F (36.83 ?C), PULSE: 71 BPM, RESPIRATORY RATE: 16 BREATHS/MIN, BLOOD PRESSURE: 128/64 MMHG, PULSE OXIMETRY: 95 %. PHYSICAL EXAM CONSTITUTIONAL: VITAL SIGNS REVIEWED AND NOTED. WELL DEVELOPED, WELL NOURISHED, AND IN NO ACUTE DISTRESS. ALERT AND ORIENTED X3. RESPIRATORY: EVEN RESPIRATIONS WITHOUT USE OF ACCESSORY MUSCLES. NO INTERCOASTAL RETRACTIONS NOTED. EVEN AND NON LABORED RESPIRATION. INTEGUMENTARY (HAIR, SKIN): WELL HEALED INCISIONS, NO ERYTHEMA. NO SWELLING OR TENDERNESS. SEE WOUND ASSESSMENT. SKIN WARM AND DRY. NO RASHES. NEUROLOGICAL: SENSATION: SYMMETRIC FUNCTION BY INFORMAL OBSERVATION. PSYCHIATRIC: ORIENTATION TO TIME, PLACE AND PERSON: NORMAL AFFECT WITH NORMAL THOUGHT PATTERN. WOUND ASSESSMENT(S) WOUND #1 ABDOMEN - RLQ IS A CHRONIC FULL THICKNESS SURGICAL WOUND ACQUIRED ON 12/03/2024 AND HAS RECEIVED AN OUTCOME OF HEALED - NO NEW WOUND(S). INITIAL WOUND ENCOUNTER MEASUREMENTS ARE 0CM LENGTH X 0CM WIDTH WITH NO MEASURABLE DEPTH, WITH AN AREA OF 0 SQ CM.INITIAL WOUND ENCOUNTER PREVIOUS MEASUREMENTS FROM 02/05/2025 ARE 0.5CM LENGTH X 1.9CM WIDTH X 0.3CM DEPTH, WITH AN AREA OF 0.95 SQ CM AND A VOLUME OF 0.285 CUBIC CM. NO TUNNELING HAS BEEN NOTED. NO SINUS TRACT HAS BEEN NOTED. NO UNDERMINING HAS BEEN NOTED. THERE WAS NO DRAINAGE NOTED. THE PATIENT REPORTS A WOUND PAIN OF LEVEL 0/10. THE WOUND MARGIN IS EPITHELIAL RESURFACING WOUND BED HAS NO, GRANULATION, NO SLOUGH, NO ESCHAR, YES EPITHELIALIZATION. THE PERIWOUND SKIN TEXTURE IS NORMAL. THE PERIWOUND SKIN MOISTURE IS NORMAL. THE PERIWOUND SKIN COLOR IS NORMAL. THE TEMPERATURE OF THE PERIWOUND SKIN IS WNL. PERIWOUND SKIN DOES NOT EXHIBIT SIGNS OR SYMPTOMS OF INFECTION. LOCAL PULSE IS N/A. WOUND #2 ABDOMEN - MIDLINE IS A CHRONIC FULL THICKNESS SURGICAL WOUND ACQUIRED ON 12/03/2024 AND HAS RECEIVED AN OUTCOME OF HEALED - NO NEW WOUND(S). INITIAL WOUND ENCOUNTER MEASUREMENTS ARE 0CM LENGTH X 0CM WIDTH WITH NO MEASURABLE DEPTH, WITH AN AREA OF 0 SQ CM.INITIAL WOUND ENCOUNTER PREVIOUS MEASUREMENTS FROM 02/05/2025 ARE 0.3CM LENGTH X 0.4CM WIDTH X 0.4CM DEPTH, WITH AN AREA OF 0.12 SQ CM AND A VOLUME OF 0.048 CUBIC CM. NO TUNNELING HAS BEEN NOTED. NO SINUS TRACT HAS BEEN NOTED. NO UNDERMINING HAS BEEN NOTED. THERE WAS NO DRAINAGE NOTED. THE PATIENT REPORTS A WOUND PAIN OF LEVEL 0/10. THE WOUND MARGIN IS EPITHELIAL RESURFACING WOUND BED HAS NO, GRANULATION, NO SLOUGH, NO ESCHAR, YES EPITHELIALIZATION. THE PERIWOUND SKIN TEXTURE IS NORMAL. THE PERIWOUND SKIN MOISTURE IS NORMAL. THE PERIWOUND SKIN COLOR IS NORMAL. THE TEMPERATURE OF THE PERIWOUND SKIN IS WNL. LOCAL PULSE IS N/A. ASSESSMENT ACTIVE PROBLEMS ICD-10 (ENCOUNTER DIAGNOSIS) S31.103D - UNSPECIFIED OPEN WOUND OF ABDOMINAL WALL, RIGHT LOWER QUADRANT GLORIA ZAMORA [id number] 1945 WITHOUT PENETRATION INTO PERITONEAL CAVITY, SUBSEQUENT ENCOUNTER (ENCOUNTER DIAGNOSIS) S31.105D - UNSPECIFIED OPEN WOUND OF ABDOMINAL WALL, PERIUMBILIC REGION WITHOUT PENETRATION INTO PERITONEAL CAVITY, SUBSEQUENT ENCOUNTER GENERAL NOTES OPEN SURGICAL WOUND RIGHT GROIN HEALED OPEN SURGICAL WOUND LOWER MIDLINE HEALED THE FOLLOWING FACTORS HAVE BEEN IDENTIFIED THAT MAY AFFECT WOUND HEALING: DEVITALIZED TISSUE BIOFILM ADVANCED AGE RECENT SURGERY GOALS: REMOVE DEVITALIZED TISSUE REMOVE AND PREVENT BIOFILM PREVENT INFECTION WOUND CLOSURE PLAN: DISCONTINUE DRESSING CHANGES, FOLLOW UP AT WOUND CENTER NEEDED. PLAN ADDITIONAL ORDERS: CLEANSER OTHER ORDER: - MAY SH[facility] OTHER ORDER: - ALPHA: PT HEALED, WOUND CARE SERVICES NO LONGER NEEDED FOLLOW-UP APPOINTMENTS DISCHARGE FROM OUTPATIENT SERVICES. - WOUND HEALED SCRIBING ATTESTATION I ATTEST, THE NURSE, THAT I SCRIBED THESE ORDERS FOR THE WOUND CARE PROVIDER. PROVIDER REVIEW AND ATTESTATION: REVIEWED AND EVALUATED LABS. REVIEWED HOSPITAL RECORDS. DISCUSSED THE PLAN OF CARE @ BEDSIDE WITH - THE PATIENT I AGREE AND ATTEST TO THE ABOVE INFORMATION PROVIDED FROM OTHER LICENSED PROFESSIONALS. PLAN OF CARE: 01. ENSURE/ESTABLISH OPTIMAL BLOOD FLOW : - REVIEWED, NOT APPLICABLE 02. ASSESS FOR/TREAT INFECTION : - EVALUATE FOR SIGNS AND SYMPTOMS OF INFECTION AND DOCUMENT FINDINGS. STATUS: COMPLETED DATE: 01/22/2025 03. DEBRIDE WEEKLY OR MORE OFTEN PRN : - EVALUATE PATIENT IN CENTER WEEKLY TO ASSESS WOUND BED AND MARGINS FOR NEED FOR DEBRIDEMENT. STATUS: COMPLETED DATE: 02/12/2025 - DEBRIDEMENT BY ANY METHOD TO REMOVE DEVITALIZED/NECROTIC TISSUE TO PROMOTE HEALING AND PREVENT FURTHER COMPLICATIONS. GOAL IS TO STIMULATE AND/OR MAINTAIN ACUTE PHASE OF WOUND HEALING BY REDUCING BACTERIAL BURDEN AND DEVITALIZED/NON-VIABLE TISSUE. STATUS: COMPLETED DATE: 02/12/2025 04. OPTIMIZE GLUCOSE CONTROL AND NUTRITION : - ORDER/REVIEW PERTINENT LABS TO EVALUATE RENAL FUNCTION, GLUCOSE CONTROL, AND NUTRITIONAL STATUS. STATUS: COMPLETED DATE: 02/12/2025 GLORIA ZAMORA [id number] 1945 05. OFFLOADING PLAN : - REVIEWED, NOT APPLICABLE 06. OPTIMIZE HOST FACTORS: - ASSESS LIFESTYLE FACTORS SUCH SMOKING, ALCOHOL/DRUG ABUSE, EATING HABITS/MALNUTRITION AND ACTIVITY LEVEL. STATUS: COMPLETED DATE: 02/12/2025 07. DRESSING SELECTION : - CHOOSE TOPICAL TREATMENTS AND/OR DRESSING BASED ON WOUND TYPE AND APPEARANCE, PERIWOUND SKIN CONDITION, WOUND SIZE AND DEPTH, ANATOMIC LOCATION, VOLUME OF EXUDATE, EDEMA IN THE LOWER EXTREMITIES, AND RISK OR PRESENCE OF INFECTION. STATUS: COMPLETED DATE: 01/22/2025 08. ADVANCED MODALITIES : - SET TREATMENT GOALS ACCORDING TO PATIENT AND/OR CAREGIVER?S ABILITY/ COMPLIANCE. STATUS: COMPLETED DATE: 02/12/2025 09. FALL PREVENTION : - COMPLETE FALL ASSESSMENT. STATUS: COMPLETED DATE: 01/15/2025 10. PAIN MANAGEMENT : - COMPLETE PAIN ASSESSMENT STATUS: COMPLETED DATE: 01/15/2025 11. MEASURABLE GOALS FOR WOUND HEALING AND/OR HYPERBARIC OXYGEN THERAPY : - WOUND CLOSURE STATUS: COMPLETED DATE: 02/12/2025 12. DURATION/FREQUENCY OF WOUND CARE VISITS : - 1X WEEKLY FOR 30 DAYS STATUS: COMPLETED DATE: 02/12/2025 ELECTRONIC SIGNATURE(S) SIGNED BY: DATE: DUC MENENDEZ MD 02/14/2025 15:36:28 (PT) 02/12/2025 1:07:57 PM VERSION ELECTRONICALLY DATE: SIGNED BY: DUC MENENDEZ MD 02/12/2025 15:58:23 (PT) ENTERED BY: THU CARTER ON 02/14/2025 13:09:34 (PT) GLORIA ZAMORA [id number] 1945
== END ==
PROVIDERS: Family Provider Family Medicine; PCP Family Medicine; Referring Provider Family Medicine; Visit Provider Surgery
DX: S31.103D Unspecified open wound of abdominal wall, right lower quadrant without penetration into peritoneal cavity, subsequent encounter (principal); S31.109D Unspecified open wound of abdominal wall, unspecified quadrant without penetration into peritoneal cavity, subsequent encounter
CPT/HCPCS: 99213

== ENCOUNTER → 2025-03-27 09:51 | Outpatient (CLI) | payer MEDICARE, OTHER, SELFPAY ==
[2025-01-19 14:12] VITALS: BMI 30.2
[2025-03-27 11:10] LABS: Add Manual Diff / Slide Review NO; Basophils Absolute Auto 0 /uL (0-100); Eosinophils Absolute Auto 200 /uL (0-450); Eosinophils Percent Auto 5.1 % (2-4); Hematocrit 33.5 % (36-46); Hemoglobin 10.9 g/dL (12.0-16.0); Lymphocytes Absolute Auto 500 /uL (1100-4500); Lymphocytes Percent Auto 14.5 % (25-40); Mean Corpuscular HGB Conc 32.7 % (30-36); Mean Corpuscular Hemoglobin 28.6 PG (26-34); Mean Corpuscular Volume 87.6 fL (80-100); Monocytes Absolute Auto 400 /uL (0-900); Monocytes Percent Auto 9.9 % (3-14); Neutrophils Absolute Auto 2500 /uL (1500-7000); Neutrophils Percent Auto 69.5 % (50-75); Platelet Count 309 X10^3/uL (150-400); Red Blood Cell Count 3.82 X10^6/uL (4.0-5.2); Red Cell Distribution Width 15.8 % (11.6-14.8); White Blood Cell Count 3.5 X10^3/uL (4.5-11.0)
[2025-03-27 11:20] LABS: HEMOLYSIS < 15 (0-50); Iron 39 ug/dL (37-170)
[2025-03-27 11:27] LABS: Alanine Aminotransferase 17 IU/L (<35); Albumin 4.3 g/dL (3.5-5.0); Albumin Globulin Ratio 1.5 (1.0-2.8); Alkaline Phosphatase 89 U/L (38-126); Aspartate Aminotransferase 26 IU/L (14-36); BUN Creatinine Ratio 32.3 (6-22); Bilirubin Total 0.4 mg/dL (0.2-1.3); Blood Urea Nitrogen 20 mg/dL (7-17); Calcium 9.2 mg/dL (8.4-10.2); Carbon Dioxide 27 mmol/L (22-32); Chloride 98 mmol/L (98-107); Cholesterol 157 mg/dL (140-199); Estimated Glomerular Filt Rate > 60 mL/min (>60); Globulin 2.8 g/dL (1.7-4.1); Glucose 84 mg/dL (70-99); HDL Cholesterol 54 mg/dL (40-60); HEMOLYSIS < 15 (0-50); LDL Cholesterol Calculated 82 mg/dL (<100); Potassium 4.4 mmol/L (3.4-5.1); Sodium 133 mmol/L (137-145); Total Protein 7.1 g/dL (6.3-8.2); Triglycerides 103 mg/dL (35-150)
[2025-03-27 11:33] LABS: Percent Iron Saturation 11 % (15-50); Total Iron Binding Capacity 362 ug/dL (265-497); Transferrin 293 mg/dL (206-381)
[2025-03-27 11:39] LABS: Free T4, Direct Thyroxine 1.21 ng/dL (0.78-2.19)
[2025-03-27 11:53] LABS: Thyroid Stimulating Hormone 3.06 uIU/mL (0.47-4.68)
[2025-03-27 12:12] LABS: Vitamin B12 283 pg/mL (239-931)
== END ==
PROVIDERS: Family Provider Family Medicine; PCP Family Medicine; Referring Provider Family Medicine; Visit Provider Family Medicine
DX: E87.1 Hypo-osmolality and hyponatremia (principal); I10 Essential (primary) hypertension; E89.0 Postprocedural hypothyroidism
CPT/HCPCS: 36415; 80053; 80061; 82607; 83540; 83550; 84439; 84443; 85025

== ENCOUNTER → 2025-06-13 11:45 | Outpatient (CLI) | payer MEDICARE, OTHER, SELFPAY ==
[2025-01-19 14:12] VITALS: BMI 30.2
--- NOTE | 2025-06-13 11:47 | DI.MG.S_ITS ---
MM screening mammo BI: 06/13/2025. BI-RADS: 1 CLINICAL: 79-year old female for bilateral screening mammogram. Tyrer-Cuzick lifetime risk of 1.4%. No personal or first-degree family history of breast cancer. The patient is status-post reduction mammoplasty. PRIOR EXAMS 06/12/2024, 05/24/2023, 05/21/2022, 05/13/2021, MAMMOGRAPHY TECHNIQUE: 2D and 3D (tomosynthesis) digital mammographic views obtained, with additional images as needed for full coverage. Current study was also evaluated with a Computer Aided Detection (CAD) system. DENSITY A. The breasts are almost entirely fatty. MAMMOGRAPHY FINDINGS Bilateral: No suspicious mass, asymmetry, microcalcification, or other abnormality seen. IMPRESSION: * No evidence of malignancy. RECOMMENDATIONS Bilateral * Annual screening mammography. OVERALL ASSESSMENT CATEGORY BI-RADS-1: Negative. [employer] recommends annual screening mammography beginning at age 40 for women with average risk of breast cancer. ELECTRONICALLY SIGNED: Wellington Tanner M.D. on 06/13/2025 at 08:14:08 PM PT Interpreting Station ID: [id number]
== END ==
LOC: MAMMO 11:46
PROVIDERS: Family Provider Family Medicine; PCP Family Medicine; Referring Provider Family Medicine; Visit Provider Family Medicine
DX: Z12.31 Encounter for screening mammogram for malignant neoplasm of breast (principal); R92.313 Mammographic fatty tissue density, bilateral breasts
CPT/HCPCS: 77063; 77067

== ENCOUNTER → 2025-08-07 15:53 | Outpatient (CLI) | payer MEDICARE, OTHER, SELFPAY ==
[2025-01-19 14:12] VITALS: BMI 30.2
[2025-08-07 16:59] LABS: Hematocrit 34.9 % (36-46); Hemoglobin 11.7 g/dL (12.0-16.0); Mean Corpuscular HGB Conc 33.6 % (30-36); Mean Corpuscular Hemoglobin 29.5 PG (26-34); Mean Corpuscular Volume 87.9 fL (80-100); Platelet Count 258 X10^3/uL (150-400)
[2025-08-07 17:29] LABS: Alanine Aminotransferase 20 IU/L (<35); Albumin 4.4 g/dL (3.5-5.0); Albumin Globulin Ratio 1.6 (1.0-2.8); Alkaline Phosphatase 113 U/L (38-126); Blood Urea Nitrogen 20 mg/dL (7-17); Calcium 9.2 mg/dL (8.4-10.2); Carbon Dioxide 26 mmol/L (22-32); Chloride 96 mmol/L (98-107); Estimated Glomerular Filt Rate > 60 mL/min (>60); Globulin 2.7 g/dL (1.7-4.1); Glucose 87 mg/dL (70-99); HEMOLYSIS < 15 (0-50); Potassium 4.7 mmol/L (3.4-5.1); Sodium 132 mmol/L (137-145); Total Protein 7.1 g/dL (6.3-8.2)
== END ==
PROVIDERS: Family Provider Family Medicine; PCP Family Medicine; Referring Provider Family Medicine; Visit Provider Family Medicine
DX: K46.9 Unspecified abdominal hernia without obstruction or gangrene (principal); D64.9 Anemia, unspecified; I10 Essential (primary) hypertension
CPT/HCPCS: 36415; 80053; 85027

== ENCOUNTER → 2025-08-09 12:51 | Outpatient (CLI) | payer MEDICARE, OTHER, SELFPAY ==
[2025-01-19 14:12] VITALS: BMI 30.2
--- NOTE | 2025-08-09 12:53 | DI.CT.S_ITS ---
PROCEDURE: CT ABDOMEN PELVIS W CON INDICATIONS: hernia, hx of bowel obstruction TECHNIQUE: After the administration of intravenous contrast, axial sections acquired from the lung bases to the pubic symphysis. Coronal and sagittal reformats were performed. For radiation dose reduction, the following was used: automated exposure control, adjustment of mA and/or kV according to patient size. COMPARISON: [facility], CT, CT ABDOMEN PELVIS W CON, 06/24/2023, 13:52. [facility], CT, CT ABDOMEN PELVIS W CON, 12/10/2024, 23:30. FINDINGS: Image quality: Diagnostic. Lower Chest: Left lung base nodular opacity measuring 0.5 cm, (5/35). Prior CT demonstrated streaky opacity at this site. Small hiatal hernia. ABDOMEN: Liver: No solid mass. Calcified granuloma. Gallbladder: No radiopaque gallstones or wall thickening. Biliary ducts: No biliary dilation. Pancreas: No ductal dilation. Spleen: Size is within normal limits. Calcified granulomas. Adrenal Glands: No adrenal nodules. Kidneys and Ureters: No hydronephrosis. No solid mass. No complex renal cystic lesion which requires follow up. Stomach and Bowel: Diverticulosis. Normal appendix. Small bowel to small bowel anastomosis in the right lower abdomen. Small focus of density within the patulous portion of the small bowel measuring 0.3 cm, (2/44). Not seen on the prior CT. The clinical significance of this finding is uncertain. No small bowel obstruction. Stomach is not significantly distended. Small foci of density within the stomach which could represent medication fragment or food residue. Peritoneum: No abnormal intraperitoneal fluid. No free air. Ventral Wall: Wide neck ventral abdominal wall hernia containing transverse colon, (2/68), previously containing fat. Lower ventral abdominal hernia containing bowel, (4/92). Abdominal Nodes: No retroperitoneal or mesenteric adenopathy by size criteria. Vessels: Aorta and inferior vena cava are normal in size. PELVIS: Pelvic Organs: Anteverted uterus. Suspected fibroid or fibroids. Bladder: No bladder wall thickening, accounting for underdistention. Pelvic Nodes: No enlarged lymph nodes. Miscellaneous: No hernia containing bowel, (2/112). Bones: No aggressive osseous abnormality. Multilevel DDD. IMPRESSION: 1. Mid and lower ventral abdominal wall hernias and right inguinal hernia containing bowel. 2. No bowel obstruction. No free fluid. 3. Small density adjacent to the small bowel anastomosis. Clinical significance is uncertain. This could represent food residue or medication tablet fragment. Hypervascular mass is difficult to exclude. -Recommend clinical correlation. If indicated follow-up CT could be performed. Dictated by: Dionicio Pope M.D. on 08/09/2025 at 16:01 Approved by: Dionicio Pope M.D. on 08/09/2025 at 16:18
== END ==
PROVIDERS: Family Provider Family Medicine; PCP Family Medicine; Referring Provider Family Medicine; Visit Provider Family Medicine
DX: K46.9 Unspecified abdominal hernia without obstruction or gangrene (principal); K43.9 Ventral hernia without obstruction or gangrene; K40.90 Unilateral inguinal hernia, without obstruction or gangrene, not specified as recurrent; D64.9 Anemia, unspecified; K57.90 Diverticulosis of intestine, part unspecified, without perforation or abscess without bleeding; Z98.0 Intestinal bypass and anastomosis status
CPT/HCPCS: 74177; Q9967

== ENCOUNTER → 2025-09-24 12:14 | Outpatient (CLI) | payer MEDICARE, OTHER, SELFPAY ==
[2025-01-19 14:12] VITALS: BMI 30.2
[2025-09-24 12:45] LABS: Hematocrit 35.5 % (36-46); Hemoglobin 11.7 g/dL (12.0-16.0); Mean Corpuscular HGB Conc 32.8 % (30-36); Mean Corpuscular Hemoglobin 29.6 PG (26-34); Mean Corpuscular Volume 90.0 fL (80-100); Platelet Count 302 X10^3/uL (150-400)
[2025-09-24 13:07] LABS: Alanine Aminotransferase 19 IU/L (<35); Albumin 4.5 g/dL (3.5-5.0); Albumin Globulin Ratio 1.7 (1.0-2.8); Alkaline Phosphatase 97 U/L (38-126); Blood Urea Nitrogen 18 mg/dL (7-17); Calcium 9.1 mg/dL (8.4-10.2); Carbon Dioxide 25 mmol/L (22-32); Chloride 100 mmol/L (98-107); Estimated Glomerular Filt Rate > 60 mL/min (>60); Globulin 2.7 g/dL (1.7-4.1); Glucose 76 mg/dL (70-99); HEMOLYSIS < 15 (0-50); Potassium 4.6 mmol/L (3.4-5.1); Sodium 135 mmol/L (137-145); Total Protein 7.2 g/dL (6.3-8.2)
== END ==
PROVIDERS: PCP Family Medicine; Referring Provider Family Medicine; Visit Provider Family Medicine
DX: Z00.00 Encounter for general adult medical examination without abnormal findings (principal); K43.2 Incisional hernia without obstruction or gangrene; D50.8 Other iron deficiency anemias; E87.1 Hypo-osmolality and hyponatremia; E87.6 Hypokalemia
CPT/HCPCS: 36415; 80053; 85027

== ENCOUNTER 2025-09-26 08:58 | Day surgery (SDC) | payer MEDICARE, OTHER, SELFPAY ==
[2025-01-19 14:12] VITALS: BMI 30.2
[2025-09-11 13:58] VITALS: BMI 30.7
[2025-09-26] VITALS (15 sets, daily range): BP systolic 133–173; BP diastolic 54–85; PULSE 77–89; RESP 13–23; TEMP 36.2–36.9; O2SAT 93–99; BMI 32.9
[2025-09-26] MEDS: LACTATED RINGERS 1,000 ML 42 ML IV ×2 (10:11→13:47)
--- NOTE | 2025-09-26 10:41 | P.HP_ITS ---
History of Present Illness
--- NOTE | 2025-09-26 10:41 | PM.HP.IH.1 ---
History of Present Illness History of Present Illness Date Patient Seen: 09/26/25 Time Patient Seen: 10:41 Chief complaint: OPB Narrative: Kaila is a 80-year-old woman who presented in November with an incarcerated femoral hernia causing a bowel obstruction. She had an open femoral hernia repair with a Jami primary closure and a small-bowel resection. On postoperative day 10 she developed anastomotic leak with fistulization to the open right femoral hernia repair wound and was taken back to the operating room for a bowel resection and revision. Today she presents with a recurrent right femoral hernia, and at least one ventral incisional hernia repair that bothers her. On CT it appears that she may have 2 ventral incisional hernias in the midline. See prior office note for more details. 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 Allergic rhinitis Osteoarthritis (~1997) Obstructive sleep apnea of adult Primary insomnia Lichen sclerosus et atrophicus Vitamin D deficiency Chronic cough Osteopenia HTN (hypertension) (~2009) Hyperlipidemia Surgical History (Updated 09/11/25 @ 14:19 by Jaclyn Tello RN) Hx of abdominal surgery (12/03/24) Hx of abdominal surgery (12/03/24) History of hernia repair History of left knee replacement 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) Hx of LASIK Anesthesia History of hand surgery (~2022) History of breast mammoplasty S/P foot surgery, right S/P UVPP (uvulopalatopharyngoplasty) Hx of bilateral breast reduction surgery S/P trigger finger release History of facelift Hx of bladder repair surgery Hx of partial thyroidectomy Hx of partial thyroidectomy Family History Mother Heart attack Brother History of heart disease Social History (Updated 09/24/25 @ 11:18 by Chanelle Serrano MA) marital status: number of children: 2 household members: none lives independently: Yes caregiver/support person: No housing: house pets and animals: No education level: college occupational status: previously employed current occupational exposures/hazards: No ed/holiness: [employer] special ed needs: No travel history: recent leisure activities: reading and volunteer work seatbelt use: always helmet use: No water heater temp set < 120 deg: Yes working smoke detector in home: Yes fire extinguisher in home: Yes carbon monox detector in home: Yes firearms in home: Yes firearms unloaded and locked: Yes do you feel safe at home: Yes Smoking Status: Never smoker second hand exposure: Yes alcohol intake: current substance use type: does not use during the past year weight has: remained stable well-balanced diet: daily or most days daily servings fruits/ve-4 caffeine: Yes eating out: 1-3 times/week Type(s) of exercise: independent ambulation, irregular exercise, occasional exercise, advised to exercise at least 150 min/week (moderate intensity aerobic) and sedentary lifestyle frequency: does not exercise Meds Home Medications and Allergies Home Medications ?Medication ?Instructions ?Recorded ?Confirmed ?Type clobetasol 0.05 % topical cream 1 applic topical DAILY #60 grams 09/25/24 09/26/25 Rx conjugated estrogens 0.625 mg/gram 0.3125 mg vaginal QWEEK #30 grams 09/25/24 09/26/25 Rx vaginal cream (Premarin) acetaminophen 500 mg tablet 650 mg PO BID PRN pain 01/23/25 09/26/25 History (Tylenol Extra Strength) ascorbate calcium (vitamin C) 500 1,000 mg PO DAILY 01/23/25 09/26/25 History mg tablet atorvastatin 10 mg tablet 10 mg PO DAILY #90 tabs 01/23/25 09/26/25 Rx ferrous sulfate 325 mg (65 mg 325 mg PO Q OTHER DAY 01/23/25 09/26/25 History iron) tablet,delayed release levothyroxine 100 mcg tablet 100 mcg PO DAILY #90 tabs 01/23/25 09/26/25 Rx (Synthroid) lisinopril 10 mg tablet 10 mg PO BEDTIME #90 tabs 01/23/25 09/26/25 Rx magnesium oxide 400 mg PO DAILY #30 caps 01/23/25 09/26/25 Rx meloxicam 15 mg tablet 15 mg PO DAILY #90 tabs 01/23/25 09/26/25 Rx zinc acetate 25 mg (zinc) capsule 25 mg PO DAILY 01/23/25 09/26/25 History potassium chloride 10 mEq 10 meq PO DAILY #90 caps 05/16/25 09/26/25 Rx capsule,extended release aspirin 81 mg tablet,delayed 81 mg PO DAILY 08/07/25 09/26/25 History release loratadine 10 mg tablet (Allergy 10 mg PO DAILY PRN allergy symptoms 08/07/25 09/26/25 History Relief (loratadine)) pantoprazole 40 mg tablet,delayed 40 mg PO DAILY PRN GI Prophylaxis 08/07/25 09/26/25 History release (Protonix) furosemide 20 mg tablet 20 mg PO BID #180 tabs 09/24/25 09/26/25 Rx Allergies Allergy/AdvReac Type Severity Reaction Status Date / Time sulfamethoxazole (From Allergy Intermediate Delayed Verified 09/26/25 09:47 Bactrim) skin rash trimethoprim (From Bactrim) Allergy Intermediate Delayed Verified 09/26/25 09:47 skin rash clavulanic acid (From AdvReac Severe It made Verified 09/26/25 09:47 Augmentin) me sick codeine (CODEINE) AdvReac Mild NAUSEA/VOMI Verified 09/26/25 09:47 TING Exam Vital Signs (past 8 hours): - 09/26/25 09:52 Temperature 98.4 F Pulse Rate 83 Respiratory Rate 16 Blood Pressure 144/72 H Pulse Oximetry 97 Oxygen Delivery Method Room Air Oxygen Delivery Method Room Air Narrative Exam Narrative: Recurrent right femoral hernia Midline ventral hernia defect Assessment & Plan Assessment and plan (1) Ventral incisional hernia: Status: Acute (2) Recurrent right femoral hernia: Status: Acute Plan We will attempt to perform a robotic recurrent right femoral hernia repair but if there was too much intra-abdominal adhesions we can perform an open recurrent right femoral hernia repair. We will also perform repair of any ventral hernias in an open fashion. Time-Based Coding :: [TOTAL MINUTES] spent with patient and on the chart (including review of chart, obtaining history, exam, reviewing outside data, placing orders, documenting exam and treatment plan, and counseling patient) on [DATE]. 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
--- NOTE | 2025-09-26 11:46 | SUR.OPER ---
Supine on padded OR bed, head on pillow, arms padded and tucked at sides, purple strap across shoulders, legs uncrossed, safety belt at thigh, tape over blanket over lower legs .
--- NOTE | 2025-09-26 15:45 | P.OP_ITS ---
Operative Date/Time/Diagnoses
--- NOTE | 2025-09-26 15:45 | PM.OP.1 ---
Operative Date/Time/Diagnoses Date of procedure: 09/26/25 Time of procedure: 15:45 Pre-op diagnosis: Recurrent right femoral hernia and ventral incisional hernia Post-op diagnosis: same Procedure & Clinicians Procedure: Robotic lysis of adhesions Robotic recurrent right femoral hernia repair with mesh Open ventral incisional hernia repair with mesh Same procedure(s) as scheduled: Yes Surgeon: Cam Gonzalez Assisted?: Yes Manager Library: Devyn Espino Anesthesia Type: General Operative Notes Findings: Extensive intra-abdominal adhesions, large right recurrent femoral hernia containing a loop of small bowel, 3 cm umbilical fascial defect Applied: none Estimated Blood Loss (mL): 9 Procedure in detail: The patient was given preoperative antibiotics. The patient was brought to the operating room, placed on the table in the supine position with the arms tucked and general anesthesia was induced. The abdomen was prepped and draped in the usual fashion. A time-out was performed. A 1 cm transverse incision was created superior to the umbilicus and dissection was carried down to the fascia. The fascia was grasped with a Larry clamp to elevate the abdominal wall. The fascia was scored transversely with cautery. The posterior sheath was grasped and divided sharply. A Peon clamp was used to griggs the peritoneum. The 12 mm robotic port was placed and the abdomen was insufflated to 15 mmHg. The camera was inserted, there was no evidence of any injury from the entry. 8 mm ports were placed under direct vision in the mid left and mid right abdomen. There were extensive intra-abdominal adhesions including loops of small bowel to the anterior abdominal wall. The closest of these filmy adhesions were taken down using the laparoscopic instruments. Once enough space was created the robot was docked. Extensive lysis of adhesions was performed using the robot carefully taken down all loops of small bowel that were adherent to the anterior abdominal wall. Eventually the entire lower abdomen and right lower quadrant were freed of adhesions. There was a large right femoral inguinal hernia containing a loop of small bowel. The patient was then positioned in Trendelenburg. We created a right peritoneal flap. The peritoneum was dissected out of the right femoral hernia and the Malick's ligament was exposed. There may have been a tongue of bladder within the hernia that was freed and returned to its anatomical position. An extra-large right Bard mesh was brought in and placed over the defect with the medial edge overlapping the pubic symphysis. We then closed the peritoneal flap with a running 3-0 barbed suture. We took one last look around the abdomen and saw no other abnormalities. The suture was removed and accounted for. The robot was undocked. The 8 mm ports were removed under direct vision. The abdomen was desufflated. The 12 mm port was removed. Next we turned attention towards the ventral hernia. A 5 cm incision was created through the original laparotomy scar over the hernia defect. The hernia sac was dissected free and the fascial edge was cleared of adipose tissue and scar tissue. The fascia was closed with multiple interrupted 0 Ethibond sutures. A piece of polypropylene mesh was trimmed to fit over the closure and attached with Tisseel. The skin incisions were closed with 4 Monocryl, Steri-Strips and Band-Aids. Devyn LUNA provided assistance with exposure, retraction and closure of incisions. Complications: none Post-operative Condition: stable Disposition: PACU
[2025-09-26] MEDS: KETOROLAC 30 MG/ML VIAL 15 MG IV (15:51)
[2025-09-26] MEDS: ACETAMINOPHEN 325 MG TABLET 650 MG PO ×2 (15:53→22:50)
--- NOTE | 2025-09-26 17:25 | PC.NURSE ---
Pt to room 212 via bed from PACU. Pt is awake and oriented x 3. Denies pain, nausea, or shortness of breath. SCD's on and running. Bed alarm on for safety. Pt oriented to room, call light, bed controls, and tv controls. Pt agrees to call for assistance as needed. RT in to set up Pt's own CPAP.
[2025-09-26] MEDS: FUROSEMIDE 20 MG TABLET PO (17:37)
[2025-09-26] MEDS: ONDANSETRON 4 MG/2 ML INJ IV (22:49)
[2025-09-26] MEDS: ATORVASTATIN 20 MG TABLET 10 MG PO (22:49)
[2025-09-26] MEDS: IBUPROFEN 600 MG TABLET PO (22:50)
[2025-09-27] MEDS: IBUPROFEN 600 MG TABLET PO (05:33)
[2025-09-27] MEDS: ACETAMINOPHEN 325 MG TABLET 650 MG PO (05:33)
[2025-09-27] MEDS: LEVOTHYROXINE 100 MCG TABLET PO (07:02)
[2025-09-27 07:58] VITALS: BP 117/56; PULSE 64; RESP 16; TEMP 36.4; O2SAT 100
[2025-09-27] MEDS: FUROSEMIDE 20 MG TABLET PO (09:37)
--- NOTE | 2025-09-27 10:38 | CM.DANOTE ---
B DCP Assessment note pt is a 80yo F admitted POD1 hernia repair with Dr. Carlos DUNCAN reviewed EMR per chart review, lives alone indep in [place]. drives at baseline. last admission was Nov 2024 where she dc'd to [facility]. per RN, no anticipated needs. eager to dc home. pt left prior to being seen by this DOG OR HORSE RACING OFFICIAL P: dc home with OP F/u as needed. no identified DCP needs at this time, follow as needed in case any should arise PERLA Linares Discharge Planning/Care Management CM Discharge Assessment Start: 09/26/25 09:18 Freq: Status: Active Protocol: Document 09/27/25 10:37 SL (Rec: 09/27/25 10:38 SL [id number]) Discharge Planning Assessment Assigned Discharge PERLA Stern Investment Consultant Provider [facility] Insurance Medicare Insurance Comment for life secondary DPOA/Assigned kasandra Orr Designee Name Contact Information [phone] Advance Directives? Yes Advance Directives No on File History Provided By Patient,Medical Record Prior Living House Arrangements Household Members none Type of Drives own vehicle transporation used prior to admit Independent with ADL Yes 's Is patient alert and Yes oriented? Comment 4WW Discharge Plan Home Referrals Initiated None needed Review Status In Process Please Provide Date 09/27/25 Initial DC Assessment Was Performed Next Review Type Continued Stay Review Pre-Anesthesia Assessment Start: 09/11/25 13:58 Freq: Status: Active Protocol: Document 09/11/25 13:58 CAB (Rec: 09/11/25 14:30 CAB [id number]) Pre-Anesthesia Assessment Information obtained Chart review via Preferred Name Kaila Height 149.86 cm Weight 68.946 kg Body Mass Index (BMI 30.7 ) If yes, specialist General surgeon seen Patient hospitalized Yes or treated in the ER in the last year? If yes, treated for Bowel obstruction, incarcerated right femoral hernia, admitted to 12/03/24-12/22/24 Does patient have None history of Is patient on No anticoagulant therapy? Does patient have No history of a pacermaker/ICD? Does patient have None history of Does patient have Yes history of Sleep Apnea? Patient uses CPAP/ Yes BiPAP? Does patient have None history of Does patient have a No neurostimulator or pain stimulator? Does patient have Yes chronic pain? If yes, where? Arthritis - knees, back Does patient have Yes history of GERD? Does patient have No history of kidney/ liver problems/ disease? Does patient have No Diabetes? Insulin pump or No continuous glucose monitor? GLP-1? No Does patient have Yes history of thyroid problems? Is patient ? No Is patient No ? Alcohol intake holidays/special occasions only Smoking status Never smoker Marijuana product No use? Other substance use None Does patient have Yes: Nausea history of anesthesia reactions ? Family history of No anesthesia reactions ? Patient/family No member history of Malignant Hyperthermia? Anesthesia Review No Requested
--- NOTE | 2025-09-27 10:41 | PC.NURSE ---
Patient A&Ox4, VSS, afebrile on RA. She denies need for pain medication this a.m. BS x4 hypo active, she tolerates breakfast well. She denies n/v, and she is abmbulatory i her room this a.m. MD Gonzalez at bedside this am. clears patient for discharge home today. She acknowledges meds, site care, acitivity limitations, s/sx of infection and follow up appointment. She is escorted via w/ch by MANAGER OF LEARNING w/ all of her belongings for discharge today home with friend to private vehicle for discharge home at 10 a.m.
== END 2025-09-27 10:00 | disposition home or self-care (01) ==
LOC: OR 08:59 → AC 09:05
PROVIDERS: PCP Family Medicine; Referring Provider Surgery; Visit Provider Surgery
PROC: (CPT 49659; principal; 2025-09-26 10:45)
DX: K41.91 Unilateral femoral hernia, without obstruction or gangrene, recurrent (principal); K43.9 Ventral hernia without obstruction or gangrene; K66.0 Peritoneal adhesions (postprocedural) (postinfection)
CPT/HCPCS: 49659; 49593; 82962; C1781; C9250; J0330; J0687; J0689; J1100; J1171; J1885; J2405; J2704; J3010; J7120